=== PATIENT | female | born 1950 | race Caucasian/White ===

== ENCOUNTER 2016-07-27 08:10 | Emergency (ER) | payer MEDICARE ==
[~2016-07-27 08:10] MED LIST: BENZ100C2 PO; DOXY100T PO; PRED50TA PO; VENTOLIN HFA18 GM INH
[2016-07-27] MEDS ORDERED: HYDROcodone/APAP 5/325MG 1 TAB TABLET PO ONE (08:45)
[2016-07-27 08:48] LABS: BILIRUBIN,URINE SMALL (NEG); GLUCOSE,URINE NEGATIVE (NEG); NITRITE,URINE NEGATIVE (NEG); PH,URINE 5.5; PROTEIN,URINE NEGATIVE (NEG-TRACE)
--- NOTE | 2016-07-27 08:50 | PHYS DOC ---
Past Medical History Past Medical History: Diabetes-Type II Additional Past Medical Histor: subdural hematoma Past Surgical History: Other Additional Past Surgical Histo: subdural hematoma Alcohol Use: None Drug Use: None Adult General Chief Complaint Chief Complaint: OTHER COMPLAINTS HPI HPI Patient is a 65 year old female presents to the emergency department with caregiver who states that this morning he noticed drainage coming from the umbilicus. He states the color appears cream to red. He placed 4x4 over the site and brought her here. He denies fever, chills, nausea or vomiting. Patient does state the area is painful. Review of Systems Review of Systems Constitutional: Denies fever or chills [] Eyes: Denies change in visual acuity, redness, or eye pain [] HENT: Denies nasal congestion or sore throat [] Respiratory: Denies cough or shortness of breath [] Cardiovascular: No additional information not addressed in HPI [] GI: Denies abdominal pain, nausea, vomiting, bloody stools or diarrhea [] : Denies dysuria or hematuria [] Musculoskeletal: Denies back pain or joint pain [] Integument: Denies rash or skin lesions. C/o drainage noted from the umbilicus area Neurologic: Denies headache, focal weakness or sensory changes [] Endocrine: Denies polyuria or polydipsia [] Current Medications Current Medications Current Medications Medications (Trade) Dose Ordered Sig/Maite Start Time Stop Time Status Last Admin Dose Admin Acetaminophen/ Hydrocodone Bitart (Lortab 5/325) 1 tab 1X ONCE 07/27/16 08:45 07/27/16 08:46 DC 07/27/16 08:42 1 TAB Ibuprofen (Motrin) 800 mg 1X ONCE 07/27/16 09:45 07/27/16 09:46 DC Allergies Allergies Allergies Coded Allergies Type Severity Reaction Last Updated Verified No Known Drug Allergies 08/25/15 No Physical Exam Physical Exam Constitutional: Well developed, well nourished, no acute distress, non-toxic appearance. [] HENT: Normocephalic, atraumatic, bilateral external ears normal, oropharynx moist, no oral exudates, nose normal. [] Eyes: PERRLA, EOMI, conjunctiva normal, no discharge. [] Neck: Normal range of motion, no tenderness, supple, no stridor. [] Cardiovascular:Heart rate regular rhythm, no murmur [] Lungs & Thorax: Bilateral breath sounds clear to auscultation [] Abdomen: Bowel sounds normal, soft, tenderness noted around the umbilicus, no masses, no pulsatile masses. [] Skin: Warm, dry, no erythema, no rash. Drainage noted around the umbilicus area just at the top of her old surgical scar. Patient noted to have hard tender area approximate size of large marble. Back: No tenderness Extremities: No tenderness, no cyanosis, no clubbing, ROM intact, no edema. [] Neurologic: Alert and oriented X 3, normal motor function, normal sensory function, no focal deficits noted. [] Psychologic: Affect normal, judgement normal, mood normal. [] Current Patient Data Vital Signs Vital Signs Date Time Temp Pulse Resp B/P (MAP) Pulse Ox O2 Delivery O2 Flow Rate FiO2 07/27/16 09:53 84 187/84 (118) 94 Room Air 07/27/16 08:32 98.5 16 98.5 Lab Values Laboratory Tests Test 07/27/16 08:30 07/27/16 08:35 Urine Collection Type Void Urine Color Glendy Urine Clarity Clear Urine pH 5.5 Urine Specific Ovid 1.025 Urine Protein Negative mg/dL (NEG-TRACE) Urine Glucose (UA) Negative mg/dL (NEG) Urine Ketones (Stick) Negative mg/dL (NEG) Urine Blood Negative (NEG) Urine Nitrite Negative (NEG) Urine Bilirubin Small (NEG) Urine Urobilinogen Dipstick 1.0 mg/dL (0.2 mg/dL) Urine Leukocyte Esterase Negative (NEG) Urine RBC Rare /HPF (0-2) Urine WBC 0 /HPF (0-4) Urine Squamous Epithelial Cells Few /LPF Urine Bacteria 0 /HPF (0-FEW) Urine Mucus Marked /LPF White Blood Count 8.0 x10^3/uL (4.0-11.0) Red Blood Count 4.77 x10^6/uL (3.50-5.40) Hemoglobin 14.1 g/dL (12.0-15.5) Hematocrit 41.5 % (36.0-47.0) Mean Corpuscular Volume 87 fL (79-100) Mean Corpuscular Hemoglobin 30 pg (25-35) Mean Corpuscular Hemoglobin Concent 34 g/dL (31-37) Red Cell Distribution Width 13.3 % (11.5-14.5) Platelet Count 292 x10^3/uL (140-400) Neutrophils (%) (Auto) 64 % (31-73) Lymphocytes (%) (Auto) 23 % (24-48) L Monocytes (%) (Auto) 9 % (0-9) Eosinophils (%) (Auto) 3 % (0-3) Basophils (%) (Auto) 1 % (0-3) Neutrophils # (Auto) 5.1 x10^3uL (1.8-7.7) Lymphocytes # (Auto) 1.9 x10^3/uL (1.0-4.8) Monocytes # (Auto) 0.7 x10^3/uL (0.0-1.1) Eosinophils # (Auto) 0.3 x10^3/uL (0.0-0.7) Basophils # (Auto) 0.1 x10^3/uL (0.0-0.2) Sodium Level 146 mmol/L (136-145) H Potassium Level 3.5 mmol/L (3.5-5.1) Chloride Level 109 mmol/L (98-107) H Carbon Dioxide Level 27 mmol/L (21-32) Anion Gap 10 (6-14) Blood Urea Nitrogen 14 mg/dL (7-20) Creatinine 1.0 mg/dL (0.6-1.0) Estimated GFR (Cockcroft-Gault) 55.8 BUN/Creatinine Ratio 14 (6-20) Glucose Level 143 mg/dL (70-99) H Lactic Acid Level 1.1 mmol/L (0.4-2.0) Calcium Level 8.6 mg/dL (8.5-10.1) Total Bilirubin 0.9 mg/dL (0.2-1.0) Aspartate Amino Transferase (AST) 14 U/L (15-37) L Alanine Aminotransferase (ALT) 22 U/L (14-59) Alkaline Phosphatase 74 U/L (46-116) Total Protein 7.1 g/dL (6.4-8.2) Albumin 3.1 g/dL (3.4-5.0) L Albumin/Globulin Ratio 0.8 (1.0-1.7) L Laboratory Tests 07/27/16 08:35 Laboratory Tests 07/27/16 08:35 EKG EKG [] Radiology/Procedures Radiology/Procedures [] Course & Med Decision Making Course & Med Decision Making Pertinent Labs and Imaging studies reviewed. (See chart for details) Patients BP was elevated, provided patient with pain medication as she states she is having pain with assessment. Patient was provided with hydrocodone and ibuprofen here in the emergency department. Spoke with Dr. Serna in regards to patient's treatment regimen. She 'll be placed on doxycycline at discharge with recommendations for follow-up with him in 3-5 days. He also recommended Percocet for pain control. Patient will be discharged home in stable condition recommended warm moist packs to the area. Caregiver agrees with discharge instructions treatment regimens and follow -up recommendations. Signs symptoms to return back to emergency department as been provided. [] Dragon Disclaimer Dragon Disclaimer This electronic medical record was generated, in whole or in part, using a voice recognition dictation system. Departure Departure Impression: Primary Impression: Abscess Disposition: 01 HOME, SELF-CARE Condition: STABLE Referrals: CHRISTOPH SERNA MD (PCP) Patient Instructions: Abscess, [id number] Additional Instructions: Activity as tolerated. Keep the area clean and dry. Medications as prescribed. Percocet will cause drowsiness do not take any be alert and oriented. Warm moist packs to the area 4 times a day. Follow-up the primary care physician next 3-5 days. Return back to emergency prior signs symptoms of become worse. Scripts Doxycycline Hyclate (DOXYCYCLINE HYCLATE) 100 Mg Capsule 1 CAP PO BID, #20 CAP Prov: ELLE PENDLETON APRN 07/27/16 Oxycodone/Apap 5-325 (PERCOCET 5-325 MG TABLET) 1 Each Tablet 1 TAB PO PRN Q6HRS Y for PAIN, #15 TAB 0 Refills Prov: ELLE PENDLETON APRN 07/27/16 ELLE PENDLETON APRN July 27, 2016 08:50
[2016-07-27 08:54] LABS: BASO # 0.1 x10^3/uL (0.0-0.2); BASO % 1 % (0-3); EOS % 3 % (0-3); HEMATOCRIT 41.5 % (36.0-47.0); HEMOGLOBIN 14.1 g/dL (12.0-15.5); LYMPH # 1.9 x10^3/uL (1.0-4.8); LYMPH % 23 % (24-48); MEAN CORPUSCULAR HEMOGLOBIN 30 pg (25-35); MEAN CORPUSCULAR HGB CONC 34 g/dL (31-37); MEAN CORPUSCULAR VOLUME 87 fL (79-100); MONO % 9 % (0-9); NEUT % 64 % (31-73); PLATELET COUNT 292 x10^3/uL (140-400); RED BLOOD COUNT 4.77 x10^6/uL (3.50-5.40); RED CELL DISTRIBUTION WIDTH 13.3 % (11.5-14.5)
[2016-07-27 08:56] LABS: BACTERIA,URINE 0 /HPF (0-FEW); RBC,URINE RARE /HPF (0-2); SQUAMOUS EPITHELIAL CELL,UR FEW /LPF; WBC,URINE 0 /HPF (0-4)
--- NOTE | 2016-07-27 08:56 | RAD ---
Examination: Ultrasound abdomen limited History: History of redness and swelling in the periumbilical region Findings: Limited views of the anterior abdominal wall in the periumbilical region demonstrates no evidence of focal fluid collection or abscess identified. Impression: No evidence of focal fluid collection or abscess identified in the periumbilical region.
[2016-07-27 09:00] LABS: CALCIUM 8.6 mg/dL (8.5-10.1); GFR 55.8; POTASSIUM 3.5 mmol/L (3.5-5.1)
[2016-07-27 09:06] LABS: ALBUMIN 3.1 g/dL (3.4-5.0); ALBUMIN/GLOBULIN RATIO 0.8 (1.0-1.7); TOTAL BILIRUBIN 0.9 mg/dL (0.2-1.0); TOTAL PROTEIN 7.1 g/dL (6.4-8.2)
[2016-07-27] MEDS ORDERED: IBUPROFEN 800 MG TABLET. PO ONE (09:45)
[2016-07-27 09:53] VITALS: BP 187/84
[2016-07-27] MEDS ORDERED: OXYC-323 PO (09:57)
[2016-07-27] MEDS ORDERED: DOXY100C2 PO (09:57)
== END 2016-07-27 10:21 | disposition home or self-care (01) ==
LOC: ER 08:45
DX: L02.216 Cutaneous abscess of umbilicus (principal); R03.0 Elevated blood-pressure reading, without diagnosis of hypertension; E11.9 Type 2 diabetes mellitus without complications
CPT/HCPCS: 36415; 76705; 80053; 81001; 83605; 85027; 87040; 87071; 87075; 87205; 99285-25

== ENCOUNTER 2016-08-02 15:59 | Inpatient (IN) | payer OTHER, MEDICARE ==
[~2016-08-02] VITALS: Ht 162.6 cm; Wt 109.3 kg
[~2016-08-02 15:59] MED LIST changes: +DOXY100C2 PO; +OXYC-323 PO
[2016-08-02 16:50] VITALS: BP 176/80
[2016-08-02 16:55] VITALS: BP 176/80
[2016-08-02] MEDS ORDERED: AMIT10TA PO (17:47)
[2016-08-02] MEDS ORDERED: DOXY100C2 PO (17:47)
[2016-08-02] MEDS ORDERED: DIPH25CA3 PO (17:47)
[2016-08-02] MEDS ORDERED: BRIM5DRO2 OD (17:47)
[2016-08-02] MEDS ORDERED: BIMA2.5D OD (17:47)
[2016-08-02] MEDS ORDERED: VENTOLIN HFA18 GM INH (17:47)
[2016-08-02] MEDS ORDERED: GLIM2TAB2 PO (17:47)
[2016-08-02] MEDS ORDERED: PANT40TA5 PO (17:47)
[2016-08-02] MEDS ORDERED: VANCOMYCIN PER PHARMACY MC PRN (18:30)
[2016-08-02] MEDS ORDERED: VANCOMYCIN 1 GM in IV NORMAL SALINE 250ML 250 ML IV SCH (18:30)
[2016-08-02] MEDS ORDERED: diphenhydrAMINE HCL 25 MG CAPSULE PO PRN (18:45)
[2016-08-02] MEDS ORDERED: oxyCODONE/APAP 5/325 1 TAB TABLET PO PRN (18:45)
[2016-08-02 19:00] VITALS: BP 154/68
[2016-08-02] MEDS ORDERED: ALBUTEROL SULFATE 2.5 MG/3 ML NEBU. NEB PRN (19:00)
[2016-08-02] MEDS ORDERED: VANCOMYCIN 2 GM in IV NORMAL SALINE 500ML BAG 500 ML IV ONE (19:00)
[2016-08-02 19:43] LABS: BASO # 0.1 x10^3/uL (0.0-0.2); BASO % 1 % (0-3); EOS % 4 % (0-3); HEMATOCRIT 43.2 % (36.0-47.0); LYMPH # 1.7 x10^3/uL (1.0-4.8); LYMPH % 23 % (24-48); MEAN CORPUSCULAR HEMOGLOBIN 29 pg (25-35); MEAN CORPUSCULAR HGB CONC 32 g/dL (31-37); MEAN CORPUSCULAR VOLUME 89 fL (79-100); MONO % 9 % (0-9); NEUT % 64 % (31-73); PLATELET COUNT 267 x10^3/uL (140-400); RED BLOOD COUNT 4.86 x10^6/uL (3.50-5.40); RED CELL DISTRIBUTION WIDTH 13.4 % (11.5-14.5); WHITE BLOOD COUNT 7.4 x10^3/uL (4.0-11.0)
[2016-08-02 19:59] LABS: ALBUMIN/GLOBULIN RATIO 0.8 (1.0-1.7); CALCIUM 8.6 mg/dL (8.5-10.1); GFR 55.8; POTASSIUM 3.6 mmol/L (3.5-5.1); TOTAL BILIRUBIN 0.8 mg/dL (0.2-1.0); TOTAL PROTEIN 6.8 g/dL (6.4-8.2)
[2016-08-02] MEDS ORDERED: NON FORMULARY ITEM (Albuterol Sulfate (Ventolin Hfa Inhaler) 2 PUFF) INH SCH (20:00)
[2016-08-02] MEDS: ALBUTEROL SULFATE 2.5 MG/3 ML NEBU. NEB SCH ×2 (20:28→23:01)
[2016-08-02] MEDS: BRIMONIDINE 0.2% OPHTH SOLUTION 5ML BOTTLE. OD SCH (20:58)
[2016-08-02] MEDS: TIMOLOL 0.5% OPHTH SOLUTION 5ML BOTTLE. OD SCH (20:58)
[2016-08-02] MEDS: BENZONATATE 100 MG CAPSULE. PO SCH (20:59)
[2016-08-02] MEDS ORDERED: NON FORMULARY ITEM (Brimonidine Tartrate/Timolol (Combigan Eye Drops) 5 ML) OD SCH (21:00)
[2016-08-02] MEDS ORDERED: LATANOPROST 0.005% OPHTH SOLUTION 2.5ML BOTTLE. OD SCH (21:00)
[2016-08-02] MEDS: PIPERACILLIN/TAZOBACTAM 3.375 GM in IV NORMAL SALINE 50ML 50 ML IV SCH (21:51)
[2016-08-02] MEDS ORDERED: DEXTROSE 50% 25 GM / 50ML DISP.SYRIN. IV PRN (22:00)
[2016-08-02 23:00] VITALS: BP 149/81
[2016-08-03 03:00] VITALS: BP 166/82
[2016-08-03] MEDS: ALBUTEROL SULFATE 2.5 MG/3 ML NEBU. NEB SCH ×6 (03:55→23:01)
[2016-08-03] MEDS: PIPERACILLIN/TAZOBACTAM 3.375 GM in IV NORMAL SALINE 50ML 50 ML IV SCH ×6 (05:47→23:59)
[2016-08-03 07:00] VITALS: BP 148/77
[2016-08-03] MEDS: INSULIN ASPART 300 UNITS/3 ML INSULN.PEN SQ SCH ×3 (08:00→16:22)
[2016-08-03] MEDS: GLIMEPIRIDE 2 MG TABLET. PO SCH (08:29)
[2016-08-03] MEDS: PANTOPRAZOLE 40 MG TABLET.DR. PO SCH (08:29)
[2016-08-03] MEDS: BENZONATATE 100 MG CAPSULE. PO SCH ×3 (08:29→20:31)
[2016-08-03] MEDS: predniSONE 20 MG TABLET PO SCH (08:30)
[2016-08-03] MEDS: AMITRIPTYLINE HCL 10 MG TABLET. PO SCH (08:30)
[2016-08-03] MEDS: TIMOLOL 0.5% OPHTH SOLUTION 5ML BOTTLE. OD SCH ×2 (08:31→20:33)
[2016-08-03] MEDS: BRIMONIDINE 0.2% OPHTH SOLUTION 5ML BOTTLE. OD SCH ×2 (08:31→20:32)
--- NOTE | 2016-08-03 08:43 | PDOC ---
Infectious Disease Note Vital Sign Vital Signs Vital Signs Date Time Temp Pulse Resp B/P (MAP) Pulse Ox O2 Delivery O2 Flow Rate FiO2 08/03/16 07:34 Room Air 08/03/16 07:00 97.9 82 18 148/77 (100) 96 97.9 Labs Lab Laboratory Tests Test 08/02/16 19:30 08/02/16 20:44 08/03/16 08:04 White Blood Count 7.4 x10^3/uL (4.0-11.0) Red Blood Count 4.86 x10^6/uL (3.50-5.40) Hemoglobin 14.0 g/dL (12.0-15.5) Hematocrit 43.2 % (36.0-47.0) Mean Corpuscular Volume 89 fL (79-100) Mean Corpuscular Hemoglobin 29 pg (25-35) Mean Corpuscular Hemoglobin Concent 32 g/dL (31-37) Red Cell Distribution Width 13.4 % (11.5-14.5) Platelet Count 267 x10^3/uL (140-400) Neutrophils (%) (Auto) 64 % (31-73) Lymphocytes (%) (Auto) 23 % (24-48) Monocytes (%) (Auto) 9 % (0-9) Eosinophils (%) (Auto) 4 % (0-3) Basophils (%) (Auto) 1 % (0-3) Neutrophils # (Auto) 4.7 x10^3uL (1.8-7.7) Lymphocytes # (Auto) 1.7 x10^3/uL (1.0-4.8) Monocytes # (Auto) 0.6 x10^3/uL (0.0-1.1) Eosinophils # (Auto) 0.3 x10^3/uL (0.0-0.7) Basophils # (Auto) 0.1 x10^3/uL (0.0-0.2) Sodium Level 147 mmol/L (136-145) Potassium Level 3.6 mmol/L (3.5-5.1) Chloride Level 110 mmol/L (98-107) Carbon Dioxide Level 28 mmol/L (21-32) Anion Gap 9 (6-14) Blood Urea Nitrogen 18 mg/dL (7-20) Creatinine 1.0 mg/dL (0.6-1.0) Estimated GFR (Cockcroft-Gault) 55.8 BUN/Creatinine Ratio 18 (6-20) Glucose Level 105 mg/dL (70-99) Calcium Level 8.6 mg/dL (8.5-10.1) Total Bilirubin 0.8 mg/dL (0.2-1.0) Aspartate Amino Transf (AST/SGOT) 15 U/L (15-37) Alanine Aminotransferase (ALT/SGPT) 32 U/L (14-59) Alkaline Phosphatase 72 U/L (46-116) Total Protein 6.8 g/dL (6.4-8.2) Albumin 3.0 g/dL (3.4-5.0) Albumin/Globulin Ratio 0.8 (1.0-1.7) Glucose (Fingerstick) 117 mg/dL (70-99) 130 mg/dL (70-99) Objective Assessment EC fistula Cellulitis/irritation by bile leak Hernia surgery 2 yrs ago with mesh DM Subdural hematoma Plan Plan of Care d/c vanc cont zosyn, add diflucan ct abd and pelvis d/w dr Delmis LAURENT,MARIIA Li MD August 03, 2016 08:43
[2016-08-03] MEDS ORDERED: VANCOMYCIN 1.75 GM in IV NORMAL SALINE 500ML BAG 500 ML IV SCH (10:30)
--- NOTE | 2016-08-03 10:30 | PDOC ---
Provider Note Provider Note Pt seen .H&P to be dictated CHRISTOPH LE MD August 03, 2016 10:30
[2016-08-03 11:00] VITALS: BP 160/88
[2016-08-03] MEDS ORDERED: IOHEXOL 300 MG/ML 75 ML VIAL IV ONE (11:15)
[2016-08-03] MEDS ORDERED: CONTRAST GIVEN MC PRN (11:15)
[2016-08-03] MEDS ORDERED: IOHEXOL 240 MG/ML 50ML VIAL. PO ONE (11:15)
--- NOTE | 2016-08-03 13:02 | HP ---
ADMIT DATE: 08/02/2016 LOCATION: 426. REASON FOR ADMISSION TO THE HOSPITAL: Possible enterocutaneous fistula from the umbilical and surrounding cellulitis. HISTORY OF PRESENT ILLNESS: The patient is a 65-year-old female. She had a history of abdominal surgery with a mesh 3 years ago, at [facility], and she came to the Emergency Room last week for some drainage. The cultures done show Proteus, was given doxycycline . Came to the office, she has a more profuse drainage and lot of maceration around the umbilicus into the abdominal wall, was admitted to the hospital. ID and surgical was consulted, was started on vancomycin and Zosyn. PAST MEDICAL HISTORY: She has a history of blindness in the left eye, had a subdural hematoma 2004, gallbladder disease 2013, mesh 2013, GERD, diabetes, COPD, smoker. PAST SURGICAL HISTORY: The patient had a subdural hematoma removed in 2004, gallbladder disease 2013, ventral hernia repair in 2013, hysterectomy in 1994. ALLERGIES: No known drug allergies. MEDICATIONS AT HOME: Inhaler albuterol 2 puffs 4 times daily, amitriptyline 10 mg daily, Lumigan eye drops daily, Combigan eyedrops twice a day, Benadryl p.r.n., glimepiride 2 mg daily, Percocet q. 6 hours p.r.n. for pain, Protonix 40 mg daily. The patient was recently on prednisone, I am not sure why. PERSONAL HISTORY: Half a pack to [address] or [address] drugs. SOCIAL HISTORY: Lives with the . FAMILY HISTORY: Positive for diabetes, heart problems, strokes. REVIEW OF SYSTEMS: Complains of pain, little bit feverish, drainage from the umbilicus, maceration getting worse. PHYSICAL EXAMINATION: GENERAL: The patient is not toxic. VITAL SIGNS: Temperature 98, pulse 83, respirations 18, blood pressure 176/80, 95% on room air. HEENT: Head is atraumatic. Pupils equal. Oral cavity: Dentures. NECK: Supple. Thyroid not enlarged. JVD not elevated. CHEST: Symmetrical. CARDIOVASCULAR: S1, S2. No murmurs. LUNGS: Clear to auscultation. No wheezing. ABDOMEN: Has a scar below the umbilicus. She has a lot of maceration in the periumbilical area. Drainage coming from the umbilicus, tender and rest of the abdomen is soft. EXTERNAL GENITALIA: No Fuentes. RECTAL: Deferred. EXTREMITIES: No calf tenderness. Pulses 1+. NEUROLOGIC: Cranial nerves intact. Power 5/5 in all extremities. LABORATORY DATA: Shows a white count of 7, hemoglobin 14, platelets 267. Electrolytes: Sodium 147, potassium 3.6, chloride 110, bicarbonate 9, BUN 18, creatinine 1.0. Glucose 105. LFTs were normal. Wound cultures on admission show Proteus; ultrasound done last week was negative, of the abdomen. FINAL IMPRESSION: 1. Possible enterocutaneous fistula. 2. Drainage from the umbilicus with surrounding maceration, erythema of the abdominal wall. 3. History of abdominal surgery for hernia with mesh, 3 years ago. 4. History of cerebrovascular accident and subdural hematoma in the past. 5. Chronic obstructive pulmonary disease, smoker. PLAN: At this time, was admitted to hospital after culture was done, on vancomycin and Zosyn. ID is consulted. Surgery was consulted. CT of the abdomen and pelvis, probably may need surgery down the road. CHRISTOPH LE MD DR: PURVI/genesis JOB#: [id number] / [id number] KATHRIN
[2016-08-03 15:00] VITALS: BP 179/78
--- NOTE | 2016-08-03 15:54 | RAD ---
Indication enterocutaneous fistula. Axial images through the abdomen and pelvis were obtained. Both IV and oral contrast were administered. Approximately 75 cc of Omnipaque 300 was administered intravenously There may be a soft tissue nodule in the right middle lobe on the first image. An acute finding at either lung base is not seen. Lipoma involving the right upper lateral abdominal wall is noted. The liver and spleen appear unremarkable. No pancreatic adrenal or renal anomalies are seen. There is soft tissue irregularity in the midline in the lower abdomen upper pelvis abdominal wall with a small amount of associated air compatible with the clinical history provided, enterocutaneous fistula. There is a small amount of extravasated contrast in the area having an oval-shape measuring approximately 4 cm in length x 6 mm in depth x 2.5 cm transverse. No large abscess is seen. Occasional diverticula are seen associated with the sigmoid colon. The enterocutaneous fistula referenced communicates with small bowel. (The fistula is best demonstrated on the axial and reformatted sagittal images. IMPRESSION: No acute finding seen in the abdomen or pelvis. Enterocutaneous fistula as outlined above. Possible nodule in the right middle lobe. PQRS Compliance Statement: One or more of the following individualized dose reduction techniques were utilized for this examination: 1. Automated exposure control 2. Adjustment of the mA and/or kV according to patient size 3. Use of iterative reconstruction technique
[2016-08-03] MEDS: FLUCONAZOLE 100 MG TABLET. PO SCH (17:28)
[2016-08-03 19:15] VITALS: BP 156/78
[2016-08-03] MEDS: NON FORMULARY ITEM OD SCH (20:32)
--- NOTE | 2016-08-03 22:30 | CONS ---
DATE OF CONSULTATION: 08/03/2016 REQUESTING PHYSICIAN: Dr. Serna. REASON FOR CONSULTATION: Abdominal wall cellulitis. HISTORY OF PRESENT ILLNESS: This is a 65-year-old female with a history of subdural hematoma and COPD who presented with a week ago around the umbilicus area opened up and started draining. The patient was seen in the ER, was put on antibiotics and patient came back, now admitted for more and more drainage and the surrounding erythema around the umbilicus. The patient denies any fever. Denies any nausea, vomiting, diarrhea, chest pain, shortness of breath, abdominal pain, urinary symptoms or bowel symptoms. PAST MEDICAL HISTORY: Positive for diabetes mellitus, subdural hematoma, may have early COPD. The patient did have a hernia surgery done with evidently mesh in place 2 years ago. SOCIAL HISTORY: Positive for smoking, no alcohol use or drug use. Lives with . ALLERGIES: No known drug allergies. CURRENT MEDICATIONS: Reviewed. The patient has been started on vancomycin and Zosyn. REVIEW OF SYSTEMS: As per HPI, all other systems reviewed are negative. PHYSICAL EXAMINATION: GENERAL: Alert, oriented female, not in distress. VITAL SIGNS: Stable, afebrile. HEENT: NAD. NECK: Supple, no JVP, no lymphadenopathy. LUNGS: Clear. HEART: S1, S2 regular. ABDOMEN: Soft, nontender. There is a small opening below the umbilicus with bilious drainage and surrounding irritation with redness, tenderness and soreness in the surrounding area where the bile keeps on leaking. It soaks through every 4-5 hours. There is no organomegaly. There is no rebound tenderness. EXTREMITIES: No edema, cyanosis. SKIN: Unremarkable. NEUROLOGIC: The patient is alert, awake, able to answer simple questions appropriately, but because of the prior subdural hematoma her memory is very poor. LABORATORY DATA: White count is normal. BUN and creatinine is normal. Urinalysis is unremarkable. The patient did have a culture done on 07/27/2016, which had shown Proteus. The patient did have ultrasound done at that time, which did not show any abscess. IMPRESSION: 1. Abdominal wound with bilious drainage, most likely the patient has enterocutaneous fistula. 2. Cellulitis in the surrounding area which is basically irritation by bile leak. 3. Hernia surgery 2 years ago with mesh in place. 4. Diabetes. 5. Subdural hematoma. RECOMMENDATIONS: We would discontinue vancomycin, continue Zosyn, add Diflucan. CT abdomen and pelvis and discussion with Dr. Wang done. Thank you very much, Dr. Serna, for giving me the opportunity to participate in this patient's care. MARIIA LAURENT MD DR: HARPREET/genesis JOB#: [id number] / [id number]
[2016-08-03 23:00] VITALS: BP 137/75
[2016-08-04 03:02] VITALS: BP 134/72
[2016-08-04] MEDS: ALBUTEROL SULFATE 2.5 MG/3 ML NEBU. NEB SCH ×5 (03:50→19:52)
[2016-08-04] MEDS: PIPERACILLIN/TAZOBACTAM 3.375 GM in IV NORMAL SALINE 50ML 50 ML IV SCH ×3 (05:46→18:14)
[2016-08-04 07:00] VITALS: BP 136/64
[2016-08-04] MEDS: INSULIN ASPART 300 UNITS/3 ML INSULN.PEN SQ SCH ×3 (08:00→17:00)
[2016-08-04] MEDS: BRIMONIDINE 0.2% OPHTH SOLUTION 5ML BOTTLE. OD SCH ×3 (08:29→20:45)
[2016-08-04] MEDS: TIMOLOL 0.5% OPHTH SOLUTION 5ML BOTTLE. OD SCH ×3 (08:30→20:46)
[2016-08-04] MEDS: BENZONATATE 100 MG CAPSULE. PO SCH ×3 (08:30→20:41)
[2016-08-04] MEDS: GLIMEPIRIDE 2 MG TABLET. PO SCH (08:30)
[2016-08-04] MEDS: AMITRIPTYLINE HCL 10 MG TABLET. PO SCH (08:30)
[2016-08-04] MEDS: PANTOPRAZOLE 40 MG TABLET.DR. PO SCH (08:30)
[2016-08-04] MEDS: FLUCONAZOLE 100 MG TABLET. PO SCH (08:31)
[2016-08-04] MEDS: predniSONE 20 MG TABLET PO SCH (08:31)
--- NOTE | 2016-08-04 08:39 | PDOC ---
Infectious Disease Note Subjective Subjective pt feeling better ROS ROS GEN: Denies fevers, chills, sweats HEENT: Denies blurred vision, sore throat CV: Denies chest pain RESP: Denies shortness of air, cough GI: Denies n/v/d NEURO: Denies confusion, dizziness MSK: Denies weakness, joint pain/swelling Vital Sign Vital Signs Vital Signs Date Time Temp Pulse Resp B/P (MAP) Pulse Ox O2 Delivery O2 Flow Rate FiO2 08/04/16 07:29 98 Room Air 08/04/16 03:02 98.3 88 18 134/72 (92) 98.3 Physical Exam PHYSICAL EXAM GENERAL: NAD, Alert HEENT: PERRL, OC/OP NECK: Supple, no JVD, no LN LUNGS: Clear HEART: S1S2, no gallop, no murmur ABD: Soft, NT, no organomegaly, no rebound,, cellulitis EXT: No edema, no cyanosis SVP OF DIGITAL: Alert, oriented x 3, no focal neurologic deficit SKIN: No rash IV: ok Labs Lab Laboratory Tests Test 08/03/16 11:50 08/03/16 16:08 08/03/16 21:05 08/04/16 07:29 Glucose (Fingerstick) 100 mg/dL (70-99) 71 mg/dL (70-99) 117 mg/dL (70-99) 103 mg/dL (70-99) Objective Assessment EC fistula Cellulitis/irritation by bile leak Hernia surgery 2 yrs ago with mesh DM Subdural hematoma Plan Plan of Care cont zosyn, add diflucan NPO, surgery MARIIA LAURENT MD August 04, 2016 08:39
--- NOTE | 2016-08-04 09:16 | CONS ---
DATE OF CONSULTATION: 08/03/2016 REFERRING PHYSICIANS: Dr. Salomón Bass and Dr. Serna. CHIEF COMPLAINT: None. DIAGNOSIS: Periumbilical drainage/cellulitis, concern for possible fistula. HISTORY OF PRESENT ILLNESS: This is a 65-year-old female with a history of subdural hematoma and has a caregiver. She had previously been brought to the Emergency Room on 07/27/2016, noted to have some drainage from the umbilicus. Antibiotics were prescribed at that time as well as pain medicine; however, persistently became a problem and she was subsequently readmitted for evaluation. She has seen in her hospital room. She is a very poor historian. She is awake, alert and answers simple questions, but she is unaware as to why she is here. History is primarily obtained from the chart. ALLERGIES: She has no known drug allergies. MEDICATIONS: Reviewed. PAST MEDICAL HISTORY: Diabetes, history of subdural hematoma. SOCIAL HISTORY: No significant tobacco or alcohol. FAMILY HISTORY: Unknown. REVIEW OF SYSTEMS: Unobtainable. PHYSICAL EXAMINATION: GENERAL: Well-developed, morbidly obese female in no obvious distress. VITAL SIGNS: She is afebrile. Vital signs within normal limits. HEENT: Normocephalic, atraumatic. Pupils equal. Extraocular motions intact. NECK: Supple. Trachea is midline. No chest wall tenderness to palpation. CHEST: Bilateral chest excursion. ABDOMEN: Soft, morbidly obese, nondistended, nontender to palpation. She has some periumbilical inflammatory changes with some excoriated skin. There is some minimal brown serous fluid from a surgical scar above the umbilicus. EXTREMITIES: No clubbing, cyanosis or edema. IMAGING STUDIES: Previous ultrasound from 07/27/2016 was unremarkable. LABORATORY DATA: Essentially unremarkable. IMPRESSION AND RECOMMENDATIONS: A 65-year-old female with periumbilical inflammatory change/cellulitis with drainage. Discussed with Dr. Bass. He reported the patient had undergone a mesh hernia repair 2 years ago. Certainly, concern would be that the mesh may be involved and/or fistula. I agree with imaging of the abdominal cavity as well as local wound care. I will follow along for possible intervention. Thank you for allowing me participation in the care of this pleasant patient. DANYA EPSTEIN MD DR: BIANCA/genesis JOB#: [id number] / [id number] SALOMÓN Bassett MD, CARLO MD KODURI, VINAYA MD
--- NOTE | 2016-08-04 10:12 | PDOC ---
PROGRESS NOTES Subjective Subjective No new problems Objective Objective Vital Signs Date Time Temp Pulse Resp B/P (MAP) Pulse Ox O2 Delivery O2 Flow Rate FiO2 08/04/16 07:29 98 Room Air 08/04/16 07:00 97.9 92 22 136/64 (88) 97.9 Physical Exam Abdomen: Normal bowel sounds, Soft Heart: Regular rate, Normal S1, Normal S2 Extremities: No clubbing General: Oriented X3 HEENT: Atraumatic Lungs: Clear to auscultation MUSCULOSKELETAL: No deformity Neck: Supple Neuro: Normal speech Psych/Mental Status: Mental status NL Assessment Assessment FINAL IMPRESSION: 1. Enterocutaneous fistula. 2. Drainage from the umbilicus with surrounding maceration, erythema of the abdominal wall. 3. History of abdominal surgery for hernia with? mesh, 3 years ago. 4. History of cerebrovascular accident and subdural hematoma in the past. 5. Chronic obstructive pulmonary disease, smoker. PLAN: CT scan consistent with fistula between small intestine and abd wall. At this time, was admitted to hospital after culture was done, on vancomycin and Zosyn. ID is consulted. Surgery was consulted. need surgery ,waiting for dr Montalvo decision. Problems: Comment Review of Relevant I have reviewed the following items ranulfo (where applicable) has been applied. Labs Laboratory Tests Test 08/03/16 11:50 08/03/16 16:08 08/03/16 21:05 08/04/16 07:29 Glucose (Fingerstick) 100 mg/dL (70-99) 71 mg/dL (70-99) 117 mg/dL (70-99) 103 mg/dL (70-99) Microbiology 08/02/16 Gram Stain - Final, Complete Medications Current Medications Info (Do NOT chart on this entry -- for MONITORING) 1 each PRN DAILY PRN MC SEE COMMENTS; Start 08/03/16 at 11:15; Stop 08/05/16 at 11:14 Iohexol (Omnipaque 240 Mg/ml) 30 ml 1X ONCE PO Last administered on 08/03/16 11:15; Start 08/03/16 at 11:15; Stop 08/03/16 at 11:16; Status DC Iohexol (Omnipaque 300 Mg/ml) 75 ml 1X ONCE IV Last administered on 08/03/16 11:15; Start 08/03/16 at 11:15; Stop 08/03/16 at 11:16; Status DC Non-Formulary Medication 1 ea QHS OD Last administered on 08/03/16t 20:32; Start 08/03/16 at 21:00 Vancomycin HCl 1 each 1X ONCE MC ; Start 08/04/16 at 10:00; Stop 08/04/16 at 10 :01; Status Cancel Vancomycin HCl 1.75 gm/Sodium Chloride 500 ml @ 250 mls/hr Q12H IV ; Start at 10:30; Stop 08/03/16 at 10:30; Status DC Vitals/I & O Vital Sign - Last 24 Hours 08/03/16 08/03/16 08/03/16 08/03/16 10:49 11:00 15:00 15:56 Temp 98.1 97.5 98.1 97.5 Pulse 77 82 Resp 22 22 B/P (MAP) 160/88 (112) 179/78 (111) Pulse Ox 97 96 O2 Delivery Room Air Room Air Room Air Room Air 08/03/16 08/03/16 08/03/16 08/03/16 19:15 19:50 23:00 23:01 Temp 97.5 98.7 97.5 98.7 Pulse 90 88 Resp 18 18 B/P (MAP) 156/78 (104) 137/75 (95) Pulse Ox 93 96 94 O2 Delivery Room Air Room Air Room Air Room Air 08/04/16 08/04/16 08/04/16 08/04/16 03:02 07:00 07:15 07:29 Temp 98.3 97.9 98.3 97.9 Pulse 88 92 Resp 18 22 B/P (MAP) 134/72 (92) 136/64 (88) Pulse Ox 95 97 98 O2 Delivery Room Air Room Air Room Air Room Air CHRISTOPH LE MD August 04, 2016 10:12
[2016-08-04 11:00] VITALS: BP 148/65
--- NOTE | 2016-08-04 12:46 | PDOC ---
SURGICAL PROGRESS NOTE Subjective Pt without new c/o, regular diet at bedside Vital Signs Vital Signs Date Time Temp Pulse Resp B/P (MAP) Pulse Ox O2 Delivery O2 Flow Rate FiO2 08/04/16 11:12 Room Air 08/04/16 11:00 97.6 65 24 148/65 (92) 99 97.6 General: Alert, Cooperative, No acute distress Abdomen: Soft, No tenderness, Other (dressing c/d/i) Labs Laboratory Tests Test 08/02/16 19:30 08/02/16 20:44 08/03/16 08:04 08/03/16 11:50 White Blood Count 7.4 x10^3/uL (4.0-11.0) Red Blood Count 4.86 x10^6/uL (3.50-5.40) Hemoglobin 14.0 g/dL (12.0-15.5) Hematocrit 43.2 % (36.0-47.0) Mean Corpuscular Volume 89 fL (79-100) Mean Corpuscular Hemoglobin 29 pg (25-35) Mean Corpuscular Hemoglobin Concent 32 g/dL (31-37) Red Cell Distribution Width 13.4 % (11.5-14.5) Platelet Count 267 x10^3/uL (140-400) Neutrophils (%) (Auto) 64 % (31-73) Lymphocytes (%) (Auto) 23 % (24-48) Monocytes (%) (Auto) 9 % (0-9) Eosinophils (%) (Auto) 4 % (0-3) Basophils (%) (Auto) 1 % (0-3) Neutrophils # (Auto) 4.7 x10^3uL (1.8-7.7) Lymphocytes # (Auto) 1.7 x10^3/uL (1.0-4.8) Monocytes # (Auto) 0.6 x10^3/uL (0.0-1.1) Eosinophils # (Auto) 0.3 x10^3/uL (0.0-0.7) Basophils # (Auto) 0.1 x10^3/uL (0.0-0.2) Sodium Level 147 mmol/L (136-145) Potassium Level 3.6 mmol/L (3.5-5.1) Chloride Level 110 mmol/L (98-107) Carbon Dioxide Level 28 mmol/L (21-32) Anion Gap 9 (6-14) Blood Urea Nitrogen 18 mg/dL (7-20) Creatinine 1.0 mg/dL (0.6-1.0) Estimated GFR (Cockcroft-Gault) 55.8 BUN/Creatinine Ratio 18 (6-20) Glucose Level 105 mg/dL (70-99) Calcium Level 8.6 mg/dL (8.5-10.1) Total Bilirubin 0.8 mg/dL (0.2-1.0) Aspartate Amino Transf (AST/SGOT) 15 U/L (15-37) Alanine Aminotransferase (ALT/SGPT) 32 U/L (14-59) Alkaline Phosphatase 72 U/L (46-116) Total Protein 6.8 g/dL (6.4-8.2) Albumin 3.0 g/dL (3.4-5.0) Albumin/Globulin Ratio 0.8 (1.0-1.7) Glucose (Fingerstick) 117 mg/dL (70-99) 130 mg/dL (70-99) 100 mg/dL (70-99) Test 08/03/16 16:08 08/03/16 21:05 08/04/16 07:29 08/04/16 11:56 Glucose (Fingerstick) 71 mg/dL (70-99) 117 mg/dL (70-99) 103 mg/dL (70-99) 93 mg/dL (70-99) Laboratory Tests Test 08/03/16 16:08 08/03/16 21:05 08/04/16 07:29 08/04/16 11:56 Glucose (Fingerstick) 71 mg/dL (70-99) 117 mg/dL (70-99) 103 mg/dL (70-99) 93 mg/dL (70-99) Assessment/Plan EC fistula by exam and CT bowel rest, TPN d/w pt and pt's will obtain old records as mesh is probably involved, will consider surgical intervention next week Problems: DANYA EPSTEIN MD August 04, 2016 12:46
[2016-08-04 15:00] VITALS: BP 152/72
[2016-08-04] MEDS ORDERED: fentaNYL PF VIAL 100 MCG/2 ML VIAL IV PRN (17:00)
[2016-08-04] MEDS: AMINO AC 3%/ELECTROLYTE/GLYCER 1,000 ML IV SCH (17:00)
[2016-08-04 19:00] VITALS: BP 178/88
[2016-08-04] MEDS: NON FORMULARY ITEM OD SCH (20:40)
[2016-08-04] MEDS: fentaNYL PF VIAL 100 MCG/2 ML VIAL IV PRN (20:41)
[2016-08-04] MEDS: cloNIDine TTS-1 1 PATCH PATCH.TDWK TD SCH (21:40)
[2016-08-04 23:00] VITALS: BP 169/83
[2016-08-05] MEDS: PIPERACILLIN/TAZOBACTAM 3.375 GM in IV NORMAL SALINE 50ML 50 ML IV SCH ×4 (00:43→17:37)
[2016-08-05 03:00] VITALS: BP 172/82
[2016-08-05] MEDS: AMINO AC 3%/ELECTROLYTE/GLYCER 1,000 ML IV SCH ×2 (06:13→17:37)
[2016-08-05 07:00] VITALS: BP 168/76
[2016-08-05] MEDS: ALBUTEROL SULFATE 2.5 MG/3 ML NEBU. NEB SCH ×4 (07:07→20:42)
--- NOTE | 2016-08-05 08:06 | PDOC ---
Infectious Disease Note Subjective Subjective pt feeling better ROS ROS GEN: Denies fevers, chills, sweats HEENT: Denies blurred vision, sore throat CV: Denies chest pain RESP: Denies shortness of air, cough GI: Denies n/v/d NEURO: Denies confusion, dizziness MSK: Denies weakness, joint pain/swelling Vital Sign Vital Signs Vital Signs Date Time Temp Pulse Resp B/P (MAP) Pulse Ox O2 Delivery O2 Flow Rate FiO2 08/05/16 07:07 97 Room Air 08/05/16 03:00 97.5 82 18 172/82 (112) 97.5 Physical Exam PHYSICAL EXAM GENERAL: NAD, Alert HEENT: PERRL, OC/OP NECK: Supple, no JVD, no LN LUNGS: Clear HEART: S1S2, no gallop, no murmur ABD: Soft, NT, no organomegaly, no rebound EXT: No edema, no cyanosis CAKE CUTTER MACHINE: Alert, oriented x 3, no focal neurologic deficit SKIN: No rash IV: ok Labs Lab Laboratory Tests Test 08/04/16 11:56 08/04/16 16:41 08/04/16 20:39 08/05/16 07:32 Glucose (Fingerstick) 93 mg/dL (70-99) 83 mg/dL (70-99) 85 mg/dL (70-99) 100 mg/dL (70-99) Objective Assessment EC fistula Cellulitis/irritation by bile leak Hernia surgery 2 yrs ago with mesh DM Subdural hematoma Plan Plan of Care cont mary shah NPO, surgery MARIIA LAURENT MD August 05, 2016 08:06
[2016-08-05] MEDS: INSULIN ASPART 300 UNITS/3 ML INSULN.PEN SQ SCH ×3 (08:34→17:00)
[2016-08-05] MEDS: predniSONE 20 MG TABLET PO SCH (08:38)
[2016-08-05] MEDS: FLUCONAZOLE 100 MG TABLET. PO SCH (08:38)
[2016-08-05] MEDS: AMITRIPTYLINE HCL 10 MG TABLET. PO SCH (08:38)
[2016-08-05] MEDS: GLIMEPIRIDE 2 MG TABLET. PO SCH (08:38)
[2016-08-05] MEDS: PANTOPRAZOLE 40 MG TABLET.DR. PO SCH (08:38)
[2016-08-05] MEDS: BENZONATATE 100 MG CAPSULE. PO SCH ×3 (08:39→21:00)
[2016-08-05] MEDS: BRIMONIDINE 0.2% OPHTH SOLUTION 5ML BOTTLE. OD SCH ×2 (08:46→21:00)
[2016-08-05] MEDS ORDERED: TIMOLOL 0.5% OPHTH SOLUTION 5ML BOTTLE. OD SCH (09:00)
[2016-08-05] MEDS: NON FORMULARY ITEM OD SCH ×2 (09:30→21:00)
[2016-08-05 11:00] VITALS: BP 162/82
[2016-08-05] MEDS: fentaNYL PF VIAL 100 MCG/2 ML VIAL IV PRN (11:35)
--- NOTE | 2016-08-05 11:37 | PDOC ---
LUDMILA BROOKS HELP DESK TECHNICIAN 08/05/16 1137: SURGICAL PROGRESS NOTE Subjective no complaints headed to the bathroom Vital Signs Vital Signs Date Time Temp Pulse Resp B/P (MAP) Pulse Ox O2 Delivery O2 Flow Rate FiO2 08/05/16 11:35 Room Air 08/05/16 10:59 97 08/05/16 07:00 97.9 84 20 168/76 (106) 97.9 I&O Intake and Output 08/05/16 07:00 Intake Total 620 ml Balance 620 ml Intake Oral 620 ml # Voids 11 General: Alert, Oriented X3, Cooperative, No acute distress Abdomen: Soft, Other (dressing in place) Labs Laboratory Tests Test 08/03/16 11:50 08/03/16 16:08 08/03/16 21:05 08/04/16 07:29 Glucose (Fingerstick) 100 mg/dL (70-99) 71 mg/dL (70-99) 117 mg/dL (70-99) 103 mg/dL (70-99) Test 08/04/16 11:56 08/04/16 16:41 08/04/16 20:39 08/05/16 07:32 Glucose (Fingerstick) 93 mg/dL (70-99) 83 mg/dL (70-99) 85 mg/dL (70-99) 100 mg/dL (70-99) Laboratory Tests Test 08/04/16 11:56 08/04/16 16:41 08/04/16 20:39 08/05/16 07:32 Glucose (Fingerstick) 93 mg/dL (70-99) 83 mg/dL (70-99) 85 mg/dL (70-99) 100 mg/dL (70-99) Problem List EC fistula PICC, TPN, bowel rest possible surgical intervention next week with Dr Wang Problems: WILLY DENISE MD 08/05/16 1331: SURGICAL PROGRESS NOTE Assessment/Plan Agree with Rohith's assessment and plan. Problems: LUDMILA BROOKS [employer] HELP DESK TECHNICIAN August 05, 2016 11:37 WILLY DENISE MD August 05, 2016 13:31
[2016-08-05 12:18] LABS: CALCIUM 9.1 mg/dL (8.5-10.1); CREATININE 0.8 mg/dL (0.6-1.0); GFR 72.2; POTASSIUM 4.2 mmol/L (3.5-5.1)
[2016-08-05 12:22] LABS: MAGNESIUM 2.5 mg/dL (1.8-2.4); PHOSPHORUS 3.8 mg/dL (2.6-4.7)
[2016-08-05 12:28] LABS: INR 1.1 (0.8-1.1); PROTHROMBIN TIME PATIENT 13.4 SEC (11.7-14.0)
[2016-08-05] MEDS ORDERED: LIDOCAINE 1% / SOD BICARB 8.4% 20 ML VIAL. IJ ONE ×2 (13:02→13:30)
[2016-08-05] MEDS: TPN PER PHARMACY MC PRN (13:16)
--- NOTE | 2016-08-05 13:38 | PDOC ---
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 Picc for TPN requested by general surgery. Post-Procedure Diagnosis Post-Procedure Diagnosis Same Procedure Performed Procedure Performed Sono/fluoro guided Power Picc insertion. Type of Anesthesia Type of Anesthesia Local Estimated Blood Loss EBL: Trace Drain/Tubes Drains/Tubes Right cephalic vein 5F 2L 43cm Power Picc Condition of Patient Condition of Patient Stable. No apparent complication. Disposition Disposition From IR return to [facility]. OK to use Power Picc. Full report to follow. SAM FIELDS MD August 05, 2016 13:38
[2016-08-05 15:00] VITALS: BP 167/76
--- NOTE | 2016-08-05 18:04 | PDOC ---
PROGRESS NOTES Subjective Subjective NPO Objective Objective Vital Signs Date Time Temp Pulse Resp B/P (MAP) Pulse Ox O2 Delivery O2 Flow Rate FiO2 08/05/16 15:00 98.2 83 20 167/76 (106) 94 Room Air 98.2 Intake and Output 08/05/16 07:00 Intake Total 620 ml Balance 620 ml Intake Oral 620 ml # Voids 11 Physical Exam Abdomen: Soft, Other (dressing in place) Heart: Regular rate, Normal S1, Normal S2 Extremities: No clubbing General: Alert, Oriented X3, Cooperative, No acute distress HEENT: Atraumatic Lungs: Clear to auscultation MUSCULOSKELETAL: No deformity Neck: Supple Neuro: Normal speech Psych/Mental Status: Mental status NL Assessment Assessment FINAL IMPRESSION: 1. Enterocutaneous fistula. 2. Drainage from the umbilicus with surrounding maceration, erythema of the abdominal wall. 3. History of abdominal surgery for hernia with? mesh, 3 years ago. 4. History of cerebrovascular accident and subdural hematoma in the past. 5. Chronic obstructive pulmonary disease, smoker. PLAN: NPO. TPN, s/p picc line placed Surgery next week. iv antibiotics. CT scan consistent with fistula between small intestine and abd wall. At this time, was admitted to hospital after culture was done, on vancomycin and Zosyn. ID is consulted. Surgery was consulted. need surgery ,waiting for dr Montalvo decision. Problems: Comment Review of Relevant I have reviewed the following items ranulfo (where applicable) has been applied. Labs Laboratory Tests Test 08/04/16 20:39 08/05/16 07:32 08/05/16 11:30 08/05/16 11:31 Glucose (Fingerstick) 85 mg/dL (70-99) 100 mg/dL (70-99) 122 mg/dL (70-99) Sodium Level 144 mmol/L (136-145) Potassium Level 4.2 mmol/L (3.5-5.1) Chloride Level 108 mmol/L (98-107) Carbon Dioxide Level 25 mmol/L (21-32) Anion Gap 11 (6-14) Blood Urea Nitrogen 12 mg/dL (7-20) Creatinine 0.8 mg/dL (0.6-1.0) Estimated GFR (Cockcroft-Gault) 72.2 Glucose Level 109 mg/dL (70-99) Calcium Level 9.1 mg/dL (8.5-10.1) Phosphorus Level 3.8 mg/dL (2.6-4.7) Magnesium Level 2.5 mg/dL (1.8-2.4) Test 08/05/16 12:10 08/05/16 16:15 Prothrombin Time 13.4 SEC (11.7-14.0) Prothromb Time International Ratio 1.1 (0.8-1.1) Glucose (Fingerstick) 107 mg/dL (70-99) Microbiology 08/02/16 Gram Stain - Final, Complete Medications Current Medications Clonidine HCl (Catapres Tts-1) 1 patch WEEKLY TD Last administered on 21:40; Start 08/04/16 at 21:15 Fentanyl Citrate (Fentanyl 2ml Vial) 50 mcg PRN Q3HRS PRN IV PAIN Last administered on 08/05/16 11:35; Start 08/04/16 at 19:00 Fluconazole/ Sodium Chloride 100 ml @ 100 mls/hr Q24H IV ; Start 08/05/16 at 17 :00 Heparin Sodium/ Sodium Chloride 500 ml @ As Directed STK-MED ONCE .ROUTE ; Start 08/05/16 at 13:02; Stop 08/05/16 at 13:03; Status DC Heparin Sodium/ Sodium Chloride 1,000 unit 1X ONCE IART Last administered on 13:31; Start 08/05/16 at 13:30; Stop 08/05/16 at 13:31; Status DC Info 1 each PRN DAILY PRN MC SEE COMMENTS Last administered on 08/05/16 13:16 ; Start 08/05/16 at 11:15 Lidocaine/Sodium Bicarbonate (Buffered Lidocaine 1%) 20 ml 1X ONCE IJ Last administered on 08/05/16 13:31; Start 08/05/16 at 13:30; Stop 08/05/16 at 13:31 ; Status DC Lidocaine/Sodium Bicarbonate (Buffered Lidocaine 1%) 20 ml STK-MED ONCE IJ ; Start 08/05/16 at 13:02; Stop 08/05/16 at 13:03; Status DC Non-Formulary Medication 1 ea BID OD Last administered on 08/05/16 09:30; Start 08/05/16 at 09:30 Sodium Chloride 50 meq/Potassium Chloride 50 meq/ Potassium Phosphate 13.6 mmol/ Magnesium Sulfate 5 meq/ Calcium Gluconate 10 meq/ Multivitamins 10 ml/Chromium / Copper/Manganese/ Seleni/Zn 1 ml/ Total Parenteral Nutrition/Amino Acids/ Dextrose/ Fat Emulsion Intravenous 1,512 ml @ 63 mls/hr TPN CONT IV ; Start at 22:00; Stop 08/06/16 at 21:59 Timolol Maleate (Timoptic 0.5% Oph) 1 drop DAILY OD Last administered on 08/05t 08:46; Start 08/05/16 at 09:00 Vitals/I & O Vital Sign - Last 24 Hours 08/04/16 08/04/16 08/04/16 08/04/16 18:14 19:00 19:38 19:54 Temp 97.7 97.7 Pulse 86 Resp 18 B/P (MAP) 178/88 (118) Pulse Ox 92 99 O2 Delivery Room Air Room Air Room Air Room Air 08/04/16 08/04/16 08/05/16 08/05/16 20:41 23:00 03:00 07:00 Temp 97.7 97.5 97.9 97.7 97.5 97.9 Pulse 81 82 84 Resp 18 18 20 B/P (MAP) 169/83 (111) 172/82 (112) 168/76 (106) Pulse Ox 96 91 91 O2 Delivery Room Air Room Air Room Air Room Air 08/05/16 08/05/16 08/05/16 08/05/16 07:07 07:30 10:59 11:00 Temp 97.9 97.9 Pulse 79 Resp 22 B/P (MAP) 162/82 (108) Pulse Ox 97 97 92 O2 Delivery Room Air Room Air Room Air Room Air 08/05/16 08/05/16 08/05/16 11:35 12:30 15:00 Temp 98.2 98.2 Pulse 83 Resp 20 B/P (MAP) 167/76 (106) Pulse Ox 94 O2 Delivery Room Air Room Air Room Air Intake and Output 08/04/16 08/04/16 08/05/16 15:00 23:00 07:00 Intake Total 620 ml 0 ml 0 ml Balance 620 ml 0 ml 0 ml CHRISTOPH LE MD August 05, 2016 18:04
[2016-08-05] MEDS ORDERED: hydrALAZINE 20 MG/ML VIAL. IVP PRN (18:15)
[2016-08-05] MEDS: FLUCONAZOLE 200MG/100ML PREMIX 100 ML IV SCH (18:30)
[2016-08-05 19:10] VITALS: BP 162/84
[2016-08-05] MEDS ORDERED: DEXTROSE 70% IV SCH ×10 (22:00)
[2016-08-05] MEDS ORDERED: TOTAL PARENTERAL NUTRITION IV SCH ×10 (22:00)
[2016-08-05] MEDS ORDERED: AMINO ACIDS IV SCH ×10 (22:00)
[2016-08-05] MEDS ORDERED: [UNRECOGNIZED DRUG - OTHER] IV SCH ×10 (22:00)
[2016-08-05 22:51] VITALS: BP 168/81
[2016-08-06] MEDS: PIPERACILLIN/TAZOBACTAM 3.375 GM in IV NORMAL SALINE 50ML 50 ML IV SCH ×4 (00:30→18:08)
[2016-08-06 03:24] VITALS: BP 168/96
[2016-08-06] MEDS: PANTOPRAZOLE IV PUSH 40 MG VIAL. IVP SCH (06:20)
[2016-08-06 07:00] VITALS: BP 154/48
[2016-08-06 07:00] LABS: CALCIUM 8.8 mg/dL (8.5-10.1); CREATININE 0.8 mg/dL (0.6-1.0); GFR 72.2; MAGNESIUM 2.3 mg/dL (1.8-2.4); PHOSPHORUS 3.3 mg/dL (2.6-4.7); POTASSIUM 4.1 mmol/L (3.5-5.1)
--- NOTE | 2016-08-06 07:01 | RAD ---
Ultrasound and fluoro guided power PICC placement Indication: 65-year-old female with enterocutaneous fistula, requiring bowel rest. Image guided power PICC insertion for TPN has been requested by general surgery. Fluoro time: 0.6 minutes Kerma-Area Product: 1 Gycm2 Anesthesia: Local only Sterility: All elements of maximal sterile barrier technique, hand hygiene, skin preparation, and, if ultrasound was used, sterile ultrasound technique were followed. Procedure: Informed consent was obtained from the patient's . She was placed supine on the angiography table. Preliminary ultrasound examination of right upper arm revealed wide patency of right cephalic vein, which was documented with a hard copy ultrasound image. Right upper arm was then prepped and draped in the usual sterile fashion, utilizing all elements of maximal sterile barrier technique, as described above. Using aseptic technique, local anesthesia, direct ultrasound guidance, and the micropuncture system, successful percutaneous entry was achieved into right cephalic vein at the level of distal humerus. A 5 [place] dual lumen power PICC was trimmed to 43 cm in length, was inserted through a 5 [place] peel-away sheath, and was easily advanced centrally under fluoroscopic control. Tip of the power PICC was positioned at upper right atrium. This was documented with a single fluoroscopic spot image. The PICC was then demonstrated to flush and aspirate normally, and was secured at the skin exit site utilizing suture and sterile dressing. The patient tolerated the procedure well without apparent complication. Impression: Successful, uneventful ultrasound and fluoro guided placement of right cephalic vein 5 [place] dual-lumen 43 cm power PICC, as described.
[2016-08-06] MEDS: ALBUTEROL SULFATE 2.5 MG/3 ML NEBU. NEB SCH ×4 (07:07→20:59)
[2016-08-06] MEDS: INSULIN ASPART 300 UNITS/3 ML INSULN.PEN SQ SCH ×3 (08:20→16:52)
[2016-08-06] MEDS: predniSONE 20 MG TABLET PO SCH (08:21)
[2016-08-06] MEDS: BENZONATATE 100 MG CAPSULE. PO SCH ×3 (08:21→20:48)
[2016-08-06] MEDS: GLIMEPIRIDE 2 MG TABLET. PO SCH (08:21)
[2016-08-06] MEDS: AMITRIPTYLINE HCL 10 MG TABLET. PO SCH (08:21)
[2016-08-06] MEDS: COMBIGAN EYE DROPS OS SCH ×2 (08:25→20:49)
[2016-08-06] MEDS: BRIMONIDINE 0.2% OPHTH SOLUTION 5ML BOTTLE. OD SCH (08:27)
[2016-08-06] MEDS: LUMIGAN EYE DROPS OD SCH (08:28)
--- NOTE | 2016-08-06 09:59 | PDOC ---
Infectious Disease Note Subjective Subjective pt feeling better ROS ROS GEN: Denies fevers, chills, sweats HEENT: Denies blurred vision, sore throat CV: Denies chest pain RESP: Denies shortness of air, cough GI: Denies n/v/d NEURO: Denies confusion, dizziness MSK: Denies weakness, joint pain/swelling Vital Sign Vital Signs Vital Signs Date Time Temp Pulse Resp B/P (MAP) Pulse Ox O2 Delivery O2 Flow Rate FiO2 08/06/16 08:25 Room Air 08/06/16 07:08 96 08/06/16 07:00 97.6 89 20 154/48 (83) 97.6 Physical Exam PHYSICAL EXAM GENERAL: NAD, Alert HEENT: PERRL, OC/OP NECK: Supple, no JVD, no LN LUNGS: Clear HEART: S1S2, no gallop, no murmur ABD: Soft, NT, no organomegaly, no rebound,, fistula drainage + EXT: No edema, no cyanosis MOTION PICTURE FILM EXAMINER: Alert, oriented x 3, no focal neurologic deficit SKIN: No rash IV: ok Labs Lab Laboratory Tests Test 08/05/16 11:30 08/05/16 11:31 08/05/16 12:10 08/05/16 16:15 Sodium Level 144 mmol/L (136-145) Potassium Level 4.2 mmol/L (3.5-5.1) Chloride Level 108 mmol/L (98-107) Carbon Dioxide Level 25 mmol/L (21-32) Anion Gap 11 (6-14) Blood Urea Nitrogen 12 mg/dL (7-20) Creatinine 0.8 mg/dL (0.6-1.0) Estimated GFR (Cockcroft-Gault) 72.2 Glucose Level 109 mg/dL (70-99) Calcium Level 9.1 mg/dL (8.5-10.1) Phosphorus Level 3.8 mg/dL (2.6-4.7) Magnesium Level 2.5 mg/dL (1.8-2.4) Glucose (Fingerstick) 122 mg/dL (70-99) 107 mg/dL (70-99) Prothrombin Time 13.4 SEC (11.7-14.0) Prothromb Time International Ratio 1.1 (0.8-1.1) Test 08/05/16 20:43 08/06/16 06:35 08/06/16 07:39 Glucose (Fingerstick) 106 mg/dL (70-99) 143 mg/dL (70-99) Sodium Level 143 mmol/L (136-145) Potassium Level 4.1 mmol/L (3.5-5.1) Chloride Level 109 mmol/L (98-107) Carbon Dioxide Level 26 mmol/L (21-32) Anion Gap 8 (6-14) Blood Urea Nitrogen 12 mg/dL (7-20) Creatinine 0.8 mg/dL (0.6-1.0) Estimated GFR (Cockcroft-Gault) 72.2 Glucose Level 126 mg/dL (70-99) Calcium Level 8.8 mg/dL (8.5-10.1) Phosphorus Level 3.3 mg/dL (2.6-4.7) Magnesium Level 2.3 mg/dL (1.8-2.4) Objective Assessment EC fistula Cellulitis/irritation by bile leak Hernia surgery 2 yrs ago with mesh DM Subdural hematoma Plan Plan of Care cont mary shah NPO, surgery MARIIA LAURENT MD August 06, 2016 09:59
--- NOTE | 2016-08-06 10:23 | PDOC ---
PROGRESS NOTES Subjective Subjective lot of drainage from umbilicus Objective Objective Vital Signs Date Time Temp Pulse Resp B/P (MAP) Pulse Ox O2 Delivery O2 Flow Rate FiO2 08/06/16 08:25 Room Air 08/06/16 07:08 96 08/06/16 07:00 97.6 89 20 154/48 (83) 97.6 Intake and Output 08/06/16 07:00 Intake Total 0 ml Balance 0 ml Intake Oral 0 ml # Voids 1 # Bowel Movements 1 Physical Exam Abdomen: Soft, Other (dressing in place) Heart: Regular rate, Normal S1, Normal S2 Extremities: No clubbing General: Alert, Oriented X3, Cooperative, No acute distress HEENT: Atraumatic Lungs: Clear to auscultation MUSCULOSKELETAL: No deformity Neck: Supple Neuro: Normal speech Psych/Mental Status: Mental status NL Assessment Assessment FINAL IMPRESSION: 1. Enterocutaneous fistula. 2. Drainage from the umbilicus with surrounding maceration, erythema of the abdominal wall. 3. History of abdominal surgery for hernia with? mesh, 3 years ago. 4. History of cerebrovascular accident and subdural hematoma in the past. 5. Chronic obstructive pulmonary disease, smoker. PLAN: NPO. TPN, s/p picc line placed Surgery next week. iv antibiotics Zosyn. Problems: Comment Review of Relevant I have reviewed the following items ranulfo (where applicable) has been applied. Labs Laboratory Tests Test 08/05/16 11:30 08/05/16 11:31 08/05/16 12:10 08/05/16 16:15 Sodium Level 144 mmol/L (136-145) Potassium Level 4.2 mmol/L (3.5-5.1) Chloride Level 108 mmol/L (98-107) Carbon Dioxide Level 25 mmol/L (21-32) Anion Gap 11 (6-14) Blood Urea Nitrogen 12 mg/dL (7-20) Creatinine 0.8 mg/dL (0.6-1.0) Estimated GFR (Cockcroft-Gault) 72.2 Glucose Level 109 mg/dL (70-99) Calcium Level 9.1 mg/dL (8.5-10.1) Phosphorus Level 3.8 mg/dL (2.6-4.7) Magnesium Level 2.5 mg/dL (1.8-2.4) Glucose (Fingerstick) 122 mg/dL (70-99) 107 mg/dL (70-99) Prothrombin Time 13.4 SEC (11.7-14.0) Prothromb Time International Ratio 1.1 (0.8-1.1) Test 08/05/16 20:43 08/06/16 06:35 08/06/16 07:39 Glucose (Fingerstick) 106 mg/dL (70-99) 143 mg/dL (70-99) Sodium Level 143 mmol/L (136-145) Potassium Level 4.1 mmol/L (3.5-5.1) Chloride Level 109 mmol/L (98-107) Carbon Dioxide Level 26 mmol/L (21-32) Anion Gap 8 (6-14) Blood Urea Nitrogen 12 mg/dL (7-20) Creatinine 0.8 mg/dL (0.6-1.0) Estimated GFR (Cockcroft-Gault) 72.2 Glucose Level 126 mg/dL (70-99) Calcium Level 8.8 mg/dL (8.5-10.1) Phosphorus Level 3.3 mg/dL (2.6-4.7) Magnesium Level 2.3 mg/dL (1.8-2.4) Microbiology 08/02/16 Gram Stain - Final, Complete Medications Current Medications Brimonidine Tartrate (Alphagan) 1 drop DAILY OD Last administered on 08/06/16 08:27; Start 08/06/16 at 09:00 Fluconazole/ Sodium Chloride 100 ml @ 100 mls/hr Q24H IV Last administered on 08/05/16 18:30; Start 08/05/16 at 17:00 Heparin Sodium/ Sodium Chloride 500 ml @ As Directed STK-MED ONCE .ROUTE ; Start 08/05/16 at 13:02; Stop 08/05/16 at 13:03; Status DC Heparin Sodium/ Sodium Chloride 1,000 unit 1X ONCE IART Last administered on 13:31; Start 08/05/16 at 13:30; Stop 08/05/16 at 13:31; Status DC Hydralazine HCl (Apresoline) 10 mg PRN Q4HRS PRN IVP ELEVATED BP, SEE COMMENTS ; Start 08/05/16 at 18:15 Info 1 each PRN DAILY PRN MC SEE COMMENTS Last administered on 08/05/16 13:16 ; Start 08/05/16 at 11:15 Lidocaine/Sodium Bicarbonate (Buffered Lidocaine 1%) 20 ml 1X ONCE IJ Last administered on 08/05/16 13:31; Start 08/05/16 at 13:30; Stop 08/05/16 at 13:31 ; Status DC Lidocaine/Sodium Bicarbonate (Buffered Lidocaine 1%) 20 ml STK-MED ONCE IJ ; Start 08/05/16 at 13:02; Stop 08/05/16 at 13:03; Status DC Non-Formulary Medication 1 ea BID OS Last administered on 08/06/16 08:25; Start 08/06/16 at 09:00 Non-Formulary Medication 1 ea DAILY OD Last administered on 08/06/16 08:28; Start 08/06/16 at 09:00 Pantoprazole Sodium (Protonix Vial) 40 mg DAILYAC IVP Last administered on 08/06 06:20; Start 08/06/16 at 07:30 Sodium Chloride 50 meq/Potassium Chloride 50 meq/ Potassium Phosphate 13.6 mmol/ Magnesium Sulfate 5 meq/ Calcium Gluconate 10 meq/ Multivitamins 10 ml/Chromium / Copper/Manganese/ Seleni/Zn 1 ml/ Total Parenteral Nutrition/Amino Acids/ Dextrose/ Fat Emulsion Intravenous 1,512 ml @ 63 mls/hr TPN CONT IV Last administered on 08/05/16 22:12; Start 08/05/16 at 22:00; Stop 08/06/16 at 21:59 Vitals/I & O Vital Sign - Last 24 Hours 08/05/16 08/05/16 08/05/16 08/05/16 10:59 11:00 11:35 12:30 Temp 97.9 97.9 Pulse 79 Resp 22 B/P (MAP) 162/82 (108) Pulse Ox 97 92 O2 Delivery Room Air Room Air Room Air Room Air 08/05/16 08/05/16 08/05/16 08/05/16 15:00 19:10 20:29 20:42 Temp 98.2 98.1 98.2 98.1 Pulse 83 87 Resp 20 18 B/P (MAP) 167/76 (106) 162/84 (110) Pulse Ox 94 95 93 O2 Delivery Room Air Room Air Room Air Room Air 08/05/16 08/06/16 08/06/16 08/06/16 22:51 03:24 07:00 07:08 Temp 97.6 97.6 Pulse 94 90 89 Resp 18 18 20 B/P (MAP) 168/81 (110) 168/96 (120) 154/48 (83) Pulse Ox 93 100 90 96 O2 Delivery Room Air Room Air Room Air Room Air 08/06/16 08:25 O2 Delivery Room Air Intake and Output 08/05/16 08/05/16 08/06/16 15:00 23:00 07:00 Intake Total 0 ml Balance 0 ml CHRISTOPH LE MD August 06, 2016 10:23
[2016-08-06] MEDS: TPN PER PHARMACY MC PRN (10:58)
[2016-08-06 11:00] VITALS: BP 153/82
--- NOTE | 2016-08-06 12:51 | PDOC ---
SURGICAL PROGRESS NOTE Subjective some pain ambulating to BR no emesis Vital Signs Vital Signs Date Time Temp Pulse Resp B/P (MAP) Pulse Ox O2 Delivery O2 Flow Rate FiO2 08/06/16 11:11 Room Air 08/06/16 11:00 98.0 82 20 153/82 (105) 93 98.0 I&O Intake and Output 08/06/16 06:59 Intake Total 0 ml Balance 0 ml Intake Oral 0 ml # Voids 1 # Bowel Movements 1 General: Alert, Oriented X3, Cooperative, No acute distress Abdomen: Soft, Other (dressing dry, wound draining) Labs Laboratory Tests Test 08/04/16 16:41 08/04/16 20:39 08/05/16 07:32 08/05/16 11:30 Glucose (Fingerstick) 83 mg/dL (70-99) 85 mg/dL (70-99) 100 mg/dL (70-99) Sodium Level 144 mmol/L (136-145) Potassium Level 4.2 mmol/L (3.5-5.1) Chloride Level 108 mmol/L (98-107) Carbon Dioxide Level 25 mmol/L (21-32) Anion Gap 11 (6-14) Blood Urea Nitrogen 12 mg/dL (7-20) Creatinine 0.8 mg/dL (0.6-1.0) Estimated GFR (Cockcroft-Gault) 72.2 Glucose Level 109 mg/dL (70-99) Calcium Level 9.1 mg/dL (8.5-10.1) Phosphorus Level 3.8 mg/dL (2.6-4.7) Magnesium Level 2.5 mg/dL (1.8-2.4) Test 08/05/16 11:31 08/05/16 12:10 08/05/16 16:15 08/05/16 20:43 Glucose (Fingerstick) 122 mg/dL (70-99) 107 mg/dL (70-99) 106 mg/dL (70-99) Prothrombin Time 13.4 SEC (11.7-14.0) Prothromb Time International Ratio 1.1 (0.8-1.1) Test 08/06/16 06:35 08/06/16 07:39 08/06/16 11:04 Sodium Level 143 mmol/L (136-145) Potassium Level 4.1 mmol/L (3.5-5.1) Chloride Level 109 mmol/L (98-107) Carbon Dioxide Level 26 mmol/L (21-32) Anion Gap 8 (6-14) Blood Urea Nitrogen 12 mg/dL (7-20) Creatinine 0.8 mg/dL (0.6-1.0) Estimated GFR (Cockcroft-Gault) 72.2 Glucose Level 126 mg/dL (70-99) Calcium Level 8.8 mg/dL (8.5-10.1) Phosphorus Level 3.3 mg/dL (2.6-4.7) Magnesium Level 2.3 mg/dL (1.8-2.4) Glucose (Fingerstick) 143 mg/dL (70-99) 145 mg/dL (70-99) Laboratory Tests Test 08/05/16 16:15 08/05/16 20:43 08/06/16 06:35 08/06/16 07:39 Glucose (Fingerstick) 107 mg/dL (70-99) 106 mg/dL (70-99) 143 mg/dL (70-99) Sodium Level 143 mmol/L (136-145) Potassium Level 4.1 mmol/L (3.5-5.1) Chloride Level 109 mmol/L (98-107) Carbon Dioxide Level 26 mmol/L (21-32) Anion Gap 8 (6-14) Blood Urea Nitrogen 12 mg/dL (7-20) Creatinine 0.8 mg/dL (0.6-1.0) Estimated GFR (Cockcroft-Gault) 72.2 Glucose Level 126 mg/dL (70-99) Calcium Level 8.8 mg/dL (8.5-10.1) Phosphorus Level 3.3 mg/dL (2.6-4.7) Magnesium Level 2.3 mg/dL (1.8-2.4) Test 08/06/16 11:04 Glucose (Fingerstick) 145 mg/dL (70-99) Problem List EC fistula bowel rest, tpn dr palomo returns tuesday Problems: 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
[2016-08-06 15:00] VITALS: BP 174/84
[2016-08-06] MEDS: FLUCONAZOLE 200MG/100ML PREMIX 100 ML IV SCH (16:56)
[2016-08-06] MEDS: fentaNYL PF VIAL 100 MCG/2 ML VIAL IV PRN (18:08)
[2016-08-06 19:15] VITALS: BP 162/77
[2016-08-06] MEDS ORDERED: TOTAL PARENTERAL NUTRITION IV SCH ×10 (22:00)
[2016-08-06] MEDS ORDERED: AMINO ACIDS IV SCH ×10 (22:00)
[2016-08-06] MEDS ORDERED: [UNRECOGNIZED DRUG - OTHER] IV SCH ×10 (22:00)
[2016-08-06] MEDS ORDERED: DEXTROSE 70% IV SCH ×10 (22:00)
[2016-08-06 23:12] VITALS: BP 116/63
[2016-08-07] MEDS: PIPERACILLIN/TAZOBACTAM 3.375 GM in IV NORMAL SALINE 50ML 50 ML IV SCH ×4 (00:34→18:18)
[2016-08-07] MEDS: fentaNYL PF VIAL 100 MCG/2 ML VIAL IV PRN (00:39)
[2016-08-07 03:15] VITALS: BP 158/74
[2016-08-07 06:53] LABS: CALCIUM 9.2 mg/dL (8.5-10.1); CREATININE 0.8 mg/dL (0.6-1.0); GFR 72.2; MAGNESIUM 2.2 mg/dL (1.8-2.4); POTASSIUM 4.1 mmol/L (3.5-5.1)
[2016-08-07 07:00] VITALS: BP 171/73
[2016-08-07] MEDS: ALBUTEROL SULFATE 2.5 MG/3 ML NEBU. NEB SCH ×4 (07:37→19:49)
[2016-08-07] MEDS: INSULIN ASPART 300 UNITS/3 ML INSULN.PEN SQ SCH ×3 (08:00→16:48)
[2016-08-07] MEDS: PANTOPRAZOLE IV PUSH 40 MG VIAL. IVP SCH (08:06)
[2016-08-07] MEDS: BRIMONIDINE 0.2% OPHTH SOLUTION 5ML BOTTLE. OD SCH (08:12)
[2016-08-07] MEDS: LUMIGAN EYE DROPS OD SCH (08:12)
[2016-08-07] MEDS: GLIMEPIRIDE 2 MG TABLET. PO SCH (08:13)
[2016-08-07] MEDS: BENZONATATE 100 MG CAPSULE. PO SCH ×3 (08:13→21:00)
[2016-08-07] MEDS: AMITRIPTYLINE HCL 10 MG TABLET. PO SCH (08:13)
[2016-08-07] MEDS: predniSONE 20 MG TABLET PO SCH (08:13)
[2016-08-07] MEDS: COMBIGAN EYE DROPS OS SCH ×2 (08:13→21:04)
--- NOTE | 2016-08-07 08:21 | PDOC ---
SURGICAL PROGRESS NOTE Subjective Doing fine, no pain Vital Signs Vital Signs Date Time Temp Pulse Resp B/P (MAP) Pulse Ox O2 Delivery O2 Flow Rate FiO2 08/07/16 07:39 93 Room Air 08/07/16 07:00 97.9 99 24 171/73 (105) 97.9 PATIENT HAS A BRAN: No General: Alert, Oriented X3, Cooperative, No acute distress Abdomen: Normal bowel sounds, Soft, Other (wound dressed with minimal drainage) Labs Laboratory Tests Test 08/05/16 11:30 08/05/16 11:31 08/05/16 12:10 08/05/16 16:15 Sodium Level 144 mmol/L (136-145) Potassium Level 4.2 mmol/L (3.5-5.1) Chloride Level 108 mmol/L (98-107) Carbon Dioxide Level 25 mmol/L (21-32) Anion Gap 11 (6-14) Blood Urea Nitrogen 12 mg/dL (7-20) Creatinine 0.8 mg/dL (0.6-1.0) Estimated GFR (Cockcroft-Gault) 72.2 Glucose Level 109 mg/dL (70-99) Calcium Level 9.1 mg/dL (8.5-10.1) Phosphorus Level 3.8 mg/dL (2.6-4.7) Magnesium Level 2.5 mg/dL (1.8-2.4) Glucose (Fingerstick) 122 mg/dL (70-99) 107 mg/dL (70-99) Prothrombin Time 13.4 SEC (11.7-14.0) Prothromb Time International Ratio 1.1 (0.8-1.1) Test 08/05/16 20:43 08/06/16 06:35 08/06/16 07:39 08/06/16 11:04 Glucose (Fingerstick) 106 mg/dL (70-99) 143 mg/dL (70-99) 145 mg/dL (70-99) Sodium Level 143 mmol/L (136-145) Potassium Level 4.1 mmol/L (3.5-5.1) Chloride Level 109 mmol/L (98-107) Carbon Dioxide Level 26 mmol/L (21-32) Anion Gap 8 (6-14) Blood Urea Nitrogen 12 mg/dL (7-20) Creatinine 0.8 mg/dL (0.6-1.0) Estimated GFR (Cockcroft-Gault) 72.2 Glucose Level 126 mg/dL (70-99) Calcium Level 8.8 mg/dL (8.5-10.1) Phosphorus Level 3.3 mg/dL (2.6-4.7) Magnesium Level 2.3 mg/dL (1.8-2.4) Test 08/06/16 16:03 08/06/16 21:16 08/07/16 06:15 08/07/16 07:07 Glucose (Fingerstick) 144 mg/dL (70-99) 125 mg/dL (70-99) 129 mg/dL (70-99) Sodium Level 143 mmol/L (136-145) Potassium Level 4.1 mmol/L (3.5-5.1) Chloride Level 108 mmol/L (98-107) Carbon Dioxide Level 24 mmol/L (21-32) Anion Gap 11 (6-14) Blood Urea Nitrogen 14 mg/dL (7-20) Creatinine 0.8 mg/dL (0.6-1.0) Estimated GFR (Cockcroft-Gault) 72.2 Glucose Level 129 mg/dL (70-99) Calcium Level 9.2 mg/dL (8.5-10.1) Phosphorus Level 4.0 mg/dL (2.6-4.7) Magnesium Level 2.2 mg/dL (1.8-2.4) Laboratory Tests Test 08/06/16 11:04 08/06/16 16:03 08/06/16 21:16 08/07/16 06:15 Glucose (Fingerstick) 145 mg/dL (70-99) 144 mg/dL (70-99) 125 mg/dL (70-99) Sodium Level 143 mmol/L (136-145) Potassium Level 4.1 mmol/L (3.5-5.1) Chloride Level 108 mmol/L (98-107) Carbon Dioxide Level 24 mmol/L (21-32) Anion Gap 11 (6-14) Blood Urea Nitrogen 14 mg/dL (7-20) Creatinine 0.8 mg/dL (0.6-1.0) Estimated GFR (Cockcroft-Gault) 72.2 Glucose Level 129 mg/dL (70-99) Calcium Level 9.2 mg/dL (8.5-10.1) Phosphorus Level 4.0 mg/dL (2.6-4.7) Magnesium Level 2.2 mg/dL (1.8-2.4) Test 08/07/16 07:07 Glucose (Fingerstick) 129 mg/dL (70-99) Assessment/Plan No acute changes 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
--- NOTE | 2016-08-07 10:24 | PDOC ---
Infectious Disease Note Subjective Subjective Feeling alright, little sore NPO, on TPN ROS ROS GEN: Denies fevers, chills, sweats HEENT: Blind, left eye. Denies sore throat CV: Denies chest pain RESP: Denies shortness of air, cough GI: Denies n/v/d NEURO: Denies confusion, dizziness MSK: Denies weakness, joint pain/swelling Vital Sign Vital Signs Vital Signs Date Time Temp Pulse Resp B/P (MAP) Pulse Ox O2 Delivery O2 Flow Rate FiO2 08/07/16 08:00 Room Air 08/07/16 07:39 93 08/07/16 07:00 97.9 99 24 171/73 (105) 97.9 Physical Exam PHYSICAL EXAM GENERAL: Sitting side of bed, NAD , Did ambulate in room HEENT: Right eye reactive, (left eye blind). Dentures NECK: Supple, no JVD, no LN LUNGS: Clear HEART: S1S2, no gallop, no murmur ABD: Soft, NT, BS present. Small opening- bilious drainage, + skin excoriation EXT: No edema, no cyanosis LOAN ASSOCIATE: Alert, oriented x 3, no focal neurologic deficit SKIN: No rash RUE-PICC. (08/05). clean Labs Lab Laboratory Tests Test 08/06/16 11:04 08/06/16 16:03 08/06/16 21:16 08/07/16 06:15 Glucose (Fingerstick) 145 mg/dL (70-99) 144 mg/dL (70-99) 125 mg/dL (70-99) Sodium Level 143 mmol/L (136-145) Potassium Level 4.1 mmol/L (3.5-5.1) Chloride Level 108 mmol/L (98-107) Carbon Dioxide Level 24 mmol/L (21-32) Anion Gap 11 (6-14) Blood Urea Nitrogen 14 mg/dL (7-20) Creatinine 0.8 mg/dL (0.6-1.0) Estimated GFR (Cockcroft-Gault) 72.2 Glucose Level 129 mg/dL (70-99) Calcium Level 9.2 mg/dL (8.5-10.1) Phosphorus Level 4.0 mg/dL (2.6-4.7) Magnesium Level 2.2 mg/dL (1.8-2.4) Test 08/07/16 07:07 Glucose (Fingerstick) 129 mg/dL (70-99) Micro ANAEROBIC-AEROBIC CULTURE Final Final report ANAEROBIC RES 1 Final Comment No anaerobic growth in 72 hours. AEROBIC RES 1 Final Proteus mirabilis AEROBIC RES 2 Final Enterococcus faecalis AEROBIC RES 3 Final Enterococcus faecalis Antibiotic RSLT#1 RSLT#2 RSLT#3 Amoxicillin/Clavulanic Acid S Ampicillin S Cefepime S Ceftriaxone S Cefuroxime S Ciprofloxacin S Ertapenem S Gentamicin S Levofloxacin S Penicillin S S Piperacillin S Tetracycline R Tobramycin S Trimethoprim/Sulfa S Vancomycin S S Objective Assessment EC fistula. Proteus and E. faecalis x 2 ampS, yeast Cellulitis/irritation by bile leak. Hernia surgery 2 yrs ago with mesh DM Subdural hematoma Plan Plan of Care Zosyn and Radha NPO Await surgery, Tuesday CBC in am D/w Attending Co-Sign Attending Co-Sign The patient was seen and interviewed as well as examined at the bedside. The chart was reviewed. The case was discussed. Agree with the plan of care. CAMERON VILA APRN August 07, 2016 10:24 MARII PRINCE MD August 07, 2016 14:12
[2016-08-07 11:00] VITALS: BP 169/71
--- NOTE | 2016-08-07 12:11 | PDOC ---
PROGRESS NOTES Subjective Subjective no new problems Objective Objective Vital Signs Date Time Temp Pulse Resp B/P (MAP) Pulse Ox O2 Delivery O2 Flow Rate FiO2 08/07/16 11:08 Room Air 08/07/16 11:00 98.0 75 20 169/71 (103) 93 98.0 Physical Exam Abdomen: Normal bowel sounds, Soft, Other (wound dressed with minimal drainage) Heart: Regular rate, Normal S1, Normal S2 Extremities: No clubbing General: Alert, Oriented X3, Cooperative, No acute distress HEENT: Atraumatic Lungs: Clear to auscultation MUSCULOSKELETAL: No deformity Neck: Supple Neuro: Normal speech Psych/Mental Status: Mental status NL Assessment Assessment FINAL IMPRESSION: 1. Enterocutaneous fistula. 2. Drainage from the umbilicus with surrounding maceration, erythema of the abdominal wall. 3. History of abdominal surgery for hernia with? mesh, 3 years ago. 4. History of cerebrovascular accident and subdural hematoma in the past. 5. Chronic obstructive pulmonary disease, smoker. PLAN: monitor labs on TPN. NPO for now. s/p picc line placed Surgery next week. iv antibiotics Zosyn. Problems: Comment Review of Relevant I have reviewed the following items ranulfo (where applicable) has been applied. Labs Laboratory Tests Test 08/06/16 16:03 08/06/16 21:16 08/07/16 06:15 08/07/16 07:07 Glucose (Fingerstick) 144 mg/dL (70-99) 125 mg/dL (70-99) 129 mg/dL (70-99) Sodium Level 143 mmol/L (136-145) Potassium Level 4.1 mmol/L (3.5-5.1) Chloride Level 108 mmol/L (98-107) Carbon Dioxide Level 24 mmol/L (21-32) Anion Gap 11 (6-14) Blood Urea Nitrogen 14 mg/dL (7-20) Creatinine 0.8 mg/dL (0.6-1.0) Estimated GFR (Cockcroft-Gault) 72.2 Glucose Level 129 mg/dL (70-99) Calcium Level 9.2 mg/dL (8.5-10.1) Phosphorus Level 4.0 mg/dL (2.6-4.7) Magnesium Level 2.2 mg/dL (1.8-2.4) Test 08/07/16 11:09 Glucose (Fingerstick) 157 mg/dL (70-99) Microbiology 08/02/16 Gram Stain - Final, Complete Medications Current Medications Cefoxitin Sodium 100 ml @ 200 mls/hr 1X ONCE IV ; Start 08/10/16 at 06:00; Stop 08/10/16 at 06:29 Sodium Chloride 50 meq/Potassium Chloride 50 meq/ Potassium Phosphate 13.6 mmol/ Magnesium Sulfate 5 meq/ Calcium Gluconate 10 meq/ Multivitamins 10 ml/Chromium / Copper/Manganese/ Seleni/Zn 1 ml/ Total Parenteral Nutrition/Amino Acids/ Dextrose/ Fat Emulsion Intravenous 1,512 ml @ 63 mls/hr TPN CONT IV Last administered on 08/06/16t 20:49; Start 08/06/16 at 22:00; Stop 08/07/16 at 21:59 Vitals/I & O Vital Sign - Last 24 Hours 08/06/16 08/06/16 08/06/16 08/06/16 14:55 15:00 18:08 19:15 Temp 98.1 97.8 98.1 97.8 Pulse 85 67 Resp 26 18 B/P (MAP) 174/84 (114) 162/77 (105) Pulse Ox 94 95 95 O2 Delivery Room Air Room Air Room Air Room Air 08/06/16 08/06/16 08/06/16 08/07/16 19:50 20:59 23:12 00:39 Temp 98.0 98.0 Pulse 68 Resp 18 B/P (MAP) 116/63 (80) Pulse Ox 92 92 O2 Delivery Room Air Room Air Room Air Room Air 08/07/16 08/07/16 08/07/16 08/07/16 01:17 03:15 07:00 07:39 Temp 98.1 97.9 98.1 97.9 Pulse 92 99 Resp 18 24 B/P (MAP) 158/74 (102) 171/73 (105) Pulse Ox 92 93 94 93 O2 Delivery Room Air Room Air Room Air Room Air 08/07/16 08/07/16 08/07/16 08:00 11:00 11:08 Temp 98.0 98.0 Pulse 75 Resp 20 B/P (MAP) 169/71 (103) Pulse Ox 93 O2 Delivery Room Air Room Air Room Air CHRISTOPH LE MD August 07, 2016 12:11
[2016-08-07] MEDS: TPN PER PHARMACY MC PRN (12:33)
[2016-08-07 15:00] VITALS: BP 170/68
[2016-08-07] MEDS: FLUCONAZOLE 200MG/100ML PREMIX 100 ML IV SCH (17:13)
[2016-08-07 19:05] VITALS: BP 164/80
[2016-08-07] MEDS ORDERED: AMINO ACIDS IV SCH ×10 (22:00)
[2016-08-07] MEDS ORDERED: DEXTROSE 70% IV SCH ×10 (22:00)
[2016-08-07] MEDS ORDERED: [UNRECOGNIZED DRUG - OTHER] IV SCH ×10 (22:00)
[2016-08-07] MEDS ORDERED: TOTAL PARENTERAL NUTRITION IV SCH ×10 (22:00)
[2016-08-07 23:04] VITALS: BP 168/84
[2016-08-08] MEDS: PIPERACILLIN/TAZOBACTAM 3.375 GM in IV NORMAL SALINE 50ML 50 ML IV SCH ×4 (00:13→18:15)
[2016-08-08 03:29] VITALS: BP 122/53
[2016-08-08 07:00] VITALS: BP 127/79
[2016-08-08 07:09] LABS: BASO # 0.1 x10^3/uL (0.0-0.2); BASO % 1 % (0-3); EOS % 3 % (0-3); HEMATOCRIT 44.4 % (36.0-47.0); HEMOGLOBIN 14.6 g/dL (12.0-15.5); LYMPH # 1.3 x10^3/uL (1.0-4.8); LYMPH % 16 % (24-48); MEAN CORPUSCULAR HEMOGLOBIN 29 pg (25-35); MEAN CORPUSCULAR HGB CONC 33 g/dL (31-37); MEAN CORPUSCULAR VOLUME 88 fL (79-100); MONO % 10 % (0-9); NEUT % 70 % (31-73); PLATELET COUNT 282 x10^3/uL (140-400); RED BLOOD COUNT 5.03 x10^6/uL (3.50-5.40); WHITE BLOOD COUNT 8.2 x10^3/uL (4.0-11.0)
[2016-08-08 07:17] LABS: CREATININE 0.8 mg/dL (0.6-1.0); GFR 72.2; MAGNESIUM 2.1 mg/dL (1.8-2.4); PHOSPHORUS 3.8 mg/dL (2.6-4.7); POTASSIUM 4.1 mmol/L (3.5-5.1)
[2016-08-08] MEDS: ALBUTEROL SULFATE 2.5 MG/3 ML NEBU. NEB SCH ×4 (07:20→19:17)
[2016-08-08] MEDS: PANTOPRAZOLE IV PUSH 40 MG VIAL. IVP SCH (07:37)
[2016-08-08] MEDS: COMBIGAN EYE DROPS OS SCH ×2 (07:38→21:25)
[2016-08-08] MEDS: BRIMONIDINE 0.2% OPHTH SOLUTION 5ML BOTTLE. OD SCH (07:38)
[2016-08-08] MEDS: LUMIGAN EYE DROPS OD SCH (07:38)
[2016-08-08] MEDS: INSULIN ASPART 300 UNITS/3 ML INSULN.PEN SQ SCH ×3 (07:44→17:00)
[2016-08-08] MEDS: GLIMEPIRIDE 2 MG TABLET. PO SCH (07:45)
[2016-08-08] MEDS: AMITRIPTYLINE HCL 10 MG TABLET. PO SCH (07:45)
[2016-08-08] MEDS: predniSONE 20 MG TABLET PO SCH (07:45)
[2016-08-08] MEDS: BENZONATATE 100 MG CAPSULE. PO SCH ×3 (07:45→21:00)
[2016-08-08] MEDS: fentaNYL PF VIAL 100 MCG/2 ML VIAL IV PRN (07:59)
[2016-08-08] MEDS ORDERED: ONDANSETRON PF 4 MG/2 ML VIAL. IV PRN ×2 (10:45→11:00)
--- NOTE | 2016-08-08 10:52 | PDOC ---
PROGRESS NOTES Subjective Subjective sleepy today Objective Objective Vital Signs Date Time Temp Pulse Resp B/P (MAP) Pulse Ox O2 Delivery O2 Flow Rate FiO2 08/08/16 08:29 16 91 Room Air 08/08/16 07:00 97.5 92 127/79 (95) 97.5 Intake and Output 08/08/16 07:00 Intake Total 100 ml Balance 100 ml Intake Oral 100 ml # Voids 2 Physical Exam Abdomen: Normal bowel sounds, Soft, Other (wound dressed with minimal drainage) Heart: Regular rate, Normal S1, Normal S2 Extremities: No clubbing General: Alert, Oriented X3, Cooperative, No acute distress HEENT: Atraumatic Lungs: Clear to auscultation MUSCULOSKELETAL: No deformity Neck: Supple Neuro: Normal speech Psych/Mental Status: Mental status NL Assessment Assessment FINAL IMPRESSION: 1. Enterocutaneous fistula. 2. Drainage from the umbilicus with surrounding maceration, erythema of the abdominal wall. 3. History of abdominal surgery for hernia with? mesh, 3 years ago. 4. History of cerebrovascular accident and subdural hematoma in the past. 5. Chronic obstructive pulmonary disease, smoker. PLAN:spoke with monitor labs on TPN.labs good. NPO for now. s/p picc line placed Surgery next week. iv antibiotics Zosyn. Problems: Comment Review of Relevant I have reviewed the following items ranulfo (where applicable) has been applied. Labs Laboratory Tests Test 08/07/16 11:09 08/07/16 16:17 08/07/16 20:31 08/08/16 06:30 Glucose (Fingerstick) 157 mg/dL (70-99) 133 mg/dL (70-99) 136 mg/dL (70-99) White Blood Count 8.2 x10^3/uL (4.0-11.0) Red Blood Count 5.03 x10^6/uL (3.50-5.40) Hemoglobin 14.6 g/dL (12.0-15.5) Hematocrit 44.4 % (36.0-47.0) Mean Corpuscular Volume 88 fL (79-100) Mean Corpuscular Hemoglobin 29 pg (25-35) Mean Corpuscular Hemoglobin Concent 33 g/dL (31-37) Red Cell Distribution Width 13.0 % (11.5-14.5) Platelet Count 282 x10^3/uL (140-400) Neutrophils (%) (Auto) 70 % (31-73) Lymphocytes (%) (Auto) 16 % (24-48) Monocytes (%) (Auto) 10 % (0-9) Eosinophils (%) (Auto) 3 % (0-3) Basophils (%) (Auto) 1 % (0-3) Neutrophils # (Auto) 5.8 x10^3uL (1.8-7.7) Lymphocytes # (Auto) 1.3 x10^3/uL (1.0-4.8) Monocytes # (Auto) 0.8 x10^3/uL (0.0-1.1) Eosinophils # (Auto) 0.3 x10^3/uL (0.0-0.7) Basophils # (Auto) 0.1 x10^3/uL (0.0-0.2) Sodium Level 141 mmol/L (136-145) Potassium Level 4.1 mmol/L (3.5-5.1) Chloride Level 107 mmol/L (98-107) Carbon Dioxide Level 24 mmol/L (21-32) Anion Gap 10 (6-14) Blood Urea Nitrogen 14 mg/dL (7-20) Creatinine 0.8 mg/dL (0.6-1.0) Estimated GFR (Cockcroft-Gault) 72.2 Glucose Level 135 mg/dL (70-99) Calcium Level 9.0 mg/dL (8.5-10.1) Phosphorus Level 3.8 mg/dL (2.6-4.7) Magnesium Level 2.1 mg/dL (1.8-2.4) Test 08/08/16 07:47 Glucose (Fingerstick) 164 mg/dL (70-99) Microbiology 08/02/16 Gram Stain - Final, Complete Medications Current Medications Cefoxitin Sodium 100 ml @ 200 mls/hr 1X ONCE IV ; Start 08/10/16 at 06:00; Stop 08/10/16 at 06:29 Ondansetron HCl (Zofran) 4 mg PRN Q6HRS PRN IV NAUSEA/VOMITING; Start 08/08/16 at 10:45 Sodium Chloride 50 meq/Potassium Chloride 50 meq/ Potassium Phosphate 13.6 mmol/ Magnesium Sulfate 5 meq/ Calcium Gluconate 10 meq/ Multivitamins 10 ml/Chromium / Copper/Manganese/ Seleni/Zn 1 ml/ Total Parenteral Nutrition/Amino Acids/ Dextrose/ Fat Emulsion Intravenous 1,512 ml @ 63 mls/hr TPN CONT IV Last administered on 08/07/16t 21:02; Start 08/07/16 at 22:00; Stop 08/08/16 at 21:59 Vitals/I & O Vital Sign - Last 24 Hours 08/07/16 08/07/16 08/07/16 08/07/16 11:00 11:08 15:00 15:31 Temp 98.0 97.7 98.0 97.7 Pulse 75 82 Resp 20 20 B/P (MAP) 169/71 (103) 170/68 (102) Pulse Ox 93 92 O2 Delivery Room Air Room Air Room Air Room Air 08/07/16 08/07/16 08/07/16 08/07/16 19:05 19:50 20:00 23:04 Pulse 90 91 Resp 18 20 B/P (MAP) 164/80 (108) 168/84 (112) Pulse Ox 92 100 O2 Delivery Room Air Room Air Room Air Room Air 08/08/16 08/08/16 08/08/16 08/08/16 03:29 07:00 07:22 07:59 Temp 97.7 97.5 97.7 97.5 Pulse 86 92 Resp 20 16 16 B/P (MAP) 122/53 (76) 127/79 (95) Pulse Ox 93 91 91 91 O2 Delivery Room Air Room Air Room Air Room Air 08/08/16 08/08/16 08:00 08:29 Resp 16 Pulse Ox 91 O2 Delivery Room Air Room Air Intake and Output 08/07/16 08/07/16 08/08/16 15:00 23:00 07:00 Intake Total 0 ml 100 ml Balance 0 ml 100 ml CHRISTOPH LE MD August 08, 2016 10:52
[2016-08-08 11:03] VITALS: BP 138/51
--- NOTE | 2016-08-08 11:35 | PDOC ---
SURGICAL PROGRESS NOTE Subjective No acute changes Vital Signs Vital Signs Date Time Temp Pulse Resp B/P (MAP) Pulse Ox O2 Delivery O2 Flow Rate FiO2 08/08/16 11:15 Room Air 08/08/16 11:03 98.0 78 16 138/51 (80) 96 98.0 I&O Intake and Output 08/08/16 07:00 Intake Total 100 ml Balance 100 ml Intake Oral 100 ml # Voids 2 PATIENT HAS A BRAN: No General: Alert, Oriented X3, Cooperative, No acute distress Abdomen: Normal bowel sounds, Soft, Other (Abdominal wound dressed) Labs Laboratory Tests Test 08/06/16 16:03 08/06/16 21:16 08/07/16 06:15 08/07/16 07:07 Glucose (Fingerstick) 144 mg/dL (70-99) 125 mg/dL (70-99) 129 mg/dL (70-99) Sodium Level 143 mmol/L (136-145) Potassium Level 4.1 mmol/L (3.5-5.1) Chloride Level 108 mmol/L (98-107) Carbon Dioxide Level 24 mmol/L (21-32) Anion Gap 11 (6-14) Blood Urea Nitrogen 14 mg/dL (7-20) Creatinine 0.8 mg/dL (0.6-1.0) Estimated GFR (Cockcroft-Gault) 72.2 Glucose Level 129 mg/dL (70-99) Calcium Level 9.2 mg/dL (8.5-10.1) Phosphorus Level 4.0 mg/dL (2.6-4.7) Magnesium Level 2.2 mg/dL (1.8-2.4) Test 08/07/16 11:09 08/07/16 16:17 08/07/16 20:31 08/08/16 06:30 Glucose (Fingerstick) 157 mg/dL (70-99) 133 mg/dL (70-99) 136 mg/dL (70-99) White Blood Count 8.2 x10^3/uL (4.0-11.0) Red Blood Count 5.03 x10^6/uL (3.50-5.40) Hemoglobin 14.6 g/dL (12.0-15.5) Hematocrit 44.4 % (36.0-47.0) Mean Corpuscular Volume 88 fL (79-100) Mean Corpuscular Hemoglobin 29 pg (25-35) Mean Corpuscular Hemoglobin Concent 33 g/dL (31-37) Red Cell Distribution Width 13.0 % (11.5-14.5) Platelet Count 282 x10^3/uL (140-400) Neutrophils (%) (Auto) 70 % (31-73) Lymphocytes (%) (Auto) 16 % (24-48) Monocytes (%) (Auto) 10 % (0-9) Eosinophils (%) (Auto) 3 % (0-3) Basophils (%) (Auto) 1 % (0-3) Neutrophils # (Auto) 5.8 x10^3uL (1.8-7.7) Lymphocytes # (Auto) 1.3 x10^3/uL (1.0-4.8) Monocytes # (Auto) 0.8 x10^3/uL (0.0-1.1) Eosinophils # (Auto) 0.3 x10^3/uL (0.0-0.7) Basophils # (Auto) 0.1 x10^3/uL (0.0-0.2) Sodium Level 141 mmol/L (136-145) Potassium Level 4.1 mmol/L (3.5-5.1) Chloride Level 107 mmol/L (98-107) Carbon Dioxide Level 24 mmol/L (21-32) Anion Gap 10 (6-14) Blood Urea Nitrogen 14 mg/dL (7-20) Creatinine 0.8 mg/dL (0.6-1.0) Estimated GFR (Cockcroft-Gault) 72.2 Glucose Level 135 mg/dL (70-99) Calcium Level 9.0 mg/dL (8.5-10.1) Phosphorus Level 3.8 mg/dL (2.6-4.7) Magnesium Level 2.1 mg/dL (1.8-2.4) Test 08/08/16 07:47 Glucose (Fingerstick) 164 mg/dL (70-99) Laboratory Tests Test 08/07/16 16:17 08/07/16 20:31 08/08/16 06:30 08/08/16 07:47 Glucose (Fingerstick) 133 mg/dL (70-99) 136 mg/dL (70-99) 164 mg/dL (70-99) White Blood Count 8.2 x10^3/uL (4.0-11.0) Red Blood Count 5.03 x10^6/uL (3.50-5.40) Hemoglobin 14.6 g/dL (12.0-15.5) Hematocrit 44.4 % (36.0-47.0) Mean Corpuscular Volume 88 fL (79-100) Mean Corpuscular Hemoglobin 29 pg (25-35) Mean Corpuscular Hemoglobin Concent 33 g/dL (31-37) Red Cell Distribution Width 13.0 % (11.5-14.5) Platelet Count 282 x10^3/uL (140-400) Neutrophils (%) (Auto) 70 % (31-73) Lymphocytes (%) (Auto) 16 % (24-48) Monocytes (%) (Auto) 10 % (0-9) Eosinophils (%) (Auto) 3 % (0-3) Basophils (%) (Auto) 1 % (0-3) Neutrophils # (Auto) 5.8 x10^3uL (1.8-7.7) Lymphocytes # (Auto) 1.3 x10^3/uL (1.0-4.8) Monocytes # (Auto) 0.8 x10^3/uL (0.0-1.1) Eosinophils # (Auto) 0.3 x10^3/uL (0.0-0.7) Basophils # (Auto) 0.1 x10^3/uL (0.0-0.2) Sodium Level 141 mmol/L (136-145) Potassium Level 4.1 mmol/L (3.5-5.1) Chloride Level 107 mmol/L (98-107) Carbon Dioxide Level 24 mmol/L (21-32) Anion Gap 10 (6-14) Blood Urea Nitrogen 14 mg/dL (7-20) Creatinine 0.8 mg/dL (0.6-1.0) Estimated GFR (Cockcroft-Gault) 72.2 Glucose Level 135 mg/dL (70-99) Calcium Level 9.0 mg/dL (8.5-10.1) Phosphorus Level 3.8 mg/dL (2.6-4.7) Magnesium Level 2.1 mg/dL (1.8-2.4) Assessment/Plan 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
[2016-08-08] MEDS: TPN PER PHARMACY MC PRN (14:59)
[2016-08-08 15:04] VITALS: BP 150/76
[2016-08-08] MEDS: FLUCONAZOLE 200MG/100ML PREMIX 100 ML IV SCH (17:11)
[2016-08-08 19:52] VITALS: BP 152/98
[2016-08-08] MEDS ORDERED: DEXTROSE 70% IV SCH ×10 (22:00)
[2016-08-08] MEDS ORDERED: AMINO ACIDS IV SCH ×10 (22:00)
[2016-08-08] MEDS ORDERED: [UNRECOGNIZED DRUG - OTHER] IV SCH ×10 (22:00)
[2016-08-08] MEDS ORDERED: TOTAL PARENTERAL NUTRITION IV SCH ×10 (22:00)
[2016-08-08 23:10] VITALS: BP 154/68
[2016-08-09] MEDS: fentaNYL PF VIAL 100 MCG/2 ML VIAL IV PRN (02:22)
[2016-08-09 03:05] VITALS: BP 138/69
[2016-08-09] MEDS: PANTOPRAZOLE IV PUSH 40 MG VIAL. IVP SCH (06:46)
[2016-08-09] MEDS: PIPERACILLIN/TAZOBACTAM 3.375 GM in IV NORMAL SALINE 50ML 50 ML IV SCH ×6 (06:47→23:35)
[2016-08-09] MEDS: ALBUTEROL SULFATE 2.5 MG/3 ML NEBU. NEB SCH ×4 (06:59→20:16)
[2016-08-09 07:00] VITALS: BP 150/73
[2016-08-09] MEDS ORDERED: MECLIZINE HCL 12.5 MG TABLET. PO PRN (07:30)
[2016-08-09] MEDS: INSULIN ASPART 300 UNITS/3 ML INSULN.PEN SQ SCH ×3 (08:00→16:18)
--- NOTE | 2016-08-09 08:26 | PDOC ---
SURGICAL PROGRESS NOTE Subjective No acute changes Vital Signs Vital Signs Date Time Temp Pulse Resp B/P (MAP) Pulse Ox O2 Delivery O2 Flow Rate FiO2 08/09/16 07:01 94 Room Air 08/09/16 07:00 98.1 88 20 150/73 (98) 98.1 I&O Intake and Output 08/09/16 07:00 Intake Total 0 ml Balance 0 ml Intake Oral 0 ml # Voids 7 Labs Laboratory Tests Test 08/07/16 11:09 08/07/16 16:17 08/07/16 20:31 08/08/16 06:30 Glucose (Fingerstick) 157 mg/dL (70-99) 133 mg/dL (70-99) 136 mg/dL (70-99) White Blood Count 8.2 x10^3/uL (4.0-11.0) Red Blood Count 5.03 x10^6/uL (3.50-5.40) Hemoglobin 14.6 g/dL (12.0-15.5) Hematocrit 44.4 % (36.0-47.0) Mean Corpuscular Volume 88 fL (79-100) Mean Corpuscular Hemoglobin 29 pg (25-35) Mean Corpuscular Hemoglobin Concent 33 g/dL (31-37) Red Cell Distribution Width 13.0 % (11.5-14.5) Platelet Count 282 x10^3/uL (140-400) Neutrophils (%) (Auto) 70 % (31-73) Lymphocytes (%) (Auto) 16 % (24-48) Monocytes (%) (Auto) 10 % (0-9) Eosinophils (%) (Auto) 3 % (0-3) Basophils (%) (Auto) 1 % (0-3) Neutrophils # (Auto) 5.8 x10^3uL (1.8-7.7) Lymphocytes # (Auto) 1.3 x10^3/uL (1.0-4.8) Monocytes # (Auto) 0.8 x10^3/uL (0.0-1.1) Eosinophils # (Auto) 0.3 x10^3/uL (0.0-0.7) Basophils # (Auto) 0.1 x10^3/uL (0.0-0.2) Sodium Level 141 mmol/L (136-145) Potassium Level 4.1 mmol/L (3.5-5.1) Chloride Level 107 mmol/L (98-107) Carbon Dioxide Level 24 mmol/L (21-32) Anion Gap 10 (6-14) Blood Urea Nitrogen 14 mg/dL (7-20) Creatinine 0.8 mg/dL (0.6-1.0) Estimated GFR (Cockcroft-Gault) 72.2 Glucose Level 135 mg/dL (70-99) Calcium Level 9.0 mg/dL (8.5-10.1) Phosphorus Level 3.8 mg/dL (2.6-4.7) Magnesium Level 2.1 mg/dL (1.8-2.4) Test 08/08/16 07:47 08/08/16 11:43 08/08/16 16:21 08/08/16 21:09 Glucose (Fingerstick) 164 mg/dL (70-99) 131 mg/dL (70-99) 138 mg/dL (70-99) 140 mg/dL (70-99) Test 08/09/16 06:45 08/09/16 07:31 Albumin 3.2 g/dL (3.4-5.0) Glucose (Fingerstick) 144 mg/dL (70-99) Laboratory Tests Test 08/08/16 11:43 08/08/16 16:21 08/08/16 21:09 08/09/16 06:45 Glucose (Fingerstick) 131 mg/dL (70-99) 138 mg/dL (70-99) 140 mg/dL (70-99) Albumin 3.2 g/dL (3.4-5.0) Test 08/09/16 07:31 Glucose (Fingerstick) 144 mg/dL (70-99) Assessment/Plan EC fistula, no acute changes Dr Wang back tomorrow with further surgical plans Problems: WILLY DENISE MD August 09, 2016 08:26
[2016-08-09] MEDS: GLIMEPIRIDE 2 MG TABLET. PO SCH (08:42)
[2016-08-09] MEDS: AMITRIPTYLINE HCL 10 MG TABLET. PO SCH (08:42)
[2016-08-09] MEDS: predniSONE 20 MG TABLET PO SCH (08:42)
[2016-08-09] MEDS: BRIMONIDINE 0.2% OPHTH SOLUTION 5ML BOTTLE. OD SCH (08:47)
[2016-08-09] MEDS: COMBIGAN EYE DROPS OS SCH ×2 (08:48→20:10)
[2016-08-09] MEDS: LUMIGAN EYE DROPS OD SCH (08:48)
[2016-08-09] MEDS: BENZONATATE 100 MG CAPSULE. PO SCH ×3 (09:00→20:09)
[2016-08-09 11:00] VITALS: BP 129/70
--- NOTE | 2016-08-09 11:36 | PDOC ---
PROGRESS NOTES Subjective Subjective none Objective Objective Vital Signs Date Time Temp Pulse Resp B/P (MAP) Pulse Ox O2 Delivery O2 Flow Rate FiO2 08/09/16 07:01 94 Room Air 08/09/16 07:00 98.1 88 20 150/73 (98) 98.1 Intake and Output 08/09/16 07:00 Intake Total 0 ml Balance 0 ml Intake Oral 0 ml # Voids 7 Physical Exam Abdomen: Normal bowel sounds, Soft, Other (Abdominal wound dressed) Heart: Regular rate, Normal S1, Normal S2 Extremities: No clubbing General: Alert, Oriented X3, Cooperative, No acute distress HEENT: Atraumatic Lungs: Clear to auscultation MUSCULOSKELETAL: No deformity Neck: Supple Neuro: Normal speech Psych/Mental Status: Mental status NL COMMENT drainage from umbilicus Assessment Assessment FINAL IMPRESSION: 1. Enterocutaneous fistula. 2. Drainage from the umbilicus with surrounding maceration, erythema of the abdominal wall. 3. History of abdominal surgery for hernia with? mesh, 3 years ago. 4. History of cerebrovascular accident and subdural hematoma in the past. 5. Chronic obstructive pulmonary disease, smoker. PLAN:spoke with monitor labs on TPN.labs good. NPO for now. s/p picc line placed Surgery early this week. iv antibiotics Zosyn. Problems: Comment Review of Relevant I have reviewed the following items ranulfo (where applicable) has been applied. Labs Laboratory Tests Test 08/08/16 11:43 08/08/16 16:21 08/08/16 21:09 08/09/16 06:45 Glucose (Fingerstick) 131 mg/dL (70-99) 138 mg/dL (70-99) 140 mg/dL (70-99) Albumin 3.2 g/dL (3.4-5.0) Test 08/09/16 07:31 Glucose (Fingerstick) 144 mg/dL (70-99) Microbiology 08/02/16 Gram Stain - Final, Complete Medications Current Medications Cefoxitin Sodium 100 ml @ 200 mls/hr 1X ONCE IV ; Start 08/10/16 at 06:00; Stop 08/10/16 at 06:29 Meclizine HCl (Antivert) 25 mg PRN TID PRN PO dizziness Last administered on t 08:47; Start 08/09/16 at 07:30 Sodium Chloride 50 meq/Potassium Chloride 50 meq/ Potassium Phosphate 13.6 mmol/ Magnesium Sulfate 5 meq/ Calcium Gluconate 10 meq/ Multivitamins 10 ml/Chromium / Copper/Manganese/ Seleni/Zn 1 ml/ Total Parenteral Nutrition/Amino Acids/ Dextrose/ Fat Emulsion Intravenous 1,512 ml @ 63 mls/hr TPN CONT IV Last administered on 08/08/16t 21:24; Start 08/08/16 at 22:00; Stop 08/09/16 at 21:59 Vitals/I & O Vital Sign - Last 24 Hours 08/08/16 08/08/16 08/08/16 08/08/16 15:04 16:44 19:19 19:52 Temp 98.0 97.5 98.0 97.5 Pulse 84 100 Resp 16 18 B/P (MAP) 150/76 (100) 152/98 (116) Pulse Ox 90 93 O2 Delivery Room Air Room Air Room Air Room Air 08/08/16 08/08/16 08/09/16 08/09/16 20:20 23:10 03:05 07:00 Temp 98.1 98.1 98.1 98.1 98.1 98.1 Pulse 89 89 88 Resp 18 18 20 B/P (MAP) 154/68 (96) 138/69 (92) 150/73 (98) Pulse Ox 91 94 93 O2 Delivery Room Air Room Air Room Air Room Air 08/09/16 07:01 Pulse Ox 94 O2 Delivery Room Air Intake and Output 08/08/16 08/08/16 08/09/16 15:00 23:00 07:00 Intake Total 0 ml Balance 0 ml CHRISTOPH LE MD August 09, 2016 11:36
[2016-08-09] MEDS: TPN PER PHARMACY MC PRN (14:38)
[2016-08-09 15:00] VITALS: BP 131/94
[2016-08-09] MEDS: FLUCONAZOLE 200MG/100ML PREMIX 100 ML IV SCH (17:21)
[2016-08-09 19:00] VITALS: BP 153/77
[2016-08-09] MEDS ORDERED: DEXTROSE 70% IV SCH ×10 (22:00)
[2016-08-09] MEDS ORDERED: AMINO ACIDS IV SCH ×10 (22:00)
[2016-08-09] MEDS ORDERED: TOTAL PARENTERAL NUTRITION IV SCH ×10 (22:00)
[2016-08-09] MEDS ORDERED: [UNRECOGNIZED DRUG - OTHER] IV SCH ×10 (22:00)
[2016-08-09 23:00] VITALS: BP 151/84
[2016-08-10] VITALS (12 sets, daily range): BP systolic 102–165; BP diastolic 63–75
[2016-08-10] MEDS: fentaNYL PF VIAL 100 MCG/2 ML VIAL IV PRN ×5 (00:29→16:39)
[2016-08-10] MEDS: PIPERACILLIN/TAZOBACTAM 3.375 GM in IV NORMAL SALINE 50ML 50 ML IV SCH ×3 (05:45→18:56)
[2016-08-10] MEDS ORDERED: MORPHINE SULFATE 2 MG/ML DISP.SYRIN. IV PRN (07:00)
[2016-08-10] MEDS ORDERED: LIDOCAINE 1% 1 ML SYRINGE. ID PRN (07:00)
[2016-08-10] MEDS ORDERED: fentaNYL PF VIAL 100 MCG/2 ML VIAL IV PRN (07:00)
[2016-08-10] MEDS ORDERED: IV RINGERS,LACTATED 1000ML 1,000 ML IV SCH (07:00)
[2016-08-10] MEDS ORDERED: HYDROmorphone 2 MG/ML VIAL IV PRN (07:00)
[2016-08-10] MEDS ORDERED: PROCHLORPERAZINE 10 MG/2 ML VIAL. IV PRN (07:00)
[2016-08-10] MEDS: ALBUTEROL SULFATE 2.5 MG/3 ML NEBU. NEB SCH ×4 (07:12→19:30)
[2016-08-10] MEDS: PANTOPRAZOLE IV PUSH 40 MG VIAL. IVP SCH (07:30)
[2016-08-10] MEDS: INSULIN ASPART 300 UNITS/3 ML INSULN.PEN SQ SCH ×3 (08:00→17:15)
[2016-08-10] MEDS: BRIMONIDINE 0.2% OPHTH SOLUTION 5ML BOTTLE. OD SCH (08:43)
[2016-08-10] MEDS: COMBIGAN EYE DROPS OS SCH (08:43)
[2016-08-10] MEDS: LUMIGAN EYE DROPS OD SCH (08:45)
--- NOTE | 2016-08-10 08:56 | PDOC ---
Infectious Disease Note Subjective Subjective Feeling alright NPO, on TPN ROS ROS GEN: Denies fevers, chills, sweats HEENT: Denies blurred vision, sore throat CV: Denies chest pain RESP: Denies shortness of air, cough GI: Denies n/v/d NEURO: Denies confusion, dizziness MSK: Denies weakness, joint pain/swelling Vital Sign Vital Signs Vital Signs Date Time Temp Pulse Resp B/P (MAP) Pulse Ox O2 Delivery O2 Flow Rate FiO2 08/10/16 07:13 93 Room Air 08/10/16 07:00 97.8 98 20 165/75 (105) 97.8 Physical Exam PHYSICAL EXAM GENERAL: Sitting side of bed, NAD HEENT: Right eye reactive, (left eye blind). Dentures NECK: Supple, no JVD, no LN LUNGS: Clear HEART: S1S2, no gallop, no murmur ABD: Soft, NT, BS present. 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 (08/05). clean Labs Lab Laboratory Tests Test 08/09/16 11:45 08/09/16 16:13 08/09/16 20:36 08/10/16 07:24 Glucose (Fingerstick) 163 mg/dL (70-99) 164 mg/dL (70-99) 143 mg/dL (70-99) 149 mg/dL (70-99) Micro Micro ANAEROBIC-AEROBIC CULTURE Final Final report ANAEROBIC RES 1 Final Comment No anaerobic growth in 72 hours. AEROBIC RES 1 Final Proteus mirabilis AEROBIC RES 2 Final Enterococcus faecalis AEROBIC RES 3 Final Enterococcus faecalis Antibiotic RSLT#1 RSLT#2 RSLT#3 Amoxicillin/Clavulanic Acid S Ampicillin S Cefepime S Ceftriaxone S Cefuroxime S Ciprofloxacin S Ertapenem S Gentamicin S Levofloxacin S Penicillin S S Piperacillin S Tetracycline R Tobramycin S Trimethoprim/Sulfa S Vancomycin S S Objective Assessment EC fistula. Proteus and E. faecalis x 2 ampS, yeast Cellulitis/irritation by bile leak. Hernia surgery 2 yrs ago with mesh DM Subdural hematoma Plan Plan of Care Zosyn and Diflucan NPO Await surgery - today Labs ordered for am D/w D/w MARII Bal MD August 10, 2016 08:56
[2016-08-10] MEDS: AMITRIPTYLINE HCL 10 MG TABLET. PO SCH (09:00)
[2016-08-10] MEDS: BENZONATATE 100 MG CAPSULE. PO SCH ×3 (09:00→20:30)
[2016-08-10] MEDS: GLIMEPIRIDE 2 MG TABLET. PO SCH (09:00)
[2016-08-10] MEDS: predniSONE 20 MG TABLET PO SCH (09:00)
[2016-08-10] MEDS: COMBIGAN EYE DROPS OD SCH ×2 (09:00→20:30)
[2016-08-10] MEDS ORDERED: LIDOCAINE 2% PF Vial for OR 5 ML VIAL. ONE (09:03)
[2016-08-10] MEDS ORDERED: ONDANSETRON PF 4 MG/2 ML VIAL. ONE (09:03)
[2016-08-10] MEDS ORDERED: DEXAMETHASONE SOD PHOS 20 MG/5 ML VIAL. ONE (09:03)
[2016-08-10] MEDS ORDERED: PROPOFOL 20 ML IV ONE (09:03)
[2016-08-10] MEDS ORDERED: MIDAZOLAM HCL/PF 2 MG/2 ML VIAL. ONE (09:03)
[2016-08-10] MEDS ORDERED: fentaNYL PF VIAL 100 MCG/2 ML VIAL ONE ×2 (09:04→11:45)
[2016-08-10] MEDS ORDERED: ROCURONIUM 50 MG/5 ML VIAL. ONE ×2 (09:04→11:11)
--- NOTE | 2016-08-10 09:32 | PDOC ---
SURGICAL PROGRESS NOTE Subjective 65 yo F with EC fistula drainage appears to have increased on conservative measures, with extensive excoriation. Given this and presence of mesh, operative intervention indicated. TO OR for repair R/B/A d/w pt Vital Signs Vital Signs Date Time Temp Pulse Resp B/P (MAP) Pulse Ox O2 Delivery O2 Flow Rate FiO2 08/10/16 07:13 93 Room Air 08/10/16 07:00 97.8 98 20 165/75 (105) 97.8 I&O Intake and Output 08/10/16 06:59 Intake Total 0 ml Balance 0 ml Intake Oral 0 ml # Voids 6 Labs Laboratory Tests Test 08/08/16 11:43 08/08/16 16:21 08/08/16 21:09 08/09/16 06:45 Glucose (Fingerstick) 131 mg/dL (70-99) 138 mg/dL (70-99) 140 mg/dL (70-99) Albumin 3.2 g/dL (3.4-5.0) Test 08/09/16 07:31 08/09/16 11:45 08/09/16 16:13 08/09/16 20:36 Glucose (Fingerstick) 144 mg/dL (70-99) 163 mg/dL (70-99) 164 mg/dL (70-99) 143 mg/dL (70-99) Test 08/10/16 07:24 Glucose (Fingerstick) 149 mg/dL (70-99) Laboratory Tests Test 08/09/16 11:45 08/09/16 16:13 08/09/16 20:36 08/10/16 07:24 Glucose (Fingerstick) 163 mg/dL (70-99) 164 mg/dL (70-99) 143 mg/dL (70-99) 149 mg/dL (70-99) DANYA EPSTEIN MD August 10, 2016 09:32
[2016-08-10] MEDS ORDERED: PHENYLEPHRINE in 0.9% NACL PF 1 MG/10 ML DISP.SYRIN. IV ONE (09:52)
--- NOTE | 2016-08-10 10:38 | PDOC ---
PROGRESS NOTES Subjective Subjective went to OR this morning Objective Objective Vital Signs Date Time Temp Pulse Resp B/P (MAP) Pulse Ox O2 Delivery O2 Flow Rate FiO2 08/10/16 09:28 97.6 94 15 139/65 93 Room Air 97.6 Intake and Output 08/10/16 07:00 Intake Total 0 ml Balance 0 ml Intake Oral 0 ml # Voids 6 Physical Exam Abdomen: Normal bowel sounds, Soft, Other (Abdominal wound dressed) Heart: Regular rate, Normal S1, Normal S2 Extremities: No clubbing General: Alert, Oriented X3, Cooperative, No acute distress HEENT: Atraumatic Lungs: Clear to auscultation MUSCULOSKELETAL: No deformity Neck: Supple Neuro: Normal speech Psych/Mental Status: Mental status NL COMMENT drainage from umbilicus Assessment Assessment FINAL IMPRESSION: 1. Enterocutaneous fistula. 2. Drainage from the umbilicus with surrounding maceration, erythema of the abdominal wall. 3. History of abdominal surgery for hernia with? mesh, 3 years ago. 4. History of cerebrovascular accident and subdural hematoma in the past. 5. Chronic obstructive pulmonary disease, smoker. PLAN:surgery today monitor labs on TPN.labs good. NPO for now. s/p picc line placed iv antibiotics Zosyn. Problems: Comment Review of Relevant I have reviewed the following items ranulfo (where applicable) has been applied. Labs Laboratory Tests Test 08/09/16 11:45 08/09/16 16:13 08/09/16 20:36 08/10/16 07:24 Glucose (Fingerstick) 163 mg/dL (70-99) 164 mg/dL (70-99) 143 mg/dL (70-99) 149 mg/dL (70-99) Microbiology 08/02/16 Gram Stain - Final, Complete Medications Current Medications Cefoxitin Sodium 100 ml @ 200 mls/hr 1X ONCE IV Last administered on t 09:57; Start 08/10/16 at 06:00; Stop 08/10/16 at 06:29; Status DC Cefoxitin Sodium 100 ml @ 200 mls/hr OC PROC PRN IV PROCEDURE; Start 08/10/16 at 06:00; Stop 08/10/16 at 23:59 Cefoxitin Sodium 2 gm/Sodium Chloride 100 ml @ 200 mls/hr 1X PREOP IV ; Start 08/09/16 at 19:15; Status UNV Fentanyl Citrate (Fentanyl 2ml Vial) 25 mcg PRN Q5MIN PRN IV MILD PAIN; Start 08/10/16 at 07:00; Stop 08/10/16 at 18:00 Fentanyl Citrate (Fentanyl 2ml Vial) 50 mcg PRN Q5MIN PRN IV MODERATE PAIN; Start 08/10/16 at 07:00; Stop 08/10/16 at 18:00 Hydromorphone HCl (Dilaudid) 0.5 mg PRN Q10MIN PRN IV SEV PAIN, Second choice; Start 08/10/16 at 07:00; Stop 08/10/16 at 18:00 Lidocaine HCl 2 ml PRN 1X PRN ID PRIOR TO IV START; Start 08/10/16 at 07:00; Stop 08/10/16 at 18:00 Morphine Sulfate 1 mg PRN Q10MIN PRN IV SEVERE PAIN; Start 08/10/16 at 07:00; Stop 08/10/16 at 18:00 Non-Formulary Medication 1 ea BID OD Last administered on 08/10/16 09:00; Start 08/10/16 at 08:52 Prochlorperazine Edisylate (Compazine) 5 mg PACU PRN PRN IV NAUSEA, MRX1; Start 08/10/16 at 07:00; Stop 08/10/16 at 18:00 Ringer's Solution 1,000 ml @ 30 mls/hr Q24H IV Last administered on 08/10/16 09:27; Start 08/10/16 at 07:00; Stop 08/10/16 at 18:59 Sodium Chloride 50 meq/Potassium Chloride 50 meq/ Potassium Phosphate 13.6 mmol/ Magnesium Sulfate 5 meq/ Calcium Gluconate 10 meq/ Multivitamins 10 ml/Chromium / Copper/Manganese/ Seleni/Zn 1 ml/ Total Parenteral Nutrition/Amino Acids/ Dextrose/ Fat Emulsion Intravenous 1,512 ml @ 63 mls/hr TPN CONT IV Last administered on 08/09/16 20:09; Start 08/09/16 at 22:00; Stop 08/10/16 at 21:59 Vitals/I & O Vital Sign - Last 24 Hours 08/09/16 08/09/16 08/09/16 08/09/16 11:00 11:37 15:00 16:16 Temp 98.1 98.2 98.1 98.2 Pulse 81 92 Resp 20 20 B/P (MAP) 129/70 (89) 131/94 (106) Pulse Ox 93 95 94 O2 Delivery Room Air Room Air Room Air Room Air 08/09/16 08/09/16 08/09/16 08/09/16 19:00 20:10 20:17 23:00 Temp 98.4 98.4 98.4 98.4 Pulse 85 86 Resp 22 20 B/P (MAP) 153/77 (102) 151/84 (106) Pulse Ox 95 94 O2 Delivery Room Air Room Air Room Air Room Air 08/10/16 08/10/16 08/10/16 08/10/16 00:29 01:02 03:00 07:00 Temp 98.1 97.8 98.1 97.8 Pulse 90 98 Resp 18 20 B/P (MAP) 132/71 (91) 165/75 (105) Pulse Ox 94 94 92 92 O2 Delivery Room Air Room Air Room Air Room Air 08/10/16 08/10/16 08/10/16 07:13 07:45 09:28 Temp 97.6 97.6 Pulse 94 Resp 15 B/P (MAP) 139/65 Pulse Ox 93 93 O2 Delivery Room Air Room Air Room Air Intake and Output 08/09/16 08/09/16 08/10/16 15:00 23:00 07:00 Intake Total 0 ml 0 ml Balance 0 ml 0 ml CHRISTOPH LE MD August 10, 2016 10:38
[2016-08-10] MEDS ORDERED: ePHEDrine PF IN SALINE 50 MG/5 ML DISP.SYRIN IV ONE (10:50)
[2016-08-10] MEDS ORDERED: GLYCOPYRROLATE 1 MG/5 ML VIAL. ONE (11:58)
[2016-08-10] MEDS ORDERED: NEOSTIGMINE 10 MG/10 ML VIAL. ONE (11:58)
--- NOTE | 2016-08-10 12:12 | PDOC ---
BRIEF OPERATIVE NOTE Pre-Op Diagnosis EC fistula Post-Op Diagnosis same Procedure Performed Xlap, MACIEL, SBR, removal of mesh, VIH repair Surgeon Felipe Anesthesia Type: General Blood Loss 150 IV Fluid 1200 Specimens Obtained mesh/small bowel Findings adherent sb to mesh Complications none Additional Remarks [id number] DANYA EPSTEIN MD August 10, 2016 12:12
[2016-08-10] MEDS ORDERED: NALOXONE 0.4 MG/ML VIAL. IV PRN (12:15)
[2016-08-10] MEDS ORDERED: 0.9 % SODIUM CHLORIDE 10 ML DISP.SYRIN. IV PRN (12:15)
[2016-08-10] MEDS: TPN PER PHARMACY MC PRN (12:25)
--- NOTE | 2016-08-10 15:09 | OP ---
DATE OF SURGERY: 08/10/2016 REFERRING PHYSICIANS: Dr. Salomón Bass, Dr. Serna. Thank you for the consult. PREOPERATIVE DIAGNOSIS: Enterocutaneous fistula. POSTOPERATIVE DIAGNOSIS: Enterocutaneous fistula. PROCEDURE: Exploratory laparotomy, lysis of adhesion, small-bowel resection, removal of mesh, ventral incisional hernia repair, and debridement of abdominal wall. SURGEON: Farooq Wang M.D. ESTIMATED BLOOD LOSS: 150 mL. FLUIDS: 1200 mL. COMPLICATIONS: None. FINDINGS: Very adherent small-bowel to the large piece of mesh with an enterocutaneous fistula . No other pathology identified. INDICATIONS: A 65-year-old female with a history of a mesh repair of incisional hernia who presents with draining sinus of the abdominal wall. This is secondary to enterocutaneous fistula seen by a CT scan. The patient has been treated with TPN and bowel rest, but continued extensive drainage, and given the concern of foreign body, it was felt the patient best be served by exploratory surgery repair. The patient and the patient's were informed of the risks, benefits, and alternatives of procedure, risks including but not limited to bleeding, infection, damage to surrounding structures, risk of anesthesia, risk of hernia repair, risk of need for bowel resection. The patient and the patient's appeared to understand, and their insightful questions were answered, and they agreed to proceed. She is at a high risk for perioperative complications secondary to her morbid obesity and multiple other medical problems and especially contaminated area. DESCRIPTION OF PROCEDURE: After obtaining informed consent, the patient was taken to operating room, induced under general endotracheal anesthetic. The patient was prepped and draped in the usual fashion in the anterior abdominal wall. The enterocutaneous fistula was identified near the umbilicus draining succus material. An elliptical incision was made through the previous incision as well as the midline incision using electrocautery to include the fistula and contaminated skin around it. Subcutaneous tissue was divided using electrocautery. Dissection was continued down to the level of fascia. Clean fascia was then divided, and a retrofascial mesh was encountered. This was removed from the abdominal wall circumferentially in its entirety. There was very adherent small bowel to the mesh with an obvious fistula. The small bowel proximal and distal to this was excised using general load KATHIE staplers. There was a large amount of small bowel that was very adherent to the mesh. However, patient still has a significant length of small bowel, and small bowel syndrome was not a concern The specimen was passed off field and sent to Pathology for evaluation. A [id number] staple anastomosis was created using gentle load KATHIE stapler. The end of this was sealed off using a TIA 60 stapler. The anastomosis was noted to be patent, under no tension, completely viable. Extensive lysis of adhesions was performed as well, and this was a difficult procedure throughout secondary to extensive adherence to the mesh. The abdominal cavity was copiously irrigated with normal saline solution. Fascia was reapproximated in midline using 2 looped 0 PDS stitches in continuous fashion. A Molly drain was placed in the subcutaneous tissues. A 3-0 Vicryl was used to reapproximate the subcutaneous tissues. Skin incisions were reapproximated with 4-0 Monocryl in subcuticular fashion, and a [place] drain was secured in place using a 3-0 nylon stitch. The patient tolerated the procedure well and was discharged to recovery room in stable condition. All counts were correct. There were no immediate complications. Thank you for allowing consultation with this pleasant patient. FAROOQ WANG MD DR: BIANCA/genesis JOB#: [id number] / [id number] Dr. Salomón Mcneil CARLO MD KODURI, VINAYA MD MTDD
--- NOTE | 2016-08-10 15:32 | RAD ---
Abdomen radiograph History: Status post expiratory laparotomy. Comparison: None. Findings: AP view of the abdomen. Bowel gas pattern is without evidence of obstruction. There is an elongated linear radiodensity involving the left abdomen and pelvis, compatible with [place] drain. No other radiopaque foreign body is seen. Impression: Molly drain. No other radiopaque foreign body identified.
[2016-08-10] MEDS: IV NORMAL SALINE 1000ML BAG 1,000 ML IV SCH (16:30)
[2016-08-10] MEDS: FLUCONAZOLE 200MG/100ML PREMIX 100 ML IV SCH (17:19)
[2016-08-10] MEDS: ENOXAPARIN 40 MG/0.4 ML SYRINGE. SQ SCH (21:13)
[2016-08-10] MEDS ORDERED: TOTAL PARENTERAL NUTRITION IV SCH ×10 (22:00)
[2016-08-10] MEDS ORDERED: AMINO ACIDS IV SCH ×10 (22:00)
[2016-08-10] MEDS ORDERED: [UNRECOGNIZED DRUG - OTHER] IV SCH ×10 (22:00)
[2016-08-10] MEDS ORDERED: DEXTROSE 70% IV SCH ×10 (22:00)
[2016-08-11 03:25] VITALS: BP 146/77
[2016-08-11] MEDS: PIPERACILLIN/TAZOBACTAM 3.375 GM in IV NORMAL SALINE 50ML 50 ML IV SCH ×6 (06:32→23:50)
[2016-08-11 07:00] VITALS: BP 147/83
[2016-08-11 07:33] LABS: BASO # 0.1 x10^3/uL (0.0-0.2); BASO % 0 % (0-3); EOS % 0 % (0-3); HEMATOCRIT 33.9 % (36.0-47.0); HEMOGLOBIN 11.1 g/dL (12.0-15.5); LYMPH # 2.2 x10^3/uL (1.0-4.8); LYMPH % 13 % (24-48); MEAN CORPUSCULAR HEMOGLOBIN 29 pg (25-35); MEAN CORPUSCULAR HGB CONC 33 g/dL (31-37); MEAN CORPUSCULAR VOLUME 89 fL (79-100); MONO % 13 % (0-9); NEUT % 74 % (31-73); PLATELET COUNT 263 x10^3/uL (140-400); RED BLOOD COUNT 3.83 x10^6/uL (3.50-5.40); RED CELL DISTRIBUTION WIDTH 13.4 % (11.5-14.5); WHITE BLOOD COUNT 16.9 x10^3/uL (4.0-11.0)
[2016-08-11 07:46] LABS: CALCIUM 7.6 mg/dL (8.5-10.1); CREATININE 1.2 mg/dL (0.6-1.0); GFR 45.2; MAGNESIUM 1.6 mg/dL (1.8-2.4); PHOSPHORUS 3.9 mg/dL (2.6-4.7); POTASSIUM 4.5 mmol/L (3.5-5.1)
[2016-08-11] MEDS: ALBUTEROL SULFATE 2.5 MG/3 ML NEBU. NEB SCH ×4 (07:59→19:34)
[2016-08-11] MEDS: INSULIN ASPART 300 UNITS/3 ML INSULN.PEN SQ SCH ×3 (08:00→17:28)
--- NOTE | 2016-08-11 08:05 | PDOC ---
Infectious Disease Note Subjective Subjective Feeling alright only a little uncomfortable. 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 ROS ROS GEN: Denies fevers, chills, sweats HEENT: Denies blurred vision, sore throat CV: Denies chest pain RESP: Denies shortness of air, cough GI: Denies n/v/d NEURO: Denies confusion, dizziness MSK: Denies weakness, joint pain/swelling Vital Sign Vital Signs Vital Signs Date Time Temp Pulse Resp B/P (MAP) Pulse Ox O2 Delivery O2 Flow Rate FiO2 08/11/16 07:00 97.9 119 20 147/83 (104) 95 Nasal Cannula 4.0 97.9 Physical Exam PHYSICAL EXAM GENERAL: NAD, Alert HEENT: Right eye reactive, left eye blind, OC/OP- NGT coiled NECK: Supple, no JVD, no LN LUNGS: Clear on 02 HEART: S1S2, no gallop, no murmur ABD: Distended. Dressing in place - clean. Decreased BS. 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: Alert, oriented x 3, no focal neurologic deficit SKIN: No rash IV: PICC - clean Labs Lab Laboratory Tests Test 08/10/16 12:27 08/10/16 16:57 08/10/16 20:51 08/11/16 07:20 Glucose (Fingerstick) 177 mg/dL (70-99) 246 mg/dL (70-99) 213 mg/dL (70-99) White Blood Count 16.9 x10^3/uL (4.0-11.0) Red Blood Count 3.83 x10^6/uL (3.50-5.40) Hemoglobin 11.1 g/dL (12.0-15.5) Hematocrit 33.9 % (36.0-47.0) Mean Corpuscular Volume 89 fL (79-100) Mean Corpuscular Hemoglobin 29 pg (25-35) Mean Corpuscular Hemoglobin Concent 33 g/dL (31-37) Red Cell Distribution Width 13.4 % (11.5-14.5) Platelet Count 263 x10^3/uL (140-400) Neutrophils (%) (Auto) 74 % (31-73) Lymphocytes (%) (Auto) 13 % (24-48) Monocytes (%) (Auto) 13 % (0-9) Eosinophils (%) (Auto) 0 % (0-3) Basophils (%) (Auto) 0 % (0-3) Neutrophils # (Auto) 12.6 x10^3uL (1.8-7.7) Lymphocytes # (Auto) 2.2 x10^3/uL (1.0-4.8) Monocytes # (Auto) 2.1 x10^3/uL (0.0-1.1) Eosinophils # (Auto) 0.0 x10^3/uL (0.0-0.7) Basophils # (Auto) 0.1 x10^3/uL (0.0-0.2) Sodium Level 143 mmol/L (136-145) Potassium Level 4.5 mmol/L (3.5-5.1) Chloride Level 110 mmol/L (98-107) Carbon Dioxide Level 20 mmol/L (21-32) Anion Gap 13 (6-14) Blood Urea Nitrogen 24 mg/dL (7-20) Creatinine 1.2 mg/dL (0.6-1.0) Estimated GFR (Cockcroft-Gault) 45.2 Glucose Level 128 mg/dL (70-99) Calcium Level 7.6 mg/dL (8.5-10.1) Phosphorus Level 3.9 mg/dL (2.6-4.7) Magnesium Level 1.6 mg/dL (1.8-2.4) Triglycerides Level 126 mg/dL (0-150) Test 08/11/16 07:22 Glucose (Fingerstick) 167 mg/dL (70-99) Micro Micro ANAEROBIC-AEROBIC CULTURE Final Final report ANAEROBIC RES 1 Final Comment No anaerobic growth in 72 hours. AEROBIC RES 1 Final Proteus mirabilis AEROBIC RES 2 Final Enterococcus faecalis AEROBIC RES 3 Final Enterococcus faecalis Antibiotic RSLT#1 RSLT#2 RSLT#3 Amoxicillin/Clavulanic Acid S Ampicillin S Cefepime S Ceftriaxone S Cefuroxime S Ciprofloxacin S Ertapenem S Gentamicin S Levofloxacin S Penicillin S S Piperacillin S Tetracycline R Tobramycin S Trimethoprim/Sulfa S Vancomycin S S Objective Assessment EC fistula. Proteus and E. faecalis x 2 ampS, yeast. S/p repair 08/10 Leukocytosis - post op Cellulitis/irritation by bile leak. Hernia surgery 2 yrs ago with mesh DM Subdural hematoma Plan Plan of Care Zosyn and Diflucan NPO Labs ordered for am D/w MARII PRINCE MD August 11, 2016 08:05
--- NOTE | 2016-08-11 08:32 | RAD ---
Indication assess nasogastric tube placement. A single view targeted to the lower chest and upper abdomen was obtained. Note is made of a nasogastric tube with its tip just beyond the GE junction. A sidehole resides above the GE junction. The tube should be advanced. The abdominal gas pattern is grossly normal. IMPRESSION: NG tube with its tip just beyond the GE junction. The tube should be advanced
[2016-08-11] MEDS: predniSONE 20 MG TABLET PO SCH (09:00)
[2016-08-11] MEDS: BENZONATATE 100 MG CAPSULE. PO SCH ×3 (09:00→21:00)
[2016-08-11] MEDS: LUMIGAN EYE DROPS OD SCH (09:00)
[2016-08-11] MEDS: GLIMEPIRIDE 2 MG TABLET. PO SCH (09:00)
[2016-08-11] MEDS: COMBIGAN EYE DROPS OD SCH ×2 (09:00→20:58)
[2016-08-11] MEDS: AMITRIPTYLINE HCL 10 MG TABLET. PO SCH (09:00)
[2016-08-11 09:34] LABS: PLT ESTIMATE ADEQUATE (ADEQUATE)
--- NOTE | 2016-08-11 09:41 | RAD ---
Abdomen radiograph History: NG tube replacement. Comparison: Earlier 08/11/2016. Findings: AP abdomen radiograph. Esophagogastric tube has been advanced with the tip projecting at the right upper quadrant, either at the gastric antrum or possibly the first portion of the duodenum. Cholecystectomy clips are present. [place] drain is seen in the right side of the abdomen and pelvis, lateral to the spine. Impression: Esophagogastric tube has been advanced with tip projecting at the right upper quadrant.
--- NOTE | 2016-08-11 09:54 | PDOC ---
PROGRESS NOTES Subjective Subjective getting x ray now, feels ok Objective Objective Vital Signs Date Time Temp Pulse Resp B/P (MAP) Pulse Ox O2 Delivery O2 Flow Rate FiO2 08/11/16 08:00 Nasal Cannula 4.0 08/11/16 07:25 98 08/11/16 07:00 97.9 119 20 147/83 (104) 97.9 Intake and Output 08/11/16 07:00 Intake Total 1450 ml Output Total 970 ml Balance 480 ml IV Total 1450 ml Output Urine Total 850 ml Gastric Drainage Total 20 ml Estimated Blood Loss 100 ml Physical Exam Abdomen: Normal bowel sounds, Soft, Other (Abdominal wound dressed) Heart: Regular rate, Normal S1, Normal S2 Extremities: No clubbing General: Alert, Oriented X3, Cooperative, No acute distress HEENT: Atraumatic Lungs: Clear to auscultation MUSCULOSKELETAL: No deformity Neck: Supple Neuro: Normal speech Psych/Mental Status: Mental status NL COMMENT dressings abd wall, NGT Assessment Assessment FINAL IMPRESSION: 1. Enterocutaneous fistula. 2. Drainage from the umbilicus with surrounding maceration, erythema of the abdominal wall. 3. History of abdominal surgery for hernia with? mesh, 3 years ago. 4. History of cerebrovascular accident and subdural hematoma in the past. 5. Chronic obstructive pulmonary disease, smoker. PLAN: POD #1..PROCEDURE: Exploratory laparotomy, lysis of adhesion, small- bowel resection, removal of mesh, ventral incisional hernia repair, and debridement of abdominal wall. surgery done for EC fistula monitor labs on TPN.labs good. NPO for now. s/p picc line placed iv antibiotics Zosyn. Problems: Comment Review of Relevant I have reviewed the following items ranulfo (where applicable) has been applied. Labs Laboratory Tests Test 08/10/16 12:27 08/10/16 16:57 08/10/16 20:51 08/11/16 07:20 Glucose (Fingerstick) 177 mg/dL (70-99) 246 mg/dL (70-99) 213 mg/dL (70-99) White Blood Count 16.9 x10^3/uL (4.0-11.0) Red Blood Count 3.83 x10^6/uL (3.50-5.40) Hemoglobin 11.1 g/dL (12.0-15.5) Hematocrit 33.9 % (36.0-47.0) Mean Corpuscular Volume 89 fL (79-100) Mean Corpuscular Hemoglobin 29 pg (25-35) Mean Corpuscular Hemoglobin Concent 33 g/dL (31-37) Red Cell Distribution Width 13.4 % (11.5-14.5) Platelet Count 263 x10^3/uL (140-400) Neutrophils (%) (Auto) 74 % (31-73) Lymphocytes (%) (Auto) 13 % (24-48) Monocytes (%) (Auto) 13 % (0-9) Eosinophils (%) (Auto) 0 % (0-3) Basophils (%) (Auto) 0 % (0-3) Neutrophils # (Auto) 12.6 x10^3uL (1.8-7.7) Lymphocytes # (Auto) 2.2 x10^3/uL (1.0-4.8) Monocytes # (Auto) 2.1 x10^3/uL (0.0-1.1) Eosinophils # (Auto) 0.0 x10^3/uL (0.0-0.7) Basophils # (Auto) 0.1 x10^3/uL (0.0-0.2) Segmented Neutrophils % 72 % (35-66) Band Neutrophils % 1 % (0-9) Lymphocytes % 19 % (24-48) Monocytes % 8 % (0-10) Platelet Estimate Adequate (ADEQUATE) Sodium Level 143 mmol/L (136-145) Potassium Level 4.5 mmol/L (3.5-5.1) Chloride Level 110 mmol/L (98-107) Carbon Dioxide Level 20 mmol/L (21-32) Anion Gap 13 (6-14) Blood Urea Nitrogen 24 mg/dL (7-20) Creatinine 1.2 mg/dL (0.6-1.0) Estimated GFR (Cockcroft-Gault) 45.2 Glucose Level 128 mg/dL (70-99) Calcium Level 7.6 mg/dL (8.5-10.1) Phosphorus Level 3.9 mg/dL (2.6-4.7) Magnesium Level 1.6 mg/dL (1.8-2.4) Triglycerides Level 126 mg/dL (0-150) Test 08/11/16 07:22 Glucose (Fingerstick) 167 mg/dL (70-99) Microbiology 08/02/16 Gram Stain - Final, Complete Medications Current Medications Cefoxitin Sodium 2 gm/Sodium Chloride 100 ml @ 200 mls/hr Q6H IV Last administered on 08/11/16 03:18; Start 08/10/16 at 16:00; Stop 08/11/16 at 04:29 ; Status DC Enoxaparin Sodium (Lovenox 40mg Syringe) 40 mg BID SQ Last administered on 08/10 21:13; Start 08/10/16 at 22:00 Hydromorphone HCl 30 ml @ 0 mls/hr CONT PRN PRN IV PROTOCOL Last administered on 08/10/16 12:32; Start 08/10/16 at 12:15 Naloxone HCl (Narcan) 0.4 mg PRN Q2MIN PRN IV SEE INSTRUCTIONS; Start 08/10/16 at 12:15 Sodium Chloride 1,000 ml @ 25 mls/hr Q24H IV Last administered on 08/10/16 16 :30; Start 08/10/16 at 12:01 Sodium Chloride (Normal Saline Flush) 3 ml QSHIFT PRN IV AFTER MEDS AND BLOOD DRAWS; Start 08/10/16 at 12:15 Sodium Chloride 50 meq/Potassium Chloride 50 meq/ Potassium Phosphate 13.6 mmol/ Magnesium Sulfate 5 meq/ Calcium Gluconate 10 meq/ Multivitamins 10 ml/Chromium / Copper/Manganese/ Seleni/Zn 1 ml/ Total Parenteral Nutrition/Amino Acids/ Dextrose/ Fat Emulsion Intravenous 1,512 ml @ 63 mls/hr TPN CONT IV Last administered on 08/10/16 21:12; Start 08/10/16 at 22:00; Stop 08/11/16 at 21:59 Vitals/I & O Vital Sign - Last 24 Hours 08/10/16 08/10/16 08/10/16 08/10/16 12:19 12:19 12:32 12:33 Temp 97.7 97.7 Pulse 82 Resp 20 20 22 B/P (MAP) 127/57 Pulse Ox 94 O2 Delivery Simple Mask Mask Simple Mask Simple Mask O2 Flow Rate 10 10 10.0 10.0 08/10/16 08/10/16 08/10/16 08/10/16 12:34 12:49 13:04 13:06 Pulse 82 81 81 Resp 20 20 20 22 B/P (MAP) 133/55 138/62 118/59 Pulse Ox 95 96 91 96 O2 Delivery Simple Mask Simple Mask Nasal Cannula Simple Mask O2 Flow Rate 10 10 4 10.0 08/10/16 08/10/16 08/10/16 08/10/16 13:06 13:18 13:33 13:38 Temp 98.8 98.8 Pulse 81 80 Resp B/P (MAP) 117/56 118/68 Pulse Ox 96 91 92 92 O2 Delivery Simple Mask Nasal Cannula Nasal Cannula O2 Flow Rate 10.0 4 4 4.0 08/10/16 08/10/16 08/10/16 08/10/16 13:45 13:49 14:14 14:16 Temp 98.8 97.8 97.7 98.8 97.8 97.7 Pulse 82 96 96 Resp 20 B/P (MAP) 122/79 139/67 (91) 144/68 (93) Pulse Ox 99 93 94 O2 Delivery Nasal Cannula Nasal Cannula Room Air Room Air O2 Flow Rate 4 4 08/10/16 08/10/16 08/10/16 08/10/16 14:26 14:41 14:56 15:15 Temp 97.7 97.7 97.7 97.7 97.7 97.7 Pulse 97 95 93 Resp 20 20 B/P (MAP) 137/74 (95) 143/74 (97) 135/67 (89) Pulse Ox 93 93 93 95 O2 Delivery Room Air Room Air Room Air Nasal Cannula O2 Flow Rate 4.0 08/10/16 08/10/16 08/10/16 08/10/16 15:41 16:12 17:11 18:11 Temp 97.7 98.1 98.1 98.1 97.7 98.1 98.1 98.1 Pulse 99 100 106 109 Resp 20 20 20 20 B/P (MAP) 146/73 (97) 114/66 (82) 129/63 (85) 134/70 (91) Pulse Ox 97 96 96 96 O2 Delivery Room Air Room Air Room Air Room Air 08/10/16 08/10/16 08/10/16 08/11/16 19:30 20:00 23:13 03:25 Temp 98.3 98.3 Pulse 103 107 Resp 18 18 B/P (MAP) 102/68 (79) 146/77 (100) Pulse Ox 93 96 O2 Delivery Nasal Cannula Room Air Nasal Cannula Nasal Cannula O2 Flow Rate 4.0 4.0 4.0 08/11/16 08/11/16 08/11/16 07:00 07:25 08:00 Temp 97.9 97.9 Pulse 119 Resp 20 B/P (MAP) 147/83 (104) Pulse Ox 95 98 O2 Delivery Nasal Cannula Nasal Cannula Nasal Cannula O2 Flow Rate 4.0 4.0 4.0 Intake and Output 08/10/16 08/10/16 08/11/16 15:00 23:00 07:00 Intake Total 1450 ml Output Total 270 ml 150 ml 550 ml Balance 1180 ml -150 ml -550 ml CHRISTOPH LE MD August 11, 2016 09:54
[2016-08-11] MEDS: ENOXAPARIN 40 MG/0.4 ML SYRINGE. SQ SCH ×2 (10:00→20:57)
[2016-08-11] MEDS: PANTOPRAZOLE IV PUSH 40 MG VIAL. IVP SCH (10:00)
[2016-08-11] MEDS: BRIMONIDINE 0.2% OPHTH SOLUTION 5ML BOTTLE. OD SCH (10:02)
--- NOTE | 2016-08-11 10:03 | PDOC ---
SURGICAL PROGRESS NOTE Subjective feeling better, NG repositioned incisional pain Vital Signs Vital Signs Date Time Temp Pulse Resp B/P (MAP) Pulse Ox O2 Delivery O2 Flow Rate FiO2 08/11/16 08:00 Nasal Cannula 4.0 08/11/16 07:25 98 08/11/16 07:00 97.9 119 20 147/83 (104) 97.9 I&O Intake and Output 08/11/16 07:00 Intake Total 1450 ml Output Total 970 ml Balance 480 ml IV Total 1450 ml Output Urine Total 850 ml Gastric Drainage Total 20 ml Estimated Blood Loss 100 ml PATIENT HAS A BRAN: Yes (dc pod#2) General: Alert, Oriented X3, Cooperative, No acute distress Abdomen: Soft, Other (dressing dry ) Labs Laboratory Tests Test 08/09/16 11:45 08/09/16 16:13 08/09/16 20:36 08/10/16 07:24 Glucose (Fingerstick) 163 mg/dL (70-99) 164 mg/dL (70-99) 143 mg/dL (70-99) 149 mg/dL (70-99) Test 08/10/16 12:27 08/10/16 16:57 08/10/16 20:51 08/11/16 07:20 Glucose (Fingerstick) 177 mg/dL (70-99) 246 mg/dL (70-99) 213 mg/dL (70-99) White Blood Count 16.9 x10^3/uL (4.0-11.0) Red Blood Count 3.83 x10^6/uL (3.50-5.40) Hemoglobin 11.1 g/dL (12.0-15.5) Hematocrit 33.9 % (36.0-47.0) Mean Corpuscular Volume 89 fL (79-100) Mean Corpuscular Hemoglobin 29 pg (25-35) Mean Corpuscular Hemoglobin Concent 33 g/dL (31-37) Red Cell Distribution Width 13.4 % (11.5-14.5) Platelet Count 263 x10^3/uL (140-400) Neutrophils (%) (Auto) 74 % (31-73) Lymphocytes (%) (Auto) 13 % (24-48) Monocytes (%) (Auto) 13 % (0-9) Eosinophils (%) (Auto) 0 % (0-3) Basophils (%) (Auto) 0 % (0-3) Neutrophils # (Auto) 12.6 x10^3uL (1.8-7.7) Lymphocytes # (Auto) 2.2 x10^3/uL (1.0-4.8) Monocytes # (Auto) 2.1 x10^3/uL (0.0-1.1) Eosinophils # (Auto) 0.0 x10^3/uL (0.0-0.7) Basophils # (Auto) 0.1 x10^3/uL (0.0-0.2) Segmented Neutrophils % 72 % (35-66) Band Neutrophils % 1 % (0-9) Lymphocytes % 19 % (24-48) Monocytes % 8 % (0-10) Platelet Estimate Adequate (ADEQUATE) Sodium Level 143 mmol/L (136-145) Potassium Level 4.5 mmol/L (3.5-5.1) Chloride Level 110 mmol/L (98-107) Carbon Dioxide Level 20 mmol/L (21-32) Anion Gap 13 (6-14) Blood Urea Nitrogen 24 mg/dL (7-20) Creatinine 1.2 mg/dL (0.6-1.0) Estimated GFR (Cockcroft-Gault) 45.2 Glucose Level 128 mg/dL (70-99) Calcium Level 7.6 mg/dL (8.5-10.1) Phosphorus Level 3.9 mg/dL (2.6-4.7) Magnesium Level 1.6 mg/dL (1.8-2.4) Triglycerides Level 126 mg/dL (0-150) Test 08/11/16 07:22 Glucose (Fingerstick) 167 mg/dL (70-99) Laboratory Tests Test 08/10/16 12:27 08/10/16 16:57 08/10/16 20:51 08/11/16 07:20 Glucose (Fingerstick) 177 mg/dL (70-99) 246 mg/dL (70-99) 213 mg/dL (70-99) White Blood Count 16.9 x10^3/uL (4.0-11.0) Red Blood Count 3.83 x10^6/uL (3.50-5.40) Hemoglobin 11.1 g/dL (12.0-15.5) Hematocrit 33.9 % (36.0-47.0) Mean Corpuscular Volume 89 fL (79-100) Mean Corpuscular Hemoglobin 29 pg (25-35) Mean Corpuscular Hemoglobin Concent 33 g/dL (31-37) Red Cell Distribution Width 13.4 % (11.5-14.5) Platelet Count 263 x10^3/uL (140-400) Neutrophils (%) (Auto) 74 % (31-73) Lymphocytes (%) (Auto) 13 % (24-48) Monocytes (%) (Auto) 13 % (0-9) Eosinophils (%) (Auto) 0 % (0-3) Basophils (%) (Auto) 0 % (0-3) Neutrophils # (Auto) 12.6 x10^3uL (1.8-7.7) Lymphocytes # (Auto) 2.2 x10^3/uL (1.0-4.8) Monocytes # (Auto) 2.1 x10^3/uL (0.0-1.1) Eosinophils # (Auto) 0.0 x10^3/uL (0.0-0.7) Basophils # (Auto) 0.1 x10^3/uL (0.0-0.2) Segmented Neutrophils % 72 % (35-66) Band Neutrophils % 1 % (0-9) Lymphocytes % 19 % (24-48) Monocytes % 8 % (0-10) Platelet Estimate Adequate (ADEQUATE) Sodium Level 143 mmol/L (136-145) Potassium Level 4.5 mmol/L (3.5-5.1) Chloride Level 110 mmol/L (98-107) Carbon Dioxide Level 20 mmol/L (21-32) Anion Gap 13 (6-14) Blood Urea Nitrogen 24 mg/dL (7-20) Creatinine 1.2 mg/dL (0.6-1.0) Estimated GFR (Cockcroft-Gault) 45.2 Glucose Level 128 mg/dL (70-99) Calcium Level 7.6 mg/dL (8.5-10.1) Phosphorus Level 3.9 mg/dL (2.6-4.7) Magnesium Level 1.6 mg/dL (1.8-2.4) Triglycerides Level 126 mg/dL (0-150) Test 5/31/17 07:22 Glucose (Fingerstick) 167 mg/dL (70-99) Assessment/Plan POD#1 xlap NG, bowel rest begin ambulation-pt/ot 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
[2016-08-11 11:00] VITALS: BP 134/74
[2016-08-11] MEDS: IV NORMAL SALINE 1000ML BAG 1,000 ML IV SCH (12:01)
[2016-08-11] MEDS: cloNIDine TTS-1 1 PATCH PATCH.TDWK TD SCH (12:14)
[2016-08-11] MEDS: TPN PER PHARMACY MC PRN (13:31)
[2016-08-11 14:51] VITALS: BP 119/58
[2016-08-11] MEDS: FLUCONAZOLE 200MG/100ML PREMIX 100 ML IV SCH (15:55)
[2016-08-11 19:00] VITALS: BP 147/55
[2016-08-11] MEDS ORDERED: AMINO ACIDS IV SCH ×10 (22:00)
[2016-08-11] MEDS ORDERED: TOTAL PARENTERAL NUTRITION IV SCH ×10 (22:00)
[2016-08-11] MEDS ORDERED: [UNRECOGNIZED DRUG - OTHER] IV SCH ×10 (22:00)
[2016-08-11] MEDS ORDERED: DEXTROSE 70% IV SCH ×10 (22:00)
[2016-08-11 23:06] VITALS: BP 148/61
[2016-08-12 03:00] VITALS: BP 147/63
[2016-08-12 05:23] LABS: CALCIUM 8.1 mg/dL (8.5-10.1); CREATININE 0.8 mg/dL (0.6-1.0); GFR 72.2; MAGNESIUM 1.9 mg/dL (1.8-2.4); PHOSPHORUS 2.8 mg/dL (2.6-4.7); POTASSIUM 4.3 mmol/L (3.5-5.1)
[2016-08-12] MEDS: PIPERACILLIN/TAZOBACTAM 3.375 GM in IV NORMAL SALINE 50ML 50 ML IV SCH ×4 (06:00→23:27)
[2016-08-12 07:00] VITALS: BP 143/68
[2016-08-12] MEDS: ALBUTEROL SULFATE 2.5 MG/3 ML NEBU. NEB SCH ×4 (07:11→19:46)
[2016-08-12] MEDS: AMITRIPTYLINE HCL 10 MG TABLET. PO SCH (07:19)
[2016-08-12] MEDS: predniSONE 20 MG TABLET PO SCH (07:19)
[2016-08-12] MEDS: BENZONATATE 100 MG CAPSULE. PO SCH ×4 (07:19→21:00)
[2016-08-12] MEDS: GLIMEPIRIDE 2 MG TABLET. PO SCH (07:19)
[2016-08-12] MEDS: INSULIN ASPART 300 UNITS/3 ML INSULN.PEN SQ SCH ×3 (08:00→17:00)
[2016-08-12] MEDS: IV NORMAL SALINE 500ML BAG 500 ML IV SCH (08:46)
[2016-08-12] MEDS: PANTOPRAZOLE IV PUSH 40 MG VIAL. IVP SCH (08:47)
[2016-08-12] MEDS: LUMIGAN EYE DROPS OD SCH (08:47)
[2016-08-12] MEDS: COMBIGAN EYE DROPS OD SCH ×2 (08:47→20:15)
[2016-08-12] MEDS: BRIMONIDINE 0.2% OPHTH SOLUTION 5ML BOTTLE. OD SCH (08:48)
[2016-08-12] MEDS: ENOXAPARIN 40 MG/0.4 ML SYRINGE. SQ SCH ×2 (08:52→20:15)
--- NOTE | 2016-08-12 08:52 | PDOC ---
SURGICAL PROGRESS NOTE Subjective no flatus pain improved Vital Signs Vital Signs Date Time Temp Pulse Resp B/P (MAP) Pulse Ox O2 Delivery O2 Flow Rate FiO2 08/12/16 07:13 95 Nasal Cannula 2.0 08/12/16 07:00 98.1 103 22 143/68 (93) 98.1 I&O Intake and Output 08/12/16 07:00 Output Total 1825 ml Balance -1825 ml Output Urine Total 1625 ml Gastric Drainage Total 200 ml PATIENT HAS A STEWART: Yes (dc today ) General: Alert, Oriented X3, Cooperative, No acute distress HEENT: Other (ng bilious ) Abdomen: Soft, Other (incision c/d/i, no erythema ) Labs Laboratory Tests Test 08/10/16 12:27 08/10/16 16:57 08/10/16 20:51 08/11/16 07:20 Glucose (Fingerstick) 177 mg/dL (70-99) 246 mg/dL (70-99) 213 mg/dL (70-99) White Blood Count 16.9 x10^3/uL (4.0-11.0) Red Blood Count 3.83 x10^6/uL (3.50-5.40) Hemoglobin 11.1 g/dL (12.0-15.5) Hematocrit 33.9 % (36.0-47.0) Mean Corpuscular Volume 89 fL (79-100) Mean Corpuscular Hemoglobin 29 pg (25-35) Mean Corpuscular Hemoglobin Concent 33 g/dL (31-37) Red Cell Distribution Width 13.4 % (11.5-14.5) Platelet Count 263 x10^3/uL (140-400) Neutrophils (%) (Auto) 74 % (31-73) Lymphocytes (%) (Auto) 13 % (24-48) Monocytes (%) (Auto) 13 % (0-9) Eosinophils (%) (Auto) 0 % (0-3) Basophils (%) (Auto) 0 % (0-3) Neutrophils # (Auto) 12.6 x10^3uL (1.8-7.7) Lymphocytes # (Auto) 2.2 x10^3/uL (1.0-4.8) Monocytes # (Auto) 2.1 x10^3/uL (0.0-1.1) Eosinophils # (Auto) 0.0 x10^3/uL (0.0-0.7) Basophils # (Auto) 0.1 x10^3/uL (0.0-0.2) Segmented Neutrophils % 72 % (35-66) Band Neutrophils % 1 % (0-9) Lymphocytes % 19 % (24-48) Monocytes % 8 % (0-10) Platelet Estimate Adequate (ADEQUATE) Sodium Level 143 mmol/L (136-145) Potassium Level 4.5 mmol/L (3.5-5.1) Chloride Level 110 mmol/L (98-107) Carbon Dioxide Level 20 mmol/L (21-32) Anion Gap 13 (6-14) Blood Urea Nitrogen 24 mg/dL (7-20) Creatinine 1.2 mg/dL (0.6-1.0) Estimated GFR (Cockcroft-Gault) 45.2 Glucose Level 128 mg/dL (70-99) Calcium Level 7.6 mg/dL (8.5-10.1) Phosphorus Level 3.9 mg/dL (2.6-4.7) Magnesium Level 1.6 mg/dL (1.8-2.4) Triglycerides Level 126 mg/dL (0-150) Test 08/11/16 07:22 08/11/16 11:47 08/11/16 16:34 08/11/16 20:41 Glucose (Fingerstick) 167 mg/dL (70-99) 164 mg/dL (70-99) 183 mg/dL (70-99) 153 mg/dL (70-99) Test 08/12/16 04:45 08/12/16 07:45 Sodium Level 141 mmol/L (136-145) Potassium Level 4.3 mmol/L (3.5-5.1) Chloride Level 107 mmol/L (98-107) Carbon Dioxide Level 24 mmol/L (21-32) Anion Gap 10 (6-14) Blood Urea Nitrogen 21 mg/dL (7-20) Creatinine 0.8 mg/dL (0.6-1.0) Estimated GFR (Cockcroft-Gault) 72.2 Glucose Level 145 mg/dL (70-99) Calcium Level 8.1 mg/dL (8.5-10.1) Phosphorus Level 2.8 mg/dL (2.6-4.7) Magnesium Level 1.9 mg/dL (1.8-2.4) Glucose (Fingerstick) 169 mg/dL (70-99) Laboratory Tests Test 08/11/16 11:47 08/11/16 16:34 08/11/16 20:41 08/12/16 04:45 Glucose (Fingerstick) 164 mg/dL (70-99) 183 mg/dL (70-99) 153 mg/dL (70-99) Sodium Level 141 mmol/L (136-145) Potassium Level 4.3 mmol/L (3.5-5.1) Chloride Level 107 mmol/L (98-107) Carbon Dioxide Level 24 mmol/L (21-32) Anion Gap 10 (6-14) Blood Urea Nitrogen 21 mg/dL (7-20) Creatinine 0.8 mg/dL (0.6-1.0) Estimated GFR (Cockcroft-Gault) 72.2 Glucose Level 145 mg/dL (70-99) Calcium Level 8.1 mg/dL (8.5-10.1) Phosphorus Level 2.8 mg/dL (2.6-4.7) Magnesium Level 1.9 mg/dL (1.8-2.4) Test 08/12/16 07:45 Glucose (Fingerstick) 169 mg/dL (70-99) Assessment/Plan s/p xlap continue NG today, only 200cc drainage, consider clamping in AM dc stewart continue ambulating wbc 16.9, afebrile--recheck CBC in AM Problems: LUDMILA BROOKS APRN Aug 12, 2016 08:52
--- NOTE | 2016-08-12 09:52 | PDOC ---
Infectious Disease Note Subjective Subjective Feeling alright only a little uncomfortable. On ACADEMIC ASSISTANT NPO, on TPN No flatus yet ROS ROS GEN: Denies fevers, chills, sweats HEENT: Denies blurred vision CV: Denies chest pain RESP: Denies shortness of air, cough GI: Denies n/v/d NEURO: Denies confusion, dizziness MSK: Denies weakness, joint pain/swelling Vital Sign Vital Signs Vital Signs Date Time Temp Pulse Resp B/P (MAP) Pulse Ox O2 Delivery O2 Flow Rate FiO2 08/12/16 07:13 95 Nasal Cannula 2.0 08/12/16 07:00 98.1 103 22 143/68 (93) 98.1 Physical Exam PHYSICAL EXAM GENERAL: NAD, Alert HEENT: Right eye reactive, left eye blind, OC/OP- NGT NECK: Supple, no JVD, no LN LUNGS: Clear on 02 HEART: S1S2, no gallop, no murmur ABD: Distended. Dressing in place - clean. Decreased BS. 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: Alert, oriented x 3, no focal neurologic deficit SKIN: No rash IV: PICC - clean Labs Lab Laboratory Tests Test 08/11/16 11:47 08/11/16 16:34 08/11/16 20:41 08/12/16 04:45 Glucose (Fingerstick) 164 mg/dL (70-99) 183 mg/dL (70-99) 153 mg/dL (70-99) Sodium Level 141 mmol/L (136-145) Potassium Level 4.3 mmol/L (3.5-5.1) Chloride Level 107 mmol/L (98-107) Carbon Dioxide Level 24 mmol/L (21-32) Anion Gap 10 (6-14) Blood Urea Nitrogen 21 mg/dL (7-20) Creatinine 0.8 mg/dL (0.6-1.0) Estimated GFR (Cockcroft-Gault) 72.2 Glucose Level 145 mg/dL (70-99) Calcium Level 8.1 mg/dL (8.5-10.1) Phosphorus Level 2.8 mg/dL (2.6-4.7) Magnesium Level 1.9 mg/dL (1.8-2.4) Test 08/12/16 07:45 Glucose (Fingerstick) 169 mg/dL (70-99) Micro Micro ANAEROBIC-AEROBIC CULTURE Final Final report ANAEROBIC RES 1 Final Comment No anaerobic growth in 72 hours. AEROBIC RES 1 Final Proteus mirabilis AEROBIC RES 2 Final Enterococcus faecalis AEROBIC RES 3 Final Enterococcus faecalis Antibiotic RSLT#1 RSLT#2 RSLT#3 Amoxicillin/Clavulanic Acid S Ampicillin S Cefepime S Ceftriaxone S Cefuroxime S Ciprofloxacin S Ertapenem S Gentamicin S Levofloxacin S Penicillin S S Piperacillin S Tetracycline R Tobramycin S Trimethoprim/Sulfa S Vancomycin S S Objective Assessment EC fistula. Proteus and E. faecalis x 2 ampS, yeast. S/p repair 08/10 Leukocytosis - post op Cellulitis/irritation by bile leak. Hernia surgery 2 yrs ago with mesh DM Subdural hematoma Plan Plan of Care Zosyn and Diflucan NPO F/u Labs ordered for am D/w MARII PRINCE MD Aug 12, 2016 09:51
--- NOTE | 2016-08-12 09:54 | PDOC ---
PROGRESS NOTES Subjective Subjective no new issues Objective Objective Vital Signs Date Time Temp Pulse Resp B/P (MAP) Pulse Ox O2 Delivery O2 Flow Rate FiO2 08/12/16 07:13 95 Nasal Cannula 2.0 08/12/16 07:00 98.1 103 22 143/68 (93) 98.1 Intake and Output 08/12/16 07:00 Output Total 1825 ml Balance -1825 ml Output Urine Total 1625 ml Gastric Drainage Total 200 ml Physical Exam Abdomen: Soft, Other (incision c/d/i, no erythema ) Heart: Regular rate, Normal S1, Normal S2 Extremities: No clubbing General: Alert, Oriented X3, Cooperative, No acute distress HEENT: Other (ng bilious ) Lungs: Clear to auscultation MUSCULOSKELETAL: No deformity Neck: Supple Neuro: Normal speech Psych/Mental Status: Mental status NL COMMENT dressings abd wall, NGT Assessment Assessment FINAL IMPRESSION: 1. Enterocutaneous fistula. 2. Drainage from the umbilicus with surrounding maceration, erythema of the abdominal wall. 3. History of abdominal surgery for hernia with? mesh, 3 years ago. 4. History of cerebrovascular accident and subdural hematoma in the past. 5. Chronic obstructive pulmonary disease, smoker. PLAN: POD #2.. PROCEDURE: Exploratory laparotomy, lysis of adhesion, small-bowel resection, removal of mesh, ventral incisional hernia repair, and debridement of abdominal wall. surgery done for EC fistula monitor labs on TPN.labs good. NPO for now. s/p picc line placed iv antibiotics Zosyn+Diflucan. 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 labs in am Problems: Comment Review of Relevant I have reviewed the following items ranulfo (where applicable) has been applied. Labs Laboratory Tests Test 08/11/16 11:47 08/11/16 16:34 08/11/16 20:41 08/12/16 04:45 Glucose (Fingerstick) 164 mg/dL (70-99) 183 mg/dL (70-99) 153 mg/dL (70-99) Sodium Level 141 mmol/L (136-145) Potassium Level 4.3 mmol/L (3.5-5.1) Chloride Level 107 mmol/L (98-107) Carbon Dioxide Level 24 mmol/L (21-32) Anion Gap 10 (6-14) Blood Urea Nitrogen 21 mg/dL (7-20) Creatinine 0.8 mg/dL (0.6-1.0) Estimated GFR (Cockcroft-Gault) 72.2 Glucose Level 145 mg/dL (70-99) Calcium Level 8.1 mg/dL (8.5-10.1) Phosphorus Level 2.8 mg/dL (2.6-4.7) Magnesium Level 1.9 mg/dL (1.8-2.4) Test 08/12/16 07:45 Glucose (Fingerstick) 169 mg/dL (70-99) Microbiology 08/02/16 Gram Stain - Final, Complete Medications Current Medications Sodium Acetate 50 meq/Potassium Chloride 50 meq/ Potassium Phosphate 13.6 mmol/ Magnesium Sulfate 10 meq/ Calcium Gluconate 15 meq/ Multivitamins 10 ml/Chromium / Copper/Manganese/ Seleni/Zn 1 ml/ Total Parenteral Nutrition/Amino Acids/ Dextrose/ Fat Emulsion Intravenous 1,512 ml @ 63 mls/hr TPN CONT IV Last administered on 08/11/16 21:10; Start 08/11/16 at 22:00; Stop 08/12/16 at 21:59 Sodium Chloride 500 ml @ 25 mls/hr Q20H IV Last administered on 08/12/16 08:46 ; Start 08/12/16 at 07:30 Vitals/I & O Vital Sign - Last 24 Hours 08/11/16 08/11/16 08/11/16 08/11/16 11:00 12:01 14:51 15:30 Temp 98.2 98.8 98.2 98.8 Pulse 89 102 Resp 20 24 B/P (MAP) 134/74 (94) 119/58 (78) Pulse Ox 94 95 93 O2 Delivery Room Air Nasal Cannula Nasal Cannula Nasal Cannula O2 Flow Rate 2.0 2.0 2.0 08/11/16 08/11/16 08/11/16 08/12/16 19:00 19:37 23:06 03:00 Temp 98.0 97.8 97.9 98.0 97.8 97.9 Pulse 96 91 97 Resp 18 20 20 B/P (MAP) 147/55 (85) 148/61 (90) 147/63 (91) Pulse Ox 94 95 95 94 O2 Delivery Nasal Cannula Nasal Cannula Nasal Cannula Nasal Cannula O2 Flow Rate 2.0 2.0 2.0 2.0 08/12/16 08/12/16 07:00 07:13 Temp 98.1 98.1 Pulse 103 Resp 22 B/P (MAP) 143/68 (93) Pulse Ox 95 95 O2 Delivery Nasal Cannula Nasal Cannula O2 Flow Rate 2.0 2.0 Intake and Output 08/11/16 08/11/16 08/12/16 15:00 23:00 07:00 Output Total 450 ml 275 ml 1100 ml Balance -450 ml -275 ml -1100 ml CHRISTOPH LE MD Aug 12, 2016 09:54
[2016-08-12] MEDS: TPN PER PHARMACY MC PRN ×2 (10:37→10:43)
[2016-08-12 11:00] VITALS: BP 109/64
[2016-08-12 15:00] VITALS: BP 136/74
--- NOTE | 2016-08-12 15:48 | PATHOLOGY ---
PATHOLOGY REPORT * * * * * * * * FINAL DIAGNOSIS: Segment of small intestine with attached skin and subcutaneous tissue containing mesh material and detached segment of mesh material, ventral incisional hernia repair with removal of graft, abdominal wall debridement, and small bowel resection: - Enterocutaneous fistula. - Enteric/enteric, enteric/abdominal wall, and enteric/mesh adhesions. - Status-post ventral hernia repair with mesh. (JPM:mgr; d/t: 08/12/16) REPORT ELECTRONICALLY SIGNED BY: Christopher Barroso M.D. DATE/TIME: 08/12/2016 15:47 * * * * * * * * GROSS PATHOLOGY: The specimen is received in formalin, labeled "Benjamín, enterocutaneous fistula", and consists of a markedly tortuous segment of small bowel (72 cm in length 2.5 cm in diameter), attached ellipse of henson skin (12 3 cm), underlying subcutis, attached mesh material (26 15 0.2 cm) and detached portion of mesh material (13 10 0.2 cm) having an aggregate weight of 899 g. The small bowel segment has multiple loops adherent to each other and the adjacent mesh material with numerous fibrous adhesions. The bowel lumen appears patent but the bowel wall has several scattered kinked regions associated with tortuosity of the bowel segment and stenosis of the lumen. The skin surface is mottled regan-henson with some scattered granular red-brown areas and a central longitudinal sulcus measuring 7 cm in length. Within the sulcus is an opening to the skin surface measuring 1-2 mm located 4 cm from one apex of the ellipse. The opening is contiguous with an underlying fistula tract area extending into the deep soft tissues which appears contiguous with an opening in the small bowel wall measuring 1-2 mm in diameter. The opening in the bowel wall is located 26 cm from the closest bowel end resection margin. The fistula tract measures about 7 cm in length. Portions of the fistula tract are marked with blue dye near the skin surface and near the deep aspect with orange dye. The tract-like area appears to extend between portions of the bowel wall and the adjacent adherent mesh. The bowel mucosa is without polyps or mass lesions. Attached mesenteric soft tissue is without obvious lymph nodes. A detached fragment of mesh material has similar adherent fibrofatty tissue and several fibrous adhesions and scattered hemorrhagic areas. Educational Programming Director sections are submitted as follows: En face section of bowel resection margin closest to fistula tract A1, en face section of opposite bowel end resection margin A2, tract-like area near skin surface (inked blue) A3-A4, perpendicular sections of skin margins (black) adjacent to sinus tract A5, opening in bowel wall and adjacent tract-like area (inked orange) A6, bowel wall and adherent mesh A7, other sections of bowel wall away from fistula tract A8 and mesentery A9. ([facility]; 08/11/2016) INITIAL CPT CODE(S): 60067 Professional services [place] [address] Technical services performed by [facility] at [address] [place] [address], [address], [place] [address]. SPECIMEN(S) RECEIVED: A.Enterocutaneous fistula CLINICAL HISTORY: Enterocutaneous fistula PATIENT: KAYE BATISTAAna Paula Huntley /AGE: 7 1950 (Age: 65) PATIENT #: [id number] ALT CASE #: SPECIMEN COLLECTION DATE: 08/10/2016 SPECIMEN RECEIVED DATE: 08/10/2016 [facility] - [id number] [place] [address] - PHONE: [phone] * * * END OF REPORT * * *
[2016-08-12] MEDS: FLUCONAZOLE 200MG/100ML PREMIX 100 ML IV SCH (16:46)
[2016-08-12 19:00] VITALS: BP 158/75
[2016-08-12] MEDS ORDERED: AMINO ACIDS IV SCH ×11 (22:00)
[2016-08-12] MEDS ORDERED: DEXTROSE 70% IV SCH ×11 (22:00)
[2016-08-12] MEDS ORDERED: TOTAL PARENTERAL NUTRITION IV SCH ×11 (22:00)
[2016-08-12] MEDS ORDERED: [UNRECOGNIZED DRUG - OTHER] IV SCH ×11 (22:00)
[2016-08-12 23:00] VITALS: BP 157/58
[2016-08-13 03:00] VITALS: BP 169/52
[2016-08-13] MEDS: IV NORMAL SALINE 500ML BAG 500 ML IV SCH ×2 (03:30→22:53)
[2016-08-13] MEDS: PIPERACILLIN/TAZOBACTAM 3.375 GM in IV NORMAL SALINE 50ML 50 ML IV SCH ×3 (05:37→17:12)
[2016-08-13 05:53] LABS: BASO # 0.1 x10^3/uL (0.0-0.2); BASO % 1 % (0-3); EOS % 3 % (0-3); HEMATOCRIT 26.3 % (36.0-47.0); HEMOGLOBIN 9.2 g/dL (12.0-15.5); LYMPH # 1.7 x10^3/uL (1.0-4.8); LYMPH % 15 % (24-48); MEAN CORPUSCULAR HEMOGLOBIN 30 pg (25-35); MEAN CORPUSCULAR HGB CONC 35 g/dL (31-37); MEAN CORPUSCULAR VOLUME 86 fL (79-100); MONO % 11 % (0-9); NEUT % 71 % (31-73); PLATELET COUNT 235 x10^3/uL (140-400); RED BLOOD COUNT 3.05 x10^6/uL (3.50-5.40); RED CELL DISTRIBUTION WIDTH 13.3 % (11.5-14.5); WHITE BLOOD COUNT 11.6 x10^3/uL (4.0-11.0)
[2016-08-13 06:15] LABS: CREATININE 0.7 mg/dL (0.6-1.0); GFR 84.2; MAGNESIUM 1.6 mg/dL (1.8-2.4); PHOSPHORUS 3.3 mg/dL (2.6-4.7); POTASSIUM 4.1 mmol/L (3.5-5.1)
[2016-08-13 07:00] VITALS: BP 154/72
[2016-08-13] MEDS: ALBUTEROL SULFATE 2.5 MG/3 ML NEBU. NEB SCH ×4 (07:24→20:10)
[2016-08-13] MEDS: GLIMEPIRIDE 2 MG TABLET. PO SCH (09:00)
[2016-08-13] MEDS: AMITRIPTYLINE HCL 10 MG TABLET. PO SCH (09:00)
[2016-08-13] MEDS: predniSONE 20 MG TABLET PO SCH (09:00)
[2016-08-13] MEDS: COMBIGAN EYE DROPS OD SCH ×2 (09:00→20:21)
[2016-08-13] MEDS: BENZONATATE 100 MG CAPSULE. PO SCH ×3 (09:00→20:21)
[2016-08-13] MEDS: PANTOPRAZOLE IV PUSH 40 MG VIAL. IVP SCH (09:04)
[2016-08-13] MEDS: ENOXAPARIN 40 MG/0.4 ML SYRINGE. SQ SCH ×2 (09:04→20:22)
[2016-08-13] MEDS: BRIMONIDINE 0.2% OPHTH SOLUTION 5ML BOTTLE. OD SCH (09:05)
[2016-08-13] MEDS: LUMIGAN EYE DROPS OD SCH (09:05)
[2016-08-13] MEDS: INSULIN ASPART 300 UNITS/3 ML INSULN.PEN SQ SCH ×3 (09:11→17:11)
--- NOTE | 2016-08-13 09:45 | PDOC ---
SURGICAL PROGRESS NOTE Subjective pain managed minimal ng output-150cc/24hrs no flatus yet Vital Signs Vital Signs Date Time Temp Pulse Resp B/P (MAP) Pulse Ox O2 Delivery O2 Flow Rate FiO2 08/13/16 07:24 97 Nasal Cannula 2.0 08/13/16 07:00 97.8 97 20 154/72 (99) 97.8 I&O Intake and Output 08/13/16 07:00 Intake Total 697 ml Output Total 500 ml Balance 197 ml Intake Oral 0 ml IV Total 697 ml Output Urine Total 450 ml Gastric Drainage Total 50 ml # Voids 2 General: Alert, Oriented X3, Cooperative, No acute distress HEENT: Other (ng-tannish drainage ) Abdomen: Soft, Other (ND, dressing dry ) Labs Laboratory Tests Test 08/11/16 11:47 08/11/16 16:34 08/11/16 20:41 08/12/16 04:45 Glucose (Fingerstick) 164 mg/dL (70-99) 183 mg/dL (70-99) 153 mg/dL (70-99) Sodium Level 141 mmol/L (136-145) Potassium Level 4.3 mmol/L (3.5-5.1) Chloride Level 107 mmol/L (98-107) Carbon Dioxide Level 24 mmol/L (21-32) Anion Gap 10 (6-14) Blood Urea Nitrogen 21 mg/dL (7-20) Creatinine 0.8 mg/dL (0.6-1.0) Estimated GFR (Cockcroft-Gault) 72.2 Glucose Level 145 mg/dL (70-99) Calcium Level 8.1 mg/dL (8.5-10.1) Phosphorus Level 2.8 mg/dL (2.6-4.7) Magnesium Level 1.9 mg/dL (1.8-2.4) Test 08/12/16 07:45 08/12/16 10:58 08/12/16 16:08 08/12/16 20:36 Glucose (Fingerstick) 169 mg/dL (70-99) 165 mg/dL (70-99) 163 mg/dL (70-99) 137 mg/dL (70-99) Test 08/13/16 05:40 08/13/16 07:54 White Blood Count 11.6 x10^3/uL (4.0-11.0) Red Blood Count 3.05 x10^6/uL (3.50-5.40) Hemoglobin 9.2 g/dL (12.0-15.5) Hematocrit 26.3 % (36.0-47.0) Mean Corpuscular Volume 86 fL (79-100) Mean Corpuscular Hemoglobin 30 pg (25-35) Mean Corpuscular Hemoglobin Concent 35 g/dL (31-37) Red Cell Distribution Width 13.3 % (11.5-14.5) Platelet Count 235 x10^3/uL (140-400) Neutrophils (%) (Auto) 71 % (31-73) Lymphocytes (%) (Auto) 15 % (24-48) Monocytes (%) (Auto) 11 % (0-9) Eosinophils (%) (Auto) 3 % (0-3) Basophils (%) (Auto) 1 % (0-3) Neutrophils # (Auto) 8.2 x10^3uL (1.8-7.7) Lymphocytes # (Auto) 1.7 x10^3/uL (1.0-4.8) Monocytes # (Auto) 1.3 x10^3/uL (0.0-1.1) Eosinophils # (Auto) 0.3 x10^3/uL (0.0-0.7) Basophils # (Auto) 0.1 x10^3/uL (0.0-0.2) Sodium Level 137 mmol/L (136-145) Potassium Level 4.1 mmol/L (3.5-5.1) Chloride Level 103 mmol/L (98-107) Carbon Dioxide Level 25 mmol/L (21-32) Anion Gap 9 (6-14) Blood Urea Nitrogen 14 mg/dL (7-20) Creatinine 0.7 mg/dL (0.6-1.0) Estimated GFR (Cockcroft-Gault) 84.2 Glucose Level 158 mg/dL (70-99) Calcium Level 8.0 mg/dL (8.5-10.1) Phosphorus Level 3.3 mg/dL (2.6-4.7) Magnesium Level 1.6 mg/dL (1.8-2.4) Glucose (Fingerstick) 156 mg/dL (70-99) Laboratory Tests Test 08/12/16 10:58 08/12/16 16:08 08/12/16 20:36 08/13/16 05:40 Glucose (Fingerstick) 165 mg/dL (70-99) 163 mg/dL (70-99) 137 mg/dL (70-99) White Blood Count 11.6 x10^3/uL (4.0-11.0) Red Blood Count 3.05 x10^6/uL (3.50-5.40) Hemoglobin 9.2 g/dL (12.0-15.5) Hematocrit 26.3 % (36.0-47.0) Mean Corpuscular Volume 86 fL (79-100) Mean Corpuscular Hemoglobin 30 pg (25-35) Mean Corpuscular Hemoglobin Concent 35 g/dL (31-37) Red Cell Distribution Width 13.3 % (11.5-14.5) Platelet Count 235 x10^3/uL (140-400) Neutrophils (%) (Auto) 71 % (31-73) Lymphocytes (%) (Auto) 15 % (24-48) Monocytes (%) (Auto) 11 % (0-9) Eosinophils (%) (Auto) 3 % (0-3) Basophils (%) (Auto) 1 % (0-3) Neutrophils # (Auto) 8.2 x10^3uL (1.8-7.7) Lymphocytes # (Auto) 1.7 x10^3/uL (1.0-4.8) Monocytes # (Auto) 1.3 x10^3/uL (0.0-1.1) Eosinophils # (Auto) 0.3 x10^3/uL (0.0-0.7) Basophils # (Auto) 0.1 x10^3/uL (0.0-0.2) Sodium Level 137 mmol/L (136-145) Potassium Level 4.1 mmol/L (3.5-5.1) Chloride Level 103 mmol/L (98-107) Carbon Dioxide Level 25 mmol/L (21-32) Anion Gap 9 (6-14) Blood Urea Nitrogen 14 mg/dL (7-20) Creatinine 0.7 mg/dL (0.6-1.0) Estimated GFR (Cockcroft-Gault) 84.2 Glucose Level 158 mg/dL (70-99) Calcium Level 8.0 mg/dL (8.5-10.1) Phosphorus Level 3.3 mg/dL (2.6-4.7) Magnesium Level 1.6 mg/dL (1.8-2.4) Test 08/13/16 07:54 Glucose (Fingerstick) 156 mg/dL (70-99) Problem List s/p xlap clamp ng continue activity wbc down to 11.6 Problems: LUDMILA BROOKS APRN Aug 13, 2016 09:45
--- NOTE | 2016-08-13 09:58 | PDOC ---
PROGRESS NOTES Subjective Subjective no complaints Objective Objective Vital Signs Date Time Temp Pulse Resp B/P (MAP) Pulse Ox O2 Delivery O2 Flow Rate FiO2 08/13/16 07:24 97 Nasal Cannula 2.0 08/13/16 07:00 97.8 97 20 154/72 (99) 97.8 Intake and Output 08/13/16 07:00 Intake Total 697 ml Output Total 500 ml Balance 197 ml Intake Oral 0 ml IV Total 697 ml Output Urine Total 450 ml Gastric Drainage Total 50 ml # Voids 2 Physical Exam Abdomen: Soft, Other (ND, dressing dry ) Heart: Regular rate, Normal S1, Normal S2 Extremities: No clubbing General: Alert, Oriented X3, Cooperative, No acute distress HEENT: Other (ng-tannish drainage ) Lungs: Clear to auscultation MUSCULOSKELETAL: No deformity Neck: Supple Neuro: Normal speech Psych/Mental Status: Mental status NL COMMENT dressings abd wall, NGT, BUSINESS PERFORMANCE ANALYST and TPN Assessment Assessment FINAL IMPRESSION: 1. Enterocutaneous fistula. 2. Drainage from the umbilicus with surrounding maceration, erythema of the abdominal wall. 3. History of abdominal surgery for hernia with? mesh, 3 years ago. 4. History of cerebrovascular accident and subdural hematoma in the past. 5. Chronic obstructive pulmonary disease, smoker. PLAN: POD #3.. PROCEDURE: Exploratory laparotomy, lysis of adhesion, small-bowel resection, removal of mesh, ventral incisional hernia repair, and debridement of abdominal wall. surgery done for EC fistula monitor labs on TPN.labs good. NPO for now. s/p picc line placed iv antibiotics Zosyn+Diflucan. BUSINESS PERFORMANCE ANALYST for pain control . labs-wbc normal Problems: Comment Review of Relevant I have reviewed the following items ranulfo (where applicable) has been applied. Labs Laboratory Tests Test 08/12/16 10:58 08/12/16 16:08 08/12/16 20:36 08/13/16 05:40 Glucose (Fingerstick) 165 mg/dL (70-99) 163 mg/dL (70-99) 137 mg/dL (70-99) White Blood Count 11.6 x10^3/uL (4.0-11.0) Red Blood Count 3.05 x10^6/uL (3.50-5.40) Hemoglobin 9.2 g/dL (12.0-15.5) Hematocrit 26.3 % (36.0-47.0) Mean Corpuscular Volume 86 fL (79-100) Mean Corpuscular Hemoglobin 30 pg (25-35) Mean Corpuscular Hemoglobin Concent 35 g/dL (31-37) Red Cell Distribution Width 13.3 % (11.5-14.5) Platelet Count 235 x10^3/uL (140-400) Neutrophils (%) (Auto) 71 % (31-73) Lymphocytes (%) (Auto) 15 % (24-48) Monocytes (%) (Auto) 11 % (0-9) Eosinophils (%) (Auto) 3 % (0-3) Basophils (%) (Auto) 1 % (0-3) Neutrophils # (Auto) 8.2 x10^3uL (1.8-7.7) Lymphocytes # (Auto) 1.7 x10^3/uL (1.0-4.8) Monocytes # (Auto) 1.3 x10^3/uL (0.0-1.1) Eosinophils # (Auto) 0.3 x10^3/uL (0.0-0.7) Basophils # (Auto) 0.1 x10^3/uL (0.0-0.2) Sodium Level 137 mmol/L (136-145) Potassium Level 4.1 mmol/L (3.5-5.1) Chloride Level 103 mmol/L (98-107) Carbon Dioxide Level 25 mmol/L (21-32) Anion Gap 9 (6-14) Blood Urea Nitrogen 14 mg/dL (7-20) Creatinine 0.7 mg/dL (0.6-1.0) Estimated GFR (Cockcroft-Gault) 84.2 Glucose Level 158 mg/dL (70-99) Calcium Level 8.0 mg/dL (8.5-10.1) Phosphorus Level 3.3 mg/dL (2.6-4.7) Magnesium Level 1.6 mg/dL (1.8-2.4) Test 08/13/16 07:54 Glucose (Fingerstick) 156 mg/dL (70-99) Microbiology 08/02/16 Gram Stain - Final, Complete Medications Current Medications Sodium Acetate 50 meq/Sodium Phosphate 10 mmol/ Potassium Chloride 50 meq/ Potassium Phosphate 13.6 mmol/Magnesium Sulfate 10 meq/ Calcium Gluconate 8 meq / Multivitamins 10 ml/Chromium/ Copper/Manganese/ Seleni/Zn 1 ml/ Total Parenteral Nutrition/Amino Acids/Dextrose/ Fat Emuls... 1,512 ml @ 63 mls/hr TPN CONT IV Last administered on 08/12/16t 20:50; Start 08/12/16 at 22:00; Stop 08/13/16 at 21:59 Vitals/I & O Vital Sign - Last 24 Hours 08/12/16 08/12/16 08/12/16 08/12/16 11:00 11:13 15:00 15:07 Temp 97.9 98.6 97.9 98.6 Pulse 96 101 Resp B/P (MAP) 109/64 (79) 136/74 (94) Pulse Ox 94 95 O2 Delivery Room Air Nasal Cannula Nasal Cannula Nasal Cannula O2 Flow Rate 2.0 2.0 2.0 08/12/16 08/12/16 08/12/16 08/12/16 19:00 19:49 19:49 23:00 Temp 98.7 97.2 98.7 97.2 Pulse 93 93 Resp 20 18 B/P (MAP) 158/75 (102) 157/58 (91) Pulse Ox 100 99 95 O2 Delivery Nasal Cannula Nasal Cannula Nasal Cannula Nasal Cannula O2 Flow Rate 2.0 2.0 4.0 2.0 08/13/16 08/13/16 08/13/16 08/13/16 02:44 03:00 07:00 07:24 Temp 97.3 97.8 97.3 97.8 Pulse 91 97 Resp 20 B/P (MAP) 169/52 (91) 154/72 (99) Pulse Ox 93 96 97 O2 Delivery Nasal Cannula Nasal Cannula Nasal Cannula Nasal Cannula O2 Flow Rate 2.0 2.0 2.0 2.0 Intake and Output 08/12/16 08/12/16 08/13/16 15:00 23:00 07:00 Intake Total 697 ml Output Total 500 ml Balance 197 ml CHRISTOPH LE MD Aug 13, 2016 09:58
[2016-08-13 11:00] VITALS: BP 127/72
[2016-08-13] MEDS: TPN PER PHARMACY MC PRN (12:53)
--- NOTE | 2016-08-13 13:10 | PDOC ---
Infectious Disease Note Subjective Subjective Feeling comfortable, NPO, on TPN + BM since surgery Ambulated earlier ROS ROS GEN: Denies fevers, chills, sweats CV: Denies chest pain RESP: Denies shortness of air, cough GI: Denies n/v/d Vital Sign Vital Signs Vital Signs Date Time Temp Pulse Resp B/P (MAP) Pulse Ox O2 Delivery O2 Flow Rate FiO2 08/13/16 12:01 99 Nasal Cannula 2.0 08/13/16 11:00 97.9 88 18 127/72 (90) 97.9 Physical Exam PHYSICAL EXAM GENERAL: Propped up in bed, NAD HEENT: Right eye reactive, (left eye blind). Edentulous. Dry. NGT NECK: Supple, no JVD, no LN LUNGS: Clear HEART: S1S2, no gallop, no murmur ABD: Obese, BS present, soft, NT. 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 (08/05). clean Labs Lab Laboratory Tests Test 08/12/16 16:08 08/12/16 20:36 08/13/16 05:40 08/13/16 07:54 Glucose (Fingerstick) 163 mg/dL (70-99) 137 mg/dL (70-99) 156 mg/dL (70-99) White Blood Count 11.6 x10^3/uL (4.0-11.0) Red Blood Count 3.05 x10^6/uL (3.50-5.40) Hemoglobin 9.2 g/dL (12.0-15.5) Hematocrit 26.3 % (36.0-47.0) Mean Corpuscular Volume 86 fL (79-100) Mean Corpuscular Hemoglobin 30 pg (25-35) Mean Corpuscular Hemoglobin Concent 35 g/dL (31-37) Red Cell Distribution Width 13.3 % (11.5-14.5) Platelet Count 235 x10^3/uL (140-400) Neutrophils (%) (Auto) 71 % (31-73) Lymphocytes (%) (Auto) 15 % (24-48) Monocytes (%) (Auto) 11 % (0-9) Eosinophils (%) (Auto) 3 % (0-3) Basophils (%) (Auto) 1 % (0-3) Neutrophils # (Auto) 8.2 x10^3uL (1.8-7.7) Lymphocytes # (Auto) 1.7 x10^3/uL (1.0-4.8) Monocytes # (Auto) 1.3 x10^3/uL (0.0-1.1) Eosinophils # (Auto) 0.3 x10^3/uL (0.0-0.7) Basophils # (Auto) 0.1 x10^3/uL (0.0-0.2) Sodium Level 137 mmol/L (136-145) Potassium Level 4.1 mmol/L (3.5-5.1) Chloride Level 103 mmol/L (98-107) Carbon Dioxide Level 25 mmol/L (21-32) Anion Gap 9 (6-14) Blood Urea Nitrogen 14 mg/dL (7-20) Creatinine 0.7 mg/dL (0.6-1.0) Estimated GFR (Cockcroft-Gault) 84.2 Glucose Level 158 mg/dL (70-99) Calcium Level 8.0 mg/dL (8.5-10.1) Phosphorus Level 3.3 mg/dL (2.6-4.7) Magnesium Level 1.6 mg/dL (1.8-2.4) Test 08/13/16 11:12 Glucose (Fingerstick) 155 mg/dL (70-99) Micro ANAEROBIC-AEROBIC CULTURE Final Final report ANAEROBIC RES 1 Final Comment No anaerobic growth in 72 hours. AEROBIC RES 1 Final Proteus mirabilis AEROBIC RES 2 Final Enterococcus faecalis AEROBIC RES 3 Final Enterococcus faecalis Antibiotic RSLT#1 RSLT#2 RSLT#3 Amoxicillin/Clavulanic Acid S Ampicillin S Cefepime S Ceftriaxone S Cefuroxime S Ciprofloxacin S Ertapenem S Gentamicin S Levofloxacin S Penicillin S S Piperacillin S Tetracycline R Tobramycin S Trimethoprim/Sulfa S Vancomycin S S Objective Assessment EC fistula. Proteus and E. faecalis x 2 ampS, yeast s/p Expl lap, MACIEL, small-bowel resection, removal of mesh, ventral incisional hernia repair, and debridement of abdominal wall, 08/10 Leukocytosis, post-op, better Cellulitis/irritation by bile leak. Hernia surgery 2 yrs ago with mesh DM Subdural hematoma Plan Plan of Care Homer and Edlucan NPO F/u Labs am Incentive spirometry PT/OT Attending Co-Sign The patient was seen and interviewed as well as examined at the bedside. The chart was reviewed. The case was discussed. Agree with the plan of care. CAMERON VILA APRN Aug 13, 2016 13:10 MARIIA LAURENT MD Aug 13, 2016 15:05
[2016-08-13 15:00] VITALS: BP 149/71
[2016-08-13] MEDS: FLUCONAZOLE 200MG/100ML PREMIX 100 ML IV SCH (17:07)
[2016-08-13 19:57] VITALS: BP 158/76
[2016-08-13] MEDS ORDERED: [UNRECOGNIZED DRUG - OTHER] IV SCH ×11 (22:00)
[2016-08-13] MEDS ORDERED: DEXTROSE 70% IV SCH ×11 (22:00)
[2016-08-13] MEDS ORDERED: TOTAL PARENTERAL NUTRITION IV SCH ×11 (22:00)
[2016-08-13] MEDS ORDERED: AMINO ACIDS IV SCH ×11 (22:00)
[2016-08-13 23:08] VITALS: BP 151/65
[2016-08-14] MEDS: PIPERACILLIN/TAZOBACTAM 3.375 GM in IV NORMAL SALINE 50ML 50 ML IV SCH ×3 (01:05→12:06)
[2016-08-14 03:06] VITALS: BP 150/81
[2016-08-14] MEDS: PANTOPRAZOLE IV PUSH 40 MG VIAL. IVP SCH (05:42)
[2016-08-14 06:25] LABS: CALCIUM 8.3 mg/dL (8.5-10.1); CREATININE 0.8 mg/dL (0.6-1.0); GFR 72.2
[2016-08-14 07:00] VITALS: BP 152/79
[2016-08-14] MEDS: ALBUTEROL SULFATE 2.5 MG/3 ML NEBU. NEB SCH ×4 (07:28→21:07)
[2016-08-14] MEDS: INSULIN ASPART 300 UNITS/3 ML INSULN.PEN SQ SCH ×3 (07:51→16:43)
[2016-08-14] MEDS: AMITRIPTYLINE HCL 10 MG TABLET. PO SCH (08:51)
[2016-08-14] MEDS: BENZONATATE 100 MG CAPSULE. PO SCH ×3 (08:51→21:00)
[2016-08-14] MEDS: BRIMONIDINE 0.2% OPHTH SOLUTION 5ML BOTTLE. OD SCH (08:52)
[2016-08-14] MEDS: GLIMEPIRIDE 2 MG TABLET. PO SCH (08:52)
[2016-08-14] MEDS: LUMIGAN EYE DROPS OD SCH (08:53)
[2016-08-14] MEDS: predniSONE 20 MG TABLET PO SCH (08:53)
[2016-08-14] MEDS: COMBIGAN EYE DROPS OD SCH ×2 (08:53→21:00)
[2016-08-14] MEDS: ENOXAPARIN 40 MG/0.4 ML SYRINGE. SQ SCH ×2 (08:57→21:15)
[2016-08-14 11:00] VITALS: BP 129/65
--- NOTE | 2016-08-14 11:08 | PDOC ---
IM PROGRESS NOTES- Subjective Subjective No c/o pain,dyspnea. Objective Vitals Vital Signs Date Time Temp Pulse Resp B/P (MAP) Pulse Ox O2 Delivery O2 Flow Rate FiO2 08/14/16 08:08 Room Air 08/14/16 07:00 98.2 92 22 152/79 (103) 96 98.2 08/14/16 03:06 2.0 Input & Output Intake and Output 08/14/16 07:00 Intake Total 1244.25 ml Balance 1244.25 ml Intake Oral 0 ml IV Total 1244.25 ml # Voids 9 # Bowel Movements 1 Physical Exam Physical Exam Alert,oriented,in NAD Heart: Regular rate, Normal S1, Normal S2 Extremities: No clubbing General: Alert, Oriented X3, Cooperative, No acute distress HEENT: Other (ng-tannish drainage ) Lungs: Clear to auscultation Abdomen: Soft, Other (ND, dressing dry ) MUSCULOSKELETAL: No deformity Neck: Supple Neuro: Normal speech Psych/Mental Status: Mental status NL Dressings abd wall, NGT, DOCK HAND and TPN Labs Laboratory Tests Test 08/12/16 16:08 08/12/16 20:36 08/13/16 05:40 08/13/16 07:54 Glucose (Fingerstick) 163 mg/dL (70-99) 137 mg/dL (70-99) 156 mg/dL (70-99) White Blood Count 11.6 x10^3/uL (4.0-11.0) Red Blood Count 3.05 x10^6/uL (3.50-5.40) Hemoglobin 9.2 g/dL (12.0-15.5) Hematocrit 26.3 % (36.0-47.0) Mean Corpuscular Volume 86 fL (79-100) Mean Corpuscular Hemoglobin 30 pg (25-35) Mean Corpuscular Hemoglobin Concent 35 g/dL (31-37) Red Cell Distribution Width 13.3 % (11.5-14.5) Platelet Count 235 x10^3/uL (140-400) Neutrophils (%) (Auto) 71 % (31-73) Lymphocytes (%) (Auto) 15 % (24-48) Monocytes (%) (Auto) 11 % (0-9) Eosinophils (%) (Auto) 3 % (0-3) Basophils (%) (Auto) 1 % (0-3) Neutrophils # (Auto) 8.2 x10^3uL (1.8-7.7) Lymphocytes # (Auto) 1.7 x10^3/uL (1.0-4.8) Monocytes # (Auto) 1.3 x10^3/uL (0.0-1.1) Eosinophils # (Auto) 0.3 x10^3/uL (0.0-0.7) Basophils # (Auto) 0.1 x10^3/uL (0.0-0.2) Sodium Level 137 mmol/L (136-145) Potassium Level 4.1 mmol/L (3.5-5.1) Chloride Level 103 mmol/L (98-107) Carbon Dioxide Level 25 mmol/L (21-32) Anion Gap 9 (6-14) Blood Urea Nitrogen 14 mg/dL (7-20) Creatinine 0.7 mg/dL (0.6-1.0) Estimated GFR (Cockcroft-Gault) 84.2 Glucose Level 158 mg/dL (70-99) Calcium Level 8.0 mg/dL (8.5-10.1) Phosphorus Level 3.3 mg/dL (2.6-4.7) Magnesium Level 1.6 mg/dL (1.8-2.4) Test 08/13/16 11:12 08/13/16 16:19 08/13/16 20:50 08/14/16 05:45 Glucose (Fingerstick) 155 mg/dL (70-99) 153 mg/dL (70-99) 149 mg/dL (70-99) Sodium Level 141 mmol/L (136-145) Potassium Level 4.0 mmol/L (3.5-5.1) Chloride Level 106 mmol/L (98-107) Carbon Dioxide Level 29 mmol/L (21-32) Anion Gap 6 (6-14) Blood Urea Nitrogen 13 mg/dL (7-20) Creatinine 0.8 mg/dL (0.6-1.0) Estimated GFR (Cockcroft-Gault) 72.2 Glucose Level 165 mg/dL (70-99) Calcium Level 8.3 mg/dL (8.5-10.1) Magnesium Level 1.8 mg/dL (1.8-2.4) Test 08/14/16 07:20 Glucose (Fingerstick) 153 mg/dL (70-99) Laboratory Tests Test 08/13/16 11:12 08/13/16 16:19 08/13/16 20:50 08/14/16 05:45 Glucose (Fingerstick) 155 mg/dL (70-99) 153 mg/dL (70-99) 149 mg/dL (70-99) Sodium Level 141 mmol/L (136-145) Potassium Level 4.0 mmol/L (3.5-5.1) Chloride Level 106 mmol/L (98-107) Carbon Dioxide Level 29 mmol/L (21-32) Anion Gap 6 (6-14) Blood Urea Nitrogen 13 mg/dL (7-20) Creatinine 0.8 mg/dL (0.6-1.0) Estimated GFR (Cockcroft-Gault) 72.2 Glucose Level 165 mg/dL (70-99) Calcium Level 8.3 mg/dL (8.5-10.1) Magnesium Level 1.8 mg/dL (1.8-2.4) Test 08/14/16 07:20 Glucose (Fingerstick) 153 mg/dL (70-99) Meds Current Medications Sodium Acetate 50 meq/Sodium Phosphate 10 mmol/ Potassium Chloride 50 meq/ Potassium Phosphate 13.6 mmol/Magnesium Sulfate 16 meq/ Calcium Gluconate 8 meq / Multivitamins 10 ml/Chromium/ Copper/Manganese/ Seleni/Zn 1 ml/ Total Parenteral Nutrition/Amino Acids/Dextrose/ Fat Emuls... 1,512 ml @ 63 mls/hr TPN CONT IV Last administered on 08/13/16t 20:22; Start 08/13/16 at 22:00; Stop 08/14/16 at 21:59 Assessment Assessment FINAL IMPRESSION: 1. Enterocutaneous fistula. 2. Drainage from the umbilicus with surrounding maceration, erythema of the abdominal wall. 3. History of abdominal surgery for hernia with? mesh, 3 years ago. 4. History of cerebrovascular accident and subdural hematoma in the past. 5. Chronic obstructive pulmonary disease, smoker. PLAN: POD #3.. PROCEDURE: Exploratory laparotomy, lysis of adhesion, small-bowel resection, removal of mesh, ventral incisional hernia repair, and debridement of abdominal wall. surgery done for EC fistula monitor labs on TPN.labs good. NPO for now. s/p picc line placed iv antibiotics Zosyn+Diflucan. DOCK HAND for pain control . IV TPN Anemia- Hb dropped to 9.2 monitor. Leukocytosis is improving. Plan Plan For more details regarding further plans, please refer to the orders. BASIL SADLER MD Aug 14, 2016 11:08
--- NOTE | 2016-08-14 11:08 | PDOC ---
Infectious Disease Note Subjective Subjective Ambulated earlier Denies pain, N/V/D + BM NPO, on TPN ROS ROS GEN: Denies fevers, chills, sweats CV: Denies chest pain RESP: Denies shortness of air, cough Vital Sign Vital Signs Vital Signs Date Time Temp Pulse Resp B/P (MAP) Pulse Ox O2 Delivery O2 Flow Rate FiO2 08/14/16 08:08 Room Air 08/14/16 07:00 98.2 92 22 152/79 (103) 96 98.2 08/14/16 03:06 2.0 Physical Exam PHYSICAL EXAM GENERAL: Propped up in bed, NAD HEENT: Right eye reactive, (left eye blind). Edentulous. Dry. NGT NECK: Supple, no JVD, no LN LUNGS: Clear HEART: S1S2, no gallop, no murmur ABD: Obese, BS present, soft, NT. mid-line incision well approx. 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 (08/05). clean Labs Lab Laboratory Tests Test 08/13/16 11:12 08/13/16 16:19 08/13/16 20:50 08/14/16 05:45 Glucose (Fingerstick) 155 mg/dL (70-99) 153 mg/dL (70-99) 149 mg/dL (70-99) Sodium Level 141 mmol/L (136-145) Potassium Level 4.0 mmol/L (3.5-5.1) Chloride Level 106 mmol/L (98-107) Carbon Dioxide Level 29 mmol/L (21-32) Anion Gap 6 (6-14) Blood Urea Nitrogen 13 mg/dL (7-20) Creatinine 0.8 mg/dL (0.6-1.0) Estimated GFR (Cockcroft-Gault) 72.2 Glucose Level 165 mg/dL (70-99) Calcium Level 8.3 mg/dL (8.5-10.1) Magnesium Level 1.8 mg/dL (1.8-2.4) Test 08/14/16 07:20 Glucose (Fingerstick) 153 mg/dL (70-99) Micro ANAEROBIC-AEROBIC CULTURE Final Final report ANAEROBIC RES 1 Final Comment No anaerobic growth in 72 hours. AEROBIC RES 1 Final Proteus mirabilis AEROBIC RES 2 Final Enterococcus faecalis AEROBIC RES 3 Final Enterococcus faecalis Antibiotic RSLT#1 RSLT#2 RSLT#3 Amoxicillin/Clavulanic Acid S Ampicillin S Cefepime S Ceftriaxone S Cefuroxime S Ciprofloxacin S Ertapenem S Gentamicin S Levofloxacin S Penicillin S S Piperacillin S Tetracycline R Tobramycin S Trimethoprim/Sulfa S Vancomycin S S Objective Assessment EC fistula. Proteus and E. faecalis x 2 ampS, yeast s/p Expl lap, MACIEL, small-bowel resection, removal of mesh, ventral incisional hernia repair, and debridement of abdominal wall, 08/10 Leukocytosis, post-op, better Cellulitis/irritation by bile leak. Hernia surgery 2 yrs ago with mesh DM Subdural hematoma Plan Plan of Care Zosyn and Diflucan NPO f/u am labs Incentive spirometry PT/OT Attending Co-Sign The patient was seen and interviewed as well as examined at the bedside. The chart was reviewed. The case was discussed. Agree with the plan of care. CAMERON VILA APRN Aug 14, 2016 11:08 MARIIA LAURENT MD Aug 14, 2016 12:54
--- NOTE | 2016-08-14 11:12 | PDOC ---
SURGICAL PROGRESS NOTE Subjective Lobo for Felipe no new complaints NG "fell out" last noc had been off suction all day no c/o n/v Vital Signs Vital Signs Date Time Temp Pulse Resp B/P (MAP) Pulse Ox O2 Delivery O2 Flow Rate FiO2 08/14/16 11:00 98.3 88 22 129/65 (86) 96 Room Air 98.3 08/14/16 03:06 2.0 I&O Intake and Output 08/14/16 07:00 Intake Total 1244.25 ml Balance 1244.25 ml Intake Oral 0 ml IV Total 1244.25 ml # Voids 9 # Bowel Movements 1 PATIENT HAS A BRAN: No General: Alert, No acute distress Lungs: Other (a little tachypneic) Abdomen: Soft, Other (dressing intact) Labs Laboratory Tests Test 08/12/16 16:08 08/12/16 20:36 08/13/16 05:40 08/13/16 07:54 Glucose (Fingerstick) 163 mg/dL (70-99) 137 mg/dL (70-99) 156 mg/dL (70-99) White Blood Count 11.6 x10^3/uL (4.0-11.0) Red Blood Count 3.05 x10^6/uL (3.50-5.40) Hemoglobin 9.2 g/dL (12.0-15.5) Hematocrit 26.3 % (36.0-47.0) Mean Corpuscular Volume 86 fL (79-100) Mean Corpuscular Hemoglobin 30 pg (25-35) Mean Corpuscular Hemoglobin Concent 35 g/dL (31-37) Red Cell Distribution Width 13.3 % (11.5-14.5) Platelet Count 235 x10^3/uL (140-400) Neutrophils (%) (Auto) 71 % (31-73) Lymphocytes (%) (Auto) 15 % (24-48) Monocytes (%) (Auto) 11 % (0-9) Eosinophils (%) (Auto) 3 % (0-3) Basophils (%) (Auto) 1 % (0-3) Neutrophils # (Auto) 8.2 x10^3uL (1.8-7.7) Lymphocytes # (Auto) 1.7 x10^3/uL (1.0-4.8) Monocytes # (Auto) 1.3 x10^3/uL (0.0-1.1) Eosinophils # (Auto) 0.3 x10^3/uL (0.0-0.7) Basophils # (Auto) 0.1 x10^3/uL (0.0-0.2) Sodium Level 137 mmol/L (136-145) Potassium Level 4.1 mmol/L (3.5-5.1) Chloride Level 103 mmol/L (98-107) Carbon Dioxide Level 25 mmol/L (21-32) Anion Gap 9 (6-14) Blood Urea Nitrogen 14 mg/dL (7-20) Creatinine 0.7 mg/dL (0.6-1.0) Estimated GFR (Cockcroft-Gault) 84.2 Glucose Level 158 mg/dL (70-99) Calcium Level 8.0 mg/dL (8.5-10.1) Phosphorus Level 3.3 mg/dL (2.6-4.7) Magnesium Level 1.6 mg/dL (1.8-2.4) Test 08/13/16 11:12 08/13/16 16:19 08/13/16 20:50 08/14/16 05:45 Glucose (Fingerstick) 155 mg/dL (70-99) 153 mg/dL (70-99) 149 mg/dL (70-99) Sodium Level 141 mmol/L (136-145) Potassium Level 4.0 mmol/L (3.5-5.1) Chloride Level 106 mmol/L (98-107) Carbon Dioxide Level 29 mmol/L (21-32) Anion Gap 6 (6-14) Blood Urea Nitrogen 13 mg/dL (7-20) Creatinine 0.8 mg/dL (0.6-1.0) Estimated GFR (Cockcroft-Gault) 72.2 Glucose Level 165 mg/dL (70-99) Calcium Level 8.3 mg/dL (8.5-10.1) Magnesium Level 1.8 mg/dL (1.8-2.4) Test 08/14/16 07:20 Glucose (Fingerstick) 153 mg/dL (70-99) Laboratory Tests Test 08/13/16 11:12 08/13/16 16:19 08/13/16 20:50 08/14/16 05:45 Glucose (Fingerstick) 155 mg/dL (70-99) 153 mg/dL (70-99) 149 mg/dL (70-99) Sodium Level 141 mmol/L (136-145) Potassium Level 4.0 mmol/L (3.5-5.1) Chloride Level 106 mmol/L (98-107) Carbon Dioxide Level 29 mmol/L (21-32) Anion Gap 6 (6-14) Blood Urea Nitrogen 13 mg/dL (7-20) Creatinine 0.8 mg/dL (0.6-1.0) Estimated GFR (Cockcroft-Gault) 72.2 Glucose Level 165 mg/dL (70-99) Calcium Level 8.3 mg/dL (8.5-10.1) Magnesium Level 1.8 mg/dL (1.8-2.4) Test 08/14/16 07:20 Glucose (Fingerstick) 153 mg/dL (70-99) Assessment/Plan POD 4 start clears Problems: GILMER GARG MD Aug 14, 2016 11:12
[2016-08-14] MEDS: TPN PER PHARMACY MC PRN (11:47)
[2016-08-14 15:19] VITALS: BP 134/70
[2016-08-14] MEDS: FLUCONAZOLE 200MG/100ML PREMIX 100 ML IV SCH (17:55)
[2016-08-14 19:00] VITALS: BP 162/68
[2016-08-14] MEDS: IV NORMAL SALINE 500ML BAG 500 ML IV SCH (19:30)
[2016-08-14] MEDS ORDERED: DEXTROSE 70% IV SCH ×11 (22:00)
[2016-08-14] MEDS ORDERED: [UNRECOGNIZED DRUG - OTHER] IV SCH ×11 (22:00)
[2016-08-14] MEDS ORDERED: TOTAL PARENTERAL NUTRITION IV SCH ×11 (22:00)
[2016-08-14] MEDS ORDERED: AMINO ACIDS IV SCH ×11 (22:00)
[2016-08-15 03:26] VITALS: BP 156/69
[2016-08-15] MEDS: PANTOPRAZOLE IV PUSH 40 MG VIAL. IVP SCH (06:33)
[2016-08-15 06:35] LABS: BASO # 0.1 x10^3/uL (0.0-0.2); BASO % 1 % (0-3); EOS % 3 % (0-3); HEMATOCRIT 28.5 % (36.0-47.0); HEMOGLOBIN 9.4 g/dL (12.0-15.5); LYMPH # 1.8 x10^3/uL (1.0-4.8); LYMPH % 17 % (24-48); MEAN CORPUSCULAR HEMOGLOBIN 29 pg (25-35); MEAN CORPUSCULAR HGB CONC 33 g/dL (31-37); MEAN CORPUSCULAR VOLUME 88 fL (79-100); MONO % 10 % (0-9); NEUT % 69 % (31-73); PLATELET COUNT 317 x10^3/uL (140-400); RED BLOOD COUNT 3.24 x10^6/uL (3.50-5.40); RED CELL DISTRIBUTION WIDTH 13.7 % (11.5-14.5); WHITE BLOOD COUNT 10.6 x10^3/uL (4.0-11.0)
[2016-08-15 06:41] LABS: CALCIUM 8.7 mg/dL (8.5-10.1); CREATININE 0.8 mg/dL (0.6-1.0); GFR 72.2; POTASSIUM 4.3 mmol/L (3.5-5.1)
[2016-08-15 07:00] VITALS: BP 141/100
[2016-08-15] MEDS: ALBUTEROL SULFATE 2.5 MG/3 ML NEBU. NEB SCH ×4 (07:33→20:00)
[2016-08-15] MEDS: INSULIN ASPART 300 UNITS/3 ML INSULN.PEN SQ SCH ×3 (08:01→17:37)
[2016-08-15] MEDS: COMBIGAN EYE DROPS OD SCH ×2 (08:23→21:00)
[2016-08-15] MEDS: BRIMONIDINE 0.2% OPHTH SOLUTION 5ML BOTTLE. OD SCH (08:25)
[2016-08-15] MEDS: LUMIGAN EYE DROPS OD SCH (08:25)
[2016-08-15] MEDS: ENOXAPARIN 40 MG/0.4 ML SYRINGE. SQ SCH ×2 (08:25→21:31)
[2016-08-15] MEDS: BENZONATATE 100 MG CAPSULE. PO SCH ×3 (08:26→21:00)
[2016-08-15] MEDS: GLIMEPIRIDE 2 MG TABLET. PO SCH (08:26)
[2016-08-15] MEDS: predniSONE 20 MG TABLET PO SCH (08:26)
[2016-08-15] MEDS: AMITRIPTYLINE HCL 10 MG TABLET. PO SCH (08:26)
[2016-08-15] MEDS: IV NORMAL SALINE 500ML BAG 500 ML IV SCH (08:35)
--- NOTE | 2016-08-15 09:43 | PDOC ---
Infectious Disease Note Subjective Subjective Denies pain Loose stools Tolerating clear liquids ROS ROS GEN: Denies fevers, chills, sweats CV: Denies chest pain RESP: Denies shortness of air, cough GI: Denies n/v/d Vital Sign Vital Signs Vital Signs Date Time Temp Pulse Resp B/P (MAP) Pulse Ox O2 Delivery O2 Flow Rate FiO2 08/15/16 07:34 97 Nasal Cannula 1.0 08/15/16 07:00 98.0 93 20 141/100 (114) 98.0 Physical Exam PHYSICAL EXAM GENERAL: Propped up in bed, NAD HEENT: Edentulous. Dry. NGT out LUNGS: Clear HEART: S1S2, no gallop, no murmur ABD: Obese, BS present, soft, NT. mid-line incision well approx. 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 (08/05). clean Labs Lab Laboratory Tests Test 08/14/16 11:51 08/14/16 16:32 08/14/16 20:42 08/15/16 06:30 Glucose (Fingerstick) 146 mg/dL (70-99) 96 mg/dL (70-99) 87 mg/dL (70-99) White Blood Count 10.6 x10^3/uL (4.0-11.0) Red Blood Count 3.24 x10^6/uL (3.50-5.40) Hemoglobin 9.4 g/dL (12.0-15.5) Hematocrit 28.5 % (36.0-47.0) Mean Corpuscular Volume 88 fL (79-100) Mean Corpuscular Hemoglobin 29 pg (25-35) Mean Corpuscular Hemoglobin Concent 33 g/dL (31-37) Red Cell Distribution Width 13.7 % (11.5-14.5) Platelet Count 317 x10^3/uL (140-400) Neutrophils (%) (Auto) 69 % (31-73) Lymphocytes (%) (Auto) 17 % (24-48) Monocytes (%) (Auto) 10 % (0-9) Eosinophils (%) (Auto) 3 % (0-3) Basophils (%) (Auto) 1 % (0-3) Neutrophils # (Auto) 7.3 x10^3uL (1.8-7.7) Lymphocytes # (Auto) 1.8 x10^3/uL (1.0-4.8) Monocytes # (Auto) 1.1 x10^3/uL (0.0-1.1) Eosinophils # (Auto) 0.3 x10^3/uL (0.0-0.7) Basophils # (Auto) 0.1 x10^3/uL (0.0-0.2) Sodium Level 139 mmol/L (136-145) Potassium Level 4.3 mmol/L (3.5-5.1) Chloride Level 104 mmol/L (98-107) Carbon Dioxide Level 28 mmol/L (21-32) Anion Gap 7 (6-14) Blood Urea Nitrogen 13 mg/dL (7-20) Creatinine 0.8 mg/dL (0.6-1.0) Estimated GFR (Cockcroft-Gault) 72.2 Glucose Level 123 mg/dL (70-99) Calcium Level 8.7 mg/dL (8.5-10.1) Test 08/15/16 07:32 Glucose (Fingerstick) 133 mg/dL (70-99) Micro ANAEROBIC-AEROBIC CULTURE Final Final report ANAEROBIC RES 1 Final Comment No anaerobic growth in 72 hours. AEROBIC RES 1 Final Proteus mirabilis AEROBIC RES 2 Final Enterococcus faecalis AEROBIC RES 3 Final Enterococcus faecalis Antibiotic RSLT#1 RSLT#2 RSLT#3 Amoxicillin/Clavulanic Acid S Ampicillin S Cefepime S Ceftriaxone S Cefuroxime S Ciprofloxacin S Ertapenem S Gentamicin S Levofloxacin S Penicillin S S Piperacillin S Tetracycline R Tobramycin S Trimethoprim/Sulfa S Vancomycin S S Objective Assessment EC fistula. Proteus and E. faecalis x 2 ampS, yeast s/p Expl lap, MACIEL, small-bowel resection, removal of mesh, ventral incisional hernia repair, and debridement of abdominal wall, 08/10 Leukocytosis, post-op, better Cellulitis/irritation by bile leak. improved Hernia surgery 2 yrs ago with mesh DM Subdural hematoma Plan Plan of Care Diflucan Incentive spirometry PT/OT D/w Attending Co-Sign The patient was seen and interviewed as well as examined at the bedside. The chart was reviewed. The case was discussed. Agree with the plan of care. SUBLETTE,CAMERON C OPENER [employer] Aug 15, 2016 09:43 MARIIA LAURENT MD Aug 15, 2016 14:17
--- NOTE | 2016-08-15 10:09 | PDOC ---
IM PROGRESS NOTES- Subjective Subjective No c/o pain,dyspnea. Objective Vitals Vital Signs Date Time Temp Pulse Resp B/P (MAP) Pulse Ox O2 Delivery O2 Flow Rate FiO2 08/15/16 07:34 97 Nasal Cannula 1.0 08/15/16 07:00 98.0 93 20 141/100 (114) 98.0 Input & Output Intake and Output 08/15/16 07:00 Intake Total 1476.5 ml Output Total 800 ml Balance 676.5 ml Intake Oral 780 ml IV Total 696.5 ml Output Urine Total 800 ml # Bowel Movements 1 Physical Exam Physical Exam Alert,oriented,in mild distress Heart: Regular rate, Normal S1, Normal S2 Extremities: No clubbing General: Alert, Oriented X3, Cooperative, No acute distress HEENT: Other (ng-tannish drainage ) Lungs: [id number] BS bilaterally Abdomen: Soft, Other (ND, dressing dry ) MUSCULOSKELETAL: No deformity Neck: Supple Neuro: Normal speech Psych/Mental Status: Mental status NL Dressings abd wall, NGT, COMMISSIONING EDITOR and TPN Labs Laboratory Tests Test 08/13/16 11:12 08/13/16 16:19 08/13/16 20:50 08/14/16 05:45 Glucose (Fingerstick) 155 mg/dL (70-99) 153 mg/dL (70-99) 149 mg/dL (70-99) Sodium Level 141 mmol/L (136-145) Potassium Level 4.0 mmol/L (3.5-5.1) Chloride Level 106 mmol/L (98-107) Carbon Dioxide Level 29 mmol/L (21-32) Anion Gap 6 (6-14) Blood Urea Nitrogen 13 mg/dL (7-20) Creatinine 0.8 mg/dL (0.6-1.0) Estimated GFR (Cockcroft-Gault) 72.2 Glucose Level 165 mg/dL (70-99) Calcium Level 8.3 mg/dL (8.5-10.1) Magnesium Level 1.8 mg/dL (1.8-2.4) Test 08/14/16 07:20 08/14/16 11:51 08/14/16 16:32 08/14/16 20:42 Glucose (Fingerstick) 153 mg/dL (70-99) 146 mg/dL (70-99) 96 mg/dL (70-99) 87 mg/dL (70-99) Test 08/15/16 06:30 08/15/16 07:32 White Blood Count 10.6 x10^3/uL (4.0-11.0) Red Blood Count 3.24 x10^6/uL (3.50-5.40) Hemoglobin 9.4 g/dL (12.0-15.5) Hematocrit 28.5 % (36.0-47.0) Mean Corpuscular Volume 88 fL (79-100) Mean Corpuscular Hemoglobin 29 pg (25-35) Mean Corpuscular Hemoglobin Concent 33 g/dL (31-37) Red Cell Distribution Width 13.7 % (11.5-14.5) Platelet Count 317 x10^3/uL (140-400) Neutrophils (%) (Auto) 69 % (31-73) Lymphocytes (%) (Auto) 17 % (24-48) Monocytes (%) (Auto) 10 % (0-9) Eosinophils (%) (Auto) 3 % (0-3) Basophils (%) (Auto) 1 % (0-3) Neutrophils # (Auto) 7.3 x10^3uL (1.8-7.7) Lymphocytes # (Auto) 1.8 x10^3/uL (1.0-4.8) Monocytes # (Auto) 1.1 x10^3/uL (0.0-1.1) Eosinophils # (Auto) 0.3 x10^3/uL (0.0-0.7) Basophils # (Auto) 0.1 x10^3/uL (0.0-0.2) Sodium Level 139 mmol/L (136-145) Potassium Level 4.3 mmol/L (3.5-5.1) Chloride Level 104 mmol/L (98-107) Carbon Dioxide Level 28 mmol/L (21-32) Anion Gap 7 (6-14) Blood Urea Nitrogen 13 mg/dL (7-20) Creatinine 0.8 mg/dL (0.6-1.0) Estimated GFR (Cockcroft-Gault) 72.2 Glucose Level 123 mg/dL (70-99) Calcium Level 8.7 mg/dL (8.5-10.1) Glucose (Fingerstick) 133 mg/dL (70-99) Laboratory Tests Test 08/14/16 11:51 08/14/16 16:32 08/14/16 20:42 08/15/16 06:30 Glucose (Fingerstick) 146 mg/dL (70-99) 96 mg/dL (70-99) 87 mg/dL (70-99) White Blood Count 10.6 x10^3/uL (4.0-11.0) Red Blood Count 3.24 x10^6/uL (3.50-5.40) Hemoglobin 9.4 g/dL (12.0-15.5) Hematocrit 28.5 % (36.0-47.0) Mean Corpuscular Volume 88 fL (79-100) Mean Corpuscular Hemoglobin 29 pg (25-35) Mean Corpuscular Hemoglobin Concent 33 g/dL (31-37) Red Cell Distribution Width 13.7 % (11.5-14.5) Platelet Count 317 x10^3/uL (140-400) Neutrophils (%) (Auto) 69 % (31-73) Lymphocytes (%) (Auto) 17 % (24-48) Monocytes (%) (Auto) 10 % (0-9) Eosinophils (%) (Auto) 3 % (0-3) Basophils (%) (Auto) 1 % (0-3) Neutrophils # (Auto) 7.3 x10^3uL (1.8-7.7) Lymphocytes # (Auto) 1.8 x10^3/uL (1.0-4.8) Monocytes # (Auto) 1.1 x10^3/uL (0.0-1.1) Eosinophils # (Auto) 0.3 x10^3/uL (0.0-0.7) Basophils # (Auto) 0.1 x10^3/uL (0.0-0.2) Sodium Level 139 mmol/L (136-145) Potassium Level 4.3 mmol/L (3.5-5.1) Chloride Level 104 mmol/L (98-107) Carbon Dioxide Level 28 mmol/L (21-32) Anion Gap 7 (6-14) Blood Urea Nitrogen 13 mg/dL (7-20) Creatinine 0.8 mg/dL (0.6-1.0) Estimated GFR (Cockcroft-Gault) 72.2 Glucose Level 123 mg/dL (70-99) Calcium Level 8.7 mg/dL (8.5-10.1) Test 08/15/16 07:32 Glucose (Fingerstick) 133 mg/dL (70-99) Meds Current Medications Sodium Acetate 50 meq/Sodium Phosphate 10 mmol/ Potassium Chloride 50 meq/ Potassium Phosphate 13.6 mmol/Magnesium Sulfate 16 meq/ Calcium Gluconate 8 meq / Multivitamins 10 ml/Chromium/ Copper/Manganese/ Seleni/Zn 1 ml/ Total Parenteral Nutrition/Amino Acids/Dextrose/ Fat Emuls... 1,512 ml @ 63 mls/hr TPN CONT IV Last administered on 08/14/16t 21:30; Start 08/14/16 at 22:00; Stop 08/15/16 at 21:59 Assessment Assessment FINAL IMPRESSION: 1. Enterocutaneous fistula. 2. Drainage from the umbilicus with surrounding maceration, erythema of the abdominal wall. 3. History of abdominal surgery for hernia with? mesh, 3 years ago. 4. History of cerebrovascular accident and subdural hematoma in the past. 5. Chronic obstructive pulmonary disease, smoker. PLAN: POD #3.. PROCEDURE: Exploratory laparotomy, lysis of adhesion, small-bowel resection, removal of mesh, ventral incisional hernia repair, and debridement of abdominal wall. surgery done for EC fistula monitor labs on TPN.labs good. NPO for now. s/p picc line placed iv antibiotics Zosyn+Diflucan. COMMISSIONING EDITOR for pain control . IV TPN Anemia- Hb 9.2 yest ,today 9.4. Leukocytosis is improving. Wound c/s skin sary. On Diflucan. Labs stable. Plan Plan For more details regarding further plans, please refer to the orders. BASIL SADLER MD Aug 15, 2016 10:09
--- NOTE | 2016-08-15 10:22 | PDOC ---
SURGICAL PROGRESS NOTE Subjective up to recliner still has incisional pain Vital Signs Vital Signs Date Time Temp Pulse Resp B/P (MAP) Pulse Ox O2 Delivery O2 Flow Rate FiO2 08/15/16 07:34 97 Nasal Cannula 1.0 08/15/16 07:00 98.0 93 20 141/100 (114) 98.0 I&O Intake and Output 08/15/16 07:00 Intake Total 1476.5 ml Output Total 800 ml Balance 676.5 ml Intake Oral 780 ml IV Total 696.5 ml Output Urine Total 800 ml # Bowel Movements 1 PATIENT HAS A BRAN: No General: Alert, Oriented X3 Abdomen: Soft, Other (incision clean, dry, intact) Labs Laboratory Tests Test 08/13/16 11:12 08/13/16 16:19 08/13/16 20:50 08/14/16 05:45 Glucose (Fingerstick) 155 mg/dL (70-99) 153 mg/dL (70-99) 149 mg/dL (70-99) Sodium Level 141 mmol/L (136-145) Potassium Level 4.0 mmol/L (3.5-5.1) Chloride Level 106 mmol/L (98-107) Carbon Dioxide Level 29 mmol/L (21-32) Anion Gap 6 (6-14) Blood Urea Nitrogen 13 mg/dL (7-20) Creatinine 0.8 mg/dL (0.6-1.0) Estimated GFR (Cockcroft-Gault) 72.2 Glucose Level 165 mg/dL (70-99) Calcium Level 8.3 mg/dL (8.5-10.1) Magnesium Level 1.8 mg/dL (1.8-2.4) Test 08/14/16 07:20 08/14/16 11:51 08/14/16 16:32 08/14/16 20:42 Glucose (Fingerstick) 153 mg/dL (70-99) 146 mg/dL (70-99) 96 mg/dL (70-99) 87 mg/dL (70-99) Test 08/15/16 06:30 08/15/16 07:32 White Blood Count 10.6 x10^3/uL (4.0-11.0) Red Blood Count 3.24 x10^6/uL (3.50-5.40) Hemoglobin 9.4 g/dL (12.0-15.5) Hematocrit 28.5 % (36.0-47.0) Mean Corpuscular Volume 88 fL (79-100) Mean Corpuscular Hemoglobin 29 pg (25-35) Mean Corpuscular Hemoglobin Concent 33 g/dL (31-37) Red Cell Distribution Width 13.7 % (11.5-14.5) Platelet Count 317 x10^3/uL (140-400) Neutrophils (%) (Auto) 69 % (31-73) Lymphocytes (%) (Auto) 17 % (24-48) Monocytes (%) (Auto) 10 % (0-9) Eosinophils (%) (Auto) 3 % (0-3) Basophils (%) (Auto) 1 % (0-3) Neutrophils # (Auto) 7.3 x10^3uL (1.8-7.7) Lymphocytes # (Auto) 1.8 x10^3/uL (1.0-4.8) Monocytes # (Auto) 1.1 x10^3/uL (0.0-1.1) Eosinophils # (Auto) 0.3 x10^3/uL (0.0-0.7) Basophils # (Auto) 0.1 x10^3/uL (0.0-0.2) Sodium Level 139 mmol/L (136-145) Potassium Level 4.3 mmol/L (3.5-5.1) Chloride Level 104 mmol/L (98-107) Carbon Dioxide Level 28 mmol/L (21-32) Anion Gap 7 (6-14) Blood Urea Nitrogen 13 mg/dL (7-20) Creatinine 0.8 mg/dL (0.6-1.0) Estimated GFR (Cockcroft-Gault) 72.2 Glucose Level 123 mg/dL (70-99) Calcium Level 8.7 mg/dL (8.5-10.1) Glucose (Fingerstick) 133 mg/dL (70-99) Laboratory Tests Test 08/14/16 11:51 08/14/16 16:32 08/14/16 20:42 08/15/16 06:30 Glucose (Fingerstick) 146 mg/dL (70-99) 96 mg/dL (70-99) 87 mg/dL (70-99) White Blood Count 10.6 x10^3/uL (4.0-11.0) Red Blood Count 3.24 x10^6/uL (3.50-5.40) Hemoglobin 9.4 g/dL (12.0-15.5) Hematocrit 28.5 % (36.0-47.0) Mean Corpuscular Volume 88 fL (79-100) Mean Corpuscular Hemoglobin 29 pg (25-35) Mean Corpuscular Hemoglobin Concent 33 g/dL (31-37) Red Cell Distribution Width 13.7 % (11.5-14.5) Platelet Count 317 x10^3/uL (140-400) Neutrophils (%) (Auto) 69 % (31-73) Lymphocytes (%) (Auto) 17 % (24-48) Monocytes (%) (Auto) 10 % (0-9) Eosinophils (%) (Auto) 3 % (0-3) Basophils (%) (Auto) 1 % (0-3) Neutrophils # (Auto) 7.3 x10^3uL (1.8-7.7) Lymphocytes # (Auto) 1.8 x10^3/uL (1.0-4.8) Monocytes # (Auto) 1.1 x10^3/uL (0.0-1.1) Eosinophils # (Auto) 0.3 x10^3/uL (0.0-0.7) Basophils # (Auto) 0.1 x10^3/uL (0.0-0.2) Sodium Level 139 mmol/L (136-145) Potassium Level 4.3 mmol/L (3.5-5.1) Chloride Level 104 mmol/L (98-107) Carbon Dioxide Level 28 mmol/L (21-32) Anion Gap 7 (6-14) Blood Urea Nitrogen 13 mg/dL (7-20) Creatinine 0.8 mg/dL (0.6-1.0) Estimated GFR (Cockcroft-Gault) 72.2 Glucose Level 123 mg/dL (70-99) Calcium Level 8.7 mg/dL (8.5-10.1) Test 08/15/16 07:32 Glucose (Fingerstick) 133 mg/dL (70-99) Assessment/Plan POD 5 advance [place] abdominal binder advance diet Problems: GILMER GARG MD Aug 15, 2016 10:22
[2016-08-15 11:00] VITALS: BP 152/71
[2016-08-15] MEDS: TPN PER PHARMACY MC PRN (11:35)
[2016-08-15 15:00] VITALS: BP 185/78
[2016-08-15 19:00] VITALS: BP 181/60
[2016-08-15] MEDS ORDERED: [UNRECOGNIZED DRUG - OTHER] IV SCH ×11 (22:00)
[2016-08-15] MEDS ORDERED: DEXTROSE 70% IV SCH ×11 (22:00)
[2016-08-15] MEDS ORDERED: AMINO ACIDS IV SCH ×11 (22:00)
[2016-08-15] MEDS ORDERED: TOTAL PARENTERAL NUTRITION IV SCH ×11 (22:00)
[2016-08-15 23:00] VITALS: BP 178/89
[2016-08-16 03:01] VITALS: BP 187/81
[2016-08-16 06:01] LABS: ALBUMIN 2.4 g/dL (3.4-5.0); ALBUMIN/GLOBULIN RATIO 0.6 (1.0-1.7); CALCIUM 8.5 mg/dL (8.5-10.1); CREATININE 0.7 mg/dL (0.6-1.0); GFR 84.2; PHOSPHORUS 3.7 mg/dL (2.6-4.7); POTASSIUM 3.6 mmol/L (3.5-5.1); TOTAL BILIRUBIN 1.2 mg/dL (0.2-1.0); TOTAL PROTEIN 6.7 g/dL (6.4-8.2)
[2016-08-16 07:00] VITALS: BP 156/85
[2016-08-16] MEDS: INSULIN ASPART 300 UNITS/3 ML INSULN.PEN SQ SCH ×3 (08:00→17:00)
[2016-08-16] MEDS: ALBUTEROL SULFATE 2.5 MG/3 ML NEBU. NEB SCH ×2 (08:00→12:00)
--- NOTE | 2016-08-16 08:28 | PDOC ---
Infectious Disease Note Subjective Subjective feeling good ROS ROS GEN: Denies fevers, chills, sweats HEENT: Denies blurred vision, sore throat CV: Denies chest pain RESP: Denies shortness of air, cough GI: Denies n/v/d NEURO: Denies confusion, dizziness MSK: Denies weakness, joint pain/swelling Vital Sign Vital Signs Vital Signs Date Time Temp Pulse Resp B/P (MAP) Pulse Ox O2 Delivery O2 Flow Rate FiO2 08/16/16 07:00 98.3 106 22 156/85 (108) 95 Room Air 98.3 08/15/16 15:11 1.0 Physical Exam PHYSICAL EXAM GENERAL: NAD, Alert HEENT: PERRL, OC/OP NECK: Supple, no JVD, no LN LUNGS: Clear HEART: S1S2, no gallop, no murmur ABD: Soft, NT, no organomegaly, no rebound EXT: No edema, no cyanosis NURSERY SUPERVISOR: Alert, oriented x 3, no focal neurologic deficit SKIN: No rash IV: ok Labs Lab Laboratory Tests Test 08/15/16 11:08 08/15/16 16:12 08/15/16 20:28 08/16/16 05:15 Glucose (Fingerstick) 144 mg/dL (70-99) 166 mg/dL (70-99) 116 mg/dL (70-99) Sodium Level 140 mmol/L (136-145) Potassium Level 3.6 mmol/L (3.5-5.1) Chloride Level 105 mmol/L (98-107) Carbon Dioxide Level 27 mmol/L (21-32) Anion Gap 8 (6-14) Blood Urea Nitrogen 17 mg/dL (7-20) Creatinine 0.7 mg/dL (0.6-1.0) Estimated GFR (Cockcroft-Gault) 84.2 BUN/Creatinine Ratio 24 (6-20) Glucose Level 128 mg/dL (70-99) Calcium Level 8.5 mg/dL (8.5-10.1) Phosphorus Level 3.7 mg/dL (2.6-4.7) Magnesium Level 2.0 mg/dL (1.8-2.4) Total Bilirubin 1.2 mg/dL (0.2-1.0) Aspartate Amino Transf (AST/SGOT) 40 U/L (15-37) Alanine Aminotransferase (ALT/SGPT) 65 U/L (14-59) Alkaline Phosphatase 97 U/L (46-116) Total Protein 6.7 g/dL (6.4-8.2) Albumin 2.4 g/dL (3.4-5.0) Albumin/Globulin Ratio 0.6 (1.0-1.7) Test 08/16/16 07:15 Glucose (Fingerstick) 134 mg/dL (70-99) Objective Assessment EC fistula. Proteus and E. faecalis x 2 ampS, yeast s/p Expl lap, MACIEL, small-bowel resection, removal of mesh, ventral incisional hernia repair, and debridement of abdominal wall, 08/10 Leukocytosis, post-op, better Cellulitis/irritation by bile leak. improved Hernia surgery 2 yrs ago with mesh DM Subdural hematoma Plan Plan of Care off antibiotics advance diet as per surgery D/w MARIIA Tapia MD Aug 16, 2016 08:28
[2016-08-16] MEDS: PANTOPRAZOLE IV PUSH 40 MG VIAL. IVP SCH (08:58)
[2016-08-16] MEDS: predniSONE 20 MG TABLET PO SCH (08:58)
[2016-08-16] MEDS: GLIMEPIRIDE 2 MG TABLET. PO SCH (08:59)
[2016-08-16] MEDS: COMBIGAN EYE DROPS OD SCH ×2 (09:00→21:00)
[2016-08-16] MEDS: LUMIGAN EYE DROPS OD SCH (09:00)
[2016-08-16] MEDS: BRIMONIDINE 0.2% OPHTH SOLUTION 5ML BOTTLE. OD SCH (09:00)
[2016-08-16] MEDS: AMITRIPTYLINE HCL 10 MG TABLET. PO SCH (09:00)
[2016-08-16] MEDS: BENZONATATE 100 MG CAPSULE. PO SCH ×3 (09:00→21:36)
[2016-08-16] MEDS: ENOXAPARIN 40 MG/0.4 ML SYRINGE. SQ SCH ×2 (09:04→21:37)
--- NOTE | 2016-08-16 10:23 | PDOC ---
SURGICAL PROGRESS NOTE Subjective ambulating tolerating diet, does not like the liquids having stools no nausea Vital Signs Vital Signs Date Time Temp Pulse Resp B/P (MAP) Pulse Ox O2 Delivery O2 Flow Rate FiO2 08/16/16 07:00 98.3 106 22 156/85 (108) 95 Room Air 98.3 08/15/16 15:11 1.0 I&O Intake and Output 08/16/16 07:00 Intake Total 260 ml Balance 260 ml Intake Oral 260 ml # Voids 7 # Bowel Movements 2 General: Alert, Oriented X3, Cooperative, No acute distress Abdomen: Soft, Other (dressing dry, nina in place, incision c/d/i, no erythema ) Labs Laboratory Tests Test 08/14/16 11:51 08/14/16 16:32 08/14/16 20:42 08/15/16 06:30 Glucose (Fingerstick) 146 mg/dL (70-99) 96 mg/dL (70-99) 87 mg/dL (70-99) White Blood Count 10.6 x10^3/uL (4.0-11.0) Red Blood Count 3.24 x10^6/uL (3.50-5.40) Hemoglobin 9.4 g/dL (12.0-15.5) Hematocrit 28.5 % (36.0-47.0) Mean Corpuscular Volume 88 fL (79-100) Mean Corpuscular Hemoglobin 29 pg (25-35) Mean Corpuscular Hemoglobin Concent 33 g/dL (31-37) Red Cell Distribution Width 13.7 % (11.5-14.5) Platelet Count 317 x10^3/uL (140-400) Neutrophils (%) (Auto) 69 % (31-73) Lymphocytes (%) (Auto) 17 % (24-48) Monocytes (%) (Auto) 10 % (0-9) Eosinophils (%) (Auto) 3 % (0-3) Basophils (%) (Auto) 1 % (0-3) Neutrophils # (Auto) 7.3 x10^3uL (1.8-7.7) Lymphocytes # (Auto) 1.8 x10^3/uL (1.0-4.8) Monocytes # (Auto) 1.1 x10^3/uL (0.0-1.1) Eosinophils # (Auto) 0.3 x10^3/uL (0.0-0.7) Basophils # (Auto) 0.1 x10^3/uL (0.0-0.2) Sodium Level 139 mmol/L (136-145) Potassium Level 4.3 mmol/L (3.5-5.1) Chloride Level 104 mmol/L (98-107) Carbon Dioxide Level 28 mmol/L (21-32) Anion Gap 7 (6-14) Blood Urea Nitrogen 13 mg/dL (7-20) Creatinine 0.8 mg/dL (0.6-1.0) Estimated GFR (Cockcroft-Gault) 72.2 Glucose Level 123 mg/dL (70-99) Calcium Level 8.7 mg/dL (8.5-10.1) Test 08/15/16 07:32 08/15/16 11:08 08/15/16 16:12 08/15/16 20:28 Glucose (Fingerstick) 133 mg/dL (70-99) 144 mg/dL (70-99) 166 mg/dL (70-99) 116 mg/dL (70-99) Test 08/16/16 05:15 08/16/16 07:15 Sodium Level 140 mmol/L (136-145) Potassium Level 3.6 mmol/L (3.5-5.1) Chloride Level 105 mmol/L (98-107) Carbon Dioxide Level 27 mmol/L (21-32) Anion Gap 8 (6-14) Blood Urea Nitrogen 17 mg/dL (7-20) Creatinine 0.7 mg/dL (0.6-1.0) Estimated GFR (Cockcroft-Gault) 84.2 BUN/Creatinine Ratio 24 (6-20) Glucose Level 128 mg/dL (70-99) Calcium Level 8.5 mg/dL (8.5-10.1) Phosphorus Level 3.7 mg/dL (2.6-4.7) Magnesium Level 2.0 mg/dL (1.8-2.4) Total Bilirubin 1.2 mg/dL (0.2-1.0) Aspartate Amino Transf (AST/SGOT) 40 U/L (15-37) Alanine Aminotransferase (ALT/SGPT) 65 U/L (14-59) Alkaline Phosphatase 97 U/L (46-116) Total Protein 6.7 g/dL (6.4-8.2) Albumin 2.4 g/dL (3.4-5.0) Albumin/Globulin Ratio 0.6 (1.0-1.7) Glucose (Fingerstick) 134 mg/dL (70-99) Laboratory Tests Test 08/15/16 11:08 08/15/16 16:12 08/15/16 20:28 08/16/16 05:15 Glucose (Fingerstick) 144 mg/dL (70-99) 166 mg/dL (70-99) 116 mg/dL (70-99) Sodium Level 140 mmol/L (136-145) Potassium Level 3.6 mmol/L (3.5-5.1) Chloride Level 105 mmol/L (98-107) Carbon Dioxide Level 27 mmol/L (21-32) Anion Gap 8 (6-14) Blood Urea Nitrogen 17 mg/dL (7-20) Creatinine 0.7 mg/dL (0.6-1.0) Estimated GFR (Cockcroft-Gault) 84.2 BUN/Creatinine Ratio 24 (6-20) Glucose Level 128 mg/dL (70-99) Calcium Level 8.5 mg/dL (8.5-10.1) Phosphorus Level 3.7 mg/dL (2.6-4.7) Magnesium Level 2.0 mg/dL (1.8-2.4) Total Bilirubin 1.2 mg/dL (0.2-1.0) Aspartate Amino Transf (AST/SGOT) 40 U/L (15-37) Alanine Aminotransferase (ALT/SGPT) 65 U/L (14-59) Alkaline Phosphatase 97 U/L (46-116) Total Protein 6.7 g/dL (6.4-8.2) Albumin 2.4 g/dL (3.4-5.0) Albumin/Globulin Ratio 0.6 (1.0-1.7) Test 08/16/16 07:15 Glucose (Fingerstick) 134 mg/dL (70-99) Problem List s/p xlap 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
[2016-08-16 11:00] VITALS: BP 154/74
[2016-08-16] MEDS: IV NORMAL SALINE 500ML BAG 500 ML IV SCH (11:30)
[2016-08-16] MEDS: TPN PER PHARMACY MC PRN (13:10)
[2016-08-16 15:00] VITALS: BP 163/82
[2016-08-16] MEDS ORDERED: MORPHINE SULFATE 2 MG/ML DISP.SYRIN. IV PRN (15:00)
[2016-08-16] MEDS ORDERED: oxyCODONE/APAP 5/325 1 TAB TABLET PO PRN ×2 (16:00→16:45)
[2016-08-16] MEDS: oxyCODONE/APAP 5/325 1 TAB TABLET PO PRN ×2 (16:59→21:37)
--- NOTE | 2016-08-16 17:28 | PDOC ---
PROGRESS NOTES Subjective Subjective anxious to go home Objective Objective Vital Signs Date Time Temp Pulse Resp B/P (MAP) Pulse Ox O2 Delivery O2 Flow Rate FiO2 08/16/16 16:59 91 Room Air 1.0 08/16/16 15:00 98.4 105 22 163/82 (109) 98.4 Intake and Output 08/16/16 07:00 Intake Total 260 ml Balance 260 ml Intake Oral 260 ml # Voids 7 # Bowel Movements 2 Physical Exam Abdomen: Soft, Other (dressing dry, nina in place, incision c/d/i, no erythema ) Heart: Regular rate, Normal S1, Normal S2 Extremities: No clubbing General: Alert, Oriented X3, Cooperative, No acute distress HEENT: Other (ng-tannish drainage ) Lungs: Other (a little tachypneic) MUSCULOSKELETAL: No deformity Neck: Supple Neuro: Normal speech Psych/Mental Status: Mental status NL COMMENT dressings abd wall, TPN Assessment Assessment FINAL IMPRESSION: 1. Enterocutaneous fistula. 2. Drainage from the umbilicus with surrounding maceration, erythema of the abdominal wall. 3. History of abdominal surgery for hernia with? mesh, 3 years ago. 4. History of cerebrovascular accident and subdural hematoma in the past. 5. Chronic obstructive pulmonary disease, smoker. PLAN: POD #6.. PROCEDURE: Exploratory laparotomy, lysis of adhesion, small-bowel resection, removal of mesh, ventral incisional hernia repair, and debridement of abdominal wall. surgery done for EC fistula s/p picc line placed iv antibiotics Zosyn+Diflucan. MANAGEMENT PROFESSOR d/ann d/c TPN Anemia- Hb 9.2 yest ,today 9.4. Leukocytosis is improving. Wound c/s skin sary. On Diflucan. Labs stable. Problems: Comment Review of Relevant I have reviewed the following items ranulfo (where applicable) has been applied. Labs Laboratory Tests Test 08/15/16 20:28 08/16/16 05:15 08/16/16 07:15 08/16/16 11:37 Glucose (Fingerstick) 116 mg/dL (70-99) 134 mg/dL (70-99) 145 mg/dL (70-99) Sodium Level 140 mmol/L (136-145) Potassium Level 3.6 mmol/L (3.5-5.1) Chloride Level 105 mmol/L (98-107) Carbon Dioxide Level 27 mmol/L (21-32) Anion Gap 8 (6-14) Blood Urea Nitrogen 17 mg/dL (7-20) Creatinine 0.7 mg/dL (0.6-1.0) Estimated GFR (Cockcroft-Gault) 84.2 BUN/Creatinine Ratio 24 (6-20) Glucose Level 128 mg/dL (70-99) Calcium Level 8.5 mg/dL (8.5-10.1) Phosphorus Level 3.7 mg/dL (2.6-4.7) Magnesium Level 2.0 mg/dL (1.8-2.4) Total Bilirubin 1.2 mg/dL (0.2-1.0) Aspartate Amino Transf (AST/SGOT) 40 U/L (15-37) Alanine Aminotransferase (ALT/SGPT) 65 U/L (14-59) Alkaline Phosphatase 97 U/L (46-116) Total Protein 6.7 g/dL (6.4-8.2) Albumin 2.4 g/dL (3.4-5.0) Albumin/Globulin Ratio 0.6 (1.0-1.7) Test 08/16/16 16:46 Glucose (Fingerstick) 149 mg/dL (70-99) Microbiology 08/02/16 Gram Stain - Final, Complete Medications Current Medications Morphine Sulfate 2 mg PRN Q4HRS PRN IV PAIN; Start 08/16/16 at 15:00 Oxycodone/ Acetaminophen (Percocet 5/325) 1 tab PRN Q4HRS PRN PO PAIN; Start at 16:00; Stop 08/16/16 at 16:00; Status DC Oxycodone/ Acetaminophen (Percocet 5/325) 1 tab PRN Q4HRS PRN PO PAIN; Start at 16:45 Oxycodone/ Acetaminophen (Percocet 5/325) 2 tab PRN Q4HRS PRN PO PAIN Last administered on 08/16/16t 16:59; Start 08/16/16 at 15:00 Sodium Acetate 50 meq/Sodium Phosphate 10 mmol/ Potassium Chloride 50 meq/ Potassium Phosphate 13.6 mmol/Magnesium Sulfate 16 meq/ Calcium Gluconate 8 meq / Multivitamins 10 ml/Chromium/ Copper/Manganese/ Seleni/Zn 1 ml/ Total Parenteral Nutrition/Amino Acids/Dextrose/ Fat Emuls... 1,512 ml @ 63 mls/hr TPN CONT IV Last administered on 08/15/16t 21:30; Start 08/15/16 at 22:00; Stop 08/16/16 at 21:59 Sodium Acetate 50 meq/Sodium Phosphate 10 mmol/ Potassium Chloride 50 meq/ Potassium Phosphate 13.6 mmol/Magnesium Sulfate 16 meq/ Calcium Gluconate 8 meq / Multivitamins 10 ml/Chromium/ Copper/Manganese/ Seleni/Zn 1 ml/ Total Parenteral Nutrition/Amino Acids/Dextrose/ Fat Emuls... 1,512 ml @ 63 mls/hr TPN CONT IV ; Start 08/16/16 at 22:00; Stop 08/17/16 at 21:59 Vitals/I & O Vital Sign - Last 24 Hours 08/15/16 08/15/16 08/15/16 08/16/16 19:00 19:30 23:00 03:01 Temp 98.4 98.1 98.3 98.4 98.1 98.3 Pulse 101 98 102 Resp 22 20 20 B/P (MAP) 181/60 (100) 178/89 (118) 187/81 (116) Pulse Ox 93 94 93 O2 Delivery Room Air Room Air Room Air Room Air 08/16/16 08/16/16 08/16/16 08/16/16 07:00 07:26 11:00 11:51 Temp 98.3 98.6 98.3 98.6 Pulse 106 101 Resp 22 22 B/P (MAP) 156/85 (108) 154/74 (100) Pulse Ox 95 95 95 O2 Delivery Room Air Room Air Room Air Room Air O2 Flow Rate 1.0 08/16/16 08/16/16 08/16/16 12:53 15:00 16:59 Temp 98.4 98.4 Pulse 105 Resp 22 B/P (MAP) 163/82 (109) Pulse Ox 95 91 91 O2 Delivery Room Air Room Air Room Air O2 Flow Rate 1.0 Intake and Output 08/15/16 08/15/16 08/16/16 15:00 23:00 07:00 Intake Total 260 ml Balance 260 ml CHRISTOPH LE MD Aug 16, 2016 17:28
[2016-08-16 19:00] VITALS: BP 152/77
[2016-08-16] MEDS ORDERED: DEXTROSE 70% IV SCH ×11 (22:00)
[2016-08-16] MEDS ORDERED: [UNRECOGNIZED DRUG - OTHER] IV SCH ×11 (22:00)
[2016-08-16] MEDS ORDERED: TOTAL PARENTERAL NUTRITION IV SCH ×11 (22:00)
[2016-08-16] MEDS ORDERED: AMINO ACIDS IV SCH ×11 (22:00)
[2016-08-16 23:14] VITALS: BP 143/73
[2016-08-17 03:12] VITALS: BP 158/87
[2016-08-17 07:00] VITALS: BP 170/75
[2016-08-17] MEDS: INSULIN ASPART 300 UNITS/3 ML INSULN.PEN SQ SCH ×2 (08:00→10:12)
--- NOTE | 2016-08-17 08:28 | PDOC ---
Infectious Disease Note Subjective Subjective feeling good ROS ROS GEN: Denies fevers, chills, sweats HEENT: Denies blurred vision, sore throat CV: Denies chest pain RESP: Denies shortness of air, cough GI: Denies n/v/d NEURO: Denies confusion, dizziness MSK: Denies weakness, joint pain/swelling Vital Sign Vital Signs Vital Signs Date Time Temp Pulse Resp B/P (MAP) Pulse Ox O2 Delivery O2 Flow Rate FiO2 08/17/16 07:00 97.8 111 22 170/75 (106) 88 Room Air 97.8 08/16/16 18:00 1.0 Physical Exam PHYSICAL EXAM GENERAL: NAD, Alert HEENT: PERRL, OC/OP NECK: Supple, no JVD, no LN LUNGS: Clear HEART: S1S2, no gallop, no murmur ABD: Soft, NT, no organomegaly, no rebound EXT: No edema, no cyanosis WINDOW/DISTRIBUTION CLERK: Alert, oriented x 3, no focal neurologic deficit SKIN: No rash IV: ok Labs Lab Laboratory Tests Test 08/16/16 11:37 08/16/16 16:46 08/16/16 20:46 Glucose (Fingerstick) 145 mg/dL (70-99) 149 mg/dL (70-99) 135 mg/dL (70-99) Objective Assessment EC fistula. s/p surgery s/p Expl lap, MACIEL, small-bowel resection, removal of mesh, ventral incisional hernia repair, and debridement of abdominal wall, 08/10 Leukocytosis, post-op, better Cellulitis/irritation by bile leak. improved Hernia surgery 2 yrs ago with mesh DM Subdural hematoma Plan Plan of Care off antibiotics advance diet as per surgery d/c ok D/w MARIIA LAURENT MD Aug 17, 2016 08:28
[2016-08-17] MEDS: LUMIGAN EYE DROPS OD SCH (09:00)
[2016-08-17] MEDS: COMBIGAN EYE DROPS OD SCH (09:00)
[2016-08-17] MEDS: BENZONATATE 100 MG CAPSULE. PO SCH (09:00)
[2016-08-17] MEDS: PANTOPRAZOLE IV PUSH 40 MG VIAL. IVP SCH (09:05)
[2016-08-17] MEDS: oxyCODONE/APAP 5/325 1 TAB TABLET PO PRN ×2 (09:05→13:32)
[2016-08-17] MEDS: BRIMONIDINE 0.2% OPHTH SOLUTION 5ML BOTTLE. OD SCH (09:05)
[2016-08-17] MEDS: GLIMEPIRIDE 2 MG TABLET. PO SCH (09:06)
[2016-08-17] MEDS: predniSONE 20 MG TABLET PO SCH (09:06)
[2016-08-17] MEDS: AMITRIPTYLINE HCL 10 MG TABLET. PO SCH (09:06)
[2016-08-17] MEDS: ENOXAPARIN 40 MG/0.4 ML SYRINGE. SQ SCH (09:07)
--- NOTE | 2016-08-17 09:38 | PDOC ---
SURGICAL PROGRESS NOTE Subjective tolerating diet bowels functioning pain managed ambulating breathing at baseline Vital Signs Vital Signs Date Time Temp Pulse Resp B/P (MAP) Pulse Ox O2 Delivery O2 Flow Rate FiO2 08/17/16 09:05 88 Room Air 1.0 08/17/16 07:00 97.8 111 22 170/75 (106) 97.8 I&O Intake and Output 08/17/16 07:00 Intake Total 286 ml Balance 286 ml Intake Oral 286 ml # Voids 5 General: Alert, Oriented X3, Cooperative, No acute distress Abdomen: Soft, Other (ND, incision clean, no nina drain in place) Labs Laboratory Tests Test 08/15/16 11:08 08/15/16 16:12 08/15/16 20:28 08/16/16 05:15 Glucose (Fingerstick) 144 mg/dL (70-99) 166 mg/dL (70-99) 116 mg/dL (70-99) Sodium Level 140 mmol/L (136-145) Potassium Level 3.6 mmol/L (3.5-5.1) Chloride Level 105 mmol/L (98-107) Carbon Dioxide Level 27 mmol/L (21-32) Anion Gap 8 (6-14) Blood Urea Nitrogen 17 mg/dL (7-20) Creatinine 0.7 mg/dL (0.6-1.0) Estimated GFR (Cockcroft-Gault) 84.2 BUN/Creatinine Ratio 24 (6-20) Glucose Level 128 mg/dL (70-99) Calcium Level 8.5 mg/dL (8.5-10.1) Phosphorus Level 3.7 mg/dL (2.6-4.7) Magnesium Level 2.0 mg/dL (1.8-2.4) Total Bilirubin 1.2 mg/dL (0.2-1.0) Aspartate Amino Transf (AST/SGOT) 40 U/L (15-37) Alanine Aminotransferase (ALT/SGPT) 65 U/L (14-59) Alkaline Phosphatase 97 U/L (46-116) Total Protein 6.7 g/dL (6.4-8.2) Albumin 2.4 g/dL (3.4-5.0) Albumin/Globulin Ratio 0.6 (1.0-1.7) Test 08/16/16 07:15 08/16/16 11:37 08/16/16 16:46 08/16/16 20:46 Glucose (Fingerstick) 134 mg/dL (70-99) 145 mg/dL (70-99) 149 mg/dL (70-99) 135 mg/dL (70-99) Laboratory Tests Test 08/16/16 11:37 08/16/16 16:46 08/16/16 20:46 Glucose (Fingerstick) 145 mg/dL (70-99) 149 mg/dL (70-99) 135 mg/dL (70-99) Problem List s/p xlap plans for DC home will check KUB to ensure no FB--nina now not in place today, nursing reports did not witness it fall out or removed Problems: LUDMILA BROOKS APRN Aug 17, 2016 09:38
--- NOTE | 2016-08-17 09:40 | PDOC ---
PROGRESS NOTES Subjective Subjective doing well ,ready to go home Objective Objective Vital Signs Date Time Temp Pulse Resp B/P (MAP) Pulse Ox O2 Delivery O2 Flow Rate FiO2 08/17/16 09:05 88 Room Air 1.0 08/17/16 07:00 97.8 111 22 170/75 (106) 97.8 Intake and Output 08/17/16 07:00 Intake Total 286 ml Balance 286 ml Intake Oral 286 ml # Voids 5 Physical Exam Abdomen: Soft, Other (ND, incision clean, no nina drain in place) Heart: Regular rate, Normal S1, Normal S2 Extremities: No clubbing General: Alert, Oriented X3, Cooperative, No acute distress HEENT: Other (ng-tannish drainage ) Lungs: Other (a little tachypneic) MUSCULOSKELETAL: No deformity Neck: Supple Neuro: Normal speech Psych/Mental Status: Mental status NL COMMENT dressings abd wall, Assessment Assessment FINAL IMPRESSION: 1. Enterocutaneous fistula. 2. Drainage from the umbilicus with surrounding maceration, erythema of the abdominal wall. 3. History of abdominal surgery for hernia with? mesh, 3 years ago. 4. History of cerebrovascular accident and subdural hematoma in the past. 5. Chronic obstructive pulmonary disease, smoker. PLAN: POD #7..d/c home today PROCEDURE: Exploratory laparotomy, lysis of adhesion, small-bowel resection, removal of mesh, ventral incisional hernia repair, and debridement of abdominal wall. 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 Labs Laboratory Tests Test 08/16/16 11:37 08/16/16 16:46 08/16/16 20:46 Glucose (Fingerstick) 145 mg/dL (70-99) 149 mg/dL (70-99) 135 mg/dL (70-99) Microbiology 08/02/16 Gram Stain - Final, Complete Medications Current Medications Morphine Sulfate 2 mg PRN Q4HRS PRN IV PAIN; Start 08/16/16 at 15:00 Oxycodone/ Acetaminophen (Percocet 5/325) 1 tab PRN Q4HRS PRN PO PAIN; Start at 16:00; Stop 08/16/16 at 16:00; Status DC Oxycodone/ Acetaminophen (Percocet 5/325) 1 tab PRN Q4HRS PRN PO PAIN; Start at 16:45 Oxycodone/ Acetaminophen (Percocet 5/325) 2 tab PRN Q4HRS PRN PO PAIN Last administered on 08/17/16t 09:05; Start 08/16/16 at 15:00 Sodium Acetate 50 meq/Sodium Phosphate 10 mmol/ Potassium Chloride 50 meq/ Potassium Phosphate 13.6 mmol/Magnesium Sulfate 16 meq/ Calcium Gluconate 8 meq / Multivitamins 10 ml/Chromium/ Copper/Manganese/ Seleni/Zn 1 ml/ Total Parenteral Nutrition/Amino Acids/Dextrose/ Fat Emuls... 1,512 ml @ 63 mls/hr TPN CONT IV ; Start 08/16/16 at 22:00; Stop 08/16/16 at 22:00; Status DC Vitals/I & O Vital Sign - Last 24 Hours 08/16/16 08/16/16 08/16/16 08/16/16 11:00 11:51 12:53 15:00 Temp 98.6 98.4 98.6 98.4 Pulse 101 105 Resp 22 22 B/P (MAP) 154/74 (100) 163/82 (109) Pulse Ox 95 95 95 91 O2 Delivery Room Air Room Air Room Air Room Air O2 Flow Rate 1.0 08/16/16 08/16/16 08/16/16 08/16/16 16:59 18:00 19:00 20:00 Temp 98.6 98.6 Pulse 104 Resp 18 B/P (MAP) 152/77 (102) Pulse Ox 91 91 O2 Delivery Room Air Room Air Room Air O2 Flow Rate 1.0 1.0 08/16/16 08/16/16 08/16/16 08/17/16 21:37 22:37 23:14 03:12 Temp 98.1 97.9 98.1 97.9 Pulse 95 92 Resp 16 16 18 18 B/P (MAP) 143/73 (96) 158/87 (110) Pulse Ox 91 91 90 91 O2 Delivery Room Air Room Air Room Air Room Air 08/17/16 08/17/16 07:00 09:05 Temp 97.8 97.8 Pulse 111 Resp 22 B/P (MAP) 170/75 (106) Pulse Ox 88 88 O2 Delivery Room Air Room Air O2 Flow Rate 1.0 Intake and Output 08/16/16 08/16/16 08/17/16 15:00 23:00 07:00 Intake Total 30 ml 16 ml 240 ml Balance 30 ml 16 ml 240 ml CHRISTOPH LE MD Aug 17, 2016 09:40
--- NOTE | 2016-08-17 09:48 | PDOC ---
Provider Note Provider Note Discharge summary dictated. #[id number] CHRISTOPH LE MD Aug 17, 2016 09:48
--- NOTE | 2016-08-17 09:57 | RAD ---
Postop. Assess for potential foreign body. Supine films of the abdomen were obtained. The abdominal gas pattern is unremarkable. There is a density just to the right of midline compatible with a Huntley drain. No unexpected metallic foreign body is seen. Clips are noted in the gallbladder fossa. IMPRESSION: No unexpected finding seen on KUB
[2016-08-17 11:00] VITALS: BP 105/70
--- NOTE | 2016-08-17 12:31 | DS ---
DATE OF DISCHARGE: 08/17/2016 REASON FOR ADMISSION TO THE HOSPITAL: Enterocutaneous fistula, drainage from the umbilicus, failure of outpatient treatment. CONSULTATIONS: 1. Dr. Farooq Wang. 2. Dr. Salomón Bass, Infectious Disease. PROCEDURES DONE: 1. CT scan. 2. Exploratory laparotomy, lysis of adhesions, small bowel resection, removal of mesh, ventral incisional hernia repair, debridement of abdominal wall, Dr. Wang. COMPLICATIONS: None. HOSPITAL COURSE: The patient is a 65-year-old female with a history of ventilator hernia repair done with mesh couple of years ago at [facility] and she was having drainage and culture showed Proteus and was on oral antibiotics, did not improve, then it was getting worse, was admitted to the hospital, was seen by Infectious Disease, was put on vancomycin and Zosyn. c/s showed Proteus, Enterococcus faecalis and the patient had a CT scan which shows enterocutaneous fistula. The patient was taken to surgery, had exploratory laparotomy; lysis of adhesions; small bowel resection, part of it; removal of a mesh; ventral incisional hernia repair; and debridement of the abdominal wall. The patient was put on TPN, IV antibiotics were continued and she had a normal postoperative course without any problems. She was on [employer]ATING [employer], TPN, and IV antibiotics. On the whole, patient's condition improved and she was discharged without any antibiotics and follow up his office. FINAL DIAGNOSES: Enterocutaneous fistula. The patient underwent exploratory laparotomy, lysis of adhesions, part of the small bowel resection, removal of a mesh, ventral incisional hernia repair, and debridement of the abdominal wall. Chronic conditions including hypertension, COPD, hyperlipidemia, history of subdural hematoma in the past. DISPOSITION: Home. DISCHARGE MEDICATIONS: See MRAD. PLAN: Follow up with surgeon in 1 week and PCP in 2 weeks. CHRISTOPH LE MD DR: PURVI/genesis JOB#: [id number] / [id number] [facility] CENTERAmada
== END 2016-08-17 13:50 | disposition home or self-care (01) | DRG 330 ==
LOC: 4 NORTH 16:22
PROVIDERS: ADMIT Internal Medicine; ATTEND Internal Medicine
PROC: 02H633Z Insertion of Infusion Device into Right Atrium, Percutaneous Approach (ICD-10-PCS; 2016-08-05)
PROC: B2141ZZ Fluoroscopy of Right Heart using Low Osmolar Contrast (ICD-10-PCS; 2016-08-05)
PROC: B244ZZZ Ultrasonography of Right Heart (ICD-10-PCS; 2016-08-05)
PROC: 0DB80ZZ Excision of Small Intestine, Open Approach (ICD-10-PCS; 2016-08-10)
PROC: 0WUF0JZ Supplement Abdominal Wall with Synthetic Substitute, Open Approach (ICD-10-PCS; 2016-08-10)
PROC: 0WPF0JZ Removal of Synthetic Substitute from Abdominal Wall, Open Approach (ICD-10-PCS; 2016-08-10)
PROC: 0DN80ZZ Release Small Intestine, Open Approach (ICD-10-PCS; principal; 2016-08-10 10:15)
DX: K63.2 Fistula of intestine (principal); L03.311 Cellulitis of abdominal wall; Z68.41 Body mass index [BMI] 40.0-44.9, adult; E66.01 Morbid (severe) obesity due to excess calories; E78.5 Hyperlipidemia, unspecified; E11.9 Type 2 diabetes mellitus without complications; D64.9 Anemia, unspecified; K21.9 Gastro-esophageal reflux disease without esophagitis; J44.9 Chronic obstructive pulmonary disease, unspecified; I10 Essential (primary) hypertension; H54.42 Blindness, left eye, normal vision right eye; F17.200 Nicotine dependence, unspecified, uncomplicated; K43.2 Incisional hernia without obstruction or gangrene; K66.0 Peritoneal adhesions (postprocedural) (postinfection); Z82.3 Family history of stroke; Z86.73 Personal history of transient ischemic attack (TIA), and cerebral infarction without residual deficits; Z90.710 Acquired absence of both cervix and uterus; Z83.3 Family history of diabetes mellitus
CPT/HCPCS: 36415; 36569; 74000; 74177; 76937; 77001; 80048; 80053; 82040; 82962; 83735; 84100; 84478; 85007; 85027; 85610; 87071; 87075; 87186; 87205; 88307; 94250; 94640; 94760; C1751; C1892; C9113; G0238; J0610; J0694; J0780; J1100; J1170; J1450; J1650; J1815; J2250; J2370; J2405; J2543; J2704; J2710; J3010; J3370; J3475; J3490; J7030; J7040; J7120; J7512; J8597; Q0163; Q9966; Q9967; 97110; 97116; 97530; 97535

== ENCOUNTER → 2016-11-10 | Outpatient (CLI) | payer OTHER, MEDICARE ==
[~2016-11-10] MED LIST changes: +AMIT10TA PO; +BENZ100C15 PO; -BENZ100C2 PO; +BIMA2.5D OD; +BRIM5DRO2 OD; +DIPH25CA3 PO; +GLIM2TAB2 PO; +PANT40TA5 PO
--- NOTE | 2016-11-11 09:46 | RAD ---
Exam performed: X-ray abdomen KUB. Clinical Indication: Lower abdominal pain for a long time Date of Service: 11/10/16 Comparison: KUB from 08/17/16 Findings: Supine radiograph of the abdomen and pelvis reveals no evidence of ileus or obstruction. Definite pathologic calcification or organomegaly is not identified. Previous cholecystectomy. Spondylotic changes involving the lumbar spine. Impression: 1. No acute abnormality seen in the abdomen KUB
== END | disposition home or self-care (01) ==
LOC: RAD 16:54
PROVIDERS: ATTEND Internal Medicine
DX: R10.30 Lower abdominal pain, unspecified (principal)
CPT/HCPCS: 74000

== ENCOUNTER 2016-12-07 08:06 | Observation (INO) | payer OTHER, MEDICARE ==
[~2016-12-07] VITALS: Ht 162.6 cm; Wt 108.0 kg
[2016-12-07] VITALS (10 sets, daily range): BP systolic 112–166; BP diastolic 54–84
[~2016-12-07 08:06] MED LIST changes: +BUPIVAC MPF-EPI 0.5%-1:200000 10 ML VIAL. ONE; +CALC600T4 PO; +IV RINGERS,LACTATED 1000ML 1,000 ML IV SCH; +LIDOCAINE 1% PF 2 ML VIAL. ID PRN; +MECL25TA3 PO; +MELO15TA23 PO; +MORPHINE SULFATE 4 MG/ML DISP.SYRIN. IV PRN; +MULT1CAP15 PO; +ONDANSETRON PF 4 MG/2 ML VIAL. IV PRN; +PROC5TAB14 PO; +PROCHLORPERAZINE 10 MG/2 ML VIAL. IV PRN; +fentaNYL PF VIAL 100 MCG/2 ML VIAL IV PRN
[2016-12-07] MEDS ORDERED: MIDAZOLAM HCL/PF 2 MG/2 ML VIAL. ONE (08:37)
[2016-12-07] MEDS ORDERED: ROCURONIUM 100 MG/10 ML VIAL. ONE (08:37)
[2016-12-07] MEDS ORDERED: ONDANSETRON PF 4 MG/2 ML VIAL. ONE (08:37)
[2016-12-07] MEDS ORDERED: fentaNYL PF VIAL 100 MCG/2 ML VIAL ONE (08:37)
[2016-12-07] MEDS ORDERED: LIDOCAINE 2% PF Vial for OR 5 ML VIAL. ONE (08:37)
[2016-12-07] MEDS ORDERED: DEXAMETHASONE SOD PHOS 20 MG/5 ML VIAL. ONE (08:37)
[2016-12-07] MEDS ORDERED: PROPOFOL 20 ML IV ONE (08:37)
--- NOTE | 2016-12-07 09:29 | PDOC ---
SURGICAL PROGRESS NOTE Subjective Pre-Op Note 66 yo F with recurrent VIH Pt seen and reexamined. Hernia marked out Office note H&P reviewed and unchanged. R/B/A d/w pt and pt's . Risks, including, but not limited to: bleeding , infection, damage to surrounding structures, risk of anesthesia, risk of hernia recurrence. They appear to understand, their questions are answered and they agree to proceed. Vital Signs Vital Signs Date Time Temp Pulse Resp B/P (MAP) Pulse Ox O2 Delivery O2 Flow Rate FiO2 12/07/16 08:39 97.8 95 97.8 12/07/16 08:37 20 175/78 Room Air DANYA EPSTEIN MD Dec 07, 2016 09:29
[2016-12-07] MEDS ORDERED: PHENYLEPHRINE in 0.9% NACL PF 1 MG/10 ML DISP.SYRIN. IV ONE (10:02)
[2016-12-07] MEDS ORDERED: NEOSTIGMINE 10 MG/10 ML VIAL. ONE (10:59)
[2016-12-07] MEDS ORDERED: GLYCOPYRROLATE 1 MG/5 ML VIAL. ONE (10:59)
[2016-12-07] MEDS ORDERED: KETOROLAC 30 MG/ML INJ FOR OR. INJ ONE (11:01)
[2016-12-07] MEDS ORDERED: SEVOFLURANE 61 TO 120 MINUTES. IH ONE (11:04)
[2016-12-07] MEDS ORDERED: IV RINGERS,LACTATED 1000ML 1,000 ML IV SCH (11:18)
--- NOTE | 2016-12-07 11:26 | PDOC4 ---
OPERATIVE NOTE Date: Date: Dec 07, 2016 Pre-Op Diagnosis: recurrent incisional hernia Post-Op Diagnosis: same Procedure Performed: Incisional hernia repair Surgeon: Farooq Epstein Anesthesia Type: GETA Blood Loss: 50 Specimans Obtained: none Findings: incisional hernia, viable bowel, extensive adhesions Complications: none Operative Note: After obtaining informed consent, patient was taken to the OR, induced under GETA and prepped in the usual fashion. Previous incision was reopened using cautery. Dissection continued down to hernia sac, which was opened sharply. Hernia sac dissected out and discarded. Extensive adhesions noted, these were cleared off circumferentially for several centimeters of the fascia. The underlying bowel and viscera were normal in appearance. Fascia was reapproximated with 0 PDS x 2. Tracy placed in subcutaneous area. 3 0 Vicryl and 4 0 monocryl used to repair skin. Dressing applied. Patient tolerated procedure well and sent to PACU in stable condition. No immediate complications. FAROOQ EPSTEIN MD Dec 07, 2016 11:26
[2016-12-07] MEDS ORDERED: 0.9 % SODIUM CHLORIDE 10 ML DISP.SYRIN. IV PRN (11:30)
[2016-12-07] MEDS ORDERED: ONDANSETRON PF 4 MG/2 ML VIAL. IV PRN (11:30)
[2016-12-07] MEDS ORDERED: MORPHINE SULFATE 4 MG/ML DISP.SYRIN. IV PRN (11:30)
[2016-12-07] MEDS: fentaNYL PF VIAL 100 MCG/2 ML VIAL IV PRN ×4 (11:42→12:50)
[2016-12-07] MEDS ORDERED: ALBUTEROL SULFATE 2.5 MG/3 ML NEBU. NEB ONE (12:15)
[2016-12-07] MEDS: HYDROmorphone 2 MG/ML VIAL IV PRN ×2 (12:42→13:14)
[2016-12-07] MEDS ORDERED: BRIN10DR OD (14:12)
[2016-12-07] MEDS ORDERED: AMIT10TA PO (14:12)
[2016-12-07] MEDS: HYDROcodone/APAP 5/325MG 1 TAB TABLET PO PRN ×2 (14:45→20:33)
[2016-12-07] MEDS ORDERED: DEXTROSE 50% 25 GM / 50ML DISP.SYRIN. IV PRN (18:00)
[2016-12-07] MEDS ORDERED: ALBUTEROL SULFATE 2.5 MG/3 ML NEBU. NEB PRN ×2 (18:15)
[2016-12-07] MEDS ORDERED: ENOXAPARIN 40 MG/0.4 ML SYRINGE. SQ SCH (21:00)
[2016-12-07] MEDS: SENNOSIDES/DOCUSATE 8.6/50MG TABLET. PO SCH (21:00)
[2016-12-07] MEDS: TIMOLOL 0.5% OPHTH SOLUTION 5ML BOTTLE. OD SCH (21:00)
[2016-12-07] MEDS: LATANOPROST 0.005% OPHTH SOLUTION 2.5ML BOTTLE. OD SCH (21:00)
[2016-12-07] MEDS ORDERED: AMITRIPTYLINE HCL 10 MG TABLET. PO SCH (21:00)
[2016-12-07] MEDS: DORZOLAMIDE 2% OPHTH SOLUTION 10ML BOTTLE. OD SCH (21:00)
[2016-12-07] MEDS: BRIMONIDINE 0.2% OPHTH SOLUTION 5ML BOTTLE. OD SCH (21:16)
[2016-12-08 02:41] VITALS: BP 132/65
[2016-12-08 07:05] VITALS: BP 148/74
[2016-12-08] MEDS ORDERED: INSULIN ASPART 300 UNITS/3 ML INSULN.PEN SQ SCH (08:00)
[2016-12-08] MEDS: HYDROcodone/APAP 5/325MG 1 TAB TABLET PO PRN (08:37)
[2016-12-08] MEDS: DORZOLAMIDE 2% OPHTH SOLUTION 10ML BOTTLE. OD SCH (09:00)
[2016-12-08] MEDS: TIMOLOL 0.5% OPHTH SOLUTION 5ML BOTTLE. OD SCH (09:00)
[2016-12-08] MEDS: BRIMONIDINE 0.2% OPHTH SOLUTION 5ML BOTTLE. OD SCH (09:00)
[2016-12-08] MEDS: SENNOSIDES/DOCUSATE 8.6/50MG TABLET. PO SCH (09:00)
[2016-12-08] MEDS: LATANOPROST 0.005% OPHTH SOLUTION 2.5ML BOTTLE. OD SCH (09:00)
--- NOTE | 2016-12-08 09:13 | PDOC ---
SURGICAL PROGRESS NOTE Subjective Pt without c/o, wyatt PO, wants to d/c Vital Signs Vital Signs Date Time Temp Pulse Resp B/P (MAP) Pulse Ox O2 Delivery O2 Flow Rate FiO2 12/08/16 08:37 Room Air 12/08/16 07:05 97.6 90 17 148/74 (98) 92 97.6 12/07/16 20:00 3.0 General: Alert, Oriented X3, Cooperative, No acute distress Abdomen: Soft, No tenderness, Other (dressing c/d/i) Labs Laboratory Tests Test 12/07/16 11:49 12/07/16 16:13 12/07/16 20:26 12/08/16 07:06 Glucose (Fingerstick) 145 mg/dL (70-99) 186 mg/dL (70-99) 216 mg/dL (70-99) 133 mg/dL (70-99) Laboratory Tests Test 12/07/16 11:49 12/07/16 16:13 12/07/16 20:26 12/08/16 07:06 Glucose (Fingerstick) 145 mg/dL (70-99) 186 mg/dL (70-99) 216 mg/dL (70-99) 133 mg/dL (70-99) Problem List s/p VIH repair d/c home f/u in two weeks Problems: DANYA EPSTEIN MD Dec 08, 2016 09:13
--- NOTE | 2016-12-08 10:24 | PDOC ---
Provider Note Provider Note pt well known to me, admitted for hernia repair, yesterday . doing well , going home today. no need for consult CHRISTOPH LE MD Dec 08, 2016 10:24
== END 2016-12-08 10:23 | disposition home or self-care (01) ==
LOC: SURG 08:06 → 6 SOUTH 12:33
PROVIDERS: ADMIT Surgery; ATTEND Surgery
DX: K43.2 Incisional hernia without obstruction or gangrene (principal); K66.0 Peritoneal adhesions (postprocedural) (postinfection)
CPT/HCPCS: 49560; 82962; 94250; 94640; 96372; G0378; G0379; J0690; J1100; J1170; J1650; J1815; J1885; J2250; J2370; J2405; J2704; J2710; J3010; J3490; J7120; J2001

== ENCOUNTER 2017-11-08 11:32 | Inpatient (IN) | payer OTHER, MEDICARE ==
[~2017-11-08] VITALS: Ht 163.8 cm; Wt 103.0 kg
[~2017-11-08 11:32] MED LIST changes: +BENZ-8 PO; -BENZ100C15 PO; +BRIN10DR OD; -BUPIVAC MPF-EPI 0.5%-1:200000 10 ML VIAL. ONE; +IBUP-1007 PO; -IV RINGERS,LACTATED 1000ML 1,000 ML IV SCH; -LIDOCAINE 1% PF 2 ML VIAL. ID PRN; -MORPHINE SULFATE 4 MG/ML DISP.SYRIN. IV PRN; -ONDANSETRON PF 4 MG/2 ML VIAL. IV PRN; -PROCHLORPERAZINE 10 MG/2 ML VIAL. IV PRN; -fentaNYL PF VIAL 100 MCG/2 ML VIAL IV PRN
[2017-11-08] MEDS ORDERED: IV NORMAL SALINE 1000ML BAG 1,000 ML IV SCH (12:27)
[2017-11-08 12:38] LABS: BILIRUBIN,URINE MODERATE (NEG); CLARITY,URINE CLEAR; COLOR,URINE AMBER; NITRITE,URINE NEGATIVE (NEG); PROTEIN,URINE 30 mg/dL (NEG-TRACE)
--- NOTE | 2017-11-08 12:55 | PHYS DOC ---
Past Medical History Past Medical History: Diabetes-Type II Additional Past Medical Histor: subdural hematoma Past Surgical History: Hysterectomy, Other Additional Past Surgical Histo: subdural hematoma, hernia repair Additional Information: Pack a day Alcohol Use: None Drug Use: None Adult General Chief Complaint Chief Complaint: POST-OP PROBLEM HPI HPI Patient is a 67 old female who presents to the emergency department for evaluation, along with her . She underwent a ventral hernia repair about a month ago in this facility, and over the past few days has been having increasing abdominal discomfort, and also developed a small drainage tract along her wound anteriorly. The area is about the size of a duncan and has been having some serosanguineous drainage. The patient has not had any fever or lethargy. She does appear somewhat tachycardic and feels warm to the touch upon arrival in the emergency department. There is some diffuse erythema around her wound is well. She does have some cognitive delay secondary to prior brain surgery for a subdural hemorrhage but her mental status has been similar to baseline according to her . Palpation of the affected area on her abdominal wall seems to worsen her pain. There are no alleviating factors to her symptoms. Review of Systems Review of Systems Constitutional: Denies fever or chills [] Eyes: Denies change in visual acuity, redness, or eye pain [] HENT: Denies nasal congestion or sore throat [] Respiratory: Denies cough or shortness of breath [] Cardiovascular: The patient denies any shortness of breath, chest pain, palpitations, or orthopnea [] GI: Denies nausea, vomiting, bloody stools or diarrhea. Has had increasing abdominal pain over the past several days. [] : Denies dysuria or hematuria [] Musculoskeletal: Denies back pain or joint pain [] Integument: Denies rash or skin lesions [] Neurologic: Denies headache, focal weakness or sensory changes [] Endocrine: Denies polyuria or polydipsia [] All other systems were reviewed and found to be within normal limits, except as documented in this note. Current Medications Current Medications Current Medications Medications (Trade) Dose Ordered Sig/Maite Start Time Stop Time Status Last Admin Dose Admin Info (CONTRAST GIVEN -- Rx MONITORING) 1 each PRN DAILY PRN 11/08/17 13:00 11/10/17 12:59 Iohexol (Omnipaque 300 Mg/ml) 75 ml 1X ONCE 11/08/17 13:00 11/08/17 13:01 DC 11/08/17 13:00 75 ML Sodium Chloride 1,000 ml @ 1,000 mls/hr Q1H 11/08/17 12:27 11/08/17 13:26 DC 11/08/17 13:45 1,000 MLS/HR Allergies Allergies Allergies Coded Allergies Type Severity Reaction Last Updated Verified No Known Drug Allergies 09/27/17 No Physical Exam Physical Exam PHYSICAL EXAM: CONSTITUTIONAL: Well developed, well nourished HEAD: normocephalic, atraumatic EENT: PERRL, EOMI. Conjunctivae normal color, sclerae non-icteric; moist mucous membranes. NECK: Supple, non-tender; no meningismus. LUNGS: Lungs CTA, breathing even and unlabored. Normal air movement. HEART: Regular rate and rhythm, no murmur CHEST: No deformity; non-tender ABDOMEN: The abdomen is soft, there is mild diffuse tenderness to palpation of the abdomen, with some firmness to palpation of the left mid and lower abdomen, with a mostly intact abdominal wound. On the superior aspect of the wound, there is a nickel sized area of focal dehiscence/erosion, with some serosanguineous drainage. Normal bowel sounds are present. EXTREM: Normal ROM; no deformity, no calf tenderness. Normal pulses palpable in all extremities. There is no pedal edema. SKIN: No rash; no diaphoresis NEURO: Alert; normal speech and cognition; CN's grossly intact; strength grossly intact without focal deficit. BACK: No CVA TTP. Current Patient Data Vital Signs Vital Signs Date Time Temp Pulse Resp B/P (MAP) Pulse Ox O2 Delivery O2 Flow Rate FiO2 11/08/17 14:32 113 22 220/86 (130) 93 Room Air 11/08/17 11:53 99.0 99.0 Lab Values Laboratory Tests Test 11/08/17 12:15 11/08/17 13:12 Urine Collection Type U cath Urine Color Glendy Urine Clarity Clear Urine pH 6.0 Urine Specific Magnolia >=1.030 Urine Protein 30 mg/dL (NEG-TRACE) Urine Glucose (UA) Negative mg/dL (NEG) Urine Ketones (Stick) Trace mg/dL (NEG) Urine Blood Negative (NEG) Urine Nitrite Negative (NEG) Urine Bilirubin Moderate (NEG) Urine Urobilinogen Dipstick 2.0 mg/dL (0.2 mg/dL) Urine Leukocyte Esterase Trace (NEG) Urine RBC 1-2 /HPF (0-2) Urine WBC 0 /HPF (0-4) Urine Squamous Epithelial Cells Few /LPF Urine Bacteria 0 /HPF (0-FEW) Urine Hyaline Casts Few /HPF Urine Mucus Marked /LPF White Blood Count 16.8 x10^3/uL (4.0-11.0) H Red Blood Count 4.74 x10^6/uL (3.50-5.40) Hemoglobin 13.1 g/dL (12.0-15.5) Hematocrit 39.8 % (36.0-47.0) Mean Corpuscular Volume 84 fL (79-100) Mean Corpuscular Hemoglobin 28 pg (25-35) Mean Corpuscular Hemoglobin Concent 33 g/dL (31-37) Red Cell Distribution Width 13.6 % (11.5-14.5) Platelet Count 370 x10^3/uL (140-400) Neutrophils (%) (Auto) 84 % (31-73) H Lymphocytes (%) (Auto) 6 % (24-48) L Monocytes (%) (Auto) 8 % (0-9) Eosinophils (%) (Auto) 0 % (0-3) Basophils (%) (Auto) 1 % (0-3) Neutrophils # (Auto) 14.2 x10^3uL (1.8-7.7) H Lymphocytes # (Auto) 1.1 x10^3/uL (1.0-4.8) Monocytes # (Auto) 1.4 x10^3/uL (0.0-1.1) H Eosinophils # (Auto) 0.0 x10^3/uL (0.0-0.7) Basophils # (Auto) 0.1 x10^3/uL (0.0-0.2) Platelet Estimate Pending Sodium Level 141 mmol/L (136-145) Potassium Level 3.2 mmol/L (3.5-5.1) L Chloride Level 106 mmol/L (98-107) Carbon Dioxide Level 26 mmol/L (21-32) Anion Gap 9 (6-14) Blood Urea Nitrogen 14 mg/dL (7-20) Creatinine 1.0 mg/dL (0.6-1.0) Estimated GFR (Cockcroft-Gault) 55.5 BUN/Creatinine Ratio 14 (6-20) Glucose Level 153 mg/dL (70-99) H Lactic Acid Level 1.1 mmol/L (0.4-2.0) Calcium Level 8.8 mg/dL (8.5-10.1) Total Bilirubin 1.6 mg/dL (0.2-1.0) H Aspartate Amino Transferase (AST) 11 U/L (15-37) L Alanine Aminotransferase (ALT) 20 U/L (14-59) Alkaline Phosphatase 92 U/L (46-116) Total Protein 7.7 g/dL (6.4-8.2) Albumin 3.0 g/dL (3.4-5.0) L Albumin/Globulin Ratio 0.6 (1.0-1.7) L Lipase 104 U/L (73-393) Laboratory Tests 11/08/17 13:12 Laboratory Tests 11/08/17 13:12 EKG EKG [] Radiology/Procedures Radiology/Procedures [PROCEDURE: CT ABD PELV W/ IV CONTRST ONLY CT of the abdomen and pelvis with contrast, 11/08/2017: HISTORY: Postop drainage, possible abscess, ventral hernia repair Multidetector CT imaging was performed following an IV bolus injection of iodinated contrast material. No oral contrast material was administered for this study. The gallbladder is surgically absent. No hepatic abnormality is seen. The pancreas is unremarkable. The spleen is of normal size. There is bilateral renal cortical scarring. A tiny subcentimeter medium density cortical nodule arising from the posterior aspect of the left kidney may be a complicated cyst. A solid nodule cannot be entirely excluded. There is no evidence of renal obstruction. The adrenal glands are unremarkable. There is moderate aortoiliac calcific plaquing. No abdominal or pelvic adenopathy is seen. The uterus is surgically absent. The bowel loops are not dilated. There are several surgical sutures in the right lower quadrant. No free fluid or free air is evident within the abdomen. There is a large fluid collection within the anterior abdominal wall extending down to the pelvic level. It demonstrates an internal CT number of approximately 15-20 Hounsfield units. There is a well-defined capsule surrounding much of this process. Streaky increased density is present in the subcutaneous fat along the anterior aspect of this process compatible with inflammation/scarring. A small bubble of gas is noted along the anterior margin of this fluid collection compatible with the history of a draining wound. This process measures approximately 25 x 23 x 3.5 cm. Given the history of recent surgery, the appearance is most compatible with a large postoperative seroma or hematoma. No definite communication with bowel is seen, however, a fistula tract is difficult to entirely excluded in this patient with a history of enterocutaneous fistula. A moderate-sized intramuscular lipoma is noted laterally in the upper abdomen. IMPRESSION: 1. Large fluid collection in the anterior abdominal wall as described above most compatible with a postoperative seroma/hematoma. Infection within this process cannot be excluded. 2. No acute intra-abdominal abnormality is detected. 3. Tiny left renal cortical nodule which may be a complicated cyst, although a solid mass cannot be excluded. Sonographic evaluation would be of questionable utility in this large patient. CT follow-up is suggested. ] Course & Med Decision Making Course & Med Decision Making Pertinent Labs and Imaging studies reviewed. (See chart for details) 2:50 PM: The patient's condition remained stable. I discussed the case with Dr. Benites, would like the patient admitted to the hospitalist for IV Zosyn, and interventional radiology drainage. The patient's PCP will be paged to admit the patient.[] Dragon Disclaimer Dragon Disclaimer This electronic medical record was generated, in whole or in part, using a voice recognition dictation system. Departure Departure Impression: Primary Impression: Abdominal wall fluid collections Disposition: ADMITTED INPATIENT Admitting Physician: Mika Serna Condition: STABLE Referrals: MIKA SERNA MD (PCP) AHMET SHELBY MD Nov 08, 2017 12:55
[2017-11-08] MEDS ORDERED: CONTRAST GIVEN. MC PRN (13:00)
[2017-11-08] MEDS ORDERED: IOHEXOL 300 MG/ML 100ML VIAL. IV ONE (13:00)
[2017-11-08 13:03] LABS: BACTERIA,URINE 0 /HPF (0-FEW); HYALINE CASTS, URINE FEW /HPF; SQUAMOUS EPITHELIAL CELL,UR FEW /LPF; WBC,URINE 0 /HPF (0-4)
[2017-11-08 13:27] LABS: BASO # 0.1 x10^3/uL (0.0-0.2); BASO % 1 % (0-3); EOS % 0 % (0-3); HEMATOCRIT 39.8 % (36.0-47.0); HEMOGLOBIN 13.1 g/dL (12.0-15.5); LYMPH # 1.1 x10^3/uL (1.0-4.8); LYMPH % 6 % (24-48); MEAN CORPUSCULAR HEMOGLOBIN 28 pg (25-35); MEAN CORPUSCULAR HGB CONC 33 g/dL (31-37); MEAN CORPUSCULAR VOLUME 84 fL (79-100); MONO # 1.4 x10^3/uL (0.0-1.1); MONO % 8 % (0-9); NEUT # 14.2 x10^3uL (1.8-7.7); NEUT % 84 % (31-73); PLATELET COUNT 370 x10^3/uL (140-400); RED BLOOD COUNT 4.74 x10^6/uL (3.50-5.40); RED CELL DISTRIBUTION WIDTH 13.6 % (11.5-14.5); WHITE BLOOD COUNT 16.8 x10^3/uL (4.0-11.0)
[2017-11-08 13:40] LABS: CALCIUM 8.8 mg/dL (8.5-10.1); GFR 55.5; POTASSIUM 3.2 mmol/L (3.5-5.1)
[2017-11-08 13:53] LABS: ALBUMIN/GLOBULIN RATIO 0.6 (1.0-1.7); TOTAL BILIRUBIN 1.6 mg/dL (0.2-1.0); TOTAL PROTEIN 7.7 g/dL (6.4-8.2)
--- NOTE | 2017-11-08 14:41 | RAD ---
CT of the abdomen and pelvis with contrast, 11/08/2017: HISTORY: Postop drainage, possible abscess, ventral hernia repair Multidetector CT imaging was performed following an IV bolus injection of iodinated contrast material. No oral contrast material was administered for this study. The gallbladder is surgically absent. No hepatic abnormality is seen. The pancreas is unremarkable. The spleen is of normal size. There is bilateral renal cortical scarring. A tiny subcentimeter medium density cortical nodule arising from the posterior aspect of the left kidney may be a complicated cyst. A solid nodule cannot be entirely excluded. There is no evidence of renal obstruction. The adrenal glands are unremarkable. There is moderate aortoiliac calcific plaquing. No abdominal or pelvic adenopathy is seen. The uterus is surgically absent. The bowel loops are not dilated. There are several surgical sutures in the right lower quadrant. No free fluid or free air is evident within the abdomen. There is a large fluid collection within the anterior abdominal wall extending down to the pelvic level. It demonstrates an internal CT number of approximately 15-20 Hounsfield units. There is a well-defined capsule surrounding much of this process. Streaky increased density is present in the subcutaneous fat along the anterior aspect of this process compatible with inflammation/scarring. A small bubble of gas is noted along the anterior margin of this fluid collection compatible with the history of a draining wound. This process measures approximately 25 x 23 x 3.5 cm. Given the history of recent surgery, the appearance is most compatible with a large postoperative seroma or hematoma. No definite communication with bowel is seen, however, a fistula tract is difficult to entirely excluded in this patient with a history of enterocutaneous fistula. A moderate-sized intramuscular lipoma is noted laterally in the upper abdomen. IMPRESSION: 1. Large fluid collection in the anterior abdominal wall as described above most compatible with a postoperative seroma/hematoma. Infection within this process cannot be excluded. 2. No acute intra-abdominal abnormality is detected. 3. Tiny left renal cortical nodule which may be a complicated cyst, although a solid mass cannot be excluded. Sonographic evaluation would be of questionable utility in this large patient. CT follow-up is suggested. PQRS Compliance Statement: One or more of the following individualized dose reduction techniques were utilized for this examination: 1. Automated exposure control 2. Adjustment of the mA and/or kV according to patient size 3. Use of iterative reconstruction technique Electronically signed by: Ryan Hackett MD (11/08/2017 2:38 PM) [facility]
[2017-11-08] MEDS ORDERED: LABETALOL 20 MG/4 ML DISP.SYRIN. IVP ONE (15:00)
[2017-11-08] MEDS ORDERED: PIP/TAZO PER PHARMACY MC PRN (15:00)
[2017-11-08] MEDS ORDERED: PIPERACILLIN/TAZOBACTAM 3.375 GM in IV NORMAL SALINE 50ML 50 ML IV ONE (15:15)
[2017-11-08 15:41] LABS: % BANDS 11 % (0-9); % LYMPHS 6 % (24-48); % MONOS 11 % (0-10); % SEGS 72 % (35-66); PLT ESTIMATE ADEQUATE (ADEQUATE)
[2017-11-08 16:38] LABS: PROTHROMBIN TIME PATIENT 13.7 SEC (11.7-14.0)
[2017-11-08 18:00] VITALS: BP 161/57
[2017-11-08 19:00] VITALS: BP 160/71
[2017-11-08] MEDS: IPRATRPIUM/ALBUTEROL 0.5/2.5MG 3 ML NEBU. NEB SCH (20:05)
[2017-11-08] MEDS ORDERED: DEXTROSE 50% 25 GM / 50ML DISP.SYRIN. IV PRN (20:30)
[2017-11-08] MEDS ORDERED: VANCOMYCIN PER PHARMACY MC ONE (20:30)
[2017-11-08] MEDS ORDERED: POTASSIUM CHLORIDE 20 MEQ TABLET.ER. PO ONE (20:30)
[2017-11-08] MEDS ORDERED: VANCOMYCIN 2 GM in IV NORMAL SALINE 500ML BAG 500 ML IV ONE (20:45)
[2017-11-08] MEDS ORDERED: INSULIN LISPRO 300 UNITS/3 ML INSULN.PEN. SQ ONE (21:00)
--- NOTE | 2017-11-08 21:04 | PDOC2 ---
CONSULT Date of Consult Date of Consult DATE: 11/08/17 TIME: 20:57 Reason for Consult Reason for Consult: abd wall seroma Referring Physician Referring Physician: Kareem Identification/Chief Complaint Chief Complaint abd pain, drainage Source Source: Caregiver, Chart review, Patient History of Present Illness Reason for Visit: 67 yo F s/p incisional hernia repair with absorbable mesh. Noted to have several week history of abdominal wall seroma. She has been seen in the office for this. However, drainage has increased and pt noted to have fever. Appropriately, she was admitted to hospital. Past Medical History CENTRAL NERVOUS SYSTEM: Other (hx of subdural) GI: GERD Endocrine: Diabetes Past Surgical History Past Surgical History: Appendectomy, Cholecystectomy, Other (multiple hernia repairs, including mesh infection) Family History Family History: No Significant Social History 1 pack per day ALCOHOL: rare Lives: with Family Current Problem List Problem List Problems Medical Problems: (1) Abdominal wall fluid collections Status: Acute Current Medications Current Medications Current Medications Sodium Chloride 1,000 ml @ 1,000 mls/hr Q1H IV Last administered on 11/08/17at 13:45; Start 11/08/17 at 12:27; Stop 11/08/17 at 13:26; Status DC Iohexol (Omnipaque 300 Mg/ml) 75 ml 1X ONCE IV Last administered on 11/08/17at 13:00; Start 11/08/17 at 13:00; Stop 11/08/17 at 13:01; Status DC Info (CONTRAST GIVEN -- Rx MONITORING) 1 each PRN DAILY PRN MC SEE COMMENTS; Start 11/08/17 at 13:00; Stop 11/10/17 at 12:59 Labetalol HCl (Normodyne Iv Push) 20 mg 1X ONCE IVP Last administered on at 15:17; Start 11/08/17 at 15:00; Stop 11/08/17 at 15:02; Status DC Piperacillin Sod/ Tazobactam Sod (Zosyn Per Pharmacy) 1 each PRN DAILY PRN MC SEE COMMENTS; Start 11/08/17 at 15:00 Piperacillin Sod/ Tazobactam Sod 3.375 gm/Sodium Chloride 50 ml @ 100 mls/hr ONCE ONCE IV Last administered on 11/08/17at 15:22; Start 11/08/17 at 15:15; Stop 11/08/17 at 15:44; Status DC Piperacillin Sod/ Tazobactam Sod 3.375 gm/Sodium Chloride 50 ml @ 100 mls/hr Q6HRS IV ; Start 11/08/17 at 23:00 Acetaminophen/ Hydrocodone Bitart (Lortab 5/325) 1 tab PRN Q6HRS PRN PO PAIN; Start 11/08/17 at 18:45 Albuterol/ Ipratropium (Duoneb) 3 ml RTQID NEB Last administered on 11/08/17at 20:05; Start 11/08/17 at 20:00 Sodium Chloride 1,000 ml @ 100 mls/hr Q10H IV ; Start 11/08/17 at 19:00 Acetaminophen (Tylenol) 650 mg PRN Q8HRS PRN PO temp; Start 11/08/17 at 20:30 Vancomycin HCl (Vanco Per Pharmacy) 1 each 1X ONCE MC ; Start 11/08/17 at 20:30 ; Stop 11/08/17 at 20:31; Status UNV Potassium Chloride (Klor-Con) 40 meq 1X ONCE PO ; Start 11/08/17 at 20:30; Stop 11/08/17 at 20:35; Status DC Insulin Human Lispro (HumaLOG) 0-7 UNITS TIDWMEALS SQ ; Start 11/09/17 at 08:00 Dextrose (Dextrose 50%-Water Syringe) 12.5 gm PRN Q15MIN PRN IV SEE COMMENTS; Start 11/08/17 at 20:30 Vancomycin HCl 2 gm/Sodium Chloride 500 ml @ 250 mls/hr 1X ONCE IV ; Start at 20:45; Stop 11/08/17 at 22:44 Insulin Human Lispro (HumaLOG) 2 units 1X ONCE SQ ; Start 11/08/17 at 21:00; Stop 11/08/17 at 21:01; Status UNV Active Scripts Active Reported Ibuprofen 600 Mg Tablet 600 Mg PO PRN PRN Azopt (Brinzolamide) 10 Ml Drops.susp 1 Drop OD BID Amitriptyline Hcl 10 Mg Tablet 10 Mg PO QHS Calcium (Calcium Carbonate) 600 Mg Tablet 600 Mg PO DAILY Multivitamins (Multivitamin) 1 Each Capsule 1 Each PO DAILY Meclizine Hcl 25 Mg Tablet 1 Tab PO PRN TID PRN Benzonatate 100 Mg Capsule 1 Cap PO TID Ventolin Hfa Inhaler (Albuterol Sulfate) 18 Gm Hfa.aer.ad 18 Gm INH PRN PRN Lumigan (Bimatoprost) 2.5 Ml Drops 2.5 Ml OD BID Combigan Eye Drops (Brimonidine Tartrate/Timolol) 5 Ml Drops 5 Ml OD BID Allergies Allergies: Coded Allergies: No Known Drug Allergies (Unverified , 09/27/17) ROS General: YES: Fatigue Gastrointestinal: Yes Abdominal Pain Physical Exam General: Alert, Oriented X3, Cooperative, mild distress HEENT: Atraumatic Lungs: Normal air movement Abdomen: Soft, Other (abd wall fluid wave, open areas of incision with serosang drainage, no obvious s/sx of infection) Extremities: No clubbing, No cyanosis Skin: No rashes, No breakdown Neuro: Normal speech, Sensation intact Vitals VITALS Vital Signs Date Time Temp Pulse Resp B/P (MAP) Pulse Ox O2 Delivery O2 Flow Rate FiO2 11/08/17 20:10 94 Room Air 11/08/17 18:00 101.0 100 22 161/57 (91) 101.0 Labs Labs Laboratory Tests Test 11/08/17 12:15 11/08/17 13:12 11/08/17 20:34 Urine Collection Type U cath Urine Color Glendy Urine Clarity Clear Urine pH 6.0 Urine Specific [place] >=1.030 Urine Protein 30 mg/dL (NEG-TRACE) Urine Glucose (UA) Negative mg/dL (NEG) Urine Ketones (Stick) Trace mg/dL (NEG) Urine Blood Negative (NEG) Urine Nitrite Negative (NEG) Urine Bilirubin Moderate (NEG) Urine Urobilinogen Dipstick 2.0 mg/dL (0.2 mg/dL) Urine Leukocyte Esterase Trace (NEG) Urine RBC 1-2 /HPF (0-2) Urine WBC 0 /HPF (0-4) Urine Squamous Epithelial Cells Few /LPF Urine Bacteria 0 /HPF (0-FEW) Urine Hyaline Casts Few /HPF Urine Mucus Marked /LPF White Blood Count 16.8 x10^3/uL (4.0-11.0) Red Blood Count 4.74 x10^6/uL (3.50-5.40) Hemoglobin 13.1 g/dL (12.0-15.5) Hematocrit 39.8 % (36.0-47.0) Mean Corpuscular Volume 84 fL (79-100) Mean Corpuscular Hemoglobin 28 pg (25-35) Mean Corpuscular Hemoglobin Concent 33 g/dL (31-37) Red Cell Distribution Width 13.6 % (11.5-14.5) Platelet Count 370 x10^3/uL (140-400) Neutrophils (%) (Auto) 84 % (31-73) Lymphocytes (%) (Auto) 6 % (24-48) Monocytes (%) (Auto) 8 % (0-9) Eosinophils (%) (Auto) 0 % (0-3) Basophils (%) (Auto) 1 % (0-3) Neutrophils # (Auto) 14.2 x10^3uL (1.8-7.7) Lymphocytes # (Auto) 1.1 x10^3/uL (1.0-4.8) Monocytes # (Auto) 1.4 x10^3/uL (0.0-1.1) Eosinophils # (Auto) 0.0 x10^3/uL (0.0-0.7) Basophils # (Auto) 0.1 x10^3/uL (0.0-0.2) Segmented Neutrophils % 72 % (35-66) Band Neutrophils % 11 % (0-9) Lymphocytes % 6 % (24-48) Monocytes % 11 % (0-10) Platelet Estimate Adequate (ADEQUATE) Prothrombin Time 13.7 SEC (11.7-14.0) Prothromb Time International Ratio 1.1 (0.8-1.1) Activated Partial Thromboplast Time 48 SEC (24-38) Sodium Level 141 mmol/L (136-145) Potassium Level 3.2 mmol/L (3.5-5.1) Chloride Level 106 mmol/L (98-107) Carbon Dioxide Level 26 mmol/L (21-32) Anion Gap 9 (6-14) Blood Urea Nitrogen 14 mg/dL (7-20) Creatinine 1.0 mg/dL (0.6-1.0) Estimated GFR (Cockcroft-Gault) 55.5 BUN/Creatinine Ratio 14 (6-20) Glucose Level 153 mg/dL (70-99) Lactic Acid Level 1.1 mmol/L (0.4-2.0) Calcium Level 8.8 mg/dL (8.5-10.1) Total Bilirubin 1.6 mg/dL (0.2-1.0) Aspartate Amino Transf (AST/SGOT) 11 U/L (15-37) Alanine Aminotransferase (ALT/SGPT) 20 U/L (14-59) Alkaline Phosphatase 92 U/L (46-116) Total Protein 7.7 g/dL (6.4-8.2) Albumin 3.0 g/dL (3.4-5.0) Albumin/Globulin Ratio 0.6 (1.0-1.7) Lipase 104 U/L (73-393) Glucose (Fingerstick) 206 mg/dL (70-99) Laboratory Tests Test 11/08/17 12:15 11/08/17 13:12 11/08/17 20:34 Urine Collection Type U cath Urine Color Glendy Urine Clarity Clear Urine pH 6.0 Urine Specific [place] >=1.030 Urine Protein 30 mg/dL (NEG-TRACE) Urine Glucose (UA) Negative mg/dL (NEG) Urine Ketones (Stick) Trace mg/dL (NEG) Urine Blood Negative (NEG) Urine Nitrite Negative (NEG) Urine Bilirubin Moderate (NEG) Urine Urobilinogen Dipstick 2.0 mg/dL (0.2 mg/dL) Urine Leukocyte Esterase Trace (NEG) Urine RBC 1-2 /HPF (0-2) Urine WBC 0 /HPF (0-4) Urine Squamous Epithelial Cells Few /LPF Urine Bacteria 0 /HPF (0-FEW) Urine Hyaline Casts Few /HPF Urine Mucus Marked /LPF White Blood Count 16.8 x10^3/uL (4.0-11.0) Red Blood Count 4.74 x10^6/uL (3.50-5.40) Hemoglobin 13.1 g/dL (12.0-15.5) Hematocrit 39.8 % (36.0-47.0) Mean Corpuscular Volume 84 fL (79-100) Mean Corpuscular Hemoglobin 28 pg (25-35) Mean Corpuscular Hemoglobin Concent 33 g/dL (31-37) Red Cell Distribution Width 13.6 % (11.5-14.5) Platelet Count 370 x10^3/uL (140-400) Neutrophils (%) (Auto) 84 % (31-73) Lymphocytes (%) (Auto) 6 % (24-48) Monocytes (%) (Auto) 8 % (0-9) Eosinophils (%) (Auto) 0 % (0-3) Basophils (%) (Auto) 1 % (0-3) Neutrophils # (Auto) 14.2 x10^3uL (1.8-7.7) Lymphocytes # (Auto) 1.1 x10^3/uL (1.0-4.8) Monocytes # (Auto) 1.4 x10^3/uL (0.0-1.1) Eosinophils # (Auto) 0.0 x10^3/uL (0.0-0.7) Basophils # (Auto) 0.1 x10^3/uL (0.0-0.2) Segmented Neutrophils % 72 % (35-66) Band Neutrophils % 11 % (0-9) Lymphocytes % 6 % (24-48) Monocytes % 11 % (0-10) Platelet Estimate Adequate (ADEQUATE) Prothrombin Time 13.7 SEC (11.7-14.0) Prothromb Time International Ratio 1.1 (0.8-1.1) Activated Partial Thromboplast Time 48 SEC (24-38) Sodium Level 141 mmol/L (136-145) Potassium Level 3.2 mmol/L (3.5-5.1) Chloride Level 106 mmol/L (98-107) Carbon Dioxide Level 26 mmol/L (21-32) Anion Gap 9 (6-14) Blood Urea Nitrogen 14 mg/dL (7-20) Creatinine 1.0 mg/dL (0.6-1.0) Estimated GFR (Cockcroft-Gault) 55.5 BUN/Creatinine Ratio 14 (6-20) Glucose Level 153 mg/dL (70-99) Lactic Acid Level 1.1 mmol/L (0.4-2.0) Calcium Level 8.8 mg/dL (8.5-10.1) Total Bilirubin 1.6 mg/dL (0.2-1.0) Aspartate Amino Transf (AST/SGOT) 11 U/L (15-37) Alanine Aminotransferase (ALT/SGPT) 20 U/L (14-59) Alkaline Phosphatase 92 U/L (46-116) Total Protein 7.7 g/dL (6.4-8.2) Albumin 3.0 g/dL (3.4-5.0) Albumin/Globulin Ratio 0.6 (1.0-1.7) Lipase 104 U/L (73-393) Glucose (Fingerstick) 206 mg/dL (70-99) Images Images CT with large seroma Assessment/Plan Assessment/Plan abd wall seroma agree with abx and observation. will ask IR to provide drainage. Attempts to avoid intervention has been unsuccessful Thanks for consult! DANYA EPSTEIN MD Nov 08, 2017 21:04
[2017-11-08] MEDS: ACETAMINOPHEN 325 MG TABLET. PO PRN (21:05)
[2017-11-08] MEDS: IV NORMAL SALINE 1000ML BAG 1,000 ML IV SCH (21:05)
[2017-11-08 23:00] VITALS: BP 140/52
[2017-11-09] VITALS (13 sets, daily range): BP systolic 124–155; BP diastolic 55–78
[2017-11-09] MEDS: PIPERACILLIN/TAZOBACTAM 3.375 GM in IV NORMAL SALINE 50ML 50 ML IV SCH ×4 (00:05→17:54)
[2017-11-09 01:04] LABS: BASO # 0.1 x10^3/uL (0.0-0.2); BASO % 1 % (0-3); EOS % 0 % (0-3); HEMATOCRIT 38.7 % (36.0-47.0); HEMOGLOBIN 12.7 g/dL (12.0-15.5); LYMPH # 1.5 x10^3/uL (1.0-4.8); LYMPH % 7 % (24-48); MEAN CORPUSCULAR HEMOGLOBIN 28 pg (25-35); MEAN CORPUSCULAR HGB CONC 33 g/dL (31-37); MEAN CORPUSCULAR VOLUME 85 fL (79-100); MONO % 9 % (0-9); NEUT # 18.8 x10^3uL (1.8-7.7); NEUT % 84 % (31-73); PLATELET COUNT 348 x10^3/uL (140-400); RED BLOOD COUNT 4.58 x10^6/uL (3.50-5.40); RED CELL DISTRIBUTION WIDTH 13.5 % (11.5-14.5); WHITE BLOOD COUNT 22.5 x10^3/uL (4.0-11.0)
[2017-11-09 01:17] LABS: CALCIUM 8.1 mg/dL (8.5-10.1); CREATININE 1.3 mg/dL (0.6-1.0); POTASSIUM 3.2 mmol/L (3.5-5.1)
[2017-11-09] MEDS: IV NORMAL SALINE 1000ML BAG 1,000 ML IV SCH ×3 (06:18→23:28)
[2017-11-09] MEDS: IPRATRPIUM/ALBUTEROL 0.5/2.5MG 3 ML NEBU. NEB SCH ×4 (07:19→20:13)
[2017-11-09] MEDS: INSULIN LISPRO 300 UNITS/3 ML INSULN.PEN. SQ SCH ×3 (07:46→17:00)
[2017-11-09] MEDS: VANCOMYCIN 1.5 GM in IV NORMAL SALINE 500ML BAG 500 ML IV SCH ×2 (08:23→22:04)
--- NOTE | 2017-11-09 08:38 | PDOC ---
Provider Note Provider Note H&P dictated.#[id number]. CHRISTOPH LE MD Nov 09, 2017 08:38
[2017-11-09] MEDS: CALCIUM CARBONATE 500 MG TABLET PO SCH (09:38)
[2017-11-09] MEDS: MULTIVITAMIN with MINERAL TABLET. PO SCH (09:38)
[2017-11-09] MEDS: LATANOPROST 0.005% OPHTH SOLUTION 2.5ML BOTTLE. OD SCH ×2 (09:38→21:00)
[2017-11-09] MEDS: TIMOLOL 0.5% OPHTH SOLUTION 5ML BOTTLE. OD SCH ×2 (09:38→21:00)
[2017-11-09] MEDS: DORZOLAMIDE 2% OPHTH SOLUTION 10ML BOTTLE. OD SCH ×2 (09:38→21:00)
[2017-11-09] MEDS: BRIMONIDINE 0.2% OPHTH SOLUTION 5ML BOTTLE. OD SCH ×2 (09:38→21:00)
[2017-11-09] MEDS ORDERED: MECLIZINE HCL 12.5 MG TABLET. PO PRN (09:45)
[2017-11-09] MEDS ORDERED: ALBUTEROL SULFATE 2.5 MG/3 ML NEBU. NEB PRN (09:45)
[2017-11-09] MEDS ORDERED: LIDOCAINE WITH 8.4% SOD BICARB 3 ML DISP.SYRIN. ONE (10:23)
[2017-11-09] MEDS ORDERED: LIDOCAINE WITH 8.4% SOD BICARB 3 ML DISP.SYRIN. INJ ONE (11:00)
[2017-11-09] MEDS: BENZONATATE 100 MG CAPSULE. PO SCH ×2 (11:23→21:00)
--- NOTE | 2017-11-09 11:57 | PDOC ---
Provider Note Provider Note Pt seen consult dictated [id number] LAURITA LAURENT MD Nov 09, 2017 11:57
--- NOTE | 2017-11-09 11:57 | RAD ---
CT-guided drainage, abdominal wall fluid collection 11/09/2017 Discussion: The patient is a 67-year-old female with an fluid collection in the subcutaneous anterior abdominal wall. She is status post ventral hernia repair. CT was obtained yesterday in the emergency room demonstrated a large subcutaneous fluid collection. Interventional radiology was consulted for drainage. Ultrasound evaluation of the anterior abdominal wall was performed demonstrating significant decrease in size in the subcutaneous collection. Upon questioning the patient reports significant drainage from an anterior abdominal wound overnight. CT was therefore used to delineate the extent of the partially collapsed fluid collection. The collection still remained amenable to percutaneous drain placement. The abdomen was therefore prepped and draped using sterile barrier technique. 1% lidocaine was as for local anesthesia. Under intermittent CT guidance a 5 Qatari Yueh needle was advanced into the collection. A guidewire was advanced through the needle into the collection. Over the wire following dilatation a 12 Q[place] drainage catheter was advanced collection. Serosanguineous aspirate was obtained. The catheter was connected to bulb suction drainage and a sterile dressing applied. No immediate complications were identified. Samples of the aspirate were saved for further evaluation per ordering physician request. Anesthesia: Local only Impression: Successful CT-guided placement of a drain into a partially decompressed anterior abdominal wall fluid collection as described. PQRS Compliance Statement: One or more of the following individualized dose reduction techniques were utilized for this examination: 1. Automated exposure control 2. Adjustment of the mA and/or kV according to patient size 3. Use of iterative reconstruction technique
--- NOTE | 2017-11-09 12:20 | PDOC ---
SURGICAL PROGRESS NOTE Subjective Pt feels somewhat better after drainage Vital Signs Vital Signs Date Time Temp Pulse Resp B/P (MAP) Pulse Ox O2 Delivery O2 Flow Rate FiO2 11/09/17 11:02 92 16 140/78 (98) 96 Nasal Cannula 2.0 11/09/17 07:00 100.4 100.4 I&O Intake and Output 11/09/17 07:00 Intake Total 6800 ml Balance 6800 ml Intake Oral 1600 ml IV Total 2600 ml Other 2600 ml # Voids 11 # Bowel Movements 6 General: Alert, Cooperative, No acute distress Abdomen: Soft, No tenderness, Other (drain with serosang drainage) Labs Laboratory Tests Test 11/08/17 12:15 11/08/17 13:12 11/08/17 20:34 11/08/17 20:45 Urine Collection Type U cath Urine Color Glendy Urine Clarity Clear Urine pH 6.0 Urine Specific [place] >=1.030 Urine Protein 30 mg/dL (NEG-TRACE) Urine Glucose (UA) Negative mg/dL (NEG) Urine Ketones (Stick) Trace mg/dL (NEG) Urine Blood Negative (NEG) Urine Nitrite Negative (NEG) Urine Bilirubin Moderate (NEG) Urine Urobilinogen Dipstick 2.0 mg/dL (0.2 mg/dL) Urine Leukocyte Esterase Trace (NEG) Urine RBC 1-2 /HPF (0-2) Urine WBC 0 /HPF (0-4) Urine Squamous Epithelial Cells Few /LPF Urine Bacteria 0 /HPF (0-FEW) Urine Hyaline Casts Few /HPF Urine Mucus Marked /LPF White Blood Count 16.8 x10^3/uL (4.0-11.0) Red Blood Count 4.74 x10^6/uL (3.50-5.40) Hemoglobin 13.1 g/dL (12.0-15.5) Hematocrit 39.8 % (36.0-47.0) Mean Corpuscular Volume 84 fL (79-100) Mean Corpuscular Hemoglobin 28 pg (25-35) Mean Corpuscular Hemoglobin Concent 33 g/dL (31-37) Red Cell Distribution Width 13.6 % (11.5-14.5) Platelet Count 370 x10^3/uL (140-400) Neutrophils (%) (Auto) 84 % (31-73) Lymphocytes (%) (Auto) 6 % (24-48) Monocytes (%) (Auto) 8 % (0-9) Eosinophils (%) (Auto) 0 % (0-3) Basophils (%) (Auto) 1 % (0-3) Neutrophils # (Auto) 14.2 x10^3uL (1.8-7.7) Lymphocytes # (Auto) 1.1 x10^3/uL (1.0-4.8) Monocytes # (Auto) 1.4 x10^3/uL (0.0-1.1) Eosinophils # (Auto) 0.0 x10^3/uL (0.0-0.7) Basophils # (Auto) 0.1 x10^3/uL (0.0-0.2) Segmented Neutrophils % 72 % (35-66) Band Neutrophils % 11 % (0-9) Lymphocytes % 6 % (24-48) Monocytes % 11 % (0-10) Platelet Estimate Adequate (ADEQUATE) Prothrombin Time 13.7 SEC (11.7-14.0) Prothromb Time International Ratio 1.1 (0.8-1.1) Activated Partial Thromboplast Time 48 SEC (24-38) Sodium Level 141 mmol/L (136-145) Potassium Level 3.2 mmol/L (3.5-5.1) Chloride Level 106 mmol/L (98-107) Carbon Dioxide Level 26 mmol/L (21-32) Anion Gap 9 (6-14) Blood Urea Nitrogen 14 mg/dL (7-20) Creatinine 1.0 mg/dL (0.6-1.0) Estimated GFR (Cockcroft-Gault) 55.5 BUN/Creatinine Ratio 14 (6-20) Glucose Level 153 mg/dL (70-99) Lactic Acid Level 1.1 mmol/L (0.4-2.0) 2.3 mmol/L (0.4-2.0) Calcium Level 8.8 mg/dL (8.5-10.1) Total Bilirubin 1.6 mg/dL (0.2-1.0) Aspartate Amino Transf (AST/SGOT) 11 U/L (15-37) Alanine Aminotransferase (ALT/SGPT) 20 U/L (14-59) Alkaline Phosphatase 92 U/L (46-116) Total Protein 7.7 g/dL (6.4-8.2) Albumin 3.0 g/dL (3.4-5.0) Albumin/Globulin Ratio 0.6 (1.0-1.7) Lipase 104 U/L (73-393) Glucose (Fingerstick) 206 mg/dL (70-99) Test 11/09/17 00:55 11/09/17 07:39 11/09/17 11:23 White Blood Count 22.5 x10^3/uL (4.0-11.0) Red Blood Count 4.58 x10^6/uL (3.50-5.40) Hemoglobin 12.7 g/dL (12.0-15.5) Hematocrit 38.7 % (36.0-47.0) Mean Corpuscular Volume 85 fL (79-100) Mean Corpuscular Hemoglobin 28 pg (25-35) Mean Corpuscular Hemoglobin Concent 33 g/dL (31-37) Red Cell Distribution Width 13.5 % (11.5-14.5) Platelet Count 348 x10^3/uL (140-400) Neutrophils (%) (Auto) 84 % (31-73) Lymphocytes (%) (Auto) 7 % (24-48) Monocytes (%) (Auto) 9 % (0-9) Eosinophils (%) (Auto) 0 % (0-3) Basophils (%) (Auto) 1 % (0-3) Neutrophils # (Auto) 18.8 x10^3uL (1.8-7.7) Lymphocytes # (Auto) 1.5 x10^3/uL (1.0-4.8) Monocytes # (Auto) 2.0 x10^3/uL (0.0-1.1) Eosinophils # (Auto) 0.0 x10^3/uL (0.0-0.7) Basophils # (Auto) 0.1 x10^3/uL (0.0-0.2) Sodium Level 141 mmol/L (136-145) Potassium Level 3.2 mmol/L (3.5-5.1) Chloride Level 106 mmol/L (98-107) Carbon Dioxide Level 25 mmol/L (21-32) Anion Gap 10 (6-14) Blood Urea Nitrogen 18 mg/dL (7-20) Creatinine 1.3 mg/dL (0.6-1.0) Estimated GFR (Cockcroft-Gault) 41.0 Glucose Level 153 mg/dL (70-99) Lactic Acid Level 2.2 mmol/L (0.4-2.0) Calcium Level 8.1 mg/dL (8.5-10.1) Glucose (Fingerstick) 166 mg/dL (70-99) 119 mg/dL (70-99) Laboratory Tests Test 11/08/17 13:12 11/08/17 20:34 11/08/17 20:45 11/09/17 00:55 White Blood Count 16.8 x10^3/uL (4.0-11.0) 22.5 x10^3/uL (4.0-11.0) Red Blood Count 4.74 x10^6/uL (3.50-5.40) 4.58 x10^6/uL (3.50-5.40) Hemoglobin 13.1 g/dL (12.0-15.5) 12.7 g/dL (12.0-15.5) Hematocrit 39.8 % (36.0-47.0) 38.7 % (36.0-47.0) Mean Corpuscular Volume 84 fL (79-100) 85 fL (79-100) Mean Corpuscular Hemoglobin 28 pg (25-35) 28 pg (25-35) Mean Corpuscular Hemoglobin Concent 33 g/dL (31-37) 33 g/dL (31-37) Red Cell Distribution Width 13.6 % (11.5-14.5) 13.5 % (11.5-14.5) Platelet Count 370 x10^3/uL (140-400) 348 x10^3/uL (140-400) Neutrophils (%) (Auto) 84 % (31-73) 84 % (31-73) Lymphocytes (%) (Auto) 6 % (24-48) 7 % (24-48) Monocytes (%) (Auto) 8 % (0-9) 9 % (0-9) Eosinophils (%) (Auto) 0 % (0-3) 0 % (0-3) Basophils (%) (Auto) 1 % (0-3) 1 % (0-3) Neutrophils # (Auto) 14.2 x10^3uL (1.8-7.7) 18.8 x10^3uL (1.8-7.7) Lymphocytes # (Auto) 1.1 x10^3/uL (1.0-4.8) 1.5 x10^3/uL (1.0-4.8) Monocytes # (Auto) 1.4 x10^3/uL (0.0-1.1) 2.0 x10^3/uL (0.0-1.1) Eosinophils # (Auto) 0.0 x10^3/uL (0.0-0.7) 0.0 x10^3/uL (0.0-0.7) Basophils # (Auto) 0.1 x10^3/uL (0.0-0.2) 0.1 x10^3/uL (0.0-0.2) Segmented Neutrophils % 72 % (35-66) Band Neutrophils % 11 % (0-9) Lymphocytes % 6 % (24-48) Monocytes % 11 % (0-10) Platelet Estimate Adequate (ADEQUATE) Prothrombin Time 13.7 SEC (11.7-14.0) Prothromb Time International Ratio 1.1 (0.8-1.1) Activated Partial Thromboplast Time 48 SEC (24-38) Sodium Level 141 mmol/L (136-145) 141 mmol/L (136-145) Potassium Level 3.2 mmol/L (3.5-5.1) 3.2 mmol/L (3.5-5.1) Chloride Level 106 mmol/L (98-107) 106 mmol/L (98-107) Carbon Dioxide Level 26 mmol/L (21-32) 25 mmol/L (21-32) Anion Gap 9 (6-14) 10 (6-14) Blood Urea Nitrogen 14 mg/dL (7-20) 18 mg/dL (7-20) Creatinine 1.0 mg/dL (0.6-1.0) 1.3 mg/dL (0.6-1.0) Estimated GFR (Cockcroft-Gault) 55.5 41.0 BUN/Creatinine Ratio 14 (6-20) Glucose Level 153 mg/dL (70-99) 153 mg/dL (70-99) Lactic Acid Level 1.1 mmol/L (0.4-2.0) 2.3 mmol/L (0.4-2.0) 2.2 mmol/L (0.4-2.0) Calcium Level 8.8 mg/dL (8.5-10.1) 8.1 mg/dL (8.5-10.1) Total Bilirubin 1.6 mg/dL (0.2-1.0) Aspartate Amino Transf (AST/SGOT) 11 U/L (15-37) Alanine Aminotransferase (ALT/SGPT) 20 U/L (14-59) Alkaline Phosphatase 92 U/L (46-116) Total Protein 7.7 g/dL (6.4-8.2) Albumin 3.0 g/dL (3.4-5.0) Albumin/Globulin Ratio 0.6 (1.0-1.7) Lipase 104 U/L (73-393) Glucose (Fingerstick) 206 mg/dL (70-99) Test 11/09/17 07:39 11/09/17 11:23 Glucose (Fingerstick) 166 mg/dL (70-99) 119 mg/dL (70-99) Problem List Problems Medical Problems: (1) Abdominal wall fluid collections Status: Acute Assessment/Plan abd wall seroma concern that may be another source of infection, but seems clinically better pending drainage cont drainage and supportive care, no surgical plans currently DANYA EPSTEIN MD Nov 09, 2017 12:20
[2017-11-09] MEDS: FLUCONAZOLE 200MG/100ML PREMIX 100 ML IV SCH (13:22)
[2017-11-09] MEDS: VANCOMYCIN PER PHARMACY MC PRN (13:47)
[2017-11-09] MEDS: ACETAMINOPHEN 325 MG TABLET. PO PRN (15:02)
--- NOTE | 2017-11-09 18:20 | HP ---
ADMIT DATE: 11/08/2017 LOCATION: 430. REASON FOR ADMISSION TO THE HOSPITAL: Fever, infected abdominal mesh. HISTORY OF PRESENT ILLNESS: The patient is a 67-year-old female patient known to me. She has a history of ventral hernia. The repair was done a couple of months ago by General Surgery. She had a mesh placed and she has developed swelling and fluid collection, has been followed by surgery, Dr. Wang. For drainage, redness and fever, the patient came to the Emergency Room. Her white count was elevated to 16,000 with fever, sepsis, was started on broad-spectrum antibiotics. Surgery was consulted. ID was consulted. PAST MEDICAL HISTORY: History of borderline diabetes, history of hypertension, COPD, history of previous subdural hematoma with residual. PAST SURGICAL HISTORY: Had a surgery done for evacuation of subdural hematoma, hysterectomy and ventral hernia repair at least 2 times so far I think. ALLERGIES: No known drug allergies. MEDICATIONS AT HOME: Albuterol 2 puffs 4 times daily, amitriptyline 10 mg daily, benzonatate 10 mg 3 times daily, Lumigan eye drops twice a day, Combigan eyedrops twice a day, Azopt eyedrops twice a day, calcium daily, ibuprofen 600 mg daily, meclizine for dizziness, vitamin daily. SOCIAL HISTORY: Smokes 1 pack for 30 years. Denies alcohol. Denies any street drugs. Lives with her , ambulates holding to the cesar. FAMILY HISTORY: No other significant family medical history. REVIEW OF SYSTEMS: CARDIAC: No chest pain. GASTROINTESTINAL: No nausea or vomiting. Has a fever, some drainage with pain at the incision site. Rest of the 14-system was reviewed and negative. PHYSICAL EXAMINATION: GENERAL: The patient is not in any distress, had a fever of 101. VITAL SIGNS: Pulse 119, respirations 22, blood pressure 201/85, 94% room air. HEENT: Head is atraumatic. Pupils equal. Oral cavity: No congestion. NECK: Supple. Thyroid not enlarged. JVD not elevated. CHEST: Symmetrical. CARDIOVASCULAR: S1, S2. LUNGS: Clear. No wheezing. ABDOMEN: There is a sensation in the midline of the abdomen with redness and couple of areas with crusting and some drainage at the incision site and slightly tender. EXTERNAL GENITALIA: No Fuentes. RECTAL: Deferred. EXTREMITIES: No calf tenderness. There is no edema. NEUROLOGIC: Moving all extremities. LABORATORY DATA: Shows a white count of 17,000 went up to 22,000; hemoglobin 13; platelets 370. INR 1.1. Electrolytes show sodium 141, potassium 3.2, chloride 106, bicarbonate 26, BUN 14, creatinine 1.1, glucose 153. Lactic acid 1.1, went up to 2.4. LFTs were normal. Urine shows negative for nitrites. CT scan of the abdomen and pelvis, which shows a large fluid collection in the anterior abdominal wall, postoperative seroma. FINAL IMPRESSION:Abdominal wall abscess/cellulitis abdominal wall. 1. Infected abdominal mesh. The patient had hernia repair done a couple of months ago. 2. Recurrent ventral hernia. 3. History of subdural hematoma with late sequelae. 4. Chronic obstructive pulmonary disease. 5. Smoking history. 6. Accelerated hypertension. PLAN: At this time, admit to the hospital after culture was done, start on broad-spectrum antibiotic, vancomycin and Zosyn. ID was consulted. Surgery was consulted and plan is to recommend IR to drain the fluid and put a drain and see how the patient's condition improves in the next couple of days. CHRISTOPH LE MD DR: PURVI/genesis JOB#: [id number] / [id number] KATHRIN
[2017-11-09] MEDS: AMITRIPTYLINE HCL 10 MG TABLET. PO SCH (22:03)
--- NOTE | 2017-11-09 22:06 | CONS ---
DATE OF CONSULTATION: REFERRING PHYSICIAN: Dr. Serna. REASON FOR CONSULTATION: Sepsis. HISTORY OF PRESENT ILLNESS: A 67-year-old female who underwent ventral hernia repair in September of 2017, started having increasing abdominal discomfort and developed a small drainage along her wound anteriorly. She had hot and cold spells. She was seen in Surgery Clinic and was sent to ER for worsening swelling. CT of the abdomen and pelvis on November 08 showed large fluid collection in the anterior abdominal wall as described above, which measured 25 x 23 x cm. There is no definite communication with bowel seen; however, fistula tract is difficult to entirely exclude in this patient with a history of enterocutaneous fistula. No acute intraabdominal abnormality noted. Tiny left renal cortical nodule with complicated cyst, although solid mass cannot be excluded. The patient was started on empiric IV vancomycin and Zosyn. White count was elevated at 16,000, today is 22.5 thousand. The patient underwent IR drainage after Surgery evaluated the patient. Blood culture is pending. The patient had diarrhea, so C. diff has been sent, which is pending at this time. The patient complains of left lower quadrant abdominal pain. Had fever of 103 last night with some chills. She is very tired, continues to have nausea, no vomiting as her appetite has been very poor and has not much p.o. intake. The patient does have some cognitive delay secondary to prior brain surgery for subdural hematoma. Her is at bedside and states that her mental status is at baseline. REVIEW OF SYSTEMS: Negative except for above in HPI. CURRENT MEDICATION: IV vancomycin and Zosyn. Other medications reviewed in medication list. ALLERGIES: No known drug allergies. SOCIAL HISTORY: History of smoking in the past, none currently. No alcohol or drug use. Lives with her . PAST MEDICAL HISTORY: Diabetes, subdural hematoma, COPD, hernia surgery with evidently mesh placement 2 years ago with repeat hernia surgery with mesh placement September 2017, history of enterocutaneous fistula, status post surgery in August of 2016 with small bowel resection, removal of mesh, ventral incisional hernia repair and debridement of her abdominal wall. PHYSICAL EXAMINATION: VITAL SIGNS: Temperature 100.4, T-max 103, pulse 92, respirations 16, blood pressure 140/78, oxygen saturation 96% on room air. IMPRESSION: 1. Abdominal pain with abnormal ct showing fluid collection, status post IR drainage of blood stained drainage, on empiric IV antibiotics. 2. History of hernia repair with mesh placement, September 2017. 3. Diabetes. 4. Subdural hematoma. 5. History of previous exploratory laparotomy for small bowel resection, removal of mesh, ventral incisional hernia repair and debridement of abdominal wall, 08/10/2016. 6. Leukocytosis from abdominal pain. 7. Tobaccoism. 8. Status post hysterectomy. 9. Mild cognitive impairment, status post subdural hematoma at baseline per at bedside. RECOMMENDATIONS: 1. Continue empiric IV vancomycin and Zosyn. 2. We will add empiric Diflucan. 3. Follow up cultures and lab in a.m. 4. Continue supportive care. 5. General Surgery is following. Thank you, Dr. Serna for allowing us to participate in this patient's care. If you have any questions, do not hesitate to contact me. Discussed with at bedside. Discussed with RN LAURITA LAURENT MD DR: EVELYNE/genesis JOB#: [id number] / [id number] KATHRIN
[2017-11-09] MEDS: HYDROcodone/APAP 5/325MG 1 TAB TABLET PO PRN (23:27)
[2017-11-10] MEDS: PIPERACILLIN/TAZOBACTAM 3.375 GM in IV NORMAL SALINE 50ML 50 ML IV SCH ×2 (00:36→05:31)
[2017-11-10 03:00] VITALS: BP 148/59
[2017-11-10 07:00] VITALS: BP 158/48
[2017-11-10] MEDS: INSULIN LISPRO 300 UNITS/3 ML INSULN.PEN. SQ SCH ×3 (08:00→17:00)
[2017-11-10] MEDS: IPRATRPIUM/ALBUTEROL 0.5/2.5MG 3 ML NEBU. NEB SCH ×4 (08:20→20:25)
--- NOTE | 2017-11-10 08:46 | PDOC ---
LUDMILA BROOKS [employer] 11/10/17 0846: SURGICAL PROGRESS NOTE Subjective feels better after drainage no n/v Vital Signs Vital Signs Date Time Temp Pulse Resp B/P (MAP) Pulse Ox O2 Delivery O2 Flow Rate FiO2 11/10/17 08:21 96 Room Air 11/10/17 07:00 98.6 96 18 158/48 (84) 98.6 11/09/17 11:02 2.0 I&O Intake and Output 11/10/17 07:00 Intake Total 500 ml Output Total 160 ml Balance 340 ml IV Total 500 ml Output Drainage Total 160 ml # Voids 3 # Bowel Movements 14 General: Alert, Oriented X3, Cooperative, No acute distress Abdomen: Soft, Other (drain in place, bloody drainage) Labs Laboratory Tests Test 11/08/17 12:15 11/08/17 13:12 11/08/17 20:34 11/08/17 20:45 Urine Collection Type U cath Urine Color Glendy Urine Clarity Clear Urine pH 6.0 Urine Specific Union >=1.030 Urine Protein 30 mg/dL (NEG-TRACE) Urine Glucose (UA) Negative mg/dL (NEG) Urine Ketones (Stick) Trace mg/dL (NEG) Urine Blood Negative (NEG) Urine Nitrite Negative (NEG) Urine Bilirubin Moderate (NEG) Urine Urobilinogen Dipstick 2.0 mg/dL (0.2 mg/dL) Urine Leukocyte Esterase Trace (NEG) Urine RBC 1-2 /HPF (0-2) Urine WBC 0 /HPF (0-4) Urine Squamous Epithelial Cells Few /LPF Urine Bacteria 0 /HPF (0-FEW) Urine Hyaline Casts Few /HPF Urine Mucus Marked /LPF White Blood Count 16.8 x10^3/uL (4.0-11.0) Red Blood Count 4.74 x10^6/uL (3.50-5.40) Hemoglobin 13.1 g/dL (12.0-15.5) Hematocrit 39.8 % (36.0-47.0) Mean Corpuscular Volume 84 fL (79-100) Mean Corpuscular Hemoglobin 28 pg (25-35) Mean Corpuscular Hemoglobin Concent 33 g/dL (31-37) Red Cell Distribution Width 13.6 % (11.5-14.5) Platelet Count 370 x10^3/uL (140-400) Neutrophils (%) (Auto) 84 % (31-73) Lymphocytes (%) (Auto) 6 % (24-48) Monocytes (%) (Auto) 8 % (0-9) Eosinophils (%) (Auto) 0 % (0-3) Basophils (%) (Auto) 1 % (0-3) Neutrophils # (Auto) 14.2 x10^3uL (1.8-7.7) Lymphocytes # (Auto) 1.1 x10^3/uL (1.0-4.8) Monocytes # (Auto) 1.4 x10^3/uL (0.0-1.1) Eosinophils # (Auto) 0.0 x10^3/uL (0.0-0.7) Basophils # (Auto) 0.1 x10^3/uL (0.0-0.2) Segmented Neutrophils % 72 % (35-66) Band Neutrophils % 11 % (0-9) Lymphocytes % 6 % (24-48) Monocytes % 11 % (0-10) Platelet Estimate Adequate (ADEQUATE) Prothrombin Time 13.7 SEC (11.7-14.0) Prothromb Time International Ratio 1.1 (0.8-1.1) Activated Partial Thromboplast Time 48 SEC (24-38) Sodium Level 141 mmol/L (136-145) Potassium Level 3.2 mmol/L (3.5-5.1) Chloride Level 106 mmol/L (98-107) Carbon Dioxide Level 26 mmol/L (21-32) Anion Gap 9 (6-14) Blood Urea Nitrogen 14 mg/dL (7-20) Creatinine 1.0 mg/dL (0.6-1.0) Estimated GFR (Cockcroft-Gault) 55.5 BUN/Creatinine Ratio 14 (6-20) Glucose Level 153 mg/dL (70-99) Lactic Acid Level 1.1 mmol/L (0.4-2.0) 2.3 mmol/L (0.4-2.0) Calcium Level 8.8 mg/dL (8.5-10.1) Total Bilirubin 1.6 mg/dL (0.2-1.0) Aspartate Amino Transf (AST/SGOT) 11 U/L (15-37) Alanine Aminotransferase (ALT/SGPT) 20 U/L (14-59) Alkaline Phosphatase 92 U/L (46-116) Total Protein 7.7 g/dL (6.4-8.2) Albumin 3.0 g/dL (3.4-5.0) Albumin/Globulin Ratio 0.6 (1.0-1.7) Lipase 104 U/L (73-393) Glucose (Fingerstick) 206 mg/dL (70-99) Test 11/09/17 00:55 11/09/17 07:39 11/09/17 08:00 11/09/17 11:23 White Blood Count 22.5 x10^3/uL (4.0-11.0) Red Blood Count 4.58 x10^6/uL (3.50-5.40) Hemoglobin 12.7 g/dL (12.0-15.5) Hematocrit 38.7 % (36.0-47.0) Mean Corpuscular Volume 85 fL (79-100) Mean Corpuscular Hemoglobin 28 pg (25-35) Mean Corpuscular Hemoglobin Concent 33 g/dL (31-37) Red Cell Distribution Width 13.5 % (11.5-14.5) Platelet Count 348 x10^3/uL (140-400) Neutrophils (%) (Auto) 84 % (31-73) Lymphocytes (%) (Auto) 7 % (24-48) Monocytes (%) (Auto) 9 % (0-9) Eosinophils (%) (Auto) 0 % (0-3) Basophils (%) (Auto) 1 % (0-3) Neutrophils # (Auto) 18.8 x10^3uL (1.8-7.7) Lymphocytes # (Auto) 1.5 x10^3/uL (1.0-4.8) Monocytes # (Auto) 2.0 x10^3/uL (0.0-1.1) Eosinophils # (Auto) 0.0 x10^3/uL (0.0-0.7) Basophils # (Auto) 0.1 x10^3/uL (0.0-0.2) Sodium Level 141 mmol/L (136-145) Potassium Level 3.2 mmol/L (3.5-5.1) Chloride Level 106 mmol/L (98-107) Carbon Dioxide Level 25 mmol/L (21-32) Anion Gap 10 (6-14) Blood Urea Nitrogen 18 mg/dL (7-20) Creatinine 1.3 mg/dL (0.6-1.0) Estimated GFR (Cockcroft-Gault) 41.0 Glucose Level 153 mg/dL (70-99) Lactic Acid Level 2.2 mmol/L (0.4-2.0) Calcium Level 8.1 mg/dL (8.5-10.1) Glucose (Fingerstick) 166 mg/dL (70-99) 119 mg/dL (70-99) Clostridium difficile Toxin (PCR) Negative (Negative) Test 11/09/17 17:05 11/09/17 20:00 Glucose (Fingerstick) 117 mg/dL (70-99) 143 mg/dL (70-99) Laboratory Tests Test 11/09/17 11:23 11/09/17 17:05 11/09/17 20:00 Glucose (Fingerstick) 119 mg/dL (70-99) 117 mg/dL (70-99) 143 mg/dL (70-99) Problem List Problems Medical Problems: (1) Abdominal wall fluid collections Status: Acute Assessment/Plan seroma, drain in place no surgical plans DANYA EPTSEIN MD 11/10/17 1105: SURGICAL PROGRESS NOTE Assessment/Plan Pt seen and examined. Agree with Ms. Brooks's note Pt appears brighter today abd soft, drain serosang cont drain and supportive care. LUDMILA BROOKS APRN Nov 10, 2017 08:46 DANYA EPSTEIN MD Nov 10, 2017 11:05
[2017-11-10] MEDS: TIMOLOL 0.5% OPHTH SOLUTION 5ML BOTTLE. OD SCH ×2 (09:00→21:00)
[2017-11-10] MEDS: BENZONATATE 100 MG CAPSULE. PO SCH ×4 (09:00→21:00)
[2017-11-10] MEDS: LATANOPROST 0.005% OPHTH SOLUTION 2.5ML BOTTLE. OD SCH ×2 (09:00→21:00)
[2017-11-10] MEDS: BRIMONIDINE 0.2% OPHTH SOLUTION 5ML BOTTLE. OD SCH ×2 (09:00→21:00)
[2017-11-10] MEDS: DORZOLAMIDE 2% OPHTH SOLUTION 10ML BOTTLE. OD SCH ×2 (09:00→21:00)
[2017-11-10] MEDS: MULTIVITAMIN with MINERAL TABLET. PO SCH (09:23)
[2017-11-10] MEDS: CALCIUM CARBONATE 500 MG TABLET PO SCH (09:23)
[2017-11-10 09:29] LABS: BASO # 0.1 x10^3/uL (0.0-0.2); BASO % 0 % (0-3); EOS # 0.4 x10^3/uL (0.0-0.7); EOS % 3 % (0-3); HEMATOCRIT 32.4 % (36.0-47.0); HEMOGLOBIN 10.8 g/dL (12.0-15.5); LYMPH # 0.9 x10^3/uL (1.0-4.8); LYMPH % 6 % (24-48); MEAN CORPUSCULAR HEMOGLOBIN 28 pg (25-35); MEAN CORPUSCULAR HGB CONC 33 g/dL (31-37); MEAN CORPUSCULAR VOLUME 85 fL (79-100); MONO # 1.2 x10^3/uL (0.0-1.1); MONO % 8 % (0-9); NEUT # 11.9 x10^3uL (1.8-7.7); NEUT % 83 % (31-73); PLATELET COUNT 282 x10^3/uL (140-400); RED BLOOD COUNT 3.82 x10^6/uL (3.50-5.40); RED CELL DISTRIBUTION WIDTH 13.5 % (11.5-14.5); WHITE BLOOD COUNT 14.4 x10^3/uL (4.0-11.0)
--- NOTE | 2017-11-10 09:34 | PDOC ---
Infectious Disease Note Subjective: Subjective Pt feels better eating lunch abdo pain is under control fever pattern improving no n/v/d ROS: ROS Negative except for above. Vital Signs: Vital Signs Vital Signs Date Time Temp Pulse Resp B/P (MAP) Pulse Ox O2 Delivery O2 Flow Rate FiO2 11/10/17 08:21 96 Room Air 11/10/17 07:00 98.6 96 18 158/48 (84) 98.6 11/09/17 11:02 2.0 Physical Exam: PHYSICAL EXAM General appearance - alert,well appearing, and in mild distress ,oriented to person, place, and time slow in answering questions m,baseline per at bedside Head - normal anicteric Chest - clear to auscultation, no wheezes, rales or rhonchi, symmetric air entry Heart - S1 and S2 normal Abdomen - soft, drain in rlq,diffusely tender, mildly distended Neurological - alert and oriented Musculoskeletal - no muscular tenderness noted Extremities - no pedal edema Skin - warm and dry Mental Status - alert, cooperative Medications: Inpatient Meds: Current Medications Medications (Trade) Dose Ordered Sig/Maite Start Time Stop Time Status Last Admin Dose Admin Acetaminophen (Tylenol) 650 mg PRN Q8HRS PRN 11/08/17 20:30 11/09/17 15:02 650 MG Acetaminophen/ Hydrocodone Bitart (Lortab 5/325) 1 tab PRN Q6HRS PRN 11/08/17 18:45 11/09/17 23:27 1 TAB Albuterol Sulfate (Ventolin Neb Soln) 2.5 mg PRN DAILY PRN 11/09/17 09:45 Albuterol/ Ipratropium (Duoneb) 3 ml RTQID 11/08/17 20:00 11/10/17 08:20 3 ML Amitriptyline HCl (Elavil) 10 mg QHS 11/09/17 21:00 11/09/17 22:03 10 MG Benzonatate (Tessalon Perle) 100 mg [id number] 11/09/17 14:00 Brimonidine Tartrate (Alphagan) 1 drop BID 11/09/17 10:00 Calcium Carbonate/ Glycine (Oscal) 500 mg DAILY 11/09/17 10:00 11/10/17 09:23 500 MG Dextrose (Dextrose 50%-Water Syringe) 12.5 gm PRN Q15MIN PRN 11/08/17 20:30 Dorzolamide HCl (Trusopt) 1 drop BID 11/09/17 10:00 Fluconazole/ Sodium Chloride 100 ml @ 100 mls/hr Q24H 11/09/17 13:00 11/09/17 13:22 100 MLS/HR Ibuprofen (Motrin) 600 mg PRN Q6HRS PRN 11/09/17 09:45 Info (CONTRAST GIVEN -- Rx MONITORING) 1 each PRN DAILY PRN 11/08/17 13:00 11/10/17 12:59 Insulin Human Lispro (HumaLOG) 2 units 1X ONCE 11/08/17 21:00 11/08/17 21:01 DC 11/08/17 21:26 2 UNITS Iohexol (Omnipaque 300 Mg/ml) 75 ml 1X ONCE 11/08/17 13:00 11/08/17 13:01 DC 11/08/17 13:00 75 ML Labetalol HCl (Normodyne Iv Push) 20 mg 1X ONCE 11/08/17 15:00 11/08/17 15:02 DC 11/08/17 15:17 20 MG Latanoprost (Xalatan) 1 drop BID 11/09/17 10:00 Lidocaine/Sodium Bicarbonate (Buffered Lidocaine 1%) 3 ml 1X ONCE 11/09/17 11:00 11/09/17 11:01 DC 11/09/17 11:03 4 ML Meclizine HCl (Antivert) 25 mg PRN Q8HRS PRN 11/09/17 09:45 Multivitamins (Thera M Plus) 1 tab DAILY 11/09/17 10:00 11/10/17 09:23 1 TAB Piperacillin Sod/ Tazobactam Sod (Zosyn Per Pharmacy) 1 each PRN DAILY PRN 11/08/17 15:00 Piperacillin Sod/ Tazobactam Sod 3.375 gm/Sodium Chloride 50 ml @ 100 mls/hr Q6HRS 11/08/17 23:00 11/10/17 05:31 100 MLS/HR Potassium Chloride (Klor-Con) 40 meq 1X ONCE 11/08/17 20:30 11/08/17 20:35 DC 11/08/17 21:05 40 MEQ Sodium Chloride 1,000 ml @ 100 mls/hr Q10H 11/08/17 19:00 11/09/17 23:28 100 MLS/HR Timolol Maleate (Timoptic 0.5% [facility]) 1 drop BID 11/09/17 10:00 Vancomycin HCl (Vanco Per Pharmacy) 1 each PRN DAILY PRN 11/09/17 14:00 11/09/17 13:47 1 EACH Vancomycin HCl (Vancomycin Trough Level) 1 each 1X ONCE 11/10/17 08:30 11/10/17 08:31 DC Vancomycin HCl 1.5 gm/Sodium Chloride 500 ml @ 250 mls/hr Q12H 11/09/17 09:00 11/09/17 22:04 250 MLS/HR Vancomycin HCl 2 gm/Sodium Chloride 500 ml @ 250 mls/hr 1X ONCE 11/08/17 20:45 11/08/17 22:44 DC 11/08/17 21:04 250 MLS/HR Labs: Lab Laboratory Tests Test 11/09/17 11:23 11/09/17 17:05 11/09/17 20:00 11/10/17 08:18 Glucose (Fingerstick) 119 mg/dL (70-99) 117 mg/dL (70-99) 143 mg/dL (70-99) 147 mg/dL (70-99) Test 11/10/17 08:56 White Blood Count 14.4 x10^3/uL (4.0-11.0) Red Blood Count 3.82 x10^6/uL (3.50-5.40) Hemoglobin 10.8 g/dL (12.0-15.5) Hematocrit 32.4 % (36.0-47.0) Mean Corpuscular Volume 85 fL (79-100) Mean Corpuscular Hemoglobin 28 pg (25-35) Mean Corpuscular Hemoglobin Concent 33 g/dL (31-37) Red Cell Distribution Width 13.5 % (11.5-14.5) Platelet Count 282 x10^3/uL (140-400) Neutrophils (%) (Auto) 83 % (31-73) Lymphocytes (%) (Auto) 6 % (24-48) Monocytes (%) (Auto) 8 % (0-9) Eosinophils (%) (Auto) 3 % (0-3) Basophils (%) (Auto) 0 % (0-3) Neutrophils # (Auto) 11.9 x10^3uL (1.8-7.7) Lymphocytes # (Auto) 0.9 x10^3/uL (1.0-4.8) Monocytes # (Auto) 1.2 x10^3/uL (0.0-1.1) Eosinophils # (Auto) 0.4 x10^3/uL (0.0-0.7) Basophils # (Auto) 0.1 x10^3/uL (0.0-0.2) [address] [place] [address] Christopher Barroso M.D., Fire Safety Director PATIENT: RICKY BATISTA [employer] ACCT: [id number] LOC: [address] [place] [address] U : [id number] AGE/SX: 67/F ROOM: 430 REG : 11/08/[address]: CHRISTOPH LE MD : 1950 BED: 1 DIS : STATUS: ADM IN TLOC: SPEC #: [id number] SVEN: 11/08/17-1203 STATUS: RES REQ #: [id number] RECD: 11/08/17-1253 [facility] DR: AHMET SHELBY MD SOURCE: ABDOMEN ENTR: 11/08/17-[address]: CHRISTOPH LE MD SPDESC: DRAINAGE ORDERED: AEROBIC CULT GS Procedure Result AEROBIC CULTURE PENDING AEROBIC RES 1 PENDING GRAM STAIN Final Final report GRAM STAIN RESULT 1 Final Comment No white blood cells seen. GRAM STAIN RESULT 2 Final Comment Many gram positive cocci. Performed at: - [address], [place], [place] [id number] Community Development Director: PARVEEN Jacques MD, Phone: [phone] BC neg Objective: Assessment: 1. Abdominal pain with abnormal ct showing fluid collection, status post IR drainage of blood stained drainage, 2. History of hernia repair with mesh placement, September 2017. 3. Diabetes. 4. Subdural hematoma. 5. History of previous exploratory laparotomy for small bowel resection, removal of mesh, ventral incisional hernia repair and debridement of abdominal wall, 08/10/2016. 6. Leukocytosis from abdominal pain. 7. Tobaccoism. 8. Status post hysterectomy. 9. Mild cognitive impairment, status post subdural hematoma at baseline per at bedside. Plan: Plan of Care 1. Continue empiric IV vancomycin , Zosyn, Diflucan. 2. Monitor renal func closely 3. Follow up cultures and lab in a.m. 4. Continue supportive care. 5. General Surgery is following. D/W at bedside LAURITA LAURENT MD Nov 10, 2017 09:34
[2017-11-10 09:44] LABS: CALCIUM 7.8 mg/dL (8.5-10.1); CREATININE 2.2 mg/dL (0.6-1.0); GFR 22.3
[2017-11-10] MEDS: HYDROcodone/APAP 5/325MG 1 TAB TABLET PO PRN ×2 (09:44→16:23)
--- NOTE | 2017-11-10 09:50 | PDOC2 ---
IM Consult Reason for consult sepsis Referring physician DR Serna Date of Admission DATE: 11/09/17 Chief Complaint Chief Complaint Pt admitted with abdominal pain and fever HISTORY OF PRESENT ILLNESS: A 67-year-old female who underwent ventral hernia repair in September of 2017, started having increasing abdominal discomfort and developed a small drainage along her wound anteriorly. She had hot and cold spells. She was seen in Surgery Clinic and was sent to ER for worsening swelling. CT of the abdomen and pelvis on November 08 showed large fluid collection in the anterior abdominal wall as described above, which measured 25 x 23 x cm. There is no definite communication with bowel seen; however, fistula tract is difficult to entirely exclude in this patient with a history of enterocutaneous fistula. No acute intraabdominal abnormality noted. Tiny left renal cortical nodule with complicated cyst, although solid mass cannot be excluded. The patient was started on empiric IV vancomycin and Zosyn. White count was elevated at 16,000, today is 22.5 thousand. The patient underwent IR drainage after Surgery evaluated the patient. Blood culture is pending. The patient had diarrhea, so C. diff has been sent, which is pending at this time. The patient complains of left lower quadrant abdominal pain. Had fever of 103 last night with some chills. She is very tired, continues to have nausea, no vomiting as her appetite has been very poor and has not much p.o. intake. The patient does have some cognitive delay secondary to prior brain surgery for subdural hematoma. Her is at bedside and states that her mental status is at baseline. REVIEW OF SYSTEMS: Negative except for above in HPI. CURRENT MEDICATION: IV vancomycin and Zosyn. Other medications reviewed in medication list. ALLERGIES: No known drug allergies. SOCIAL HISTORY: History of smoking in the past, none currently. No alcohol or drug use. Lives with her . PAST MEDICAL HISTORY: Diabetes, subdural hematoma, COPD, hernia surgery with evidently mesh placement 2 years ago with repeat hernia surgery with mesh placement September 2017, history of enterocutaneous fistula, status post surgery in August of 2016 with small bowel resection, removal of mesh, ventral incisional hernia repair and debridement of her abdominal wall. Past Medical History PMH as above CENTRAL NERVOUS SYSTEM: Other (hx of subdural) GI: GERD Endocrine: Diabetes Past Surgical History Past Surgical History: Appendectomy, Cholecystectomy, Other (multiple hernia repairs, including mesh infection) Past Family History Family History: No Significant Past Social History PSH as above Review of Symptoms Review of Symptoms as above Medications Current Medications Albuterol Sulfate (Ventolin Neb Soln) 2.5 mg PRN DAILY PRN NEB SHORTNESS OF BREATH; Start 11/09/17 at 09:45 Amitriptyline HCl (Elavil) 10 mg QHS PO Last administered on 11/09/17at 22:03; Admin Dose 10 MG; Start 11/09/17 at 21:00 Benzonatate (Tessalon Perle) 100 mg [id number] PO ; Start 11/09/17 at 14:00 Brimonidine Tartrate (Alphagan) 1 drop BID OD ; Start 11/09/17 at 10:00 Calcium Carbonate/ Glycine (Oscal) 500 mg DAILY PO Last administered on at 09:23; Admin Dose 500 MG; Start 11/09/17 at 10:00 Dorzolamide HCl (Trusopt) 1 drop BID OD ; Start 11/09/17 at 10:00 Fluconazole/ Sodium Chloride 100 ml @ 100 mls/hr Q24H IV Last administered on 11/09/17at 13:22; Admin Dose 100 MLS/HR; Start 11/09/17 at 13:00 Ibuprofen (Motrin) 600 mg PRN Q6HRS PRN PO INFLAMMATION; Start 11/09/17 at 09: 45 Latanoprost (Xalatan) 1 drop BID OD ; Start 11/09/17 at 10:00 Lidocaine/Sodium Bicarbonate (Buffered Lidocaine 1%) 3 ml 1X ONCE INJ Last administered on 11/09/17at 11:03; Admin Dose 4 ML; Start 11/09/17 at 11:00; Stop 11/09/17 at 11:01; Status DC Lidocaine/Sodium Bicarbonate (Buffered Lidocaine 1%) 3 ml STK-MED ONCE .ROUTE ; Start 11/09/17 at 10:23; Stop 11/09/17 at 10:24; Status DC Meclizine HCl (Antivert) 25 mg PRN Q8HRS PRN PO DIZZINESS; Start 11/09/17 at 09 :45 Multivitamins (Thera M Plus) 1 tab DAILY PO Last administered on 11/10/17at 09: 23; Admin Dose 1 TAB; Start 11/09/17 at 10:00 Timolol Maleate (Timoptic 0.5% [facility]) 1 drop BID OD ; Start 11/09/17 at 10:00 Vancomycin HCl (Vanco Per Pharmacy) 1 each PRN DAILY PRN MC SEE COMMENTS Last administered on 11/09/17at 13:47; Admin Dose 1 EACH; Start 11/09/17 at 14:00 Vancomycin HCl (Vancomycin Trough Level) 1 each 1X ONCE MC ; Start 11/10/17 at 08:30; Stop 11/10/17 at 08:31; Status DC Allergy Allergies Coded Allergies Type Severity Reaction Last Updated Verified No Known Drug Allergies 09/27/17 No Physical Exam Physical Exam General appearance - alert,well appearing, and in mild distress ,oriented to person, place, and time slow in answering questions m,baseline per at bedside Head - normal anicteric Chest - clear to auscultation, no wheezes, rales or rhonchi, symmetric air entry Heart - S1 and S2 normal Abdomen - soft, drain in rlq,diffusely tender, mildly distended Neurological - alert and oriented Musculoskeletal - no muscular tenderness noted Extremities - no pedal edema Skin - warm and dry Mental Status - alert, cooperative Labs Laboratory Tests Test 11/08/17 12:15 11/08/17 13:12 11/08/17 20:34 11/08/17 20:45 Urine Collection Type U cath Urine Color [place] Urine Clarity Clear Urine pH 6.0 Urine Specific [place] >=1.030 Urine Protein 30 mg/dL (NEG-TRACE) Urine Glucose (UA) Negative mg/dL (NEG) Urine Ketones (Stick) Trace mg/dL (NEG) Urine Blood Negative (NEG) Urine Nitrite Negative (NEG) Urine Bilirubin Moderate (NEG) Urine Urobilinogen Dipstick 2.0 mg/dL (0.2 mg/dL) Urine Leukocyte Esterase Trace (NEG) Urine RBC 1-2 /HPF (0-2) Urine WBC 0 /HPF (0-4) Urine Squamous Epithelial Cells Few /LPF Urine Bacteria 0 /HPF (0-FEW) Urine Hyaline Casts Few /HPF Urine Mucus Marked /LPF White Blood Count 16.8 x10^3/uL (4.0-11.0) Red Blood Count 4.74 x10^6/uL (3.50-5.40) Hemoglobin 13.1 g/dL (12.0-15.5) Hematocrit 39.8 % (36.0-47.0) Mean Corpuscular Volume 84 fL (79-100) Mean Corpuscular Hemoglobin 28 pg (25-35) Mean Corpuscular Hemoglobin Concent 33 g/dL (31-37) Red Cell Distribution Width 13.6 % (11.5-14.5) Platelet Count 370 x10^3/uL (140-400) Neutrophils (%) (Auto) 84 % (31-73) Lymphocytes (%) (Auto) 6 % (24-48) Monocytes (%) (Auto) 8 % (0-9) Eosinophils (%) (Auto) 0 % (0-3) Basophils (%) (Auto) 1 % (0-3) Neutrophils # (Auto) 14.2 x10^3uL (1.8-7.7) Lymphocytes # (Auto) 1.1 x10^3/uL (1.0-4.8) Monocytes # (Auto) 1.4 x10^3/uL (0.0-1.1) Eosinophils # (Auto) 0.0 x10^3/uL (0.0-0.7) Basophils # (Auto) 0.1 x10^3/uL (0.0-0.2) Segmented Neutrophils % 72 % (35-66) Band Neutrophils % 11 % (0-9) Lymphocytes % 6 % (24-48) Monocytes % 11 % (0-10) Platelet Estimate Adequate (ADEQUATE) Prothrombin Time 13.7 SEC (11.7-14.0) Prothromb Time International Ratio 1.1 (0.8-1.1) Activated Partial Thromboplast Time 48 SEC (24-38) Sodium Level 141 mmol/L (136-145) Potassium Level 3.2 mmol/L (3.5-5.1) Chloride Level 106 mmol/L (98-107) Carbon Dioxide Level 26 mmol/L (21-32) Anion Gap 9 (6-14) Blood Urea Nitrogen 14 mg/dL (7-20) Creatinine 1.0 mg/dL (0.6-1.0) Estimated GFR (Cockcroft-Gault) 55.5 BUN/Creatinine Ratio 14 (6-20) Glucose Level 153 mg/dL (70-99) Lactic Acid Level 1.1 mmol/L (0.4-2.0) 2.3 mmol/L (0.4-2.0) Calcium Level 8.8 mg/dL (8.5-10.1) Total Bilirubin 1.6 mg/dL (0.2-1.0) Aspartate Amino Transf (AST/SGOT) 11 U/L (15-37) Alanine Aminotransferase (ALT/SGPT) 20 U/L (14-59) Alkaline Phosphatase 92 U/L (46-116) Total Protein 7.7 g/dL (6.4-8.2) Albumin 3.0 g/dL (3.4-5.0) Albumin/Globulin Ratio 0.6 (1.0-1.7) Lipase 104 U/L (73-393) Glucose (Fingerstick) 206 mg/dL (70-99) Test 11/09/17 00:55 11/09/17 07:39 11/09/17 08:00 11/09/17 11:23 White Blood Count 22.5 x10^3/uL (4.0-11.0) Red Blood Count 4.58 x10^6/uL (3.50-5.40) Hemoglobin 12.7 g/dL (12.0-15.5) Hematocrit 38.7 % (36.0-47.0) Mean Corpuscular Volume 85 fL (79-100) Mean Corpuscular Hemoglobin 28 pg (25-35) Mean Corpuscular Hemoglobin Concent 33 g/dL (31-37) Red Cell Distribution Width 13.5 % (11.5-14.5) Platelet Count 348 x10^3/uL (140-400) Neutrophils (%) (Auto) 84 % (31-73) Lymphocytes (%) (Auto) 7 % (24-48) Monocytes (%) (Auto) 9 % (0-9) Eosinophils (%) (Auto) 0 % (0-3) Basophils (%) (Auto) 1 % (0-3) Neutrophils # (Auto) 18.8 x10^3uL (1.8-7.7) Lymphocytes # (Auto) 1.5 x10^3/uL (1.0-4.8) Monocytes # (Auto) 2.0 x10^3/uL (0.0-1.1) Eosinophils # (Auto) 0.0 x10^3/uL (0.0-0.7) Basophils # (Auto) 0.1 x10^3/uL (0.0-0.2) Sodium Level 141 mmol/L (136-145) Potassium Level 3.2 mmol/L (3.5-5.1) Chloride Level 106 mmol/L (98-107) Carbon Dioxide Level 25 mmol/L (21-32) Anion Gap 10 (6-14) Blood Urea Nitrogen 18 mg/dL (7-20) Creatinine 1.3 mg/dL (0.6-1.0) Estimated GFR (Cockcroft-Gault) 41.0 Glucose Level 153 mg/dL (70-99) Lactic Acid Level 2.2 mmol/L (0.4-2.0) Calcium Level 8.1 mg/dL (8.5-10.1) Glucose (Fingerstick) 166 mg/dL (70-99) 119 mg/dL (70-99) Clostridium difficile Toxin (PCR) Negative (Negative) Test 11/09/17 17:05 11/09/17 20:00 11/10/17 08:18 11/10/17 08:56 Glucose (Fingerstick) 117 mg/dL (70-99) 143 mg/dL (70-99) 147 mg/dL (70-99) White Blood Count 14.4 x10^3/uL (4.0-11.0) Red Blood Count 3.82 x10^6/uL (3.50-5.40) Hemoglobin 10.8 g/dL (12.0-15.5) Hematocrit 32.4 % (36.0-47.0) Mean Corpuscular Volume 85 fL (79-100) Mean Corpuscular Hemoglobin 28 pg (25-35) Mean Corpuscular Hemoglobin Concent 33 g/dL (31-37) Red Cell Distribution Width 13.5 % (11.5-14.5) Platelet Count 282 x10^3/uL (140-400) Neutrophils (%) (Auto) 83 % (31-73) Lymphocytes (%) (Auto) 6 % (24-48) Monocytes (%) (Auto) 8 % (0-9) Eosinophils (%) (Auto) 3 % (0-3) Basophils (%) (Auto) 0 % (0-3) Neutrophils # (Auto) 11.9 x10^3uL (1.8-7.7) Lymphocytes # (Auto) 0.9 x10^3/uL (1.0-4.8) Monocytes # (Auto) 1.2 x10^3/uL (0.0-1.1) Eosinophils # (Auto) 0.4 x10^3/uL (0.0-0.7) Basophils # (Auto) 0.1 x10^3/uL (0.0-0.2) Laboratory Tests Test 11/09/17 11:23 11/09/17 17:05 11/09/17 20:00 11/10/17 08:18 Glucose (Fingerstick) 119 mg/dL (70-99) 117 mg/dL (70-99) 143 mg/dL (70-99) 147 mg/dL (70-99) Test 11/10/17 08:56 White Blood Count 14.4 x10^3/uL (4.0-11.0) Red Blood Count 3.82 x10^6/uL (3.50-5.40) Hemoglobin 10.8 g/dL (12.0-15.5) Hematocrit 32.4 % (36.0-47.0) Mean Corpuscular Volume 85 fL (79-100) Mean Corpuscular Hemoglobin 28 pg (25-35) Mean Corpuscular Hemoglobin Concent 33 g/dL (31-37) Red Cell Distribution Width 13.5 % (11.5-14.5) Platelet Count 282 x10^3/uL (140-400) Neutrophils (%) (Auto) 83 % (31-73) Lymphocytes (%) (Auto) 6 % (24-48) Monocytes (%) (Auto) 8 % (0-9) Eosinophils (%) (Auto) 3 % (0-3) Basophils (%) (Auto) 0 % (0-3) Neutrophils # (Auto) 11.9 x10^3uL (1.8-7.7) Lymphocytes # (Auto) 0.9 x10^3/uL (1.0-4.8) Monocytes # (Auto) 1.2 x10^3/uL (0.0-1.1) Eosinophils # (Auto) 0.4 x10^3/uL (0.0-0.7) Basophils # (Auto) 0.1 x10^3/uL (0.0-0.2) Vitals Vital Signs Date Time Temp Pulse Resp B/P (MAP) Pulse Ox O2 Delivery O2 Flow Rate FiO2 11/10/17 08:21 96 Room Air 11/10/17 07:00 98.6 96 18 158/48 (84) 98.6 11/09/17 11:02 2.0 Assessment Assessment IMPRESSION: 1. Abdominal pain with abnormal ct showing fluid collection, status post IR drainage of blood stained drainage, on empiric IV antibiotics. 2. History of hernia repair with mesh placement, September 2017. 3. Diabetes. 4. Subdural hematoma. 5. History of previous exploratory laparotomy for small bowel resection, removal of mesh, ventral incisional hernia repair and debridement of abdominal wall, 08/10/2016. 6. Leukocytosis from abdominal pain. 7. Tobaccoism. 8. Status post hysterectomy. 9. Mild cognitive impairment, status post subdural hematoma at baseline per at bedside. Plan Plan 1. Continue empiric IV vancomycin and Zosyn. 2. We will add empiric Diflucan. 3. Follow up cultures and lab in a.m. 4. Continue supportive care. 5. General Surgery is following. LAURITA LAURENT MD Nov 10, 2017 09:50
[2017-11-10 09:55] LABS: POTASSIUM 2.9 mmol/L (3.5-5.1)
[2017-11-10 09:56] LABS: VANC TR 29.6 mcg/mL (10.0-20.0)
--- NOTE | 2017-11-10 10:18 | PDOC ---
PROGRESS NOTES Subjective Subjective feels ok Objective Objective Vital Signs Date Time Temp Pulse Resp B/P (MAP) Pulse Ox O2 Delivery O2 Flow Rate FiO2 11/10/17 09:44 Room Air 11/10/17 08:21 96 11/10/17 07:00 98.6 96 18 158/48 (84) 98.6 11/09/17 11:02 2.0 Intake and Output 11/10/17 07:00 Intake Total 500 ml Output Total 160 ml Balance 340 ml IV Total 500 ml Output Drainage Total 160 ml # Voids 3 # Bowel Movements 14 Physical Exam Abdomen: Soft, Other (drain in place, bloody drainage) Extremities: No clubbing, No cyanosis General: Alert, Oriented X3, Cooperative, No acute distress HEENT: Atraumatic Lungs: Normal air movement MUSCULOSKELETAL: No deformity Neuro: Normal speech, Sensation intact Skin: No rashes, No breakdown COMMENT drain abd wall Diagnosis Problem List Problems Medical Problems: (1) Abdominal wall fluid collections Status: Acute Assessment Assessment Problems Medical Problems: (1) Abdominal wall fluid collections Status: Acute FINAL IMPRESSION: Abdominal wall abscess 1. Infected abdominal mesh. The patient had hernia repair done a couple of months ago. 2. Recurrent ventral hernia. 3. History of subdural hematoma with late sequelae. 4. Chronic obstructive pulmonary disease. 5. Smoking history. 6. Accelerated hypertension. PLAN: fevers down wbc 14 down with antibiotics, Vanco+zosyn+diflucan cr 2.2 due to ATN from sepsis. low pot 2.9 replace today. Ir placed drainage yesterday. At this time, admit to the hospital after culture was done, start on broad-spectrum antibiotic, vancomycin and Zosyn. ID was consulted. Surgery was consulted and plan is to recommend IR to drain the fluid and put a drain and see how the patient's condition improves in the next couple of days. Plan Plan of Care Problems Medical Problems: (1) Abdominal wall fluid collections Status: Acute Comment Review of Relevant I have reviewed the following items ranulfo (where applicable) has been applied. Labs Laboratory Tests Test 11/09/17 11:23 11/09/17 17:05 11/09/17 20:00 11/10/17 08:18 Glucose (Fingerstick) 119 mg/dL (70-99) 117 mg/dL (70-99) 143 mg/dL (70-99) 147 mg/dL (70-99) Test 11/10/17 08:56 White Blood Count 14.4 x10^3/uL (4.0-11.0) Red Blood Count 3.82 x10^6/uL (3.50-5.40) Hemoglobin 10.8 g/dL (12.0-15.5) Hematocrit 32.4 % (36.0-47.0) Mean Corpuscular Volume 85 fL (79-100) Mean Corpuscular Hemoglobin 28 pg (25-35) Mean Corpuscular Hemoglobin Concent 33 g/dL (31-37) Red Cell Distribution Width 13.5 % (11.5-14.5) Platelet Count 282 x10^3/uL (140-400) Neutrophils (%) (Auto) 83 % (31-73) Lymphocytes (%) (Auto) 6 % (24-48) Monocytes (%) (Auto) 8 % (0-9) Eosinophils (%) (Auto) 3 % (0-3) Basophils (%) (Auto) 0 % (0-3) Neutrophils # (Auto) 11.9 x10^3uL (1.8-7.7) Lymphocytes # (Auto) 0.9 x10^3/uL (1.0-4.8) Monocytes # (Auto) 1.2 x10^3/uL (0.0-1.1) Eosinophils # (Auto) 0.4 x10^3/uL (0.0-0.7) Basophils # (Auto) 0.1 x10^3/uL (0.0-0.2) Sodium Level 144 mmol/L (136-145) Potassium Level 2.9 mmol/L (3.5-5.1) Chloride Level 109 mmol/L (98-107) Carbon Dioxide Level 22 mmol/L (21-32) Anion Gap 13 (6-14) Blood Urea Nitrogen 25 mg/dL (7-20) Creatinine 2.2 mg/dL (0.6-1.0) Estimated GFR (Cockcroft-Gault) 22.3 Glucose Level 171 mg/dL (70-99) Calcium Level 7.8 mg/dL (8.5-10.1) Vancomycin Level Trough 29.6 mcg/mL (10.0-20.0) Vancomycin Last Dose Date 11/09/17 Vancomycin Last Dose Time 2100 Microbiology 11/08/17 Blood Culture - Preliminary, Resulted NO GROWTH AFTER 1 DAY 11/08/17 Aerobic Culture, Resulted Pending 11/08/17 Aerobic Culture Result 1 (JLUIS), Resulted Pending 11/08/17 Gram Stain - Final, Resulted 11/08/17 Gram Stain Result 1 (JLUIS) - Final, Resulted 11/08/17 Gram Stain Result 2 (JLUIS) - Final, Resulted Medications Current Medications Amitriptyline HCl (Elavil) 10 mg QHS PO Last administered on 11/09/17at 22:03; Start 11/09/17 at 21:00 Benzonatate (Tessalon Perle) 100 mg [id number] PO ; Start 11/09/17 at 14:00 Fluconazole/ Sodium Chloride 100 ml @ 100 mls/hr Q24H IV Last administered on 11/09/17at 13:22; Start 11/09/17 at 13:00 Lidocaine/Sodium Bicarbonate (Buffered Lidocaine 1%) 3 ml 1X ONCE INJ Last administered on 11/09/17at 11:03; Start 11/09/17 at 11:00; Stop 11/09/17 at 11:01 ; Status DC Lidocaine/Sodium Bicarbonate (Buffered Lidocaine 1%) 3 ml STK-MED ONCE .ROUTE ; Start 11/09/17 at 10:23; Stop 11/09/17 at 10:24; Status DC Vancomycin HCl (Vanco Per Pharmacy) 1 each PRN DAILY PRN MC SEE COMMENTS Last administered on 11/09/17at 13:47; Start 11/09/17 at 14:00 Vancomycin HCl (Vancomycin Trough Level) 1 each 1X ONCE MC ; Start 11/10/17 at 08:30; Stop 11/10/17 at 08:31; Status DC Vitals/I & O Vital Sign - Last 24 Hours 11/09/17 11/09/17 11/09/17 11/09/17 11:02 11:15 11:30 11:45 Pulse 92 91 95 93 Resp 16 B/P (MAP) 140/78 (98) 155/59 (91) 137/59 (85) 124/56 (78) Pulse Ox 96 O2 Delivery Nasal Cannula O2 Flow Rate 2.0 11/09/17 11/09/17 11/09/17 11/09/17 12:00 12:30 13:00 14:00 Pulse 95 95 100 101 B/P (MAP) 148/57 (87) 146/60 (88) 140/73 (95) 137/68 (91) 11/09/17 11/09/17 11/09/17 11/09/17 15:00 15:00 16:04 19:00 Temp 101.2 98.9 101.2 98.9 Pulse 100 100 97 Resp 18 18 B/P (MAP) 155/60 (91) 155/60 (91) 139/59 (85) Pulse Ox 93 96 97 O2 Delivery Room Air Room Air Room Air 11/09/17 11/09/17 11/09/17 11/09/17 20:10 20:14 23:00 23:27 Temp 98.9 98.9 Pulse 95 Resp 18 B/P (MAP) 154/55 (88) Pulse Ox 95 O2 Delivery Room Air Room Air Room Air Room Air 11/10/17 11/10/17 11/10/17 11/10/17 00:27 03:00 07:00 08:21 Temp 98.9 98.6 98.9 98.6 Pulse 89 96 Resp 18 18 B/P (MAP) 148/59 (88) 158/48 (84) Pulse Ox 95 96 95 96 O2 Delivery Room Air Room Air Room Air Room Air 11/10/17 09:44 O2 Delivery Room Air Intake and Output 11/09/17 11/09/17 11/10/17 15:00 23:00 07:00 Intake Total 500 ml Output Total 20 ml 90 ml 50 ml Balance -20 ml -90 ml 450 ml CHRISTOPH LE MD Nov 10, 2017 10:18
[2017-11-10] MEDS ORDERED: POTASSIUM CHLORIDE 20 MEQ TABLET.ER. PO ONE ×2 (10:30→12:30)
[2017-11-10 11:11] VITALS: BP 153/85
[2017-11-10] MEDS: VANCOMYCIN PER PHARMACY MC PRN (12:27)
[2017-11-10] MEDS: FLUCONAZOLE 200MG/100ML PREMIX 100 ML IV SCH (12:59)
[2017-11-10] MEDS: IV NORMAL SALINE 1000ML BAG 1,000 ML IV SCH ×2 (13:01→21:00)
[2017-11-10] MEDS: PIPERACILLIN/TAZOBACTAM 2.25 GM in IV NORMAL SALINE 50ML 50 ML IV SCH ×3 (14:47→23:11)
[2017-11-10 14:56] VITALS: BP 154/71
[2017-11-10 19:00] VITALS: BP 132/55
[2017-11-10] MEDS: LACTOBACILLUS RHAMNOSUS GG 1 CAPSULE. PO SCH (20:46)
[2017-11-10] MEDS: AMITRIPTYLINE HCL 10 MG TABLET. PO SCH (20:46)
[2017-11-10 23:00] VITALS: BP 115/61
[2017-11-11 03:00] VITALS: BP 115/60
[2017-11-11] MEDS: PIPERACILLIN/TAZOBACTAM 2.25 GM in IV NORMAL SALINE 50ML 50 ML IV SCH (06:11)
[2017-11-11 07:00] VITALS: BP 130/55
[2017-11-11] MEDS: IV NORMAL SALINE 1000ML BAG 1,000 ML IV SCH (07:00)
[2017-11-11] MEDS: IPRATRPIUM/ALBUTEROL 0.5/2.5MG 3 ML NEBU. NEB SCH ×4 (07:08→20:04)
[2017-11-11] MEDS: INSULIN LISPRO 300 UNITS/3 ML INSULN.PEN. SQ SCH ×3 (08:00→17:00)
[2017-11-11] MEDS: BRIMONIDINE 0.2% OPHTH SOLUTION 5ML BOTTLE. OD SCH (09:00)
[2017-11-11] MEDS: LATANOPROST 0.005% OPHTH SOLUTION 2.5ML BOTTLE. OD SCH (09:00)
[2017-11-11] MEDS ORDERED: VANCOMYCIN RANDOM LEVEL. MC ONE (09:00)
[2017-11-11] MEDS: DORZOLAMIDE 2% OPHTH SOLUTION 10ML BOTTLE. OD SCH (09:00)
[2017-11-11] MEDS: TIMOLOL 0.5% OPHTH SOLUTION 5ML BOTTLE. OD SCH (09:00)
[2017-11-11 09:01] LABS: BASO # 0.1 x10^3/uL (0.0-0.2); BASO % 1 % (0-3); EOS # 0.5 x10^3/uL (0.0-0.7); EOS % 4 % (0-3); HEMOGLOBIN 10.4 g/dL (12.0-15.5); LYMPH # 0.9 x10^3/uL (1.0-4.8); LYMPH % 7 % (24-48); MEAN CORPUSCULAR HEMOGLOBIN 28 pg (25-35); MEAN CORPUSCULAR HGB CONC 33 g/dL (31-37); MEAN CORPUSCULAR VOLUME 86 fL (79-100); MONO # 1.1 x10^3/uL (0.0-1.1); MONO % 9 % (0-9); NEUT # 9.6 x10^3uL (1.8-7.7); NEUT % 79 % (31-73); PLATELET COUNT 329 x10^3/uL (140-400); RED BLOOD COUNT 3.74 x10^6/uL (3.50-5.40); WHITE BLOOD COUNT 12.2 x10^3/uL (4.0-11.0)
[2017-11-11 09:21] LABS: CALCIUM 7.9 mg/dL (8.5-10.1); CREATININE 2.4 mg/dL (0.6-1.0); GFR 20.2; POTASSIUM 3.9 mmol/L (3.5-5.1)
--- NOTE | 2017-11-11 09:23 | PDOC ---
Infectious Disease Note Subjective: Subjective Pt feels better,wants to go home today tolerating meals well abdo pain is under control fever pattern improving no n/v/d creat is high ROS: ROS Negative except for above. Vital Signs: Vital Signs Vital Signs Date Time Temp Pulse Resp B/P (MAP) Pulse Ox O2 Delivery O2 Flow Rate FiO2 11/11/17 07:09 96 Room Air 11/11/17 07:00 98.5 87 18 130/55 (80) 98.5 11/10/17 20:00 2.0 Physical Exam: PHYSICAL EXAM General appearance - alert,well appearing, and in mild distress ,oriented to person, place, and time slow in answering questions m,baseline per at bedside Head - normal anicteric Chest - clear to auscultation, no wheezes, rales or rhonchi, symmetric air entry Heart - S1 and S2 normal Abdomen - soft, drain in rlq,diffusely tender, mildly distended Neurological - alert and oriented Musculoskeletal - no muscular tenderness noted Extremities - no pedal edema Skin - warm and dry Mental Status - alert, cooperative Medications: Inpatient Meds: Current Medications Medications (Trade) Dose Ordered Sig/Maite Start Time Stop Time Status Last Admin Dose Admin Acetaminophen (Tylenol) 650 mg PRN Q8HRS PRN 11/08/17 20:30 11/09/17 15:02 650 MG Acetaminophen/ Hydrocodone Bitart (Lortab 5/325) 1 tab PRN Q6HRS PRN 11/08/17 18:45 11/10/17 16:23 1 TAB Albuterol Sulfate (Ventolin Neb Soln) 2.5 mg PRN DAILY PRN 11/09/17 09:45 Albuterol/ Ipratropium (Duoneb) 3 ml RTQID 11/08/17 20:00 11/11/17 07:08 3 ML Amitriptyline HCl (Elavil) 10 mg QHS 11/09/17 21:00 11/10/17 20:46 10 MG Benzonatate (Tessalon Perle) 100 mg [id number] 11/09/17 14:00 Brimonidine Tartrate (Alphagan) 1 drop BID 11/09/17 10:00 Calcium Carbonate/ Glycine (Oscal) 500 mg DAILY 11/09/17 10:00 8/30/18 09:23 500 MG Dextrose (Dextrose 50%-Water Syringe) 12.5 gm PRN Q15MIN PRN 11/08/17 20:30 Dorzolamide HCl (Trusopt) 1 drop BID 11/09/17 10:00 Fluconazole/ Sodium Chloride 100 ml @ 100 mls/hr Q24H 11/09/17 13:00 11/10/17 12:59 100 MLS/HR Ibuprofen (Motrin) 600 mg PRN Q6HRS PRN 11/09/17 09:45 Info (CONTRAST GIVEN -- Rx MONITORING) 1 each PRN DAILY PRN 11/08/17 13:00 11/10/17 12:59 DC Insulin Human Lispro (HumaLOG) 2 units 1X ONCE 11/08/17 21:00 11/08/17 21:01 DC 11/08/17 21:26 2 UNITS Iohexol (Omnipaque 300 Mg/ml) 75 ml 1X ONCE 11/08/17 13:00 11/08/17 13:01 DC 11/08/17 13:00 75 ML Labetalol HCl (Normodyne Iv Push) 20 mg 1X ONCE 11/08/17 15:00 11/08/17 15:02 DC 11/08/17 15:17 20 MG Lactobacillus Rhamnosus (Culturelle) 1 cap BID 11/10/17 21:00 11/10/17 20:46 1 CAP Latanoprost (Xalatan) 1 drop BID 11/09/17 10:00 Lidocaine/Sodium Bicarbonate (Buffered Lidocaine 1%) 3 ml 1X ONCE 11/09/17 11:00 11/09/17 11:01 DC 11/09/17 11:03 4 ML Meclizine HCl (Antivert) 25 mg PRN Q8HRS PRN 11/09/17 09:45 Multivitamins (Thera M Plus) 1 tab DAILY 11/09/17 10:00 11/10/17 09:23 1 TAB Piperacillin Sod/ Tazobactam Sod (Zosyn Per Pharmacy) 1 each PRN DAILY PRN 11/08/17 15:00 Piperacillin Sod/ Tazobactam Sod 2.25 gm/Sodium Chloride 50 ml @ 100 mls/hr Q6HRS 11/10/17 13:00 11/11/17 06:11 100 MLS/HR Piperacillin Sod/ Tazobactam Sod 3.375 gm/Sodium Chloride 50 ml @ 100 mls/hr Q6HRS 11/08/17 23:00 11/10/17 12:33 DC 11/10/17 05:31 100 MLS/HR Potassium Chloride (Klor-Con) 20 meq 1X ONCE 11/10/17 12:30 11/10/17 12:31 DC 11/10/17 12:58 20 MEQ Sodium Chloride 1,000 ml @ 100 mls/hr Q10H 11/08/17 19:00 11/10/17 13:01 100 MLS/HR Timolol Maleate (Timoptic 0.5% Oph) 1 drop BID 11/09/17 10:00 Vancomycin HCl (Vanco Per Pharmacy) 1 each PRN DAILY PRN 11/09/17 14:00 11/10/17 12:27 1 EACH Vancomycin HCl (Vancomycin Random Level) 1 each 1X ONCE 11/11/17 09:00 11/11/17 09:01 DC Vancomycin HCl (Vancomycin Trough Level) 1 each 1X ONCE 11/10/17 08:30 11/10/17 08:31 DC Vancomycin HCl 1.5 gm/Sodium Chloride 500 ml @ 250 mls/hr Q12H 11/09/17 09:00 11/10/17 09:57 DC 11/09/17 22:04 250 MLS/HR Vancomycin HCl 2 gm/Sodium Chloride 500 ml @ 250 mls/hr 1X ONCE 11/08/17 20:45 11/08/17 22:44 DC 11/08/17 21:04 250 MLS/HR Labs: Lab Laboratory Tests Test 11/10/17 11:39 11/10/17 16:49 11/10/17 20:46 11/11/17 07:25 Glucose (Fingerstick) 144 mg/dL (70-99) 132 mg/dL (70-99) 125 mg/dL (70-99) 123 mg/dL (70-99) Test 11/11/17 08:40 White Blood Count 12.2 x10^3/uL (4.0-11.0) Red Blood Count 3.74 x10^6/uL (3.50-5.40) Hemoglobin 10.4 g/dL (12.0-15.5) Hematocrit 32.0 % (36.0-47.0) Mean Corpuscular Volume 86 fL (79-100) Mean Corpuscular Hemoglobin 28 pg (25-35) Mean Corpuscular Hemoglobin Concent 33 g/dL (31-37) Red Cell Distribution Width 14.0 % (11.5-14.5) Platelet Count 329 x10^3/uL (140-400) Neutrophils (%) (Auto) 79 % (31-73) Lymphocytes (%) (Auto) 7 % (24-48) Monocytes (%) (Auto) 9 % (0-9) Eosinophils (%) (Auto) 4 % (0-3) Basophils (%) (Auto) 1 % (0-3) Neutrophils # (Auto) 9.6 x10^3uL (1.8-7.7) Lymphocytes # (Auto) 0.9 x10^3/uL (1.0-4.8) Monocytes # (Auto) 1.1 x10^3/uL (0.0-1.1) Eosinophils # (Auto) 0.5 x10^3/uL (0.0-0.7) Basophils # (Auto) 0.1 x10^3/uL (0.0-0.2) Random Vancomycin Level 15.9 mcg/mL Micro BC neg RUN DATE: 11/10/17 PAGE 1 RUN TIME: 2808 [facility] [address] [place] [address] Christopher Barroso M.D., Drawing Machine Operator PATIENT: LYNNERICKY Huntley ACCT: [id number] LOC: [address] [place] [address] U : [id number] AGE/SX: 67/F ROOM: 430 REG : 11/08/[address]: CHRISTOPH LE MD : 1950 BED: 1 DIS : STATUS: ADM IN TLOC: SPEC #: [id number] SVEN: 11/08/17 STATUS: COMP REQ #: [id number] RECD: 11/08/[address]: AHMET SHELBY MD SOURCE: STRA CATH ENTR: 11/08/[address]: CHRISTOPH LE MD SPDESC: STR CATH ORDERED: URINE CULTURE Procedure Result URINE CULTURE Final Final report URINE CULTURE RES 1 Final No growth Performed at: DA - [facility] [address], [place], [place] [id number] Window Shade Estimator: PARVEEN Jacques MD, Phone: [phone] RUN DATE: 11/10/17 PAGE 1 RUN TIME: 1714 [facility] [address] [place] [address] Christopher Barroso M.D., Drawing Machine Operator PATIENT: RICKY BATISTA ACCT: [id number] LOC: [address] [place] [address] U : [id number] AGE/SX: 67/F ROOM: 430 REG : 11/08/[address]: CHRISTOPH LE MD : 1950 BED: 1 DIS : STATUS: ADM IN TLOC: SPEC #: [id number] SVEN: 11/08/17 STATUS: RES REQ #: [id number] RECD: 11/08/17-[address]: AHMET SHELBY MD SOURCE: ABDOMEN ENTR: 11/08/17-[address]: CHRISTOPH LE MD SPDC: DRAINAGE ORDERED: AEROBIC CULT GS Procedure Result AEROBIC CULTURE Preliminary Preliminary report AEROBIC RES 1 Preliminary Staphylococcus aureus 4+ Performed at: [address], [place], [place] [id number] Window Shade Estimator: PARVEEN Jacques MD, Phone: [phone] GRAM STAIN Final Final report GRAM STAIN RESULT 1 Final Comment No white blood cells seen. GRAM STAIN RESULT 2 Final Comment Many gram positive cocci. Performed at: [address], [place], [place] [id number] Window Shade Estimator: PARVEEN Jacques MD, Phone: [phone] RUN DATE: 11/10/17 PAGE 1 RUN TIME: 1813 [facility] [address] [place] [address] Christopher Barroso M.D., Drawing Machine Operator PATIENT: RICKY BATISTA ACCT: [id number] LOC: [address] [place] [address] U : [id number] AGE/SX: 67/F ROOM: 430 REG : 11/08/[address]: CHRISTOPH LE MD : 1950 BED: 1 DIS : STATUS: ADM IN TLOC: SPEC #: [id number] SVEN: 11/09/17 STATUS: RES REQ #: [id number] RECD: 11/09/17 [facility] DR: LEXII HUBBARD MD SOURCE: ABD FLUID ENTR: 11/09/[address]: MARIIA LAURENT MD SPDC: CHRISTOPH LE MD, STEPHEN J MD ORDERED: ANAER/AEROB/GS Procedure Result ANAEROBIC-AEROBIC CULTURE PENDING ANAEROBIC RES 1 PENDING AEROBIC CULT PENDING AEROBIC RES 1 PENDING GRAM STAIN Final Final report GRAM STAIN RES 1 Final Comment Few white blood cells. GRAM STAIN RES 2 Final No organisms seen Performed at: - [facility], [place], [place] [id number] Window Shade Estimator: PARVEEN Jacques MD, Phone: [phone] Objective: Assessment: 1. Abdominal pain with abnormal ct showing fluid collection, no intraabdominal abnormality status post IR c/s staph .ID and JLUIS pending BC neg 2. History of hernia repair with phasix mesh placement, September 2017. 3. Diabetes. 4. Subdural hematoma. 5. History of previous exploratory laparotomy for small bowel resection, removal of mesh, ventral incisional hernia repair and debridement of abdominal wall, 08/10/2016. 6. Leukocytosis from abdominal pain. 7. Tobaccoism. 8. Status post hysterectomy. 9. Mild cognitive impairment, status post subdural hematoma at baseline per at bedside. 10. GOLDY Plan: Plan of Care Continue empiric IV Zosyn,renal dosing, pharmacy assisting DC IV Vanc, Diflucan start zyvox Due to presence of mesh, and staph on c/s , antibiotics alone may not be optimal Nephrology consulted for GOLDY Hold dc home as planned D/W Pt and at bedside LAURITA LAURENT MD Nov 11, 2017 09:23
[2017-11-11] MEDS: CALCIUM CARBONATE 500 MG TABLET PO SCH (09:32)
[2017-11-11] MEDS: MULTIVITAMIN with MINERAL TABLET. PO SCH (09:32)
--- NOTE | 2017-11-11 09:32 | PDOC ---
PROGRESS NOTES Subjective Subjective feeling better ,anxious to go home Objective Objective Vital Signs Date Time Temp Pulse Resp B/P (MAP) Pulse Ox O2 Delivery O2 Flow Rate FiO2 11/11/17 07:09 96 Room Air 11/11/17 07:00 98.5 87 18 130/55 (80) 98.5 11/10/17 20:00 2.0 Intake and Output 11/11/17 07:00 Intake Total 620 ml Output Total 135 ml Balance 485 ml Intake Oral 620 ml Output Drainage Total 135 ml # Voids 3 # Bowel Movements 1 Physical Exam Abdomen: Soft, Other (drain in place, bloody drainage) Extremities: No clubbing, No cyanosis General: Alert, Oriented X3, Cooperative, No acute distress HEENT: Atraumatic Lungs: Normal air movement MUSCULOSKELETAL: No deformity Neuro: Normal speech, Sensation intact Skin: No rashes, No breakdown COMMENT drain abd wall Diagnosis Problem List Problems Medical Problems: (1) Abdominal wall fluid collections Status: Acute Assessment Assessment Problems Medical Problems: (1) Abdominal wall fluid collections Status: Acute FINAL IMPRESSION: Abdominal wall abscess/ cellulitis. 1. Infected abdominal mesh. The patient had hernia repair done a couple of months ago. 2. Recurrent ventral hernia. 3. History of subdural hematoma with late sequelae. 4. Chronic obstructive pulmonary disease. 5. Smoking history. 6. Accelerated hypertension. PLAN: fevers down wbc 12 down with antibiotics, Vanco+zosyn+diflucan cr 2.2 due to ATN from sepsis.repepat labs pending low pot 2.9 replaced yesterday Ir placed drainage 11/09. Picc line? home iv antibiotics will discuss with ID spoke with pt's . thalia on c/s from abd wall Plan Plan of Care Problems Medical Problems: (1) Abdominal wall fluid collections Status: Acute Comment Review of Relevant I have reviewed the following items ranulfo (where applicable) has been applied. Labs Laboratory Tests Test 11/10/17 11:39 11/10/17 16:49 11/10/17 20:46 11/11/17 07:25 Glucose (Fingerstick) 144 mg/dL (70-99) 132 mg/dL (70-99) 125 mg/dL (70-99) 123 mg/dL (70-99) Test 11/11/17 08:40 White Blood Count 12.2 x10^3/uL (4.0-11.0) Red Blood Count 3.74 x10^6/uL (3.50-5.40) Hemoglobin 10.4 g/dL (12.0-15.5) Hematocrit 32.0 % (36.0-47.0) Mean Corpuscular Volume 86 fL (79-100) Mean Corpuscular Hemoglobin 28 pg (25-35) Mean Corpuscular Hemoglobin Concent 33 g/dL (31-37) Red Cell Distribution Width 14.0 % (11.5-14.5) Platelet Count 329 x10^3/uL (140-400) Neutrophils (%) (Auto) 79 % (31-73) Lymphocytes (%) (Auto) 7 % (24-48) Monocytes (%) (Auto) 9 % (0-9) Eosinophils (%) (Auto) 4 % (0-3) Basophils (%) (Auto) 1 % (0-3) Neutrophils # (Auto) 9.6 x10^3uL (1.8-7.7) Lymphocytes # (Auto) 0.9 x10^3/uL (1.0-4.8) Monocytes # (Auto) 1.1 x10^3/uL (0.0-1.1) Eosinophils # (Auto) 0.5 x10^3/uL (0.0-0.7) Basophils # (Auto) 0.1 x10^3/uL (0.0-0.2) Random Vancomycin Level 15.9 mcg/mL Microbiology 11/08/17 Blood Culture - Preliminary, Resulted NO GROWTH AFTER 2 DAYS 11/09/17 Anaerobic/Aerobic Culture, Resulted Pending 11/09/17 Anaerobic Culture Result 1 (JLUIS), Resulted Pending 11/09/17 Aerobic Culture, Resulted Pending 11/09/17 Aerobic Culture Result 1 (JLUIS), Resulted Pending 11/09/17 Gram Stain - Final, Resulted 11/09/17 Gram Stain Result 1 (JLUIS) - Final, Resulted 11/09/17 Gram Stain Result 2 (JLUIS) - Final, Resulted 11/08/17 Urine Culture - Final, Complete 11/08/17 Urine Culture Result 1 (JLUIS) - Final, Complete 11/08/17 Aerobic Culture - Preliminary, Resulted 11/08/17 Aerobic Culture Result 1 (JLUIS) - Preliminary, Resulted 11/08/17 Gram Stain - Final, Resulted 11/08/17 Gram Stain Result 1 (JLUIS) - Final, Resulted 11/08/17 Gram Stain Result 2 (JLUIS) - Final, Resulted Medications Current Medications Lactobacillus Rhamnosus (Culturelle) 1 cap BID PO Last administered on at 20:46; Start 11/10/17 at 21:00 Piperacillin Sod/ Tazobactam Sod 2.25 gm/Sodium Chloride 50 ml @ 100 mls/hr Q6HRS IV Last administered on 11/11/17at 06:11; Start 11/10/17 at 13:00 Potassium Chloride (Klor-Con) 20 meq 1X ONCE PO Last administered on at 12:58; Start 11/10/17 at 12:30; Stop 11/10/17 at 12:31; Status DC Potassium Chloride (Klor-Con) 40 meq 1X ONCE PO Last administered on at 12:58; Start 11/10/17 at 10:30; Stop 11/10/17 at 10:31; Status DC Vancomycin HCl (Vancomycin Random Level) 1 each 1X ONCE MC ; Start 11/11/17 at 09:00; Stop 11/11/17 at 09:01; Status DC Vitals/I & O Vital Sign - Last 24 Hours 11/10/17 11/10/17 11/10/17 11/10/17 09:44 11:11 12:34 14:56 Temp 98.4 98.3 98.4 98.3 Pulse 94 90 Resp 18 18 B/P (MAP) 153/85 (107) 154/71 (98) Pulse Ox 93 99 O2 Delivery Room Air Room Air Room Air Room Air 11/10/17 11/10/17 11/10/17 11/10/17 16:23 16:24 17:23 19:00 Temp 98.4 98.4 Pulse 94 Resp 18 B/P (MAP) 132/55 (80) Pulse Ox 98 93 O2 Delivery Room Air Room Air Room Air Room Air 11/10/17 11/10/17 11/10/17 11/11/17 20:00 20:25 23:00 03:00 Temp 98.4 98.6 98.4 98.6 Pulse 93 85 Resp 18 18 B/P (MAP) 115/61 (79) 115/60 (78) Pulse Ox 96 94 96 O2 Delivery Room Air Room Air Room Air Room Air O2 Flow Rate 2.0 11/11/17 11/11/17 07:00 07:09 Temp 98.5 98.5 Pulse 87 Resp 18 B/P (MAP) 130/55 (80) Pulse Ox 93 96 O2 Delivery Room Air Room Air Intake and Output 11/10/17 11/10/17 11/11/17 15:00 23:00 07:00 Intake Total 400 ml 220 ml Output Total 135 ml Balance 400 ml 85 ml CHRISTOPH LE MD Nov 11, 2017 09:32
[2017-11-11] MEDS: BENZONATATE 100 MG CAPSULE. PO SCH ×2 (09:33→14:00)
[2017-11-11] MEDS: HYDROcodone/APAP 5/325MG 1 TAB TABLET PO PRN ×2 (09:33→19:42)
[2017-11-11] MEDS: LACTOBACILLUS RHAMNOSUS GG 1 CAPSULE. PO SCH ×2 (09:33→21:56)
--- NOTE | 2017-11-11 10:02 | PDOC ---
LUDMILA BROOKS RIB PULLER 11/11/17 1002: SURGICAL PROGRESS NOTE Subjective pain left abdomen Vital Signs Vital Signs Date Time Temp Pulse Resp B/P (MAP) Pulse Ox O2 Delivery O2 Flow Rate FiO2 11/11/17 09:33 96 Room Air 2.0 11/11/17 07:00 98.5 87 18 130/55 (80) 98.5 I&O Intake and Output 11/11/17 07:00 Intake Total 620 ml Output Total 135 ml Balance 485 ml Intake Oral 620 ml Output Drainage Total 135 ml # Voids 3 # Bowel Movements 1 General: Alert, Oriented X3, Cooperative, No acute distress Abdomen: Soft, Other (drain in place) Labs Laboratory Tests Test 11/09/17 11:23 11/09/17 17:05 11/09/17 20:00 11/10/17 08:18 Glucose (Fingerstick) 119 mg/dL (70-99) 117 mg/dL (70-99) 143 mg/dL (70-99) 147 mg/dL (70-99) Test 11/10/17 08:56 11/10/17 11:39 11/10/17 16:49 11/10/17 20:46 White Blood Count 14.4 x10^3/uL (4.0-11.0) Red Blood Count 3.82 x10^6/uL (3.50-5.40) Hemoglobin 10.8 g/dL (12.0-15.5) Hematocrit 32.4 % (36.0-47.0) Mean Corpuscular Volume 85 fL (79-100) Mean Corpuscular Hemoglobin 28 pg (25-35) Mean Corpuscular Hemoglobin Concent 33 g/dL (31-37) Red Cell Distribution Width 13.5 % (11.5-14.5) Platelet Count 282 x10^3/uL (140-400) Neutrophils (%) (Auto) 83 % (31-73) Lymphocytes (%) (Auto) 6 % (24-48) Monocytes (%) (Auto) 8 % (0-9) Eosinophils (%) (Auto) 3 % (0-3) Basophils (%) (Auto) 0 % (0-3) Neutrophils # (Auto) 11.9 x10^3uL (1.8-7.7) Lymphocytes # (Auto) 0.9 x10^3/uL (1.0-4.8) Monocytes # (Auto) 1.2 x10^3/uL (0.0-1.1) Eosinophils # (Auto) 0.4 x10^3/uL (0.0-0.7) Basophils # (Auto) 0.1 x10^3/uL (0.0-0.2) Sodium Level 144 mmol/L (136-145) Potassium Level 2.9 mmol/L (3.5-5.1) Chloride Level 109 mmol/L (98-107) Carbon Dioxide Level 22 mmol/L (21-32) Anion Gap 13 (6-14) Blood Urea Nitrogen 25 mg/dL (7-20) Creatinine 2.2 mg/dL (0.6-1.0) Estimated GFR (Cockcroft-Gault) 22.3 Glucose Level 171 mg/dL (70-99) Calcium Level 7.8 mg/dL (8.5-10.1) Vancomycin Level Trough 29.6 mcg/mL (10.0-20.0) Vancomycin Last Dose Date 11/09/17 Vancomycin Last Dose Time 2100 Glucose (Fingerstick) 144 mg/dL (70-99) 132 mg/dL (70-99) 125 mg/dL (70-99) Test 11/11/17 07:25 11/11/17 08:40 Glucose (Fingerstick) 123 mg/dL (70-99) White Blood Count 12.2 x10^3/uL (4.0-11.0) Red Blood Count 3.74 x10^6/uL (3.50-5.40) Hemoglobin 10.4 g/dL (12.0-15.5) Hematocrit 32.0 % (36.0-47.0) Mean Corpuscular Volume 86 fL (79-100) Mean Corpuscular Hemoglobin 28 pg (25-35) Mean Corpuscular Hemoglobin Concent 33 g/dL (31-37) Red Cell Distribution Width 14.0 % (11.5-14.5) Platelet Count 329 x10^3/uL (140-400) Neutrophils (%) (Auto) 79 % (31-73) Lymphocytes (%) (Auto) 7 % (24-48) Monocytes (%) (Auto) 9 % (0-9) Eosinophils (%) (Auto) 4 % (0-3) Basophils (%) (Auto) 1 % (0-3) Neutrophils # (Auto) 9.6 x10^3uL (1.8-7.7) Lymphocytes # (Auto) 0.9 x10^3/uL (1.0-4.8) Monocytes # (Auto) 1.1 x10^3/uL (0.0-1.1) Eosinophils # (Auto) 0.5 x10^3/uL (0.0-0.7) Basophils # (Auto) 0.1 x10^3/uL (0.0-0.2) Sodium Level 148 mmol/L (136-145) Potassium Level 3.9 mmol/L (3.5-5.1) Chloride Level 114 mmol/L (98-107) Carbon Dioxide Level 23 mmol/L (21-32) Anion Gap 11 (6-14) Blood Urea Nitrogen 27 mg/dL (7-20) Creatinine 2.4 mg/dL (0.6-1.0) Estimated GFR (Cockcroft-Gault) 20.2 Glucose Level 138 mg/dL (70-99) Calcium Level 7.9 mg/dL (8.5-10.1) Random Vancomycin Level 15.9 mcg/mL Laboratory Tests Test 11/10/17 11:39 11/10/17 16:49 11/10/17 20:46 11/11/17 07:25 Glucose (Fingerstick) 144 mg/dL (70-99) 132 mg/dL (70-99) 125 mg/dL (70-99) 123 mg/dL (70-99) Test 11/11/17 08:40 White Blood Count 12.2 x10^3/uL (4.0-11.0) Red Blood Count 3.74 x10^6/uL (3.50-5.40) Hemoglobin 10.4 g/dL (12.0-15.5) Hematocrit 32.0 % (36.0-47.0) Mean Corpuscular Volume 86 fL (79-100) Mean Corpuscular Hemoglobin 28 pg (25-35) Mean Corpuscular Hemoglobin Concent 33 g/dL (31-37) Red Cell Distribution Width 14.0 % (11.5-14.5) Platelet Count 329 x10^3/uL (140-400) Neutrophils (%) (Auto) 79 % (31-73) Lymphocytes (%) (Auto) 7 % (24-48) Monocytes (%) (Auto) 9 % (0-9) Eosinophils (%) (Auto) 4 % (0-3) Basophils (%) (Auto) 1 % (0-3) Neutrophils # (Auto) 9.6 x10^3uL (1.8-7.7) Lymphocytes # (Auto) 0.9 x10^3/uL (1.0-4.8) Monocytes # (Auto) 1.1 x10^3/uL (0.0-1.1) Eosinophils # (Auto) 0.5 x10^3/uL (0.0-0.7) Basophils # (Auto) 0.1 x10^3/uL (0.0-0.2) Sodium Level 148 mmol/L (136-145) Potassium Level 3.9 mmol/L (3.5-5.1) Chloride Level 114 mmol/L (98-107) Carbon Dioxide Level 23 mmol/L (21-32) Anion Gap 11 (6-14) Blood Urea Nitrogen 27 mg/dL (7-20) Creatinine 2.4 mg/dL (0.6-1.0) Estimated GFR (Cockcroft-Gault) 20.2 Glucose Level 138 mg/dL (70-99) Calcium Level 7.9 mg/dL (8.5-10.1) Random Vancomycin Level 15.9 mcg/mL Problem List Problems Medical Problems: (1) Abdominal wall fluid collections Status: Acute Assessment/Plan continue drain white count improved, afebrile DANYA EPSTEIN MD 11/11/17 1624: SURGICAL PROGRESS NOTE Problem List Pt seen and examined. Agree with MsAnne Marie Brooks's note Pt feels better abd soft, ND, NTTP, drain with serous drainage cont drain and work on d/c LUDMILA BROOKS APRN Nov 11, 2017 10:02 DANYA EPTSEIN MD Nov 11, 2017 16:24
[2017-11-11 11:00] VITALS: BP 135/60
--- NOTE | 2017-11-11 11:32 | PDOC2 ---
CONSULT Date of Consult Date of Consult DATE: 11/11/17 TIME: 11:27 Reason for Consult Reason for Consult: GOLDY Referring Physician Referring Physician: REY Identification/Chief Complaint Chief Complaint ABD PAIN Source Source: Chart review History of Present Illness Reason for Visit: THIS IS A 67 YR OLD WITH ABD WALL PAIN AND FLUID COLLECTION AND INFECTION. CURRENTLY ON ANTIBIOTICS. RENAL CONSULT DUE TO GOLDY WITH CR OF 2.6 AND NA OF 148. NO CKD NOTED. CHART REVIEW SHOWED HEMODYNAMIC STABILITY BUT ALSO NO CKD NOTED. NO OTHER NEPHROTOXINS. NO OTHER HX NOTED. UO HAS REMAINED GOOD Past Medical History CENTRAL NERVOUS SYSTEM: Other (hx of subdural) GI: GERD Hepatobiliary: No pertinent hx Psych: No pertinent hx Musculoskeletal: Osteoarthritis Rheumatologic: No pertinent hx Infectious disease: No pertinent hx ENT: No pertinent hx Renal/: No pertinent hx Endocrine: Diabetes Past Surgical History Past Surgical History: Appendectomy, Cholecystectomy, Other (multiple hernia repairs, including mesh infection) Family History Family History: No Significant Social History 1 pack per day ALCOHOL: rare Lives: with Family Current Problem List Problem List Problems Medical Problems: (1) Abdominal wall fluid collections Status: Acute Current Medications Current Medications Current Medications Sodium Chloride 1,000 ml @ 1,000 mls/hr Q1H IV Last administered on 11/08/17at 13:45; Start 11/08/17 at 12:27; Stop 11/08/17 at 13:26; Status DC Iohexol (Omnipaque 300 Mg/ml) 75 ml 1X ONCE IV Last administered on 11/08/17at 13:00; Start 11/08/17 at 13:00; Stop 11/08/17 at 13:01; Status DC Info (CONTRAST GIVEN -- Rx MONITORING) 1 each PRN DAILY PRN MC SEE COMMENTS; Start 11/08/17 at 13:00; Stop 11/10/17 at 12:59; Status DC Labetalol HCl (Normodyne Iv Push) 20 mg 1X ONCE IVP Last administered on at 15:17; Start 11/08/17 at 15:00; Stop 11/08/17 at 15:02; Status DC Piperacillin Sod/ Tazobactam Sod (Zosyn Per Pharmacy) 1 each PRN DAILY PRN MC SEE COMMENTS; Start 11/08/17 at 15:00; Stop 11/11/17 at 10:21; Status DC Piperacillin Sod/ Tazobactam Sod 3.375 gm/Sodium Chloride 50 ml @ 100 mls/hr ONCE ONCE IV Last administered on 11/08/17at 15:22; Start 11/08/17 at 15:15; Stop 11/08/17 at 15:44; Status DC Piperacillin Sod/ Tazobactam Sod 3.375 gm/Sodium Chloride 50 ml @ 100 mls/hr Q6HRS IV Last administered on 11/10/17at 05:31; Start 11/08/17 at 23:00; Stop at 12:33; Status DC Acetaminophen/ Hydrocodone Bitart (Lortab 5/325) 1 tab PRN Q6HRS PRN PO PAIN Last administered on 11/11/17at 09:33; Start 11/08/17 at 18:45 Albuterol/ Ipratropium (Duoneb) 3 ml RTQID NEB Last administered on 11/11/17at 07:08; Start 11/08/17 at 20:00 Sodium Chloride 1,000 ml @ 100 mls/hr Q10H IV Last administered on 11/10/17at 13:01; Start 11/08/17 at 19:00; Stop 11/11/17 at 09:29; Status DC Acetaminophen (Tylenol) 650 mg PRN Q8HRS PRN PO temp Last administered on at 15:02; Start 11/08/17 at 20:30 Vancomycin HCl (Vanco Per Pharmacy) 1 each 1X ONCE MC Last administered on at 20:30; Start 11/08/17 at 20:30; Stop 11/08/17 at 21:32; Status DC Potassium Chloride (Klor-Con) 40 meq 1X ONCE PO Last administered on at 21:05; Start 11/08/17 at 20:30; Stop 11/08/17 at 20:35; Status DC Insulin Human Lispro (HumaLOG) 0-7 UNITS TIDWMEALS SQ ; Start 11/09/17 at 08:00 Dextrose (Dextrose 50%-Water Syringe) 12.5 gm PRN Q15MIN PRN IV SEE COMMENTS; Start 11/08/17 at 20:30 Vancomycin HCl 2 gm/Sodium Chloride 500 ml @ 250 mls/hr 1X ONCE IV Last administered on 11/08/17at 21:04; Start 11/08/17 at 20:45; Stop 11/08/17 at 22:44 ; Status DC Insulin Human Lispro (HumaLOG) 2 units 1X ONCE SQ Last administered on at 21:26; Start 11/08/17 at 21:00; Stop 11/08/17 at 21:01; Status DC Vancomycin HCl 1.5 gm/Sodium Chloride 500 ml @ 250 mls/hr Q12H IV Last administered on 11/09/17at 22:04; Start 11/09/17 at 09:00; Stop 11/10/17 at 09:57 ; Status DC Vancomycin HCl (Vancomycin Trough Level) 1 each 1X ONCE MC ; Start 11/10/17 at 08:30; Stop 11/10/17 at 08:31; Status DC Amitriptyline HCl (Elavil) 10 mg QHS PO Last administered on 11/10/17at 20:46; Start 11/09/17 at 21:00 Albuterol Sulfate (Ventolin Neb Soln) 2.5 mg PRN DAILY PRN NEB SHORTNESS OF BREATH; Start 11/09/17 at 09:45 Benzonatate (Tessalon Perle) 100 mg [id number] PO Last administered on 11/11/17at 09 :33; Start 11/09/17 at 14:00 Latanoprost (Xalatan) 1 drop BID OD ; Start 11/09/17 at 10:00; Stop 11/11/17 at 09:53; Status DC Brimonidine Tartrate (Alphagan) 1 drop BID OD ; Start 11/09/17 at 10:00; Stop at 09:53; Status DC Dorzolamide HCl (Trusopt) 1 drop BID OD ; Start 11/09/17 at 10:00; Stop at 09:53; Status DC Calcium Carbonate/ Glycine (Oscal) 500 mg DAILY PO Last administered on at 09:32; Start 11/09/17 at 10:00 Ibuprofen (Motrin) 600 mg PRN Q6HRS PRN PO INFLAMMATION; Start 11/09/17 at 09: 45 Meclizine HCl (Antivert) 25 mg PRN Q8HRS PRN PO DIZZINESS; Start 11/09/17 at 09 :45 Multivitamins (Thera M Plus) 1 tab DAILY PO Last administered on 11/11/17at 09: 32; Start 11/09/17 at 10:00 Timolol Maleate (Timoptic 0.5% Ophth) 1 drop BID OD ; Start 11/09/17 at 10:00; Stop 11/11/17 at 09:53; Status DC Lidocaine/Sodium Bicarbonate (Buffered Lidocaine 1%) 3 ml STK-MED ONCE .ROUTE ; Start 11/09/17 at 10:23; Stop 11/09/17 at 10:24; Status DC Lidocaine/Sodium Bicarbonate (Buffered Lidocaine 1%) 3 ml 1X ONCE INJ Last administered on 11/09/17at 11:03; Start 11/09/17 at 11:00; Stop 11/09/17 at 11:01 ; Status DC Fluconazole/ Sodium Chloride 100 ml @ 100 mls/hr Q24H IV Last administered on 11/10/17at 12:59; Start 11/09/17 at 13:00; Stop 11/11/17 at 10:22; Status DC Vancomycin HCl (Vanco Per Pharmacy) 1 each PRN DAILY PRN MC SEE COMMENTS Last administered on 11/10/17at 12:27; Start 11/09/17 at 14:00; Stop 11/11/17 at 10:21 ; Status DC Potassium Chloride (Klor-Con) 40 meq 1X ONCE PO Last administered on at 12:58; Start 11/10/17 at 10:30; Stop 11/10/17 at 10:31; Status DC Potassium Chloride (Klor-Con) 20 meq 1X ONCE PO Last administered on at 12:58; Start 11/10/17 at 12:30; Stop 11/10/17 at 12:31; Status DC Vancomycin HCl (Vancomycin Random Level) 1 each 1X ONCE MC Last administered on 11/11/17at 09:00; Start 11/11/17 at 09:00; Stop 11/11/17 at 10:21; Status DC Lactobacillus Rhamnosus (Culturelle) 1 cap BID PO Last administered on at 09:33; Start 11/10/17 at 21:00 Piperacillin Sod/ Tazobactam Sod 2.25 gm/Sodium Chloride 50 ml @ 100 mls/hr Q6HRS IV Last administered on 11/11/17at 06:11; Start 11/10/17 at 13:00; Stop at 10:21; Status DC Linezolid (Zyvox) 600 mg BID PO ; Start 11/11/17 at 11:00 Active Scripts Active Reported Ibuprofen 600 Mg Tablet 600 Mg PO PRN PRN Azopt (Brinzolamide) 10 Ml Drops.susp 1 Drop OD BID Amitriptyline Hcl 10 Mg Tablet 10 Mg PO QHS Calcium (Calcium Carbonate) 600 Mg Tablet 600 Mg PO DAILY Multivitamins (Multivitamin) 1 Each Capsule 1 Each PO DAILY Meclizine Hcl 25 Mg Tablet 1 Tab PO PRN TID PRN Benzonatate 100 Mg Capsule 1 Cap PO TID Ventolin Hfa Inhaler (Albuterol Sulfate) 18 Gm Hfa.aer.ad 18 Gm INH PRN PRN Lumigan (Bimatoprost) 2.5 Ml Drops 2.5 Ml OD BID Combigan Eye Drops (Brimonidine Tartrate/Timolol) 5 Ml Drops 5 Ml OD BID Allergies Allergies: Coded Allergies: No Known Drug Allergies (Unverified , 09/27/17) ROS Review of System FULL ROS NEG EXCEPT BELOW General: YES: Fatigue, Appetite PSYCHOLOGICAL ROS: YES: Anxiety Eyes: Yes Decreased vision HEENT: YES: Heacaches Respiratory: YES: Cough Gastrointestinal: Yes Nausea, Yes Abdominal Pain Genitourinary: YES Other (NOCTURIA) Musculoskeletal: Yes Muscular Weakness Neurological: Yes Weakness Skin: Yes Dry Skin Physical Exam General: Alert, No acute distress HEENT: PERRLA, EOMI, Mucous membr. moist/pink Lungs: Clear to auscultation Heart: Regular rate, Normal S1, Normal S2 Abdomen: Normal bowel sounds, Soft Extremities: No cyanosis Neuro: Normal speech, Cranial nerves 3-12 NL Psych/Mental Status: Mental status NL, Mood NL MUSCULOSKELETAL: No deformity, No swelling Vitals VITALS Vital Signs Date Time Temp Pulse Resp B/P (MAP) Pulse Ox O2 Delivery O2 Flow Rate FiO2 11/11/17 10:40 Room Air 11/11/17 09:33 96 2.0 11/11/17 07:00 98.5 87 18 130/55 (80) 98.5 Labs Labs Laboratory Tests Test 11/09/17 17:05 11/09/17 20:00 11/10/17 08:18 11/10/17 08:56 Glucose (Fingerstick) 117 mg/dL (70-99) 143 mg/dL (70-99) 147 mg/dL (70-99) White Blood Count 14.4 x10^3/uL (4.0-11.0) Red Blood Count 3.82 x10^6/uL (3.50-5.40) Hemoglobin 10.8 g/dL (12.0-15.5) Hematocrit 32.4 % (36.0-47.0) Mean Corpuscular Volume 85 fL (79-100) Mean Corpuscular Hemoglobin 28 pg (25-35) Mean Corpuscular Hemoglobin Concent 33 g/dL (31-37) Red Cell Distribution Width 13.5 % (11.5-14.5) Platelet Count 282 x10^3/uL (140-400) Neutrophils (%) (Auto) 83 % (31-73) Lymphocytes (%) (Auto) 6 % (24-48) Monocytes (%) (Auto) 8 % (0-9) Eosinophils (%) (Auto) 3 % (0-3) Basophils (%) (Auto) 0 % (0-3) Neutrophils # (Auto) 11.9 x10^3uL (1.8-7.7) Lymphocytes # (Auto) 0.9 x10^3/uL (1.0-4.8) Monocytes # (Auto) 1.2 x10^3/uL (0.0-1.1) Eosinophils # (Auto) 0.4 x10^3/uL (0.0-0.7) Basophils # (Auto) 0.1 x10^3/uL (0.0-0.2) Sodium Level 144 mmol/L (136-145) Potassium Level 2.9 mmol/L (3.5-5.1) Chloride Level 109 mmol/L (98-107) Carbon Dioxide Level 22 mmol/L (21-32) Anion Gap 13 (6-14) Blood Urea Nitrogen 25 mg/dL (7-20) Creatinine 2.2 mg/dL (0.6-1.0) Estimated GFR (Cockcroft-Gault) 22.3 Glucose Level 171 mg/dL (70-99) Calcium Level 7.8 mg/dL (8.5-10.1) Vancomycin Level Trough 29.6 mcg/mL (10.0-20.0) Vancomycin Last Dose Date 11/09/17 Vancomycin Last Dose Time 2100 Test 11/10/17 11:39 11/10/17 16:49 11/10/17 20:46 11/11/17 07:25 Glucose (Fingerstick) 144 mg/dL (70-99) 132 mg/dL (70-99) 125 mg/dL (70-99) 123 mg/dL (70-99) Test 11/11/17 08:40 White Blood Count 12.2 x10^3/uL (4.0-11.0) Red Blood Count 3.74 x10^6/uL (3.50-5.40) Hemoglobin 10.4 g/dL (12.0-15.5) Hematocrit 32.0 % (36.0-47.0) Mean Corpuscular Volume 86 fL (79-100) Mean Corpuscular Hemoglobin 28 pg (25-35) Mean Corpuscular Hemoglobin Concent 33 g/dL (31-37) Red Cell Distribution Width 14.0 % (11.5-14.5) Platelet Count 329 x10^3/uL (140-400) Neutrophils (%) (Auto) 79 % (31-73) Lymphocytes (%) (Auto) 7 % (24-48) Monocytes (%) (Auto) 9 % (0-9) Eosinophils (%) (Auto) 4 % (0-3) Basophils (%) (Auto) 1 % (0-3) Neutrophils # (Auto) 9.6 x10^3uL (1.8-7.7) Lymphocytes # (Auto) 0.9 x10^3/uL (1.0-4.8) Monocytes # (Auto) 1.1 x10^3/uL (0.0-1.1) Eosinophils # (Auto) 0.5 x10^3/uL (0.0-0.7) Basophils # (Auto) 0.1 x10^3/uL (0.0-0.2) Sodium Level 148 mmol/L (136-145) Potassium Level 3.9 mmol/L (3.5-5.1) Chloride Level 114 mmol/L (98-107) Carbon Dioxide Level 23 mmol/L (21-32) Anion Gap 11 (6-14) Blood Urea Nitrogen 27 mg/dL (7-20) Creatinine 2.4 mg/dL (0.6-1.0) Estimated GFR (Cockcroft-Gault) 20.2 Glucose Level 138 mg/dL (70-99) Calcium Level 7.9 mg/dL (8.5-10.1) Random Vancomycin Level 15.9 mcg/mL Laboratory Tests Test 11/10/17 11:39 11/10/17 16:49 11/10/17 20:46 11/11/17 07:25 Glucose (Fingerstick) 144 mg/dL (70-99) 132 mg/dL (70-99) 125 mg/dL (70-99) 123 mg/dL (70-99) Test 11/11/17 08:40 White Blood Count 12.2 x10^3/uL (4.0-11.0) Red Blood Count 3.74 x10^6/uL (3.50-5.40) Hemoglobin 10.4 g/dL (12.0-15.5) Hematocrit 32.0 % (36.0-47.0) Mean Corpuscular Volume 86 fL (79-100) Mean Corpuscular Hemoglobin 28 pg (25-35) Mean Corpuscular Hemoglobin Concent 33 g/dL (31-37) Red Cell Distribution Width 14.0 % (11.5-14.5) Platelet Count 329 x10^3/uL (140-400) Neutrophils (%) (Auto) 79 % (31-73) Lymphocytes (%) (Auto) 7 % (24-48) Monocytes (%) (Auto) 9 % (0-9) Eosinophils (%) (Auto) 4 % (0-3) Basophils (%) (Auto) 1 % (0-3) Neutrophils # (Auto) 9.6 x10^3uL (1.8-7.7) Lymphocytes # (Auto) 0.9 x10^3/uL (1.0-4.8) Monocytes # (Auto) 1.1 x10^3/uL (0.0-1.1) Eosinophils # (Auto) 0.5 x10^3/uL (0.0-0.7) Basophils # (Auto) 0.1 x10^3/uL (0.0-0.2) Sodium Level 148 mmol/L (136-145) Potassium Level 3.9 mmol/L (3.5-5.1) Chloride Level 114 mmol/L (98-107) Carbon Dioxide Level 23 mmol/L (21-32) Anion Gap 11 (6-14) Blood Urea Nitrogen 27 mg/dL (7-20) Creatinine 2.4 mg/dL (0.6-1.0) Estimated GFR (Cockcroft-Gault) 20.2 Glucose Level 138 mg/dL (70-99) Calcium Level 7.9 mg/dL (8.5-10.1) Random Vancomycin Level 15.9 mcg/mL Assessment/Plan Assessment/Plan IMP GOLDY DUE TO CONTRAST-CR OF 2.6-NO CKD NOTED ABD WALL INFECTION HYPERNATREMIA LEUCOCYTOSIS COPD OBESITY PLAN UA NEG FOR NEPHRITIS ANTIBIOTICS IVF'S TO RESUME LABS IN AM ERICA KLINE MD Nov 11, 2017 11:32
[2017-11-11] MEDS: LINEZOLID 600 MG TABLET PO SCH ×2 (11:52→21:56)
[2017-11-11 15:00] VITALS: BP 133/52
[2017-11-11 19:00] VITALS: BP 145/59
[2017-11-11] MEDS: AMITRIPTYLINE HCL 10 MG TABLET. PO SCH (21:56)
[2017-11-11 23:00] VITALS: BP 148/53
[2017-11-12 03:00] VITALS: BP 156/58
[2017-11-12 05:32] LABS: BASO # 0.1 x10^3/uL (0.0-0.2); BASO % 1 % (0-3); EOS # 0.4 x10^3/uL (0.0-0.7); EOS % 5 % (0-3); HEMOGLOBIN 10.3 g/dL (12.0-15.5); LYMPH % 11 % (24-48); MEAN CORPUSCULAR HEMOGLOBIN 28 pg (25-35); MEAN CORPUSCULAR HGB CONC 33 g/dL (31-37); MEAN CORPUSCULAR VOLUME 85 fL (79-100); MONO # 1.2 x10^3/uL (0.0-1.1); MONO % 13 % (0-9); NEUT % 72 % (31-73); PLATELET COUNT 354 x10^3/uL (140-400); RED BLOOD COUNT 3.65 x10^6/uL (3.50-5.40); RED CELL DISTRIBUTION WIDTH 14.1 % (11.5-14.5); WHITE BLOOD COUNT 9.7 x10^3/uL (4.0-11.0)
[2017-11-12 05:44] LABS: CALCIUM 8.8 mg/dL (8.5-10.1); CREATININE 2.2 mg/dL (0.6-1.0); GFR 22.3; POTASSIUM 3.5 mmol/L (3.5-5.1)
[2017-11-12 07:00] VITALS: BP 151/69
[2017-11-12] MEDS: IPRATRPIUM/ALBUTEROL 0.5/2.5MG 3 ML NEBU. NEB SCH ×4 (07:22→19:37)
[2017-11-12] MEDS: CALCIUM CARBONATE 500 MG TABLET PO SCH (09:23)
[2017-11-12] MEDS: LINEZOLID 600 MG TABLET PO SCH ×2 (09:24→21:07)
[2017-11-12] MEDS: HYDROcodone/APAP 5/325MG 1 TAB TABLET PO PRN ×3 (09:24→21:08)
[2017-11-12] MEDS: LACTOBACILLUS RHAMNOSUS GG 1 CAPSULE. PO SCH ×2 (09:24→21:07)
[2017-11-12] MEDS: MULTIVITAMIN with MINERAL TABLET. PO SCH (09:24)
--- NOTE | 2017-11-12 10:18 | PDOC ---
Infectious Disease Note Subjective Subjective Feeling alright Pain controlled Urinating ok No fever last 24 hours No N/V/D ROS ROS Per HPI otherwise ROS negative Vital Sign Vital Signs Vital Signs Date Time Temp Pulse Resp B/P (MAP) Pulse Ox O2 Delivery O2 Flow Rate FiO2 11/12/17 09:24 Room Air 11/12/17 07:24 96 11/12/17 07:00 98.4 81 24 151/69 (96) 98.4 11/11/17 09:33 2.0 Physical Exam PHYSICAL EXAM General: Lying down, tired appearance HENT: Oral cavity clear, edentulous. LUNGS: CTAB Heart: S1 and S2 normal Abdomen: Distended, + striae, BS present, soft, mildly tender, XAVIER drain intact. Abd wound dressing dry. Extremities: No gross edema or cyanosis Skin: warm and dry. No rash SHIPPING LEAD: Alert, responds appropriately Labs Lab Laboratory Tests Test 11/11/17 12:09 11/11/17 16:53 11/11/17 20:45 11/12/17 05:00 Glucose (Fingerstick) 129 mg/dL (70-99) 151 mg/dL (70-99) 122 mg/dL (70-99) White Blood Count 9.7 x10^3/uL (4.0-11.0) Red Blood Count 3.65 x10^6/uL (3.50-5.40) Hemoglobin 10.3 g/dL (12.0-15.5) Hematocrit 31.0 % (36.0-47.0) Mean Corpuscular Volume 85 fL (79-100) Mean Corpuscular Hemoglobin 28 pg (25-35) Mean Corpuscular Hemoglobin Concent 33 g/dL (31-37) Red Cell Distribution Width 14.1 % (11.5-14.5) Platelet Count 354 x10^3/uL (140-400) Neutrophils (%) (Auto) 72 % (31-73) Lymphocytes (%) (Auto) 11 % (24-48) Monocytes (%) (Auto) 13 % (0-9) Eosinophils (%) (Auto) 5 % (0-3) Basophils (%) (Auto) 1 % (0-3) Neutrophils # (Auto) 7.0 x10^3uL (1.8-7.7) Lymphocytes # (Auto) 1.0 x10^3/uL (1.0-4.8) Monocytes # (Auto) 1.2 x10^3/uL (0.0-1.1) Eosinophils # (Auto) 0.4 x10^3/uL (0.0-0.7) Basophils # (Auto) 0.1 x10^3/uL (0.0-0.2) Sodium Level 147 mmol/L (136-145) Potassium Level 3.5 mmol/L (3.5-5.1) Chloride Level 115 mmol/L (98-107) Carbon Dioxide Level 23 mmol/L (21-32) Anion Gap 9 (6-14) Blood Urea Nitrogen 21 mg/dL (7-20) Creatinine 2.2 mg/dL (0.6-1.0) Estimated GFR (Cockcroft-Gault) 22.3 Glucose Level 128 mg/dL (70-99) Calcium Level 8.8 mg/dL (8.5-10.1) Test 11/12/17 07:17 Glucose (Fingerstick) 139 mg/dL (70-99) Micro 11/08/17 Blood Culture - Preliminary, Resulted NO GROWTH AFTER 3 DAYS Abdominal drainage, 11/08 AEROBIC RES 1 Final Methicillin - resistant Staphylococcus aureus MICS are expressed in micrograms per mL Antibiotic RSLT#1 Ciprofloxacin S<=0.5 Clindamycin S<=0.25 Erythromycin S<=0.25 Gentamicin S<=0.5 Levofloxacin S =0.25 Linezolid S =2 Oxacillin R =R Penicillin R>=0.5 Rifampin S<=0.5 Tetracycline S<=1 Trimethoprim/Sulfa S<=10 Vancomycin S =1 Objective Assessment Abdominal wall fluid collection, s/p XAVIER drain placement on 11/08. MRSA History of hernia repair with phasix mesh placement, September 2017. Leukocytosis - improved GOLDY History of previous exploratory laparotomy for small bowel resection, removal of mesh, ventral incisional hernia repair and debridement of abdominal wall, 08/10/2016. Diabetes. Subdural hematoma. Tobaccoism. Status post hysterectomy. Mild cognitive impairment, status post subdural hematoma at baseline per at bedside. Plan Plan of Care Zyvox and empiric IV Zosyn, renal dosing -Previously on Vanc, Diflucan Due to presence of mesh, and MRSA, antibiotics alone may not be optimal Nephrology following for GOLDY Hold dc home as planned D/w RN Pt seen and examined. Chart reviewed in detail. Case discussed with BUSINESS OFFICE REPRESENTATIVE. Agree with above plan MIA VILA APRN Nov 12, 2017 10:18 MARCIA DEL CID MD Nov 12, 2017 21:33
[2017-11-12 11:14] VITALS: BP 156/45
--- NOTE | 2017-11-12 11:25 | PDOC ---
PROGRESS NOTES Subjective Subjective redness abd wall and edema Objective Objective Vital Signs Date Time Temp Pulse Resp B/P (MAP) Pulse Ox O2 Delivery O2 Flow Rate FiO2 11/12/17 11:14 97.8 68 18 156/45 (82) 93 Room Air 97.8 11/11/17 09:33 2.0 Intake and Output 11/12/17 07:00 Intake Total 120 ml Output Total 120 ml Balance 0 ml Intake Oral 120 ml Output Drainage Total 120 ml # Voids 4 Physical Exam Abdomen: Normal bowel sounds, Soft, Other (redness and swelling abd wall) Heart: Regular rate, Normal S1, Normal S2 Extremities: No cyanosis General: Alert, No acute distress HEENT: PERRLA, EOMI, Mucous membr. moist/pink Lungs: Clear to auscultation MUSCULOSKELETAL: No deformity, No swelling Neuro: Normal speech, Cranial nerves 3-12 NL Psych/Mental Status: Mental status NL, Mood NL Skin: No rashes, No breakdown COMMENT drain abd wall Diagnosis Problem List Problems Medical Problems: (1) Abdominal wall fluid collections Status: Acute Assessment Assessment Problems Medical Problems: (1) Abdominal wall fluid collections Status: Acute FINAL IMPRESSION: Abdominal wall abscess/ cellulitis. 1. Infected abdominal mesh. The patient had hernia repair done a couple of months ago. 2. Recurrent ventral hernia. 3. History of subdural hematoma with late sequelae. 4. Chronic obstructive pulmonary disease. 5. Smoking history. 6. Accelerated hypertension. PLAN: fevers down wbc 9 down with antibiotics, Vanco+zosyn+diflucan Cr 2.2 due to ATN from sepsis.cr downward trend low pot 2.9 replaced , 4.0 now Ir placed drainage 11/09. Picc line? home iv antibiotics will discuss with ID spoke with Dr.Lowrey vásquez MRSA on c/s from abd wall Plan Plan of Care Problems Medical Problems: (1) Abdominal wall fluid collections Status: Acute Comment Review of Relevant I have reviewed the following items ranulfo (where applicable) has been applied. Labs Laboratory Tests Test 11/11/17 12:09 11/11/17 16:53 11/11/17 20:45 11/12/17 05:00 Glucose (Fingerstick) 129 mg/dL (70-99) 151 mg/dL (70-99) 122 mg/dL (70-99) White Blood Count 9.7 x10^3/uL (4.0-11.0) Red Blood Count 3.65 x10^6/uL (3.50-5.40) Hemoglobin 10.3 g/dL (12.0-15.5) Hematocrit 31.0 % (36.0-47.0) Mean Corpuscular Volume 85 fL (79-100) Mean Corpuscular Hemoglobin 28 pg (25-35) Mean Corpuscular Hemoglobin Concent 33 g/dL (31-37) Red Cell Distribution Width 14.1 % (11.5-14.5) Platelet Count 354 x10^3/uL (140-400) Neutrophils (%) (Auto) 72 % (31-73) Lymphocytes (%) (Auto) 11 % (24-48) Monocytes (%) (Auto) 13 % (0-9) Eosinophils (%) (Auto) 5 % (0-3) Basophils (%) (Auto) 1 % (0-3) Neutrophils # (Auto) 7.0 x10^3uL (1.8-7.7) Lymphocytes # (Auto) 1.0 x10^3/uL (1.0-4.8) Monocytes # (Auto) 1.2 x10^3/uL (0.0-1.1) Eosinophils # (Auto) 0.4 x10^3/uL (0.0-0.7) Basophils # (Auto) 0.1 x10^3/uL (0.0-0.2) Sodium Level 147 mmol/L (136-145) Potassium Level 3.5 mmol/L (3.5-5.1) Chloride Level 115 mmol/L (98-107) Carbon Dioxide Level 23 mmol/L (21-32) Anion Gap 9 (6-14) Blood Urea Nitrogen 21 mg/dL (7-20) Creatinine 2.2 mg/dL (0.6-1.0) Estimated GFR (Cockcroft-Gault) 22.3 Glucose Level 128 mg/dL (70-99) Calcium Level 8.8 mg/dL (8.5-10.1) Test 11/12/17 07:17 Glucose (Fingerstick) 139 mg/dL (70-99) Microbiology 11/08/17 Blood Culture - Preliminary, Resulted NO GROWTH AFTER 3 DAYS 11/09/17 Anaerobic/Aerobic Culture - Preliminary, Resulted 11/09/17 Anaerobic Culture Result 1 (JLUIS) - Preliminary, Resulted 11/09/17 Aerobic Culture - Preliminary, Resulted 11/09/17 Aerobic Culture Result 1 (JLUIS) - Preliminary, Resulted 11/09/17 Gram Stain - Final, Resulted 11/09/17 Gram Stain Result 1 (JLUIS) - Final, Resulted 11/09/17 Gram Stain Result 2 (JLUIS) - Final, Resulted 11/08/17 Urine Culture - Final, Complete 11/08/17 Urine Culture Result 1 (JLUIS) - Final, Complete 11/08/17 Aerobic Culture - Final, Complete 11/08/17 Aerobic Culture Result 1 (JLUIS) - Final, Complete 11/08/17 Antimicrobic Susceptibility - Final, Complete 11/08/17 Gram Stain - Final, Complete 11/08/17 Gram Stain Result 1 (JLUIS) - Final, Complete 11/08/17 Gram Stain Result 2 (JLUIS) - Final, Complete Vitals/I & O Vital Sign - Last 24 Hours 11/11/17 11/11/17 11/11/17 11/11/17 12:53 15:00 16:18 19:00 Temp 98.1 98.3 98.1 98.3 Pulse 89 89 Resp 16 16 B/P (MAP) 133/52 (79) 145/59 (87) Pulse Ox 97 92 98 92 O2 Delivery Room Air Room Air Room Air Room Air 11/11/17 11/11/17 11/11/17 11/11/17 20:00 20:04 21:00 23:00 Temp 98.0 98.0 Pulse 82 Resp 18 16 B/P (MAP) 148/53 (84) Pulse Ox 94 92 O2 Delivery Room Air Room Air Room Air Room Air 11/12/17 11/12/17 11/12/17 11/12/17 03:00 07:00 07:24 09:24 Temp 98.4 98.4 98.4 98.4 Pulse 86 81 Resp 16 24 B/P (MAP) 156/58 (90) 151/69 (96) Pulse Ox 95 93 96 O2 Delivery Room Air Room Air Room Air Room Air 11/12/17 11:14 Temp 97.8 97.8 Pulse 68 Resp 18 B/P (MAP) 156/45 (82) Pulse Ox 93 O2 Delivery Room Air Intake and Output 11/11/17 11/11/1711/12/18 15:00 23:00 07:00 Intake Total 120 ml Output Total 70 ml 50 ml Balance 50 ml -50 ml CHRISTOPH LE MD Nov 12, 2017 11:24
--- NOTE | 2017-11-12 11:47 | PDOC ---
SURGICAL PROGRESS NOTE Subjective Pt without new c/o Vital Signs Vital Signs Date Time Temp Pulse Resp B/P (MAP) Pulse Ox O2 Delivery O2 Flow Rate FiO2 11/12/17 11:14 97.8 68 18 156/45 (82) 93 Room Air 97.8 11/11/17 09:33 2.0 I&O Intake and Output 11/12/17 07:00 Intake Total 120 ml Output Total 120 ml Balance 0 ml Intake Oral 120 ml Output Drainage Total 120 ml # Voids 4 General: Alert, Oriented X3, Cooperative, No acute distress Abdomen: Soft, Other (mild TTP with induration, drain with greenish tint) Labs Laboratory Tests Test 11/10/17 16:49 11/10/17 20:46 11/11/17 07:25 11/11/17 08:40 Glucose (Fingerstick) 132 mg/dL (70-99) 125 mg/dL (70-99) 123 mg/dL (70-99) White Blood Count 12.2 x10^3/uL (4.0-11.0) Red Blood Count 3.74 x10^6/uL (3.50-5.40) Hemoglobin 10.4 g/dL (12.0-15.5) Hematocrit 32.0 % (36.0-47.0) Mean Corpuscular Volume 86 fL (79-100) Mean Corpuscular Hemoglobin 28 pg (25-35) Mean Corpuscular Hemoglobin Concent 33 g/dL (31-37) Red Cell Distribution Width 14.0 % (11.5-14.5) Platelet Count 329 x10^3/uL (140-400) Neutrophils (%) (Auto) 79 % (31-73) Lymphocytes (%) (Auto) 7 % (24-48) Monocytes (%) (Auto) 9 % (0-9) Eosinophils (%) (Auto) 4 % (0-3) Basophils (%) (Auto) 1 % (0-3) Neutrophils # (Auto) 9.6 x10^3uL (1.8-7.7) Lymphocytes # (Auto) 0.9 x10^3/uL (1.0-4.8) Monocytes # (Auto) 1.1 x10^3/uL (0.0-1.1) Eosinophils # (Auto) 0.5 x10^3/uL (0.0-0.7) Basophils # (Auto) 0.1 x10^3/uL (0.0-0.2) Sodium Level 148 mmol/L (136-145) Potassium Level 3.9 mmol/L (3.5-5.1) Chloride Level 114 mmol/L (98-107) Carbon Dioxide Level 23 mmol/L (21-32) Anion Gap 11 (6-14) Blood Urea Nitrogen 27 mg/dL (7-20) Creatinine 2.4 mg/dL (0.6-1.0) Estimated GFR (Cockcroft-Gault) 20.2 Glucose Level 138 mg/dL (70-99) Calcium Level 7.9 mg/dL (8.5-10.1) Random Vancomycin Level 15.9 mcg/mL Test 11/11/17 12:09 11/11/17 16:53 11/11/17 20:45 11/12/17 05:00 Glucose (Fingerstick) 129 mg/dL (70-99) 151 mg/dL (70-99) 122 mg/dL (70-99) White Blood Count 9.7 x10^3/uL (4.0-11.0) Red Blood Count 3.65 x10^6/uL (3.50-5.40) Hemoglobin 10.3 g/dL (12.0-15.5) Hematocrit 31.0 % (36.0-47.0) Mean Corpuscular Volume 85 fL (79-100) Mean Corpuscular Hemoglobin 28 pg (25-35) Mean Corpuscular Hemoglobin Concent 33 g/dL (31-37) Red Cell Distribution Width 14.1 % (11.5-14.5) Platelet Count 354 x10^3/uL (140-400) Neutrophils (%) (Auto) 72 % (31-73) Lymphocytes (%) (Auto) 11 % (24-48) Monocytes (%) (Auto) 13 % (0-9) Eosinophils (%) (Auto) 5 % (0-3) Basophils (%) (Auto) 1 % (0-3) Neutrophils # (Auto) 7.0 x10^3uL (1.8-7.7) Lymphocytes # (Auto) 1.0 x10^3/uL (1.0-4.8) Monocytes # (Auto) 1.2 x10^3/uL (0.0-1.1) Eosinophils # (Auto) 0.4 x10^3/uL (0.0-0.7) Basophils # (Auto) 0.1 x10^3/uL (0.0-0.2) Sodium Level 147 mmol/L (136-145) Potassium Level 3.5 mmol/L (3.5-5.1) Chloride Level 115 mmol/L (98-107) Carbon Dioxide Level 23 mmol/L (21-32) Anion Gap 9 (6-14) Blood Urea Nitrogen 21 mg/dL (7-20) Creatinine 2.2 mg/dL (0.6-1.0) Estimated GFR (Cockcroft-Gault) 22.3 Glucose Level 128 mg/dL (70-99) Calcium Level 8.8 mg/dL (8.5-10.1) Test 11/12/17 07:17 Glucose (Fingerstick) 139 mg/dL (70-99) Laboratory Tests Test 11/11/17 12:09 11/11/17 16:53 11/11/17 20:45 11/12/17 05:00 Glucose (Fingerstick) 129 mg/dL (70-99) 151 mg/dL (70-99) 122 mg/dL (70-99) White Blood Count 9.7 x10^3/uL (4.0-11.0) Red Blood Count 3.65 x10^6/uL (3.50-5.40) Hemoglobin 10.3 g/dL (12.0-15.5) Hematocrit 31.0 % (36.0-47.0) Mean Corpuscular Volume 85 fL (79-100) Mean Corpuscular Hemoglobin 28 pg (25-35) Mean Corpuscular Hemoglobin Concent 33 g/dL (31-37) Red Cell Distribution Width 14.1 % (11.5-14.5) Platelet Count 354 x10^3/uL (140-400) Neutrophils (%) (Auto) 72 % (31-73) Lymphocytes (%) (Auto) 11 % (24-48) Monocytes (%) (Auto) 13 % (0-9) Eosinophils (%) (Auto) 5 % (0-3) Basophils (%) (Auto) 1 % (0-3) Neutrophils # (Auto) 7.0 x10^3uL (1.8-7.7) Lymphocytes # (Auto) 1.0 x10^3/uL (1.0-4.8) Monocytes # (Auto) 1.2 x10^3/uL (0.0-1.1) Eosinophils # (Auto) 0.4 x10^3/uL (0.0-0.7) Basophils # (Auto) 0.1 x10^3/uL (0.0-0.2) Sodium Level 147 mmol/L (136-145) Potassium Level 3.5 mmol/L (3.5-5.1) Chloride Level 115 mmol/L (98-107) Carbon Dioxide Level 23 mmol/L (21-32) Anion Gap 9 (6-14) Blood Urea Nitrogen 21 mg/dL (7-20) Creatinine 2.2 mg/dL (0.6-1.0) Estimated GFR (Cockcroft-Gault) 22.3 Glucose Level 128 mg/dL (70-99) Calcium Level 8.8 mg/dL (8.5-10.1) Test 11/12/17 07:17 Glucose (Fingerstick) 139 mg/dL (70-99) Problem List Problems Medical Problems: (1) Abdominal wall fluid collections Status: Acute Assessment/Plan infected abdominal wall seroma agree with continued drain and abx. pt's mesh is dissolvable (approximately one year after placement) and should need to be surgically removed d/w ID and primary DANYA EPSTEIN MD Nov 12, 2017 11:47
[2017-11-12 15:00] VITALS: BP 153/64
[2017-11-12] MEDS: IBUPROFEN 600 MG TABLET. PO PRN ×2 (15:30→21:07)
[2017-11-12 19:00] VITALS: BP 131/63
[2017-11-12] MEDS: AMITRIPTYLINE HCL 10 MG TABLET. PO SCH (21:07)
[2017-11-12 23:00] VITALS: BP 138/66
[2017-11-13 03:00] VITALS: BP 136/58
[2017-11-13 07:00] VITALS: BP 171/56
[2017-11-13] MEDS: IPRATRPIUM/ALBUTEROL 0.5/2.5MG 3 ML NEBU. NEB SCH ×4 (07:03→19:23)
--- NOTE | 2017-11-13 08:48 | PDOC ---
Infectious Disease Note Subjective Subjective c/o abdominal pain and diarrhea Appetite better No fevers/chills ROS ROS per HPI otherwise neg Vital Sign Vital Signs Vital Signs Date Time Temp Pulse Resp B/P (MAP) Pulse Ox O2 Delivery O2 Flow Rate FiO2 11/13/17 07:04 100 Room Air 11/13/17 07:00 96.0 82 18 171/56 (94) 96.0 Physical Exam PHYSICAL EXAM General: Sitting on the side of the bed, eating sausage and eggs HENT: edentulous. LUNGS: CTAB Heart: S1 and S2 normal Abdomen: Distended, + striae, BS present, soft, mildly tender, XAVIER drain intact. Abd wound dressing dry. Extremities: No gross edema or cyanosis Skin: warm and dry. No rash CARE PARTNER: Alert, responds appropriately Labs Lab Laboratory Tests Test 11/12/17 11:53 11/12/17 17:03 11/12/17 20:54 Glucose (Fingerstick) 116 mg/dL (70-99) 141 mg/dL (70-99) 149 mg/dL (70-99) Micro 11/08/17 Blood Culture - Preliminary, Resulted NO GROWTH AFTER 3 DAYS Abdominal drainage, 11/08 AEROBIC RES 1 Final Methicillin - resistant Staphylococcus aureus MICS are expressed in micrograms per mL Antibiotic RSLT#1 Ciprofloxacin S<=0.5 Clindamycin S<=0.25 Erythromycin S<=0.25 Gentamicin S<=0.5 Levofloxacin S =0.25 Linezolid S =2 Oxacillin R =R Penicillin R>=0.5 Rifampin S<=0.5 Tetracycline S<=1 Trimethoprim/Sulfa S<=10 Vancomycin S =1 Objective Assessment Abdominal wall fluid collection, 11/08. MRSA s/p XAVIER drain placement on 11/09. MSSA History of hernia repair with phasix mesh placement, September 2017. Leukocytosis - improved GOLDY History of previous exploratory laparotomy for small bowel resection, removal of mesh, ventral incisional hernia repair and debridement of abdominal wall, 08/10/2016. Diabetes. Subdural hematoma. Tobaccoism. Status post hysterectomy. Mild cognitive impairment, status post subdural hematoma at baseline per at bedside. Diarrhea, c. diff neg 11/09 Plan Plan of Care Zyvox -Previously on Vanc, Zosyn, Diflucan Due to presence of mesh, and MRSA, antibiotics alone may not be optimal Nephrology following for GOLDY Supportive care D/w Pt seen and examined. Chart reviewed in detail. Case discussed with HEMATOLOGY NURSE. Agree with above plan. MIA VILA APRN Nov 13, 2017 08:48 MARCIA DEL CID MD Nov 13, 2017 19:34
[2017-11-13] MEDS: CALCIUM CARBONATE 500 MG TABLET PO SCH (09:05)
[2017-11-13] MEDS: HYDROcodone/APAP 5/325MG 1 TAB TABLET PO PRN ×2 (09:06→21:08)
[2017-11-13] MEDS: LACTOBACILLUS RHAMNOSUS GG 1 CAPSULE. PO SCH ×2 (09:06→21:07)
[2017-11-13] MEDS: MULTIVITAMIN with MINERAL TABLET. PO SCH (09:06)
[2017-11-13] MEDS: LINEZOLID 600 MG TABLET PO SCH ×2 (09:06→21:07)
[2017-11-13] MEDS: IBUPROFEN 600 MG TABLET. PO PRN ×2 (09:06→21:07)
[2017-11-13 09:30] LABS: BASO # 0.1 x10^3/uL (0.0-0.2); BASO % 1 % (0-3); EOS # 0.3 x10^3/uL (0.0-0.7); EOS % 4 % (0-3); HEMATOCRIT 30.9 % (36.0-47.0); HEMOGLOBIN 10.2 g/dL (12.0-15.5); LYMPH # 0.8 x10^3/uL (1.0-4.8); LYMPH % 9 % (24-48); MEAN CORPUSCULAR HEMOGLOBIN 28 pg (25-35); MEAN CORPUSCULAR HGB CONC 33 g/dL (31-37); MEAN CORPUSCULAR VOLUME 86 fL (79-100); MONO # 0.9 x10^3/uL (0.0-1.1); MONO % 10 % (0-9); NEUT % 76 % (31-73); PLATELET COUNT 367 x10^3/uL (140-400); RED BLOOD COUNT 3.62 x10^6/uL (3.50-5.40); WHITE BLOOD COUNT 9.2 x10^3/uL (4.0-11.0)
[2017-11-13 09:33] LABS: CALCIUM 8.6 mg/dL (8.5-10.1); CREATININE 2.3 mg/dL (0.6-1.0); GFR 21.2; POTASSIUM 3.5 mmol/L (3.5-5.1)
--- NOTE | 2017-11-13 09:44 | PDOC ---
SURGICAL PROGRESS NOTE Subjective Pt without c/o, when asked about her stomach, she reports it is homesick. Vital Signs Vital Signs Date Time Temp Pulse Resp B/P (MAP) Pulse Ox O2 Delivery O2 Flow Rate FiO2 11/13/17 09:06 Room Air 11/13/17 07:04 100 11/13/17 07:00 96.0 82 18 171/56 (94) 96.0 I&O Intake and Output 11/13/17 07:00 Intake Total 820 ml Output Total 75 ml Balance 745 ml Intake Oral 820 ml Output Drainage Total 75 ml # Voids 5 General: Alert, Oriented X3, Cooperative, No acute distress Abdomen: Soft, No tenderness Labs Laboratory Tests Test 11/11/17 12:09 11/11/17 16:53 11/11/17 20:45 11/12/17 05:00 Glucose (Fingerstick) 129 mg/dL (70-99) 151 mg/dL (70-99) 122 mg/dL (70-99) White Blood Count 9.7 x10^3/uL (4.0-11.0) Red Blood Count 3.65 x10^6/uL (3.50-5.40) Hemoglobin 10.3 g/dL (12.0-15.5) Hematocrit 31.0 % (36.0-47.0) Mean Corpuscular Volume 85 fL (79-100) Mean Corpuscular Hemoglobin 28 pg (25-35) Mean Corpuscular Hemoglobin Concent 33 g/dL (31-37) Red Cell Distribution Width 14.1 % (11.5-14.5) Platelet Count 354 x10^3/uL (140-400) Neutrophils (%) (Auto) 72 % (31-73) Lymphocytes (%) (Auto) 11 % (24-48) Monocytes (%) (Auto) 13 % (0-9) Eosinophils (%) (Auto) 5 % (0-3) Basophils (%) (Auto) 1 % (0-3) Neutrophils # (Auto) 7.0 x10^3uL (1.8-7.7) Lymphocytes # (Auto) 1.0 x10^3/uL (1.0-4.8) Monocytes # (Auto) 1.2 x10^3/uL (0.0-1.1) Eosinophils # (Auto) 0.4 x10^3/uL (0.0-0.7) Basophils # (Auto) 0.1 x10^3/uL (0.0-0.2) Sodium Level 147 mmol/L (136-145) Potassium Level 3.5 mmol/L (3.5-5.1) Chloride Level 115 mmol/L (98-107) Carbon Dioxide Level 23 mmol/L (21-32) Anion Gap 9 (6-14) Blood Urea Nitrogen 21 mg/dL (7-20) Creatinine 2.2 mg/dL (0.6-1.0) Estimated GFR (Cockcroft-Gault) 22.3 Glucose Level 128 mg/dL (70-99) Calcium Level 8.8 mg/dL (8.5-10.1) Test 11/12/17 07:17 11/12/17 11:53 11/12/17 17:03 11/12/17 20:54 Glucose (Fingerstick) 139 mg/dL (70-99) 116 mg/dL (70-99) 141 mg/dL (70-99) 149 mg/dL (70-99) Test 11/13/17 09:10 Sodium Level 148 mmol/L (136-145) Potassium Level 3.5 mmol/L (3.5-5.1) Chloride Level 113 mmol/L (98-107) Carbon Dioxide Level 25 mmol/L (21-32) Anion Gap 10 (6-14) Blood Urea Nitrogen 20 mg/dL (7-20) Creatinine 2.3 mg/dL (0.6-1.0) Estimated GFR (Cockcroft-Gault) 21.2 Glucose Level 214 mg/dL (70-99) Calcium Level 8.6 mg/dL (8.5-10.1) Laboratory Tests Test 11/12/17 11:53 11/12/17 17:03 11/12/17 20:54 11/13/17 09:10 Glucose (Fingerstick) 116 mg/dL (70-99) 141 mg/dL (70-99) 149 mg/dL (70-99) Sodium Level 148 mmol/L (136-145) Potassium Level 3.5 mmol/L (3.5-5.1) Chloride Level 113 mmol/L (98-107) Carbon Dioxide Level 25 mmol/L (21-32) Anion Gap 10 (6-14) Blood Urea Nitrogen 20 mg/dL (7-20) Creatinine 2.3 mg/dL (0.6-1.0) Estimated GFR (Cockcroft-Gault) 21.2 Glucose Level 214 mg/dL (70-99) Calcium Level 8.6 mg/dL (8.5-10.1) Problem List Problems Medical Problems: (1) Abdominal wall fluid collections Status: Acute Assessment/Plan abd wall abscess agree with drain and abx hopefully work towards d/c defer elevated cr to nephrology DANYA EPSTEIN MD Nov 13, 2017 09:44
[2017-11-13 11:00] VITALS: BP 156/69
--- NOTE | 2017-11-13 11:27 | PDOC ---
PROGRESS NOTES Subjective Subjective pt feels better ,anxious to go home Objective Objective Vital Signs Date Time Temp Pulse Resp B/P (MAP) Pulse Ox O2 Delivery O2 Flow Rate FiO2 11/13/17 11:14 100 Room Air 11/13/17 07:00 96.0 82 18 171/56 (94) 96.0 Intake and Output 11/13/17 07:00 Intake Total 820 ml Output Total 75 ml Balance 745 ml Intake Oral 820 ml Output Drainage Total 75 ml # Voids 5 Physical Exam Abdomen: Soft, No tenderness Heart: Regular rate, Normal S1, Normal S2 Extremities: No cyanosis General: Alert, Oriented X3, Cooperative, No acute distress HEENT: PERRLA, EOMI, Mucous membr. moist/pink Lungs: Clear to auscultation MUSCULOSKELETAL: No deformity, No swelling Neuro: Normal speech, Cranial nerves 3-12 NL Psych/Mental Status: Mental status NL, Mood NL Skin: No rashes, No breakdown COMMENT drain abd wall Diagnosis Problem List Problems Medical Problems: (1) Abdominal wall fluid collections Status: Acute Assessment Assessment Problems Medical Problems: (1) Abdominal wall fluid collections Status: Acute FINAL IMPRESSION: Abdominal wall abscess/ cellulitis. 1. Infected abdominal mesh. The patient had hernia repair done a couple of months ago. 2. Recurrent ventral hernia. 3. History of subdural hematoma with late sequelae. 4. Chronic obstructive pulmonary disease. 5. Smoking history. 6. Accelerated hypertension. PLAN: fevers down wbc 9 down with antibiotics, zyvox Cr 2.3 due to ATN from sepsis.cr downward trend low pot 2.9 replaced ,3.5 now Ir placed drainage 11/09. Picc line? home iv antibiotics will discuss with ID spoke with Dr.Lowrey vásquez MRSA on c/s from abd wall. home soon? Plan Plan of Care Problems Medical Problems: (1) Abdominal wall fluid collections Status: Acute Comment Review of Relevant I have reviewed the following items ranulfo (where applicable) has been applied. Labs Laboratory Tests Test 11/12/17 11:53 11/12/17 17:03 11/12/17 20:54 11/13/17 09:10 Glucose (Fingerstick) 116 mg/dL (70-99) 141 mg/dL (70-99) 149 mg/dL (70-99) White Blood Count 9.2 x10^3/uL (4.0-11.0) Red Blood Count 3.62 x10^6/uL (3.50-5.40) Hemoglobin 10.2 g/dL (12.0-15.5) Hematocrit 30.9 % (36.0-47.0) Mean Corpuscular Volume 86 fL (79-100) Mean Corpuscular Hemoglobin 28 pg (25-35) Mean Corpuscular Hemoglobin Concent 33 g/dL (31-37) Red Cell Distribution Width 14.0 % (11.5-14.5) Platelet Count 367 x10^3/uL (140-400) Neutrophils (%) (Auto) 76 % (31-73) Lymphocytes (%) (Auto) 9 % (24-48) Monocytes (%) (Auto) 10 % (0-9) Eosinophils (%) (Auto) 4 % (0-3) Basophils (%) (Auto) 1 % (0-3) Neutrophils # (Auto) 7.0 x10^3uL (1.8-7.7) Lymphocytes # (Auto) 0.8 x10^3/uL (1.0-4.8) Monocytes # (Auto) 0.9 x10^3/uL (0.0-1.1) Eosinophils # (Auto) 0.3 x10^3/uL (0.0-0.7) Basophils # (Auto) 0.1 x10^3/uL (0.0-0.2) Sodium Level 148 mmol/L (136-145) Potassium Level 3.5 mmol/L (3.5-5.1) Chloride Level 113 mmol/L (98-107) Carbon Dioxide Level 25 mmol/L (21-32) Anion Gap 10 (6-14) Blood Urea Nitrogen 20 mg/dL (7-20) Creatinine 2.3 mg/dL (0.6-1.0) Estimated GFR (Cockcroft-Gault) 21.2 Glucose Level 214 mg/dL (70-99) Calcium Level 8.6 mg/dL (8.5-10.1) Microbiology 11/08/17 Blood Culture - Preliminary, Resulted NO GROWTH AFTER 4 DAYS 11/09/17 Anaerobic/Aerobic Culture - Preliminary, Resulted 11/09/17 Anaerobic Culture Result 1 (JLUIS) - Preliminary, Resulted 11/09/17 Aerobic Culture - Final, Resulted 11/09/17 Aerobic Culture Result 1 (JLUIS) - Final, Resulted 11/09/17 Antimicrobic Susceptibility - Final, Resulted 11/09/17 Gram Stain - Final, Resulted 11/09/17 Gram Stain Result 1 (JLUIS) - Final, Resulted 11/09/17 Gram Stain Result 2 (JLUIS) - Final, Resulted 11/08/17 Urine Culture - Final, Complete 11/08/17 Urine Culture Result 1 (JLUIS) - Final, Complete 11/08/17 Aerobic Culture - Final, Complete 11/08/17 Aerobic Culture Result 1 (JLUIS) - Final, Complete 11/08/17 Antimicrobic Susceptibility - Final, Complete 11/08/17 Gram Stain - Final, Complete 11/08/17 Gram Stain Result 1 (JLUIS) - Final, Complete 11/08/17 Gram Stain Result 2 (JLUIS) - Final, Complete Vitals/I & O Vital Sign - Last 24 Hours 11/12/17 11/12/17 11/12/17 11/12/17 12:23 15:00 15:30 15:39 Temp 97.8 97.8 Pulse 80 Resp 18 B/P (MAP) 153/64 (93) Pulse Ox 94 O2 Delivery Room Air Room Air Room Air Room Air 11/12/17 11/12/17 11/12/17 11/12/17 19:00 19:38 20:00 21:08 Temp 98.5 98.5 Pulse 81 Resp 18 20 B/P (MAP) 131/63 (85) Pulse Ox 94 94 O2 Delivery Room Air Room Air Room Air Room Air 11/12/17 11/12/17 11/13/17 11/13/17 22:08 23:00 03:00 07:00 Temp 97.8 97.6 96.0 97.8 97.6 96.0 Pulse 75 84 82 Resp 20 18 18 18 B/P (MAP) 138/66 (90) 136/58 (84) 171/56 (94) Pulse Ox 93 96 92 O2 Delivery Room Air Room Air Room Air Room Air 11/13/17 11/13/17 11/13/17 07:04 09:06 11:14 Pulse Ox 100 100 O2 Delivery Room Air Room Air Room Air Intake and Output 11/12/17 11/12/17 11/13/17 15:00 23:00 07:00 Intake Total 470 ml 250 ml 100 ml Output Total 75 ml Balance 470 ml 175 ml 100 ml CHRISTOPH LE MD Nov 13, 2017 11:27
[2017-11-13 15:00] VITALS: BP 156/69
[2017-11-13 19:15] VITALS: BP 151/60
[2017-11-13] MEDS: AMITRIPTYLINE HCL 10 MG TABLET. PO SCH (21:08)
[2017-11-13 23:08] VITALS: BP 152/69
[2017-11-14] MEDS: ACETAMINOPHEN 325 MG TABLET. PO PRN (01:36)
[2017-11-14 03:02] VITALS: BP 152/68
[2017-11-14] MEDS: IBUPROFEN 600 MG TABLET. PO PRN ×3 (05:00→18:02)
[2017-11-14] MEDS: HYDROcodone/APAP 5/325MG 1 TAB TABLET PO PRN ×3 (05:00→18:02)
[2017-11-14 05:04] LABS: BASO # 0.1 x10^3/uL (0.0-0.2); BASO % 1 % (0-3); EOS # 0.4 x10^3/uL (0.0-0.7); EOS % 4 % (0-3); HEMATOCRIT 30.1 % (36.0-47.0); HEMOGLOBIN 10.1 g/dL (12.0-15.5); LYMPH # 1.4 x10^3/uL (1.0-4.8); LYMPH % 14 % (24-48); MEAN CORPUSCULAR HEMOGLOBIN 29 pg (25-35); MEAN CORPUSCULAR HGB CONC 34 g/dL (31-37); MEAN CORPUSCULAR VOLUME 85 fL (79-100); MONO # 0.8 x10^3/uL (0.0-1.1); MONO % 8 % (0-9); NEUT # 7.1 x10^3uL (1.8-7.7); NEUT % 73 % (31-73); PLATELET COUNT 437 x10^3/uL (140-400); RED BLOOD COUNT 3.54 x10^6/uL (3.50-5.40); RED CELL DISTRIBUTION WIDTH 14.1 % (11.5-14.5); WHITE BLOOD COUNT 9.7 x10^3/uL (4.0-11.0)
[2017-11-14 05:21] LABS: CALCIUM 8.9 mg/dL (8.5-10.1); CREATININE 2.2 mg/dL (0.6-1.0); GFR 22.3; POTASSIUM 3.3 mmol/L (3.5-5.1)
[2017-11-14 07:00] VITALS: BP 155/73
[2017-11-14] MEDS: IPRATRPIUM/ALBUTEROL 0.5/2.5MG 3 ML NEBU. NEB SCH ×4 (07:15→20:06)
[2017-11-14] MEDS: LACTOBACILLUS RHAMNOSUS GG 1 CAPSULE. PO SCH ×2 (08:23→21:24)
[2017-11-14] MEDS: CALCIUM CARBONATE 500 MG TABLET PO SCH (08:23)
[2017-11-14] MEDS: LINEZOLID 600 MG TABLET PO SCH ×2 (08:23→21:24)
[2017-11-14] MEDS: MULTIVITAMIN with MINERAL TABLET. PO SCH (08:23)
--- NOTE | 2017-11-14 09:21 | PDOC ---
Infectious Disease Note Subjective Subjective Doing ok. No F/C/S/N/V/S/SOA Appetite better No fevers/chills ROS ROS o/w neg Vital Sign Vital Signs Vital Signs Date Time Temp Pulse Resp B/P (MAP) Pulse Ox O2 Delivery O2 Flow Rate FiO2 11/14/17 07:45 Room Air 11/14/17 07:16 95 11/14/17 07:00 97.8 78 18 155/73 (100) 97.8 11/13/17 08:25 2.0 Physical Exam PHYSICAL EXAM General: In bed, NAD, coop HENT: edentulous. LUNGS: CTAB Heart: S1 and S2 normal Abdomen: Soft, Obese, + striae, BS present, soft, mildly tender, XAVIER drain intact. Abd wound dressed. 2 cm defect open and clean other scabbed area that is clean Extremities: No gross edema or cyanosis Skin: warm and dry. No rash CHILDREN'S NURSERY ASSISTANT: Alert, responds appropriately Labs Lab Laboratory Tests Test 11/14/17 04:30 White Blood Count 9.7 x10^3/uL (4.0-11.0) Red Blood Count 3.54 x10^6/uL (3.50-5.40) Hemoglobin 10.1 g/dL (12.0-15.5) Hematocrit 30.1 % (36.0-47.0) Mean Corpuscular Volume 85 fL (79-100) Mean Corpuscular Hemoglobin 29 pg (25-35) Mean Corpuscular Hemoglobin Concent 34 g/dL (31-37) Red Cell Distribution Width 14.1 % (11.5-14.5) Platelet Count 437 x10^3/uL (140-400) Neutrophils (%) (Auto) 73 % (31-73) Lymphocytes (%) (Auto) 14 % (24-48) Monocytes (%) (Auto) 8 % (0-9) Eosinophils (%) (Auto) 4 % (0-3) Basophils (%) (Auto) 1 % (0-3) Neutrophils # (Auto) 7.1 x10^3uL (1.8-7.7) Lymphocytes # (Auto) 1.4 x10^3/uL (1.0-4.8) Monocytes # (Auto) 0.8 x10^3/uL (0.0-1.1) Eosinophils # (Auto) 0.4 x10^3/uL (0.0-0.7) Basophils # (Auto) 0.1 x10^3/uL (0.0-0.2) Sodium Level 147 mmol/L (136-145) Potassium Level 3.3 mmol/L (3.5-5.1) Chloride Level 112 mmol/L (98-107) Carbon Dioxide Level 24 mmol/L (21-32) Anion Gap 11 (6-14) Blood Urea Nitrogen 20 mg/dL (7-20) Creatinine 2.2 mg/dL (0.6-1.0) Estimated GFR (Cockcroft-Gault) 22.3 Glucose Level 137 mg/dL (70-99) Calcium Level 8.9 mg/dL (8.5-10.1) Micro Microbiology 11/08/17 Blood Culture - Final, Complete NO GROWTH AFTER 5 DAYS 11/09/17 Anaerobic/Aerobic Culture - Preliminary, Resulted 11/09/17 Anaerobic Culture Result 1 (JLUIS) - Preliminary, Resulted 11/09/17 Aerobic Culture - Final, Resulted 11/09/17 Aerobic Culture Result 1 (JLUIS) - Final, Resulted 11/09/17 Antimicrobic Susceptibility - Final, Resulted 11/09/17 Gram Stain - Final, Resulted 11/09/17 Gram Stain Result 1 (JLUIS) - Final, Resulted 11/09/17 Gram Stain Result 2 (JLUIS) - Final, Resulted 11/08/17 Urine Culture - Final, Complete 11/08/17 Urine Culture Result 1 (JLUIS) - Final, Complete 11/08/17 Aerobic Culture - Final, Complete 11/08/17 Aerobic Culture Result 1 (JLUIS) - Final, Complete 11/08/17 Antimicrobic Susceptibility - Final, Complete 11/08/17 Gram Stain - Final, Complete 11/08/17 Gram Stain Result 1 (JLUIS) - Final, Complete 11/08/17 Gram Stain Result 2 (JLUIS) - Final, Complete Objective Assessment Abdominal wall fluid collection, 11/08. MRSA (Tetracycline sens) s/p XAVIER drain placement on 11/09. MSSA History of hernia repair with phasix mesh placement, September 2017. Leukocytosis - improved GOLDY History of previous exploratory laparotomy for small bowel resection, removal of mesh, ventral incisional hernia repair and debridement of abdominal wall, 08/10/2016. Diabetes. Subdural hematoma. Tobaccoism. Status post hysterectomy. Mild cognitive impairment, status post subdural hematoma at baseline per at bedside. Diarrhea, c. diff neg 11/09 Plan Plan of Care Cont Zyvox -Previously on Vanc, Zosyn, Diflucan Due to presence of mesh, and MRSA, antibiotics alone may not be optimal - d/w Nephrology following for GOLDY Supportive care D/w MARII PRINCE MD Nov 14, 2017 09:21
[2017-11-14] MEDS ORDERED: POTASSIUM CHLORIDE 20 MEQ TABLET.ER. PO ONE ×2 (09:45→18:00)
--- NOTE | 2017-11-14 10:11 | PDOC ---
IM PROGRESS NOTES- Subjective Subjective No complaints of pain or dyspnea. No complaints of diarrhea, nausea or vomiting. Objective Vitals Vital Signs Date Time Temp Pulse Resp B/P (MAP) Pulse Ox O2 Delivery O2 Flow Rate FiO2 11/14/17 07:45 Room Air 11/14/17 07:16 95 11/14/17 07:00 97.8 78 18 155/73 (100) 97.8 11/13/17 08:25 2.0 Input & Output Intake and Output 11/14/17 07:00 Intake Total 840 ml Output Total 190 ml Balance 650 ml Intake Oral 840 ml Output Drainage Total 190 ml # Voids 3 Physical Exam Physical Exam General appearance - alert,well appearing, and in no distress and oriented to person, place, and time Mental Status - alert, oriented to person, place, and time, affect appropriate to mood Head - normal Chest - clear to auscultation, no wheezes, rales or rhonchi, symmetric air entry Heart - S1 and S2 normal Abdomen - soft, nontender, nondistended, no masses or organomegaly Neurological - alert and oriented Musculoskeletal - no muscular tenderness noted Extremities -legs are slightly puffy. Skin - warm and dry Labs Laboratory Tests Test 11/12/17 11:53 11/12/17 17:03 11/12/17 20:54 11/13/17 07:44 Glucose (Fingerstick) 116 mg/dL (70-99) 141 mg/dL (70-99) 149 mg/dL (70-99) 134 mg/dL (70-99) Test 11/13/17 09:10 11/14/17 04:30 White Blood Count 9.2 x10^3/uL (4.0-11.0) 9.7 x10^3/uL (4.0-11.0) Red Blood Count 3.62 x10^6/uL (3.50-5.40) 3.54 x10^6/uL (3.50-5.40) Hemoglobin 10.2 g/dL (12.0-15.5) 10.1 g/dL (12.0-15.5) Hematocrit 30.9 % (36.0-47.0) 30.1 % (36.0-47.0) Mean Corpuscular Volume 86 fL (79-100) 85 fL (79-100) Mean Corpuscular Hemoglobin 28 pg (25-35) 29 pg (25-35) Mean Corpuscular Hemoglobin Concent 33 g/dL (31-37) 34 g/dL (31-37) Red Cell Distribution Width 14.0 % (11.5-14.5) 14.1 % (11.5-14.5) Platelet Count 367 x10^3/uL (140-400) 437 x10^3/uL (140-400) Neutrophils (%) (Auto) 76 % (31-73) 73 % (31-73) Lymphocytes (%) (Auto) 9 % (24-48) 14 % (24-48) Monocytes (%) (Auto) 10 % (0-9) 8 % (0-9) Eosinophils (%) (Auto) 4 % (0-3) 4 % (0-3) Basophils (%) (Auto) 1 % (0-3) 1 % (0-3) Neutrophils # (Auto) 7.0 x10^3uL (1.8-7.7) 7.1 x10^3uL (1.8-7.7) Lymphocytes # (Auto) 0.8 x10^3/uL (1.0-4.8) 1.4 x10^3/uL (1.0-4.8) Monocytes # (Auto) 0.9 x10^3/uL (0.0-1.1) 0.8 x10^3/uL (0.0-1.1) Eosinophils # (Auto) 0.3 x10^3/uL (0.0-0.7) 0.4 x10^3/uL (0.0-0.7) Basophils # (Auto) 0.1 x10^3/uL (0.0-0.2) 0.1 x10^3/uL (0.0-0.2) Sodium Level 148 mmol/L (136-145) 147 mmol/L (136-145) Potassium Level 3.5 mmol/L (3.5-5.1) 3.3 mmol/L (3.5-5.1) Chloride Level 113 mmol/L (98-107) 112 mmol/L (98-107) Carbon Dioxide Level 25 mmol/L (21-32) 24 mmol/L (21-32) Anion Gap 10 (6-14) 11 (6-14) Blood Urea Nitrogen 20 mg/dL (7-20) 20 mg/dL (7-20) Creatinine 2.3 mg/dL (0.6-1.0) 2.2 mg/dL (0.6-1.0) Estimated GFR (Cockcroft-Gault) 21.2 22.3 Glucose Level 214 mg/dL (70-99) 137 mg/dL (70-99) Calcium Level 8.6 mg/dL (8.5-10.1) 8.9 mg/dL (8.5-10.1) Laboratory Tests Test 11/14/17 04:30 White Blood Count 9.7 x10^3/uL (4.0-11.0) Red Blood Count 3.54 x10^6/uL (3.50-5.40) Hemoglobin 10.1 g/dL (12.0-15.5) Hematocrit 30.1 % (36.0-47.0) Mean Corpuscular Volume 85 fL (79-100) Mean Corpuscular Hemoglobin 29 pg (25-35) Mean Corpuscular Hemoglobin Concent 34 g/dL (31-37) Red Cell Distribution Width 14.1 % (11.5-14.5) Platelet Count 437 x10^3/uL (140-400) Neutrophils (%) (Auto) 73 % (31-73) Lymphocytes (%) (Auto) 14 % (24-48) Monocytes (%) (Auto) 8 % (0-9) Eosinophils (%) (Auto) 4 % (0-3) Basophils (%) (Auto) 1 % (0-3) Neutrophils # (Auto) 7.1 x10^3uL (1.8-7.7) Lymphocytes # (Auto) 1.4 x10^3/uL (1.0-4.8) Monocytes # (Auto) 0.8 x10^3/uL (0.0-1.1) Eosinophils # (Auto) 0.4 x10^3/uL (0.0-0.7) Basophils # (Auto) 0.1 x10^3/uL (0.0-0.2) Sodium Level 147 mmol/L (136-145) Potassium Level 3.3 mmol/L (3.5-5.1) Chloride Level 112 mmol/L (98-107) Carbon Dioxide Level 24 mmol/L (21-32) Anion Gap 11 (6-14) Blood Urea Nitrogen 20 mg/dL (7-20) Creatinine 2.2 mg/dL (0.6-1.0) Estimated GFR (Cockcroft-Gault) 22.3 Glucose Level 137 mg/dL (70-99) Calcium Level 8.9 mg/dL (8.5-10.1) Meds Current Medications Potassium Chloride (Klor-Con) 40 meq 1X ONCE PO ; Start 11/14/17 at 09:45; Stop 11/14/17 at 09:46; Status DC Assessment Assessment Problems Medical Problems: (1) Abdominal wall fluid collections Status: Acute FINAL IMPRESSION: Abdominal wall abscess/ cellulitis. 1. Infected abdominal mesh. The patient had hernia repair done a couple of months ago. 2. Recurrent ventral hernia. 3. History of subdural hematoma with late sequelae. 4. Chronic obstructive pulmonary disease. 5. Smoking history. 6. Accelerated hypertension. PLAN: Acute renal failure with CKD - creatinine is 2.2. I'll start her on IV fluids for about 8-[address] Dillon. Continue present treatment. Hypokalemia - Potassium is 3.2. Place potassium. Discussed with patient and her . No discharge today. Plan Plan 1. Continue empiric IV vancomycin and Zosyn. 2. We will add empiric Diflucan. 3. Follow up cultures and lab in a.m. 4. Continue supportive care. 5. General Surgery is following. BASIL SADLER MD Nov 14, 2017 10:11
[2017-11-14 11:00] VITALS: BP 165/78
--- NOTE | 2017-11-14 13:51 | PDOC ---
SURGICAL PROGRESS NOTE Subjective Pt without c/o, wyatt diet well Vital Signs Vital Signs Date Time Temp Pulse Resp B/P (MAP) Pulse Ox O2 Delivery O2 Flow Rate FiO2 11/14/17 11:57 Room Air 11/14/17 11:13 97 11/14/17 11:00 97.6 74 18 165/78 (107) 97.6 11/13/17 08:25 2.0 I&O Intake and Output 11/14/17 07:00 Intake Total 840 ml Output Total 190 ml Balance 650 ml Intake Oral 840 ml Output Drainage Total 190 ml # Voids 3 General: Alert, Oriented X3, Cooperative, No acute distress Abdomen: Soft, No tenderness Labs Laboratory Tests Test 11/12/17 17:03 11/12/17 20:54 11/13/17 07:44 11/13/17 09:10 Glucose (Fingerstick) 141 mg/dL (70-99) 149 mg/dL (70-99) 134 mg/dL (70-99) White Blood Count 9.2 x10^3/uL (4.0-11.0) Red Blood Count 3.62 x10^6/uL (3.50-5.40) Hemoglobin 10.2 g/dL (12.0-15.5) Hematocrit 30.9 % (36.0-47.0) Mean Corpuscular Volume 86 fL (79-100) Mean Corpuscular Hemoglobin 28 pg (25-35) Mean Corpuscular Hemoglobin Concent 33 g/dL (31-37) Red Cell Distribution Width 14.0 % (11.5-14.5) Platelet Count 367 x10^3/uL (140-400) Neutrophils (%) (Auto) 76 % (31-73) Lymphocytes (%) (Auto) 9 % (24-48) Monocytes (%) (Auto) 10 % (0-9) Eosinophils (%) (Auto) 4 % (0-3) Basophils (%) (Auto) 1 % (0-3) Neutrophils # (Auto) 7.0 x10^3uL (1.8-7.7) Lymphocytes # (Auto) 0.8 x10^3/uL (1.0-4.8) Monocytes # (Auto) 0.9 x10^3/uL (0.0-1.1) Eosinophils # (Auto) 0.3 x10^3/uL (0.0-0.7) Basophils # (Auto) 0.1 x10^3/uL (0.0-0.2) Sodium Level 148 mmol/L (136-145) Potassium Level 3.5 mmol/L (3.5-5.1) Chloride Level 113 mmol/L (98-107) Carbon Dioxide Level 25 mmol/L (21-32) Anion Gap 10 (6-14) Blood Urea Nitrogen 20 mg/dL (7-20) Creatinine 2.3 mg/dL (0.6-1.0) Estimated GFR (Cockcroft-Gault) 21.2 Glucose Level 214 mg/dL (70-99) Calcium Level 8.6 mg/dL (8.5-10.1) Test 11/14/17 04:30 White Blood Count 9.7 x10^3/uL (4.0-11.0) Red Blood Count 3.54 x10^6/uL (3.50-5.40) Hemoglobin 10.1 g/dL (12.0-15.5) Hematocrit 30.1 % (36.0-47.0) Mean Corpuscular Volume 85 fL (79-100) Mean Corpuscular Hemoglobin 29 pg (25-35) Mean Corpuscular Hemoglobin Concent 34 g/dL (31-37) Red Cell Distribution Width 14.1 % (11.5-14.5) Platelet Count 437 x10^3/uL (140-400) Neutrophils (%) (Auto) 73 % (31-73) Lymphocytes (%) (Auto) 14 % (24-48) Monocytes (%) (Auto) 8 % (0-9) Eosinophils (%) (Auto) 4 % (0-3) Basophils (%) (Auto) 1 % (0-3) Neutrophils # (Auto) 7.1 x10^3uL (1.8-7.7) Lymphocytes # (Auto) 1.4 x10^3/uL (1.0-4.8) Monocytes # (Auto) 0.8 x10^3/uL (0.0-1.1) Eosinophils # (Auto) 0.4 x10^3/uL (0.0-0.7) Basophils # (Auto) 0.1 x10^3/uL (0.0-0.2) Sodium Level 147 mmol/L (136-145) Potassium Level 3.3 mmol/L (3.5-5.1) Chloride Level 112 mmol/L (98-107) Carbon Dioxide Level 24 mmol/L (21-32) Anion Gap 11 (6-14) Blood Urea Nitrogen 20 mg/dL (7-20) Creatinine 2.2 mg/dL (0.6-1.0) Estimated GFR (Cockcroft-Gault) 22.3 Glucose Level 137 mg/dL (70-99) Calcium Level 8.9 mg/dL (8.5-10.1) Laboratory Tests Test 11/14/17 04:30 White Blood Count 9.7 x10^3/uL (4.0-11.0) Red Blood Count 3.54 x10^6/uL (3.50-5.40) Hemoglobin 10.1 g/dL (12.0-15.5) Hematocrit 30.1 % (36.0-47.0) Mean Corpuscular Volume 85 fL (79-100) Mean Corpuscular Hemoglobin 29 pg (25-35) Mean Corpuscular Hemoglobin Concent 34 g/dL (31-37) Red Cell Distribution Width 14.1 % (11.5-14.5) Platelet Count 437 x10^3/uL (140-400) Neutrophils (%) (Auto) 73 % (31-73) Lymphocytes (%) (Auto) 14 % (24-48) Monocytes (%) (Auto) 8 % (0-9) Eosinophils (%) (Auto) 4 % (0-3) Basophils (%) (Auto) 1 % (0-3) Neutrophils # (Auto) 7.1 x10^3uL (1.8-7.7) Lymphocytes # (Auto) 1.4 x10^3/uL (1.0-4.8) Monocytes # (Auto) 0.8 x10^3/uL (0.0-1.1) Eosinophils # (Auto) 0.4 x10^3/uL (0.0-0.7) Basophils # (Auto) 0.1 x10^3/uL (0.0-0.2) Sodium Level 147 mmol/L (136-145) Potassium Level 3.3 mmol/L (3.5-5.1) Chloride Level 112 mmol/L (98-107) Carbon Dioxide Level 24 mmol/L (21-32) Anion Gap 11 (6-14) Blood Urea Nitrogen 20 mg/dL (7-20) Creatinine 2.2 mg/dL (0.6-1.0) Estimated GFR (Cockcroft-Gault) 22.3 Glucose Level 137 mg/dL (70-99) Calcium Level 8.9 mg/dL (8.5-10.1) Problem List Problems Medical Problems: (1) Abdominal wall fluid collections Status: Acute Assessment/Plan infected abd wall seroma cont abx and drain OK to d/c home once cr and k improved DANYA EPSTEIN MD Nov 14, 2017 13:51
[2017-11-14 15:00] VITALS: BP 160/70
[2017-11-14 19:00] VITALS: BP 171/76
[2017-11-14] MEDS: AMITRIPTYLINE HCL 10 MG TABLET. PO SCH (21:24)
[2017-11-14 23:00] VITALS: BP 181/65
[2017-11-15 03:00] VITALS: BP 142/57
[2017-11-15 04:38] LABS: BASO % 1 % (0-3); EOS # 0.3 x10^3/uL (0.0-0.7); EOS % 4 % (0-3); HEMATOCRIT 30.2 % (36.0-47.0); HEMOGLOBIN 9.8 g/dL (12.0-15.5); LYMPH # 1.3 x10^3/uL (1.0-4.8); LYMPH % 16 % (24-48); MEAN CORPUSCULAR HEMOGLOBIN 28 pg (25-35); MEAN CORPUSCULAR HGB CONC 33 g/dL (31-37); MEAN CORPUSCULAR VOLUME 86 fL (79-100); MONO # 0.7 x10^3/uL (0.0-1.1); MONO % 9 % (0-9); NEUT # 5.4 x10^3uL (1.8-7.7); NEUT % 70 % (31-73); PLATELET COUNT 448 x10^3/uL (140-400); RED BLOOD COUNT 3.52 x10^6/uL (3.50-5.40); RED CELL DISTRIBUTION WIDTH 14.1 % (11.5-14.5); WHITE BLOOD COUNT 7.7 x10^3/uL (4.0-11.0)
[2017-11-15] MEDS: HYDROcodone/APAP 5/325MG 1 TAB TABLET PO PRN (04:45)
[2017-11-15] MEDS: IBUPROFEN 600 MG TABLET. PO PRN (04:45)
[2017-11-15 05:25] LABS: CALCIUM 8.3 mg/dL (8.5-10.1); GFR 24.9
[2017-11-15 07:00] VITALS: BP 184/76
[2017-11-15] MEDS: IPRATRPIUM/ALBUTEROL 0.5/2.5MG 3 ML NEBU. NEB SCH ×3 (07:06→14:53)
[2017-11-15] MEDS: LACTOBACILLUS RHAMNOSUS GG 1 CAPSULE. PO SCH (09:23)
[2017-11-15] MEDS: LINEZOLID 600 MG TABLET PO SCH (09:24)
[2017-11-15] MEDS: MULTIVITAMIN with MINERAL TABLET. PO SCH (09:24)
[2017-11-15] MEDS: CALCIUM CARBONATE 500 MG TABLET PO SCH (09:25)
--- NOTE | 2017-11-15 09:29 | PDOC ---
PROGRESS NOTES Subjective Subjective pt want to go home. Objective Objective Vital Signs Date Time Temp Pulse Resp B/P (MAP) Pulse Ox O2 Delivery O2 Flow Rate FiO2 11/15/17 07:06 98 Room Air 11/15/17 07:00 97.4 79 16 184/76 (112) 97.4 Intake and Output 11/15/17 07:00 Intake Total 1120 ml Output Total 170 ml Balance 950 ml Intake Oral 120 ml IV Total 1000 ml Output Drainage Total 170 ml # Voids 2 Physical Exam Abdomen: Soft, No tenderness Heart: Regular rate, Normal S1, Normal S2 Extremities: No cyanosis General: Alert, Oriented X3, Cooperative, No acute distress HEENT: PERRLA, EOMI, Mucous membr. moist/pink Lungs: Clear to auscultation MUSCULOSKELETAL: No deformity, No swelling Neuro: Normal speech, Cranial nerves 3-12 NL Psych/Mental Status: Mental status NL, Mood NL Skin: No rashes, No breakdown COMMENT drain abd wall Diagnosis Problem List Problems Medical Problems: (1) Abdominal wall fluid collections Status: Acute Assessment Assessment Problems Medical Problems: (1) Abdominal wall fluid collections Status: Acute FINAL IMPRESSION: Abdominal wall abscess/ cellulitis. 1. Infected abdominal mesh. The patient had hernia repair done a couple of months ago. 2. Recurrent ventral hernia. 3. History of subdural hematoma with late sequelae. 4. Chronic obstructive pulmonary disease. 5. Smoking history. 6. Accelerated hypertension. PLAN: d/c home on Zyvox for 2 weeks. d/c home with home health,with drain in place. Acute renal failure with CKD - creatinine is 2.0 trending down Discussed with Dr. Dillon. Continue present treatment. Hypokalemia - Potassium is 3.6. Place potassium. Discussed with patient and her .. Plan Plan of Care Problems Medical Problems: (1) Abdominal wall fluid collections Status: Acute Comment Review of Relevant I have reviewed the following items ranulfo (where applicable) has been applied. Labs Laboratory Tests Test 11/15/17 03:55 White Blood Count 7.7 x10^3/uL (4.0-11.0) Red Blood Count 3.52 x10^6/uL (3.50-5.40) Hemoglobin 9.8 g/dL (12.0-15.5) Hematocrit 30.2 % (36.0-47.0) Mean Corpuscular Volume 86 fL (79-100) Mean Corpuscular Hemoglobin 28 pg (25-35) Mean Corpuscular Hemoglobin Concent 33 g/dL (31-37) Red Cell Distribution Width 14.1 % (11.5-14.5) Platelet Count 448 x10^3/uL (140-400) Neutrophils (%) (Auto) 70 % (31-73) Lymphocytes (%) (Auto) 16 % (24-48) Monocytes (%) (Auto) 9 % (0-9) Eosinophils (%) (Auto) 4 % (0-3) Basophils (%) (Auto) 1 % (0-3) Neutrophils # (Auto) 5.4 x10^3uL (1.8-7.7) Lymphocytes # (Auto) 1.3 x10^3/uL (1.0-4.8) Monocytes # (Auto) 0.7 x10^3/uL (0.0-1.1) Eosinophils # (Auto) 0.3 x10^3/uL (0.0-0.7) Basophils # (Auto) 0.0 x10^3/uL (0.0-0.2) Sodium Level 149 mmol/L (136-145) Potassium Level 4.0 mmol/L (3.5-5.1) Chloride Level 116 mmol/L (98-107) Carbon Dioxide Level 24 mmol/L (21-32) Anion Gap 9 (6-14) Blood Urea Nitrogen 18 mg/dL (7-20) Creatinine 2.0 mg/dL (0.6-1.0) Estimated GFR (Cockcroft-Gault) 24.9 Glucose Level 113 mg/dL (70-99) Calcium Level 8.3 mg/dL (8.5-10.1) Microbiology 11/08/17 Blood Culture - Final, Complete NO GROWTH AFTER 5 DAYS 11/09/17 Anaerobic/Aerobic Culture - Final, Complete 11/09/17 Anaerobic Culture Result 1 (JLUIS) - Final, Complete 11/09/17 Aerobic Culture - Final, Complete 11/09/17 Aerobic Culture Result 1 (JLUIS) - Final, Complete 11/09/17 Antimicrobic Susceptibility - Final, Complete 11/09/17 Gram Stain - Final, Complete 11/09/17 Gram Stain Result 1 (JLUIS) - Final, Complete 11/09/17 Gram Stain Result 2 (JLUIS) - Final, Complete 11/08/17 Urine Culture - Final, Complete 11/08/17 Urine Culture Result 1 (JLUIS) - Final, Complete 11/08/17 Aerobic Culture - Final, Complete 11/08/17 Aerobic Culture Result 1 (JLUIS) - Final, Complete 11/08/17 Antimicrobic Susceptibility - Final, Complete 11/08/17 Gram Stain - Final, Complete 11/08/17 Gram Stain Result 1 (JLUIS) - Final, Complete 11/08/17 Gram Stain Result 2 (JLUIS) - Final, Complete Medications Current Medications Potassium Chloride/Sodium Chloride 1,000 ml @ 75 mls/hr [id number] IV Last administered on 11/14/17at 10:30; Start 11/14/17 at 11:00; Stop 11/14/17 at 11:01; Status DC Potassium Chloride (Klor-Con) 20 meq 1X ONCE PO Last administered on 11/14/17at 18:02; Start 11/14/17 at 18:00; Stop 11/14/17 at 18:01; Status DC Potassium Chloride (Klor-Con) 40 meq 1X ONCE PO Last administered on 11/14/17at 10:29; Start 11/14/17 at 09:45; Stop 11/14/17 at 09:46; Status DC Vitals/I & O Vital Sign - Last 24 Hours 11/14/17 11/14/17 11/14/17 11/14/17 11:00 11:13 11:57 15:00 Temp 97.6 97.2 97.6 97.2 Pulse 74 72 Resp 18 18 B/P (MAP) 165/78 (107) 160/70 (100) Pulse Ox 97 97 96 O2 Delivery Room Air Room Air Room Air Room Air 11/14/17 11/14/17 11/14/17 11/14/17 16:36 18:02 19:00 19:05 Temp 98.6 98.6 Pulse 80 Resp 18 B/P (MAP) 171/76 (107) Pulse Ox 97 96 O2 Delivery Room Air Room Air Room Air Room Air 11/14/17 11/14/17 11/15/17 11/15/17 20:07 23:00 03:00 07:00 Temp 97.9 98.6 97.4 97.9 98.6 97.4 Pulse 80 87 79 Resp 18 18 16 B/P (MAP) 181/65 (103) 142/57 (85) 184/76 (112) Pulse Ox 96 96 96 96 O2 Delivery Room Air Room Air Room Air Room Air 11/15/17 07:06 Pulse Ox 98 O2 Delivery Room Air Intake and Output 11/14/17 11/14/17 11/15/17 15:00 23:00 07:00 Intake Total 120 ml 1000 ml Output Total 90 ml 10 ml 70 ml Balance 30 ml -10 ml 930 ml CHRISTOPH LE MD Nov 15, 2017 09:29
[2017-11-15] MEDS ORDERED: LINE600T PO (09:32)
--- NOTE | 2017-11-15 10:07 | PDOC ---
Provider Note Provider Note discharge summary dictated. #[id number] CHRISTOPH LE MD Nov 15, 2017 10:07
--- NOTE | 2017-11-15 10:26 | PDOC ---
SUBJECTIVE ROS No new concerns/Complaints OBJECTIVE Vital Signs Vital Signs Date Time Temp Pulse Resp B/P (MAP) Pulse Ox O2 Delivery O2 Flow Rate FiO2 11/15/17 07:06 98 Room Air 11/15/17 07:00 97.4 79 16 184/76 (112) 97.4 I & 0 Intake and Output 11/15/17 07:00 Intake Total 1120 ml Output Total 170 ml Balance 950 ml Intake Oral 120 ml IV Total 1000 ml Output Drainage Total 170 ml # Voids 2 PHYSICAL EXAM Physical Exam General: In bed, NAD, HENT: OM moist LUNGS: CTAB Heart: S1 and S2 normal Abdomen: Soft, Obese, BS present, soft, mildly tender, XAVIER drain intact. Abd wound dressed. 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 May need follow up with Renal US / Follow up with Urology if concerning Abdominal wall fluid collection, s/p XAVIER drain placement on 11/09 History of hernia repair with mesh placement, September 2017. Discussed a/p with pt at bedside COMMENT/RELEVANT DATA Meds Current Medications Medications (Trade) Dose Ordered Sig/Maite Start Time Stop Time Status Last Admin Dose Admin Acetaminophen (Tylenol) 650 mg PRN Q8HRS PRN 11/08/17 20:30 11/14/17 01:36 650 MG Acetaminophen/ Hydrocodone Bitart (Lortab 5/325) 1 tab PRN Q6HRS PRN 11/08/17 18:45 11/15/17 04:45 1 TAB Albuterol Sulfate (Ventolin Neb Soln) 2.5 mg PRN DAILY PRN 11/09/17 09:45 Albuterol/ Ipratropium (Duoneb) 3 ml RTQID 11/08/17 20:00 11/15/17 07:06 3 ML Amitriptyline HCl (Elavil) 10 mg QHS 11/09/17 21:00 11/14/17 21:24 10 MG Benzonatate (Tessalon Perle) 100 mg [id number] 11/09/17 14:00 11/11/17 14:29 DC 11/11/17 09:33 100 MG Brimonidine Tartrate (Alphagan) 1 drop BID 11/09/17 10:00 11/11/17 09:53 DC Calcium Carbonate/ Glycine (Oscal) 500 mg DAILY 11/09/17 10:00 11/15/17 09:25 500 MG Dextrose (Dextrose 50%-Water Syringe) 12.5 gm PRN Q15MIN PRN 11/08/17 20:30 Dorzolamide HCl (Trusopt) 1 drop BID 11/09/17 10:00 11/11/17 09:53 DC Fluconazole/ Sodium Chloride 100 ml @ 100 mls/hr Q24H 11/09/17 13:00 11/11/17 10:22 DC 11/10/17 12:59 100 MLS/HR Ibuprofen (Motrin) 600 mg PRN Q6HRS PRN 11/09/17 09:45 11/15/17 04:45 600 MG Info (CONTRAST GIVEN -- Rx MONITORING) 1 each PRN DAILY PRN 11/08/17 13:00 11/10/17 12:59 DC Insulin Human Lispro (HumaLOG) 2 units 1X ONCE 11/08/17 21:00 11/08/17 21:01 DC 11/08/17 21:26 2 UNITS Iohexol (Omnipaque 300 Mg/ml) 75 ml 1X ONCE 11/08/17 13:00 11/08/17 13:01 DC 11/08/17 13:00 75 ML Labetalol HCl (Normodyne Iv Push) 20 mg 1X ONCE 11/08/17 15:00 11/08/17 15:02 DC 11/08/17 15:17 20 MG Lactobacillus Rhamnosus (Culturelle) 1 cap BID 11/10/17 21:00 11/15/17 09:23 1 CAP Latanoprost (Xalatan) 1 drop BID 11/09/17 10:00 11/11/17 09:53 DC Lidocaine/Sodium Bicarbonate (Buffered Lidocaine 1%) 3 ml 1X ONCE 11/09/17 11:00 11/09/17 11:01 DC 11/09/17 11:03 4 ML Linezolid (Zyvox) 600 mg BID 11/11/17 11:00 11/15/17 09:24 600 MG Meclizine HCl (Antivert) 25 mg PRN Q8HRS PRN 11/09/17 09:45 Multivitamins (Thera M Plus) 1 tab DAILY 11/09/17 10:00 11/15/17 09:24 1 TAB Piperacillin Sod/ Tazobactam Sod (Zosyn Per Pharmacy) 1 each PRN DAILY PRN 11/08/17 15:00 11/11/17 10:21 DC Piperacillin Sod/ Tazobactam Sod 2.25 gm/Sodium Chloride 50 ml @ 100 mls/hr Q6HRS 11/10/17 13:00 11/11/17 10:21 DC 11/11/17 06:11 100 MLS/HR Piperacillin Sod/ Tazobactam Sod 3.375 gm/Sodium Chloride 50 ml @ 100 mls/hr Q6HRS 11/08/17 23:00 11/10/17 12:33 DC 11/10/17 05:31 100 MLS/HR Potassium Chloride/Sodium Chloride 1,000 ml @ 75 mls/hr [id number] 11/14/17 11:00 11/14/17 11:01 DC 11/14/17 10:30 75 MLS/HR Potassium Chloride (Klor-Con) 20 meq 1X ONCE 11/14/17 18:00 11/14/17 18:01 DC 11/14/17 18:02 20 MEQ Sodium Chloride 1,000 ml @ 100 mls/hr Q10H 11/08/17 19:00 11/11/17 09:29 DC 11/10/17 13:01 100 MLS/HR Timolol Maleate (Timoptic 0.5% Ophth) 1 drop BID 11/09/17 10:00 11/11/17 09:53 DC Vancomycin HCl (Vanco Per Pharmacy) 1 each PRN DAILY PRN 11/09/17 14:00 11/11/17 10:21 DC 11/10/17 12:27 1 EACH Vancomycin HCl (Vancomycin Random Level) 1 each 1X ONCE 11/11/17 09:00 11/11/17 10:21 DC 11/11/17 09:00 1 EACH Vancomycin HCl (Vancomycin Trough Level) 1 each 1X ONCE 11/10/17 08:30 11/10/17 08:31 DC Vancomycin HCl 1.5 gm/Sodium Chloride 500 ml @ 250 mls/hr Q12H 11/09/17 09:00 11/10/17 09:57 DC 11/09/17 22:04 250 MLS/HR Vancomycin HCl 2 gm/Sodium Chloride 500 ml @ 250 mls/hr 1X ONCE 11/08/17 20:45 11/08/17 22:44 DC 11/08/17 21:04 250 MLS/HR Lab Laboratory Tests Test 11/15/17 03:55 White Blood Count 7.7 x10^3/uL (4.0-11.0) Red Blood Count 3.52 x10^6/uL (3.50-5.40) Hemoglobin 9.8 g/dL (12.0-15.5) Hematocrit 30.2 % (36.0-47.0) Mean Corpuscular Volume 86 fL (79-100) Mean Corpuscular Hemoglobin 28 pg (25-35) Mean Corpuscular Hemoglobin Concent 33 g/dL (31-37) Red Cell Distribution Width 14.1 % (11.5-14.5) Platelet Count 448 x10^3/uL (140-400) Neutrophils (%) (Auto) 70 % (31-73) Lymphocytes (%) (Auto) 16 % (24-48) Monocytes (%) (Auto) 9 % (0-9) Eosinophils (%) (Auto) 4 % (0-3) Basophils (%) (Auto) 1 % (0-3) Neutrophils # (Auto) 5.4 x10^3uL (1.8-7.7) Lymphocytes # (Auto) 1.3 x10^3/uL (1.0-4.8) Monocytes # (Auto) 0.7 x10^3/uL (0.0-1.1) Eosinophils # (Auto) 0.3 x10^3/uL (0.0-0.7) Basophils # (Auto) 0.0 x10^3/uL (0.0-0.2) Sodium Level 149 mmol/L (136-145) Potassium Level 4.0 mmol/L (3.5-5.1) Chloride Level 116 mmol/L (98-107) Carbon Dioxide Level 24 mmol/L (21-32) Anion Gap 9 (6-14) Blood Urea Nitrogen 18 mg/dL (7-20) Creatinine 2.0 mg/dL (0.6-1.0) Estimated GFR (Cockcroft-Gault) 24.9 Glucose Level 113 mg/dL (70-99) Calcium Level 8.3 mg/dL (8.5-10.1) Results All relevant outside records, renal labs, imaging studies, telemetry/EKG's were reviewed. GILBERTO GALVEZ MD Nov 15, 2017 10:26
[2017-11-15 10:43] VITALS: BP 179/76
--- NOTE | 2017-11-15 11:44 | PDOC ---
Infectious Disease Note Subjective Subjective Doing ok. No F/C/S/N/V/S/SOA Appetite better No fevers/chills Ready to go home ROS ROS o/e neg Vital Sign Vital Signs Vital Signs Date Time Temp Pulse Resp B/P (MAP) Pulse Ox O2 Delivery O2 Flow Rate FiO2 11/15/17 11:02 95 Room Air 11/15/17 10:43 97.7 80 16 179/76 (110) 97.7 Physical Exam PHYSICAL EXAM General: In bed, NAD, coop HENT: edentulous. LUNGS: CTAB Heart: S1 and S2 normal Abdomen: Soft, Obese, + striae, BS present, soft, not grossly tender, XAVIER drain intact. Abd wound dressed. 2 cm defect open and clean other scabbed area that is clean Extremities: No gross edema or cyanosis Skin: warm and dry. 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 Labs Lab Laboratory Tests Test 11/15/17 03:55 White Blood Count 7.7 x10^3/uL (4.0-11.0) Red Blood Count 3.52 x10^6/uL (3.50-5.40) Hemoglobin 9.8 g/dL (12.0-15.5) Hematocrit 30.2 % (36.0-47.0) Mean Corpuscular Volume 86 fL (79-100) Mean Corpuscular Hemoglobin 28 pg (25-35) Mean Corpuscular Hemoglobin Concent 33 g/dL (31-37) Red Cell Distribution Width 14.1 % (11.5-14.5) Platelet Count 448 x10^3/uL (140-400) Neutrophils (%) (Auto) 70 % (31-73) Lymphocytes (%) (Auto) 16 % (24-48) Monocytes (%) (Auto) 9 % (0-9) Eosinophils (%) (Auto) 4 % (0-3) Basophils (%) (Auto) 1 % (0-3) Neutrophils # (Auto) 5.4 x10^3uL (1.8-7.7) Lymphocytes # (Auto) 1.3 x10^3/uL (1.0-4.8) Monocytes # (Auto) 0.7 x10^3/uL (0.0-1.1) Eosinophils # (Auto) 0.3 x10^3/uL (0.0-0.7) Basophils # (Auto) 0.0 x10^3/uL (0.0-0.2) Sodium Level 149 mmol/L (136-145) Potassium Level 4.0 mmol/L (3.5-5.1) Chloride Level 116 mmol/L (98-107) Carbon Dioxide Level 24 mmol/L (21-32) Anion Gap 9 (6-14) Blood Urea Nitrogen 18 mg/dL (7-20) Creatinine 2.0 mg/dL (0.6-1.0) Estimated GFR (Cockcroft-Gault) 24.9 Glucose Level 113 mg/dL (70-99) Calcium Level 8.3 mg/dL (8.5-10.1) Micro Microbiology 11/08/17 Blood Culture - Final, Complete NO GROWTH AFTER 5 DAYS 11/09/17 Anaerobic/Aerobic Culture - Preliminary, Resulted 11/09/17 Anaerobic Culture Result 1 (JLUIS) - Preliminary, Resulted 11/09/17 Aerobic Culture - Final, Resulted 11/09/17 Aerobic Culture Result 1 (JLUIS) - Final, Resulted 11/09/17 Antimicrobic Susceptibility - Final, Resulted 11/09/17 Gram Stain - Final, Resulted 11/09/17 Gram Stain Result 1 (JLUIS) - Final, Resulted 11/09/17 Gram Stain Result 2 (JLUIS) - Final, Resulted 11/08/17 Urine Culture - Final, Complete 11/08/17 Urine Culture Result 1 (JLUIS) - Final, Complete 11/08/17 Aerobic Culture - Final, Complete 11/08/17 Aerobic Culture Result 1 (JLUIS) - Final, Complete 11/08/17 Antimicrobic Susceptibility - Final, Complete 11/08/17 Gram Stain - Final, Complete 11/08/17 Gram Stain Result 1 (JLUIS) - Final, Complete 11/08/17 Gram Stain Result 2 (JLUIS) - Final, Complete Objective Assessment Abdominal wall fluid collection, 11/08. MRSA (Tetracycline sens) s/p XAVIER drain placement on 11/09. MSSA History of hernia repair with phasix mesh placement, September 2017. Leukocytosis - improved GOLDY History of previous exploratory laparotomy for small bowel resection, removal of mesh, ventral incisional hernia repair and debridement of abdominal wall, 08/10/2016. Diabetes. Subdural hematoma. Tobaccoism. Status post hysterectomy. Mild cognitive impairment, status post subdural hematoma at baseline per at bedside. Diarrhea, c. diff neg 11/09 Plan Plan of Care D/cont Zyvox - home on Doxycycline -Previously on Vanc, Zosyn, Diflucan Due to presence of mesh, and MRSA, antibiotics alone may not be optimal - d/w . Explained that may treat for a while and then may stop antibiotics and monitor and if it re-occurs then mesh maybe infected Nephrology following for GOLDY Supportive care F/u ID office 2 weeks [phone] scan D/w MARII PRINCE MD Nov 15, 2017 11:44
--- NOTE | 2017-11-15 11:55 | DS ---
DATE OF DISCHARGE: 11/15/2017 REASON FOR ADMISSION TO THE HOSPITAL: Abdominal wall cellulitis and abscess. CONSULTATIONS: Dr. Wang, Surgery; Dr. Jamee Bass, Infectious Disease; Dr. Arceo, Renal. PROCEDURES DONE: 1. CT scan of the abdomen and pelvis. 2. Interventional Radiology put a drain in the abdominal wall. HOSPITAL COURSE: The patient is a 67-year-old female. The patient has a recurrent ventral hernia. She had a surgery done 2 months ago. The patient had an abdominal wall incisional hernia repair done on 09/27/2017. Hernia sac was removed, had an absorbable mesh, which was placed at that time. She went home and she was having redness and drainage from the abdominal site, came in to the hospital, her white count elevated to 16,000 and culture showed MRSA, was seen by Infectious Disease and Dr. Wang. The patient was seen in consultation with Interventional Radiology, a drain was placed in the abdominal wall and the patient was continued on antibiotics, was on vancomycin, Zosyn and Diflucan. Later on, once the cultures came back we changed it to Zyvox. The patient's creatinine went up from 1.5 to 2.4. Seen by Renal, it was thought secondary to maybe ATN and with time it should improve, and it was trending to 2.0 at the time of discharge. On the whole, the patient's condition remained stable. White count was around 7, creatinine was 2 and culture shows MRSA. The patient is on Zyvox. The patient was discharged home with a drain with home health, continue antibiotics for 2 weeks, and follow with surgeon in 1 week, primary care 2 weeks, Infectious Disease in 3 weeks, and we will monitor kidney function as well as platelets while she is on Zyvox weekly for the next 2 weeks. CHRISTOPH LE MD DR: PURVI/genesis JOB#: [id number] / [id number] KATHRIN
--- NOTE | 2017-11-15 14:36 | PDOC ---
SURGICAL PROGRESS NOTE Subjective Pt feels better, ready for d/c Vital Signs Vital Signs Date Time Temp Pulse Resp B/P (MAP) Pulse Ox O2 Delivery O2 Flow Rate FiO2 11/15/17 11:02 95 Room Air 11/15/17 10:43 97.7 80 16 179/76 (110) 97.7 I&O Intake and Output 11/15/17 07:00 Intake Total 1120 ml Output Total 170 ml Balance 950 ml Intake Oral 120 ml IV Total 1000 ml Output Drainage Total 170 ml # Voids 2 General: Alert, Oriented X3, Cooperative, No acute distress Abdomen: Soft, No tenderness, Other (XAVIER serosang) Labs Laboratory Tests Test 11/14/17 04:30 11/15/17 03:55 White Blood Count 9.7 x10^3/uL (4.0-11.0) 7.7 x10^3/uL (4.0-11.0) Red Blood Count 3.54 x10^6/uL (3.50-5.40) 3.52 x10^6/uL (3.50-5.40) Hemoglobin 10.1 g/dL (12.0-15.5) 9.8 g/dL (12.0-15.5) Hematocrit 30.1 % (36.0-47.0) 30.2 % (36.0-47.0) Mean Corpuscular Volume 85 fL (79-100) 86 fL (79-100) Mean Corpuscular Hemoglobin 29 pg (25-35) 28 pg (25-35) Mean Corpuscular Hemoglobin Concent 34 g/dL (31-37) 33 g/dL (31-37) Red Cell Distribution Width 14.1 % (11.5-14.5) 14.1 % (11.5-14.5) Platelet Count 437 x10^3/uL (140-400) 448 x10^3/uL (140-400) Neutrophils (%) (Auto) 73 % (31-73) 70 % (31-73) Lymphocytes (%) (Auto) 14 % (24-48) 16 % (24-48) Monocytes (%) (Auto) 8 % (0-9) 9 % (0-9) Eosinophils (%) (Auto) 4 % (0-3) 4 % (0-3) Basophils (%) (Auto) 1 % (0-3) 1 % (0-3) Neutrophils # (Auto) 7.1 x10^3uL (1.8-7.7) 5.4 x10^3uL (1.8-7.7) Lymphocytes # (Auto) 1.4 x10^3/uL (1.0-4.8) 1.3 x10^3/uL (1.0-4.8) Monocytes # (Auto) 0.8 x10^3/uL (0.0-1.1) 0.7 x10^3/uL (0.0-1.1) Eosinophils # (Auto) 0.4 x10^3/uL (0.0-0.7) 0.3 x10^3/uL (0.0-0.7) Basophils # (Auto) 0.1 x10^3/uL (0.0-0.2) 0.0 x10^3/uL (0.0-0.2) Sodium Level 147 mmol/L (136-145) 149 mmol/L (136-145) Potassium Level 3.3 mmol/L (3.5-5.1) 4.0 mmol/L (3.5-5.1) Chloride Level 112 mmol/L (98-107) 116 mmol/L (98-107) Carbon Dioxide Level 24 mmol/L (21-32) 24 mmol/L (21-32) Anion Gap 11 (6-14) 9 (6-14) Blood Urea Nitrogen 20 mg/dL (7-20) 18 mg/dL (7-20) Creatinine 2.2 mg/dL (0.6-1.0) 2.0 mg/dL (0.6-1.0) Estimated GFR (Cockcroft-Gault) 22.3 24.9 Glucose Level 137 mg/dL (70-99) 113 mg/dL (70-99) Calcium Level 8.9 mg/dL (8.5-10.1) 8.3 mg/dL (8.5-10.1) Laboratory Tests Test 11/15/17 03:55 White Blood Count 7.7 x10^3/uL (4.0-11.0) Red Blood Count 3.52 x10^6/uL (3.50-5.40) Hemoglobin 9.8 g/dL (12.0-15.5) Hematocrit 30.2 % (36.0-47.0) Mean Corpuscular Volume 86 fL (79-100) Mean Corpuscular Hemoglobin 28 pg (25-35) Mean Corpuscular Hemoglobin Concent 33 g/dL (31-37) Red Cell Distribution Width 14.1 % (11.5-14.5) Platelet Count 448 x10^3/uL (140-400) Neutrophils (%) (Auto) 70 % (31-73) Lymphocytes (%) (Auto) 16 % (24-48) Monocytes (%) (Auto) 9 % (0-9) Eosinophils (%) (Auto) 4 % (0-3) Basophils (%) (Auto) 1 % (0-3) Neutrophils # (Auto) 5.4 x10^3uL (1.8-7.7) Lymphocytes # (Auto) 1.3 x10^3/uL (1.0-4.8) Monocytes # (Auto) 0.7 x10^3/uL (0.0-1.1) Eosinophils # (Auto) 0.3 x10^3/uL (0.0-0.7) Basophils # (Auto) 0.0 x10^3/uL (0.0-0.2) Sodium Level 149 mmol/L (136-145) Potassium Level 4.0 mmol/L (3.5-5.1) Chloride Level 116 mmol/L (98-107) Carbon Dioxide Level 24 mmol/L (21-32) Anion Gap 9 (6-14) Blood Urea Nitrogen 18 mg/dL (7-20) Creatinine 2.0 mg/dL (0.6-1.0) Estimated GFR (Cockcroft-Gault) 24.9 Glucose Level 113 mg/dL (70-99) Calcium Level 8.3 mg/dL (8.5-10.1) Problem List Problems Medical Problems: (1) Abdominal wall fluid collections Status: Acute Assessment/Plan abd wall abscess cont abx and drain OK to d/c home DANYA EPSTEIN MD Nov 15, 2017 14:36
[2017-11-15 15:00] VITALS: BP 197/74
[2017-11-15] MEDS ORDERED: cloNIDine HCL 0.1 MG TABLET PO ONE (17:00)
[2017-11-15 18:44] VITALS: BP 177/79
== END 2017-11-15 19:00 | disposition home health service (06) | DRG 919 ==
LOC: ER 11:32 → 4 NORTH 15:00
PROVIDERS: ADMIT Internal Medicine; ATTEND Internal Medicine
PROC: 0W9F30Z Drainage of Abdominal Wall with Drainage Device, Percutaneous Approach (ICD-10-PCS; principal; 2017-11-09)
DX: T85.79XA Infection and inflammatory reaction due to other internal prosthetic devices, implants and grafts, initial encounter (principal); A41.9 Sepsis, unspecified organism; N17.0 Acute kidney failure with tubular necrosis; E87.0 Hyperosmolality and hypernatremia; L02.211 Cutaneous abscess of abdominal wall; L03.311 Cellulitis of abdominal wall; L76.34 Postprocedural seroma of skin and subcutaneous tissue following other procedure; J44.9 Chronic obstructive pulmonary disease, unspecified; E11.9 Type 2 diabetes mellitus without complications; E66.9 Obesity, unspecified; F17.200 Nicotine dependence, unspecified, uncomplicated; G31.84 Mild cognitive impairment of uncertain or unknown etiology; M19.90 Unspecified osteoarthritis, unspecified site; E87.6 Hypokalemia; I10 Essential (primary) hypertension; K21.9 Gastro-esophageal reflux disease without esophagitis; Z86.14 Personal history of Methicillin resistant Staphylococcus aureus infection; Z90.49 Acquired absence of other specified parts of digestive tract; Z90.710 Acquired absence of both cervix and uterus; Y83.2 Surgical operation with anastomosis, bypass or graft as the cause of abnormal reaction of the patient, or of later complication, without mention of misadventure at the time of the procedure; Z68.38 Body mass index [BMI] 38.0-38.9, adult
CPT/HCPCS: 10030; 36415; 74177; 80048; 80053; 80202; 81001; 82962; 83605; 83690; 85007; 85025; 85610; 85730; 87040; 87070; 87071; 87075; 87086; 87186; 87324; 94640; 94760; 96361; 96365; 96375; C1729; C1769; C1892; C1894; J1450; J1815; J2543; J3370; J3490; J7030; J7040; J7620; Q9967; 97110; 97116; 97530; 99285-25

== ENCOUNTER → 2017-12-01 | Outpatient (CLI) | payer OTHER, MEDICARE ==
[2017-11-15 18:44] VITALS: BP 177/79
[~2017-12-01] MED LIST changes: +LINE600T PO
== END | disposition home or self-care (01) ==
LOC: PMGWOUND 09:12
PROVIDERS: ATTEND Emergency Medicine Undersea and Hyperbaric Medicine
DX: T81.31XD Disruption of external operation (surgical) wound, not elsewhere classified, subsequent encounter (principal); I10 Essential (primary) hypertension; F17.210 Nicotine dependence, cigarettes, uncomplicated; J44.9 Chronic obstructive pulmonary disease, unspecified; K21.9 Gastro-esophageal reflux disease without esophagitis; M19.90 Unspecified osteoarthritis, unspecified site; E66.9 Obesity, unspecified; Z68.41 Body mass index [BMI] 40.0-44.9, adult; Z90.710 Acquired absence of both cervix and uterus; Z90.49 Acquired absence of other specified parts of digestive tract; Y83.8 Other surgical procedures as the cause of abnormal reaction of the patient, or of later complication, without mention of misadventure at the time of the procedure
CPT/HCPCS: 97597

== ENCOUNTER → 2017-12-08 | Outpatient (CLI) | payer OTHER, MEDICARE ==
[2017-11-15 18:44] VITALS: BP 177/79
== END | disposition home or self-care (01) ==
LOC: PMGWOUND 09:54
PROVIDERS: ATTEND Emergency Medicine Undersea and Hyperbaric Medicine
DX: T81.31XD Disruption of external operation (surgical) wound, not elsewhere classified, subsequent encounter (principal); E11.9 Type 2 diabetes mellitus without complications; I10 Essential (primary) hypertension; F17.210 Nicotine dependence, cigarettes, uncomplicated; G47.33 Obstructive sleep apnea (adult) (pediatric); K21.9 Gastro-esophageal reflux disease without esophagitis; M19.90 Unspecified osteoarthritis, unspecified site; E66.9 Obesity, unspecified; Z68.41 Body mass index [BMI] 40.0-44.9, adult; Z90.49 Acquired absence of other specified parts of digestive tract; Z90.710 Acquired absence of both cervix and uterus; Y83.8 Other surgical procedures as the cause of abnormal reaction of the patient, or of later complication, without mention of misadventure at the time of the procedure
CPT/HCPCS: 99214; G0463

== ENCOUNTER → 2017-12-14 | Outpatient (CLI) | payer OTHER, MEDICARE ==
[2017-11-15 18:44] VITALS: BP 177/79
== END | disposition home or self-care (01) ==
LOC: PMGWOUND 10:30
PROVIDERS: ATTEND Emergency Medicine Undersea and Hyperbaric Medicine
DX: T81.31XD Disruption of external operation (surgical) wound, not elsewhere classified, subsequent encounter (principal); I10 Essential (primary) hypertension; F17.210 Nicotine dependence, cigarettes, uncomplicated; J44.9 Chronic obstructive pulmonary disease, unspecified; K21.9 Gastro-esophageal reflux disease without esophagitis; G47.33 Obstructive sleep apnea (adult) (pediatric); M19.90 Unspecified osteoarthritis, unspecified site; E66.9 Obesity, unspecified; Z68.41 Body mass index [BMI] 40.0-44.9, adult; Z90.49 Acquired absence of other specified parts of digestive tract; Z90.710 Acquired absence of both cervix and uterus; Y83.8 Other surgical procedures as the cause of abnormal reaction of the patient, or of later complication, without mention of misadventure at the time of the procedure
CPT/HCPCS: 97597; 97598

== ENCOUNTER → 2017-12-15 | Outpatient (CLI) | payer OTHER, MEDICARE ==
[2017-11-15 18:44] VITALS: BP 177/79
[~2017-12-15] MED LIST changes: +CLON0.1T PO; +GABA-586 PO; +HYDR-971 PO; +HYDR25SU18 RC; +HYDR30CR70 TP
[2017-12-15 12:52] LABS: BASO # 0.1 x10^3/uL (0.0-0.2); BASO % 1 % (0-3); EOS # 0.3 x10^3/uL (0.0-0.7); EOS % 4 % (0-3); HEMATOCRIT 35.7 % (36.0-47.0); LYMPH # 2.3 x10^3/uL (1.0-4.8); LYMPH % 25 % (24-48); MEAN CORPUSCULAR HEMOGLOBIN 28 pg (25-35); MEAN CORPUSCULAR HGB CONC 34 g/dL (31-37); MEAN CORPUSCULAR VOLUME 84 fL (79-100); MONO # 0.9 x10^3/uL (0.0-1.1); MONO % 10 % (0-9); NEUT # 5.6 x10^3uL (1.8-7.7); NEUT % 61 % (31-73); PLATELET COUNT 294 x10^3/uL (140-400); RED BLOOD COUNT 4.26 x10^6/uL (3.50-5.40); RED CELL DISTRIBUTION WIDTH 15.5 % (11.5-14.5); WHITE BLOOD COUNT 9.1 x10^3/uL (4.0-11.0)
== END | disposition home or self-care (01) ==
LOC: LAB 12:28
PROVIDERS: ATTEND Internal Medicine Infectious Disease
DX: R10.84 Generalized abdominal pain (principal)
CPT/HCPCS: 36415; 85025

== ENCOUNTER 2017-12-16 08:37 | Emergency (ER) | payer OTHER, MEDICARE ==
[~2017-12-16] VITALS: Ht 162.6 cm; Wt 103.0 kg
[~2017-12-16 08:37] MED LIST changes: -CLON0.1T PO; -GABA-586 PO; -HYDR-971 PO; -HYDR25SU18 RC; -HYDR30CR70 TP
[2017-12-16] MEDS ORDERED: OXYC-323 PO (09:06)
--- NOTE | 2017-12-16 09:06 | PHYS DOC ---
Past Medical History Past Medical History: Diabetes-Type II Additional Past Medical Histor: subdural hematoma Past Surgical History: Hysterectomy, Other Additional Past Surgical Histo: subdural hematoma, hernia repair Alcohol Use: None Drug Use: None Adult General Chief Complaint Chief Complaint: OTHER COMPLAINTS HPI HPI 67 y/o female presents with one week history of rectal pain. Known external hemorrhoids. Patient recently seen by Dr. Le (PCP) for same and started on prescription for Anusol supp and hydrocortisone cream. Unfortunately the pharmacy was out of the hydrocortisone cream and family has been unable to fill but reportedly pharmacy is to have today. Patient also with recent abdominal hernia repair with Dr. Wang (general surgery). She denies any abdominal pain. Patient falls with Dr. Wang due to abdominal wound draining with recent CT scan per [facility] review from 12/07/17. CT scan reviewed with notation of improvement of fluid collection beneath surgical wound. No signs of rectal fistula/swelling/etc noted on CT. Patient also noted to have CBC from 12/15/17 with normal WBC. Patient reports is also prescribed hydrocodone with limited relief of pain. Patient also prescribed stool softeners and reportedly is having "soft stools." Denies nausea or vomiting. Denies fever/chills. Review of Systems Review of Systems Constitutional: Denies fever or chills [] Eyes: Denies change in visual acuity, redness, or eye pain [] HENT: Denies nasal congestion or sore throat [] Respiratory: Denies cough or shortness of breath [] Cardiovascular: Denies chest pain or palpitations. GI: Denies abdominal pain, nausea, or vomiting; Reports rectal pain : Denies dysuria or hematuria [] Musculoskeletal: Denies back pain or joint pain [] Integument: Denies rash or skin lesions [] Neurologic: Denies headache, focal weakness or sensory changes [] Complete systems were reviewed and found to be within normal limits, except as documented in this note. Current Medications Current Medications Current Medications Medications (Trade) Dose Ordered Sig/Maite Start Time Stop Time Status Last Admin Dose Admin Morphine Sulfate (Morphine Sulfate) 5 mg 1X ONCE 12/16/17 09:15 12/16/17 09:16 DC 12/16/17 09:22 5 MG Allergies Allergies Allergies Coded Allergies Type Severity Reaction Last Updated Verified I S O L A T I O N *CONTACT* Allergy Unknown 11/15/17 Yes No Known Medication Allergies Allergy Unknown 11/15/17 Yes Physical Exam Physical Exam Constitutional: Well developed, well nourished, appears uncomfortable HENT: Normocephalic, atraumatic, mucous membranes moist Neck: Normal range of motion, no tenderness, supple, no meningeal signs Cardiovascular:Heart rate regular rhythm, no murmur [] Lungs & Thorax: Bilateral breath sounds clear to auscultation [] Abdomen: Soft, no tenderness, midline surgical wound noted with dark serosanguineous drainage noted on dressing Rectal: small external hemorrhoid noted to twelve o'clock position, no thrombosis noted, soft, nonbleeding, rectal exam with tenderness, stool- light brown/yellow, no gross blood appreciated, linh Rdz RN Skin: Warm, dry, no erythema, no rash. [] Extremities: No tenderness, ROM intact, no edema. [] Neurologic: Alert and oriented X 3, normal motor function, normal sensory function, no focal deficits noted. [] Psychologic: Affect normal, judgement normal, mood normal. [] Current Patient Data Vital Signs Vital Signs Date Time Temp Pulse Resp B/P (MAP) Pulse Ox O2 Delivery O2 Flow Rate FiO2 12/16/17 09:22 93 201/94 (129) 97 Room Air 12/16/17 09:22 16 12/16/17 09:06 97.6 97.6 EKG EKG [] Radiology/Procedures Radiology/Procedures [] Course & Med Decision Making Course & Med Decision Making Patient presents with history of present illness and physical exam consistent for external hemorrhoids. Patient recently prescribed suppository and cream per her PCP. Patient also with history of recent abdominal surgery and known seroma at incision site. Patient noted to have recent CT scan without any rectal findings. Patient also reports received blood work per her PCP which was available to be evaluated per [facility]. WC within normal limits. Patient without signs of thrombosed hemorrhoid. No active bleeding noted. Pain therefore addressed and patient prescribed small amount of oxycodone for worsening pain.Patient stable for discharge with outpatient follow-up with PCP/ Gen. surgery. Discussed findings and plan with patient and family, who acknowledge understanding and agreement. Dragon Disclaimer Dragon Disclaimer This electronic medical record was generated, in whole or in part, using a voice recognition dictation system. Departure Departure Impression: Primary Impression: Rectal pain Disposition: 01 HOME, SELF-CARE Condition: STABLE Referrals: CHRISTOPH LE MD (PCP) DANYA WANG MD Patient Instructions: Hemorrhoids, [id number] Scripts Oxycodone/Apap 5-325 (PERCOCET 5-325 MG TABLET) 1 Each Tablet 1 TAB PO PRN Q6HRS PRN for PAIN, #10 TAB 0 Refills Prov: FRANCES PHILLIPS DO 12/16/17 FRANCES PHILLIPS DO Dec 16, 2017 09:06
[2017-12-16 09:22] VITALS: BP 201/94
[2017-12-16] MEDS: MORPHINE SULFATE 10 MG/ML VIAL. IM ONE (09:22)
== END 2017-12-16 09:38 | disposition home or self-care (01) ==
LOC: ER 08:37
DX: K64.4 Residual hemorrhoidal skin tags (principal); K62.89 Other specified diseases of anus and rectum; E11.9 Type 2 diabetes mellitus without complications; Z90.710 Acquired absence of both cervix and uterus; Z98.890 Other specified postprocedural states; Z91.041 Radiographic dye allergy status
CPT/HCPCS: 96372; 99283; J2270

== ENCOUNTER 2017-12-20 15:59 | Inpatient (IN) | payer OTHER, MEDICARE ==
[~2017-12-20] VITALS: Ht 162.6 cm; Wt 96.6 kg
[2017-12-20 16:45] VITALS: BP 175/64
[2017-12-20] MEDS ORDERED: IV NORMAL SALINE 1000ML BAG 1,000 ML IV SCH (17:30)
[2017-12-20] MEDS ORDERED: PIPERACILLIN/TAZOBACTAM 3.375 GM in IV NORMAL SALINE 50ML 50 ML IV ONE (18:00)
[2017-12-20] MEDS ORDERED: VANCOMYCIN 1.75 GM in IV NORMAL SALINE 500ML BAG 500 ML IV ONE (18:00)
[2017-12-20] MEDS: LABETALOL 20 MG/4 ML DISP.SYRIN. IVP PRN (18:13)
[2017-12-20] MEDS ORDERED: MECLIZINE HCL 12.5 MG TABLET. PO PRN (18:15)
[2017-12-20] MEDS ORDERED: ALBUTEROL SULFATE 2.5 MG/3 ML NEBU. NEB PRN (18:15)
[2017-12-20] MEDS ORDERED: NON FORMULARY ITEM (Albuterol Sulfate (Ventolin Hfa Inhaler) 18 GM) INH PRN (18:15)
[2017-12-20] MEDS: HYDROcodone/APAP 5/325MG 1 TAB TABLET PO PRN (18:17)
[2017-12-20 18:57] LABS: BASO # 0.1 x10^3/uL (0.0-0.2); BASO % 1 % (0-3); EOS # 0.3 x10^3/uL (0.0-0.7); EOS % 3 % (0-3); HEMATOCRIT 36.1 % (36.0-47.0); HEMOGLOBIN 11.8 g/dL (12.0-15.5); LYMPH # 2.1 x10^3/uL (1.0-4.8); LYMPH % 22 % (24-48); MEAN CORPUSCULAR HEMOGLOBIN 28 pg (25-35); MEAN CORPUSCULAR HGB CONC 33 g/dL (31-37); MEAN CORPUSCULAR VOLUME 84 fL (79-100); MONO % 10 % (0-9); NEUT # 6.4 x10^3uL (1.8-7.7); NEUT % 64 % (31-73); PLATELET COUNT 289 x10^3/uL (140-400); RED BLOOD COUNT 4.29 x10^6/uL (3.50-5.40); RED CELL DISTRIBUTION WIDTH 15.8 % (11.5-14.5); WHITE BLOOD COUNT 9.8 x10^3/uL (4.0-11.0)
[2017-12-20 19:09] LABS: CALCIUM 8.9 mg/dL (8.5-10.1); CREATININE 1.6 mg/dL (0.6-1.0); GFR 32.2; POTASSIUM 3.2 mmol/L (3.5-5.1)
[2017-12-20 19:14] LABS: ALBUMIN 2.5 g/dL (3.4-5.0); ALBUMIN/GLOBULIN RATIO 0.5 (1.0-1.7); TOTAL BILIRUBIN 0.8 mg/dL (0.2-1.0); TOTAL PROTEIN 7.2 g/dL (6.4-8.2)
[2017-12-20] MEDS: HYDROCORTISONE 2.5% RECTAL CREAM 30GM TUBE. RC PRN (19:29)
[2017-12-20 19:37] VITALS: BP 125/53
[2017-12-20] MEDS: VANCOMYCIN PER PHARMACY MC PRN (19:37)
[2017-12-20] MEDS ORDERED: POTASSIUM CHLORIDE 20 MEQ TABLET.ER. PO ONE (22:30)
[2017-12-20 23:27] VITALS: BP 132/57
[2017-12-20 23:59] LABS: BILIRUBIN,URINE NEGATIVE (NEG); CLARITY,URINE CLEAR; COLOR,URINE YELLOW; NITRITE,URINE NEGATIVE (NEG); PROTEIN,URINE NEGATIVE (NEG-TRACE); UROBILINOGEN,URINE 0.2 mg/dL (0.2 mg/dL)
[2017-12-21 00:12] LABS: AMORPHOUS SEDIMENT,UR PRESENT /HPF; BACTERIA,URINE 0 /HPF (0-FEW); GRANULAR CASTS,URINE OCCASIONAL /HPF; HYALINE CASTS, URINE OCCASIONAL /HPF; RBC,URINE 0 /HPF (0-2); SQUAMOUS EPITHELIAL CELL,UR MOD /LPF; YEAST,URINE PRESENT /HPF
[2017-12-21] MEDS: HYDROcodone/APAP 5/325MG 1 TAB TABLET PO PRN ×3 (00:32→18:49)
[2017-12-21] MEDS: PIPERACILLIN/TAZOBACTAM 3.375 GM in IV NORMAL SALINE 50ML 50 ML IV SCH ×4 (00:34→18:49)
[2017-12-21] MEDS: POTASSIUM CL 30MEQ D5-0.45NACL 1,000 ML IV SCH ×3 (00:34→20:51)
[2017-12-21] MEDS ORDERED: CLON0.1T PO (01:36)
[2017-12-21] MEDS ORDERED: HYDR25SU18 RC (01:36)
[2017-12-21] MEDS ORDERED: GABA-586 PO (01:36)
[2017-12-21] MEDS ORDERED: HYDR30CR70 TP (01:36)
[2017-12-21] MEDS ORDERED: HYDR-971 PO (01:36)
[2017-12-21 03:55] VITALS: BP 157/72
[2017-12-21 06:07] LABS: BASO # 0.1 x10^3/uL (0.0-0.2); BASO % 1 % (0-3); EOS # 0.3 x10^3/uL (0.0-0.7); EOS % 4 % (0-3); HEMATOCRIT 34.1 % (36.0-47.0); LYMPH # 1.2 x10^3/uL (1.0-4.8); LYMPH % 17 % (24-48); MEAN CORPUSCULAR HEMOGLOBIN 28 pg (25-35); MEAN CORPUSCULAR HGB CONC 32 g/dL (31-37); MEAN CORPUSCULAR VOLUME 85 fL (79-100); MONO # 0.8 x10^3/uL (0.0-1.1); MONO % 11 % (0-9); NEUT # 4.9 x10^3uL (1.8-7.7); NEUT % 68 % (31-73); PLATELET COUNT 280 x10^3/uL (140-400); RED BLOOD COUNT 4.02 x10^6/uL (3.50-5.40); RED CELL DISTRIBUTION WIDTH 15.9 % (11.5-14.5); WHITE BLOOD COUNT 7.3 x10^3/uL (4.0-11.0)
[2017-12-21 06:12] LABS: CALCIUM 8.8 mg/dL (8.5-10.1); CREATININE 1.6 mg/dL (0.6-1.0); GFR 32.2; POTASSIUM 3.6 mmol/L (3.5-5.1)
[2017-12-21 07:00] VITALS: BP 154/64
[2017-12-21] MEDS: MULTIVITAMIN with MINERAL TABLET. PO SCH (08:46)
[2017-12-21] MEDS: CALCIUM CARBONATE 500 MG TABLET PO SCH (08:46)
[2017-12-21] MEDS: BIMATOPROST OD SCH ×2 (08:47→21:00)
[2017-12-21] MEDS: BRIMONIDINE TARTRATE OD SCH ×2 (08:48→21:00)
[2017-12-21] MEDS: TIMOLOL OD SCH ×2 (08:48→21:00)
[2017-12-21] MEDS: BRINZOLAMIDE OD SCH ×3 (08:49→21:00)
--- NOTE | 2017-12-21 08:54 | PDOC2 ---
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 Has been following in the wound clinic and with infectious disease. Wound has continued to enlarge, more eschar--despite abx and wound treatment. Admitted for ongoing care Past Medical History CENTRAL NERVOUS SYSTEM: Other GI: GERD Hepatobiliary: No pertinent hx Psych: No pertinent hx Musculoskeletal: Osteoarthritis Rheumatologic: No pertinent hx Infectious disease: No pertinent hx Renal/: No pertinent hx Endocrine: Diabetes Past Surgical History Past Surgical History: Appendectomy, Cholecystectomy, Other Family History Family History: No Significant Social History ALCOHOL: rare Lives: with Family Current Medications Current Medications Current Medications Acetaminophen/ Hydrocodone Bitart (Lortab 5/325) 1 tab PRN Q4HRS PRN PO mild PAIN; Start 12/20/17 at 17:30 Acetaminophen/ Hydrocodone Bitart (Lortab 5/325) 2 tab PRN Q4HRS PRN PO MODERATE-SEVERE PAIN Last administered on 12/21/17at 00:32; Start 12/20/17 at 17 :30 Piperacillin Sod/ Tazobactam Sod 3.375 gm/Sodium Chloride 50 ml @ 100 mls/hr Q6HRS IV Last administered on 12/21/17at 06:07; Start 12/21/17 at 00:00 Vancomycin HCl (Vanco Per Pharmacy) 1 each DAILY PRN MC SEE COMMENTS Last administered on 12/20/17at 19:37; Start 12/20/17 at 17:30 Hydrocortisone (Proctosol-Hc) 1 laly PRN DAILY PRN RC PAIN Last administered on 12/20/17at 19:29; Start 12/20/17 at 17:30 Sodium Chloride 1,000 ml @ 75 mls/hr [id number] IV Last administered on at 18:13; Start 12/20/17 at 17:30; Stop 12/20/17 at 22:27; Status DC Labetalol HCl (Normodyne Iv Push) 20 mg PRN Q2HR PRN IVP HYPERTENSION, SEE COMMENTS Last administered on 12/20/17at 18:13; Start 12/20/17 at 17:45 Vancomycin HCl 1.75 gm/Sodium Chloride 500 ml @ 250 mls/hr 1X ONCE IV Last administered on 12/20/17at 18:00; Start 12/20/17 at 18:00; Stop 12/20/17 at 19:59 ; Status DC Piperacillin Sod/ Tazobactam Sod 3.375 gm/Sodium Chloride 50 ml @ 100 mls/hr 1X ONCE IV Last administered on 12/20/17at 18:17; Start 12/20/17 at 18:00; Stop 12/20/17 at 18:29; Status DC Non-Formulary Medication (Albuterol Sulfate (Ventolin Hfa Inhaler)) 18 gm PRN PRN INH SHORTNESS OF BREATH; Start 12/20/17 at 18:15; Status UNV Calcium Carbonate/ Glycine (Oscal) 500 mg DAILYWBKFT PO ; Start 12/21/17 at 08: 00 Meclizine HCl (Antivert) 25 mg PRN TID PRN PO DIZZINESS; Start 12/20/17 at 18: 15 Multivitamins (Thera M Plus) 1 tab DAILY PO ; Start 12/21/17 at 09:00 Albuterol Sulfate (Ventolin Neb Soln) 2.5 mg PRN Q6HRS PRN NEB SHORTNESS OF BREATH; Start 12/20/17 at 18:15 Influenza Virus Vaccine (Afluria Trivalent [id number] Syringe) 0.5 ml ONCE ONCE VAX IM ; Start 12/21/17 at 09:00; Stop 12/21/17 at 09:01 Vancomycin HCl 1.5 gm/Sodium Chloride 500 ml @ 250 mls/hr Q24H IV ; Start 12/29 at 18:00 Vancomycin HCl (Vancomycin Trough Level) 1 each 1X ONCE MC ; Start 12/22/17 at 17:30; Stop 12/22/17 at 17:31 Amitriptyline HCl (Elavil) 10 mg QHS PO ; Start 12/21/17 at 21:00 Oxycodone/ Acetaminophen (Percocet 5/325) 1 tab PRN Q6HRS PRN PO PAIN; Start 12/20/17 at 22:30 Non-Formulary Medication (Bimatoprost (Lumigan)) 1 DROP BID OD ; Start at 09:00 Non-Formulary Medication (Brimonidine Tartrate/Timolol (Combigan Eye Drops)) 1 DROP BID OD ; Start 12/21/17 at 09:00 Non-Formulary Medication (Brinzolamide (Azopt)) 1 drop BID OD ; Start 12/21/17 at 09:00; Status UNV Potassium Chloride/Dextrose/ Sod Cl 1,000 ml @ 75 mls/hr [id number] IV Last administered on 12/21/17at 00:34; Start 12/20/17 at 22:30 Potassium Chloride (Klor-Con) 40 meq 1X ONCE PO Last administered on at 00:33; Start 12/20/17 at 22:30; Stop 12/20/17 at 22:31; Status DC Active Scripts Active Percocet 5-325 Mg Tablet (Oxycodone/Acetaminophen) 1 Each Tablet 1 Tab PO PRN Q6HRS PRN Zyvox (Linezolid) 600 Mg Tablet 600 Mg PO BID 14 Days Reported Proctocream-Hc (Hydrocortisone) 30 Gm Cream..g. 1 Laly TP BID Gabapentin 300 Mg Capsule 300 Mg PO TID Anusol-Hc (Hydrocortisone Acetate) 25 Mg Supp.rect 1 Supp RC BID [place] 5-325 Tablet (Acetaminophen/Hydrocodone Bitart) 1 Each Tablet 1 Tab PO PRN Q6HRS PRN Clonidine Hcl 0.1 Mg Tablet 1 Tab PO PRN TID PRN Azopt (Brinzolamide) 10 Ml Drops.susp 1 Drop OD BID Amitriptyline Hcl 10 Mg Tablet 10 Mg PO QHS Calcium (Calcium Carbonate) 600 Mg Tablet 600 Mg PO DAILY Multivitamins (Multivitamin) 1 Each Capsule 1 Each PO DAILY Meclizine Hcl 25 Mg Tablet 1 Tab PO PRN TID PRN Ventolin Hfa Inhaler (Albuterol Sulfate) 18 Gm Hfa.aer.ad 18 Gm INH PRN PRN Lumigan (Bimatoprost) 2.5 Ml Drops 2.5 Ml OD BID Combigan Eye Drops (Brimonidine Tartrate/Timolol) 5 Ml Drops 5 Ml OD BID Allergies Allergies: Coded Allergies: I S O L A T I O N *CONTACT* (Verified Allergy, Unknown, 11/15/17) mrsa No Known Medication Allergies (Verified Allergy, Unknown, 11/15/17) ROS General: No: Chills, Other (fevers ) PSYCHOLOGICAL ROS: No: Anxiety, Depression Eyes: No Blurry vision, No Double vision HEENT: No: Heacaches, Sore Throat Hematological and Lymphatic: No: Bleeding Problems Respiratory: No: Cough, Shortness of breath Cardiovascular: No Chest Pain, No Palpitations Gastrointestinal: No Nausea, No Abdominal Pain Genitourinary: No Dysuria, No Hematuria Musculoskeletal: No Joint Pain, No Muscle Pain Neurological: No Confusion, No Numbness/Tingling Skin: Yes Other (see hpi) Physical Exam General: Alert, Oriented X3, Cooperative, No acute distress HEENT: PERRLA, Mucous membr. moist/pink Lungs: Clear to auscultation, Normal air movement Heart: Regular rate, Normal S1, Normal S2, No murmurs Abdomen: Soft, Other (large wound with packing in place, noted slough and eschar to large wound defect ) Extremities: No clubbing, No cyanosis Neuro: Normal speech, Sensation intact Psych/Mental Status: Mental status NL, Mood NL MUSCULOSKELETAL: No deformity, No swelling Vitals VITALS Vital Signs Date Time Temp Pulse Resp B/P (MAP) Pulse Ox O2 Delivery O2 Flow Rate FiO2 12/21/17 07:00 98.3 74 18 154/64 (94) 98 Room Air 98.3 Labs Labs Laboratory Tests Test 12/20/17 18:50 12/20/17 23:50 12/21/17 05:10 White Blood Count 9.8 x10^3/uL (4.0-11.0) 7.3 x10^3/uL (4.0-11.0) Red Blood Count 4.29 x10^6/uL (3.50-5.40) 4.02 x10^6/uL (3.50-5.40) Hemoglobin 11.8 g/dL (12.0-15.5) 11.0 g/dL (12.0-15.5) Hematocrit 36.1 % (36.0-47.0) 34.1 % (36.0-47.0) Mean Corpuscular Volume 84 fL (79-100) 85 fL (79-100) Mean Corpuscular Hemoglobin 28 pg (25-35) 28 pg (25-35) Mean Corpuscular Hemoglobin Concent 33 g/dL (31-37) 32 g/dL (31-37) Red Cell Distribution Width 15.8 % (11.5-14.5) 15.9 % (11.5-14.5) Platelet Count 289 x10^3/uL (140-400) 280 x10^3/uL (140-400) Neutrophils (%) (Auto) 64 % (31-73) 68 % (31-73) Lymphocytes (%) (Auto) 22 % (24-48) 17 % (24-48) Monocytes (%) (Auto) 10 % (0-9) 11 % (0-9) Eosinophils (%) (Auto) 3 % (0-3) 4 % (0-3) Basophils (%) (Auto) 1 % (0-3) 1 % (0-3) Neutrophils # (Auto) 6.4 x10^3uL (1.8-7.7) 4.9 x10^3uL (1.8-7.7) Lymphocytes # (Auto) 2.1 x10^3/uL (1.0-4.8) 1.2 x10^3/uL (1.0-4.8) Monocytes # (Auto) 1.0 x10^3/uL (0.0-1.1) 0.8 x10^3/uL (0.0-1.1) Eosinophils # (Auto) 0.3 x10^3/uL (0.0-0.7) 0.3 x10^3/uL (0.0-0.7) Basophils # (Auto) 0.1 x10^3/uL (0.0-0.2) 0.1 x10^3/uL (0.0-0.2) Sodium Level 150 mmol/L (136-145) 152 mmol/L (136-145) Potassium Level 3.2 mmol/L (3.5-5.1) 3.6 mmol/L (3.5-5.1) Chloride Level 114 mmol/L (98-107) 119 mmol/L (98-107) Carbon Dioxide Level 20 mmol/L (21-32) 20 mmol/L (21-32) Anion Gap 16 (6-14) 13 (6-14) Blood Urea Nitrogen 32 mg/dL (7-20) 29 mg/dL (7-20) Creatinine 1.6 mg/dL (0.6-1.0) 1.6 mg/dL (0.6-1.0) Estimated GFR (Cockcroft-Gault) 32.2 32.2 BUN/Creatinine Ratio 20 (6-20) Glucose Level 98 mg/dL (70-99) 100 mg/dL (70-99) Lactic Acid Level 1.0 mmol/L (0.4-2.0) Calcium Level 8.9 mg/dL (8.5-10.1) 8.8 mg/dL (8.5-10.1) Total Bilirubin 0.8 mg/dL (0.2-1.0) Aspartate Amino Transf (AST/SGOT) 14 U/L (15-37) Alanine Aminotransferase (ALT/SGPT) 27 U/L (14-59) Alkaline Phosphatase 147 U/L (46-116) Total Protein 7.2 g/dL (6.4-8.2) Albumin 2.5 g/dL (3.4-5.0) Albumin/Globulin Ratio 0.5 (1.0-1.7) Urine Collection Type Unknown Urine Color Yellow Urine Clarity Clear Urine pH 5.0 Urine Specific Hailey 1.015 Urine Protein Negative mg/dL (NEG-TRACE) Urine Glucose (UA) Negative mg/dL (NEG) Urine Ketones (Stick) Negative mg/dL (NEG) Urine Blood Negative (NEG) Urine Nitrite Negative (NEG) Urine Bilirubin Negative (NEG) Urine Urobilinogen Dipstick 0.2 mg/dL (0.2 mg/dL) Urine Leukocyte Esterase Negative (NEG) Urine RBC 0 /HPF (0-2) Urine WBC 1-4 /HPF (0-4) Urine Squamous Epithelial Cells Mod /LPF Urine Amorphous Sediment Present /HPF Urine Bacteria 0 /HPF (0-FEW) Urine Hyaline Casts Occasional /HPF Urine Granular Casts Occasional /HPF Urine Mucus Slight /LPF Urine Yeast Present /HPF Laboratory Tests Test 12/20/17 18:50 12/20/17 23:50 12/21/17 05:10 White Blood Count 9.8 x10^3/uL (4.0-11.0) 7.3 x10^3/uL (4.0-11.0) Red Blood Count 4.29 x10^6/uL (3.50-5.40) 4.02 x10^6/uL (3.50-5.40) Hemoglobin 11.8 g/dL (12.0-15.5) 11.0 g/dL (12.0-15.5) Hematocrit 36.1 % (36.0-47.0) 34.1 % (36.0-47.0) Mean Corpuscular Volume 84 fL (79-100) 85 fL (79-100) Mean Corpuscular Hemoglobin 28 pg (25-35) 28 pg (25-35) Mean Corpuscular Hemoglobin Concent 33 g/dL (31-37) 32 g/dL (31-37) Red Cell Distribution Width 15.8 % (11.5-14.5) 15.9 % (11.5-14.5) Platelet Count 289 x10^3/uL (140-400) 280 x10^3/uL (140-400) Neutrophils (%) (Auto) 64 % (31-73) 68 % (31-73) Lymphocytes (%) (Auto) 22 % (24-48) 17 % (24-48) Monocytes (%) (Auto) 10 % (0-9) 11 % (0-9) Eosinophils (%) (Auto) 3 % (0-3) 4 % (0-3) Basophils (%) (Auto) 1 % (0-3) 1 % (0-3) Neutrophils # (Auto) 6.4 x10^3uL (1.8-7.7) 4.9 x10^3uL (1.8-7.7) Lymphocytes # (Auto) 2.1 x10^3/uL (1.0-4.8) 1.2 x10^3/uL (1.0-4.8) Monocytes # (Auto) 1.0 x10^3/uL (0.0-1.1) 0.8 x10^3/uL (0.0-1.1) Eosinophils # (Auto) 0.3 x10^3/uL (0.0-0.7) 0.3 x10^3/uL (0.0-0.7) Basophils # (Auto) 0.1 x10^3/uL (0.0-0.2) 0.1 x10^3/uL (0.0-0.2) Sodium Level 150 mmol/L (136-145) 152 mmol/L (136-145) Potassium Level 3.2 mmol/L (3.5-5.1) 3.6 mmol/L (3.5-5.1) Chloride Level 114 mmol/L (98-107) 119 mmol/L (98-107) Carbon Dioxide Level 20 mmol/L (21-32) 20 mmol/L (21-32) Anion Gap 16 (6-14) 13 (6-14) Blood Urea Nitrogen 32 mg/dL (7-20) 29 mg/dL (7-20) Creatinine 1.6 mg/dL (0.6-1.0) 1.6 mg/dL (0.6-1.0) Estimated GFR (Cockcroft-Gault) 32.2 32.2 BUN/Creatinine Ratio 20 (6-20) Glucose Level 98 mg/dL (70-99) 100 mg/dL (70-99) Lactic Acid Level 1.0 mmol/L (0.4-2.0) Calcium Level 8.9 mg/dL (8.5-10.1) 8.8 mg/dL (8.5-10.1) Total Bilirubin 0.8 mg/dL (0.2-1.0) Aspartate Amino Transf (AST/SGOT) 14 U/L (15-37) Alanine Aminotransferase (ALT/SGPT) 27 U/L (14-59) Alkaline Phosphatase 147 U/L (46-116) Total Protein 7.2 g/dL (6.4-8.2) Albumin 2.5 g/dL (3.4-5.0) Albumin/Globulin Ratio 0.5 (1.0-1.7) Urine Collection Type Unknown Urine Color Yellow Urine Clarity Clear Urine pH 5.0 Urine Specific Hailey 1.015 Urine Protein Negative mg/dL (NEG-TRACE) Urine Glucose (UA) Negative mg/dL (NEG) Urine Ketones (Stick) Negative mg/dL (NEG) Urine Blood Negative (NEG) Urine Nitrite Negative (NEG) Urine Bilirubin Negative (NEG) Urine Urobilinogen Dipstick 0.2 mg/dL (0.2 mg/dL) Urine Leukocyte Esterase Negative (NEG) Urine RBC 0 /HPF (0-2) Urine WBC 1-4 /HPF (0-4) Urine Squamous Epithelial Cells Mod /LPF Urine Amorphous Sediment Present /HPF Urine Bacteria 0 /HPF (0-FEW) Urine Hyaline Casts Occasional /HPF Urine Granular Casts Occasional /HPF Urine Mucus Slight /LPF Urine Yeast Present /HPF Assessment/Plan Assessment/Plan wound abx tentatively planned for debridement with Dr Wang tomorrow DANYA WANG MD 12/21/17 1350: CONSULT Assessment/Plan Assessment/Plan Pt seen and examined. Agree with Rohith's note Pt without significant abd pain, wyatt PO abd soft, central wound open, LLQ abd wall wound with necrosis electrolytes concerning, as well as evidence of dehydration would favor correction of this prior to surgical debridement and possible mesh removal agree with abx and wound care currently. Thanks for consult! LUDMILA BROOKS APRN Dec 21, 2017 08:54 DANYA WANG MD Dec 21, 2017 13:50
[2017-12-21] MEDS ORDERED: DEXTROSE 50% 25 GM / 50ML DISP.SYRIN. IV PRN (10:00)
--- NOTE | 2017-12-21 10:11 | PDOC ---
Provider Note Provider Note Pt seen.H&P dictated. #[id number]. CHRISTOPH LE MD Dec 21, 2017 10:11
[2017-12-21] MEDS: HYDROCORTISONE 2.5% RECTAL CREAM 30GM TUBE. RC PRN (10:42)
--- NOTE | 2017-12-21 10:59 | HP ---
ADMIT DATE: 12/20/2017 PATIENT LOCATION: 422 REASON FOR ADMISSION TO THE HOSPITAL: Abdominal wall wound infection with cellulitis. HISTORY OF PRESENT ILLNESS: The patient is a 67-year-old female. The patient had a ventral hernia surgery done approximately 2 months ago. A month ago the patient was admitted with complications with infection, seroma and cellulitis. The patient was treated with IV antibiotics, was in the hospital for a week and discharged with oral antibiotics and she has developed a wound dehiscence and she has [facility]. Seen infectious disease in the office, the patient has developed a new area of necrotic below the wound dehiscence, which is guiding lot of drainage, pain and redness. The patient was admitted to the hospital for further IV antibiotics and possible surgical debridement. PAST MEDICAL HISTORY: She has history of cerebrovascular accident from aneurysm and she has dementia from the cognitive deficit. History of borderline diabetes, COPD, hypertension. PAST SURGICAL HISTORY: Hysterectomy, surgery done for subdural hematoma and also hernia repair. ALLERGIES: No known drug allergies. MEDICATIONS: She is on albuterol 2 puffs 4 times daily, amitriptyline 10 mg daily, eyedrops for glaucoma, calcium, ibuprofen, meclizine. SOCIAL HISTORY: Smokes 1 pack for 30 years, still smokes. Denies alcohol. Lives with her . She ambulates holding on to the cesar. FAMILY HISTORY: Not significant except hypertension. REVIEW OF SYSTEMS: CARDIAC: No chest pain. GASTROINTESTINAL: No nausea, vomiting, constipation. Low grade fever. Lot of drainage, pain in the abdominal wall. PHYSICAL EXAMINATION: VITAL SIGNS: At the time of admission shows temperature 98, pulse 90, respirations 20, blood pressure 175/60, 96 on room air. HEENT: Head is atraumatic. Pupils equal. Oral cavity: No congestion. NECK: Supple. Thyroid not enlarged. JVD not elevated. CHEST: Symmetrical. CARDIOVASCULAR: S1, S2. LUNGS: Clear. ABDOMEN: The patient has a scar in the mid abdomen. There was an upper area, which is 1 inch in size would dehiscence and she has a new area which is at least 2.5 inches in size with skin necrosis and eschar and drainage, has lot of tenderness and redness. Please refer to the wound care pictures and note. EXTERNAL GENITALIA: No Fuentes. RECTAL: Deferred. EXTREMITIES: No calf tenderness, no edema. NEUROLOGIC: Moving all extremities. No focal deficits noted. LABORATORY DATA: Shows a white count of 10, hemoglobin 12, platelets 289. Electrolytes show sodium 150, potassium 3.2, chloride 114, bicarbonate 20, anion gap 16, BUN 32, creatinine 1.6. Lactic acid 1.0. LFTs were normal. Urine was negative. FINAL IMPRESSION: 1. Abdominal wall infection with skin necrosis, drainage and infection. 2. Recent wound dehiscence in the upper part of the incision. 3. Recent ventral hernia repair 2 months ago. 4. History of cerebrovascular accident with cognitive deficit. 5. Chronic obstructive pulmonary disease. 6. Hypertension. 7. Hypernatremia. 8. Hypokalemia. PLAN: At this time, admitted to the hospital. Wound cultures, blood cultures, IV antibiotics, vancomycin and Zosyn. ID is consulted. Surgical consult, probably the patient may need surgical debridement. Also wound care consult. We would need a wound VAC down the road. Also correct sodium. Replace potassium. Give D5 half normal to correct the sodium imbalance. DVT prevention. CHRISTOPH LE MD DR: PURVI/genesis JOB#: [id number] / [id number]
[2017-12-21 11:00] VITALS: BP 148/77
[2017-12-21] MEDS: INSULIN LISPRO 300 UNITS/3 ML INSULN.PEN. SQ SCH ×2 (12:00→17:00)
--- NOTE | 2017-12-21 12:05 | PDOC ---
Provider Note Provider Note Pt seen ID consult dictated [id number] LAURITA LAURENT MD Dec 21, 2017 12:05
[2017-12-21] MEDS ORDERED: HYDROCORTISONE 2.5% RECTAL CREAM 30GM TUBE. RC PRN (12:30)
[2017-12-21] MEDS: ASCORBIC ACID 500 MG TABLET PO SCH ×2 (14:29→20:56)
[2017-12-21] MEDS: FLUCONAZOLE 100 MG TABLET. PO SCH (14:29)
[2017-12-21] MEDS: VANCOMYCIN PER PHARMACY MC PRN (15:47)
[2017-12-21] MEDS ORDERED: VANCOMYCIN 1.5 GM in IV NORMAL SALINE 500ML BAG 500 ML IV SCH (18:00)
--- NOTE | 2017-12-21 18:44 | CONS ---
DATE OF CONSULTATION: 12/21/2017 REFERRING PHYSICIAN: Dr. Serna. REASON FOR CONSULTATION: Abdominal wall infection. HISTORY OF PRESENT ILLNESS: Pt is well known to our team from last admission. A 67-year-old female who underwent ventral hernia repair in 09/2017, was admitted in October with worsening abdominal discomfort and drainage. The patient had been treated with antibiotics for MRSA and MSSA abdominal wall infection. The patient returned yesterday after being seen in Infectious Disease outpatient clinic with worsening abdominal wound with eschar and necrosis worsening drainage, decreased apetite by Dr Mayer.. The patient has been started on empiric IV vancomycin and Zosyn. Surgery consult has been requested. She complains of abdominal pain and continuous drainage. The patient has diarrhea, The patient has history of some cognitive delay secondary to prior brain injury from subdural hematoma. REVIEW OF SYSTEMS: The patient denies any fevers, chills, otherwise above in HPI. CURRENT MEDICATIONS: IV vancomycin and Zosyn. Other medications reviewed in medication list. ALLERGIES: No known drug allergies. SOCIAL HISTORY: Quit smoking. No alcohol, no IV drug use. Lives with her . PAST MEDICAL HISTORY: Diabetes, COPD, hernia surgery with mesh placement 2 years ago with repeat hernia surgery with mesh placement in 09/2017, still in place; history of enterocutaneous fistula, status post surgery in 08/2016 with small bowel resection, removal of mesh, ventral incisional hernia repair and debridement of abdominal wall; history of recent hospitalization for abdominal wound infection with dehiscence, no surgery done. History of subdural hematoma with mild cognitive dysfunction. PHYSICAL EXAMINATION: VITAL SIGNS: Temperature 98.0, pulse 64, respiratory rate 24, blood pressure 148/77, oxygen saturation 97% on room air. GENERAL: Alert, oriented x 3 female lying in bed, comfortable, in no acute distress. HEENT: Normocephalic, atraumatic, anicteric. No thrush. NECK: Supple. LUNGS: Clear bilaterally. HEART: S1, S2, no murmurs. ABDOMEN: Wound dressing in place, taken down. Large wound defect with eschar and sloughing. Mild tenderness present, mildly distended. EXTREMITIES: No edema, no cyanosis. NEUROLOGIC: Alert, oriented, awake, cooperative. PSYCHIATRIC: Cooperative. DERMATOLOGIC: As above in abdomen, otherwise no generalized rash. LABORATORY DATA: Last abdominal CT was 12/07/2017, which shows fluid collection identified in the anterior abdominal wall in the subcutaneous region measuring 2.1 x 15.1 x 15.1 cm, which has decreased compared to prior exam, now containing fluid and multiple foci of air within this, a portion of fluid collection which extends to the anterior surface of the abdominal wall near the skin. Differential includes postoperative seroma, hematoma or abscess. An 8 mm density identified in the left kidney could represent hyperdense cyst or solid nodule. A 7.5 mm ground-glass nodule identified in the right middle lobe of the lung; followup CT in 3-6 months. Hepatic steatosis. IMPRESSION: 1. Progressive Abdominal wall infection with eschar, necrosis, drainage and failed outpatient p.o. antibiotics in Nov with zyvox followed by doxycycline. 2. History of hernia repair with mesh placement in 09/2017. 3. History of wound infection with dehiscence, treated in 10/2017. 4. Diabetes. 5. History of subdural hematoma with mild cognitive dysfunction. 6. History of previous exploratory laparotomy for small bowel resection, removal of mesh, ventral incisional hernia repair and debridement of abdominal wall, 08/10/2016. 7. History of tobaccoism, quit. 8. Status post hysterectomy. 9. Chronic obstructive pulmonary disease. 10. CKD 11. Diarrhea RECOMMENDATIONS: 1. Continue empiric IV vancomycin and Zosyn. Monitor renal functions closely 2. Follow up cultures and lab in a.m. 3. Follow up C. diff PCR. 4. Follow up blood culture results. 5. General surgery consulted, plans per pt are for I and D Due to presence of mesh and history of methicillin-resistant Staphylococcus aureus, antibiotics alone may not be optimal. 6. will empiric Diflucan. 7. Continue local wound care Thank you, Dr. Serna, for consulting Infectious Disease to participate in this patient's care. If you have any questions, do not hesitate to contact me. LAURITA LAURENT MD DR: EVELYNE/genesis JOB#: [id number] / [id number] KATHRIN
[2017-12-21 19:25] VITALS: BP 159/74
[2017-12-21] MEDS: LACTOBACILLUS RHAMNOSUS GG 1 CAPSULE. PO SCH (20:56)
[2017-12-21] MEDS: AMITRIPTYLINE HCL 10 MG TABLET. PO SCH (20:56)
[2017-12-21] MEDS ORDERED: BRIMONIDINE 0.2% OPHTH SOLUTION 5ML BOTTLE. OD SCH (21:00)
[2017-12-21] MEDS ORDERED: TIMOLOL 0.5% OPHTH SOLUTION 5ML BOTTLE. OD SCH (21:00)
[2017-12-21 23:35] VITALS: BP 152/61
[2017-12-22] MEDS: PIPERACILLIN/TAZOBACTAM 3.375 GM in IV NORMAL SALINE 50ML 50 ML IV SCH ×5 (00:29→23:28)
[2017-12-22 03:20] VITALS: BP 180/82
[2017-12-22] MEDS: HYDROcodone/APAP 5/325MG 1 TAB TABLET PO PRN ×3 (06:03→21:29)
[2017-12-22 07:00] VITALS: BP 125/61
[2017-12-22] MEDS: INSULIN LISPRO 300 UNITS/3 ML INSULN.PEN. SQ SCH ×3 (08:00→17:00)
[2017-12-22] MEDS: CALCIUM CARBONATE 500 MG TABLET PO SCH (08:00)
--- NOTE | 2017-12-22 08:37 | PDOC ---
Infectious Disease Note ROS: ROS Negative except for above. Vital Signs: Vital Signs Vital Signs Date Time Temp Pulse Resp B/P (MAP) Pulse Ox O2 Delivery O2 Flow Rate FiO2 12/22/17 07:31 Room Air 12/22/17 07:00 98.4 85 18 125/61 (82) 97 98.4 Medications: Inpatient Meds: Current Medications Medications (Trade) Dose Ordered Sig/Maite Start Time Stop Time Status Last Admin Dose Admin Acetaminophen/ Hydrocodone Bitart (Lortab 5/325) 2 tab PRN Q4HRS PRN 12/20/17 17:30 12/22/17 06:03 2 TAB Albuterol Sulfate (Ventolin Neb Soln) 2.5 mg PRN Q6HRS PRN 12/20/17 18:15 Amitriptyline HCl (Elavil) 10 mg QHS 12/21/17 21:00 12/21/17 20:56 10 MG Ascorbic Acid (Vitamin C) 500 mg BID 12/21/17 13:00 12/21/17 20:56 500 MG Brimonidine Tartrate (Alphagan) 1 drop BID 12/21/17 21:00 Cancel Calcium Carbonate/ Glycine (Oscal) 500 mg [id number] 12/21/17 08:00 12/21/17 08:46 500 MG Dextrose (Dextrose 50%-Water Syringe) 12.5 gm PRN Q15MIN PRN 12/21/17 10:00 Fluconazole (Diflucan) 100 mg DAILY 12/21/17 13:00 12/21/17 14:29 100 MG Hydrocortisone (Proctosol-Hc) 1 grant PRN TID PRN 12/21/17 12:30 UNV Influenza Virus Vaccine (Afluria Trivalent [id number] Syringe) 0.5 ml ONCE ONCE 12/21/17 09:00 12/21/17 11:04 DC Insulin Human Lispro (HumaLOG) 0-5 UNITS TIDWMEALS 12/21/17 12:00 Labetalol HCl (Normodyne Iv Push) 20 mg PRN Q2HR PRN 12/20/17 17:45 12/20/17 18:13 20 MG Lactobacillus Rhamnosus (Culturelle) 1 cap BID 12/21/17 21:00 12/21/17 20:56 1 CAP Meclizine HCl (Antivert) 25 mg PRN TID PRN 12/20/17 18:15 Multivitamins (Thera M Plus) 1 tab DAILY 12/21/17 09:00 12/21/17 08:46 1 TAB Non-Formulary Medication (Albuterol Sulfate (Ventolin Hfa Inhaler)) 18 gm PRN PRN 12/20/17 18:15 UNV Non-Formulary Medication (Bimatoprost (Lumigan)) 1 DROP BID 12/21/17 09:00 12/21/17 21:00 1 ML Non-Formulary Medication (Brimonidine Tartrate/Timolol (Combigan Eye Drops)) 1 DROP BID 12/21/17 09:00 12/21/17 21:00 1 ML Non-Formulary Medication (Brinzolamide (Azopt)) 1 drop BID 12/21/17 09:00 UNV 12/21/17 21:00 1 DROP Oxycodone/ Acetaminophen (Percocet 5/325) 1 tab PRN Q6HRS PRN 12/20/17 22:30 Piperacillin Sod/ Tazobactam Sod 3.375 gm/Sodium Chloride 50 ml @ 100 mls/hr 1X ONCE 12/20/17 18:00 12/20/17 18:29 DC 12/20/17 18:17 100 MLS/HR Potassium Chloride/Dextrose/ Sod Cl 1,000 ml @ 75 mls/hr [id number] 12/20/17 22:30 12/21/17 20:51 75 MLS/HR Potassium Chloride (Klor-Con) 40 meq 1X ONCE 12/20/17 22:30 12/20/17 22:31 DC 12/21/17 00:33 40 MEQ Sodium Chloride 1,000 ml @ 75 mls/hr [id number] 12/20/17 17:30 12/20/17 22:27 DC 12/20/17 18:13 75 MLS/HR Timolol Maleate (Timoptic 0.5% [facility]) 1 drop BID 12/21/17 21:00 Cancel Vancomycin HCl (Vanco Per Pharmacy) 1 each DAILY PRN 12/20/17 17:30 12/21/17 15:47 1 EACH Vancomycin HCl (Vancomycin Trough Level) 1 each 1X ONCE 12/22/17 20:30 12/22/17 20:31 Vancomycin HCl 1.5 gm/Sodium Chloride 500 ml @ 250 mls/hr Q24H 12/21/17 18:00 12/21/17 20:52 250 MLS/HR Vancomycin HCl 1.75 gm/Sodium Chloride 500 ml @ 250 mls/hr 1X ONCE 12/20/17 18:00 12/20/17 19:59 DC 12/20/17 18:00 250 MLS/HR Labs: Lab Laboratory Tests Test 12/21/17 12:38 12/21/17 20:24 12/22/17 07:56 Glucose (Fingerstick) 117 mg/dL (70-99) 107 mg/dL (70-99) 109 mg/dL (70-99) Objective: Assessment: duplicate Plan: Plan of Care LAURITA Davis MD Dec 22, 2017 08:37
--- NOTE | 2017-12-22 08:53 | PDOC ---
LUDMILA BROOKS [employer] APPRENTICE 12/22/17 0853: SURGICAL PROGRESS NOTE Subjective some rectal burning from hemorrhoids Vital Signs Vital Signs Date Time Temp Pulse Resp B/P (MAP) Pulse Ox O2 Delivery O2 Flow Rate FiO2 12/22/17 07:31 Room Air 12/22/17 07:00 98.4 85 18 125/61 (82) 97 98.4 I&O Intake and Output 12/22/17 07:00 Intake Total 2520 ml Output Total 553 ml Balance 1967 ml Intake Oral 480 ml IV Total 2040 ml Output Urine Total 550 ml Stool Total 3 ml # Voids 16 # Bowel Movements 11 General: Alert, Oriented X3, Cooperative, No acute distress Abdomen: Soft, Other (dressing in place) Labs Laboratory Tests Test 12/20/17 18:50 12/20/17 23:50 12/21/17 05:10 12/21/17 12:38 White Blood Count 9.8 x10^3/uL (4.0-11.0) 7.3 x10^3/uL (4.0-11.0) Red Blood Count 4.29 x10^6/uL (3.50-5.40) 4.02 x10^6/uL (3.50-5.40) Hemoglobin 11.8 g/dL (12.0-15.5) 11.0 g/dL (12.0-15.5) Hematocrit 36.1 % (36.0-47.0) 34.1 % (36.0-47.0) Mean Corpuscular Volume 84 fL (79-100) 85 fL (79-100) Mean Corpuscular Hemoglobin 28 pg (25-35) 28 pg (25-35) Mean Corpuscular Hemoglobin Concent 33 g/dL (31-37) 32 g/dL (31-37) Red Cell Distribution Width 15.8 % (11.5-14.5) 15.9 % (11.5-14.5) Platelet Count 289 x10^3/uL (140-400) 280 x10^3/uL (140-400) Neutrophils (%) (Auto) 64 % (31-73) 68 % (31-73) Lymphocytes (%) (Auto) 22 % (24-48) 17 % (24-48) Monocytes (%) (Auto) 10 % (0-9) 11 % (0-9) Eosinophils (%) (Auto) 3 % (0-3) 4 % (0-3) Basophils (%) (Auto) 1 % (0-3) 1 % (0-3) Neutrophils # (Auto) 6.4 x10^3uL (1.8-7.7) 4.9 x10^3uL (1.8-7.7) Lymphocytes # (Auto) 2.1 x10^3/uL (1.0-4.8) 1.2 x10^3/uL (1.0-4.8) Monocytes # (Auto) 1.0 x10^3/uL (0.0-1.1) 0.8 x10^3/uL (0.0-1.1) Eosinophils # (Auto) 0.3 x10^3/uL (0.0-0.7) 0.3 x10^3/uL (0.0-0.7) Basophils # (Auto) 0.1 x10^3/uL (0.0-0.2) 0.1 x10^3/uL (0.0-0.2) Sodium Level 150 mmol/L (136-145) 152 mmol/L (136-145) Potassium Level 3.2 mmol/L (3.5-5.1) 3.6 mmol/L (3.5-5.1) Chloride Level 114 mmol/L (98-107) 119 mmol/L (98-107) Carbon Dioxide Level 20 mmol/L (21-32) 20 mmol/L (21-32) Anion Gap 16 (6-14) 13 (6-14) Blood Urea Nitrogen 32 mg/dL (7-20) 29 mg/dL (7-20) Creatinine 1.6 mg/dL (0.6-1.0) 1.6 mg/dL (0.6-1.0) Estimated GFR (Cockcroft-Gault) 32.2 32.2 BUN/Creatinine Ratio 20 (6-20) Glucose Level 98 mg/dL (70-99) 100 mg/dL (70-99) Lactic Acid Level 1.0 mmol/L (0.4-2.0) Calcium Level 8.9 mg/dL (8.5-10.1) 8.8 mg/dL (8.5-10.1) Total Bilirubin 0.8 mg/dL (0.2-1.0) Aspartate Amino Transf (AST/SGOT) 14 U/L (15-37) Alanine Aminotransferase (ALT/SGPT) 27 U/L (14-59) Alkaline Phosphatase 147 U/L (46-116) Total Protein 7.2 g/dL (6.4-8.2) Albumin 2.5 g/dL (3.4-5.0) Albumin/Globulin Ratio 0.5 (1.0-1.7) Urine Collection Type Unknown Urine Color Yellow Urine Clarity Clear Urine pH 5.0 Urine Specific Winston 1.015 Urine Protein Negative mg/dL (NEG-TRACE) Urine Glucose (UA) Negative mg/dL (NEG) Urine Ketones (Stick) Negative mg/dL (NEG) Urine Blood Negative (NEG) Urine Nitrite Negative (NEG) Urine Bilirubin Negative (NEG) Urine Urobilinogen Dipstick 0.2 mg/dL (0.2 mg/dL) Urine Leukocyte Esterase Negative (NEG) Urine RBC 0 /HPF (0-2) Urine WBC 1-4 /HPF (0-4) Urine Squamous Epithelial Cells Mod /LPF Urine Amorphous Sediment Present /HPF Urine Bacteria 0 /HPF (0-FEW) Urine Hyaline Casts Occasional /HPF Urine Granular Casts Occasional /HPF Urine Mucus Slight /LPF Urine Yeast Present /HPF Glucose (Fingerstick) 117 mg/dL (70-99) Test 12/21/17 20:24 12/22/17 07:56 Glucose (Fingerstick) 107 mg/dL (70-99) 109 mg/dL (70-99) Laboratory Tests Test 12/21/17 12:38 12/21/17 20:24 12/22/17 07:56 Glucose (Fingerstick) 117 mg/dL (70-99) 107 mg/dL (70-99) 109 mg/dL (70-99) Assessment/Plan wound plans to correct electrolyte balance--wound care, abx--tentatively plan or tuesday DANYA EPSTEIN MD 12/22/17 1101: SURGICAL PROGRESS NOTE Assessment/Plan Pt seen and examined. Agree with Ms. Brooks's note Pt feels mildly better today main c/o is prolapsed hemorrhoids, probably secondary to diarrhea, will ask GI to evaluate, may be beneficial to consider banding vs surgery, given ongoing loose stools abd soft, dressing intact cont local wound care, will try some enzymatic debridement to LLQ surgery pending medical improvement will start diet, given no planned procedures until medically improved LUDMILA BROOKS APRN Dec 22, 2017 08:53 DANYA EPSTEIN MD Dec 22, 2017 11:01
[2017-12-22] MEDS: BRINZOLAMIDE OD SCH ×2 (09:00→21:00)
[2017-12-22] MEDS: TIMOLOL OD SCH ×2 (09:00→21:00)
[2017-12-22] MEDS: BRIMONIDINE TARTRATE OD SCH ×2 (09:00→21:00)
[2017-12-22] MEDS: BIMATOPROST OD SCH ×2 (09:09→21:00)
[2017-12-22] MEDS: FLUCONAZOLE 100 MG TABLET. PO SCH (09:11)
[2017-12-22] MEDS: ASCORBIC ACID 500 MG TABLET PO SCH ×2 (09:11→21:28)
[2017-12-22] MEDS: LACTOBACILLUS RHAMNOSUS GG 1 CAPSULE. PO SCH ×2 (09:11→21:28)
[2017-12-22] MEDS: MULTIVITAMIN with MINERAL TABLET. PO SCH (09:11)
--- NOTE | 2017-12-22 09:12 | PDOC ---
Infectious Disease Note Subjective: Subjective pt says feels a little better cont to have abdominal pain no f/c/n/v/d ROS: ROS Negative except for above. Vital Signs: Vital Signs Vital Signs Date Time Temp Pulse Resp B/P (MAP) Pulse Ox O2 Delivery O2 Flow Rate FiO2 12/22/17 07:31 Room Air 12/22/17 07:00 98.4 85 18 125/61 (82) 97 98.4 Physical Exam: PHYSICAL EXAM GENERAL: Alert, oriented x 3 female lying in bed, comfortable, in no acute distress. HEENT: Normocephalic, atraumatic, anicteric. No thrush. NECK: Supple. LUNGS: Clear bilaterally. HEART: S1, S2, no murmurs. ABDOMEN: Wound dressing in place, taken down. Large wound defect with eschar and sloughing. Mild tenderness present, mildly distended. EXTREMITIES: No edema, no cyanosis. NEUROLOGIC: Alert, oriented, awake, cooperative. PSYCHIATRIC: Cooperative. DERMATOLOGIC: As above in abdomen, otherwise no generalized rash. Medications: Inpatient Meds: Current Medications Medications (Trade) Dose Ordered Sig/Maite Start Time Stop Time Status Last Admin Dose Admin Acetaminophen/ Hydrocodone Bitart (Lortab 5/325) 2 tab PRN Q4HRS PRN 12/20/17 17:30 12/22/17 06:03 2 TAB Albuterol Sulfate (Ventolin Neb Soln) 2.5 mg PRN Q6HRS PRN 12/20/17 18:15 Amitriptyline HCl (Elavil) 10 mg QHS 12/21/17 21:00 12/21/17 20:56 10 MG Ascorbic Acid (Vitamin C) 500 mg BID 12/21/17 13:00 12/21/17 20:56 500 MG Brimonidine Tartrate (Alphagan) 1 drop BID 12/21/17 21:00 Cancel Calcium Carbonate/ Glycine (Oscal) 500 mg [id number] 12/21/17 08:00 12/21/17 08:46 500 MG Dextrose (Dextrose 50%-Water Syringe) 12.5 gm PRN Q15MIN PRN 12/21/17 10:00 Fluconazole (Diflucan) 100 mg DAILY 12/21/17 13:00 12/21/17 14:29 100 MG Hydrocortisone (Proctosol-Hc) 1 grant PRN TID PRN 12/21/17 12:30 UNV Influenza Virus Vaccine (Afluria Trivalent [id number] Syringe) 0.5 ml ONCE ONCE 12/21/17 09:00 12/21/17 11:04 DC Insulin Human Lispro (HumaLOG) 0-5 UNITS TIDWMEALS 12/21/17 12:00 Labetalol HCl (Normodyne Iv Push) 20 mg PRN Q2HR PRN 12/20/17 17:45 12/20/17 18:13 20 MG Lactobacillus Rhamnosus (Culturelle) 1 cap BID 12/21/17 21:00 12/21/17 20:56 1 CAP Linezolid (Zyvox) 600 mg BID 12/22/17 09:00 UNV Meclizine HCl (Antivert) 25 mg PRN TID PRN 12/20/17 18:15 Multivitamins (Thera M Plus) 1 tab DAILY 12/21/17 09:00 12/21/17 08:46 1 TAB Non-Formulary Medication (Albuterol Sulfate (Ventolin Hfa Inhaler)) 18 gm PRN PRN 12/20/17 18:15 UNV Non-Formulary Medication (Bimatoprost (Lumigan)) 1 DROP BID 12/21/17 09:00 12/21/17 21:00 1 ML Non-Formulary Medication (Brimonidine Tartrate/Timolol (Combigan Eye Drops)) 1 DROP BID 12/21/17 09:00 12/21/17 21:00 1 ML Non-Formulary Medication (Brinzolamide (Azopt)) 1 drop BID 12/21/17 09:00 UNV 12/21/17 21:00 1 DROP Oxycodone/ Acetaminophen (Percocet 5/325) 1 tab PRN Q6HRS PRN 12/20/17 22:30 Piperacillin Sod/ Tazobactam Sod 3.375 gm/Sodium Chloride 50 ml @ 100 mls/hr 1X ONCE 12/20/17 18:00 12/20/17 18:29 DC 12/20/17 18:17 100 MLS/HR Potassium Chloride/Dextrose/ Sod Cl 1,000 ml @ 75 mls/hr [id number] 12/20/17 22:30 12/21/17 20:51 75 MLS/HR Potassium Chloride (Klor-Con) 40 meq 1X ONCE 12/20/17 22:30 12/20/17 22:31 DC 12/21/17 00:33 40 MEQ Sodium Chloride 1,000 ml @ 75 mls/hr [id number] 12/20/17 17:30 12/20/17 22:27 DC 12/20/17 18:13 75 MLS/HR Timolol Maleate (Timoptic 0.5% [facility]) 1 drop BID 12/21/17 21:00 Cancel Vancomycin HCl (Vanco Per Pharmacy) 1 each DAILY PRN 12/20/17 17:30 12/22/17 08:36 DC 12/21/17 15:47 1 EACH Vancomycin HCl (Vancomycin Trough Level) 1 each 1X ONCE 12/22/17 20:30 12/22/17 20:31 Vancomycin HCl 1.5 gm/Sodium Chloride 500 ml @ 250 mls/hr Q24H 12/21/17 18:00 12/22/17 08:36 DC 12/21/17 20:52 250 MLS/HR Vancomycin HCl 1.75 gm/Sodium Chloride 500 ml @ 250 mls/hr 1X ONCE 12/20/17 18:00 12/20/17 19:59 DC 12/20/17 18:00 250 MLS/HR Labs: Lab Laboratory Tests Test 12/21/17 12:38 12/21/17 20:24 12/22/17 07:56 Glucose (Fingerstick) 117 mg/dL (70-99) 107 mg/dL (70-99) 109 mg/dL (70-99) Objective: Assessment: LABORATORY DATA: Last abdominal CT was 12/07/2017, which shows fluid collection identified in the anterior abdominal wall in the subcutaneous region measuring 2.1 x 15.1 x 15.1 cm, which has decreased compared to prior exam, now containing fluid and multiple foci of air within this, a portion of fluid collection which extends to the anterior surface of the abdominal wall near the skin. Differential includes postoperative seroma, hematoma or abscess. An 8 mm density identified in the left kidney could represent hyperdense cyst or solid nodule. A 7.5 mm ground-glass nodule identified in the right middle lobe of the lung; followup CT in 3-6 months. Hepatic steatosis. IMPRESSION: 1. Progressive Abdominal wall infection with eschar, necrosis, drainage and failed outpatient p.o. antibiotics in Nov with zyvox followed by doxycycline. 2. History of hernia repair with mesh placement in 09/2017. 3. History of wound infection with dehiscence, treated in 10/2017. 4. Diabetes. 5. History of subdural hematoma with mild cognitive dysfunction. 6. History of previous exploratory laparotomy for small bowel resection, removal of mesh, ventral incisional hernia repair and debridement of abdominal wall, 08/10/2016. 7. History of tobaccoism, quit. 8. Status post hysterectomy. 9. Chronic obstructive pulmonary disease. 10. CKD 11. Diarrhea Plan: Plan of Care Continue Zosyn,diflucan .,DC IV Vanc, Start zyvox Follow up cultures and lab in a.m. Follow up C. diff PCR if pt has diarrhea General surgery consulted, plans per pt are for I and D now moved to early next week -Due to presence of mesh and history of methicillin-resistant Staphylococcus aureus, antibiotics alone may not be optimal. Rediscussed with again Continue local wound care LAURITA LAURENT MD Dec 22, 2017 09:12
[2017-12-22] MEDS: LINEZOLID 600 MG TABLET PO SCH ×2 (09:14→21:29)
[2017-12-22] MEDS: HYDROCORTISONE 2.5% RECTAL CREAM 30GM TUBE. RC PRN ×2 (09:50→21:27)
--- NOTE | 2017-12-22 09:50 | PDOC ---
PROGRESS NOTES Subjective Subjective looks better today Objective Objective Vital Signs Date Time Temp Pulse Resp B/P (MAP) Pulse Ox O2 Delivery O2 Flow Rate FiO2 12/22/17 07:31 Room Air 12/22/17 07:00 98.4 85 18 125/61 (82) 97 98.4 Intake and Output 12/22/17 07:00 Intake Total 2520 ml Output Total 553 ml Balance 1967 ml Intake Oral 480 ml IV Total 2040 ml Output Urine Total 550 ml Stool Total 3 ml # Voids 16 # Bowel Movements 11 Physical Exam Abdomen: Soft, Other (dressing in place) Heart: Regular rate, Normal S1, Normal S2, No murmurs Extremities: No clubbing, No cyanosis General: Alert, Oriented X3, Cooperative, No acute distress HEENT: PERRLA, Mucous membr. moist/pink Lungs: Clear to auscultation, Normal air movement MUSCULOSKELETAL: No deformity, No swelling Neuro: Normal speech, Sensation intact Psych/Mental Status: Mental status NL, Mood NL Assessment Assessment FINAL IMPRESSION: 1. Abdominal wall infection with skin necrosis, drainage and infection. 2. Recent wound dehiscence in the upper part of the incision. 3. Recent ventral hernia repair 2 months ago. 4. History of cerebrovascular accident with cognitive deficit. 5. Chronic obstructive pulmonary disease. 6. Hypertension. 7. Hypernatremia. 8. Hypokalemia. 9. Borderline DM PLAN: iv vanco+zosyn. spoke with ID CT abd and pelvis today. surgical plans for tuesday. dvt prevention labs pending. At this time, admitted to the hospital. Wound cultures, blood cultures, IV antibiotics, vancomycin and Zosyn. ID is consulted. Surgical consult, probably the patient may need surgical debridement. Also wound care consult. We would need a wound VAC down the road. Also correct sodium. Replace potassium. Give D5 half normal to correct the sodium imbalance. DVT prevention. Comment Review of Relevant I have reviewed the following items ranulfo (where applicable) has been applied. Labs Laboratory Tests Test 12/21/17 12:38 12/21/17 20:24 12/22/17 07:56 Glucose (Fingerstick) 117 mg/dL (70-99) 107 mg/dL (70-99) 109 mg/dL (70-99) Microbiology 12/20/17 Blood Culture - Preliminary, Resulted NO GROWTH AFTER 1 DAY 12/20/17 Anaerobic/Aerobic Culture, Resulted Pending 12/20/17 Anaerobic Culture Result 1 (JLUIS), Resulted Pending 12/20/17 Aerobic Culture, Resulted Pending 12/20/17 Aerobic Culture Result 1 (JLUIS), Resulted Pending 12/20/17 Gram Stain - Final, Resulted 12/20/17 Gram Stain Result 1 (JLUIS) - Final, Resulted 12/20/17 Gram Stain Result 2 (JLUIS) - Final, Resulted Medications Current Medications Amitriptyline HCl (Elavil) 10 mg QHS PO Last administered on 12/21/17at 20:56; Start 12/21/17 at 21:00 Ascorbic Acid (Vitamin C) 500 mg BID PO Last administered on 12/22/17at 09:11; Start 12/21/17 at 13:00 Brimonidine Tartrate (Alphagan) 1 drop BID OD ; Start 12/21/17 at 21:00; Status Cancel Dextrose (Dextrose 50%-Water Syringe) 12.5 gm PRN Q15MIN PRN IV SEE COMMENTS; Start 12/21/17 at 10:00 Fluconazole (Diflucan) 100 mg DAILY PO Last administered on 12/22/17at 09:11; Start 12/21/17 at 13:00 Hydrocortisone (Proctosol-Hc) 1 grant PRN QID PRN RC PAIN; Start 12/21/17 at 12: 30 Hydrocortisone (Proctosol-Hc) 1 grant PRN TID PRN RC PAIN; Start 12/21/17 at 12: 30; Status UNV Insulin Human Lispro (HumaLOG) 0-5 UNITS TIDWMEALS SQ ; Start 12/21/17 at 12:00 Lactobacillus Rhamnosus (Culturelle) 1 cap BID PO Last administered on at 09:11; Start 12/21/17 at 21:00 Linezolid (Zyvox) 600 mg BID PO Last administered on 12/22/17at 09:14; Start 12/22/17 at 09:00 Timolol Maleate (Timoptic 0.5% Oph) 1 drop BID OD ; Start 12/21/17 at 21:00; Status Cancel Vancomycin HCl (Vancomycin Trough Level) 1 each 1X ONCE MC ; Start 12/22/17 at 20:30; Stop 12/22/17 at 20:30; Status DC Vancomycin HCl 1.5 gm/Sodium Chloride 500 ml @ 250 mls/hr Q24H IV Last administered on 12/21/17at 20:52; Start 12/21/17 at 18:00; Stop 12/22/17 at 08 :36; Status DC Vitals/I & O Vital Sign - Last 24 Hours 12/21/17 12/21/17 12/21/17 12/21/17 10:35 11:00 18:49 19:25 Temp 98.0 98.2 98.0 98.2 Pulse 64 90 Resp 24 18 20 B/P (MAP) 148/77 (100) 159/74 (102) Pulse Ox 98 97 97 97 O2 Delivery Room Air Room Air Room Air Room Air 12/21/17 12/21/17 12/21/17 12/22/17 19:30 19:50 23:35 03:20 Temp 98.1 97.9 98.1 97.9 Pulse 86 87 Resp 16 20 B/P (MAP) 152/61 (91) 180/82 (114) Pulse Ox 97 96 99 O2 Delivery Room Air Room Air Room Air 12/22/17 12/22/17 12/22/17 12/22/17 06:03 07:00 07:15 07:31 Temp 98.4 98.4 Pulse 85 Resp 18 B/P (MAP) 125/61 (82) Pulse Ox 97 O2 Delivery Room Air Room Air Room Air Room Air Intake and Output 12/21/17 12/21/17 12/22/17 15:00 23:00 07:00 Intake Total 480 ml 2040 ml Output Total 553 ml Balance -553 ml 480 ml 2040 ml CHRISTOPH LE MD Dec 22, 2017 09:50
--- NOTE | 2017-12-22 10:21 | EKG ---
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
[2017-12-22 11:00] VITALS: BP 126/63
[2017-12-22 11:26] LABS: CALCIUM 8.5 mg/dL (8.5-10.1); CREATININE 1.4 mg/dL (0.6-1.0); GFR 37.6; POTASSIUM 3.5 mmol/L (3.5-5.1)
[2017-12-22 11:36] LABS: BASO % 1 % (0-3); EOS # 0.2 x10^3/uL (0.0-0.7); EOS % 3 % (0-3); HEMATOCRIT 34.4 % (36.0-47.0); HEMOGLOBIN 11.1 g/dL (12.0-15.5); LYMPH # 0.9 x10^3/uL (1.0-4.8); LYMPH % 14 % (24-48); MEAN CORPUSCULAR HEMOGLOBIN 27 pg (25-35); MEAN CORPUSCULAR HGB CONC 32 g/dL (31-37); MEAN CORPUSCULAR VOLUME 83 fL (79-100); MONO # 0.6 x10^3/uL (0.0-1.1); MONO % 10 % (0-9); NEUT # 4.5 x10^3uL (1.8-7.7); NEUT % 72 % (31-73); PLATELET COUNT 302 x10^3/uL (140-400); RED BLOOD COUNT 4.12 x10^6/uL (3.50-5.40); RED CELL DISTRIBUTION WIDTH 15.5 % (11.5-14.5); WHITE BLOOD COUNT 6.2 x10^3/uL (4.0-11.0)
--- NOTE | 2017-12-22 12:39 | PDOC2 ---
GI CONSULT Reason For Consult: Symptomatic hemorrhoids HPI: HPI: 67 y/o female, h/o VIH repairs w/ large abdominal wound, admitted w/ same. Followed by surgery and ID. Has had multiple loose stools x 3 days, C Diff negative. With this, has constant "stabbing" pain in anus. Per RN, skin is irritated. Has Proctosol-HC ordered. Reviewed surgery note -wondering about hemorrhoids and banding vs surgery. No n/v, reflux/heartburn, dysphagia, change in appetite, hematochezia, melena, or weight loss. Abd pain related to wound. Says typically no issues w/ diarrhea. Denies issues w/ hemorrhoids in the past. Thinks normal colonoscopy in her 30s. No previous EGD. S/p cholecystectomy. No liver or pancreas history. Uses ibuprofen at home. PMH: PMH: charts lists COPD and DM - she denies subdural hematoma, enterocutaneous fistula, CKD multiple hernia repairs w/ mesh/removal/replacement - also MACIEL, SBR, debridement cholecystectomy, appendectomy, hysterectomy FH: Family History: No pertinent hx Social History: Smoke: Quit ALCOHOL: rare ROS: GEN: Denies fevers, chills, sweats HEENT: Denies blurred vision, sore throat CV: Denies chest pain RESP: Denies shortness of air, cough GI: Per HPI : Denies hematuria, dysuria ENDO: Denies weight changes NEURO: Denies confusion, dizziness MSK: Denies weakness, joint pain/swelling SKIN: Denies jaundice, pruritus Vitals: Vitals: Vital Signs Date Time Temp Pulse Resp B/P (MAP) Pulse Ox O2 Delivery O2 Flow Rate FiO2 12/22/17 07:31 Room Air 12/22/17 07:00 98.4 85 18 125/61 (82) 97 98.4 Labs: Labs: Laboratory Tests Test 12/21/17 12:38 12/21/17 20:24 12/22/17 07:56 12/22/17 10:40 Glucose (Fingerstick) 117 mg/dL (70-99) 107 mg/dL (70-99) 109 mg/dL (70-99) White Blood Count 6.2 x10^3/uL (4.0-11.0) Red Blood Count 4.12 x10^6/uL (3.50-5.40) Hemoglobin 11.1 g/dL (12.0-15.5) Hematocrit 34.4 % (36.0-47.0) Mean Corpuscular Volume 83 fL (79-100) Mean Corpuscular Hemoglobin 27 pg (25-35) Mean Corpuscular Hemoglobin Concent 32 g/dL (31-37) Red Cell Distribution Width 15.5 % (11.5-14.5) Platelet Count 302 x10^3/uL (140-400) Neutrophils (%) (Auto) 72 % (31-73) Lymphocytes (%) (Auto) 14 % (24-48) Monocytes (%) (Auto) 10 % (0-9) Eosinophils (%) (Auto) 3 % (0-3) Basophils (%) (Auto) 1 % (0-3) Neutrophils # (Auto) 4.5 x10^3uL (1.8-7.7) Lymphocytes # (Auto) 0.9 x10^3/uL (1.0-4.8) Monocytes # (Auto) 0.6 x10^3/uL (0.0-1.1) Eosinophils # (Auto) 0.2 x10^3/uL (0.0-0.7) Basophils # (Auto) 0.0 x10^3/uL (0.0-0.2) Sodium Level 151 mmol/L (136-145) Potassium Level 3.5 mmol/L (3.5-5.1) Chloride Level 117 mmol/L (98-107) Carbon Dioxide Level 20 mmol/L (21-32) Anion Gap 14 (6-14) Blood Urea Nitrogen 22 mg/dL (7-20) Creatinine 1.4 mg/dL (0.6-1.0) Estimated GFR (Cockcroft-Gault) 37.6 Glucose Level 150 mg/dL (70-99) Calcium Level 8.5 mg/dL (8.5-10.1) Test 12/22/17 11:53 Glucose (Fingerstick) 122 mg/dL (70-99) Allergies: Coded Allergies: I S O L A T I O N *CONTACT* (Verified Allergy, Unknown, 11/15/17) mrsa No Known Medication Allergies (Verified Allergy, Unknown, 11/15/17) Medications: Current Medications Medications (Trade) Dose Ordered Sig/Matie Route PRN Reason Start Time Stop Time Status Last Admin Dose Admin Vancomycin HCl 1.5 gm/Sodium Chloride 500 ml @ 250 mls/hr Q24H IV 12/21/17 18:00 12/22/17 08:36 DC 12/21/17 20:52 Amitriptyline HCl (Elavil) 10 mg QHS PO 12/21/17 21:00 12/21/17 20:56 Fluconazole (Diflucan) 100 mg DAILY PO 12/21/17 13:00 12/22/17 09:11 Hydrocortisone (Proctosol-Hc) 1 grant PRN QID PRN RC PAIN 12/21/17 12:30 12/22/17 09:50 Ascorbic Acid (Vitamin C) 500 mg BID PO 12/21/17 13:00 12/22/17 09:11 Lactobacillus Rhamnosus (Culturelle) 1 cap BID PO 12/21/17 21:00 12/22/17 09:11 Linezolid (Zyvox) 600 mg BID PO 12/22/17 09:00 12/22/17 09:14 Imaging: Imaging: CXR (pending) PE: GEN: uncomfortable HEENT: Atraumatic, PERRL LUNGS: CTAB anteriorly HEART: RRR ABD: dressing over wound, tender - anus w/ erythema/irritation, tender to touch - also ?large skin tag external EXTREMITY: No edema SKIN: No rashes, no jaundice NEURO/PSYCH: A & O 3, flat A/P: A/P: H/o hernia repairs, chronic abd wound Rectal pain, loose stools (C Diff neg) CRC screen - thinks had normal colonoscopy ~30 years ago S/p cholecystectomy -- Plans for CT today. Barrier/paste might help skin irritation. Could try Imodium for loose stools. Additional recs per Dr. Cannon this afternoon. SHAHNAZ SABA Dec 22, 2017 12:39
[2017-12-22] MEDS ORDERED: IOHEXOL 240 MG/ML 50ML VIAL. PO ONE (14:00)
[2017-12-22] MEDS ORDERED: CONTRAST GIVEN. MC PRN (14:15)
[2017-12-22] MEDS: POTASSIUM CL 30MEQ D5-0.45NACL 1,000 ML IV SCH ×2 (14:30→21:28)
--- NOTE | 2017-12-22 14:55 | RAD ---
AP and Lateral Views of the Chest 12/22/2017 11:18 AM Indication: pre op work up, HX OF UMBILICAL HERNIA Comparison: Chest radiograph August 25, 2015 Findings: There is an ill-defined nodular opacity in the right midlung only appreciated on AP view. This measures approximately 2 cm in diameter. This is not identified on comparison study.. There is no pneumothorax or pleural effusion. No focal infiltrate is seen. Calcified granuloma in the right lower lobe noted. Heart size is normal. Bony thorax is intact. IMPRESSION: 1. Approximately 2 cm ill-defined nodular opacity in the right mid lung. Finding not identified on prior study. CT chest recommended for further evaluation 2. No other acute cardiopulmonary process is seen. Findings called to patient's nurse at 2:50 PM Electronically signed by: Maikol Owen MD (12/22/2017 2:52 PM) [id number]
[2017-12-22] MEDS: COLLAGENASE 250 UNIT/GM TOPICAL OINTMENT 30GM TUBE. TP SCH (15:25)
[2017-12-22] MEDS ORDERED: VITS A & D/LANOLIN TOPICAL OINTMENT 56GM TUBE. TP PRN (15:30)
[2017-12-22 16:00] VITALS: BP 132/74
--- NOTE | 2017-12-22 16:54 | RAD ---
PQRS Compliance Statement: One or more of the following individualized dose reduction techniques were utilized for this examination: 1. Automated exposure control 2. Adjustment of the mA and/or kV according to patient size 3. Use of iterative reconstruction technique CT ABD PEL W/ORAL CONTRST ONLY Clinical Indication: NON HEALING WOUND, ABDOMEN PAIN. Comparison: None available. Technique: Helical CT imaging of the abdomen and pelvis is performed without IV contrast. Oral contrast is administered. Findings: Groundglass nodule in the right middle lobe is best seen on the first image. Calcified granuloma right lower lobe. Coronary artery disease. Cardiac size normal. Fatty infiltration of the liver. Cholecystectomy. Spleen, pancreas, adrenal glands, abdominal aorta caliber, and kidneys are normal. Stomach not well distended. No dilated small bowel. No bowel obstruction. Ventral abdominal wall subcutaneous fluid and air collection with a well-defined tract to the skin surface measures up to 3.9 cm AP by 14 cm transverse by 17.3 cm craniocaudal. Deep to the collection the abdominal wall fascia appears intact. The tract to the skin surface now contains air instead of fluid. Subjectively the size of the collection is not significantly changed. Urinary bladder is normal. Hysterectomy. No pelvic free fluid. Vacuum disc phenomenon L5/S1. IMPRESSION: Air and fluid collection in the ventral abdominal wall subcutaneous fat size is not significantly changed. There is an air-filled tract that extends to the skin surface. Electronically signed by: Alvaro Butts MD (12/22/2017 4:51 PM) [id number]
[2017-12-22 19:20] VITALS: BP 166/60
[2017-12-22] MEDS: AMITRIPTYLINE HCL 10 MG TABLET. PO SCH (21:29)
[2017-12-22 23:06] VITALS: BP 152/64
[2017-12-23 02:57] VITALS: BP 148/68
[2017-12-23 05:51] LABS: CALCIUM 8.7 mg/dL (8.5-10.1); CREATININE 1.3 mg/dL (0.6-1.0); POTASSIUM 3.4 mmol/L (3.5-5.1)
[2017-12-23] MEDS: PIPERACILLIN/TAZOBACTAM 3.375 GM in IV NORMAL SALINE 50ML 50 ML IV SCH ×4 (06:04→23:38)
[2017-12-23] MEDS: HYDROcodone/APAP 5/325MG 1 TAB TABLET PO PRN ×2 (06:05→21:17)
[2017-12-23 07:00] VITALS: BP 150/64
[2017-12-23] MEDS: INSULIN LISPRO 300 UNITS/3 ML INSULN.PEN. SQ SCH ×3 (08:00→17:00)
[2017-12-23] MEDS: ASCORBIC ACID 500 MG TABLET PO SCH ×2 (08:06→21:16)
[2017-12-23] MEDS: CALCIUM CARBONATE 500 MG TABLET PO SCH (08:06)
[2017-12-23] MEDS: MULTIVITAMIN with MINERAL TABLET. PO SCH (08:06)
[2017-12-23] MEDS: FLUCONAZOLE 100 MG TABLET. PO SCH (08:06)
[2017-12-23] MEDS: LACTOBACILLUS RHAMNOSUS GG 1 CAPSULE. PO SCH ×2 (08:06→21:16)
[2017-12-23] MEDS: LINEZOLID 600 MG TABLET PO SCH ×2 (08:06→21:16)
[2017-12-23] MEDS: COLLAGENASE 250 UNIT/GM TOPICAL OINTMENT 30GM TUBE. TP SCH (08:07)
[2017-12-23] MEDS: BIMATOPROST OD SCH ×2 (08:08→21:00)
[2017-12-23] MEDS: BRIMONIDINE TARTRATE OD SCH (08:09)
[2017-12-23] MEDS: TIMOLOL OD SCH (08:09)
[2017-12-23] MEDS: BRINZOLAMIDE OD SCH (08:09)
[2017-12-23] MEDS: TIMOLOL 0.5% OPHTH SOLUTION 5ML BOTTLE. OD SCH ×2 (09:00→21:18)
[2017-12-23] MEDS: BRIMONIDINE 0.2% OPHTH SOLUTION 5ML BOTTLE. OD SCH ×2 (09:00→21:18)
[2017-12-23] MEDS ORDERED: POTASSIUM CHLORIDE 20 MEQ TABLET.ER. PO ONE (09:15)
--- NOTE | 2017-12-23 09:36 | PDOC ---
Infectious Disease Note Subjective: Subjective pt says feels better today cont to have abdominal pain burning sensation from her hemorrhoids has resolved no f/c/n/v/d ROS: ROS Negative except for above. Vital Signs: Vital Signs Vital Signs Date Time Temp Pulse Resp B/P (MAP) Pulse Ox O2 Delivery O2 Flow Rate FiO2 12/23/17 07:21 Room Air 12/23/17 07:16 16 12/23/17 07:00 97.4 79 150/64 (92) 93 97.4 Physical Exam: PHYSICAL EXAM GENERAL: Alert, oriented x 3 female lying in bed, comfortable, in no acute distress. HEENT: Normocephalic, atraumatic, anicteric. No thrush. NECK: Supple. LUNGS: Clear bilaterally. HEART: S1, S2, no murmurs. ABDOMEN: Wound dressing in place, taken down. Large wound defect with eschar and sloughing. Mild tenderness present, mildly distended. EXTREMITIES: No edema, no cyanosis. NEUROLOGIC: Alert, oriented, awake, cooperative. PSYCHIATRIC: Cooperative. DERMATOLOGIC: As above in abdomen, otherwise no generalized rash. Medications: Inpatient Meds: Current Medications Medications (Trade) Dose Ordered Sig/Maite Start Time Stop Time Status Last Admin Dose Admin Acetaminophen/ Hydrocodone Bitart (Lortab 5/325) 2 tab PRN Q4HRS PRN 12/20/17 17:30 12/23/17 06:05 2 TAB Albuterol Sulfate (Ventolin Neb Soln) 2.5 mg PRN Q6HRS PRN 12/20/17 18:15 Amitriptyline HCl (Elavil) 10 mg QHS 12/21/17 21:00 12/22/17 21:29 10 MG Ascorbic Acid (Vitamin C) 500 mg BID 12/21/17 13:00 12/23/17 08:06 500 MG Brimonidine Tartrate (Alphagan) 1 drop BID 12/23/17 09:00 Calcium Carbonate/ Glycine (Oscal) 500 mg [id number] 12/21/17 08:00 12/23/17 08:06 500 MG Collagenase (Santyl) 1 grant DAILY 12/22/17 13:00 12/23/17 08:07 1 GRANT Dextrose (Dextrose 50%-Water Syringe) 12.5 gm PRN Q15MIN PRN 12/21/17 10:00 Fluconazole (Diflucan) 100 mg DAILY 12/21/17 13:00 12/23/17 08:06 100 MG Hydrocortisone (Proctosol-Hc) 1 grant PRN TID PRN 12/21/17 12:30 UNV Influenza Virus Vaccine (Afluria Trivalent [id number] Syringe) 0.5 ml ONCE ONCE 12/21/17 09:00 12/21/17 11:04 DC Info (CONTRAST GIVEN -- Rx MONITORING) 1 each PRN DAILY PRN 12/22/17 14:15 12/24/17 14:14 Insulin Human Lispro (HumaLOG) 0-5 UNITS TIDWMEALS 12/21/17 12:00 Iohexol (Omnipaque 240 Mg/ml) 30 ml 1X ONCE 12/22/17 14:00 12/22/17 14:01 DC 12/22/17 14:00 30 ML Labetalol HCl (Normodyne Iv Push) 20 mg PRN Q2HR PRN 12/20/17 17:45 12/20/17 18:13 20 MG Lactobacillus Rhamnosus (Culturelle) 1 cap BID 12/21/17 21:00 12/23/17 08:06 1 CAP Linezolid (Zyvox) 600 mg BID 12/22/17 09:00 12/23/17 08:06 600 MG Meclizine HCl (Antivert) 25 mg PRN TID PRN 12/20/17 18:15 Multivitamins (Thera M Plus) 1 tab DAILY 12/21/17 09:00 12/23/17 08:06 1 TAB Non-Formulary Medication (Albuterol Sulfate (Ventolin Hfa Inhaler)) 18 gm PRN PRN 12/20/17 18:15 UNV Non-Formulary Medication (Bimatoprost (Lumigan)) 1 DROP BID 12/21/17 09:00 12/23/17 08:08 1 ML Non-Formulary Medication (Brimonidine Tartrate/Timolol (Combigan Eye Drops)) 1 DROP BID 12/21/17 09:00 12/23/17 08:25 DC 12/22/17 21:00 1 ML Non-Formulary Medication (Brinzolamide (Azopt)) 1 drop BID 12/21/17 09:00 UNV 12/23/17 08:09 1 DROP Oxycodone/ Acetaminophen (Percocet 5/325) 1 tab PRN Q6HRS PRN 12/20/17 22:30 Piperacillin Sod/ Tazobactam Sod 3.375 gm/Sodium Chloride 50 ml @ 100 mls/hr 1X ONCE 12/20/17 18:00 12/20/17 18:29 DC 12/20/17 18:17 100 MLS/HR Potassium Chloride/Dextrose/ Sod Cl 1,000 ml @ 75 mls/hr [id number] 12/20/17 22:30 12/22/17 21:28 75 MLS/HR Potassium Chloride (Klor-Con) 20 meq 1X ONCE 12/23/17 09:15 12/23/17 09:26 DC Sodium Chloride 1,000 ml @ 75 mls/hr [id number] 12/20/17 17:30 12/20/17 22:27 DC 12/20/17 18:13 75 MLS/HR Timolol Maleate (Timoptic 0.5% [facility]) 1 drop BID 12/23/17 09:00 Vancomycin HCl (Vanco Per Pharmacy) 1 each DAILY PRN 12/20/17 17:30 12/22/17 08:36 DC 12/21/17 15:47 1 EACH Vancomycin HCl (Vancomycin Trough Level) 1 each 1X ONCE 12/22/17 20:30 12/22/17 20:30 DC Vancomycin HCl 1.5 gm/Sodium Chloride 500 ml @ 250 mls/hr Q24H 12/21/17 18:00 12/22/17 08:36 DC 12/21/17 20:52 250 MLS/HR Vancomycin HCl 1.75 gm/Sodium Chloride 500 ml @ 250 mls/hr 1X ONCE 12/20/17 18:00 12/20/17 19:59 DC 12/20/17 18:00 250 MLS/HR Vitamin A/Vitamin D (Vitamin A & D Ointment) 1 grant PRN BID PRN 12/22/17 15:30 Labs: Lab Laboratory Tests Test 12/22/17 10:40 12/22/17 11:53 12/22/17 17:09 12/22/17 21:02 White Blood Count 6.2 x10^3/uL (4.0-11.0) Red Blood Count 4.12 x10^6/uL (3.50-5.40) Hemoglobin 11.1 g/dL (12.0-15.5) Hematocrit 34.4 % (36.0-47.0) Mean Corpuscular Volume 83 fL (79-100) Mean Corpuscular Hemoglobin 27 pg (25-35) Mean Corpuscular Hemoglobin Concent 32 g/dL (31-37) Red Cell Distribution Width 15.5 % (11.5-14.5) Platelet Count 302 x10^3/uL (140-400) Neutrophils (%) (Auto) 72 % (31-73) Lymphocytes (%) (Auto) 14 % (24-48) Monocytes (%) (Auto) 10 % (0-9) Eosinophils (%) (Auto) 3 % (0-3) Basophils (%) (Auto) 1 % (0-3) Neutrophils # (Auto) 4.5 x10^3uL (1.8-7.7) Lymphocytes # (Auto) 0.9 x10^3/uL (1.0-4.8) Monocytes # (Auto) 0.6 x10^3/uL (0.0-1.1) Eosinophils # (Auto) 0.2 x10^3/uL (0.0-0.7) Basophils # (Auto) 0.0 x10^3/uL (0.0-0.2) Sodium Level 151 mmol/L (136-145) Potassium Level 3.5 mmol/L (3.5-5.1) Chloride Level 117 mmol/L (98-107) Carbon Dioxide Level 20 mmol/L (21-32) Anion Gap 14 (6-14) Blood Urea Nitrogen 22 mg/dL (7-20) Creatinine 1.4 mg/dL (0.6-1.0) Estimated GFR (Cockcroft-Gault) 37.6 Glucose Level 150 mg/dL (70-99) Calcium Level 8.5 mg/dL (8.5-10.1) Glucose (Fingerstick) 122 mg/dL (70-99) 106 mg/dL (70-99) 104 mg/dL (70-99) Test 12/23/17 03:40 12/23/17 08:03 Sodium Level 147 mmol/L (136-145) Potassium Level 3.4 mmol/L (3.5-5.1) Chloride Level 114 mmol/L (98-107) Carbon Dioxide Level 21 mmol/L (21-32) Anion Gap 12 (6-14) Blood Urea Nitrogen 19 mg/dL (7-20) Creatinine 1.3 mg/dL (0.6-1.0) Estimated GFR (Cockcroft-Gault) 41.0 Glucose Level 104 mg/dL (70-99) Calcium Level 8.7 mg/dL (8.5-10.1) Glucose (Fingerstick) 96 mg/dL (70-99) Objective: Assessment: 1. Progressive Abdominal wall infection with eschar, necrosis, drainage and failed outpatient p.o. antibiotics in Nov with zyvox followed by doxycycline. CT abdomen unchanged from nov 2. History of hernia repair with mesh placement in 09/2017. 3. History of wound infection with dehiscence, treated in 10/2017. 4. Diabetes. 5. History of subdural hematoma with mild cognitive dysfunction. 6. History of previous exploratory laparotomy for small bowel resection, removal of mesh, ventral incisional hernia repair and debridement of abdominal wall, 08/10/2016. 7. History of tobaccoism, quit. 8. Status post hysterectomy. 9. Chronic obstructive pulmonary disease. 10. CKD 11. Diarrhea resolved Plan: Plan of Care Continue Zosyn,diflucan, zyvox Follow up cultures and lab in a.m. CT abdomen unchanged General surgery consulted, plans per pt are for I and D now moved to early next week -Due to presence of mesh and history of methicillin-resistant Staphylococcus aureus, antibiotics alone may not be optimal. Discussed with again Continue local wound care LAURITA LAURENT MD Dec 23, 2017 09:36
--- NOTE | 2017-12-23 10:03 | PDOC ---
PROGRESS NOTES Subjective Subjective feels better today Objective Objective Vital Signs Date Time Temp Pulse Resp B/P (MAP) Pulse Ox O2 Delivery O2 Flow Rate FiO2 12/23/17 07:21 Room Air 12/23/17 07:16 16 12/23/17 07:00 97.4 79 150/64 (92) 93 97.4 Intake and Output 12/23/17 07:00 Intake Total 4700 ml Output Total 3 ml Balance 4697 ml Intake Oral 1340 ml IV Total 1355 ml Other 2005 ml Urine/Stool Mix 3 ml # Voids 8 # Bowel Movements 7 Physical Exam Abdomen: Soft, Other (dressing in place) Heart: Regular rate, Normal S1, Normal S2, No murmurs Extremities: No clubbing, No cyanosis General: Alert, Oriented X3, Cooperative, No acute distress HEENT: PERRLA, Mucous membr. moist/pink Lungs: Clear to auscultation, Normal air movement MUSCULOSKELETAL: No deformity, No swelling Neuro: Normal speech, Sensation intact Psych/Mental Status: Mental status NL, Mood NL COMMENT dressings present abd wall Assessment Assessment FINAL IMPRESSION: lung nodule 2 cm rt middle lobe, new finding 1. Abdominal wall infection with skin necrosis, drainage and infection. 2. Recent wound dehiscence in the upper part of the incision. 3. Recent ventral hernia repair 2 months ago. 4. History of cerebrovascular accident with cognitive deficit. 5. Chronic obstructive pulmonary disease. 6. Hypertension. 7. Hypernatremia. 8. Hypokalemia. 9. Borderline DM PLAN: CT chest for lung nodule and pulmonary consult iv vanco+zosyn for now, gram neg rods on c/s. spoke with pts CT abd and pelvis today, no new changes,infection abd wall. surgical plans for tuesday. dvt prevention labs improving NA 147 ,pot 3.4. c diff -neg. GI consult appreciated Comment Review of Relevant I have reviewed the following items ranulfo (where applicable) has been applied. Labs Laboratory Tests Test 12/22/17 10:40 12/22/17 11:53 12/22/17 17:09 12/22/17 21:02 White Blood Count 6.2 x10^3/uL (4.0-11.0) Red Blood Count 4.12 x10^6/uL (3.50-5.40) Hemoglobin 11.1 g/dL (12.0-15.5) Hematocrit 34.4 % (36.0-47.0) Mean Corpuscular Volume 83 fL (79-100) Mean Corpuscular Hemoglobin 27 pg (25-35) Mean Corpuscular Hemoglobin Concent 32 g/dL (31-37) Red Cell Distribution Width 15.5 % (11.5-14.5) Platelet Count 302 x10^3/uL (140-400) Neutrophils (%) (Auto) 72 % (31-73) Lymphocytes (%) (Auto) 14 % (24-48) Monocytes (%) (Auto) 10 % (0-9) Eosinophils (%) (Auto) 3 % (0-3) Basophils (%) (Auto) 1 % (0-3) Neutrophils # (Auto) 4.5 x10^3uL (1.8-7.7) Lymphocytes # (Auto) 0.9 x10^3/uL (1.0-4.8) Monocytes # (Auto) 0.6 x10^3/uL (0.0-1.1) Eosinophils # (Auto) 0.2 x10^3/uL (0.0-0.7) Basophils # (Auto) 0.0 x10^3/uL (0.0-0.2) Sodium Level 151 mmol/L (136-145) Potassium Level 3.5 mmol/L (3.5-5.1) Chloride Level 117 mmol/L (98-107) Carbon Dioxide Level 20 mmol/L (21-32) Anion Gap 14 (6-14) Blood Urea Nitrogen 22 mg/dL (7-20) Creatinine 1.4 mg/dL (0.6-1.0) Estimated GFR (Cockcroft-Gault) 37.6 Glucose Level 150 mg/dL (70-99) Calcium Level 8.5 mg/dL (8.5-10.1) Glucose (Fingerstick) 122 mg/dL (70-99) 106 mg/dL (70-99) 104 mg/dL (70-99) Test 12/23/17 03:40 12/23/17 08:03 Sodium Level 147 mmol/L (136-145) Potassium Level 3.4 mmol/L (3.5-5.1) Chloride Level 114 mmol/L (98-107) Carbon Dioxide Level 21 mmol/L (21-32) Anion Gap 12 (6-14) Blood Urea Nitrogen 19 mg/dL (7-20) Creatinine 1.3 mg/dL (0.6-1.0) Estimated GFR (Cockcroft-Gault) 41.0 Glucose Level 104 mg/dL (70-99) Calcium Level 8.7 mg/dL (8.5-10.1) Glucose (Fingerstick) 96 mg/dL (70-99) Microbiology 12/20/17 Blood Culture - Preliminary, Resulted NO GROWTH AFTER 2 DAYS 12/20/17 Anaerobic/Aerobic Culture, Resulted Pending 12/20/17 Anaerobic Culture Result 1 (JLUIS), Resulted Pending 12/20/17 Aerobic Culture, Resulted Pending 12/20/17 Aerobic Culture Result 1 (JLUIS), Resulted Pending 12/20/17 Gram Stain - Final, Resulted 12/20/17 Gram Stain Result 1 (JLUIS) - Final, Resulted 12/20/17 Gram Stain Result 2 (JLUIS) - Final, Resulted Medications Current Medications Brimonidine Tartrate (Alphagan) 1 drop BID OD ; Start 12/23/17 at 09:00 Collagenase (Santyl) 1 grant DAILY TP Last administered on 12/23/17at 08:07; Start 12/22/17 at 13:00 Info (CONTRAST GIVEN -- Rx MONITORING) 1 each PRN DAILY PRN MC SEE COMMENTS; Start 12/22/17 at 14:15; Stop 12/24/17 at 14:14 Iohexol (Omnipaque 240 Mg/ml) 30 ml 1X ONCE PO Last administered on at 14:00; Start 12/22/17 at 14:00; Stop 12/22/17 at 14:01; Status DC Potassium Chloride (Klor-Con) 20 meq 1X ONCE PO ; Start 12/23/17 at 09:15; Stop 12/23/17 at 09:26; Status DC Timolol Maleate (Timoptic 0.5% [facility]) 1 drop BID OD ; Start 12/23/17 at 09:00 Vancomycin HCl (Vancomycin Trough Level) 1 each 1X ONCE MC ; Start 12/22/17 at 20:30; Stop 12/22/17 at 20:30; Status DC Vitamin A/Vitamin D (Vitamin A & D Ointment) 1 grant PRN BID PRN TP SKIN PROTECTION; Start 12/22/17 at 15:30 Vitals/I & O Vital Sign - Last 24 Hours 12/22/17 12/22/17 12/22/17 12/22/17 11:00 15:24 16:00 16:30 Temp 98.4 98.6 98.4 98.6 Pulse 88 97 Resp 18 20 B/P (MAP) 126/63 (84) 132/74 (93) Pulse Ox 96 97 97 O2 Delivery Room Air Room Air Room Air 12/22/17 12/22/17 12/22/17 12/22/17 19:20 19:35 21:29 23:06 Temp 97.6 97.7 97.6 97.7 Pulse 79 84 Resp 18 16 18 B/P (MAP) 166/60 (95) 152/64 (93) Pulse Ox 97 96 O2 Delivery Room Air Room Air Room Air Room Air 12/23/17 12/23/17 12/23/17 12/23/17 02:57 06:05 07:00 07:16 Temp 97.4 97.4 97.4 97.4 Pulse 81 79 Resp 18 18 20 16 B/P (MAP) 148/68 (94) 150/64 (92) Pulse Ox 96 93 O2 Delivery Room Air Room Air Room Air Room Air 12/23/17 07:21 O2 Delivery Room Air Intake and Output 12/22/17 12/22/17 12/23/17 15:00 23:00 07:00 Intake Total 1550 ml 3150 ml Output Total 3 ml Balance 1550 ml 3147 ml CHRISTOPH LE MD Dec 23, 2017 10:03
[2017-12-23 11:00] VITALS: BP 148/76
--- NOTE | 2017-12-23 11:35 | PDOC ---
Subjective: Subjective: Bottom feels "raw" but think topical treatment is helping. Family says 3 stools this morning - he also says diarrhea started many days prior to admission and Imodium helped at home. Objective: Vital Signs: Vital Signs Date Time Temp Pulse Resp B/P (MAP) Pulse Ox O2 Delivery O2 Flow Rate FiO2 12/23/17 07:21 Room Air 12/23/17 07:16 16 12/23/17 07:00 97.4 79 150/64 (92) 93 97.4 Labs: Laboratory Tests Test 12/22/17 11:53 12/22/17 17:09 12/22/17 21:02 12/23/17 03:40 Glucose (Fingerstick) 122 mg/dL 106 mg/dL 104 mg/dL Sodium Level 147 mmol/L Potassium Level 3.4 mmol/L Chloride Level 114 mmol/L Carbon Dioxide Level 21 mmol/L Anion Gap 12 Blood Urea Nitrogen 19 mg/dL Creatinine 1.3 mg/dL Estimated GFR (Cockcroft-Gault) 41.0 Glucose Level 104 mg/dL Calcium Level 8.7 mg/dL Test 12/23/17 08:03 Glucose (Fingerstick) 96 mg/dL Imaging: CT A/P 12/22 IMPRESSION: Air and fluid collection in the ventral abdominal wall subcutaneous fat size is not significantly changed. There is an air-filled tract that extends to the skin surface. Chest CT (pending) PE: GEN: NAD, sitting on edge of bed LUNGS: room air HEART: RRR ABD: BS+, dressing intact NEURO/PSYCH: A & O 3 A/P: H/o hernia repairs, abd wound Perianal irritation/pain -- Continue topical treatment, add Imodium for diarrhea, consider colonoscopy if indicated. SHAHNAZ SABA Dec 23, 2017 11:35
[2017-12-23] MEDS: DORZOLAMIDE 2% OPHTH SOLUTION 10ML BOTTLE. OU SCH ×2 (12:00→21:00)
--- NOTE | 2017-12-23 12:40 | RAD ---
CT of the chest without contrast, 12/23/2017: HISTORY: Lung mass Noncontrast scans were obtained as requested. There are mild geographic and patchy groundglass opacities in both lungs. These findings are most prominent inferiorly in the right upper and middle lobes. A predominantly solid, spiculated nodule is present in the right upper lobe along the superolateral aspect of the right hilum. It measures 1.6 x 1.2 cm on axial image 94 of series #3. No internal calcification is seen. A densely calcified nodule is present medially in the right lower lobe. No other pulmonary mass is seen. There is no evidence of pleural fluid. There is moderate calcific plaquing of the thoracic aorta without evidence of aneurysm. Minimal coronary artery calcifications are present. The heart is not enlarged. No mediastinal adenopathy is evident. The liver is of lower than normal density compatible with hepatic steatosis. A moderate-sized intramuscular lipoma is noted involving the abdominal wall musculature anterolaterally on the upper right. Moderate scattered degenerative changes are present in the spine. IMPRESSION: 1. Right upper lobe pulmonary mass raising the possibility of a primary lung malignancy. The mass is of sufficient size for FDG PET evaluation. 2. Mild patchy groundglass opacities in both lungs. This is a nonspecific finding which can be due to a variety of causes including inflammation, mild edema or chronic lung disease. 3. Hepatic steatosis. PQRS Compliance Statement: One or more of the following individualized dose reduction techniques were utilized for this examination: 1. Automated exposure control 2. Adjustment of the mA and/or kV according to patient size 3. Use of iterative reconstruction technique Electronically signed by: Ryan Hackett MD (12/23/2017 12:37 PM) [facility]
--- NOTE | 2017-12-23 13:34 | PDOC ---
PULMONARY PROGRESS NOTES Vitals Vital Signs Date Time Temp Pulse Resp B/P (MAP) Pulse Ox O2 Delivery O2 Flow Rate FiO2 12/23/17 11:00 97.5 79 20 148/76 (100) 96 Room Air 97.5 General: Alert, Oriented X4, No acute distress Lungs: Wheezing, Other Cardiovascular: S1, S2 Abdomen: Soft Extremities: No Edema Labs Laboratory Tests Test 12/21/17 20:24 12/22/17 07:56 12/22/17 10:40 12/22/17 11:53 Glucose (Fingerstick) 107 mg/dL (70-99) 109 mg/dL (70-99) 122 mg/dL (70-99) White Blood Count 6.2 x10^3/uL (4.0-11.0) Red Blood Count 4.12 x10^6/uL (3.50-5.40) Hemoglobin 11.1 g/dL (12.0-15.5) Hematocrit 34.4 % (36.0-47.0) Mean Corpuscular Volume 83 fL (79-100) Mean Corpuscular Hemoglobin 27 pg (25-35) Mean Corpuscular Hemoglobin Concent 32 g/dL (31-37) Red Cell Distribution Width 15.5 % (11.5-14.5) Platelet Count 302 x10^3/uL (140-400) Neutrophils (%) (Auto) 72 % (31-73) Lymphocytes (%) (Auto) 14 % (24-48) Monocytes (%) (Auto) 10 % (0-9) Eosinophils (%) (Auto) 3 % (0-3) Basophils (%) (Auto) 1 % (0-3) Neutrophils # (Auto) 4.5 x10^3uL (1.8-7.7) Lymphocytes # (Auto) 0.9 x10^3/uL (1.0-4.8) Monocytes # (Auto) 0.6 x10^3/uL (0.0-1.1) Eosinophils # (Auto) 0.2 x10^3/uL (0.0-0.7) Basophils # (Auto) 0.0 x10^3/uL (0.0-0.2) Sodium Level 151 mmol/L (136-145) Potassium Level 3.5 mmol/L (3.5-5.1) Chloride Level 117 mmol/L (98-107) Carbon Dioxide Level 20 mmol/L (21-32) Anion Gap 14 (6-14) Blood Urea Nitrogen 22 mg/dL (7-20) Creatinine 1.4 mg/dL (0.6-1.0) Estimated GFR (Cockcroft-Gault) 37.6 Glucose Level 150 mg/dL (70-99) Calcium Level 8.5 mg/dL (8.5-10.1) Test 12/22/17 17:09 12/22/17 21:02 12/23/17 03:40 12/23/17 08:03 Glucose (Fingerstick) 106 mg/dL (70-99) 104 mg/dL (70-99) 96 mg/dL (70-99) Sodium Level 147 mmol/L (136-145) Potassium Level 3.4 mmol/L (3.5-5.1) Chloride Level 114 mmol/L (98-107) Carbon Dioxide Level 21 mmol/L (21-32) Anion Gap 12 (6-14) Blood Urea Nitrogen 19 mg/dL (7-20) Creatinine 1.3 mg/dL (0.6-1.0) Estimated GFR (Cockcroft-Gault) 41.0 Glucose Level 104 mg/dL (70-99) Calcium Level 8.7 mg/dL (8.5-10.1) Test 12/23/17 11:30 Glucose (Fingerstick) 135 mg/dL (70-99) Laboratory Tests Test 12/22/17 17:09 12/22/17 21:02 12/23/17 03:40 12/23/17 08:03 Glucose (Fingerstick) 106 mg/dL (70-99) 104 mg/dL (70-99) 96 mg/dL (70-99) Sodium Level 147 mmol/L (136-145) Potassium Level 3.4 mmol/L (3.5-5.1) Chloride Level 114 mmol/L (98-107) Carbon Dioxide Level 21 mmol/L (21-32) Anion Gap 12 (6-14) Blood Urea Nitrogen 19 mg/dL (7-20) Creatinine 1.3 mg/dL (0.6-1.0) Estimated GFR (Cockcroft-Gault) 41.0 Glucose Level 104 mg/dL (70-99) Calcium Level 8.7 mg/dL (8.5-10.1) Test 12/23/17 11:30 Glucose (Fingerstick) 135 mg/dL (70-99) Medications Active Scripts Medications Dose Route/Sig Max Daily Dose Days Date Category Proctocream-Hc (Hydrocortisone) 30 Gm Cream..g. 1 Laly TP BID 12/21/17 Reported Gabapentin 300 Mg Capsule 300 Mg PO TID 12/21/17 Reported Anusol-Hc (Hydrocortisone Acetate) 25 Mg Supp.rect 1 Supp RC BID 12/21/17 Reported [place] 5-325 Tablet (Acetaminophen/Hydrocodone Bitart) 1 Each Tablet 1 Tab PO PRN Q6HRS PRN 12/21/17 Reported Clonidine Hcl 0.1 Mg Tablet 1 Tab PO PRN TID PRN 12/21/17 Reported Percocet 5-325 Mg Tablet (Oxycodone/Acetaminophen) 1 Each Tablet 1 Tab PO PRN Q6HRS PRN 12/16/17 Rx Zyvox (Linezolid) 600 Mg Tablet 600 Mg PO BID 14 11/15/17 Rx Azopt (Brinzolamide) 10 Ml Drops.susp 1 Drop OD BID 12/07/16 Reported Amitriptyline Hcl 10 Mg Tablet 10 Mg PO QHS 12/07/16 Reported Calcium (Calcium Carbonate) 600 Mg Tablet 600 Mg PO DAILY 12/02/16 Reported Multivitamins (Multivitamin) 1 Each Capsule 1 Each PO DAILY 12/02/16 Reported Meclizine Hcl 25 Mg Tablet 1 Tab PO PRN TID PRN 12/02/16 Reported Ventolin Hfa Inhaler (Albuterol Sulfate) 18 Gm Hfa.aer.ad 18 Gm INH PRN PRN 08/02/16 Reported Lumigan (Bimatoprost) 2.5 Ml Drops 2.5 Ml OD BID 08/02/16 Reported Combigan Eye Drops (Brimonidine Tartrate/Timolol) 5 Ml Drops 5 Ml OD BID 08/02/16 Reported Impression . CONSULT DICTATED THANKS RUL DENSITY SUSPICIOUS FOR CANCER WILL WORK UP OUTPT NEEDS PET SENIA BLANCHARD MD Dec 23, 2017 13:34
--- NOTE | 2017-12-23 14:48 | PDOC ---
SURGICAL PROGRESS NOTE Subjective Pt feels better overall, looks brighter, less stooling and no anal pain Vital Signs Vital Signs Date Time Temp Pulse Resp B/P (MAP) Pulse Ox O2 Delivery O2 Flow Rate FiO2 12/23/17 11:00 97.5 79 20 148/76 (100) 96 Room Air 97.5 I&O Intake and Output 12/23/17 07:00 Intake Total 4700 ml Output Total 3 ml Balance 4697 ml Intake Oral 1340 ml IV Total 1355 ml Other 2005 ml Urine/Stool Mix 3 ml # Voids 8 # Bowel Movements 7 General: Alert, Oriented X3, Cooperative Abdomen: Soft, Other (moderate size abscess, necrosis LLQ) Labs Laboratory Tests Test 12/21/17 20:24 12/22/17 07:56 12/22/17 10:40 12/22/17 11:53 Glucose (Fingerstick) 107 mg/dL (70-99) 109 mg/dL (70-99) 122 mg/dL (70-99) White Blood Count 6.2 x10^3/uL (4.0-11.0) Red Blood Count 4.12 x10^6/uL (3.50-5.40) Hemoglobin 11.1 g/dL (12.0-15.5) Hematocrit 34.4 % (36.0-47.0) Mean Corpuscular Volume 83 fL (79-100) Mean Corpuscular Hemoglobin 27 pg (25-35) Mean Corpuscular Hemoglobin Concent 32 g/dL (31-37) Red Cell Distribution Width 15.5 % (11.5-14.5) Platelet Count 302 x10^3/uL (140-400) Neutrophils (%) (Auto) 72 % (31-73) Lymphocytes (%) (Auto) 14 % (24-48) Monocytes (%) (Auto) 10 % (0-9) Eosinophils (%) (Auto) 3 % (0-3) Basophils (%) (Auto) 1 % (0-3) Neutrophils # (Auto) 4.5 x10^3uL (1.8-7.7) Lymphocytes # (Auto) 0.9 x10^3/uL (1.0-4.8) Monocytes # (Auto) 0.6 x10^3/uL (0.0-1.1) Eosinophils # (Auto) 0.2 x10^3/uL (0.0-0.7) Basophils # (Auto) 0.0 x10^3/uL (0.0-0.2) Sodium Level 151 mmol/L (136-145) Potassium Level 3.5 mmol/L (3.5-5.1) Chloride Level 117 mmol/L (98-107) Carbon Dioxide Level 20 mmol/L (21-32) Anion Gap 14 (6-14) Blood Urea Nitrogen 22 mg/dL (7-20) Creatinine 1.4 mg/dL (0.6-1.0) Estimated GFR (Cockcroft-Gault) 37.6 Glucose Level 150 mg/dL (70-99) Calcium Level 8.5 mg/dL (8.5-10.1) Test 12/22/17 17:09 12/22/17 21:02 12/23/17 03:40 12/23/17 08:03 Glucose (Fingerstick) 106 mg/dL (70-99) 104 mg/dL (70-99) 96 mg/dL (70-99) Sodium Level 147 mmol/L (136-145) Potassium Level 3.4 mmol/L (3.5-5.1) Chloride Level 114 mmol/L (98-107) Carbon Dioxide Level 21 mmol/L (21-32) Anion Gap 12 (6-14) Blood Urea Nitrogen 19 mg/dL (7-20) Creatinine 1.3 mg/dL (0.6-1.0) Estimated GFR (Cockcroft-Gault) 41.0 Glucose Level 104 mg/dL (70-99) Calcium Level 8.7 mg/dL (8.5-10.1) Test 12/23/17 11:30 Glucose (Fingerstick) 135 mg/dL (70-99) Laboratory Tests Test 12/22/17 17:09 12/22/17 21:02 12/23/17 03:40 12/23/17 08:03 Glucose (Fingerstick) 106 mg/dL (70-99) 104 mg/dL (70-99) 96 mg/dL (70-99) Sodium Level 147 mmol/L (136-145) Potassium Level 3.4 mmol/L (3.5-5.1) Chloride Level 114 mmol/L (98-107) Carbon Dioxide Level 21 mmol/L (21-32) Anion Gap 12 (6-14) Blood Urea Nitrogen 19 mg/dL (7-20) Creatinine 1.3 mg/dL (0.6-1.0) Estimated GFR (Cockcroft-Gault) 41.0 Glucose Level 104 mg/dL (70-99) Calcium Level 8.7 mg/dL (8.5-10.1) Test 12/23/17 11:30 Glucose (Fingerstick) 135 mg/dL (70-99) Problem List Abd wall abscess cont local wound care, plan abdominal wall debridement on 12/27, pending medically maximizing d/w pulm, suspect lung cancer, w/u as outpt DANYA EPSTEIN MD Dec 23, 2017 14:48
[2017-12-23 15:00] VITALS: BP 155/70
[2017-12-23] MEDS: POTASSIUM CL 30MEQ D5-0.45NACL 1,000 ML IV SCH (15:33)
[2017-12-23 19:00] VITALS: BP 158/67
[2017-12-23] MEDS: AMITRIPTYLINE HCL 10 MG TABLET. PO SCH (21:17)
[2017-12-23] MEDS: HYDROCORTISONE 2.5% RECTAL CREAM 30GM TUBE. RC PRN (21:18)
--- NOTE | 2017-12-23 21:37 | CONS ---
DATE OF CONSULTATION: 12/23/2017 ATTENDING PHYSICIAN: Mika Serna M.D. REASON FOR CONSULTATION: The patient seen in pulmonary consultation at the request of Dr. Serna for abnormal CT chest revealing a right upper lobe mass. HISTORY OF PRESENT ILLNESS: The patient is a 67-year old with a history of tobacco dependence, continues to smoke. No documented COPD, normally utilizes nebulized treatments at home. She was admitted with abdominal wound infection with cellulitis. She has had previous surgery approximately 2 months ago, underwent ventral hernia repair. Part of her workup included a CT abdomen and pelvis, which revealed a ground-glass nodule in the right middle lobe. The patient subsequently underwent CT chest. I reviewed the CT, there are several findings. There is a right upper lobe opacity, which was not present on previous film of 2007. She also has some mild patchy ground-glass opacities in both lungs, which were nonspecific. The patient denies hemoptysis. No daily productive cough. She was pretty much active and could walk without significant dyspnea. She does not wear oxygen at home. PAST MEDICAL HISTORY: 1. Recent ventral hernia repair approximately 2 months ago complicated with abdominal wound infection and she was recently admitted for that reason. 2. Cerebrovascular accident from aneurysm. 3. Mild cognitive deficit. 4. Possible COPD, unknown FEV1. 5. Tobacco dependence. 6. Hypertension. 7. Diabetes. PAST SURGICAL HISTORY: As above. In addition, she has had a hysterectomy and previous subdural hematoma evacuation. ALLERGIES: No known drug allergies. MEDICATIONS: List was reviewed. SOCIAL HISTORY: Socially, she continues to smoke. FAMILY HISTORY: No family history of lung cancer. REVIEW OF SYSTEMS: CONSTITUTIONAL: No fever or chills. EYES: No change in visual acuity. HEAD, EARS, NOSE AND THROAT: No nasal congestion or sore throat. PULMONARY: As indicated above. CARDIOVASCULAR: No chest pain or pressure. GASTROINTESTINAL: No nausea, vomiting or diarrhea. GENITOURINARY: No dysuria or frequency. MUSCULOSKELETAL: No localized muscle aches or joint pains. SKIN: No new skin rashes. ALLERGIES: No known drug allergies. PHYSICAL EXAMINATION: GENERAL: The patient appeared to be of stated age. She was in no respiratory distress. VITAL SIGNS: Stable. O2 saturation was greater than 92%, currently on room air. HEENT: Eyes, the sclerae were nonicteric. NECK: Jugular venous distention was not elevated. No lymphadenopathy. CHEST: Full expansion. LUNGS: Adequate airway flow with no wheezes. CARDIOVASCULAR: Regular rate and rhythm with S1 and S2. No S3. ABDOMEN: Soft. Ventral hernia wound. EXTREMITIES: No clubbing, cyanosis or edema. NEUROLOGICAL: The patient was awake, alert and following commands. A detailed neuro exam was not performed. LABORATORY DATA: Labs were reviewed. White count was normal. Hemoglobin and hematocrit chronically low. Electrolytes were deranged. RADIOLOGICAL DATA: CT chest as indicated above. IMPRESSION: 1. Abnormal CT chest revealing right upper lobe density suspicious for malignancy, not present in the film of 2007. 2. 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 3. Chronic obstructive pulmonary disease, unknown FEV1. 4. Tobacco dependent. 5. Progressive abdominal wall infection with recent hernia repair, status post mesh in September of 2017. 6. Diabetes. 7. History of subdural hematoma with mild cognitive dysfunction. 8. Tobacco dependent. PLAN: 1. From pulmonary standpoint of view, I recommend working up the right upper lobe density as an outpatient with possible fine needle aspiration or surgical intervention. 2. Continue current medical management. 3. I believe the patient is scheduled to undergo surgery on Tuesday. We will follow along. 4. The patient is currently on antibiotics, which would cover any infectious process in the lungs. 5. The patient instructed on the importance of discontinuing tobacco use. The above was discussed with both the patient and the at the bedside. SENIA BLANCHARD MD DR: JOSE/genesis JOB#: [id number] / [id number]
[2017-12-23 23:00] VITALS: BP 141/66
[2017-12-24 03:00] VITALS: BP 158/80
[2017-12-24 05:35] LABS: CALCIUM 8.4 mg/dL (8.5-10.1); CREATININE 1.2 mg/dL (0.6-1.0); GFR 44.9; POTASSIUM 4.2 mmol/L (3.5-5.1)
[2017-12-24] MEDS: PIPERACILLIN/TAZOBACTAM 3.375 GM in IV NORMAL SALINE 50ML 50 ML IV SCH ×4 (05:52→23:00)
[2017-12-24] MEDS: POTASSIUM CL 30MEQ D5-0.45NACL 1,000 ML IV SCH ×2 (05:54→19:50)
[2017-12-24] MEDS ORDERED: ONDANSETRON PF 4 MG/2 ML VIAL. IV PRN ×2 (06:30)
[2017-12-24 07:00] VITALS: BP 145/74
[2017-12-24] MEDS: INSULIN LISPRO 300 UNITS/3 ML INSULN.PEN. SQ SCH ×3 (08:00→17:00)
[2017-12-24] MEDS: ASCORBIC ACID 500 MG TABLET PO SCH ×2 (08:05→20:45)
[2017-12-24] MEDS: FLUCONAZOLE 100 MG TABLET. PO SCH (08:05)
[2017-12-24] MEDS: LINEZOLID 600 MG TABLET PO SCH ×2 (08:05→20:45)
[2017-12-24] MEDS: CALCIUM CARBONATE 500 MG TABLET PO SCH (08:05)
[2017-12-24] MEDS: LACTOBACILLUS RHAMNOSUS GG 1 CAPSULE. PO SCH ×2 (08:05→20:44)
[2017-12-24] MEDS: MULTIVITAMIN with MINERAL TABLET. PO SCH (08:06)
[2017-12-24] MEDS: BIMATOPROST OD SCH ×2 (08:08→21:00)
[2017-12-24] MEDS: DORZOLAMIDE 2% OPHTH SOLUTION 10ML BOTTLE. OU SCH ×2 (08:10→21:00)
[2017-12-24] MEDS: BRIMONIDINE 0.2% OPHTH SOLUTION 5ML BOTTLE. OD SCH ×2 (08:11→21:00)
--- NOTE | 2017-12-24 08:14 | PDOC ---
PULMONARY PROGRESS NOTES Subjective sob is better, no cough, no pain Vitals Vital Signs Date Time Temp Pulse Resp B/P (MAP) Pulse Ox O2 Delivery O2 Flow Rate FiO2 12/24/17 03:00 97.7 83 18 158/80 (106) 96 Room Air 97.7 ROS: No Nausea, No Chest Pain General: Alert, Oriented X4, No acute distress HEENT: Other (nc at perrl) Lungs: Crackles, Other Cardiovascular: S1, S2 Abdomen: Soft Neuro Exam: Alert Extremities: No Edema Skin: Warm Labs Laboratory Tests Test 12/22/17 10:40 12/22/17 11:53 12/22/17 17:09 12/22/17 21:02 White Blood Count 6.2 x10^3/uL (4.0-11.0) Red Blood Count 4.12 x10^6/uL (3.50-5.40) Hemoglobin 11.1 g/dL (12.0-15.5) Hematocrit 34.4 % (36.0-47.0) Mean Corpuscular Volume 83 fL (79-100) Mean Corpuscular Hemoglobin 27 pg (25-35) Mean Corpuscular Hemoglobin Concent 32 g/dL (31-37) Red Cell Distribution Width 15.5 % (11.5-14.5) Platelet Count 302 x10^3/uL (140-400) Neutrophils (%) (Auto) 72 % (31-73) Lymphocytes (%) (Auto) 14 % (24-48) Monocytes (%) (Auto) 10 % (0-9) Eosinophils (%) (Auto) 3 % (0-3) Basophils (%) (Auto) 1 % (0-3) Neutrophils # (Auto) 4.5 x10^3uL (1.8-7.7) Lymphocytes # (Auto) 0.9 x10^3/uL (1.0-4.8) Monocytes # (Auto) 0.6 x10^3/uL (0.0-1.1) Eosinophils # (Auto) 0.2 x10^3/uL (0.0-0.7) Basophils # (Auto) 0.0 x10^3/uL (0.0-0.2) Sodium Level 151 mmol/L (136-145) Potassium Level 3.5 mmol/L (3.5-5.1) Chloride Level 117 mmol/L (98-107) Carbon Dioxide Level 20 mmol/L (21-32) Anion Gap 14 (6-14) Blood Urea Nitrogen 22 mg/dL (7-20) Creatinine 1.4 mg/dL (0.6-1.0) Estimated GFR (Cockcroft-Gault) 37.6 Glucose Level 150 mg/dL (70-99) Calcium Level 8.5 mg/dL (8.5-10.1) Glucose (Fingerstick) 122 mg/dL (70-99) 106 mg/dL (70-99) 104 mg/dL (70-99) Test 12/23/17 03:40 12/23/17 08:03 12/23/17 11:30 12/23/17 16:35 Sodium Level 147 mmol/L (136-145) Potassium Level 3.4 mmol/L (3.5-5.1) Chloride Level 114 mmol/L (98-107) Carbon Dioxide Level 21 mmol/L (21-32) Anion Gap 12 (6-14) Blood Urea Nitrogen 19 mg/dL (7-20) Creatinine 1.3 mg/dL (0.6-1.0) Estimated GFR (Cockcroft-Gault) 41.0 Glucose Level 104 mg/dL (70-99) Calcium Level 8.7 mg/dL (8.5-10.1) Glucose (Fingerstick) 96 mg/dL (70-99) 135 mg/dL (70-99) 98 mg/dL (70-99) Test 12/23/17 20:30 12/24/17 04:05 12/24/17 07:51 Glucose (Fingerstick) 122 mg/dL (70-99) 118 mg/dL (70-99) Sodium Level 148 mmol/L (136-145) Potassium Level 4.2 mmol/L (3.5-5.1) Chloride Level 111 mmol/L (98-107) Carbon Dioxide Level 24 mmol/L (21-32) Anion Gap 13 (6-14) Blood Urea Nitrogen 15 mg/dL (7-20) Creatinine 1.2 mg/dL (0.6-1.0) Estimated GFR (Cockcroft-Gault) 44.9 Glucose Level 103 mg/dL (70-99) Calcium Level 8.4 mg/dL (8.5-10.1) Laboratory Tests Test 12/23/17 11:30 12/23/17 16:35 12/23/17 20:30 12/24/17 04:05 Glucose (Fingerstick) 135 mg/dL (70-99) 98 mg/dL (70-99) 122 mg/dL (70-99) Sodium Level 148 mmol/L (136-145) Potassium Level 4.2 mmol/L (3.5-5.1) Chloride Level 111 mmol/L (98-107) Carbon Dioxide Level 24 mmol/L (21-32) Anion Gap 13 (6-14) Blood Urea Nitrogen 15 mg/dL (7-20) Creatinine 1.2 mg/dL (0.6-1.0) Estimated GFR (Cockcroft-Gault) 44.9 Glucose Level 103 mg/dL (70-99) Calcium Level 8.4 mg/dL (8.5-10.1) Test 12/24/17 07:51 Glucose (Fingerstick) 118 mg/dL (70-99) Medications Active Scripts Medications Dose Route/Sig Max Daily Dose Days Date Category Proctocream-Hc (Hydrocortisone) 30 Gm Cream..g. 1 Laly TP BID 12/21/17 Reported Gabapentin 300 Mg Capsule 300 Mg PO TID 12/21/17 Reported Anusol-Hc (Hydrocortisone Acetate) 25 Mg Supp.rect 1 Supp RC BID 12/21/17 Reported [place] 5-325 Tablet (Acetaminophen/Hydrocodone Bitart) 1 Each Tablet 1 Tab PO PRN Q6HRS PRN 12/21/17 Reported Clonidine Hcl 0.1 Mg Tablet 1 Tab PO PRN TID PRN 12/21/17 Reported Percocet 5-325 Mg Tablet (Oxycodone/Acetaminophen) 1 Each Tablet 1 Tab PO PRN Q6HRS PRN 12/16/17 Rx Zyvox (Linezolid) 600 Mg Tablet 600 Mg PO BID 14 11/15/17 Rx Azopt (Brinzolamide) 10 Ml Drops.susp 1 Drop OD BID 12/07/16 Reported Amitriptyline Hcl 10 Mg Tablet 10 Mg PO QHS 12/07/16 Reported Calcium (Calcium Carbonate) 600 Mg Tablet 600 Mg PO DAILY 12/02/16 Reported Multivitamins (Multivitamin) 1 Each Capsule 1 Each PO DAILY 12/02/16 Reported Meclizine Hcl 25 Mg Tablet 1 Tab PO PRN TID PRN 12/02/16 Reported Ventolin Hfa Inhaler (Albuterol Sulfate) 18 Gm Hfa.aer.ad 18 Gm INH PRN PRN 08/02/16 Reported Lumigan (Bimatoprost) 2.5 Ml Drops 2.5 Ml OD BID 08/02/16 Reported Combigan Eye Drops (Brimonidine Tartrate/Timolol) 5 Ml Drops 5 Ml OD BID 08/02/16 Reported Impression . IMPRESSION: 1. Abnormal CT chest revealing right upper lobe density suspicious for malignancy, not present in the film of 2007. 2. 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 3. Chronic obstructive pulmonary disease, unknown FEV1. 4. Tobacco dependent. 5. Progressive abdominal wall infection with recent hernia repair, status post mesh in September of 2017. 6. Diabetes. 7. History of subdural hematoma with mild cognitive dysfunction. 8. Tobacco dependent. Plan . PLAN: 1. From pulmonary standpoint of view, recommend working up the right upper lobe density as an outpatient with pet scan, pfts and possible fine needle aspiration or surgical intervention. 2. Continue current medical management. 3. I believe the patient is scheduled to undergo surgery on Tuesday. We will follow along. 4. The patient is currently on antibiotics, which would cover any infectious process in the lungs. 5. The patient instructed on the importance of discontinuing tobacco use. 6. start BD, ICS discussed w MARIO King MD Dec 24, 2017 08:14
[2017-12-24] MEDS: TIMOLOL 0.5% OPHTH SOLUTION 5ML BOTTLE. OD SCH ×2 (09:00→21:00)
[2017-12-24] MEDS: COLLAGENASE 250 UNIT/GM TOPICAL OINTMENT 30GM TUBE. TP SCH (09:00)
--- NOTE | 2017-12-24 09:18 | PDOC ---
SURGICAL PROGRESS NOTE Subjective Lobo for Felipe no new complaints pain controlled Vital Signs Vital Signs Date Time Temp Pulse Resp B/P (MAP) Pulse Ox O2 Delivery O2 Flow Rate FiO2 12/24/17 08:00 Room Air 12/24/17 07:00 98.0 90 16 145/74 (97) 95 98.0 I&O Intake and Output 12/24/17 07:00 Intake Total 4680 ml Balance 4680 ml Intake Oral 1130 ml IV Total 1675 ml Other 1875 ml # Voids 8 # Bowel Movements 4 PATIENT HAS A BRAN: No General: Alert, Oriented X3, No acute distress Labs Laboratory Tests Test 12/22/17 10:40 12/22/17 11:53 12/22/17 17:09 12/22/17 21:02 White Blood Count 6.2 x10^3/uL (4.0-11.0) Red Blood Count 4.12 x10^6/uL (3.50-5.40) Hemoglobin 11.1 g/dL (12.0-15.5) Hematocrit 34.4 % (36.0-47.0) Mean Corpuscular Volume 83 fL (79-100) Mean Corpuscular Hemoglobin 27 pg (25-35) Mean Corpuscular Hemoglobin Concent 32 g/dL (31-37) Red Cell Distribution Width 15.5 % (11.5-14.5) Platelet Count 302 x10^3/uL (140-400) Neutrophils (%) (Auto) 72 % (31-73) Lymphocytes (%) (Auto) 14 % (24-48) Monocytes (%) (Auto) 10 % (0-9) Eosinophils (%) (Auto) 3 % (0-3) Basophils (%) (Auto) 1 % (0-3) Neutrophils # (Auto) 4.5 x10^3uL (1.8-7.7) Lymphocytes # (Auto) 0.9 x10^3/uL (1.0-4.8) Monocytes # (Auto) 0.6 x10^3/uL (0.0-1.1) Eosinophils # (Auto) 0.2 x10^3/uL (0.0-0.7) Basophils # (Auto) 0.0 x10^3/uL (0.0-0.2) Sodium Level 151 mmol/L (136-145) Potassium Level 3.5 mmol/L (3.5-5.1) Chloride Level 117 mmol/L (98-107) Carbon Dioxide Level 20 mmol/L (21-32) Anion Gap 14 (6-14) Blood Urea Nitrogen 22 mg/dL (7-20) Creatinine 1.4 mg/dL (0.6-1.0) Estimated GFR (Cockcroft-Gault) 37.6 Glucose Level 150 mg/dL (70-99) Calcium Level 8.5 mg/dL (8.5-10.1) Glucose (Fingerstick) 122 mg/dL (70-99) 106 mg/dL (70-99) 104 mg/dL (70-99) Test 12/23/17 03:40 12/23/17 08:03 12/23/17 11:30 12/23/17 16:35 Sodium Level 147 mmol/L (136-145) Potassium Level 3.4 mmol/L (3.5-5.1) Chloride Level 114 mmol/L (98-107) Carbon Dioxide Level 21 mmol/L (21-32) Anion Gap 12 (6-14) Blood Urea Nitrogen 19 mg/dL (7-20) Creatinine 1.3 mg/dL (0.6-1.0) Estimated GFR (Cockcroft-Gault) 41.0 Glucose Level 104 mg/dL (70-99) Calcium Level 8.7 mg/dL (8.5-10.1) Glucose (Fingerstick) 96 mg/dL (70-99) 135 mg/dL (70-99) 98 mg/dL (70-99) Test 12/23/17 20:30 12/24/17 04:05 12/24/17 07:51 Glucose (Fingerstick) 122 mg/dL (70-99) 118 mg/dL (70-99) Sodium Level 148 mmol/L (136-145) Potassium Level 4.2 mmol/L (3.5-5.1) Chloride Level 111 mmol/L (98-107) Carbon Dioxide Level 24 mmol/L (21-32) Anion Gap 13 (6-14) Blood Urea Nitrogen 15 mg/dL (7-20) Creatinine 1.2 mg/dL (0.6-1.0) Estimated GFR (Cockcroft-Gault) 44.9 Glucose Level 103 mg/dL (70-99) Calcium Level 8.4 mg/dL (8.5-10.1) Laboratory Tests Test 12/23/17 11:30 12/23/17 16:35 12/23/17 20:30 12/24/17 04:05 Glucose (Fingerstick) 135 mg/dL (70-99) 98 mg/dL (70-99) 122 mg/dL (70-99) Sodium Level 148 mmol/L (136-145) Potassium Level 4.2 mmol/L (3.5-5.1) Chloride Level 111 mmol/L (98-107) Carbon Dioxide Level 24 mmol/L (21-32) Anion Gap 13 (6-14) Blood Urea Nitrogen 15 mg/dL (7-20) Creatinine 1.2 mg/dL (0.6-1.0) Estimated GFR (Cockcroft-Gault) 44.9 Glucose Level 103 mg/dL (70-99) Calcium Level 8.4 mg/dL (8.5-10.1) Test 12/24/17 07:51 Glucose (Fingerstick) 118 mg/dL (70-99) Assessment/Plan abdominal wall wound for OR 12/27 GILMER GARG MD Dec 24, 2017 09:18
--- NOTE | 2017-12-24 10:55 | PDOC ---
PROGRESS NOTES Subjective Subjective no new problems Objective Objective Vital Signs Date Time Temp Pulse Resp B/P (MAP) Pulse Ox O2 Delivery O2 Flow Rate FiO2 12/24/17 08:00 Room Air 12/24/17 07:00 98.0 90 16 145/74 (97) 95 98.0 Intake and Output 12/24/17 07:00 Intake Total 4680 ml Balance 4680 ml Intake Oral 1130 ml IV Total 1675 ml Other 1875 ml # Voids 8 # Bowel Movements 4 Physical Exam Abdomen: Soft, Other (moderate size abscess, necrosis LLQ) Heart: Regular rate, Normal S1, Normal S2, No murmurs Extremities: No clubbing, No cyanosis General: Alert, Oriented X3, No acute distress HEENT: PERRLA, Mucous membr. moist/pink Lungs: Clear to auscultation, Normal air movement MUSCULOSKELETAL: No deformity, No swelling Neuro: Normal speech, Sensation intact Psych/Mental Status: Mental status NL, Mood NL COMMENT dressings present abd wall Assessment Assessment FINAL IMPRESSION: lung nodule 2 cm rt middle lobe, new finding 1. Abdominal wall infection with skin necrosis, drainage and infection. 2. Recent wound dehiscence in the upper part of the incision. 3. Recent ventral hernia repair 2 months ago. 4. History of cerebrovascular accident with cognitive deficit. 5. Chronic obstructive pulmonary disease. 6. Hypertension. 7. Hypernatremia. 8. Hypokalemia. 9. 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 spoke with pts CT abd and pelvis today, no new changes,infection abd wall. dvt prevention labs improving NA 147 ,pot 3.4. c diff -neg. GI consult appreciated Comment Review of Relevant I have reviewed the following items ranulfo (where applicable) has been applied. Labs Laboratory Tests Test 12/23/17 11:30 12/23/17 16:35 12/23/17 20:30 12/24/17 04:05 Glucose (Fingerstick) 135 mg/dL (70-99) 98 mg/dL (70-99) 122 mg/dL (70-99) Sodium Level 148 mmol/L (136-145) Potassium Level 4.2 mmol/L (3.5-5.1) Chloride Level 111 mmol/L (98-107) Carbon Dioxide Level 24 mmol/L (21-32) Anion Gap 13 (6-14) Blood Urea Nitrogen 15 mg/dL (7-20) Creatinine 1.2 mg/dL (0.6-1.0) Estimated GFR (Cockcroft-Gault) 44.9 Glucose Level 103 mg/dL (70-99) Calcium Level 8.4 mg/dL (8.5-10.1) Test 12/24/17 07:51 Glucose (Fingerstick) 118 mg/dL (70-99) Microbiology 12/20/17 Blood Culture - Preliminary, Resulted NO GROWTH AFTER 3 DAYS 12/20/17 Anaerobic/Aerobic Culture - Preliminary, Resulted 12/20/17 Anaerobic Culture Result 1 (JLUIS) - Preliminary, Resulted 12/20/17 Aerobic Culture - Preliminary, Resulted 12/20/17 Aerobic Culture Result 1 (JLUIS) - Preliminary, Resulted 12/20/17 Aerobic Culture Result 2 (JLUIS) - Preliminary, Resulted 12/20/17 Gram Stain - Final, Resulted 12/20/17 Gram Stain Result 1 (JLUIS) - Final, Resulted 12/20/17 Gram Stain Result 2 (JLUIS) - Final, Resulted Medications Current Medications Dorzolamide HCl (Trusopt) 1 drop BID OU Last administered on 12/24/17at 08:10; Start 12/23/17 at 12:00 Loperamide HCl (Imodium) 2 mg TID PRN PO DIARRHEA; Start 12/23/17 at 11:45 Ondansetron HCl (Zofran) 4 mg PRN Q6HRS PRN IV MILD NAUSEA/VOMITING Last administered on 12/24/17at 06:37; Start 12/24/17 at 06:30 Ondansetron HCl (Zofran) 8 mg PRN Q6HRS PRN IV SEVERE NAUSEA/VOMITING; Start 12/24/17 at 06:30 Vitals/I & O Vital Sign - Last 24 Hours 12/23/17 12/23/17 12/23/17 12/23/17 11:00 15:00 19:00 19:55 Temp 97.5 97.5 97.7 97.5 97.5 97.7 Pulse 79 75 86 Resp 20 20 18 B/P (MAP) 148/76 (100) 155/70 (98) 158/67 (97) Pulse Ox 96 97 94 O2 Delivery Room Air Room Air Room Air Room Air 12/23/17 12/23/17 12/23/17 12/24/17 21:17 22:20 23:00 03:00 Temp 98.1 97.7 98.1 97.7 Pulse 86 83 Resp 16 16 18 18 B/P (MAP) 141/66 (91) 158/80 (106) Pulse Ox 98 96 O2 Delivery Room Air Room Air Room Air Room Air 12/24/17 12/24/17 07:00 08:00 Temp 98.0 98.0 Pulse 90 Resp 16 B/P (MAP) 145/74 (97) Pulse Ox 95 O2 Delivery Room Air Room Air Intake and Output 12/23/17 12/23/17 12/24/17 15:00 23:00 07:00 Intake Total 1200 ml 760 ml 2720 ml Balance 1200 ml 760 ml 2720 ml CHRISTOPH LE MD Dec 24, 2017 10:55
[2017-12-24] MEDS ORDERED: BUDESONIDE 0.5 MG/2 ML NEBU. NEB ONE (11:00)
[2017-12-24 11:37] VITALS: BP 170/81
--- NOTE | 2017-12-24 11:41 | PDOC ---
Infectious Disease Note Subjective Subjective Abdominal dressing changed recently, reviewed pic on 's phone Patient having diarrhea, about 6 episodes Appetite fair Denies N/V/cramps/pain Denies F/C/S ROS ROS per HPI otherwise neg Vital Sign Vital Signs Vital Signs Date Time Temp Pulse Resp B/P (MAP) Pulse Ox O2 Delivery O2 Flow Rate FiO2 12/24/17 08:00 Room Air 12/24/17 07:00 98.0 90 16 145/74 (97) 95 98.0 Physical Exam PHYSICAL EXAM GENERAL: Sitting on the side of the bed, flat affect, NAD HEENT: No thrush. LUNGS: Clear bilaterally. HEART: S1, S2, no murmurs. ABDOMEN: Soft. Wound dressing in place, dry EXTREMITIES: No edema, no cyanosis. NEUROLOGIC: Alert, oriented x 3 SKIN: warm without rash Labs Lab Laboratory Tests Test 12/23/17 16:35 12/23/17 20:30 12/24/17 04:05 12/24/17 07:51 Glucose (Fingerstick) 98 mg/dL (70-99) 122 mg/dL (70-99) 118 mg/dL (70-99) Sodium Level 148 mmol/L (136-145) Potassium Level 4.2 mmol/L (3.5-5.1) Chloride Level 111 mmol/L (98-107) Carbon Dioxide Level 24 mmol/L (21-32) Anion Gap 13 (6-14) Blood Urea Nitrogen 15 mg/dL (7-20) Creatinine 1.2 mg/dL (0.6-1.0) Estimated GFR (Cockcroft-Gault) 44.9 Glucose Level 103 mg/dL (70-99) Calcium Level 8.4 mg/dL (8.5-10.1) Test 12/24/17 11:22 Glucose (Fingerstick) 103 mg/dL (70-99) IMPRESSION: 1. Right upper lobe pulmonary mass raising the possibility of a primary lung malignancy. The mass is of sufficient size for FDG PET evaluation. 2. Mild patchy groundglass opacities in both lungs. This is a nonspecific finding which can be due to a variety of causes including inflammation, mild edema or chronic lung disease. 3. Hepatic steatosis. Micro 12/20/17 Blood Culture - Preliminary, Resulted NO GROWTH AFTER 3 DAYS ANAEROBIC-AEROBIC CULTURE Preliminary Preliminary report ANAEROBIC RES 1 Preliminary Comment No anaerobes recovered in 24 hours. AEROBIC CULT Preliminary Preliminary report AEROBIC RES 1 Preliminary Gram negative rods 4+ AEROBIC RES 2 Preliminary Mixed skin sary 4+ GRAM STAIN Final Final report GRAM STAIN RES 1 Final Comment Moderate amount of white blood cells. GRAM STAIN RES 2 Final Comment Many gram negative rods. Objective Assessment Progressive abdominal wall infection with eschar, necrosis, drainage -Failed OP p.o. antibiotics in Nov with Zyvox followed by doxycycline. CT abdomen unchanged from Sept History of hernia repair with mesh placement in 09/2017. History of wound infection with dehiscence, treated in 10/2017. Diabetes. History of subdural hematoma with mild cognitive dysfunction. History of previous exploratory laparotomy for small bowel resection, removal of mesh, ventral incisional hernia repair and debridement of abdominal wall, 08/10/2016. History of tobaccoism, quit. Status post hysterectomy. Chronic obstructive pulmonary disease. CKD Diarrhea. C. diff neg 12/21 R[address] mass on chest CT Plan Plan of Care Continue Zosyn, Diflucan, Zyvox Awaiting final culture results Due to presence of mesh and history of MRSA antibiotics alone may not be optimal. General surgery consulted, plans per pt are for I and D now moved to early next week D/w Local wound care Attending Co-Sign The patient was seen and interviewed as well as examined at the bedside. The chart was reviewed. The case was discussed. Agree with the plan of care. MIA VILA APRN Dec 24, 2017 11:41 MARIIA LAURENT MD Dec 24, 2017 14:46
[2017-12-24] MEDS: IPRATRPIUM/ALBUTEROL 0.5/2.5MG 3 ML NEBU. NEB SCH ×3 (11:50→20:14)
[2017-12-24 15:36] VITALS: BP 152/71
[2017-12-24 19:20] VITALS: BP 158/65
[2017-12-24] MEDS: BUDESONIDE 0.5 MG/2 ML NEBU. NEB SCH (20:14)
[2017-12-24] MEDS: AMITRIPTYLINE HCL 10 MG TABLET. PO SCH (20:44)
[2017-12-24] MEDS: HYDROcodone/APAP 5/325MG 1 TAB TABLET PO PRN (20:45)
[2017-12-24 23:24] VITALS: BP 121/42
[2017-12-25 03:10] VITALS: BP 120/56
[2017-12-25] MEDS: PIPERACILLIN/TAZOBACTAM 3.375 GM in IV NORMAL SALINE 50ML 50 ML IV SCH ×4 (05:54→23:28)
[2017-12-25] MEDS: IPRATRPIUM/ALBUTEROL 0.5/2.5MG 3 ML NEBU. NEB SCH ×4 (06:51→19:16)
[2017-12-25] MEDS: BUDESONIDE 0.5 MG/2 ML NEBU. NEB SCH ×2 (06:53→19:16)
[2017-12-25 07:00] VITALS: BP 148/64
--- NOTE | 2017-12-25 07:55 | PDOC ---
PULMONARY PROGRESS NOTES Subjective sob is better, breathing tx helped, off 02, no cough, no pain Vitals Vital Signs Date Time Temp Pulse Resp B/P (MAP) Pulse Ox O2 Delivery O2 Flow Rate FiO2 12/25/17 06:51 95 Room Air 12/25/17 03:10 97.6 88 20 120/56 (77) 97.6 ROS: No Nausea, No Chest Pain General: Alert, Oriented X4, No acute distress HEENT: Other (nc at perrl) Lungs: Crackles, Other Cardiovascular: S1, S2 Abdomen: Soft Neuro Exam: Alert Extremities: No Edema Skin: Warm Labs Laboratory Tests Test 12/23/17 08:03 12/23/17 11:30 12/23/17 16:35 12/23/17 20:30 Glucose (Fingerstick) 96 mg/dL (70-99) 135 mg/dL (70-99) 98 mg/dL (70-99) 122 mg/dL (70-99) Test 12/24/17 04:05 12/24/17 07:51 12/24/17 11:22 12/24/17 16:42 Sodium Level 148 mmol/L (136-145) Potassium Level 4.2 mmol/L (3.5-5.1) Chloride Level 111 mmol/L (98-107) Carbon Dioxide Level 24 mmol/L (21-32) Anion Gap 13 (6-14) Blood Urea Nitrogen 15 mg/dL (7-20) Creatinine 1.2 mg/dL (0.6-1.0) Estimated GFR (Cockcroft-Gault) 44.9 Glucose Level 103 mg/dL (70-99) Calcium Level 8.4 mg/dL (8.5-10.1) Glucose (Fingerstick) 118 mg/dL (70-99) 103 mg/dL (70-99) 129 mg/dL (70-99) Test 12/24/17 20:51 Glucose (Fingerstick) 129 mg/dL (70-99) Laboratory Tests Test 12/24/17 07:51 12/24/17 11:22 12/24/17 16:42 12/24/17 20:51 Glucose (Fingerstick) 118 mg/dL (70-99) 103 mg/dL (70-99) 129 mg/dL (70-99) 129 mg/dL (70-99) Medications Active Scripts Medications Dose Route/Sig Max Daily Dose Days Date Category Proctocream-Hc (Hydrocortisone) 30 Gm Cream..g. 1 Laly TP BID 12/21/17 Reported Gabapentin 300 Mg Capsule 300 Mg PO TID 12/21/17 Reported Anusol-Hc (Hydrocortisone Acetate) 25 Mg Supp.rect 1 Supp RC BID 12/21/17 Reported [place] 5-325 Tablet (Acetaminophen/Hydrocodone Bitart) 1 Each Tablet 1 Tab PO PRN Q6HRS PRN 12/21/17 Reported Clonidine Hcl 0.1 Mg Tablet 1 Tab PO PRN TID PRN 12/21/17 Reported Percocet 5-325 Mg Tablet (Oxycodone/Acetaminophen) 1 Each Tablet 1 Tab PO PRN Q6HRS PRN 12/16/17 Rx Zyvox (Linezolid) 600 Mg Tablet 600 Mg PO BID 14 11/15/17 Rx Azopt (Brinzolamide) 10 Ml Drops.susp 1 Drop OD BID 12/07/16 Reported Amitriptyline Hcl 10 Mg Tablet 10 Mg PO QHS 12/07/16 Reported Calcium (Calcium Carbonate) 600 Mg Tablet 600 Mg PO DAILY 12/02/16 Reported Multivitamins (Multivitamin) 1 Each Capsule 1 Each PO DAILY 12/02/16 Reported Meclizine Hcl 25 Mg Tablet 1 Tab PO PRN TID PRN 12/02/16 Reported Ventolin Hfa Inhaler (Albuterol Sulfate) 18 Gm Hfa.aer.ad 18 Gm INH PRN PRN 08/02/16 Reported Lumigan (Bimatoprost) 2.5 Ml Drops 2.5 Ml OD BID 08/02/16 Reported Combigan Eye Drops (Brimonidine Tartrate/Timolol) 5 Ml Drops 5 Ml OD BID 08/02/16 Reported Impression . IMPRESSION: 1. Abnormal CT chest revealing right upper lobe density suspicious for malignancy, not present in the film of 2007. 2. 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 3. Chronic obstructive pulmonary disease, unknown FEV1. 4. Tobacco dependent. 5. Progressive abdominal wall infection with recent hernia repair, status post mesh in September of 2017. 6. Diabetes. 7. History of subdural hematoma with mild cognitive dysfunction. 8. Tobacco dependent. Plan . PLAN: 1. recommend working up the right upper lobe density as an outpatient with pet scan, pfts and possible fine needle aspiration or surgical intervention. fu with dr ji 2. Continue current medical management. 3. the patient is scheduled to undergo surgery next week. We will follow along. 4. The patient is currently on antibiotics, which would cover any infectious process in the lungs. abx per id 5. The patient instructed on the importance of discontinuing tobacco use. 6. cont BD, ICS discussed w pt MARIO SABA MD Dec 25, 2017 07:55
[2017-12-25] MEDS: INSULIN LISPRO 300 UNITS/3 ML INSULN.PEN. SQ SCH ×3 (08:00→17:00)
[2017-12-25] MEDS: FLUCONAZOLE 100 MG TABLET. PO SCH (08:10)
[2017-12-25] MEDS: MULTIVITAMIN with MINERAL TABLET. PO SCH (08:10)
[2017-12-25] MEDS: ASCORBIC ACID 500 MG TABLET PO SCH ×2 (08:10→20:15)
[2017-12-25] MEDS: LACTOBACILLUS RHAMNOSUS GG 1 CAPSULE. PO SCH ×2 (08:10→20:15)
[2017-12-25] MEDS: CALCIUM CARBONATE 500 MG TABLET PO SCH (08:10)
[2017-12-25] MEDS: LINEZOLID 600 MG TABLET PO SCH ×2 (08:10→20:15)
[2017-12-25] MEDS: TIMOLOL 0.5% OPHTH SOLUTION 5ML BOTTLE. OD SCH ×2 (08:11→20:16)
[2017-12-25] MEDS: DORZOLAMIDE 2% OPHTH SOLUTION 10ML BOTTLE. OU SCH ×2 (08:12→20:37)
[2017-12-25] MEDS: BIMATOPROST OD SCH ×2 (08:13→20:37)
[2017-12-25] MEDS: BRIMONIDINE 0.2% OPHTH SOLUTION 5ML BOTTLE. OD SCH ×2 (08:14→20:17)
[2017-12-25] MEDS: COLLAGENASE 250 UNIT/GM TOPICAL OINTMENT 30GM TUBE. TP SCH (09:00)
[2017-12-25 11:00] VITALS: BP 156/69
--- NOTE | 2017-12-25 11:09 | PDOC ---
PROGRESS NOTES Subjective Subjective sleepy today Objective Objective Vital Signs Date Time Temp Pulse Resp B/P (MAP) Pulse Ox O2 Delivery O2 Flow Rate FiO2 12/25/17 08:00 Room Air 12/25/17 07:00 97.8 88 16 148/64 (92) 96 97.8 Intake and Output 12/25/17 07:00 Intake Total 1015 ml Balance 1015 ml Intake Oral 1015 ml # Voids 3 Physical Exam Abdomen: Soft, Other (moderate size abscess, necrosis LLQ) Heart: Regular rate, Normal S1, Normal S2, No murmurs Extremities: No clubbing, No cyanosis General: Alert, Oriented X3, No acute distress HEENT: PERRLA, Mucous membr. moist/pink Lungs: Clear to auscultation, Normal air movement MUSCULOSKELETAL: No deformity, No swelling Neuro: Normal speech, Sensation intact Psych/Mental Status: Mental status NL, Mood NL COMMENT dressings present abd wall Assessment Assessment FINAL IMPRESSION: lung nodule 2 cm rt middle lobe, new finding 1. Abdominal wall infection with skin necrosis, drainage and infection. 2. Recent wound dehiscence in the upper part of the incision. 3. Recent ventral hernia repair 2 months ago. 4. History of cerebrovascular accident with cognitive deficit. 5. Chronic obstructive pulmonary disease. 6. Hypertension. 7. Hypernatremia. 8. Hypokalemia. 9. 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 spoke with pts CT abd and pelvis today, no new changes,infection abd wall. dvt prevention labs improving NA 148 ,pot 4.0. c diff -neg. GI consult appreciated Comment Review of Relevant I have reviewed the following items ranulfo (where applicable) has been applied. Labs Laboratory Tests Test 12/24/17 11:22 12/24/17 16:42 12/24/17 20:51 Glucose (Fingerstick) 103 mg/dL (70-99) 129 mg/dL (70-99) 129 mg/dL (70-99) Microbiology 12/20/17 Blood Culture - Preliminary, Resulted NO GROWTH AFTER 4 DAYS 12/20/17 Anaerobic/Aerobic Culture - Preliminary, Resulted 12/20/17 Anaerobic Culture Result 1 (JLUIS) - Preliminary, Resulted 12/20/17 Aerobic Culture - Preliminary, Resulted 12/20/17 Aerobic Culture Result 1 (JLUIS) - Preliminary, Resulted 12/20/17 Aerobic Culture Result 2 (JLUIS) - Preliminary, Resulted 12/20/17 Gram Stain - Final, Resulted 12/20/17 Gram Stain Result 1 (JLUIS) - Final, Resulted 12/20/17 Gram Stain Result 2 (JLUIS) - Final, Resulted Medications Current Medications Albuterol/ Ipratropium (Duoneb) 3 ml RTQID NEB Last administered on 12/25/17at 06:51; Start 12/24/17 at 12:00 Budesonide (Pulmicort) 0.5 mg RTBID NEB Last administered on 12/25/17at 06:53; Start 12/24/17 at 20:00 Vitals/I & O Vital Sign - Last 24 Hours 12/24/17 12/24/17 12/24/17 12/24/17 11:37 11:52 15:18 15:36 Temp 97.9 97.4 97.9 97.4 Pulse 81 88 Resp 16 16 B/P (MAP) 170/81 (110) 152/71 (98) Pulse Ox 91 96 93 O2 Delivery Room Air Room Air Room Air Room Air 12/24/17 12/24/17 12/24/17 12/24/17 19:20 20:00 20:14 20:15 Temp 97.5 97.5 Pulse 89 Resp 18 B/P (MAP) 158/65 (96) Pulse Ox 94 O2 Delivery Room Air Room Air Room Air Room Air 12/24/17 12/24/17 12/24/17 12/25/17 20:45 21:50 23:24 03:10 Temp 97.8 97.6 97.8 97.6 Pulse 92 88 Resp 19 18 20 20 B/P (MAP) 121/42 (68) 120/56 (77) Pulse Ox 94 94 O2 Delivery Room Air Room Air Room Air Room Air 12/25/17 12/25/17 12/25/17 06:51 07:00 08:00 Temp 97.8 97.8 Pulse 88 Resp 16 B/P (MAP) 148/64 (92) Pulse Ox 95 96 O2 Delivery Room Air Room Air Room Air Intake and Output 12/24/17 12/24/17 12/25/17 15:00 23:00 07:00 Intake Total 475 ml 540 ml Balance 475 ml 540 ml CHRISTOPH LE MD Dec 25, 2017 11:09
--- NOTE | 2017-12-25 12:31 | PDOC ---
Infectious Disease Note Subjective Subjective IV out c/o some abdominal cramps Less diarrhea Appetite fair Denies N/V/F/C/S Vital Sign Vital Signs Vital Signs Date Time Temp Pulse Resp B/P (MAP) Pulse Ox O2 Delivery O2 Flow Rate FiO2 12/25/17 11:16 Room Air 12/25/17 11:00 98.4 81 16 156/69 (98) 96 98.4 Physical Exam PHYSICAL EXAM GENERAL: Sitting on the side of the bed, flat affect, NAD HEENT: No thrush. LUNGS: Clear bilaterally. HEART: S1, S2, no murmurs. ABDOMEN: Soft. Wound dressing in place, dry EXTREMITIES: No edema, no cyanosis. NEUROLOGIC: Alert, oriented x 3 SKIN: warm without rash Labs Lab Laboratory Tests Test 12/24/17 16:42 12/24/17 20:51 12/25/17 12:04 Glucose (Fingerstick) 129 mg/dL (70-99) 129 mg/dL (70-99) 121 mg/dL (70-99) Micro 12/20/17 Blood Culture - Preliminary, Resulted NO GROWTH AFTER 3 DAYS ANAEROBIC RES 1 Preliminary No anaerobes recovered in 24 hours. AEROBIC RES 1 Preliminary Proteus mirabilis AEROBIC RES 2 Preliminary Mixed skin sary Objective Assessment Progressive abdominal wall infection with eschar, necrosis, drainage. Proteus -Failed OP p.o. antibiotics in Nov with Zyvox followed by doxycycline. CT abdomen unchanged from Nov History of hernia repair with mesh placement in 09/2017. History of wound infection with dehiscence, treated in 10/2017. Diabetes. History of subdural hematoma with mild cognitive dysfunction. History of previous exploratory laparotomy for small bowel resection, removal of mesh, ventral incisional hernia repair and debridement of abdominal wall, 08/10/2016. History of tobaccoism, quit. Status post hysterectomy. Chronic obstructive pulmonary disease. CKD Diarrhea. C. diff neg 12/21 RUL mass on chest CT Plan Plan of Care Continue Zosyn, Diflucan, Zyvox Awaiting final culture results Due to presence of mesh and history of MRSA antibiotics alone may not be optimal. General surgery consulted, plans per pt are for I and D now moved to early next week Local wound care D/w Attending Co-Sign The patient was seen and interviewed as well as examined at the bedside. The chart was reviewed. The case was discussed. Agree with the plan of care. MIA VILA APRN Dec 25, 2017 12:31 MARIIA LAURENT MD Dec 25, 2017 13:54
--- NOTE | 2017-12-25 12:38 | PDOC ---
SURGICAL PROGRESS NOTE Subjective Lobo Wang no new complaints taking a breathing treatment Vital Signs Vital Signs Date Time Temp Pulse Resp B/P (MAP) Pulse Ox O2 Delivery O2 Flow Rate FiO2 12/25/17 11:16 Room Air 12/25/17 11:00 98.4 81 16 156/69 (98) 96 98.4 I&O Intake and Output 12/25/17 07:00 Intake Total 1015 ml Balance 1015 ml Intake Oral 1015 ml # Voids 3 PATIENT HAS A BRAN: No General: Alert, Cooperative, No acute distress Labs Laboratory Tests Test 12/23/17 16:35 12/23/17 20:30 12/24/17 04:05 12/24/17 07:51 Glucose (Fingerstick) 98 mg/dL (70-99) 122 mg/dL (70-99) 118 mg/dL (70-99) Sodium Level 148 mmol/L (136-145) Potassium Level 4.2 mmol/L (3.5-5.1) Chloride Level 111 mmol/L (98-107) Carbon Dioxide Level 24 mmol/L (21-32) Anion Gap 13 (6-14) Blood Urea Nitrogen 15 mg/dL (7-20) Creatinine 1.2 mg/dL (0.6-1.0) Estimated GFR (Cockcroft-Gault) 44.9 Glucose Level 103 mg/dL (70-99) Calcium Level 8.4 mg/dL (8.5-10.1) Test 12/24/17 11:22 12/24/17 16:42 12/24/17 20:51 12/25/17 12:04 Glucose (Fingerstick) 103 mg/dL (70-99) 129 mg/dL (70-99) 129 mg/dL (70-99) 121 mg/dL (70-99) Laboratory Tests Test 12/24/17 16:42 12/24/17 20:51 12/25/17 12:04 Glucose (Fingerstick) 129 mg/dL (70-99) 129 mg/dL (70-99) 121 mg/dL (70-99) Assessment/Plan abdominal wound for debridement GILMER Sky MD Dec 25, 2017 12:38
[2017-12-25 15:00] VITALS: BP 139/72
[2017-12-25] MEDS: POTASSIUM CL 30MEQ D5-0.45NACL 1,000 ML IV SCH ×2 (18:37→20:37)
[2017-12-25 19:00] VITALS: BP 165/67
[2017-12-25] MEDS: HYDROcodone/APAP 5/325MG 1 TAB TABLET PO PRN ×2 (19:09→23:30)
[2017-12-25] MEDS: AMITRIPTYLINE HCL 10 MG TABLET. PO SCH (20:15)
[2017-12-25 22:51] VITALS: BP 148/58
[2017-12-26 03:00] VITALS: BP 150/75
[2017-12-26] MEDS: PIPERACILLIN/TAZOBACTAM 3.375 GM in IV NORMAL SALINE 50ML 50 ML IV SCH ×4 (05:45→23:58)
[2017-12-26 07:00] VITALS: BP 122/30
[2017-12-26 07:04] LABS: BASO # 0.1 x10^3/uL (0.0-0.2); BASO % 1 % (0-3); EOS # 0.2 x10^3/uL (0.0-0.7); EOS % 4 % (0-3); HEMATOCRIT 32.6 % (36.0-47.0); HEMOGLOBIN 10.7 g/dL (12.0-15.5); LYMPH # 1.4 x10^3/uL (1.0-4.8); LYMPH % 29 % (24-48); MEAN CORPUSCULAR HEMOGLOBIN 27 pg (25-35); MEAN CORPUSCULAR HGB CONC 33 g/dL (31-37); MEAN CORPUSCULAR VOLUME 83 fL (79-100); MONO # 0.6 x10^3/uL (0.0-1.1); MONO % 13 % (0-9); NEUT # 2.7 x10^3uL (1.8-7.7); NEUT % 54 % (31-73); PLATELET COUNT 306 x10^3/uL (140-400); RED BLOOD COUNT 3.91 x10^6/uL (3.50-5.40); RED CELL DISTRIBUTION WIDTH 16.2 % (11.5-14.5); WHITE BLOOD COUNT 5.1 x10^3/uL (4.0-11.0)
[2017-12-26 07:13] LABS: CALCIUM 8.3 mg/dL (8.5-10.1); CREATININE 1.4 mg/dL (0.6-1.0); GFR 37.6; POTASSIUM 4.1 mmol/L (3.5-5.1)
[2017-12-26] MEDS: IPRATRPIUM/ALBUTEROL 0.5/2.5MG 3 ML NEBU. NEB SCH ×4 (07:21→19:41)
[2017-12-26] MEDS: BUDESONIDE 0.5 MG/2 ML NEBU. NEB SCH ×2 (07:22→19:41)
[2017-12-26] MEDS: INSULIN LISPRO 300 UNITS/3 ML INSULN.PEN. SQ SCH ×3 (08:00→17:00)
[2017-12-26] MEDS: FLUCONAZOLE 100 MG TABLET. PO SCH (08:29)
[2017-12-26] MEDS: LINEZOLID 600 MG TABLET PO SCH ×2 (08:29→21:38)
[2017-12-26] MEDS: LACTOBACILLUS RHAMNOSUS GG 1 CAPSULE. PO SCH ×2 (08:29→21:34)
[2017-12-26] MEDS: CALCIUM CARBONATE 500 MG TABLET PO SCH (08:29)
[2017-12-26] MEDS: DORZOLAMIDE 2% OPHTH SOLUTION 10ML BOTTLE. OU SCH (08:29)
[2017-12-26] MEDS: MULTIVITAMIN with MINERAL TABLET. PO SCH (08:29)
[2017-12-26] MEDS: ASCORBIC ACID 500 MG TABLET PO SCH ×2 (08:29→21:33)
[2017-12-26] MEDS: BIMATOPROST OD SCH ×2 (08:30→21:00)
[2017-12-26] MEDS: TIMOLOL 0.5% OPHTH SOLUTION 5ML BOTTLE. OD SCH ×2 (08:30→21:00)
[2017-12-26] MEDS: BRIMONIDINE 0.2% OPHTH SOLUTION 5ML BOTTLE. OD SCH ×2 (08:30→21:35)
--- NOTE | 2017-12-26 08:46 | PDOC ---
LUDMILA BROOKS [employer] WORKER 12/26/17 0846: SURGICAL PROGRESS NOTE Subjective no complaints Vital Signs Vital Signs Date Time Temp Pulse Resp B/P (MAP) Pulse Ox O2 Delivery O2 Flow Rate FiO2 12/26/17 07:23 97 Room Air 12/26/17 07:00 97.4 90 16 122/30 (60) 97.4 I&O Intake and Output 12/26/17 07:00 Intake Total 2120 ml Balance 2120 ml Intake Oral 920 ml Other 1200 ml # Voids 5 General: Alert, Oriented X3, Cooperative, No acute distress Abdomen: Soft, Other (wound with drainage, dressing in place) Labs Laboratory Tests Test 12/24/17 11:22 12/24/17 16:42 12/24/17 20:51 12/25/17 12:04 Glucose (Fingerstick) 103 mg/dL (70-99) 129 mg/dL (70-99) 129 mg/dL (70-99) 121 mg/dL (70-99) Test 12/25/17 16:23 12/25/17 21:03 12/26/17 05:24 12/26/17 07:57 Glucose (Fingerstick) 95 mg/dL (70-99) 126 mg/dL (70-99) 92 mg/dL (70-99) White Blood Count 5.1 x10^3/uL (4.0-11.0) Red Blood Count 3.91 x10^6/uL (3.50-5.40) Hemoglobin 10.7 g/dL (12.0-15.5) Hematocrit 32.6 % (36.0-47.0) Mean Corpuscular Volume 83 fL (79-100) Mean Corpuscular Hemoglobin 27 pg (25-35) Mean Corpuscular Hemoglobin Concent 33 g/dL (31-37) Red Cell Distribution Width 16.2 % (11.5-14.5) Platelet Count 306 x10^3/uL (140-400) Neutrophils (%) (Auto) 54 % (31-73) Lymphocytes (%) (Auto) 29 % (24-48) Monocytes (%) (Auto) 13 % (0-9) Eosinophils (%) (Auto) 4 % (0-3) Basophils (%) (Auto) 1 % (0-3) Neutrophils # (Auto) 2.7 x10^3uL (1.8-7.7) Lymphocytes # (Auto) 1.4 x10^3/uL (1.0-4.8) Monocytes # (Auto) 0.6 x10^3/uL (0.0-1.1) Eosinophils # (Auto) 0.2 x10^3/uL (0.0-0.7) Basophils # (Auto) 0.1 x10^3/uL (0.0-0.2) Sodium Level 142 mmol/L (136-145) Potassium Level 4.1 mmol/L (3.5-5.1) Chloride Level 108 mmol/L (98-107) Carbon Dioxide Level 26 mmol/L (21-32) Anion Gap 8 (6-14) Blood Urea Nitrogen 13 mg/dL (7-20) Creatinine 1.4 mg/dL (0.6-1.0) Estimated GFR (Cockcroft-Gault) 37.6 Glucose Level 100 mg/dL (70-99) Calcium Level 8.3 mg/dL (8.5-10.1) Laboratory Tests Test 12/25/17 12:04 12/25/17 16:23 12/25/17 21:03 12/26/17 05:24 Glucose (Fingerstick) 121 mg/dL (70-99) 95 mg/dL (70-99) 126 mg/dL (70-99) White Blood Count 5.1 x10^3/uL (4.0-11.0) Red Blood Count 3.91 x10^6/uL (3.50-5.40) Hemoglobin 10.7 g/dL (12.0-15.5) Hematocrit 32.6 % (36.0-47.0) Mean Corpuscular Volume 83 fL (79-100) Mean Corpuscular Hemoglobin 27 pg (25-35) Mean Corpuscular Hemoglobin Concent 33 g/dL (31-37) Red Cell Distribution Width 16.2 % (11.5-14.5) Platelet Count 306 x10^3/uL (140-400) Neutrophils (%) (Auto) 54 % (31-73) Lymphocytes (%) (Auto) 29 % (24-48) Monocytes (%) (Auto) 13 % (0-9) Eosinophils (%) (Auto) 4 % (0-3) Basophils (%) (Auto) 1 % (0-3) Neutrophils # (Auto) 2.7 x10^3uL (1.8-7.7) Lymphocytes # (Auto) 1.4 x10^3/uL (1.0-4.8) Monocytes # (Auto) 0.6 x10^3/uL (0.0-1.1) Eosinophils # (Auto) 0.2 x10^3/uL (0.0-0.7) Basophils # (Auto) 0.1 x10^3/uL (0.0-0.2) Sodium Level 142 mmol/L (136-145) Potassium Level 4.1 mmol/L (3.5-5.1) Chloride Level 108 mmol/L (98-107) Carbon Dioxide Level 26 mmol/L (21-32) Anion Gap 8 (6-14) Blood Urea Nitrogen 13 mg/dL (7-20) Creatinine 1.4 mg/dL (0.6-1.0) Estimated GFR (Cockcroft-Gault) 37.6 Glucose Level 100 mg/dL (70-99) Calcium Level 8.3 mg/dL (8.5-10.1) Test 12/26/17 07:57 Glucose (Fingerstick) 92 mg/dL (70-99) Assessment/Plan plan for OR tuesday DANYA EPSTEIN MD 12/26/17 2015: SURGICAL PROGRESS NOTE Assessment/Plan Pt seen and examined. Agree with Ms. Brooks's note Pt feels better dressing in place TO OR in AM for debridement and possible mesh removal R/R/B/A d/w pt and pt's . Risks, including,but not limited to: bleeding , infection, damage to surrounding structures, risk of anesthesia. They appear to understand, their questions are answered and they elect to proceed. LUDMILA BROOKS APRN Dec 26, 2017 08:46 DANYA EPSTEIN MD Dec 26, 2017 20:15
[2017-12-26] MEDS: COLLAGENASE 250 UNIT/GM TOPICAL OINTMENT 30GM TUBE. TP SCH (08:51)
--- NOTE | 2017-12-26 10:00 | PDOC ---
PROGRESS NOTES Subjective Subjective waiting for surgery,scheduled for tomorrow Objective Objective Vital Signs Date Time Temp Pulse Resp B/P (MAP) Pulse Ox O2 Delivery O2 Flow Rate FiO2 12/26/17 07:23 97 Room Air 12/26/17 07:00 97.4 90 16 122/30 (60) 97.4 Intake and Output 12/26/17 07:00 Intake Total 2120 ml Balance 2120 ml Intake Oral 920 ml Other 1200 ml # Voids 5 Physical Exam Abdomen: Soft, Other (wound with drainage, dressing in place) Heart: Regular rate, Normal S1, Normal S2, No murmurs Extremities: No clubbing, No cyanosis General: Alert, Oriented X3, Cooperative, No acute distress HEENT: PERRLA, Mucous membr. moist/pink Lungs: Clear to auscultation, Normal air movement MUSCULOSKELETAL: No deformity, No swelling Neuro: Normal speech, Sensation intact Psych/Mental Status: Mental status NL, Mood NL COMMENT dressings present abd wall Assessment Assessment FINAL IMPRESSION: lung nodule 2 cm rt middle lobe, new finding 1. Abdominal wall infection with skin necrosis, drainage and infection. 2. Recent wound dehiscence in the upper part of the incision. 3. Recent ventral hernia repair 2 months ago. 4. History of cerebrovascular accident with cognitive deficit. 5. Chronic obstructive pulmonary disease. 6. Hypertension. 7. Hypernatremia. 8. Hypokalemia. 9. Borderline DM PLAN: IV antibiotics for now, spoke with ID proteus and pseudomonas in wound c/s surgery scheduled for tuesday CT chest positive for lung nodule less than 2 cm , will do out pt work up spoke with pts CT abd and pelvis today, no new changes,infection abd wall. dvt prevention labs improving c diff -neg. GI consult appreciated Comment Review of Relevant I have reviewed the following items ranulfo (where applicable) has been applied. Labs Laboratory Tests Test 12/25/17 12:04 12/25/17 16:23 12/25/17 21:03 12/26/17 05:24 Glucose (Fingerstick) 121 mg/dL (70-99) 95 mg/dL (70-99) 126 mg/dL (70-99) White Blood Count 5.1 x10^3/uL (4.0-11.0) Red Blood Count 3.91 x10^6/uL (3.50-5.40) Hemoglobin 10.7 g/dL (12.0-15.5) Hematocrit 32.6 % (36.0-47.0) Mean Corpuscular Volume 83 fL (79-100) Mean Corpuscular Hemoglobin 27 pg (25-35) Mean Corpuscular Hemoglobin Concent 33 g/dL (31-37) Red Cell Distribution Width 16.2 % (11.5-14.5) Platelet Count 306 x10^3/uL (140-400) Neutrophils (%) (Auto) 54 % (31-73) Lymphocytes (%) (Auto) 29 % (24-48) Monocytes (%) (Auto) 13 % (0-9) Eosinophils (%) (Auto) 4 % (0-3) Basophils (%) (Auto) 1 % (0-3) Neutrophils # (Auto) 2.7 x10^3uL (1.8-7.7) Lymphocytes # (Auto) 1.4 x10^3/uL (1.0-4.8) Monocytes # (Auto) 0.6 x10^3/uL (0.0-1.1) Eosinophils # (Auto) 0.2 x10^3/uL (0.0-0.7) Basophils # (Auto) 0.1 x10^3/uL (0.0-0.2) Sodium Level 142 mmol/L (136-145) Potassium Level 4.1 mmol/L (3.5-5.1) Chloride Level 108 mmol/L (98-107) Carbon Dioxide Level 26 mmol/L (21-32) Anion Gap 8 (6-14) Blood Urea Nitrogen 13 mg/dL (7-20) Creatinine 1.4 mg/dL (0.6-1.0) Estimated GFR (Cockcroft-Gault) 37.6 Glucose Level 100 mg/dL (70-99) Calcium Level 8.3 mg/dL (8.5-10.1) Test 12/26/17 07:57 Glucose (Fingerstick) 92 mg/dL (70-99) Microbiology 12/20/17 Blood Culture - Final, Complete NO GROWTH AFTER 5 DAYS 12/20/17 Anaerobic/Aerobic Culture - Preliminary, Resulted 12/20/17 Anaerobic Culture Result 1 (JLUIS) - Preliminary, Resulted 12/20/17 Aerobic Culture - Final, Resulted 12/20/17 Aerobic Culture Result 1 (JLUIS) - Final, Resulted 12/20/17 Aerobic Culture Result 2 (JLUIS) - Final, Resulted 12/20/17 Antimicrobic Susceptibility - Final, Resulted 12/20/17 Gram Stain - Final, Resulted 12/20/17 Gram Stain Result 1 (JLUIS) - Final, Resulted 12/20/17 Gram Stain Result 2 (JLUIS) - Final, Resulted Vitals/I & O Vital Sign - Last 24 Hours 12/25/17 12/25/17 12/25/17 12/25/17 11:00 11:16 15:00 15:18 Temp 98.4 98.2 98.4 98.2 Pulse 81 83 Resp 16 16 B/P (MAP) 156/69 (98) 139/72 (94) Pulse Ox 96 95 95 O2 Delivery Room Air Room Air Room Air Room Air 12/25/17 12/25/17 12/25/17 12/25/17 19:00 19:09 19:17 19:17 Temp 98.0 98.0 Pulse 80 Resp 17 20 B/P (MAP) 165/67 (99) Pulse Ox 96 95 95 O2 Delivery Room Air Room Air Room Air Room Air 12/25/17 12/25/17 12/25/17 12/26/17 20:00 22:51 23:30 00:30 Temp 97.7 97.7 Pulse 96 Resp 17 16 16 B/P (MAP) 148/58 (88) Pulse Ox 99 99 O2 Delivery Room Air Room Air Room Air Room Air 12/26/17 12/26/17 12/26/17 03:00 07:00 07:23 Temp 98.0 97.4 98.0 97.4 Pulse 89 90 Resp 16 16 B/P (MAP) 150/75 (100) 122/30 (60) Pulse Ox 96 98 97 O2 Delivery Room Air Room Air Room Air Intake and Output 12/25/17 12/25/17 12/26/17 15:00 23:00 07:00 Intake Total 600 ml 1520 ml Balance 600 ml 1520 ml CHRISTOPH LE MD Dec 26, 2017 10:00
--- NOTE | 2017-12-26 10:03 | PDOC ---
Infectious Disease Note Subjective Subjective A little abd discomfort Less diarrhea Appetite fair Denies N/V/F/C/S ROS ROS o/w neg Vital Sign Vital Signs Vital Signs Date Time Temp Pulse Resp B/P (MAP) Pulse Ox O2 Delivery O2 Flow Rate FiO2 12/26/17 07:23 97 Room Air 12/26/17 07:00 97.4 90 16 122/30 (60) 97.4 Physical Exam PHYSICAL EXAM GENERAL: Lying in the side of the bed, flat affect, NAD HEENT: No thrush. LUNGS: Clear bilaterally. HEART: S1, S2, no murmurs. ABDOMEN: Soft. Wound dressing in place, dry/binder EXTREMITIES: No edema, no cyanosis. NEUROLOGIC: Alert, oriented x 3 SKIN: warm without rash Labs Lab Laboratory Tests Test 12/25/17 12:04 12/25/17 16:23 12/25/17 21:03 12/26/17 05:24 Glucose (Fingerstick) 121 mg/dL (70-99) 95 mg/dL (70-99) 126 mg/dL (70-99) White Blood Count 5.1 x10^3/uL (4.0-11.0) Red Blood Count 3.91 x10^6/uL (3.50-5.40) Hemoglobin 10.7 g/dL (12.0-15.5) Hematocrit 32.6 % (36.0-47.0) Mean Corpuscular Volume 83 fL (79-100) Mean Corpuscular Hemoglobin 27 pg (25-35) Mean Corpuscular Hemoglobin Concent 33 g/dL (31-37) Red Cell Distribution Width 16.2 % (11.5-14.5) Platelet Count 306 x10^3/uL (140-400) Neutrophils (%) (Auto) 54 % (31-73) Lymphocytes (%) (Auto) 29 % (24-48) Monocytes (%) (Auto) 13 % (0-9) Eosinophils (%) (Auto) 4 % (0-3) Basophils (%) (Auto) 1 % (0-3) Neutrophils # (Auto) 2.7 x10^3uL (1.8-7.7) Lymphocytes # (Auto) 1.4 x10^3/uL (1.0-4.8) Monocytes # (Auto) 0.6 x10^3/uL (0.0-1.1) Eosinophils # (Auto) 0.2 x10^3/uL (0.0-0.7) Basophils # (Auto) 0.1 x10^3/uL (0.0-0.2) Sodium Level 142 mmol/L (136-145) Potassium Level 4.1 mmol/L (3.5-5.1) Chloride Level 108 mmol/L (98-107) Carbon Dioxide Level 26 mmol/L (21-32) Anion Gap 8 (6-14) Blood Urea Nitrogen 13 mg/dL (7-20) Creatinine 1.4 mg/dL (0.6-1.0) Estimated GFR (Cockcroft-Gault) 37.6 Glucose Level 100 mg/dL (70-99) Calcium Level 8.3 mg/dL (8.5-10.1) Test 12/26/17 07:57 Glucose (Fingerstick) 92 mg/dL (70-99) Micro Microbiology Proteus mirabilis 4+ AEROBIC RES 2 Final Comment Pseudomonas aeruginosa 4+ ANTIMICROBIAL SUSCEPTIBILITY Final Comment S = Susceptible; I = Intermediate; R = Resistant P = Positive; N = Negative MICS are expressed in micrograms per mL Antibiotic RSLT#1 RSLT#2 RSLT#3 RSLT#4 Amikacin S<=2 Ampicillin S<=2 Cefepime S<=0.12 S =2 Ceftazidime S =4 Ceftriaxone S<=0.25 Cefuroxime S<=1 Ciprofloxacin S<=0.25 S<=0.25 Ertapenem S<=0.12 Gentamicin S<=1 S<=1 Imipenem S =2 CONTINUED ON NEXT PAGE RUN DATE: 12/25/17 PAGE 2 RUN TIME: 1908 [facility] [address] [place] [address] Christopher Barroso M.D., Window Clerk SPEC: [id number] PATIENT: RICKY BATISTA [id number] ( Continued) Procedure Result ANTIMICROBIAL SUSCEPTIBILITY Final (continued) Levofloxacin S<=0.12 S =1 Meropenem S =1 S<=0.25 Piperacillin S =8 Piperacillin/Tazobactam S<=4 Tetracycline R>=16 Ticarcillin S =32 Tobramycin S<=1 S<=1 Trimethoprim/Sulfa S<=20 12/20/17 Blood Culture - Final, Complete NO GROWTH AFTER 5 DAYS 12/20/17 Anaerobic/Aerobic Culture - Preliminary, Resulted 12/20/17 Anaerobic Culture Result 1 (JLUIS) - Preliminary, Resulted 12/20/17 Aerobic Culture - Final, Resulted 12/20/17 Aerobic Culture Result 1 (JLUIS) - Final, Resulted 12/20/17 Aerobic Culture Result 2 (JLUIS) - Final, Resulted 12/20/17 Antimicrobic Susceptibility - Final, Resulted 12/20/17 Gram Stain - Final, Resulted 12/20/17 Gram Stain Result 1 (JLUIS) - Final, Resulted 12/20/17 Gram Stain Result 2 (JLUIS) - Final, Resulted Objective Assessment Progressive abdominal wall infection with eschar, necrosis, drainage. Proteus/ PSA -Failed OP p.o. antibiotics in Nov with Zyvox followed by doxycycline. CT abdomen unchanged from Nov History of hernia repair with mesh placement in 09/2017. History of wound infection with dehiscence, treated in 10/2017. Diabetes. History of subdural hematoma with mild cognitive dysfunction. History of previous exploratory laparotomy for small bowel resection, removal of mesh, ventral incisional hernia repair and debridement of abdominal wall, 08/10/2016. History of tobaccoism, quit. Status post hysterectomy. Chronic obstructive pulmonary disease. CKD - mild increase today Diarrhea. C. diff neg 12/21 RUL mass on chest CT Plan Plan of Care Continue Zosyn, Diflucan, Zyvox Awaiting final culture results Surgery scheduled for 12/27 BMP in am Due to presence of mesh and history of MRSA antibiotics alone may not be optimal. Local wound care D/w MARII PRINCE MD Dec 26, 2017 10:03
[2017-12-26 11:00] VITALS: BP 156/63
--- NOTE | 2017-12-26 11:05 | PDOC ---
Subjective: Subjective: I suggested her diarrhea was better based on d/w RN - she says "I've been pooping all day and all night!" She reports 4-5 stools overnight and 4 stools this morning. Says she's not taking Imodium. Significant other says he should be asked about what's going on because she is forgetful w/ past "brain surgery." He says prior to admission she was stooling every 5-10 minutes. Frequency and consistency of stooling has improved since admission along w/ anal pain and he is "satisfied" with her care. He says she' s probably taking Imodium. Objective: Objective: Last stools charted 12/24 - RN did not receive report of ongoing issues w/ diarrhea or anal pain. Reviewed other notes - plans for surgery tomorrow. Imodium ordered PRN - not given. Vital Signs: Vital Signs Date Time Temp Pulse Resp B/P (MAP) Pulse Ox O2 Delivery O2 Flow Rate FiO2 12/26/17 08:00 Room Air 12/26/17 07:23 97 12/26/17 07:00 97.4 90 16 122/30 (60) 97.4 Labs: Laboratory Tests Test 12/25/17 12:04 12/25/17 16:23 12/25/17 21:03 12/26/17 05:24 Glucose (Fingerstick) 121 mg/dL 95 mg/dL 126 mg/dL White Blood Count 5.1 x10^3/uL Red Blood Count 3.91 x10^6/uL Hemoglobin 10.7 g/dL Hematocrit 32.6 % Mean Corpuscular Volume 83 fL Mean Corpuscular Hemoglobin 27 pg Mean Corpuscular Hemoglobin Concent 33 g/dL Red Cell Distribution Width 16.2 % Platelet Count 306 x10^3/uL Neutrophils (%) (Auto) 54 % Lymphocytes (%) (Auto) 29 % Monocytes (%) (Auto) 13 % Eosinophils (%) (Auto) 4 % Basophils (%) (Auto) 1 % Neutrophils # (Auto) 2.7 x10^3uL Lymphocytes # (Auto) 1.4 x10^3/uL Monocytes # (Auto) 0.6 x10^3/uL Eosinophils # (Auto) 0.2 x10^3/uL Basophils # (Auto) 0.1 x10^3/uL Sodium Level 142 mmol/L Potassium Level 4.1 mmol/L Chloride Level 108 mmol/L Carbon Dioxide Level 26 mmol/L Anion Gap 8 Blood Urea Nitrogen 13 mg/dL Creatinine 1.4 mg/dL Estimated GFR (Cockcroft-Gault) 37.6 Glucose Level 100 mg/dL Calcium Level 8.3 mg/dL Test 12/26/17 07:57 Glucose (Fingerstick) 92 mg/dL PE: GEN: NAD, on commode LUNGS: room air HEART: RR NEURO/PSYCH: appropriate but is apparently forgetful A/P: H/o hernia repairs, abd wound Perianal irritation/pain, diarrhea - better -- Varying history. Would continue topical treatment, use Imodium PRN. Plans for OR tomorrow. SHAHNAZ SABA Dec 26, 2017 11:05
[2017-12-26] MEDS: POTASSIUM CL 30MEQ D5-0.45NACL 1,000 ML IV SCH (12:16)
--- NOTE | 2017-12-26 13:20 | PDOC ---
PULMONARY PROGRESS NOTES Subjective sob is better, breathing tx helped, off 02, no cough, no pain Vitals Vital Signs Date Time Temp Pulse Resp B/P (MAP) Pulse Ox O2 Delivery O2 Flow Rate FiO2 12/26/17 11:56 Room Air 12/26/17 07:23 97 12/26/17 07:00 97.4 90 16 122/30 (60) 97.4 ROS: No Nausea, No Chest Pain General: Alert, Oriented X4, No acute distress HEENT: Other (nc at perrl) Lungs: Clear Cardiovascular: S1, S2 Abdomen: Soft, Other (wound dressing) Neuro Exam: Alert Extremities: No Edema Skin: Warm Labs Laboratory Tests Test 12/24/17 16:42 12/24/17 20:51 12/25/17 12:04 12/25/17 16:23 Glucose (Fingerstick) 129 mg/dL (70-99) 129 mg/dL (70-99) 121 mg/dL (70-99) 95 mg/dL (70-99) Test 12/25/17 21:03 12/26/17 05:24 12/26/17 07:57 12/26/17 11:54 Glucose (Fingerstick) 126 mg/dL (70-99) 92 mg/dL (70-99) 109 mg/dL (70-99) White Blood Count 5.1 x10^3/uL (4.0-11.0) Red Blood Count 3.91 x10^6/uL (3.50-5.40) Hemoglobin 10.7 g/dL (12.0-15.5) Hematocrit 32.6 % (36.0-47.0) Mean Corpuscular Volume 83 fL (79-100) Mean Corpuscular Hemoglobin 27 pg (25-35) Mean Corpuscular Hemoglobin Concent 33 g/dL (31-37) Red Cell Distribution Width 16.2 % (11.5-14.5) Platelet Count 306 x10^3/uL (140-400) Neutrophils (%) (Auto) 54 % (31-73) Lymphocytes (%) (Auto) 29 % (24-48) Monocytes (%) (Auto) 13 % (0-9) Eosinophils (%) (Auto) 4 % (0-3) Basophils (%) (Auto) 1 % (0-3) Neutrophils # (Auto) 2.7 x10^3uL (1.8-7.7) Lymphocytes # (Auto) 1.4 x10^3/uL (1.0-4.8) Monocytes # (Auto) 0.6 x10^3/uL (0.0-1.1) Eosinophils # (Auto) 0.2 x10^3/uL (0.0-0.7) Basophils # (Auto) 0.1 x10^3/uL (0.0-0.2) Sodium Level 142 mmol/L (136-145) Potassium Level 4.1 mmol/L (3.5-5.1) Chloride Level 108 mmol/L (98-107) Carbon Dioxide Level 26 mmol/L (21-32) Anion Gap 8 (6-14) Blood Urea Nitrogen 13 mg/dL (7-20) Creatinine 1.4 mg/dL (0.6-1.0) Estimated GFR (Cockcroft-Gault) 37.6 Glucose Level 100 mg/dL (70-99) Calcium Level 8.3 mg/dL (8.5-10.1) Laboratory Tests Test 12/25/17 16:23 12/25/17 21:03 12/26/17 05:24 12/26/17 07:57 Glucose (Fingerstick) 95 mg/dL (70-99) 126 mg/dL (70-99) 92 mg/dL (70-99) White Blood Count 5.1 x10^3/uL (4.0-11.0) Red Blood Count 3.91 x10^6/uL (3.50-5.40) Hemoglobin 10.7 g/dL (12.0-15.5) Hematocrit 32.6 % (36.0-47.0) Mean Corpuscular Volume 83 fL (79-100) Mean Corpuscular Hemoglobin 27 pg (25-35) Mean Corpuscular Hemoglobin Concent 33 g/dL (31-37) Red Cell Distribution Width 16.2 % (11.5-14.5) Platelet Count 306 x10^3/uL (140-400) Neutrophils (%) (Auto) 54 % (31-73) Lymphocytes (%) (Auto) 29 % (24-48) Monocytes (%) (Auto) 13 % (0-9) Eosinophils (%) (Auto) 4 % (0-3) Basophils (%) (Auto) 1 % (0-3) Neutrophils # (Auto) 2.7 x10^3uL (1.8-7.7) Lymphocytes # (Auto) 1.4 x10^3/uL (1.0-4.8) Monocytes # (Auto) 0.6 x10^3/uL (0.0-1.1) Eosinophils # (Auto) 0.2 x10^3/uL (0.0-0.7) Basophils # (Auto) 0.1 x10^3/uL (0.0-0.2) Sodium Level 142 mmol/L (136-145) Potassium Level 4.1 mmol/L (3.5-5.1) Chloride Level 108 mmol/L (98-107) Carbon Dioxide Level 26 mmol/L (21-32) Anion Gap 8 (6-14) Blood Urea Nitrogen 13 mg/dL (7-20) Creatinine 1.4 mg/dL (0.6-1.0) Estimated GFR (Cockcroft-Gault) 37.6 Glucose Level 100 mg/dL (70-99) Calcium Level 8.3 mg/dL (8.5-10.1) Test 12/26/17 11:54 Glucose (Fingerstick) 109 mg/dL (70-99) Medications Active Scripts Medications Dose Route/Sig Max Daily Dose Days Date Category Proctocream-Hc (Hydrocortisone) 30 Gm Cream..g. 1 Laly TP BID 12/21/17 Reported Gabapentin 300 Mg Capsule 300 Mg PO TID 12/21/17 Reported Anusol-Hc (Hydrocortisone Acetate) 25 Mg Supp.rect 1 Supp RC BID 12/21/17 Reported [place] 5-325 Tablet (Acetaminophen/Hydrocodone Bitart) 1 Each Tablet 1 Tab PO PRN Q6HRS PRN 12/21/17 Reported Clonidine Hcl 0.1 Mg Tablet 1 Tab PO PRN TID PRN 12/21/17 Reported Percocet 5-325 Mg Tablet (Oxycodone/Acetaminophen) 1 Each Tablet 1 Tab PO PRN Q6HRS PRN 12/16/17 Rx Zyvox (Linezolid) 600 Mg Tablet 600 Mg PO BID 14 11/15/17 Rx Azopt (Brinzolamide) 10 Ml Drops.susp 1 Drop OD BID 9/26/17 Reported Amitriptyline Hcl 10 Mg Tablet 10 Mg PO QHS 12/07/16 Reported Calcium (Calcium Carbonate) 600 Mg Tablet 600 Mg PO DAILY 12/02/16 Reported Multivitamins (Multivitamin) 1 Each Capsule 1 Each PO DAILY 12/02/16 Reported Meclizine Hcl 25 Mg Tablet 1 Tab PO PRN TID PRN 12/02/16 Reported Ventolin Hfa Inhaler (Albuterol Sulfate) 18 Gm Hfa.aer.ad 18 Gm INH PRN PRN 08/02/16 Reported Lumigan (Bimatoprost) 2.5 Ml Drops 2.5 Ml OD BID 08/02/16 Reported Combigan Eye Drops (Brimonidine Tartrate/Timolol) 5 Ml Drops 5 Ml OD BID 08/02/16 Reported Impression . IMPRESSION: 1. Abnormal CT chest revealing right upper lobe density suspicious for malignancy, not present in the film of 2007. 2. 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 3. Chronic obstructive pulmonary disease, unknown FEV1. 4. Tobacco dependent. 5. Progressive abdominal wall infection with recent hernia repair, status post mesh in September of 2017. 6. Diabetes. 7. History of subdural hematoma with mild cognitive dysfunction. 8. Tobacco dependent. Plan . PLAN: 1. recommend working up the right upper lobe density as an outpatient with pet scan, pfts and possible fine needle aspiration or surgical intervention. fu with dr ji 2. Continue current medical management. 3. the patient is scheduled to undergo wound debridement in am. We will follow along. 4. The patient is currently on antibiotics, which would cover any infectious process in the lungs. abx per id 5. The patient instructed on the importance of discontinuing tobacco use. 6. cont BD, ICS discussed w pt ARACELI MICHAEL MD Dec 26, 2017 13:20
[2017-12-26] MEDS: HYDROcodone/APAP 5/325MG 1 TAB TABLET PO PRN (15:13)
[2017-12-26] MEDS: HYDROCORTISONE 2.5% RECTAL CREAM 30GM TUBE. RC PRN (15:15)
[2017-12-26 15:26] VITALS: BP 149/52
[2017-12-26 19:00] VITALS: BP 143/62
[2017-12-26] MEDS: DORZOLAMIDE 2% OPHTH SOLUTION 10ML BOTTLE. OD SCH (21:00)
[2017-12-26] MEDS: AMITRIPTYLINE HCL 10 MG TABLET. PO SCH (21:34)
[2017-12-26 23:00] VITALS: BP 120/60
[2017-12-27] VITALS (12 sets, daily range): BP systolic 126–181; BP diastolic 57–87
[2017-12-27] MEDS: HYDROcodone/APAP 5/325MG 1 TAB TABLET PO PRN (01:43)
[2017-12-27] MEDS: POTASSIUM CL 30MEQ D5-0.45NACL 1,000 ML IV SCH ×2 (01:45→14:30)
[2017-12-27] MEDS: PIPERACILLIN/TAZOBACTAM 3.375 GM in IV NORMAL SALINE 50ML 50 ML IV SCH ×3 (05:47→21:18)
[2017-12-27] MEDS ORDERED: BUPIVAC MPF-EPI 0.5%-1:200000 30 ML VIAL. ONE (05:59)
[2017-12-27] MEDS ORDERED: PROCHLORPERAZINE 10 MG/2 ML VIAL. IV PRN (07:00)
[2017-12-27] MEDS ORDERED: fentaNYL PF VIAL 100 MCG/2 ML VIAL IV PRN ×2 (07:00)
[2017-12-27] MEDS ORDERED: ONDANSETRON PF 4 MG/2 ML VIAL. IV PRN (07:00)
[2017-12-27] MEDS ORDERED: MORPHINE SULFATE 2 MG/ML VIAL. IV PRN (07:00)
[2017-12-27] MEDS ORDERED: IV RINGERS,LACTATED 1000ML 1,000 ML IV SCH (07:00)
[2017-12-27] MEDS ORDERED: LIDOCAINE 1% PF 2 ML VIAL. ID PRN (07:00)
[2017-12-27] MEDS ORDERED: HYDROmorphone 2 MG/ML VIAL IV PRN (07:00)
[2017-12-27] MEDS: BUDESONIDE 0.5 MG/2 ML NEBU. NEB SCH ×2 (07:14→20:26)
[2017-12-27] MEDS: IPRATRPIUM/ALBUTEROL 0.5/2.5MG 3 ML NEBU. NEB SCH ×4 (07:14→20:26)
[2017-12-27] MEDS: INSULIN LISPRO 300 UNITS/3 ML INSULN.PEN. SQ SCH ×3 (08:00→17:00)
[2017-12-27 08:01] LABS: CALCIUM 8.9 mg/dL (8.5-10.1); CREATININE 1.3 mg/dL (0.6-1.0)
[2017-12-27] MEDS ORDERED: PROPOFOL 20 ML IV ONE ×2 (08:11→09:37)
[2017-12-27] MEDS ORDERED: ROCURONIUM 50 MG/5 ML VIAL. ONE (08:11)
[2017-12-27] MEDS ORDERED: fentaNYL PF VIAL 100 MCG/2 ML VIAL ONE ×2 (08:12→09:37)
--- NOTE | 2017-12-27 08:20 | PDOC ---
SURGICAL PROGRESS NOTE Subjective 67 yo F with abd wall infection/necrosis and concern for mesh infection TO OR for abd wall debridement, possible mesh removal R/R/B/A d/w pt and pt's supportive . Risks, including, but not limited to: bleeding, infection, damage to surrounding structures, risk of anesthesia. They appear to understand, their questions are answered and they agree to proceed. Vital Signs Vital Signs Date Time Temp Pulse Resp B/P (MAP) Pulse Ox O2 Delivery O2 Flow Rate FiO2 12/27/17 08:03 97.9 98 20 150/65 96 Room Air 97.9 I&O Intake and Output 12/27/17 07:00 Intake Total 2270 ml Balance 2270 ml Intake Oral 120 ml IV Total 2150 ml # Voids 11 # Bowel Movements 4 Labs Laboratory Tests Test 12/25/17 12:04 12/25/17 16:23 12/25/17 21:03 12/26/17 05:24 Glucose (Fingerstick) 121 mg/dL (70-99) 95 mg/dL (70-99) 126 mg/dL (70-99) White Blood Count 5.1 x10^3/uL (4.0-11.0) Red Blood Count 3.91 x10^6/uL (3.50-5.40) Hemoglobin 10.7 g/dL (12.0-15.5) Hematocrit 32.6 % (36.0-47.0) Mean Corpuscular Volume 83 fL (79-100) Mean Corpuscular Hemoglobin 27 pg (25-35) Mean Corpuscular Hemoglobin Concent 33 g/dL (31-37) Red Cell Distribution Width 16.2 % (11.5-14.5) Platelet Count 306 x10^3/uL (140-400) Neutrophils (%) (Auto) 54 % (31-73) Lymphocytes (%) (Auto) 29 % (24-48) Monocytes (%) (Auto) 13 % (0-9) Eosinophils (%) (Auto) 4 % (0-3) Basophils (%) (Auto) 1 % (0-3) Neutrophils # (Auto) 2.7 x10^3uL (1.8-7.7) Lymphocytes # (Auto) 1.4 x10^3/uL (1.0-4.8) Monocytes # (Auto) 0.6 x10^3/uL (0.0-1.1) Eosinophils # (Auto) 0.2 x10^3/uL (0.0-0.7) Basophils # (Auto) 0.1 x10^3/uL (0.0-0.2) Sodium Level 142 mmol/L (136-145) Potassium Level 4.1 mmol/L (3.5-5.1) Chloride Level 108 mmol/L (98-107) Carbon Dioxide Level 26 mmol/L (21-32) Anion Gap 8 (6-14) Blood Urea Nitrogen 13 mg/dL (7-20) Creatinine 1.4 mg/dL (0.6-1.0) Estimated GFR (Cockcroft-Gault) 37.6 Glucose Level 100 mg/dL (70-99) Calcium Level 8.3 mg/dL (8.5-10.1) Test 12/26/17 07:57 12/26/17 11:54 12/26/17 16:57 12/26/17 21:02 Glucose (Fingerstick) 92 mg/dL (70-99) 109 mg/dL (70-99) 137 mg/dL (70-99) 160 mg/dL (70-99) Test 12/27/17 07:15 Sodium Level 142 mmol/L (136-145) Potassium Level 4.0 mmol/L (3.5-5.1) Chloride Level 106 mmol/L (98-107) Carbon Dioxide Level 28 mmol/L (21-32) Anion Gap 8 (6-14) Blood Urea Nitrogen 10 mg/dL (7-20) Creatinine 1.3 mg/dL (0.6-1.0) Estimated GFR (Cockcroft-Gault) 41.0 Glucose Level 104 mg/dL (70-99) Calcium Level 8.9 mg/dL (8.5-10.1) Laboratory Tests Test 12/26/17 11:54 12/26/17 16:57 12/26/17 21:02 12/27/17 07:15 Glucose (Fingerstick) 109 mg/dL (70-99) 137 mg/dL (70-99) 160 mg/dL (70-99) Sodium Level 142 mmol/L (136-145) Potassium Level 4.0 mmol/L (3.5-5.1) Chloride Level 106 mmol/L (98-107) Carbon Dioxide Level 28 mmol/L (21-32) Anion Gap 8 (6-14) Blood Urea Nitrogen 10 mg/dL (7-20) Creatinine 1.3 mg/dL (0.6-1.0) Estimated GFR (Cockcroft-Gault) 41.0 Glucose Level 104 mg/dL (70-99) Calcium Level 8.9 mg/dL (8.5-10.1) DANYA EPSTEIN MD Dec 27, 2017 08:20
[2017-12-27] MEDS ORDERED: LIDOCAINE 2% PF Vial for OR 5 ML VIAL. ONE (08:40)
[2017-12-27] MEDS: BIMATOPROST OD SCH ×2 (09:00→20:39)
[2017-12-27] MEDS: COLLAGENASE 250 UNIT/GM TOPICAL OINTMENT 30GM TUBE. TP SCH (09:00)
[2017-12-27] MEDS: DORZOLAMIDE 2% OPHTH SOLUTION 10ML BOTTLE. OD SCH ×2 (09:00→20:39)
[2017-12-27] MEDS ORDERED: ONDANSETRON PF 4 MG/2 ML VIAL. ONE (09:37)
[2017-12-27] MEDS ORDERED: DEXAMETHASONE SOD PHOS 20 MG/5 ML VIAL. ONE (09:37)
[2017-12-27] MEDS ORDERED: SEVOFLURANE 61 TO 120 MINUTES. IH ONE (09:37)
[2017-12-27] MEDS: ENOXAPARIN 40 MG/0.4 ML SYRINGE. SQ SCH (09:45)
[2017-12-27] MEDS ORDERED: 0.9 % SODIUM CHLORIDE 10 ML DISP.SYRIN. IV PRN (09:45)
--- NOTE | 2017-12-27 09:49 | PDOC4 ---
OPERATIVE NOTE Date: Date: Dec 27, 2017 Pre-Op Diagnosis: Abdominal wall necrosis, infected mesh Post-Op Diagnosis: same Procedure Performed: Abdominal wall debridement of skin subcutaneous tissue and removal of mesh Surgeon: Archie Epstein Anesthesia Type: GETA Blood Loss: minimal Specimans Obtained: abdominal wall necrosis, old mesh Findings: Abdominal wall necrosis of left abdominal wall, no hernia noted Complications: none Operative Note: After obtaining informed consent, patient was taken to OR, induced under GETA and prepped in the usual fashion. Open wound noted at area of umbilicus. Necrosis skin and subcutaneous tissue extending to the left. This necrotic tissue was sharply debrided laterally to good, solid, viable bleeding tissue. This was taken down to abdominal wall cavity containing old mesh. The necrotic tissue was excised and sent to pathology for evaluation. Mesh was noted to the abdominal wall cavity. This was excised and sent to pathology. Underlying abdominal wall appeared to be intact without evidence of hernia and solid, good granulation tissue. All obvious necrotic tissue had been excised. Pulsevac was then used to wash the cavity with 2 liters NS. Hemostasis was obtained with cautery. Wound was then packed with iodoform gauze. Dressing placed over this. Patient tolerated procedure well and sent to PACU in stable condition. All counts correct. No immediate complications. Wound class is 4, dirty. DANYA EPSTEIN MD Dec 27, 2017 09:49
--- NOTE | 2017-12-27 10:02 | PDOC ---
PROGRESS NOTES Subjective Subjective to OR today Objective Objective Vital Signs Date Time Temp Pulse Resp B/P (MAP) Pulse Ox O2 Delivery O2 Flow Rate FiO2 12/27/17 09:41 97.0 83 20 158/68 100 Simple Mask 10 97.0 Intake and Output 12/27/17 07:00 Intake Total 2270 ml Balance 2270 ml Intake Oral 120 ml IV Total 2150 ml # Voids 11 # Bowel Movements 4 Physical Exam Physical Exam not in room, went to OR Abdomen: Other (wound with drainage, dressing in place) General: Oriented X3 COMMENT dressings present abd wall Assessment Assessment FINAL IMPRESSION: lung nodule 2 cm rt middle lobe, new finding 1. Abdominal wall infection with skin necrosis, drainage and infection. 2. Recent wound dehiscence in the upper part of the incision. 3. Recent ventral hernia repair 2 months ago. 4. History of cerebrovascular accident with cognitive deficit. 5. Chronic obstructive pulmonary disease. 6. Hypertension. 7. Hypernatremia. 8. Hypokalemia. 9. Borderline DM PLAN:surgery today. IV antibiotics for now. proteus and pseudomonas in wound c/s CT chest positive for lung nodule less than 2 cm , will do out pt work up spoke with pts CT abd and pelvis today, no new changes,infection abd wall. dvt prevention labs improving c diff -neg. GI consult appreciated Comment Review of Relevant I have reviewed the following items ranulfo (where applicable) has been applied. Labs Laboratory Tests Test 12/26/17 11:54 12/26/17 16:57 12/26/17 21:02 12/27/17 07:15 Glucose (Fingerstick) 109 mg/dL (70-99) 137 mg/dL (70-99) 160 mg/dL (70-99) Sodium Level 142 mmol/L (136-145) Potassium Level 4.0 mmol/L (3.5-5.1) Chloride Level 106 mmol/L (98-107) Carbon Dioxide Level 28 mmol/L (21-32) Anion Gap 8 (6-14) Blood Urea Nitrogen 10 mg/dL (7-20) Creatinine 1.3 mg/dL (0.6-1.0) Estimated GFR (Cockcroft-Gault) 41.0 Glucose Level 104 mg/dL (70-99) Calcium Level 8.9 mg/dL (8.5-10.1) Microbiology 12/20/17 Blood Culture - Final, Complete NO GROWTH AFTER 5 DAYS 12/20/17 Anaerobic/Aerobic Culture - Final, Complete 12/20/17 Anaerobic Culture Result 1 (JLUIS) - Final, Complete 12/20/17 Aerobic Culture - Final, Complete 12/20/17 Aerobic Culture Result 1 (JLUIS) - Final, Complete 12/20/17 Aerobic Culture Result 2 (JLUIS) - Final, Complete 12/20/17 Antimicrobic Susceptibility - Final, Complete 12/20/17 Gram Stain - Final, Complete 12/20/17 Gram Stain Result 1 (JLUIS) - Final, Complete 12/20/17 Gram Stain Result 2 (JLUIS) - Final, Complete Medications Current Medications Bupivacaine HCl/ Epinephrine Bitart (Sensorcain-Mpf Epi 0.5%-1:[id number]) 30 ml STK -MED ONCE .ROUTE ; Start 12/27/17 at 05:59; Stop 12/27/17 at 07:00; Status DC Dexamethasone Sodium Phosphate (Decadron) 20 mg STK-MED ONCE .ROUTE ; Start at 09:37; Stop 12/27/17 at 09:38; Status DC Dorzolamide HCl (Trusopt) 1 drop BID OD ; Start 12/26/17 at 21:00 Enoxaparin Sodium (Lovenox 40mg Syringe) 40 mg DAILY SQ ; Start 12/27/17 at 09: 45 Fentanyl Citrate (Fentanyl 2ml Vial) 25 mcg PRN Q5MIN PRN IV MILD PAIN; Start 12/27/17 at 07:00; Stop 12/28/17 at 06:59 Fentanyl Citrate (Fentanyl 2ml Vial) 50 mcg PRN Q5MIN PRN IV MODERATE TO SEVERE PAIN; Start 12/27/17 at 07:00; Stop 12/28/17 at 06:59 Fentanyl Citrate (Fentanyl 2ml Vial) 100 mcg STK-MED ONCE .ROUTE ; Start at 09:37; Stop 12/27/17 at 09:38; Status DC Hydromorphone HCl (Dilaudid) 0.5 mg PRN Q10MIN PRN IV SEV PAIN, Second choice; Start 12/27/17 at 07:00; Stop 12/28/17 at 06:59 Lidocaine HCl (Lidocaine Pf 2% Vial) 5 ml STK-MED ONCE .ROUTE ; Start 12/27/17 at 08:40; Stop 12/27/17 at 08:41; Status DC Lidocaine HCl (Xylocaine-Mpf 1% 2ml Vial) 2 ml PRN 1X PRN ID PRIOR TO IV START ; Start 12/27/17 at 07:00; Stop 12/28/17 at 06:59 Morphine Sulfate (Morphine Sulfate) 1 mg PRN Q10MIN PRN IV SEVERE PAIN; Start 12/27/17 at 07:00; Stop 12/28/17 at 06:59 Ondansetron HCl (Zofran) 4 mg PRN Q6HRS PRN IV NAUSEA/VOMITING; Start at 07:00; Stop 12/28/17 at 06:59 Ondansetron HCl (Zofran) 4 mg STK-MED ONCE .ROUTE ; Start 12/27/17 at 09:37; Stop 12/27/17 at 09:38; Status DC Prochlorperazine Edisylate (Compazine) 5 mg PACU PRN PRN IV NAUSEA, MRX1; Start 12/27/17 at 07:00; Stop 12/28/17 at 06:59 Propofol 20 ml @ As Directed STK-MED ONCE IV ; Start 12/27/17 at 09:37; Stop 12/27/17 at 09:38; Status DC Ringer's Solution 1,000 ml @ 30 mls/hr Q24H IV Last administered on at 08:17; Start 12/27/17 at 07:00; Stop 12/27/17 at 18:59 Sevoflurane (Ultane) 60 ml STK-MED ONCE IH ; Start 12/27/17 at 09:37; Stop at 09:38; Status DC Sodium Chloride (Normal Saline Flush) 3 ml QSHIFT PRN IV AFTER MEDS AND BLOOD DRAWS; Start 12/27/17 at 09:45 Vitals/I & O Vital Sign - Last 24 Hours 12/26/17 12/26/17 12/26/17 12/26/17 11:00 11:56 15:13 15:26 Temp 97.7 97.9 97.7 97.9 Pulse 92 89 Resp 16 16 16 B/P (MAP) 156/63 (94) 149/52 (84) Pulse Ox 98 96 O2 Delivery Room Air Room Air Room Air Room Air 12/26/17 12/26/17 12/26/17 12/26/17 15:49 16:20 19:00 19:27 Temp 97.6 97.6 Pulse 88 Resp 16 18 B/P (MAP) 143/62 (89) Pulse Ox 97 95 O2 Delivery Room Air Room Air Room Air 12/26/17 12/26/17 12/27/17 12/27/17 19:40 23:00 01:43 02:43 Temp 97.9 97.9 Pulse 95 Resp 18 B/P (MAP) 120/60 (80) Pulse Ox 95 O2 Delivery Room Air Room Air Room Air Room Air 12/27/17 12/27/17 12/27/17 12/27/17 03:00 07:16 08:03 09:41 Temp 97.9 97.9 97.0 97.9 97.9 97.0 Pulse 93 98 83 Resp 18 20 20 B/P (MAP) 181/79 (113) 150/65 158/68 Pulse Ox 94 96 100 O2 Delivery Room Air Room Air Room Air Simple Mask O2 Flow Rate 10 Intake and Output 12/26/17 12/26/17 12/27/17 15:00 23:00 07:00 Intake Total 1050 ml 120 ml 1100 ml Balance 1050 ml 120 ml 1100 ml CHRISTOPH LE MD Dec 27, 2017 10:02
--- NOTE | 2017-12-27 10:53 | PDOC ---
Objective: Objective: 4 stools charted. Has not been given Imodium. Vital Signs: Vital Signs Date Time Temp Pulse Resp B/P (MAP) Pulse Ox O2 Delivery O2 Flow Rate FiO2 12/27/17 10:26 96.9 86 20 167/73 94 Room Air 96.9 12/27/17 10:11 10 Labs: Laboratory Tests Test 12/26/17 11:54 12/26/17 16:57 12/26/17 21:02 Glucose (Fingerstick) 109 mg/dL (70-99) 137 mg/dL (70-99) 160 mg/dL (70-99) PE: no exam A/P: S/p abd wall debridement and removal of mesh 12/27 Perianal irritation/pain, diarrhea - better -- Out of room, reviewed op note. SHAHNAZ SABA Dec 27, 2017 10:53
[2017-12-27] MEDS: ASCORBIC ACID 500 MG TABLET PO SCH ×2 (12:19→20:39)
[2017-12-27] MEDS: CALCIUM CARBONATE 500 MG TABLET PO SCH (12:19)
[2017-12-27] MEDS: LACTOBACILLUS RHAMNOSUS GG 1 CAPSULE. PO SCH ×2 (12:20→20:39)
[2017-12-27] MEDS: MULTIVITAMIN with MINERAL TABLET. PO SCH (12:20)
[2017-12-27] MEDS: FLUCONAZOLE 100 MG TABLET. PO SCH (12:20)
[2017-12-27] MEDS: LINEZOLID 600 MG TABLET PO SCH ×2 (12:20→20:39)
[2017-12-27] MEDS: BRIMONIDINE 0.2% OPHTH SOLUTION 5ML BOTTLE. OD SCH ×2 (12:21→20:39)
[2017-12-27] MEDS: TIMOLOL 0.5% OPHTH SOLUTION 5ML BOTTLE. OD SCH ×2 (12:22→20:39)
--- NOTE | 2017-12-27 12:39 | PDOC ---
PULMONARY PROGRESS NOTES Subjective sob is better, Vitals Vital Signs Date Time Temp Pulse Resp B/P (MAP) Pulse Ox O2 Delivery O2 Flow Rate FiO2 12/27/17 11:45 94 18 149/57 (87) Room Air 12/27/17 11:30 97 12/27/17 10:50 96.6 96.6 12/27/17 10:11 10 ROS: No Nausea, No Chest Pain General: Alert, Oriented X4, No acute distress HEENT: Other (nc at perrl) Lungs: Clear Cardiovascular: S1, S2 Abdomen: Soft, Other (wound dressing) Neuro Exam: Alert Extremities: No Edema Skin: Warm Labs Laboratory Tests Test 12/25/17 16:23 12/25/17 21:03 12/26/17 05:24 12/26/17 07:57 Glucose (Fingerstick) 95 mg/dL (70-99) 126 mg/dL (70-99) 92 mg/dL (70-99) White Blood Count 5.1 x10^3/uL (4.0-11.0) Red Blood Count 3.91 x10^6/uL (3.50-5.40) Hemoglobin 10.7 g/dL (12.0-15.5) Hematocrit 32.6 % (36.0-47.0) Mean Corpuscular Volume 83 fL (79-100) Mean Corpuscular Hemoglobin 27 pg (25-35) Mean Corpuscular Hemoglobin Concent 33 g/dL (31-37) Red Cell Distribution Width 16.2 % (11.5-14.5) Platelet Count 306 x10^3/uL (140-400) Neutrophils (%) (Auto) 54 % (31-73) Lymphocytes (%) (Auto) 29 % (24-48) Monocytes (%) (Auto) 13 % (0-9) Eosinophils (%) (Auto) 4 % (0-3) Basophils (%) (Auto) 1 % (0-3) Neutrophils # (Auto) 2.7 x10^3uL (1.8-7.7) Lymphocytes # (Auto) 1.4 x10^3/uL (1.0-4.8) Monocytes # (Auto) 0.6 x10^3/uL (0.0-1.1) Eosinophils # (Auto) 0.2 x10^3/uL (0.0-0.7) Basophils # (Auto) 0.1 x10^3/uL (0.0-0.2) Sodium Level 142 mmol/L (136-145) Potassium Level 4.1 mmol/L (3.5-5.1) Chloride Level 108 mmol/L (98-107) Carbon Dioxide Level 26 mmol/L (21-32) Anion Gap 8 (6-14) Blood Urea Nitrogen 13 mg/dL (7-20) Creatinine 1.4 mg/dL (0.6-1.0) Estimated GFR (Cockcroft-Gault) 37.6 Glucose Level 100 mg/dL (70-99) Calcium Level 8.3 mg/dL (8.5-10.1) Test 12/26/17 11:54 12/26/17 16:57 12/26/17 21:02 12/27/17 07:15 Glucose (Fingerstick) 109 mg/dL (70-99) 137 mg/dL (70-99) 160 mg/dL (70-99) Sodium Level 142 mmol/L (136-145) Potassium Level 4.0 mmol/L (3.5-5.1) Chloride Level 106 mmol/L (98-107) Carbon Dioxide Level 28 mmol/L (21-32) Anion Gap 8 (6-14) Blood Urea Nitrogen 10 mg/dL (7-20) Creatinine 1.3 mg/dL (0.6-1.0) Estimated GFR (Cockcroft-Gault) 41.0 Glucose Level 104 mg/dL (70-99) Calcium Level 8.9 mg/dL (8.5-10.1) Test 12/27/17 11:07 Glucose (Fingerstick) 104 mg/dL (70-99) Laboratory Tests Test 12/26/17 16:57 12/26/17 21:02 12/27/17 07:15 12/27/17 11:07 Glucose (Fingerstick) 137 mg/dL (70-99) 160 mg/dL (70-99) 104 mg/dL (70-99) Sodium Level 142 mmol/L (136-145) Potassium Level 4.0 mmol/L (3.5-5.1) Chloride Level 106 mmol/L (98-107) Carbon Dioxide Level 28 mmol/L (21-32) Anion Gap 8 (6-14) Blood Urea Nitrogen 10 mg/dL (7-20) Creatinine 1.3 mg/dL (0.6-1.0) Estimated GFR (Cockcroft-Gault) 41.0 Glucose Level 104 mg/dL (70-99) Calcium Level 8.9 mg/dL (8.5-10.1) Medications Active Scripts Medications Dose Route/Sig Max Daily Dose Days Date Category Proctocream-Hc (Hydrocortisone) 30 Gm Cream..g. 1 Laly TP BID 12/21/17 Reported Gabapentin 300 Mg Capsule 300 Mg PO TID 12/21/17 Reported Anusol-Hc (Hydrocortisone Acetate) 25 Mg Supp.rect 1 Supp RC BID 12/21/17 Reported [place] 5-325 Tablet (Acetaminophen/Hydrocodone Bitart) 1 Each Tablet 1 Tab PO PRN Q6HRS PRN 12/21/17 Reported Clonidine Hcl 0.1 Mg Tablet 1 Tab PO PRN TID PRN 12/21/17 Reported Percocet 5-325 Mg Tablet (Oxycodone/Acetaminophen) 1 Each Tablet 1 Tab PO PRN Q6HRS PRN 12/16/17 Rx Zyvox (Linezolid) 600 Mg Tablet 600 Mg PO BID 14 11/15/17 Rx Azopt (Brinzolamide) 10 Ml Drops.susp 1 Drop OD BID 12/07/16 Reported Amitriptyline Hcl 10 Mg Tablet 10 Mg PO QHS 12/07/16 Reported Calcium (Calcium Carbonate) 600 Mg Tablet 600 Mg PO DAILY 12/02/16 Reported Multivitamins (Multivitamin) 1 Each Capsule 1 Each PO DAILY 12/02/16 Reported Meclizine Hcl 25 Mg Tablet 1 Tab PO PRN TID PRN 12/02/16 Reported Ventolin Hfa Inhaler (Albuterol Sulfate) 18 Gm Hfa.aer.ad 18 Gm INH PRN PRN 08/02/16 Reported Lumigan (Bimatoprost) 2.5 Ml Drops 2.5 Ml OD BID 08/02/16 Reported Combigan Eye Drops (Brimonidine Tartrate/Timolol) 5 Ml Drops 5 Ml OD BID 08/02/16 Reported Impression . IMPRESSION: 1. Abnormal CT chest revealing right upper lobe density suspicious for malignancy, not present in the film of 2007. 2. 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 3. Chronic obstructive pulmonary disease, unknown FEV1. 4. Tobacco dependent. 5. Progressive abdominal wall infection with recent hernia repair, status post mesh in September of 2017. 6. Diabetes. 7. History of subdural hematoma with mild cognitive dysfunction. 8. Tobacco dependent. Plan . 1. recommend working up the right upper lobe density as an outpatient with pet scan, pfts and possible fine needle aspiration or surgical intervention. fu with dr ji 2. Continue current medical management. 3. s/p wound debridement 4. antibiotics, 5. The patient instructed on the importance of discontinuing tobacco use. 6. cont BD, ICS discussed w pt ARACELI MICHAEL MD Dec 27, 2017 12:39
[2017-12-27] MEDS: AMITRIPTYLINE HCL 10 MG TABLET. PO SCH (20:40)
[2017-12-28] MEDS: PIPERACILLIN/TAZOBACTAM 3.375 GM in IV NORMAL SALINE 50ML 50 ML IV SCH ×4 (00:39→17:26)
[2017-12-28] MEDS: POTASSIUM CL 30MEQ D5-0.45NACL 1,000 ML IV SCH ×2 (00:39→16:52)
[2017-12-28] MEDS: HYDROcodone/APAP 5/325MG 1 TAB TABLET PO PRN ×3 (00:43→22:29)
[2017-12-28 03:00] VITALS: BP 187/85
[2017-12-28] MEDS: LABETALOL 20 MG/4 ML DISP.SYRIN. IVP PRN ×2 (04:22→17:26)
[2017-12-28 07:00] VITALS: BP 174/77
[2017-12-28 07:17] LABS: BASO % 0 % (0-3); EOS % 0 % (0-3); HEMATOCRIT 34.2 % (36.0-47.0); HEMOGLOBIN 11.3 g/dL (12.0-15.5); LYMPH # 1.7 x10^3/uL (1.0-4.8); LYMPH % 15 % (24-48); MEAN CORPUSCULAR HEMOGLOBIN 28 pg (25-35); MEAN CORPUSCULAR HGB CONC 33 g/dL (31-37); MEAN CORPUSCULAR VOLUME 84 fL (79-100); MONO % 9 % (0-9); NEUT # 8.3 x10^3uL (1.8-7.7); NEUT % 75 % (31-73); PLATELET COUNT 366 x10^3/uL (140-400); RED BLOOD COUNT 4.09 x10^6/uL (3.50-5.40); RED CELL DISTRIBUTION WIDTH 16.2 % (11.5-14.5)
[2017-12-28] MEDS: BUDESONIDE 0.5 MG/2 ML NEBU. NEB SCH ×2 (07:21→20:25)
[2017-12-28] MEDS: IPRATRPIUM/ALBUTEROL 0.5/2.5MG 3 ML NEBU. NEB SCH ×4 (07:21→20:25)
[2017-12-28 07:43] LABS: CALCIUM 9.1 mg/dL (8.5-10.1); CREATININE 1.5 mg/dL (0.6-1.0); GFR 34.7; POTASSIUM 4.5 mmol/L (3.5-5.1)
--- NOTE | 2017-12-28 07:57 | PDOC ---
SURGICAL PROGRESS NOTE Subjective Pt sitting up, eating breakfast, reports doing well Vital Signs Vital Signs Date Time Temp Pulse Resp B/P (MAP) Pulse Ox O2 Delivery O2 Flow Rate FiO2 12/28/17 07:21 96 Room Air 12/28/17 04:22 100 187/85 12/28/17 03:00 97.9 20 97.9 12/28/17 00:43 10.0 I&O Intake and Output 12/28/17 07:00 Intake Total 1150 ml Output Total 51 ml Balance 1099 ml Intake Oral 300 ml IV Total 850 ml Urine/Stool Mix 1 ml Estimated Blood Loss 50 ml # Voids 4 # Bowel Movements 2 General: Alert, Oriented X3, Cooperative, No acute distress Abdomen: Soft, Other (dressing intact) Labs Laboratory Tests Test 12/26/17 07:57 12/26/17 11:54 12/26/17 16:57 12/26/17 21:02 Glucose (Fingerstick) 92 mg/dL (70-99) 109 mg/dL (70-99) 137 mg/dL (70-99) 160 mg/dL (70-99) Test 12/27/17 07:15 12/27/17 11:07 12/27/17 16:45 12/28/17 05:55 Sodium Level 142 mmol/L (136-145) 139 mmol/L (136-145) Potassium Level 4.0 mmol/L (3.5-5.1) 4.5 mmol/L (3.5-5.1) Chloride Level 106 mmol/L (98-107) 102 mmol/L (98-107) Carbon Dioxide Level 28 mmol/L (21-32) 27 mmol/L (21-32) Anion Gap 8 (6-14) 10 (6-14) Blood Urea Nitrogen 10 mg/dL (7-20) 20 mg/dL (7-20) Creatinine 1.3 mg/dL (0.6-1.0) 1.5 mg/dL (0.6-1.0) Estimated GFR (Cockcroft-Gault) 41.0 34.7 Glucose Level 104 mg/dL (70-99) 118 mg/dL (70-99) Calcium Level 8.9 mg/dL (8.5-10.1) 9.1 mg/dL (8.5-10.1) Glucose (Fingerstick) 104 mg/dL (70-99) 143 mg/dL (70-99) White Blood Count 11.0 x10^3/uL (4.0-11.0) Red Blood Count 4.09 x10^6/uL (3.50-5.40) Hemoglobin 11.3 g/dL (12.0-15.5) Hematocrit 34.2 % (36.0-47.0) Mean Corpuscular Volume 84 fL (79-100) Mean Corpuscular Hemoglobin 28 pg (25-35) Mean Corpuscular Hemoglobin Concent 33 g/dL (31-37) Red Cell Distribution Width 16.2 % (11.5-14.5) Platelet Count 366 x10^3/uL (140-400) Neutrophils (%) (Auto) 75 % (31-73) Lymphocytes (%) (Auto) 15 % (24-48) Monocytes (%) (Auto) 9 % (0-9) Eosinophils (%) (Auto) 0 % (0-3) Basophils (%) (Auto) 0 % (0-3) Neutrophils # (Auto) 8.3 x10^3uL (1.8-7.7) Lymphocytes # (Auto) 1.7 x10^3/uL (1.0-4.8) Monocytes # (Auto) 1.0 x10^3/uL (0.0-1.1) Eosinophils # (Auto) 0.0 x10^3/uL (0.0-0.7) Basophils # (Auto) 0.0 x10^3/uL (0.0-0.2) Test 12/28/17 07:41 Glucose (Fingerstick) 133 mg/dL (70-99) Laboratory Tests Test 12/27/17 11:07 12/27/17 16:45 12/28/17 05:55 12/28/17 07:41 Glucose (Fingerstick) 104 mg/dL (70-99) 143 mg/dL (70-99) 133 mg/dL (70-99) White Blood Count 11.0 x10^3/uL (4.0-11.0) Red Blood Count 4.09 x10^6/uL (3.50-5.40) Hemoglobin 11.3 g/dL (12.0-15.5) Hematocrit 34.2 % (36.0-47.0) Mean Corpuscular Volume 84 fL (79-100) Mean Corpuscular Hemoglobin 28 pg (25-35) Mean Corpuscular Hemoglobin Concent 33 g/dL (31-37) Red Cell Distribution Width 16.2 % (11.5-14.5) Platelet Count 366 x10^3/uL (140-400) Neutrophils (%) (Auto) 75 % (31-73) Lymphocytes (%) (Auto) 15 % (24-48) Monocytes (%) (Auto) 9 % (0-9) Eosinophils (%) (Auto) 0 % (0-3) Basophils (%) (Auto) 0 % (0-3) Neutrophils # (Auto) 8.3 x10^3uL (1.8-7.7) Lymphocytes # (Auto) 1.7 x10^3/uL (1.0-4.8) Monocytes # (Auto) 1.0 x10^3/uL (0.0-1.1) Eosinophils # (Auto) 0.0 x10^3/uL (0.0-0.7) Basophils # (Auto) 0.0 x10^3/uL (0.0-0.2) Sodium Level 139 mmol/L (136-145) Potassium Level 4.5 mmol/L (3.5-5.1) Chloride Level 102 mmol/L (98-107) Carbon Dioxide Level 27 mmol/L (21-32) Anion Gap 10 (6-14) Blood Urea Nitrogen 20 mg/dL (7-20) Creatinine 1.5 mg/dL (0.6-1.0) Estimated GFR (Cockcroft-Gault) 34.7 Glucose Level 118 mg/dL (70-99) Calcium Level 9.1 mg/dL (8.5-10.1) Problem List s/p abd wall debridement appears to be doing well will ask wound care to evaluate for wound vac DANYA EPSTEIN MD Dec 28, 2017 07:57
[2017-12-28] MEDS: INSULIN LISPRO 300 UNITS/3 ML INSULN.PEN. SQ SCH ×3 (08:00→16:31)
[2017-12-28] MEDS: CALCIUM CARBONATE 500 MG TABLET PO SCH (08:27)
[2017-12-28] MEDS: MULTIVITAMIN with MINERAL TABLET. PO SCH (08:27)
[2017-12-28] MEDS: LOPERAMIDE 2 MG CAPSULE PO PRN (08:27)
[2017-12-28] MEDS: LINEZOLID 600 MG TABLET PO SCH ×2 (08:28→20:45)
[2017-12-28] MEDS: FLUCONAZOLE 100 MG TABLET. PO SCH (08:28)
[2017-12-28] MEDS: ASCORBIC ACID 500 MG TABLET PO SCH ×2 (08:28→20:45)
[2017-12-28] MEDS: LACTOBACILLUS RHAMNOSUS GG 1 CAPSULE. PO SCH ×2 (08:28→20:48)
[2017-12-28] MEDS: ENOXAPARIN 40 MG/0.4 ML SYRINGE. SQ SCH (08:28)
[2017-12-28] MEDS: DORZOLAMIDE 2% OPHTH SOLUTION 10ML BOTTLE. OD SCH ×2 (08:29→21:00)
[2017-12-28] MEDS: BRIMONIDINE 0.2% OPHTH SOLUTION 5ML BOTTLE. OD SCH ×2 (08:30→20:44)
[2017-12-28] MEDS: BIMATOPROST OD SCH ×2 (08:30→21:00)
[2017-12-28] MEDS: TIMOLOL 0.5% OPHTH SOLUTION 5ML BOTTLE. OD SCH ×2 (08:30→20:44)
[2017-12-28] MEDS: COLLAGENASE 250 UNIT/GM TOPICAL OINTMENT 30GM TUBE. TP SCH (08:55)
--- NOTE | 2017-12-28 09:31 | PDOC ---
PULMONARY PROGRESS NOTES Subjective sob is better, Vitals Vital Signs Date Time Temp Pulse Resp B/P (MAP) Pulse Ox O2 Delivery O2 Flow Rate FiO2 12/28/17 08:54 96 Room Air 12/28/17 07:00 97.7 88 20 174/77 (109) 97.7 12/28/17 00:43 10.0 ROS: No Nausea, No Chest Pain General: Alert, Oriented X4, No acute distress HEENT: Other (nc at perrl) Lungs: Clear Cardiovascular: S1, S2 Abdomen: Soft, Other (wound dressing) Neuro Exam: Alert Extremities: No Edema Skin: Warm Labs Laboratory Tests Test 12/26/17 11:54 12/26/17 16:57 12/26/17 21:02 12/27/17 07:15 Glucose (Fingerstick) 109 mg/dL (70-99) 137 mg/dL (70-99) 160 mg/dL (70-99) Sodium Level 142 mmol/L (136-145) Potassium Level 4.0 mmol/L (3.5-5.1) Chloride Level 106 mmol/L (98-107) Carbon Dioxide Level 28 mmol/L (21-32) Anion Gap 8 (6-14) Blood Urea Nitrogen 10 mg/dL (7-20) Creatinine 1.3 mg/dL (0.6-1.0) Estimated GFR (Cockcroft-Gault) 41.0 Glucose Level 104 mg/dL (70-99) Calcium Level 8.9 mg/dL (8.5-10.1) Test 12/27/17 11:07 12/27/17 16:45 12/28/17 05:55 12/28/17 07:41 Glucose (Fingerstick) 104 mg/dL (70-99) 143 mg/dL (70-99) 133 mg/dL (70-99) White Blood Count 11.0 x10^3/uL (4.0-11.0) Red Blood Count 4.09 x10^6/uL (3.50-5.40) Hemoglobin 11.3 g/dL (12.0-15.5) Hematocrit 34.2 % (36.0-47.0) Mean Corpuscular Volume 84 fL (79-100) Mean Corpuscular Hemoglobin 28 pg (25-35) Mean Corpuscular Hemoglobin Concent 33 g/dL (31-37) Red Cell Distribution Width 16.2 % (11.5-14.5) Platelet Count 366 x10^3/uL (140-400) Neutrophils (%) (Auto) 75 % (31-73) Lymphocytes (%) (Auto) 15 % (24-48) Monocytes (%) (Auto) 9 % (0-9) Eosinophils (%) (Auto) 0 % (0-3) Basophils (%) (Auto) 0 % (0-3) Neutrophils # (Auto) 8.3 x10^3uL (1.8-7.7) Lymphocytes # (Auto) 1.7 x10^3/uL (1.0-4.8) Monocytes # (Auto) 1.0 x10^3/uL (0.0-1.1) Eosinophils # (Auto) 0.0 x10^3/uL (0.0-0.7) Basophils # (Auto) 0.0 x10^3/uL (0.0-0.2) Sodium Level 139 mmol/L (136-145) Potassium Level 4.5 mmol/L (3.5-5.1) Chloride Level 102 mmol/L (98-107) Carbon Dioxide Level 27 mmol/L (21-32) Anion Gap 10 (6-14) Blood Urea Nitrogen 20 mg/dL (7-20) Creatinine 1.5 mg/dL (0.6-1.0) Estimated GFR (Cockcroft-Gault) 34.7 Glucose Level 118 mg/dL (70-99) Calcium Level 9.1 mg/dL (8.5-10.1) Laboratory Tests Test 12/27/17 11:07 12/27/17 16:45 12/28/17 05:55 12/28/17 07:41 Glucose (Fingerstick) 104 mg/dL (70-99) 143 mg/dL (70-99) 133 mg/dL (70-99) White Blood Count 11.0 x10^3/uL (4.0-11.0) Red Blood Count 4.09 x10^6/uL (3.50-5.40) Hemoglobin 11.3 g/dL (12.0-15.5) Hematocrit 34.2 % (36.0-47.0) Mean Corpuscular Volume 84 fL (79-100) Mean Corpuscular Hemoglobin 28 pg (25-35) Mean Corpuscular Hemoglobin Concent 33 g/dL (31-37) Red Cell Distribution Width 16.2 % (11.5-14.5) Platelet Count 366 x10^3/uL (140-400) Neutrophils (%) (Auto) 75 % (31-73) Lymphocytes (%) (Auto) 15 % (24-48) Monocytes (%) (Auto) 9 % (0-9) Eosinophils (%) (Auto) 0 % (0-3) Basophils (%) (Auto) 0 % (0-3) Neutrophils # (Auto) 8.3 x10^3uL (1.8-7.7) Lymphocytes # (Auto) 1.7 x10^3/uL (1.0-4.8) Monocytes # (Auto) 1.0 x10^3/uL (0.0-1.1) Eosinophils # (Auto) 0.0 x10^3/uL (0.0-0.7) Basophils # (Auto) 0.0 x10^3/uL (0.0-0.2) Sodium Level 139 mmol/L (136-145) Potassium Level 4.5 mmol/L (3.5-5.1) Chloride Level 102 mmol/L (98-107) Carbon Dioxide Level 27 mmol/L (21-32) Anion Gap 10 (6-14) Blood Urea Nitrogen 20 mg/dL (7-20) Creatinine 1.5 mg/dL (0.6-1.0) Estimated GFR (Cockcroft-Gault) 34.7 Glucose Level 118 mg/dL (70-99) Calcium Level 9.1 mg/dL (8.5-10.1) Medications Active Scripts Medications Dose Route/Sig Max Daily Dose Days Date Category Proctocream-Hc (Hydrocortisone) 30 Gm Cream..g. 1 Laly TP BID 12/21/17 Reported Gabapentin 300 Mg Capsule 300 Mg PO TID 12/21/17 Reported Anusol-Hc (Hydrocortisone Acetate) 25 Mg Supp.rect 1 Supp RC BID 12/21/17 Reported [place] 5-325 Tablet (Acetaminophen/Hydrocodone Bitart) 1 Each Tablet 1 Tab PO PRN Q6HRS PRN 12/21/17 Reported Clonidine Hcl 0.1 Mg Tablet 1 Tab PO PRN TID PRN 12/21/17 Reported Percocet 5-325 Mg Tablet (Oxycodone/Acetaminophen) 1 Each Tablet 1 Tab PO PRN Q6HRS PRN 12/16/17 Rx Zyvox (Linezolid) 600 Mg Tablet 600 Mg PO BID 14 11/15/17 Rx Azopt (Brinzolamide) 10 Ml Drops.susp 1 Drop OD BID 12/07/16 Reported Amitriptyline Hcl 10 Mg Tablet 10 Mg PO QHS 12/07/16 Reported Calcium (Calcium Carbonate) 600 Mg Tablet 600 Mg PO DAILY 12/02/16 Reported Multivitamins (Multivitamin) 1 Each Capsule 1 Each PO DAILY 12/02/16 Reported Meclizine Hcl 25 Mg Tablet 1 Tab PO PRN TID PRN 12/02/16 Reported Ventolin Hfa Inhaler (Albuterol Sulfate) 18 Gm Hfa.aer.ad 18 Gm INH PRN PRN 08/02/16 Reported Lumigan (Bimatoprost) 2.5 Ml Drops 2.5 Ml OD BID 08/02/16 Reported Combigan Eye Drops (Brimonidine Tartrate/Timolol) 5 Ml Drops 5 Ml OD BID 08/02/16 Reported Impression . IMPRESSION: 1. Abnormal CT chest revealing right upper lobe density suspicious for malignancy, not present in the film of 2007. 2. 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 3. Chronic obstructive pulmonary disease, unknown FEV1. 4. Tobacco dependent. 5. Progressive abdominal wall infection with recent hernia repair, status post mesh in September of 2017. 6. Diabetes. 7. History of subdural hematoma with mild cognitive dysfunction. 8. Tobacco dependent. Plan . 1. recommend working up the right upper lobe density as an outpatient with pet scan, pfts and possible fine needle aspiration or surgical intervention. fu with dr ji. Appointment given for January 10, 1.45 pm. d/ w RN and Patient 2. Continue current medical management. 3. s/p wound debridement 4. antibiotics, 5. The patient instructed on the importance of discontinuing tobacco use. 6. cont BD, ICS discussed w pt ARACELI MICHAEL MD Dec 28, 2017 09:31
--- NOTE | 2017-12-28 09:36 | PDOC ---
Infectious Disease Note Subjective Subjective Some abd pain. No nausea + BM Appetite fair Denies N/V/F/C/S Vital Sign Vital Signs Vital Signs Date Time Temp Pulse Resp B/P (MAP) Pulse Ox O2 Delivery O2 Flow Rate FiO2 12/28/17 08:54 96 Room Air 12/28/17 07:00 97.7 88 20 174/77 (109) 97.7 12/28/17 00:43 10.0 Physical Exam PHYSICAL EXAM GENERAL: Lying in the side of the bed, flat affect, NAD HEENT: No thrush. LUNGS: Clear bilaterally. HEART: S1, S2, no murmurs. ABDOMEN: Soft. Wound vac in place,+ BS EXTREMITIES: No edema, no cyanosis. NEUROLOGIC: Alert, oriented x 3 SKIN: warm without rash PIV -clean Labs Lab Laboratory Tests Test 12/27/17 11:07 12/27/17 16:45 12/28/17 05:55 12/28/17 07:41 Glucose (Fingerstick) 104 mg/dL (70-99) 143 mg/dL (70-99) 133 mg/dL (70-99) White Blood Count 11.0 x10^3/uL (4.0-11.0) Red Blood Count 4.09 x10^6/uL (3.50-5.40) Hemoglobin 11.3 g/dL (12.0-15.5) Hematocrit 34.2 % (36.0-47.0) Mean Corpuscular Volume 84 fL (79-100) Mean Corpuscular Hemoglobin 28 pg (25-35) Mean Corpuscular Hemoglobin Concent 33 g/dL (31-37) Red Cell Distribution Width 16.2 % (11.5-14.5) Platelet Count 366 x10^3/uL (140-400) Neutrophils (%) (Auto) 75 % (31-73) Lymphocytes (%) (Auto) 15 % (24-48) Monocytes (%) (Auto) 9 % (0-9) Eosinophils (%) (Auto) 0 % (0-3) Basophils (%) (Auto) 0 % (0-3) Neutrophils # (Auto) 8.3 x10^3uL (1.8-7.7) Lymphocytes # (Auto) 1.7 x10^3/uL (1.0-4.8) Monocytes # (Auto) 1.0 x10^3/uL (0.0-1.1) Eosinophils # (Auto) 0.0 x10^3/uL (0.0-0.7) Basophils # (Auto) 0.0 x10^3/uL (0.0-0.2) Sodium Level 139 mmol/L (136-145) Potassium Level 4.5 mmol/L (3.5-5.1) Chloride Level 102 mmol/L (98-107) Carbon Dioxide Level 27 mmol/L (21-32) Anion Gap 10 (6-14) Blood Urea Nitrogen 20 mg/dL (7-20) Creatinine 1.5 mg/dL (0.6-1.0) Estimated GFR (Cockcroft-Gault) 34.7 Glucose Level 118 mg/dL (70-99) Calcium Level 9.1 mg/dL (8.5-10.1) Micro Microbiology Proteus mirabilis 4+ AEROBIC RES 2 Final Comment Pseudomonas aeruginosa 4+ ANTIMICROBIAL SUSCEPTIBILITY Final Comment S = Susceptible; I = Intermediate; R = Resistant P = Positive; N = Negative MICS are expressed in micrograms per mL Antibiotic RSLT#1 RSLT#2 RSLT#3 RSLT#4 Amikacin S<=2 Ampicillin S<=2 Cefepime S<=0.12 S =2 Ceftazidime S =4 Ceftriaxone S<=0.25 Cefuroxime S<=1 Ciprofloxacin S<=0.25 S<=0.25 Ertapenem S<=0.12 Gentamicin S<=1 S<=1 Imipenem S =2 CONTINUED ON NEXT PAGE RUN DATE: 12/25/17 PAGE 2 RUN TIME: 1908 [facility] [address] [place] [address] Christopher Barroso M.D., [employer]er Operator SPEC: [id number] PATIENT: RICKY BATISTA [id number] ( Continued) Procedure Result ANTIMICROBIAL SUSCEPTIBILITY Final (continued) Levofloxacin S<=0.12 S =1 Meropenem S =1 S<=0.25 Piperacillin S =8 Piperacillin/Tazobactam S<=4 Tetracycline R>=16 Ticarcillin S =32 Tobramycin S<=1 S<=1 Trimethoprim/Sulfa S<=20 12/20/17 Blood Culture - Final, Complete NO GROWTH AFTER 5 DAYS 12/20/17 Anaerobic/Aerobic Culture - Preliminary, Resulted 12/20/17 Anaerobic Culture Result 1 (JLUIS) - Preliminary, Resulted 12/20/17 Aerobic Culture - Final, Resulted 12/20/17 Aerobic Culture Result 1 (JLUIS) - Final, Resulted 12/20/17 Aerobic Culture Result 2 (JLUIS) - Final, Resulted 12/20/17 Antimicrobic Susceptibility - Final, Resulted 12/20/17 Gram Stain - Final, Resulted 12/20/17 Gram Stain Result 1 (JLUIS) - Final, Resulted 12/20/17 Gram Stain Result 2 (JLUIS) - Final, Resulted Objective Assessment Progressive abdominal wall infection with eschar, necrosis, drainage. Proteus/ PSA. s/p Abdominal wall debridement of skin subcutaneous tissue and removal of mesh 12/27 -Failed OP p.o. antibiotics in Nov with Zyvox followed by doxycycline. CT abdomen unchanged from Nov Leukocytosis - post op and Dexamethasone 12/27 GOLDY on CKD History of hernia repair with mesh placement in 09/2017. History of wound infection with dehiscence, treated in 10/2017. Diabetes. History of subdural hematoma with mild cognitive dysfunction. History of previous exploratory laparotomy for small bowel resection, removal of mesh, ventral incisional hernia repair and debridement of abdominal wall, 08/10/2016. History of tobaccoism, quit. Status post hysterectomy. Chronic obstructive pulmonary disease. Diarrhea. C. diff neg 12/21 RUL mass on chest CT Plan Plan of Care PICC today Labs in am Continue Zosyn, Diflucan, Zyvox Awaiting final culture results Local wound care D/w D/w nursing and MARII Langston MD Dec 28, 2017 09:36
--- NOTE | 2017-12-28 09:37 | PDOC ---
PROGRESS NOTES Subjective Subjective doing well Objective Objective Vital Signs Date Time Temp Pulse Resp B/P (MAP) Pulse Ox O2 Delivery O2 Flow Rate FiO2 12/28/17 08:54 96 Room Air 12/28/17 07:00 97.7 88 20 174/77 (109) 97.7 12/28/17 00:43 10.0 Intake and Output 12/28/17 07:00 Intake Total 1150 ml Output Total 51 ml Balance 1099 ml Intake Oral 300 ml IV Total 850 ml Urine/Stool Mix 1 ml Estimated Blood Loss 50 ml # Voids 4 # Bowel Movements 2 Physical Exam Physical Exam not in room, went to OR Abdomen: Soft, Other (wound vac) General: Alert, Oriented X3, Cooperative, No acute distress Neck: Supple Neuro: Normal speech Psych/Mental Status: Mood NL COMMENT wound vac placed Assessment Assessment FINAL IMPRESSION: 1. Abdominal wall infection with skin necrosis, drainage and infection. 2. Recent wound dehiscence in the upper part of the incision. 3. Recent ventral hernia repair 2 months ago. 4. History of cerebrovascular accident with cognitive deficit. 5. Chronic obstructive pulmonary disease. 6. Hypertension. 7. Hypernatremia. 8. Hypokalemia. 9. Borderline DM 10.lung nodule 2 cm rt middle lobe, new finding. PLAN:POD#1,surgical debridement of abd wall necrotic ulcer +removal of mesh ? PICC line IV antibiotics for now.Zosyn+diflucan proteus and pseudomonas in wound c/s CT chest positive for lung nodule less than 2 cm , will do out pt work up spoke with pts ?LTAC vs SNU dvt prevention with Lovenox cr 1.5 c diff -neg. GI consult appreciated Comment Review of Relevant I have reviewed the following items ranulfo (where applicable) has been applied. Labs Laboratory Tests Test 12/27/17 11:07 12/27/17 16:45 12/28/17 05:55 12/28/17 07:41 Glucose (Fingerstick) 104 mg/dL (70-99) 143 mg/dL (70-99) 133 mg/dL (70-99) White Blood Count 11.0 x10^3/uL (4.0-11.0) Red Blood Count 4.09 x10^6/uL (3.50-5.40) Hemoglobin 11.3 g/dL (12.0-15.5) Hematocrit 34.2 % (36.0-47.0) Mean Corpuscular Volume 84 fL (79-100) Mean Corpuscular Hemoglobin 28 pg (25-35) Mean Corpuscular Hemoglobin Concent 33 g/dL (31-37) Red Cell Distribution Width 16.2 % (11.5-14.5) Platelet Count 366 x10^3/uL (140-400) Neutrophils (%) (Auto) 75 % (31-73) Lymphocytes (%) (Auto) 15 % (24-48) Monocytes (%) (Auto) 9 % (0-9) Eosinophils (%) (Auto) 0 % (0-3) Basophils (%) (Auto) 0 % (0-3) Neutrophils # (Auto) 8.3 x10^3uL (1.8-7.7) Lymphocytes # (Auto) 1.7 x10^3/uL (1.0-4.8) Monocytes # (Auto) 1.0 x10^3/uL (0.0-1.1) Eosinophils # (Auto) 0.0 x10^3/uL (0.0-0.7) Basophils # (Auto) 0.0 x10^3/uL (0.0-0.2) Sodium Level 139 mmol/L (136-145) Potassium Level 4.5 mmol/L (3.5-5.1) Chloride Level 102 mmol/L (98-107) Carbon Dioxide Level 27 mmol/L (21-32) Anion Gap 10 (6-14) Blood Urea Nitrogen 20 mg/dL (7-20) Creatinine 1.5 mg/dL (0.6-1.0) Estimated GFR (Cockcroft-Gault) 34.7 Glucose Level 118 mg/dL (70-99) Calcium Level 9.1 mg/dL (8.5-10.1) Microbiology 12/20/17 Blood Culture - Final, Complete NO GROWTH AFTER 5 DAYS 12/20/17 Anaerobic/Aerobic Culture - Final, Complete 12/20/17 Anaerobic Culture Result 1 (JLUIS) - Final, Complete 12/20/17 Aerobic Culture - Final, Complete 12/20/17 Aerobic Culture Result 1 (JLUIS) - Final, Complete 12/20/17 Aerobic Culture Result 2 (JLUIS) - Final, Complete 12/20/17 Antimicrobic Susceptibility - Final, Complete 12/20/17 Gram Stain - Final, Complete 12/20/17 Gram Stain Result 1 (JLUIS) - Final, Complete 12/20/17 Gram Stain Result 2 (JLUIS) - Final, Complete Medications Current Medications Dexamethasone Sodium Phosphate (Decadron) 20 mg STK-MED ONCE .ROUTE ; Start at 09:37; Stop 12/27/17 at 09:38; Status DC Enoxaparin Sodium (Lovenox 40mg Syringe) 40 mg DAILY SQ Last administered on at 08:28; Start 12/27/17 at 09:45 Fentanyl Citrate (Fentanyl 2ml Vial) 100 mcg STK-MED ONCE .ROUTE ; Start at 09:37; Stop 12/27/17 at 09:38; Status DC Ondansetron HCl (Zofran) 4 mg STK-MED ONCE .ROUTE ; Start 12/27/17 at 09:37; Stop 12/27/17 at 09:38; Status DC Propofol 20 ml @ As Directed STK-MED ONCE IV ; Start 12/27/17 at 09:37; Stop 12/27/17 at 09:38; Status DC Sevoflurane (Ultane) 60 ml STK-MED ONCE IH ; Start 12/27/17 at 09:37; Stop at 09:38; Status DC Sodium Chloride (Normal Saline Flush) 3 ml QSHIFT PRN IV AFTER MEDS AND BLOOD DRAWS; Start 12/27/17 at 09:45 Vitals/I & O Vital Sign - Last 24 Hours 12/27/17 12/27/17 12/27/17 12/27/17 09:41 09:41 09:56 10:11 Temp 97.0 97.0 Pulse 83 84 83 Resp 20 20 20 B/P (MAP) 158/68 144/62 156/67 Pulse Ox 100 100 100 O2 Delivery Simple Mask Mask Simple Mask Simple Mask O2 Flow Rate 10 10 10 10 12/27/17 12/27/17 12/27/17 12/27/17 10:26 10:50 11:00 11:15 Temp 96.9 96.6 96.9 96.6 Pulse 86 83 87 86 Resp 20 18 18 B/P (MAP) 167/73 181/70 (107) 180/70 (106) 132/70 (90) Pulse Ox 94 99 94 O2 Delivery Room Air Room Air Room Air Room Air 12/27/17 12/27/17 12/27/17 12/27/17 11:23 11:30 11:45 12:45 Pulse 96 94 106 Resp 18 18 20 B/P (MAP) 162/78 (106) 149/57 (87) 167/71 (103) Pulse Ox 96 97 94 O2 Delivery Room Air Room Air Room Air Room Air 12/27/17 12/27/17 12/27/17 12/27/17 13:15 14:15 15:10 15:15 Pulse 103 94 99 Resp 20 18 18 B/P (MAP) 158/69 (98) 155/70 (98) 142/67 (92) Pulse Ox 98 96 O2 Delivery Room Air Room Air Room Air Room Air 12/27/17 12/27/17 12/27/17 12/27/17 19:15 20:00 20:27 20:27 Temp 98.7 98.7 Pulse 110 Resp 18 B/P (MAP) 152/68 (96) Pulse Ox 94 O2 Delivery Room Air Mask Room Air Room Air 12/27/17 12/28/17 12/28/17 12/28/17 23:13 00:43 01:43 03:00 Temp 98.2 97.9 98.2 97.9 Pulse 106 100 Resp 20 16 16 20 B/P (MAP) 126/87 (100) 187/85 (119) Pulse Ox 94 94 94 92 O2 Delivery Room Air Room Air O2 Flow Rate 10.0 12/28/17 12/28/17 12/28/17 12/28/17 04:22 07:00 07:21 08:54 Temp 97.7 97.7 Pulse 100 88 Resp 20 B/P (MAP) 187/85 174/77 (109) Pulse Ox 97 96 96 O2 Delivery Room Air Room Air Room Air Intake and Output 12/27/17 12/27/17 12/28/17 15:00 23:00 07:00 Intake Total 850 ml 300 ml Output Total 50 ml 1 ml Balance 800 ml 299 ml CHRISTOPH LE MD Dec 28, 2017 09:37
[2017-12-28 11:00] VITALS: BP 159/77
--- NOTE | 2017-12-28 11:46 | PDOC ---
Subjective: Subjective: Diarrhea and perianal pain better. Objective: Objective: Reviewed w/ RN - 1 stool earlier, gave Imodium. Vital Signs: Vital Signs Date Time Temp Pulse Resp B/P (MAP) Pulse Ox O2 Delivery O2 Flow Rate FiO2 12/28/17 11:22 Room Air 12/28/17 11:00 97.5 84 20 159/77 (104) 94 97.5 12/28/17 00:43 10.0 Labs: Laboratory Tests Test 12/27/17 16:45 12/28/17 05:55 12/28/17 07:41 12/28/17 10:56 Glucose (Fingerstick) 143 mg/dL 133 mg/dL 118 mg/dL White Blood Count 11.0 x10^3/uL Red Blood Count 4.09 x10^6/uL Hemoglobin 11.3 g/dL Hematocrit 34.2 % Mean Corpuscular Volume 84 fL Mean Corpuscular Hemoglobin 28 pg Mean Corpuscular Hemoglobin Concent 33 g/dL Red Cell Distribution Width 16.2 % Platelet Count 366 x10^3/uL Neutrophils (%) (Auto) 75 % Lymphocytes (%) (Auto) 15 % Monocytes (%) (Auto) 9 % Eosinophils (%) (Auto) 0 % Basophils (%) (Auto) 0 % Neutrophils # (Auto) 8.3 x10^3uL Lymphocytes # (Auto) 1.7 x10^3/uL Monocytes # (Auto) 1.0 x10^3/uL Eosinophils # (Auto) 0.0 x10^3/uL Basophils # (Auto) 0.0 x10^3/uL Sodium Level 139 mmol/L Potassium Level 4.5 mmol/L Chloride Level 102 mmol/L Carbon Dioxide Level 27 mmol/L Anion Gap 10 Blood Urea Nitrogen 20 mg/dL Creatinine 1.5 mg/dL Estimated GFR (Cockcroft-Gault) 34.7 Glucose Level 118 mg/dL Calcium Level 9.1 mg/dL PE: GEN: NAD, walking to commode LUNGS: room air HEART: RRR NEURO/PSYCH: A & O 3 A/P: S/p abd wall debridement and removal of mesh Perianal irritation/pain, diarrhea - better -- Improved GI-coleman, continue same. Screening colonoscopy as outpt later on. SHAHNAZ SABA Dec 28, 2017 11:46
[2017-12-28 15:00] VITALS: BP 194/70
[2017-12-28 19:00] VITALS: BP 123/57
[2017-12-28] MEDS: AMITRIPTYLINE HCL 10 MG TABLET. PO SCH (20:45)
[2017-12-28 23:18] VITALS: BP 154/60
[2017-12-29] MEDS: PIPERACILLIN/TAZOBACTAM 3.375 GM in IV NORMAL SALINE 50ML 50 ML IV SCH ×5 (00:19→23:50)
[2017-12-29 03:51] VITALS: BP 127/57
[2017-12-29 06:37] LABS: BASO % 1 % (0-3); EOS # 0.3 x10^3/uL (0.0-0.7); EOS % 4 % (0-3); HEMATOCRIT 31.7 % (36.0-47.0); HEMOGLOBIN 10.5 g/dL (12.0-15.5); LYMPH # 1.9 x10^3/uL (1.0-4.8); LYMPH % 27 % (24-48); MEAN CORPUSCULAR HEMOGLOBIN 28 pg (25-35); MEAN CORPUSCULAR HGB CONC 33 g/dL (31-37); MEAN CORPUSCULAR VOLUME 84 fL (79-100); MONO # 0.6 x10^3/uL (0.0-1.1); MONO % 8 % (0-9); NEUT # 4.4 x10^3uL (1.8-7.7); NEUT % 60 % (31-73); PLATELET COUNT 314 x10^3/uL (140-400); RED BLOOD COUNT 3.77 x10^6/uL (3.50-5.40); RED CELL DISTRIBUTION WIDTH 16.2 % (11.5-14.5); WHITE BLOOD COUNT 7.2 x10^3/uL (4.0-11.0)
[2017-12-29] MEDS: POTASSIUM CL 30MEQ D5-0.45NACL 1,000 ML IV SCH (06:49)
[2017-12-29 06:52] LABS: CALCIUM 8.9 mg/dL (8.5-10.1); CREATININE 1.3 mg/dL (0.6-1.0); POTASSIUM 4.4 mmol/L (3.5-5.1)
[2017-12-29 07:00] VITALS: BP 176/72
[2017-12-29] MEDS: BUDESONIDE 0.5 MG/2 ML NEBU. NEB SCH ×2 (07:10→19:30)
[2017-12-29] MEDS: IPRATRPIUM/ALBUTEROL 0.5/2.5MG 3 ML NEBU. NEB SCH ×4 (07:10→19:30)
[2017-12-29] MEDS: COLLAGENASE 250 UNIT/GM TOPICAL OINTMENT 30GM TUBE. TP SCH (07:32)
--- NOTE | 2017-12-29 07:34 | PDOC ---
Infectious Disease Note Subjective Subjective Some abd pain but less. No nausea Feels better overall Appetite fair Denies N/V/F/C/S Vital Sign Vital Signs Vital Signs Date Time Temp Pulse Resp B/P (MAP) Pulse Ox O2 Delivery O2 Flow Rate FiO2 12/29/17 07:13 96 Room Air 12/29/17 03:51 98.0 77 16 127/57 (80) 98.0 Physical Exam PHYSICAL EXAM GENERAL: Lying in the side of the bed, flat affect, NAD - looks better HEENT: No thrush. LUNGS: Clear bilaterally. HEART: S1, S2, no murmurs. ABDOMEN: Soft. Wound vac in place,+ BS EXTREMITIES: No edema, no cyanosis. NEUROLOGIC: Alert, oriented x 3 SKIN: warm without rash PICC RUE -clean Labs Lab Laboratory Tests Test 12/28/17 07:41 12/28/17 10:56 12/28/17 20:39 12/29/17 06:23 Glucose (Fingerstick) 133 mg/dL (70-99) 118 mg/dL (70-99) 111 mg/dL (70-99) White Blood Count 7.2 x10^3/uL (4.0-11.0) Red Blood Count 3.77 x10^6/uL (3.50-5.40) Hemoglobin 10.5 g/dL (12.0-15.5) Hematocrit 31.7 % (36.0-47.0) Mean Corpuscular Volume 84 fL (79-100) Mean Corpuscular Hemoglobin 28 pg (25-35) Mean Corpuscular Hemoglobin Concent 33 g/dL (31-37) Red Cell Distribution Width 16.2 % (11.5-14.5) Platelet Count 314 x10^3/uL (140-400) Neutrophils (%) (Auto) 60 % (31-73) Lymphocytes (%) (Auto) 27 % (24-48) Monocytes (%) (Auto) 8 % (0-9) Eosinophils (%) (Auto) 4 % (0-3) Basophils (%) (Auto) 1 % (0-3) Neutrophils # (Auto) 4.4 x10^3uL (1.8-7.7) Lymphocytes # (Auto) 1.9 x10^3/uL (1.0-4.8) Monocytes # (Auto) 0.6 x10^3/uL (0.0-1.1) Eosinophils # (Auto) 0.3 x10^3/uL (0.0-0.7) Basophils # (Auto) 0.0 x10^3/uL (0.0-0.2) Sodium Level 142 mmol/L (136-145) Potassium Level 4.4 mmol/L (3.5-5.1) Chloride Level 104 mmol/L (98-107) Carbon Dioxide Level 28 mmol/L (21-32) Anion Gap 10 (6-14) Blood Urea Nitrogen 18 mg/dL (7-20) Creatinine 1.3 mg/dL (0.6-1.0) Estimated GFR (Cockcroft-Gault) 41.0 Glucose Level 95 mg/dL (70-99) Calcium Level 8.9 mg/dL (8.5-10.1) Micro Microbiology Proteus mirabilis 4+ AEROBIC RES 2 Final Comment Pseudomonas aeruginosa 4+ ANTIMICROBIAL SUSCEPTIBILITY Final Comment S = Susceptible; I = Intermediate; R = Resistant P = Positive; N = Negative MICS are expressed in micrograms per mL Antibiotic RSLT#1 RSLT#2 RSLT#3 RSLT#4 Amikacin S<=2 Ampicillin S<=2 Cefepime S<=0.12 S =2 Ceftazidime S =4 Ceftriaxone S<=0.25 Cefuroxime S<=1 Ciprofloxacin S<=0.25 S<=0.25 Ertapenem S<=0.12 Gentamicin S<=1 S<=1 Imipenem S =2 CONTINUED ON NEXT PAGE RUN DATE: 12/25/17 PAGE 2 RUN TIME: 1908 [facility] [address] [place] [address] Christopher Barroso M.D., Digital Strategist SPEC: [id number] PATIENT: RICKY BATISTA [id number] ( Continued) Procedure Result ANTIMICROBIAL SUSCEPTIBILITY Final (continued) Levofloxacin S<=0.12 S =1 Meropenem S =1 S<=0.25 Piperacillin S =8 Piperacillin/Tazobactam S<=4 Tetracycline R>=16 Ticarcillin S =32 Tobramycin S<=1 S<=1 Trimethoprim/Sulfa S<=20 12/20/17 Blood Culture - Final, Complete NO GROWTH AFTER 5 DAYS 12/20/17 Anaerobic/Aerobic Culture - Preliminary, Resulted 12/20/17 Anaerobic Culture Result 1 (JLUIS) - Preliminary, Resulted 12/20/17 Aerobic Culture - Final, Resulted 12/20/17 Aerobic Culture Result 1 (JLUIS) - Final, Resulted 12/20/17 Aerobic Culture Result 2 (JLUIS) - Final, Resulted 12/20/17 Antimicrobic Susceptibility - Final, Resulted 12/20/17 Gram Stain - Final, Resulted 12/20/17 Gram Stain Result 1 (JLUIS) - Final, Resulted 12/20/17 Gram Stain Result 2 (JLUIS) - Final, Resulted Objective Assessment Progressive abdominal wall infection with eschar, necrosis, drainage. Proteus/ PSA. s/p Abdominal wall debridement of skin subcutaneous tissue and removal of mesh 12/27 -Failed OP p.o. antibiotics in Nov with Zyvox followed by doxycycline. CT abdomen unchanged from Nov Leukocytosis - post op and Dexamethasone 12/27 GOLDY on CKD History of hernia repair with mesh placement in 09/2017. History of wound infection with dehiscence, treated in 10/2017. Diabetes. History of subdural hematoma with mild cognitive dysfunction. History of previous exploratory laparotomy for small bowel resection, removal of mesh, ventral incisional hernia repair and debridement of abdominal wall, 08/10/2016. History of tobaccoism, quit. Status post hysterectomy. Chronic obstructive pulmonary disease. Diarrhea. C. diff neg 12/21 RUL mass on chest CT Plan Plan of Care Clinically improving since procedure Continue Zosyn, Diflucan, Zyvox Awaiting final culture results Local wound care D/w nursing MARII PRINCE MD Dec 29, 2017 07:34
[2017-12-29] MEDS: INSULIN LISPRO 300 UNITS/3 ML INSULN.PEN. SQ SCH ×3 (08:00→17:00)
--- NOTE | 2017-12-29 08:10 | PDOC ---
SURGICAL PROGRESS NOTE Subjective Pt tolerating wound vac, feels better overall Vital Signs Vital Signs Date Time Temp Pulse Resp B/P (MAP) Pulse Ox O2 Delivery O2 Flow Rate FiO2 12/29/17 07:13 96 Room Air 12/29/17 07:00 97.6 82 20 176/72 (106) 97.6 I&O Intake and Output 12/29/17 07:00 Intake Total 2052 ml Output Total 1000 ml Balance 1052 ml Intake Oral 460 ml IV Total 1592 ml Urine/Stool Mix 1000 ml # Voids 6 # Bowel Movements 3 General: Alert, Oriented X3, Cooperative, No acute distress Abdomen: Soft, No tenderness Labs Laboratory Tests Test 12/27/17 11:07 12/27/17 16:45 12/28/17 05:55 12/28/17 07:41 Glucose (Fingerstick) 104 mg/dL (70-99) 143 mg/dL (70-99) 133 mg/dL (70-99) White Blood Count 11.0 x10^3/uL (4.0-11.0) Red Blood Count 4.09 x10^6/uL (3.50-5.40) Hemoglobin 11.3 g/dL (12.0-15.5) Hematocrit 34.2 % (36.0-47.0) Mean Corpuscular Volume 84 fL (79-100) Mean Corpuscular Hemoglobin 28 pg (25-35) Mean Corpuscular Hemoglobin Concent 33 g/dL (31-37) Red Cell Distribution Width 16.2 % (11.5-14.5) Platelet Count 366 x10^3/uL (140-400) Neutrophils (%) (Auto) 75 % (31-73) Lymphocytes (%) (Auto) 15 % (24-48) Monocytes (%) (Auto) 9 % (0-9) Eosinophils (%) (Auto) 0 % (0-3) Basophils (%) (Auto) 0 % (0-3) Neutrophils # (Auto) 8.3 x10^3uL (1.8-7.7) Lymphocytes # (Auto) 1.7 x10^3/uL (1.0-4.8) Monocytes # (Auto) 1.0 x10^3/uL (0.0-1.1) Eosinophils # (Auto) 0.0 x10^3/uL (0.0-0.7) Basophils # (Auto) 0.0 x10^3/uL (0.0-0.2) Sodium Level 139 mmol/L (136-145) Potassium Level 4.5 mmol/L (3.5-5.1) Chloride Level 102 mmol/L (98-107) Carbon Dioxide Level 27 mmol/L (21-32) Anion Gap 10 (6-14) Blood Urea Nitrogen 20 mg/dL (7-20) Creatinine 1.5 mg/dL (0.6-1.0) Estimated GFR (Cockcroft-Gault) 34.7 Glucose Level 118 mg/dL (70-99) Calcium Level 9.1 mg/dL (8.5-10.1) Test 12/28/17 10:56 12/28/17 20:39 12/29/17 06:23 Glucose (Fingerstick) 118 mg/dL (70-99) 111 mg/dL (70-99) White Blood Count 7.2 x10^3/uL (4.0-11.0) Red Blood Count 3.77 x10^6/uL (3.50-5.40) Hemoglobin 10.5 g/dL (12.0-15.5) Hematocrit 31.7 % (36.0-47.0) Mean Corpuscular Volume 84 fL (79-100) Mean Corpuscular Hemoglobin 28 pg (25-35) Mean Corpuscular Hemoglobin Concent 33 g/dL (31-37) Red Cell Distribution Width 16.2 % (11.5-14.5) Platelet Count 314 x10^3/uL (140-400) Neutrophils (%) (Auto) 60 % (31-73) Lymphocytes (%) (Auto) 27 % (24-48) Monocytes (%) (Auto) 8 % (0-9) Eosinophils (%) (Auto) 4 % (0-3) Basophils (%) (Auto) 1 % (0-3) Neutrophils # (Auto) 4.4 x10^3uL (1.8-7.7) Lymphocytes # (Auto) 1.9 x10^3/uL (1.0-4.8) Monocytes # (Auto) 0.6 x10^3/uL (0.0-1.1) Eosinophils # (Auto) 0.3 x10^3/uL (0.0-0.7) Basophils # (Auto) 0.0 x10^3/uL (0.0-0.2) Sodium Level 142 mmol/L (136-145) Potassium Level 4.4 mmol/L (3.5-5.1) Chloride Level 104 mmol/L (98-107) Carbon Dioxide Level 28 mmol/L (21-32) Anion Gap 10 (6-14) Blood Urea Nitrogen 18 mg/dL (7-20) Creatinine 1.3 mg/dL (0.6-1.0) Estimated GFR (Cockcroft-Gault) 41.0 Glucose Level 95 mg/dL (70-99) Calcium Level 8.9 mg/dL (8.5-10.1) Laboratory Tests Test 12/28/17 10:56 12/28/17 20:39 12/29/17 06:23 Glucose (Fingerstick) 118 mg/dL (70-99) 111 mg/dL (70-99) White Blood Count 7.2 x10^3/uL (4.0-11.0) Red Blood Count 3.77 x10^6/uL (3.50-5.40) Hemoglobin 10.5 g/dL (12.0-15.5) Hematocrit 31.7 % (36.0-47.0) Mean Corpuscular Volume 84 fL (79-100) Mean Corpuscular Hemoglobin 28 pg (25-35) Mean Corpuscular Hemoglobin Concent 33 g/dL (31-37) Red Cell Distribution Width 16.2 % (11.5-14.5) Platelet Count 314 x10^3/uL (140-400) Neutrophils (%) (Auto) 60 % (31-73) Lymphocytes (%) (Auto) 27 % (24-48) Monocytes (%) (Auto) 8 % (0-9) Eosinophils (%) (Auto) 4 % (0-3) Basophils (%) (Auto) 1 % (0-3) Neutrophils # (Auto) 4.4 x10^3uL (1.8-7.7) Lymphocytes # (Auto) 1.9 x10^3/uL (1.0-4.8) Monocytes # (Auto) 0.6 x10^3/uL (0.0-1.1) Eosinophils # (Auto) 0.3 x10^3/uL (0.0-0.7) Basophils # (Auto) 0.0 x10^3/uL (0.0-0.2) Sodium Level 142 mmol/L (136-145) Potassium Level 4.4 mmol/L (3.5-5.1) Chloride Level 104 mmol/L (98-107) Carbon Dioxide Level 28 mmol/L (21-32) Anion Gap 10 (6-14) Blood Urea Nitrogen 18 mg/dL (7-20) Creatinine 1.3 mg/dL (0.6-1.0) Estimated GFR (Cockcroft-Gault) 41.0 Glucose Level 95 mg/dL (70-99) Calcium Level 8.9 mg/dL (8.5-10.1) Problem List s/p debridement OK to work on d/c cont wound vac DANYA EPSTEIN MD Dec 29, 2017 08:10
[2017-12-29] MEDS: ENOXAPARIN 40 MG/0.4 ML SYRINGE. SQ SCH (08:52)
[2017-12-29] MEDS: FLUCONAZOLE 100 MG TABLET. PO SCH (08:52)
[2017-12-29] MEDS: LINEZOLID 600 MG TABLET PO SCH ×2 (08:52→21:04)
[2017-12-29] MEDS: ASCORBIC ACID 500 MG TABLET PO SCH ×2 (08:52→21:05)
[2017-12-29] MEDS: MULTIVITAMIN with MINERAL TABLET. PO SCH (08:52)
[2017-12-29] MEDS: CALCIUM CARBONATE 500 MG TABLET PO SCH (08:52)
[2017-12-29] MEDS: LACTOBACILLUS RHAMNOSUS GG 1 CAPSULE. PO SCH ×2 (08:52→21:05)
[2017-12-29] MEDS: oxyCODONE/APAP 5/325 1 TAB TABLET PO PRN (08:53)
[2017-12-29] MEDS: TIMOLOL 0.5% OPHTH SOLUTION 5ML BOTTLE. OD SCH ×2 (08:56→21:32)
[2017-12-29] MEDS: BRIMONIDINE 0.2% OPHTH SOLUTION 5ML BOTTLE. OD SCH ×2 (08:56→21:31)
[2017-12-29] MEDS: LABETALOL 20 MG/4 ML DISP.SYRIN. IVP PRN ×2 (08:56→21:05)
[2017-12-29] MEDS: DORZOLAMIDE 2% OPHTH SOLUTION 10ML BOTTLE. OD SCH ×2 (08:56→21:00)
[2017-12-29] MEDS: BIMATOPROST OD SCH ×2 (08:56→21:00)
[2017-12-29] MEDS ORDERED: ENOX40DI3 SQ (09:28)
[2017-12-29] MEDS ORDERED: Fluconazole PO (09:28)
[2017-12-29] MEDS ORDERED: PIPE3.377 IV (09:28)
[2017-12-29] MEDS ORDERED: hydrALAZINE 10 MG TABLET PO PRN (09:30)
--- NOTE | 2017-12-29 09:30 | DISCH ---
DISCHARGE DISCHARGE INFORMATION: DISCHARGE DATE: Dec 29, 2017 CONDITION ON DISCHARGE: Stable CODE STATUS: Code Status: Full MCFP: SNF STAY <30 DAYS: Yes HOSPICE: HOSPICE: No HOSPICE EVAL & TREAT: No LTAC: ADMIT TO LTAC: No POST DISCHARGE ORDERS: ACTIVITY ORDERS: Activity as tolerated WEIGHT BEARING STATUS: As tolerated DIET AFTER DISCHARGE: Low Sodium 2 gm WOUND/INCISION CARE: Other, see below (wound vac) CHECKS AFTER DISCHARGE: CHECKS AFTER DISCHARGE: Check blood press - daily TREATMENT/EQUIPMENT ORDERS: ADAPTIVE EQUIPMENT NEEDED: None INFUSION EQUIPMENT NEEDED: PICC Line Physical Therapy For: Evalulation/Treatment Occupational Therapy For: Evaluation/Treatment DISCHARGE MEDICATIONS: Home Meds Active Scripts Oxycodone/Apap 5-325 (PERCOCET 5-325 MG TABLET) 1 Each Tablet, 1 TAB PO PRN Q6HRS PRN for PAIN, #10 TAB 0 Refills Prov:FRANCES PHILLIPS DO 12/16/17 Linezolid (ZYVOX) 600 Mg Tablet, 600 MG PO BID for 14 Days, #28 TAB Prov:CHRISTOPH LE MD 11/15/17 Reported Medications Hydrocortisone (PROCTOCREAM-HC) 30 Gm Cream..g., 1 RASHAAD TP BID, #30 GM 12/21/17 Gabapentin (GABAPENTIN) 300 Mg Capsule, 300 MG PO TID, CAP 12/21/17 Hydrocortisone Acetate (ANUSOL-HC) 25 Mg Supp.rect, 1 SUPP RC BID, #14 SUPP 12/21/17 Hydrocodone/Apap 5-325 (NORCO 5-325 TABLET) 1 Each Tablet, 1 TAB PO PRN Q6HRS PRN for PAIN, TAB 0 Refills 12/21/17 Clonidine Hcl (CLONIDINE HCL) 0.1 Mg Tablet, 1 TAB PO PRN TID PRN for HYPERTENSION, SEE COMMENTS, #30 TAB 2 Refills 12/21/17 Brinzolamide (AZOPT) 10 Ml Drops.susp, 1 DROP OD BID 12/07/16 Amitriptyline Hcl (AMITRIPTYLINE HCL) 10 Mg Tablet, 10 MG PO QHS 12/07/16 Calcium Carbonate (CALCIUM) 600 Mg Tablet, 600 MG PO DAILY, TAB 12/02/16 Multivitamin (MULTIVITAMINS) 1 Each Capsule, 1 EACH PO DAILY, CAP 12/02/16 Meclizine Hcl (MECLIZINE HCL) 25 Mg Tablet, 1 TAB PO PRN TID PRN for DIZZINESS, #90 TAB 12/02/16 Albuterol Sulfate (VENTOLIN HFA INHALER) 18 Gm Hfa.aer.ad, 18 GM INH PRN PRN for SHORTNESS OF BREATH, #18 08/02/16 Bimatoprost (LUMIGAN) 2.5 Ml Drops, 2.5 ML OD BID, #3 08/02/16 Brimonidine Tartrate/Timolol (COMBIGAN EYE DROPS) 5 Ml Drops, 5 ML OD BID, #5 08/02/16 CHRISTOPH LE MD Dec 29, 2017 09:30
--- NOTE | 2017-12-29 09:33 | PDOC ---
PROGRESS NOTES Subjective Subjective feels ok Objective Objective Vital Signs Date Time Temp Pulse Resp B/P (MAP) Pulse Ox O2 Delivery O2 Flow Rate FiO2 12/29/17 08:56 82 176/72 12/29/17 08:53 Room Air 12/29/17 07:13 96 12/29/17 07:00 97.6 20 97.6 Intake and Output 12/29/17 07:00 Intake Total 2052 ml Output Total 1000 ml Balance 1052 ml Intake Oral 460 ml IV Total 1592 ml Urine/Stool Mix 1000 ml # Voids 6 # Bowel Movements 3 Physical Exam Physical Exam not in room, went to OR Abdomen: Soft, No tenderness General: Alert, Oriented X3, Cooperative, No acute distress Neck: Supple Neuro: Normal speech Psych/Mental Status: Mood NL COMMENT wound vac placed Assessment Assessment FINAL IMPRESSION: 1. Abdominal wall infection with skin necrosis, drainage and infection. 2. Recent wound dehiscence in the upper part of the incision. 3. Recent ventral hernia repair 2 months ago. 4. History of cerebrovascular accident with cognitive deficit. 5. Chronic obstructive pulmonary disease. 6. Hypertension. 7. Hypernatremia. 8. Hypokalemia. 9. Borderline DM 10.lung nodule 2 cm rt middle lobe, new finding. PLAN: ?SNU today. POD#2,surgical debridement of abd wall necrotic ulcer +removal of mesh 12/27/17 PICC line placed 12/28/17 IV antibiotics for now.Zosyn+diflucan+zyvox proteus and pseudomonas in wound c/s CT chest positive for lung nodule less than 2 cm , will do out pt work up spoke with pts dvt prevention with Lovenox cr 1.3 c diff -neg. pt/ot Comment Review of Relevant I have reviewed the following items ranulfo (where applicable) has been applied. Labs Laboratory Tests Test 12/28/17 10:56 12/28/17 20:39 12/29/17 06:23 Glucose (Fingerstick) 118 mg/dL (70-99) 111 mg/dL (70-99) White Blood Count 7.2 x10^3/uL (4.0-11.0) Red Blood Count 3.77 x10^6/uL (3.50-5.40) Hemoglobin 10.5 g/dL (12.0-15.5) Hematocrit 31.7 % (36.0-47.0) Mean Corpuscular Volume 84 fL (79-100) Mean Corpuscular Hemoglobin 28 pg (25-35) Mean Corpuscular Hemoglobin Concent 33 g/dL (31-37) Red Cell Distribution Width 16.2 % (11.5-14.5) Platelet Count 314 x10^3/uL (140-400) Neutrophils (%) (Auto) 60 % (31-73) Lymphocytes (%) (Auto) 27 % (24-48) Monocytes (%) (Auto) 8 % (0-9) Eosinophils (%) (Auto) 4 % (0-3) Basophils (%) (Auto) 1 % (0-3) Neutrophils # (Auto) 4.4 x10^3uL (1.8-7.7) Lymphocytes # (Auto) 1.9 x10^3/uL (1.0-4.8) Monocytes # (Auto) 0.6 x10^3/uL (0.0-1.1) Eosinophils # (Auto) 0.3 x10^3/uL (0.0-0.7) Basophils # (Auto) 0.0 x10^3/uL (0.0-0.2) Sodium Level 142 mmol/L (136-145) Potassium Level 4.4 mmol/L (3.5-5.1) Chloride Level 104 mmol/L (98-107) Carbon Dioxide Level 28 mmol/L (21-32) Anion Gap 10 (6-14) Blood Urea Nitrogen 18 mg/dL (7-20) Creatinine 1.3 mg/dL (0.6-1.0) Estimated GFR (Cockcroft-Gault) 41.0 Glucose Level 95 mg/dL (70-99) Calcium Level 8.9 mg/dL (8.5-10.1) Microbiology 12/20/17 Blood Culture - Final, Complete NO GROWTH AFTER 5 DAYS 12/27/17 Anaerobic/Aerobic Culture, Resulted Pending 12/27/17 Anaerobic Culture Result 1 (JLUIS), Resulted Pending 12/27/17 Aerobic Culture, Resulted Pending 12/27/17 Aerobic Culture Result 1 (JLIUS), Resulted Pending 12/27/17 Gram Stain - Final, Resulted 12/27/17 Gram Stain Result 1 (JLUIS) - Final, Resulted 12/27/17 Gram Stain Result 2 (JLUIS) - Final, Resulted Vitals/I & O Vital Sign - Last 24 Hours 12/28/17 12/28/17 12/28/17 12/28/17 11:00 11:22 11:50 15:00 Temp 97.5 98.1 97.5 98.1 Pulse 84 91 Resp 20 16 B/P (MAP) 159/77 (104) 194/70 (111) Pulse Ox 94 96 96 O2 Delivery Room Air Room Air Room Air Room Air 12/28/17 12/28/17 12/28/17 12/28/17 15:10 17:26 19:00 19:50 Temp 98.5 98.5 Pulse 91 83 Resp 18 B/P (MAP) 194/70 123/57 (79) Pulse Ox 97 O2 Delivery Room Air Room Air Room Air 12/28/17 12/28/17 12/28/17 12/28/17 20:27 22:29 23:18 23:29 Temp 97.7 97.7 Pulse 81 Resp 18 B/P (MAP) 154/60 (91) Pulse Ox 97 95 95 O2 Delivery Room Air Room Air Room Air Room Air 12/29/17 12/29/17 12/29/17 12/29/17 03:51 07:00 07:13 08:53 Temp 98.0 97.6 98.0 97.6 Pulse 77 82 Resp 16 20 B/P (MAP) 127/57 (80) 176/72 (106) Pulse Ox 98 96 96 O2 Delivery Room Air Room Air Room Air Room Air 12/29/17 08:56 Pulse 82 B/P (MAP) 176/72 Intake and Output 12/28/17 12/28/17 12/29/17 15:00 23:00 07:00 Intake Total 180 ml 1180 ml 692 ml Output Total 750 ml 250 ml Balance 180 ml 430 ml 442 ml CHRISTOPH LE MD Dec 29, 2017 09:32
[2017-12-29 11:00] VITALS: BP 150/62
--- NOTE | 2017-12-29 12:19 | PDOC ---
PULMONARY PROGRESS NOTES Subjective sob is better, Vitals Vital Signs Date Time Temp Pulse Resp B/P (MAP) Pulse Ox O2 Delivery O2 Flow Rate FiO2 12/29/17 11:48 Room Air 12/29/17 11:00 97.9 78 20 150/62 (91) 94 97.9 ROS: No Nausea, No Chest Pain General: Alert, Oriented X4, No acute distress HEENT: Other (nc at perrl) Lungs: Clear Cardiovascular: S1, S2 Abdomen: Soft, Other (wound dressing) Neuro Exam: Alert Extremities: No Edema Skin: Warm Labs Laboratory Tests Test 12/27/17 16:45 12/28/17 05:55 12/28/17 07:41 12/28/17 10:56 Glucose (Fingerstick) 143 mg/dL (70-99) 133 mg/dL (70-99) 118 mg/dL (70-99) White Blood Count 11.0 x10^3/uL (4.0-11.0) Red Blood Count 4.09 x10^6/uL (3.50-5.40) Hemoglobin 11.3 g/dL (12.0-15.5) Hematocrit 34.2 % (36.0-47.0) Mean Corpuscular Volume 84 fL (79-100) Mean Corpuscular Hemoglobin 28 pg (25-35) Mean Corpuscular Hemoglobin Concent 33 g/dL (31-37) Red Cell Distribution Width 16.2 % (11.5-14.5) Platelet Count 366 x10^3/uL (140-400) Neutrophils (%) (Auto) 75 % (31-73) Lymphocytes (%) (Auto) 15 % (24-48) Monocytes (%) (Auto) 9 % (0-9) Eosinophils (%) (Auto) 0 % (0-3) Basophils (%) (Auto) 0 % (0-3) Neutrophils # (Auto) 8.3 x10^3uL (1.8-7.7) Lymphocytes # (Auto) 1.7 x10^3/uL (1.0-4.8) Monocytes # (Auto) 1.0 x10^3/uL (0.0-1.1) Eosinophils # (Auto) 0.0 x10^3/uL (0.0-0.7) Basophils # (Auto) 0.0 x10^3/uL (0.0-0.2) Sodium Level 139 mmol/L (136-145) Potassium Level 4.5 mmol/L (3.5-5.1) Chloride Level 102 mmol/L (98-107) Carbon Dioxide Level 27 mmol/L (21-32) Anion Gap 10 (6-14) Blood Urea Nitrogen 20 mg/dL (7-20) Creatinine 1.5 mg/dL (0.6-1.0) Estimated GFR (Cockcroft-Gault) 34.7 Glucose Level 118 mg/dL (70-99) Calcium Level 9.1 mg/dL (8.5-10.1) Test 12/28/17 20:39 12/29/17 06:23 12/29/17 11:46 Glucose (Fingerstick) 111 mg/dL (70-99) 101 mg/dL (70-99) White Blood Count 7.2 x10^3/uL (4.0-11.0) Red Blood Count 3.77 x10^6/uL (3.50-5.40) Hemoglobin 10.5 g/dL (12.0-15.5) Hematocrit 31.7 % (36.0-47.0) Mean Corpuscular Volume 84 fL (79-100) Mean Corpuscular Hemoglobin 28 pg (25-35) Mean Corpuscular Hemoglobin Concent 33 g/dL (31-37) Red Cell Distribution Width 16.2 % (11.5-14.5) Platelet Count 314 x10^3/uL (140-400) Neutrophils (%) (Auto) 60 % (31-73) Lymphocytes (%) (Auto) 27 % (24-48) Monocytes (%) (Auto) 8 % (0-9) Eosinophils (%) (Auto) 4 % (0-3) Basophils (%) (Auto) 1 % (0-3) Neutrophils # (Auto) 4.4 x10^3uL (1.8-7.7) Lymphocytes # (Auto) 1.9 x10^3/uL (1.0-4.8) Monocytes # (Auto) 0.6 x10^3/uL (0.0-1.1) Eosinophils # (Auto) 0.3 x10^3/uL (0.0-0.7) Basophils # (Auto) 0.0 x10^3/uL (0.0-0.2) Sodium Level 142 mmol/L (136-145) Potassium Level 4.4 mmol/L (3.5-5.1) Chloride Level 104 mmol/L (98-107) Carbon Dioxide Level 28 mmol/L (21-32) Anion Gap 10 (6-14) Blood Urea Nitrogen 18 mg/dL (7-20) Creatinine 1.3 mg/dL (0.6-1.0) Estimated GFR (Cockcroft-Gault) 41.0 Glucose Level 95 mg/dL (70-99) Calcium Level 8.9 mg/dL (8.5-10.1) Laboratory Tests Test 12/28/17 20:39 12/29/17 06:23 12/29/17 11:46 Glucose (Fingerstick) 111 mg/dL (70-99) 101 mg/dL (70-99) White Blood Count 7.2 x10^3/uL (4.0-11.0) Red Blood Count 3.77 x10^6/uL (3.50-5.40) Hemoglobin 10.5 g/dL (12.0-15.5) Hematocrit 31.7 % (36.0-47.0) Mean Corpuscular Volume 84 fL (79-100) Mean Corpuscular Hemoglobin 28 pg (25-35) Mean Corpuscular Hemoglobin Concent 33 g/dL (31-37) Red Cell Distribution Width 16.2 % (11.5-14.5) Platelet Count 314 x10^3/uL (140-400) Neutrophils (%) (Auto) 60 % (31-73) Lymphocytes (%) (Auto) 27 % (24-48) Monocytes (%) (Auto) 8 % (0-9) Eosinophils (%) (Auto) 4 % (0-3) Basophils (%) (Auto) 1 % (0-3) Neutrophils # (Auto) 4.4 x10^3uL (1.8-7.7) Lymphocytes # (Auto) 1.9 x10^3/uL (1.0-4.8) Monocytes # (Auto) 0.6 x10^3/uL (0.0-1.1) Eosinophils # (Auto) 0.3 x10^3/uL (0.0-0.7) Basophils # (Auto) 0.0 x10^3/uL (0.0-0.2) Sodium Level 142 mmol/L (136-145) Potassium Level 4.4 mmol/L (3.5-5.1) Chloride Level 104 mmol/L (98-107) Carbon Dioxide Level 28 mmol/L (21-32) Anion Gap 10 (6-14) Blood Urea Nitrogen 18 mg/dL (7-20) Creatinine 1.3 mg/dL (0.6-1.0) Estimated GFR (Cockcroft-Gault) 41.0 Glucose Level 95 mg/dL (70-99) Calcium Level 8.9 mg/dL (8.5-10.1) Medications Active Scripts Medications Dose Route/Sig Max Daily Dose Days Date Category Proctocream-Hc (Hydrocortisone) 30 Gm Cream..g. 1 Laly TP BID 12/21/17 Reported Gabapentin 300 Mg Capsule 300 Mg PO TID 12/21/17 Reported Anusol-Hc (Hydrocortisone Acetate) 25 Mg Supp.rect 1 Supp RC BID 12/21/17 Reported [place] 5-325 Tablet (Acetaminophen/Hydrocodone Bitart) 1 Each Tablet 1 Tab PO PRN Q6HRS PRN 12/21/17 Reported Clonidine Hcl 0.1 Mg Tablet 1 Tab PO PRN TID PRN 12/21/17 Reported Percocet 5-325 Mg Tablet (Oxycodone/Acetaminophen) 1 Each Tablet 1 Tab PO PRN Q6HRS PRN 12/16/17 Rx Zyvox (Linezolid) 600 Mg Tablet 600 Mg PO BID 14 11/15/17 Rx Azopt (Brinzolamide) 10 Ml Drops.susp 1 Drop OD BID 12/07/16 Reported Amitriptyline Hcl 10 Mg Tablet 10 Mg PO QHS 12/07/16 Reported Calcium (Calcium Carbonate) 600 Mg Tablet 600 Mg PO DAILY 12/02/16 Reported Multivitamins (Multivitamin) 1 Each Capsule 1 Each PO DAILY 12/02/16 Reported Meclizine Hcl 25 Mg Tablet 1 Tab PO PRN TID PRN 12/02/16 Reported Ventolin Hfa Inhaler (Albuterol Sulfate) 18 Gm Hfa.aer.ad 18 Gm INH PRN PRN 08/02/16 Reported Lumigan (Bimatoprost) 2.5 Ml Drops 2.5 Ml OD BID 08/02/16 Reported Combigan Eye Drops (Brimonidine Tartrate/Timolol) 5 Ml Drops 5 Ml OD BID 08/02/16 Reported Impression . IMPRESSION: 1. Abnormal CT chest revealing right upper lobe density suspicious for malignancy, vs pneumonitis ,not present in the film of 2007. 2. 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 3. Chronic obstructive pulmonary disease, unknown FEV1. 4. Tobacco dependent. 5. Progressive abdominal wall infection with recent hernia repair, status post mesh in September of 2017. 6. Diabetes. 7. History of subdural hematoma with mild cognitive dysfunction. 8. Tobacco dependent. Plan . 1. recommend working up the right upper lobe density as an outpatient with pet scan, pfts and possible fine needle aspiration or surgical intervention. fu with dr ji. Appointment given for January 10, 1.45 pm. d/ w RN and Patient/ 2. Continue current medical management. 3. s/p wound debridement 4. antibiotics, 5. The patient instructed on the importance of discontinuing tobacco use. 6. cont BD, ICS discussed w pt ARACELI MICHAEL MD Dec 29, 2017 12:19
--- NOTE | 2017-12-29 13:16 | PDOC ---
Objective: Objective: No stools today per RN. Vital Signs: Vital Signs Date Time Temp Pulse Resp B/P (MAP) Pulse Ox O2 Delivery O2 Flow Rate FiO2 12/29/17 11:48 Room Air 12/29/17 11:00 97.9 78 20 150/62 (91) 94 97.9 Labs: Laboratory Tests Test 12/28/17 20:39 12/29/17 06:23 12/29/17 11:46 Glucose (Fingerstick) 111 mg/dL 101 mg/dL White Blood Count 7.2 x10^3/uL Red Blood Count 3.77 x10^6/uL Hemoglobin 10.5 g/dL Hematocrit 31.7 % Mean Corpuscular Volume 84 fL Mean Corpuscular Hemoglobin 28 pg Mean Corpuscular Hemoglobin Concent 33 g/dL Red Cell Distribution Width 16.2 % Platelet Count 314 x10^3/uL Neutrophils (%) (Auto) 60 % Lymphocytes (%) (Auto) 27 % Monocytes (%) (Auto) 8 % Eosinophils (%) (Auto) 4 % Basophils (%) (Auto) 1 % Neutrophils # (Auto) 4.4 x10^3uL Lymphocytes # (Auto) 1.9 x10^3/uL Monocytes # (Auto) 0.6 x10^3/uL Eosinophils # (Auto) 0.3 x10^3/uL Basophils # (Auto) 0.0 x10^3/uL Sodium Level 142 mmol/L Potassium Level 4.4 mmol/L Chloride Level 104 mmol/L Carbon Dioxide Level 28 mmol/L Anion Gap 10 Blood Urea Nitrogen 18 mg/dL Creatinine 1.3 mg/dL Estimated GFR (Cockcroft-Gault) 41.0 Glucose Level 95 mg/dL Calcium Level 8.9 mg/dL PE: GEN: NAD NEURO/PSYCH: sleeping, not awakened A/P: S/p abd wall debridement and removal of mesh Diarrhea - better -- Improving post-op. Can continue Imodium PRN or try Colestid if indicated. SHAHNAZ SABA Dec 29, 2017 13:16 GEOVANNA NEGRON MD Dec 29, 2017 13:53
[2017-12-29 15:00] VITALS: BP 152/82
--- NOTE | 2017-12-29 17:08 | PATHOLOGY ---
[facility] Accession Number: [id number] . 01 Material submitted: . PART A: ABDOMINAL WALL ABCESS PART B: HERNIA MESH . 01 Clinical history: . Abdominal wall abscess . 02 Diagnosis: A. Segment of fibroadipose tissue, abdominal wall: - Extensive coagulative necrosis with focal acute inflammation/abscess. . B. Segment of mesh, clinically from hernia (Gross only). . (JPM/at;12/29/2017) QTA/12/29/2017 . 02 Electronically signed: . Christohper Barroso MD, Pathologist NPI- [id number] . 01 Gross description: . A. The specimen is received in formalin, labeled "Flora Benjamín, abdominal wall abscess". Received is a large amount of yellow-henson, necrotic-appearing soft tissue with attached black necrotic skin measuring 11.8 x 8.8 x 3.9 cm in aggregate dimensions. Sectioning reveals yellow-henson, necrotic-appearing cut surfaces with no grossly distinct nodules or lesions. The specimen is submitted representatively in cassette A1. . B. The specimen is received in formalin, labeled "Flora Benjamín, hernia mesh". Received is a segment of white-henson mesh-like material measuring 14.8 x 14.2 x 0.1 cm in greatest dimensions. A gross photograph is taken. Sections are not submitted. (CAA; 12/28/2017) QAC/QAC . 02 Pathologist provided ICD-10: L02.211 . 02 CPT . 479028, [id number] Specimen Comment: A courtesy copy of this report has been sent to Specimen Comment: [phone], . Specimen Comment: Report sent to / DR KODURI Performed at: [address], [place], [place] [id number] MD Ruben Head MD Phone: [phone] Performed at: [address] [id number] MD Christopher Barroso MD Phone: [phone]
[2017-12-29 19:00] VITALS: BP 186/73
[2017-12-29] MEDS: AMITRIPTYLINE HCL 10 MG TABLET. PO SCH (21:04)
[2017-12-29 23:00] VITALS: BP 119/65
[2017-12-30] MEDS: HYDROcodone/APAP 5/325MG 1 TAB TABLET PO PRN ×2 (01:22→12:43)
[2017-12-30 03:00] VITALS: BP 164/73
[2017-12-30 04:34] LABS: BILIRUBIN,URINE NEGATIVE (NEG); CLARITY,URINE CLEAR; COLOR,URINE YELLOW; NITRITE,URINE NEGATIVE (NEG); PH,URINE 6.5; PROTEIN,URINE NEGATIVE (NEG-TRACE); UROBILINOGEN,URINE 0.2 mg/dL (0.2 mg/dL)
[2017-12-30 04:58] LABS: BACTERIA,URINE 0 /HPF (0-FEW); RBC,URINE 0 /HPF (0-2); SQUAMOUS EPITHELIAL CELL,UR FEW /LPF; WBC,URINE 0 /HPF (0-4)
[2017-12-30] MEDS: PIPERACILLIN/TAZOBACTAM 3.375 GM in IV NORMAL SALINE 50ML 50 ML IV SCH ×2 (05:57→12:44)
[2017-12-30] MEDS: BUDESONIDE 0.5 MG/2 ML NEBU. NEB SCH (06:55)
[2017-12-30] MEDS: IPRATRPIUM/ALBUTEROL 0.5/2.5MG 3 ML NEBU. NEB SCH ×2 (06:55→11:16)
[2017-12-30 07:00] VITALS: BP 150/67
[2017-12-30] MEDS: COLLAGENASE 250 UNIT/GM TOPICAL OINTMENT 30GM TUBE. TP SCH (07:53)
[2017-12-30] MEDS: INSULIN LISPRO 300 UNITS/3 ML INSULN.PEN. SQ SCH ×2 (07:54→12:00)
[2017-12-30] MEDS: CALCIUM CARBONATE 500 MG TABLET PO SCH (08:47)
[2017-12-30] MEDS: ENOXAPARIN 40 MG/0.4 ML SYRINGE. SQ SCH (08:47)
[2017-12-30] MEDS: FLUCONAZOLE 100 MG TABLET. PO SCH (08:47)
[2017-12-30] MEDS: LINEZOLID 600 MG TABLET PO SCH (08:47)
[2017-12-30] MEDS: LACTOBACILLUS RHAMNOSUS GG 1 CAPSULE. PO SCH (08:48)
[2017-12-30] MEDS: ASCORBIC ACID 500 MG TABLET PO SCH (08:48)
[2017-12-30] MEDS: LOPERAMIDE 2 MG CAPSULE PO PRN (08:48)
[2017-12-30] MEDS: oxyCODONE/APAP 5/325 1 TAB TABLET PO PRN (08:48)
[2017-12-30] MEDS: BRIMONIDINE 0.2% OPHTH SOLUTION 5ML BOTTLE. OD SCH (08:49)
[2017-12-30] MEDS: TIMOLOL 0.5% OPHTH SOLUTION 5ML BOTTLE. OD SCH (08:49)
[2017-12-30] MEDS: DORZOLAMIDE 2% OPHTH SOLUTION 10ML BOTTLE. OD SCH (08:49)
[2017-12-30] MEDS: BIMATOPROST OD SCH (08:49)
[2017-12-30] MEDS: MULTIVITAMIN with MINERAL TABLET. PO SCH (08:49)
--- NOTE | 2017-12-30 09:51 | PDOC ---
PROGRESS NOTES Subjective Subjective no new problems Objective Objective Vital Signs Date Time Temp Pulse Resp B/P (MAP) Pulse Ox O2 Delivery O2 Flow Rate FiO2 12/30/17 08:48 Room Air 12/30/17 07:00 98.4 94 18 150/67 (94) 95 98.4 Intake and Output 12/30/17 07:00 Intake Total 450 ml Balance 450 ml Intake Oral 400 ml IV Total 50 ml # Voids 12 # Bowel Movements 1 Physical Exam Physical Exam not in room, went to OR Abdomen: Soft, No tenderness General: Alert, Oriented X3, Cooperative, No acute distress Neck: Supple Neuro: Normal speech Psych/Mental Status: Mood NL COMMENT wound vac placed Assessment Assessment FINAL IMPRESSION: 1. Abdominal wall infection with skin necrosis, drainage and infection. 2. Recent wound dehiscence in the upper part of the incision. 3. Recent ventral hernia repair 2 months ago. 4. History of cerebrovascular accident with cognitive deficit. 5. Chronic obstructive pulmonary disease. 6. Hypertension. 7. Hypernatremia. 8. Hypokalemia. 9. Borderline DM 10.lung nodule 2 cm rt middle lobe, new finding. PLAN:spoke with ID today ?SNU today [facility]. POD#3,surgical debridement of abd wall necrotic ulcer +removal of mesh 12/27/17 PICC line placed 12/28/17 IV antibiotics for now.Zosyn+diflucan+zyvox Proteus and pseudomonas in wound c/s CT chest positive for lung nodule less than 2 cm , will do out pt work up Spoke with pts Dvt prevention with Lovenox Cr 1.3 C diff -neg. pt/ot Comment Review of Relevant I have reviewed the following items ranulfo (where applicable) has been applied. Labs Laboratory Tests Test 12/29/17 11:46 12/29/17 16:50 12/29/17 20:28 12/30/17 03:30 Glucose (Fingerstick) 101 mg/dL (70-99) 112 mg/dL (70-99) 106 mg/dL (70-99) Urine Collection Type Unknown Urine Color Yellow Urine Clarity Clear Urine pH 6.5 Urine Specific [place] 1.010 Urine Protein Negative mg/dL (NEG-TRACE) Urine Glucose (UA) Negative mg/dL (NEG) Urine Ketones (Stick) Negative mg/dL (NEG) Urine Blood Negative (NEG) Urine Nitrite Negative (NEG) Urine Bilirubin Negative (NEG) Urine Urobilinogen Dipstick 0.2 mg/dL (0.2 mg/dL) Urine Leukocyte Esterase Negative (NEG) Urine RBC 0 /HPF (0-2) Urine WBC 0 /HPF (0-4) Urine Squamous Epithelial Cells Few /LPF Urine Bacteria 0 /HPF (0-FEW) Urine Mucus Slight /LPF Microbiology 12/20/17 Blood Culture - Final, Complete NO GROWTH AFTER 5 DAYS 12/27/17 Anaerobic/Aerobic Culture, Resulted Pending 12/27/17 Anaerobic Culture Result 1 (JLUIS), Resulted Pending 12/27/17 Aerobic Culture - Preliminary, Resulted 12/27/17 Aerobic Culture Result 1 (JLUIS) - Preliminary, Resulted 12/27/17 Gram Stain - Final, Resulted 12/27/17 Gram Stain Result 1 (JLUIS) - Final, Resulted 12/27/17 Gram Stain Result 2 (JLUIS) - Final, Resulted Vitals/I & O Vital Sign - Last 24 Hours 12/29/17 12/29/17 12/29/17 12/29/17 09:55 11:00 11:48 15:00 Temp 97.9 97.7 97.9 97.7 Pulse 78 82 Resp 20 16 B/P (MAP) 150/62 (91) 152/82 (105) Pulse Ox 96 94 99 O2 Delivery Room Air Room Air Room Air Room Air 12/29/17 12/29/17 12/29/17 12/29/17 15:24 19:00 19:31 19:31 Temp 99.1 99.1 Pulse 95 Resp 16 B/P (MAP) 186/73 (110) Pulse Ox 96 O2 Delivery Room Air Room Air Room Air Room Air 12/29/17 12/29/17 12/29/17 12/30/17 19:50 21:05 23:00 01:22 Temp 98.6 98.6 Pulse 95 86 Resp 16 B/P (MAP) 186/73 119/65 (83) Pulse Ox 96 O2 Delivery Room Air Room Air Room Air 12/30/17 12/30/17 12/30/17 12/30/17 02:22 03:00 03:23 06:56 Temp 99.7 99.7 Pulse 93 93 Resp 16 B/P (MAP) 164/73 (103) 164/73 Pulse Ox 91 96 O2 Delivery Room Air Room Air Room Air 12/30/17 12/30/17 07:00 08:48 Temp 98.4 98.4 Pulse 94 Resp 18 B/P (MAP) 150/67 (94) Pulse Ox 95 O2 Delivery Room Air Room Air Intake and Output 12/29/17 12/29/17 12/30/17 15:00 23:00 07:00 Intake Total 200 ml 250 ml Balance 200 ml 250 ml CHRISTOPH LE MD Dec 30, 2017 09:51
[2017-12-30 11:00] VITALS: BP 118/61
--- NOTE | 2017-12-30 12:02 | PDOC ---
Infectious Disease Note Subjective Subjective Feels better overall Appetite fair Denies N/V/F/C/S Vital Sign Vital Signs Vital Signs Date Time Temp Pulse Resp B/P (MAP) Pulse Ox O2 Delivery O2 Flow Rate FiO2 12/30/17 11:16 Room Air 12/30/17 11:08 98 12/30/17 11:00 98.1 90 18 118/61 (80) 98.1 Physical Exam PHYSICAL EXAM GENERAL: Lying in the side of the bed, flat affect, NAD - looks better HEENT: No thrush. LUNGS: Clear bilaterally. HEART: S1, S2, no murmurs. ABDOMEN: Soft. Wound vac in place,+ BS EXTREMITIES: No edema, no cyanosis. NEUROLOGIC: Alert, oriented x 3 SKIN: warm without rash PICC RUE -clean Labs Lab Laboratory Tests Test 12/29/17 16:50 12/29/17 20:28 12/30/17 03:30 Glucose (Fingerstick) 112 mg/dL (70-99) 106 mg/dL (70-99) Urine Collection Type Unknown Urine Color Yellow Urine Clarity Clear Urine pH 6.5 Urine Specific [place] 1.010 Urine Protein Negative mg/dL (NEG-TRACE) Urine Glucose (UA) Negative mg/dL (NEG) Urine Ketones (Stick) Negative mg/dL (NEG) Urine Blood Negative (NEG) Urine Nitrite Negative (NEG) Urine Bilirubin Negative (NEG) Urine Urobilinogen Dipstick 0.2 mg/dL (0.2 mg/dL) Urine Leukocyte Esterase Negative (NEG) Urine RBC 0 /HPF (0-2) Urine WBC 0 /HPF (0-4) Urine Squamous Epithelial Cells Few /LPF Urine Bacteria 0 /HPF (0-FEW) Urine Mucus Slight /LPF Micro Microbiology 12/20/17 Blood Culture - Final, Complete NO GROWTH AFTER 5 DAYS 12/27/17 Anaerobic/Aerobic Culture, Resulted Pending 12/27/17 Anaerobic Culture Result 1 (JLUIS), Resulted Pending 12/27/17 Aerobic Culture - Preliminary, Resulted 12/27/17 Aerobic Culture Result 1 (JLUIS) - Preliminary, Resulted 12/27/17 Gram Stain - Final, Resulted 12/27/17 Gram Stain Result 1 (JLUIS) - Final, Resulted 12/27/17 Gram Stain Result 2 (JLUIS) - Final, Resulted Objective Assessment Progressive abdominal wall infection with eschar, necrosis, drainage. Proteus/ PSA. s/p Abdominal wall debridement of skin subcutaneous tissue and removal of mesh 12/27 -Failed OP p.o. antibiotics in Nov with Zyvox followed by doxycycline. CT abdomen unchanged from Nov Leukocytosis - post op and Dexamethasone 12/27 GOLDY on CKD History of hernia repair with mesh placement in 09/2017. History of wound infection with dehiscence, treated in 10/2017. Diabetes. History of subdural hematoma with mild cognitive dysfunction. History of previous exploratory laparotomy for small bowel resection, removal of mesh, ventral incisional hernia repair and debridement of abdominal wall, 08/10/2016. History of tobaccoism, quit. Status post hysterectomy. Chronic obstructive pulmonary disease. Diarrhea. C. diff neg 12/21 RUL mass on chest CT Plan Plan of Care Clinically improving since procedure Continue Zosyn, Diflucan, Zyvox Awaiting final culture results Local wound care d/c to [place] f/u with us in 2 wks D/w nursing MARIIA LAURENT MD Dec 30, 2017 12:02
--- NOTE | 2017-12-30 12:15 | PDOC ---
PULMONARY PROGRESS NOTES Subjective sob is better, Vitals Vital Signs Date Time Temp Pulse Resp B/P (MAP) Pulse Ox O2 Delivery O2 Flow Rate FiO2 12/30/17 11:16 Room Air 12/30/17 11:08 98 12/30/17 11:00 98.1 90 18 118/61 (80) 98.1 ROS: No Nausea, No Chest Pain General: Alert, Oriented X4, No acute distress HEENT: Other (nc at perrl) Lungs: Clear Cardiovascular: S1, S2 Abdomen: Soft, Other (wound dressing) Neuro Exam: Alert Extremities: No Edema Skin: Warm Labs Laboratory Tests Test 12/28/17 20:39 12/29/17 06:23 12/29/17 11:46 12/29/17 16:50 Glucose (Fingerstick) 111 mg/dL (70-99) 101 mg/dL (70-99) 112 mg/dL (70-99) White Blood Count 7.2 x10^3/uL (4.0-11.0) Red Blood Count 3.77 x10^6/uL (3.50-5.40) Hemoglobin 10.5 g/dL (12.0-15.5) Hematocrit 31.7 % (36.0-47.0) Mean Corpuscular Volume 84 fL (79-100) Mean Corpuscular Hemoglobin 28 pg (25-35) Mean Corpuscular Hemoglobin Concent 33 g/dL (31-37) Red Cell Distribution Width 16.2 % (11.5-14.5) Platelet Count 314 x10^3/uL (140-400) Neutrophils (%) (Auto) 60 % (31-73) Lymphocytes (%) (Auto) 27 % (24-48) Monocytes (%) (Auto) 8 % (0-9) Eosinophils (%) (Auto) 4 % (0-3) Basophils (%) (Auto) 1 % (0-3) Neutrophils # (Auto) 4.4 x10^3uL (1.8-7.7) Lymphocytes # (Auto) 1.9 x10^3/uL (1.0-4.8) Monocytes # (Auto) 0.6 x10^3/uL (0.0-1.1) Eosinophils # (Auto) 0.3 x10^3/uL (0.0-0.7) Basophils # (Auto) 0.0 x10^3/uL (0.0-0.2) Sodium Level 142 mmol/L (136-145) Potassium Level 4.4 mmol/L (3.5-5.1) Chloride Level 104 mmol/L (98-107) Carbon Dioxide Level 28 mmol/L (21-32) Anion Gap 10 (6-14) Blood Urea Nitrogen 18 mg/dL (7-20) Creatinine 1.3 mg/dL (0.6-1.0) Estimated GFR (Cockcroft-Gault) 41.0 Glucose Level 95 mg/dL (70-99) Calcium Level 8.9 mg/dL (8.5-10.1) Test 12/29/17 20:28 12/30/17 03:30 Glucose (Fingerstick) 106 mg/dL (70-99) Urine Collection Type Unknown Urine Color Yellow Urine Clarity Clear Urine pH 6.5 Urine Specific [place] 1.010 Urine Protein Negative mg/dL (NEG-TRACE) Urine Glucose (UA) Negative mg/dL (NEG) Urine Ketones (Stick) Negative mg/dL (NEG) Urine Blood Negative (NEG) Urine Nitrite Negative (NEG) Urine Bilirubin Negative (NEG) Urine Urobilinogen Dipstick 0.2 mg/dL (0.2 mg/dL) Urine Leukocyte Esterase Negative (NEG) Urine RBC 0 /HPF (0-2) Urine WBC 0 /HPF (0-4) Urine Squamous Epithelial Cells Few /LPF Urine Bacteria 0 /HPF (0-FEW) Urine Mucus Slight /LPF Laboratory Tests Test 12/29/17 16:50 12/29/17 20:28 12/30/17 03:30 Glucose (Fingerstick) 112 mg/dL (70-99) 106 mg/dL (70-99) Urine Collection Type Unknown Urine Color Yellow Urine Clarity Clear Urine pH 6.5 Urine Specific [place] 1.010 Urine Protein Negative mg/dL (NEG-TRACE) Urine Glucose (UA) Negative mg/dL (NEG) Urine Ketones (Stick) Negative mg/dL (NEG) Urine Blood Negative (NEG) Urine Nitrite Negative (NEG) Urine Bilirubin Negative (NEG) Urine Urobilinogen Dipstick 0.2 mg/dL (0.2 mg/dL) Urine Leukocyte Esterase Negative (NEG) Urine RBC 0 /HPF (0-2) Urine WBC 0 /HPF (0-4) Urine Squamous Epithelial Cells Few /LPF Urine Bacteria 0 /HPF (0-FEW) Urine Mucus Slight /LPF Medications Active Scripts Medications Dose Route/Sig Max Daily Dose Days Date Category Proctocream-Hc (Hydrocortisone) 30 Gm Cream..g. 1 Laly TP BID 12/21/17 Reported Gabapentin 300 Mg Capsule 300 Mg PO TID 12/21/17 Reported Anusol-Hc (Hydrocortisone Acetate) 25 Mg Supp.rect 1 Supp RC BID 12/21/17 Reported [place] 5-325 Tablet (Acetaminophen/Hydrocodone Bitart) 1 Each Tablet 1 Tab PO PRN Q6HRS PRN 12/21/17 Reported Clonidine Hcl 0.1 Mg Tablet 1 Tab PO PRN TID PRN 12/21/17 Reported Percocet 5-325 Mg Tablet (Oxycodone/Acetaminophen) 1 Each Tablet 1 Tab PO PRN Q6HRS PRN 12/16/17 Rx Zyvox (Linezolid) 600 Mg Tablet 600 Mg PO BID 14 11/15/17 Rx Azopt (Brinzolamide) 10 Ml Drops.susp 1 Drop OD BID 12/07/16 Reported Amitriptyline Hcl 10 Mg Tablet 10 Mg PO QHS 12/07/16 Reported Calcium (Calcium Carbonate) 600 Mg Tablet 600 Mg PO DAILY 12/02/16 Reported Multivitamins (Multivitamin) 1 Each Capsule 1 Each PO DAILY 12/02/16 Reported Meclizine Hcl 25 Mg Tablet 1 Tab PO PRN TID PRN 12/02/16 Reported Ventolin Hfa Inhaler (Albuterol Sulfate) 18 Gm Hfa.aer.ad 18 Gm INH PRN PRN 08/02/16 Reported Lumigan (Bimatoprost) 2.5 Ml Drops 2.5 Ml OD BID 08/02/16 Reported Combigan Eye Drops (Brimonidine Tartrate/Timolol) 5 Ml Drops 5 Ml OD BID 08/02/16 Reported Impression . IMPRESSION: 1. Abnormal CT chest revealing right upper lobe density suspicious for malignancy, vs pneumonitis ,not present in the film of 2007. 2. 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 3. Chronic obstructive pulmonary disease, unknown FEV1. 4. Tobacco dependent.suspect COPD/ could be severe 5. Progressive abdominal wall infection with recent hernia repair, status post mesh in September of 2017. 6. Diabetes. 7. History of subdural hematoma with mild cognitive dysfunction. Plan . 1. recommend working up the right upper lobe density as an outpatient with pet scan, pfts and possible fine needle aspiration or surgical intervention. fu with dr ji. Appointment given for January 10, 1.45 pm. d/ w RN and Patient/ 2. Continue current medical management. 3. s/p wound debridement 4. antibiotics per ID 5. The patient instructed on the importance of discontinuing tobacco use. 6. cont BD, ICS discussed w pt ARACELI MICHAEL MD Dec 30, 2017 12:15
--- NOTE | 2017-12-30 14:27 | PDOC ---
Subjective: Subjective: Pt is feeling well today. Her abdominal pain has improved. She had a normal BM today without diarrhea. She plans on being discharged to [facility] today. Objective: Vital Signs: Vital Signs Date Time Temp Pulse Resp B/P (MAP) Pulse Ox O2 Delivery O2 Flow Rate FiO2 12/30/17 13:57 Room Air 12/30/17 11:08 98 12/30/17 11:00 98.1 90 18 118/61 (80) 98.1 Labs: Laboratory Tests Laboratory Tests Test 12/29/17 16:50 12/29/17 20:28 12/30/17 03:30 12/30/17 07:58 Glucose (Fingerstick) 112 mg/dL 106 mg/dL 98 mg/dL Urine Collection Type Unknown Urine Color Yellow Urine Clarity Clear Urine pH 6.5 Urine Specific [place] 1.010 Urine Protein Negative mg/dL Urine Glucose (UA) Negative mg/dL Urine Ketones (Stick) Negative mg/dL Urine Blood Negative Urine Nitrite Negative Urine Bilirubin Negative Urine Urobilinogen Dipstick 0.2 mg/dL Urine Leukocyte Esterase Negative Urine RBC 0 /HPF Urine WBC 0 /HPF Urine Squamous Epithelial Cells Few /LPF Urine Bacteria 0 /HPF Urine Mucus Slight /LPF Current Medications Medications (Trade) Dose Ordered Sig/Maite Route PRN Reason Start Time Stop Time Status Last Admin Dose Admin Acetaminophen/ Hydrocodone Bitart (Lortab 5/325) 1 tab PRN Q4HRS PRN PO mild PAIN 12/20/17 17:30 12/30/17 12:43 Acetaminophen/ Hydrocodone Bitart (Lortab 5/325) 2 tab PRN Q4HRS PRN PO SEVERE PAIN 12/20/17 17:30 12/30/17 01:22 Piperacillin Sod/ Tazobactam Sod 3.375 gm/Sodium Chloride 50 ml @ 100 mls/hr Q6HRS IV 12/21/17 00:00 12/30/17 12:44 Vancomycin HCl (Vanco Per Pharmacy) 1 each DAILY PRN MC SEE COMMENTS 12/20/17 17:30 12/22/17 08:36 DC 12/21/17 15:47 Hydrocortisone (Proctosol-Hc) 1 grant PRN DAILY PRN RC PAIN 12/20/17 17:30 12/21/17 12:24 DC 12/21/17 10:42 Sodium Chloride 1,000 ml @ 75 mls/hr [id number] IV 12/20/17 17:30 12/20/17 22:27 DC 12/20/17 18:13 Labetalol HCl (Normodyne Iv Push) 20 mg PRN Q2HR PRN IVP HYPERTENSION, SEE COMMENTS 12/20/17 17:45 12/29/17 21:05 Vancomycin HCl 1.75 gm/Sodium Chloride 500 ml @ 250 mls/hr 1X ONCE IV 12/20/17 18:00 12/20/17 19:59 DC 12/20/17 18:00 Piperacillin Sod/ Tazobactam Sod 3.375 gm/Sodium Chloride 50 ml @ 100 mls/hr 1X ONCE IV 12/20/17 18:00 12/20/17 18:29 DC 12/20/17 18:17 Non-Formulary Medication (Albuterol Sulfate (Ventolin Hfa Inhaler)) 18 gm PRN PRN INH SHORTNESS OF BREATH 12/20/17 18:15 UNV Calcium Carbonate/ Glycine (Oscal) 500 mg [id number] PO 12/21/17 08:00 12/30/17 08:47 Meclizine HCl (Antivert) 25 mg PRN TID PRN PO DIZZINESS 12/20/17 18:15 12/30/17 08:48 Multivitamins (Thera M Plus) 1 tab DAILY PO 12/21/17 09:00 12/30/17 08:49 Albuterol Sulfate (Ventolin Neb Soln) 2.5 mg PRN Q6HRS PRN NEB SHORTNESS OF BREATH 12/20/17 18:15 12/24/17 20:14 Influenza Virus Vaccine (Afluria Trivalent [id number] Syringe) 0.5 ml ONCE ONCE VAX IM 12/21/17 09:00 12/23/17 11:20 DC Vancomycin HCl 1.5 gm/Sodium Chloride 500 ml @ 250 mls/hr Q24H IV 12/21/17 18:00 12/22/17 08:36 DC 12/21/17 20:52 Vancomycin HCl (Vancomycin Trough Level) 1 each 1X ONCE MC 12/22/17 20:30 12/22/17 20:30 DC Amitriptyline HCl (Elavil) 10 mg QHS PO 12/21/17 21:00 12/29/17 21:04 Oxycodone/ Acetaminophen (Percocet 5/325) 1 tab PRN Q6HRS PRN PO MODERATE PAIN 12/20/17 22:30 12/30/17 08:48 Non-Formulary Medication (Bimatoprost (Lumigan)) 1 DROP BID OD 12/21/17 09:00 12/30/17 08:49 Non-Formulary Medication (Brimonidine Tartrate/Timolol (Combigan Eye Drops)) 1 DROP BID OD 12/21/17 09:00 12/23/17 08:25 DC 12/22/17 21:00 Non-Formulary Medication (Brinzolamide (Azopt)) 1 drop BID OD 12/21/17 09:00 12/23/17 11:16 DC 12/23/17 08:09 Potassium Chloride/Dextrose/ Sod Cl 1,000 ml @ 75 mls/hr [id number] IV 12/20/17 22:30 12/29/17 09:15 DC 12/29/17 06:49 Potassium Chloride (Klor-Con) 40 meq 1X ONCE PO 12/20/17 22:30 12/20/17 22:31 DC 12/21/17 00:33 Brimonidine Tartrate (Alphagan) 1 drop BID OD 12/21/17 21:00 Cancel Timolol Maleate (Timoptic 0.5% Ophth) 1 drop BID OD 12/21/17 21:00 Cancel Insulin Human Lispro (HumaLOG) 0-5 UNITS TIDWMEALS SQ 12/21/17 12:00 Dextrose (Dextrose 50%-Water Syringe) 12.5 gm PRN Q15MIN PRN IV SEE COMMENTS 12/21/17 10:00 Fluconazole (Diflucan) 100 mg DAILY PO 12/21/17 13:00 12/30/17 08:47 Hydrocortisone (Proctosol-Hc) 1 grant PRN QID PRN RC PAIN 12/21/17 12:30 12/26/17 15:15 Ascorbic Acid (Vitamin C) 500 mg BID PO 12/21/17 13:00 12/30/17 08:48 Hydrocortisone (Proctosol-Hc) 1 grant PRN TID PRN RC PAIN 12/21/17 12:30 UNV Lactobacillus Rhamnosus (Culturelle) 1 cap BID PO 12/21/17 21:00 12/30/17 08:48 Linezolid (Zyvox) 600 mg BID PO 12/22/17 09:00 12/30/17 08:47 Collagenase (Santyl) 1 grant DAILY TP 12/22/17 13:00 12/26/17 08:51 Iohexol (Omnipaque 240 Mg/ml) 30 ml 1X ONCE PO 12/22/17 14:00 12/22/17 14:01 DC 12/22/17 14:00 Info (CONTRAST GIVEN -- Rx MONITORING) 1 each PRN DAILY PRN MC SEE COMMENTS 12/22/17 14:15 12/24/17 14:14 DC Vitamin A/Vitamin D (Vitamin A & D Ointment) 1 grant PRN BID PRN TP SKIN PROTECTION 12/22/17 15:30 Timolol Maleate (Timoptic 0.5% Ophth) 1 drop BID OD 12/23/17 09:00 12/30/17 08:49 Brimonidine Tartrate (Alphagan) 1 drop BID OD 12/23/17 09:00 12/30/17 08:49 Potassium Chloride (Klor-Con) 20 meq 1X ONCE PO 12/23/17 09:15 12/23/17 09:26 DC 12/23/17 10:11 Dorzolamide HCl (Trusopt) 1 drop BID OU 12/23/17 12:00 12/26/17 15:53 DC 12/26/17 08:29 Loperamide HCl (Imodium) 2 mg TID PRN PO DIARRHEA 12/23/17 11:45 12/30/17 08:48 Ondansetron HCl (Zofran) 4 mg PRN Q6HRS PRN IV MILD NAUSEA/VOMITING 12/24/17 06:30 12/24/17 06:37 Ondansetron HCl (Zofran) 8 mg PRN Q6HRS PRN IV SEVERE NAUSEA/VOMITING 12/24/17 06:30 Albuterol/ Ipratropium (Duoneb) 3 ml RTQID NEB 12/24/17 12:00 12/30/17 11:16 Budesonide (Pulmicort) 0.5 mg RTBID NEB 12/24/17 20:00 12/30/17 06:55 Budesonide (Pulmicort) 0.5 mg 1X ONCE NEB 12/24/17 11:00 12/24/17 11:02 DC 12/24/17 11:50 Dorzolamide HCl (Trusopt) 1 drop BID OD 12/26/17 21:00 12/30/17 08:49 Ondansetron HCl (Zofran) 4 mg PRN Q6HRS PRN IV NAUSEA/VOMITING 12/27/17 07:00 12/28/17 06:59 DC Fentanyl Citrate (Fentanyl 2ml Vial) 25 mcg PRN Q5MIN PRN IV MILD PAIN 12/27/17 07:00 12/28/17 06:59 DC Fentanyl Citrate (Fentanyl 2ml Vial) 50 mcg PRN Q5MIN PRN IV MODERATE TO SEVERE PAIN 12/27/17 07:00 12/28/17 06:59 DC Morphine Sulfate (Morphine Sulfate) 1 mg PRN Q10MIN PRN IV SEVERE PAIN 12/27/17 07:00 12/28/17 06:59 DC Ringer's Solution 1,000 ml @ 30 mls/hr Q24H IV 12/27/17 07:00 12/27/17 18:59 DC 12/27/17 08:17 Lidocaine HCl (Xylocaine-Mpf 1% 2ml Vial) 2 ml PRN 1X PRN ID PRIOR TO IV START 12/27/17 07:00 12/28/17 06:59 DC Hydromorphone HCl (Dilaudid) 0.5 mg PRN Q10MIN PRN IV SEV PAIN, Second choice 12/27/17 07:00 12/28/17 06:59 DC Prochlorperazine Edisylate (Compazine) 5 mg PACU PRN PRN IV NAUSEA, MRX1 12/27/17 07:00 12/28/17 06:59 DC Bupivacaine HCl/ Epinephrine Bitart (Sensorcain-Mpf Epi 0.5%-1:[id number]) 30 ml STK-MED ONCE .ROUTE 12/27/17 05:59 12/27/17 07:00 DC Lidocaine HCl (Lidocaine Pf 2% Vial) 5 ml STK-MED ONCE .ROUTE 12/27/17 08:40 12/27/17 08:41 DC Propofol 20 ml @ As Directed STK-MED ONCE IV 12/27/17 09:37 12/27/17 09:38 DC Dexamethasone Sodium Phosphate (Decadron) 20 mg STK-MED ONCE .ROUTE 12/27/17 09:37 12/27/17 09:38 DC Ondansetron HCl (Zofran) 4 mg STK-MED ONCE .ROUTE 12/27/17 09:37 12/27/17 09:38 DC Fentanyl Citrate (Fentanyl 2ml Vial) 100 mcg STK-MED ONCE .ROUTE 12/27/17 09:37 12/27/17 09:38 DC Sevoflurane (Ultane) 60 ml STK-MED ONCE IH 12/27/17 09:37 12/27/17 09:38 DC Enoxaparin Sodium (Lovenox 40mg Syringe) 40 mg DAILY SQ 12/27/17 09:45 12/30/17 08:47 Sodium Chloride (Normal Saline Flush) 3 ml QSHIFT PRN IV AFTER MEDS AND BLOOD DRAWS 12/27/17 09:45 Propofol 20 ml @ As Directed STK-MED ONCE IV 12/27/17 08:11 12/28/17 18:52 DC Rocuronium Lefor (Zemuron) 50 mg STK-MED ONCE .ROUTE 12/27/17 08:11 12/28/17 18:52 DC Fentanyl Citrate (Fentanyl 2ml Vial) 100 mcg STK-MED ONCE .ROUTE 12/27/17 08:12 12/28/17 18:52 DC Hydralazine HCl (Apresoline) 10 mg PRN TID PRN PO HYPERTENSION, SEE COMMENTS 12/29/17 09:30 12/30/17 03:23 PE: GEN: NAD LUNGS: CTAB HEART: RRR, no murmurs ABD: NABS, abdominal dressing in place EXTREMITY: No edema NEURO/PSYCH: A & O 3 A/P: S/p abd wall debridement and removal of mesh Diarrhea - now resolved Abdominal pain has improved Pt plan for discharge to [facility] today -- Improved post-op. Can continue Imodium PRN or try Colestid if indicated. ABIMBOLA ROBLERO Dec 30, 2017 14:27
[2017-12-30 15:00] VITALS: BP 118/61
--- NOTE | 2018-01-02 22:13 | PDOC ---
Provider Note Provider Note Discharge summary dictated. #[id number] CHRISTOPH LE MD Jan 02, 2018 22:13
--- NOTE | 2018-01-03 02:22 | DS ---
DATE OF DISCHARGE: 12/30/2017 REASON FOR ADMISSION TO THE HOSPITAL: Infected abdominal mesh as well as skin necrosis with ulceration, wound dehiscence. CONSULTATIONS: Dr. Strong, Dr. Wang, and Dr. Hooper. PROCEDURES DONE: 1. CT chest. 2. CT of the abdomen and pelvis. 3. Abdominal wall debridement of the skin, subcutaneous tissue and removal of mesh. HOSPITAL COURSE: The patient is a 67-year-old female. The patient had recurrent ventral hernia. She had abdominal surgery, hernia repair, and placement of a mesh 2 months ago. The patient had an infection with cellulitis of the abdominal wall a month ago, was treated with IV as well as oral antibiotics. She has developed wound dehiscence. There is small ulceration 1 inch in size in the upper part of incision, but over the course of a couple of days prior to the admission, the patient developed a new area of necrosis and ulceration of the lower part of the incision with infection and pus. The patient was admitted to the hospital, was given IV antibiotics. Wound culture shows Proteus and Pseudomonas, was treated with IV Zosyn, p.o. Zyvox and Diflucan. The patient had a CT scan of the abdomen and pelvis. No extension of the abscess inside the abdominal cavity. The patient had a CT chest, was found to have a nodule right upper lobe which is 1.6 x 1.2 cm. The patient has a long smoking history, seen by Pulmonology and the plan is to get a PET scan, bronchoscopy, a CT-guided needle aspiration when the patient's condition is stable after the infection has cleared up in the abdominal wall. She is scheduled to follow with Pulmonology in 2 weeks after discharge. So the patient was seen by Surgery because of the infected mesh. The patient underwent surgery on 12/27/2017. She had an abdominal wall debridement, removal of the mesh and the patient had a wound VAC placed. The patient had a PICC line placed and she was doing relatively well and it was felt that she needs long-term IV antibiotics, was discharged to [facility] with wound VAC, IV antibiotics and followup. FINAL DIAGNOSES: 1. Infected abdominal wall mesh, which was removed. 2. Skin necrosis with ulceration with Proteus and Pseudomonas. 3. New lung lesion, right upper lung, which is 1.6 cm. Needs a PET scan, CT scan guided needle biopsy or bronchoscopy, which is scheduled in 4-6 weeks after infection has cleared up. 4. Hypertension. 5. History of cerebrovascular accident, history of brain aneurysm, had surgery done for that. 6. Cognitive function. 7. Mild renal insufficiency, stage 2. 8. Borderline diabetes. 9. Chronic smoker. DISPOSITION: [facility]. See [facility] for discharge medications. Scheduled for further workup for the lung mass in 4-6 weeks. CHRISTOPH LE MD DR: PURVI/nts JOB#: [id number] / [id number]
== END 2017-12-30 15:00 | DRG 901 ==
LOC: 4 NORTH 16:17
PROVIDERS: ADMIT Internal Medicine; ATTEND Internal Medicine
PROC: 0WPF0JZ Removal of Synthetic Substitute from Abdominal Wall, Open Approach (ICD-10-PCS; 2017-12-27)
PROC: 0JB80ZZ Excision of Abdomen Subcutaneous Tissue and Fascia, Open Approach (ICD-10-PCS; principal; 2017-12-27 09:00)
PROC: 05HY33Z Insertion of Infusion Device into Upper Vein, Percutaneous Approach (ICD-10-PCS; 2017-12-28)
DX: T85.79XA Infection and inflammatory reaction due to other internal prosthetic devices, implants and grafts, initial encounter (principal); N17.0 Acute kidney failure with tubular necrosis; E87.0 Hyperosmolality and hypernatremia; T81.30XA Disruption of wound, unspecified, initial encounter; I96 Gangrene, not elsewhere classified; I10 Essential (primary) hypertension; E86.0 Dehydration; M19.90 Unspecified osteoarthritis, unspecified site; E11.22 Type 2 diabetes mellitus with diabetic chronic kidney disease; F02.80 Dementia in other diseases classified elsewhere, unspecified severity, without behavioral disturbance, psychotic disturbance, mood disturbance, and anxiety; E87.6 Hypokalemia; K76.0 Fatty (change of) liver, not elsewhere classified; F17.210 Nicotine dependence, cigarettes, uncomplicated; I12.9 Hypertensive chronic kidney disease with stage 1 through stage 4 chronic kidney disease, or unspecified chronic kidney disease; J44.9 Chronic obstructive pulmonary disease, unspecified; E11.9 Type 2 diabetes mellitus without complications; K21.9 Gastro-esophageal reflux disease without esophagitis; K64.8 Other hemorrhoids; N18.9 Chronic kidney disease, unspecified; Y83.2 Surgical operation with anastomosis, bypass or graft as the cause of abnormal reaction of the patient, or of later complication, without mention of misadventure at the time of the procedure; Z90.49 Acquired absence of other specified parts of digestive tract; Z90.710 Acquired absence of both cervix and uterus; Y92.89 Other specified places as the place of occurrence of the external cause; Z86.73 Personal history of transient ischemic attack (TIA), and cerebral infarction without residual deficits; Z82.49 Family history of ischemic heart disease and other diseases of the circulatory system; Z79.899 Other long term (current) drug therapy
CPT/HCPCS: 36415; 36569; 71046; 71250; 74176; 80048; 80053; 81001; 82962; 83605; 85025; 87040; 87071; 87075; 87186; 87324; 88302; 88304; 93005; 94640; 94760; J0775; J1100; J1650; J1815; J2001; J2405; J2543; J2704; J3010; J3370; J3490; J7030; J7040; J7120; J7613; J7620; J7626; J8597; Q9966; 97530

== ENCOUNTER 2018-01-08 15:13 | Emergency (ER) | payer OTHER, MEDICARE ==
[~2018-01-08] VITALS: Ht 162.6 cm; Wt 108.0 kg
[~2018-01-08 15:13] MED LIST changes: +CLON0.1T PO; +ENOX40DI3 SQ; +Fluconazole PO; +GABA-586 PO; +HYDR-971 PO; +HYDR25SU18 RC; +HYDR30CR70 TP; +PIPE3.377 IV
--- NOTE | 2018-01-08 15:36 | PHYS DOC ---
Past Medical History Past Medical History: Diabetes-Type II Additional Past Medical Histor: subdural hematoma Past Surgical History: Hysterectomy, Other Additional Past Surgical Histo: subdural hematoma, hernia repair Alcohol Use: None Drug Use: None Adult General Chief Complaint Chief Complaint: LOWER EXT PAIN [facility] HPI Patient is a 67 year old female who presents with right lower extremity swelling. The patient was sent to the emergency department for evaluation of a DVT. She had a hernia repair and a wound dehiscence. She is at a nursing facility currently being treated with a wound VAC. The staff noticed today that she did have swelling to that right lower extremity and felt like it needed further examination. The patient denies chest pain, shortness of breath or fever. Review of Systems Review of Systems Constitutional: Denies fever or chills [] Respiratory: Denies cough or shortness of breath [] Cardiovascular: No additional information not addressed in [facility] [] GI: Denies abdominal pain, nausea, vomiting, bloody stools or diarrhea [] : Denies dysuria or hematuria [] Musculoskeletal: See history of present illness Integument: Denies rash or skin lesions [] Neurologic: Denies headache, focal weakness or sensory changes [] Endocrine: Denies polyuria or polydipsia [] All other systems were reviewed and found to be within normal limits, except as documented in this note. Allergies Allergies Allergies Coded Allergies Type Severity Reaction Last Updated Verified I S O L A T I O N *CONTACT* Allergy Unknown 11/15/17 Yes No Known Medication Allergies Allergy Unknown 11/15/17 Yes Physical Exam Physical Exam Constitutional: Well developed, well nourished, no acute distress, non-toxic appearance. [] Cardiovascular:Heart rate regular rhythm, no murmur [] Lungs & Thorax: Bilateral breath sounds clear to auscultation [] Abdomen: Bowel sounds normal, soft, no tenderness, no masses, no pulsatile masses. [] Skin: Warm, dry, no erythema, no rash. [] Back: No tenderness, no CVA tenderness. [] Extremities: No tenderness, no cyanosis, no clubbing, ROM intact, 2+ pitting edema to right lower extremity up to mid park, no edema noted to left lower extremity, ulcers and sensation are intact bilaterally. [] Neurologic: Alert and oriented X 3, normal motor function, normal sensory function, no focal deficits noted. [] Psychologic: Affect normal, judgement normal, mood normal. [] Current Patient Data Vital Signs Vital Signs Date Time Temp Pulse Resp B/P (MAP) Pulse Ox O2 Delivery O2 Flow Rate FiO2 01/08/18 17:01 96 16 168/81 (110) 95 01/08/18 16:20 Room Air 01/08/18 15:25 98.4 98.4 Lab Values Laboratory Tests Test 01/08/18 15:47 01/08/18 16:06 White Blood Count 5.1 x10^3/uL (4.0-11.0) Red Blood Count 3.36 x10^6/uL (3.50-5.40) L Hemoglobin 9.2 g/dL (12.0-15.5) L Hematocrit 28.0 % (36.0-47.0) L Mean Corpuscular Volume 83 fL (79-100) Mean Corpuscular Hemoglobin 27 pg (25-35) Mean Corpuscular Hemoglobin Concent 33 g/dL (31-37) Red Cell Distribution Width 15.5 % (11.5-14.5) H Platelet Count 141 x10^3/uL (140-400) Neutrophils (%) (Auto) 55 % (31-73) Lymphocytes (%) (Auto) 24 % (24-48) Monocytes (%) (Auto) 16 % (0-9) H Eosinophils (%) (Auto) 4 % (0-3) H Basophils (%) (Auto) 0 % (0-3) Neutrophils # (Auto) 2.8 x10^3uL (1.8-7.7) Lymphocytes # (Auto) 1.2 x10^3/uL (1.0-4.8) Monocytes # (Auto) 0.8 x10^3/uL (0.0-1.1) Eosinophils # (Auto) 0.2 x10^3/uL (0.0-0.7) Basophils # (Auto) 0.0 x10^3/uL (0.0-0.2) Sodium Level 151 mmol/L (136-145) H Potassium Level 3.8 mmol/L (3.5-5.1) Chloride Level 113 mmol/L (98-107) H Carbon Dioxide Level 28 mmol/L (21-32) Anion Gap 10 (6-14) Blood Urea Nitrogen 19 mg/dL (7-20) Creatinine 1.4 mg/dL (0.6-1.0) H Estimated GFR (Cockcroft-Gault) 37.6 BUN/Creatinine Ratio 14 (6-20) Glucose Level 107 mg/dL (70-99) H Calcium Level 8.7 mg/dL (8.5-10.1) Total Bilirubin 0.5 mg/dL (0.2-1.0) Aspartate Amino Transferase (AST) 19 U/L (15-37) Alanine Aminotransferase (ALT) 38 U/L (14-59) Alkaline Phosphatase 115 U/L (46-116) Total Protein 6.8 g/dL (6.4-8.2) Albumin 2.7 g/dL (3.4-5.0) L Albumin/Globulin Ratio 0.7 (1.0-1.7) L Urine Collection Type Unknown Urine Color Yellow Urine Clarity Clear Urine pH 6.5 Urine Specific [place] 1.015 Urine Protein Negative mg/dL (NEG-TRACE) Urine Glucose (UA) Negative mg/dL (NEG) Urine Ketones (Stick) Negative mg/dL (NEG) Urine Blood Negative (NEG) Urine Nitrite Negative (NEG) Urine Bilirubin Negative (NEG) Urine Urobilinogen Dipstick 0.2 mg/dL (0.2 mg/dL) Urine Leukocyte Esterase Negative (NEG) Urine RBC Occ /HPF (0-2) Urine WBC Occ /HPF (0-4) Urine Squamous Epithelial Cells Mod /LPF Urine Bacteria 0 /HPF (0-FEW) Urine Hyaline Casts Occasional /HPF Urine Mucus Slight /LPF Urine Yeast Present /HPF Laboratory Tests 01/08/18 15:47 Laboratory Tests 01/08/18 15:47 EKG EKG [] Radiology/Procedures Radiology/Procedures []PATIENT: KAMLESH BATISTACOUNT: [id number]#: [id number] : 1950 LOCATION: ER AGE: 67 SEX: F EXAM STATUS: PRE ER ORD. PHYSICIAN: LINDA VALLE APRN REASON: right leg pain and swelling, postop PROCEDURE: VENOUS LOWER EXTREMITY RIGHT Examination: VENOUS LOWER EXTREMITY RIGHT History: Pain and swelling Comparison/Correlation: None Findings: Right lower extremity venous duplex ultrasound exam was performed. Grayscale, color Doppler, and spectral Doppler imaging was performed. Compression and augmentation utilized. The right common femoral vein, superficial femoral vein, greater saphenous vein, popliteal vein, and posterior tibial/peroneal veins are normal with no thrombus identified. Normal phasicity and flow. Impression: No right lower extremity deep venous thrombus. Electronically signed by: Pb Silver MD (01/08/2018 4:18 PM) [facility] DICTATED and SIGNED BY: PB SILVER MD DATE: 01/08/18 1615 Course & Med Decision Making Course & Med Decision Making Pertinent Labs and Imaging studies reviewed. (See chart for details) []The patient is being discharged back to [facility] for further treatment. She was found to have hyponatremia in the emergency department. Her nurse at [facility] has been advised so that she may receive treatment for this in the facility. This was found to be a chronic condition for her. Dragon Disclaimer Dragon Disclaimer This electronic medical record was generated, in whole or in part, using a voice recognition dictation system. Departure Departure Impression: Primary Impression: Edema of lower extremity Additional Impression: Hypernatremia Disposition: 01 HOME, SELF-CARE Condition: STABLE Referrals: CHRISTOPH LE MD (PCP) Patient Instructions: Hypernatremia, Peripheral Edema Additional Instructions: Continue your current at-home medications and treatment. If worsening return to the emergency department. Problem Qualifiers LINDA VALLE APRN Jan 08, 2018 15:36
[2018-01-08 15:58] LABS: BASO % 0 % (0-3); EOS # 0.2 x10^3/uL (0.0-0.7); EOS % 4 % (0-3); HEMOGLOBIN 9.2 g/dL (12.0-15.5); LYMPH # 1.2 x10^3/uL (1.0-4.8); LYMPH % 24 % (24-48); MEAN CORPUSCULAR HEMOGLOBIN 27 pg (25-35); MEAN CORPUSCULAR HGB CONC 33 g/dL (31-37); MEAN CORPUSCULAR VOLUME 83 fL (79-100); MONO # 0.8 x10^3/uL (0.0-1.1); MONO % 16 % (0-9); NEUT # 2.8 x10^3uL (1.8-7.7); NEUT % 55 % (31-73); PLATELET COUNT 141 x10^3/uL (140-400); RED BLOOD COUNT 3.36 x10^6/uL (3.50-5.40); RED CELL DISTRIBUTION WIDTH 15.5 % (11.5-14.5); WHITE BLOOD COUNT 5.1 x10^3/uL (4.0-11.0)
[2018-01-08 16:00] LABS: CALCIUM 8.7 mg/dL (8.5-10.1); CREATININE 1.4 mg/dL (0.6-1.0); GFR 37.6; POTASSIUM 3.8 mmol/L (3.5-5.1)
[2018-01-08 16:07] LABS: ALBUMIN 2.7 g/dL (3.4-5.0); ALBUMIN/GLOBULIN RATIO 0.7 (1.0-1.7); TOTAL BILIRUBIN 0.5 mg/dL (0.2-1.0); TOTAL PROTEIN 6.8 g/dL (6.4-8.2)
[2018-01-08 16:14] LABS: BILIRUBIN,URINE NEGATIVE (NEG); CLARITY,URINE CLEAR; COLOR,URINE YELLOW; NITRITE,URINE NEGATIVE (NEG); PH,URINE 6.5; PROTEIN,URINE NEGATIVE (NEG-TRACE); UROBILINOGEN,URINE 0.2 mg/dL (0.2 mg/dL)
--- NOTE | 2018-01-08 16:21 | RAD ---
Examination: VENOUS LOWER EXTREMITY RIGHT History: Pain and swelling Comparison/Correlation: None Findings: Right lower extremity venous duplex ultrasound exam was performed. Grayscale, color Doppler, and spectral Doppler imaging was performed. Compression and augmentation utilized. The right common femoral vein, superficial femoral vein, greater saphenous vein, popliteal vein, and posterior tibial/peroneal veins are normal with no thrombus identified. Normal phasicity and flow. Impression: No right lower extremity deep venous thrombus. Electronically signed by: Pb Chi MD (01/08/2018 4:18 PM) [facility]
[2018-01-08 16:37] LABS: SQUAMOUS EPITHELIAL CELL,UR MOD /LPF
[2018-01-08 16:38] LABS: HYALINE CASTS, URINE OCCASIONAL /HPF
[2018-01-08 16:39] LABS: BACTERIA,URINE 0 /HPF (0-FEW); RBC,URINE OCC /HPF (0-2); WBC,URINE OCC /HPF (0-4); YEAST,URINE PRESENT /HPF
[2018-01-08 17:01] VITALS: BP 168/81
== END 2018-01-08 18:28 | disposition home or self-care (01) ==
LOC: ER 15:13
DX: R60.0 Localized edema (principal); M79.89 Other specified soft tissue disorders; E87.0 Hyperosmolality and hypernatremia; E11.9 Type 2 diabetes mellitus without complications; Z90.710 Acquired absence of both cervix and uterus; Z91.041 Radiographic dye allergy status
CPT/HCPCS: 36415; 80053; 81001; 85025; 93971; 99285-25

== ENCOUNTER → 2018-01-23 | Outpatient (CLI) | payer OTHER, MEDICARE ==
[2018-01-08 17:01] VITALS: BP 168/81
== END | disposition home or self-care (01) ==
LOC: PMGWOUND 10:01
PROVIDERS: ATTEND Emergency Medicine Undersea and Hyperbaric Medicine
DX: T81.31XD Disruption of external operation (surgical) wound, not elsewhere classified, subsequent encounter (principal); I12.9 Hypertensive chronic kidney disease with stage 1 through stage 4 chronic kidney disease, or unspecified chronic kidney disease; E11.22 Type 2 diabetes mellitus with diabetic chronic kidney disease; N18.9 Chronic kidney disease, unspecified; E11.52 Type 2 diabetes mellitus with diabetic peripheral angiopathy with gangrene; I96 Gangrene, not elsewhere classified; G47.33 Obstructive sleep apnea (adult) (pediatric); M19.90 Unspecified osteoarthritis, unspecified site; F17.210 Nicotine dependence, cigarettes, uncomplicated; J44.9 Chronic obstructive pulmonary disease, unspecified; K21.9 Gastro-esophageal reflux disease without esophagitis; E66.9 Obesity, unspecified; Z68.41 Body mass index [BMI] 40.0-44.9, adult; Z86.73 Personal history of transient ischemic attack (TIA), and cerebral infarction without residual deficits; Z90.710 Acquired absence of both cervix and uterus; Z90.49 Acquired absence of other specified parts of digestive tract; Y83.8 Other surgical procedures as the cause of abnormal reaction of the patient, or of later complication, without mention of misadventure at the time of the procedure
CPT/HCPCS: 97605

== ENCOUNTER → 2018-01-30 | Outpatient (CLI) | payer OTHER, MEDICARE ==
[2018-01-08 17:01] VITALS: BP 168/81
[~2018-01-30] MED LIST changes: +HYDR-3164 PO; -HYDR-971 PO
== END | disposition home or self-care (01) ==
LOC: PMGWOUND 10:00
PROVIDERS: ATTEND Emergency Medicine Undersea and Hyperbaric Medicine
DX: T81.31XD Disruption of external operation (surgical) wound, not elsewhere classified, subsequent encounter (principal); E11.52 Type 2 diabetes mellitus with diabetic peripheral angiopathy with gangrene; I96 Gangrene, not elsewhere classified; I13.0 Hypertensive heart and chronic kidney disease with heart failure and stage 1 through stage 4 chronic kidney disease, or unspecified chronic kidney disease; E11.22 Type 2 diabetes mellitus with diabetic chronic kidney disease; N18.9 Chronic kidney disease, unspecified; I50.9 Heart failure, unspecified; J44.9 Chronic obstructive pulmonary disease, unspecified; K21.9 Gastro-esophageal reflux disease without esophagitis; F17.210 Nicotine dependence, cigarettes, uncomplicated; G47.33 Obstructive sleep apnea (adult) (pediatric); E66.9 Obesity, unspecified; Z68.41 Body mass index [BMI] 40.0-44.9, adult; Z86.73 Personal history of transient ischemic attack (TIA), and cerebral infarction without residual deficits; Z90.710 Acquired absence of both cervix and uterus; Z90.49 Acquired absence of other specified parts of digestive tract; Y83.8 Other surgical procedures as the cause of abnormal reaction of the patient, or of later complication, without mention of misadventure at the time of the procedure
CPT/HCPCS: 97597; 97598

== ENCOUNTER → 2018-02-06 | Outpatient (CLI) | payer OTHER, MEDICARE ==
[2018-01-08 17:01] VITALS: BP 168/81
[~2018-02-06] MED LIST changes: -OXYC-323 PO; +OXYC1TAB15 PO
== END | disposition home or self-care (01) ==
LOC: PMGWOUND 09:54
PROVIDERS: ATTEND Emergency Medicine Undersea and Hyperbaric Medicine
DX: T81.31XD Disruption of external operation (surgical) wound, not elsewhere classified, subsequent encounter (principal); E11.52 Type 2 diabetes mellitus with diabetic peripheral angiopathy with gangrene; I96 Gangrene, not elsewhere classified; I13.0 Hypertensive heart and chronic kidney disease with heart failure and stage 1 through stage 4 chronic kidney disease, or unspecified chronic kidney disease; E11.22 Type 2 diabetes mellitus with diabetic chronic kidney disease; N18.9 Chronic kidney disease, unspecified; I50.9 Heart failure, unspecified; J44.9 Chronic obstructive pulmonary disease, unspecified; G47.33 Obstructive sleep apnea (adult) (pediatric); F17.210 Nicotine dependence, cigarettes, uncomplicated; K21.9 Gastro-esophageal reflux disease without esophagitis; M19.90 Unspecified osteoarthritis, unspecified site; E66.9 Obesity, unspecified; Z68.41 Body mass index [BMI] 40.0-44.9, adult; Z86.73 Personal history of transient ischemic attack (TIA), and cerebral infarction without residual deficits; Z90.710 Acquired absence of both cervix and uterus; Z90.49 Acquired absence of other specified parts of digestive tract; Y83.8 Other surgical procedures as the cause of abnormal reaction of the patient, or of later complication, without mention of misadventure at the time of the procedure
CPT/HCPCS: 97597

== ENCOUNTER 2018-02-08 11:31 | Emergency (ER) | payer OTHER, MEDICARE ==
[~2018-02-08] VITALS: Ht 162.6 cm; Wt 108.0 kg
[2018-02-08] MEDS ORDERED: IV NORMAL SALINE 1000ML BAG 1,000 ML IV SCH (12:41)
[2018-02-08] MEDS ORDERED: ONDANSETRON PF 4 MG/2 ML VIAL. IV ONE (12:45)
[2018-02-08] MEDS ORDERED: MORPHINE SULFATE 4 MG/ML VIAL. IV/SQ PRN (12:45)
--- NOTE | 2018-02-08 12:49 | PHYS DOC ---
Past Medical History Past Medical History: Diabetes-Type II Additional Past Medical Histor: subdural hematoma Past Surgical History: Appendectomy, Cholecystectomy, Hysterectomy, Other Additional Past Surgical Histo: subdural hematoma, hernia repair Alcohol Use: None Drug Use: None Adult General Chief Complaint Chief Complaint: ABDOMINAL PAIN HPI HPI Patient is a 67-year-old female who presents to the emergency department for evaluation. She states that last night she developed right-sided abdominal pain , from her right back radiating towards her right lower abdomen. She has not had any nausea or vomiting. She denies any hematuria or dysuria, or urinary frequency. She has not had any fevers or chills, numbness or weakness. She has not had similar pain in the past. She is being treated with a wound VAC, which has been applied for over a month of her anterior abdominal wall, at the site of a ventral hernia wound infection, but she states the pain is more to the right side of this. There are no alleviating, or exacerbating factors to the patient's symptoms, except that movement seems to worsen the patient's pain, as does palpation of the affected areas. Review of Systems Review of Systems Constitutional: Denies fever or chills [] Eyes: Denies change in visual acuity, redness, or eye pain [] HENT: Denies nasal congestion or sore throat [] Respiratory: Denies cough or shortness of breath [] Cardiovascular: The patient denies any shortness of breath, chest pain, palpitations, or orthopnea [] GI: Denies nausea, vomiting, bloody stools or diarrhea [] : Denies dysuria or hematuria [] Musculoskeletal: Denies back pain or joint pain [] Integument: Denies rash or skin lesions [] Neurologic: Denies headache, focal weakness or sensory changes [] Endocrine: Denies polyuria or polydipsia [] All other systems were reviewed and found to be within normal limits, except as documented in this note. Current Medications Current Medications Current Medications Medications (Trade) Dose Ordered Sig/Maite Start Time Stop Time Status Last Admin Dose Admin Info (CONTRAST GIVEN -- Rx MONITORING) 1 each PRN DAILY PRN 02/08/18 14:00 02/10/18 13:59 Iohexol (Omnipaque 300 Mg/ml) 60 ml 1X ONCE 02/08/18 14:00 02/08/18 14:01 DC 02/08/18 14:15 60 ML Morphine Sulfate (Morphine Sulfate) 4 mg PRN Q15MIN PRN 02/08/18 12:45 02/09/18 12:44 02/08/18 13:17 4 MG Ondansetron HCl (Zofran) 4 mg 1X ONCE 02/08/18 12:45 02/08/18 12:46 DC 02/08/18 13:17 4 MG Sodium Chloride 1,000 ml @ 1,000 mls/hr 1X ONCE 02/08/18 14:30 02/08/18 15:29 DC 02/08/18 15:41 1,000 MLS/HR Allergies Allergies Allergies Coded Allergies Type Severity Reaction Last Updated Verified I S O L A T I O N *CONTACT* Allergy Unknown 11/15/17 Yes No Known Medication Allergies Allergy Unknown 11/15/17 Yes Physical Exam Physical Exam PHYSICAL EXAM: CONSTITUTIONAL: Well developed, well nourished HEAD: normocephalic, atraumatic EENT: PERRL, EOMI. Conjunctivae normal color, sclerae non-icteric; moist mucous membranes. NECK: Supple, non-tender; no meningismus. LUNGS: Lungs CTA, breathing even and unlabored. Normal air movement. HEART: Regular rate and rhythm, no murmur CHEST: No deformity; non-tender ABDOMEN: The abdomen is soft, there is diffuse tenderness to palpation to the right mid and lower abdomen, without rebound or guarding, normal bowel sounds are present. There is a wound VAC wasn't on the anterior abdominal wall. The remainder the abdomen is soft and relatively non-tender, no masses or bruits. EXTREM: Normal ROM; no deformity, no calf tenderness. Normal pulses palpable in all extremities. There is no pedal edema. SKIN: No rash; no diaphoresis NEURO: Alert; normal speech and cognition; CN's grossly intact; strength grossly intact without focal deficit. BACK: There is moderate right-sided CVA TTP. Current Patient Data Vital Signs Vital Signs Date Time Temp Pulse Resp B/P (MAP) Pulse Ox O2 Delivery O2 Flow Rate FiO2 02/08/18 13:30 82 18 159/68 (98) 96 Room Air 02/08/18 12:18 99.1 99.1 Lab Values Laboratory Tests Test 02/08/18 13:00 02/08/18 14:34 02/08/18 16:49 White Blood Count 6.2 x10^3/uL (4.0-11.0) Red Blood Count 4.52 x10^6/uL (3.50-5.40) Hemoglobin 12.6 g/dL (12.0-15.5) Hematocrit 38.9 % (36.0-47.0) Mean Corpuscular Volume 86 fL (79-100) Mean Corpuscular Hemoglobin 28 pg (25-35) Mean Corpuscular Hemoglobin Concent 33 g/dL (31-37) Red Cell Distribution Width 19.1 % (11.5-14.5) H Platelet Count 335 x10^3/uL (140-400) Neutrophils (%) (Auto) 65 % (31-73) Lymphocytes (%) (Auto) 23 % (24-48) L Monocytes (%) (Auto) 8 % (0-9) Eosinophils (%) (Auto) 4 % (0-3) H Basophils (%) (Auto) 0 % (0-3) Neutrophils # (Auto) 4.0 x10^3uL (1.8-7.7) Lymphocytes # (Auto) 1.5 x10^3/uL (1.0-4.8) Monocytes # (Auto) 0.5 x10^3/uL (0.0-1.1) Eosinophils # (Auto) 0.2 x10^3/uL (0.0-0.7) Basophils # (Auto) 0.0 x10^3/uL (0.0-0.2) Sodium Level 151 mmol/L (136-145) H Potassium Level 3.8 mmol/L (3.5-5.1) Chloride Level 114 mmol/L (98-107) H Carbon Dioxide Level 28 mmol/L (21-32) Anion Gap 9 (6-14) 16 mmol/L (6-14) H Blood Urea Nitrogen 17 mg/dL (7-20) Creatinine 1.0 mg/dL (0.6-1.0) Estimated GFR (Cockcroft-Gault) 55.5 BUN/Creatinine Ratio 17 (6-20) Glucose Level 110 mg/dL (70-99) H 99 mg/dL (70-99) Lactic Acid Level 1.0 mmol/L (0.4-2.0) Calcium Level 9.2 mg/dL (8.5-10.1) Total Bilirubin 0.7 mg/dL (0.2-1.0) Aspartate Amino Transferase (AST) 20 U/L (15-37) Alanine Aminotransferase (ALT) 28 U/L (14-59) Alkaline Phosphatase 125 U/L (46-116) H Total Protein 7.8 g/dL (6.4-8.2) Albumin 3.3 g/dL (3.4-5.0) L Albumin/Globulin Ratio 0.7 (1.0-1.7) L Lipase 123 U/L (73-393) Urine Collection Type Unknown Urine Color Yellow Urine Clarity Cloudy Urine pH 5.5 Urine Specific [place] 1.020 Urine Protein Negative mg/dL (NEG-TRACE) Urine Glucose (UA) Negative mg/dL (NEG) Urine Ketones (Stick) Negative mg/dL (NEG) Urine Blood Negative (NEG) Urine Nitrite Negative (NEG) Urine Bilirubin Negative (NEG) Urine Urobilinogen Dipstick 0.2 mg/dL (0.2 mg/dL) Urine Leukocyte Esterase Negative (NEG) Urine RBC Occ /HPF (0-2) Urine WBC Occ /HPF (0-4) Urine Squamous Epithelial Cells Few /LPF Urine Bacteria 0 /HPF (0-FEW) Urine Mucus Mod /LPF POC Hemoglobin 12.2 g/dL (12-15) POC Hematocrit 36 % (36-40) POC Sodium 154 mmol/L (135-145) H POC Potassium 3.6 mmol/L (3.5-5.0) POC Chloride 116 mmol/L (98-110) H POC Total CO2 25 mmol/L (23-32) POC Blood Urea Nitrogen 14 mg/dL (8-26) POC Creatinine 0.8 mg/dL (0.5-1.4) POC Ionized Calcium (Honey) 1.11 mmol/L (1.13-1.32) L Laboratory Tests 02/08/18 13:00 Laboratory Tests 02/08/18 13:00 02/08/18 16:49 EKG EKG [] Radiology/Procedures Radiology/Procedures [PROCEDURE: CT ABD PELV W/ IV CONTRST ONLY CT of the abdomen and pelvis with contrast, 02/04/2018: HISTORY: Abdominal pain Multidetector CT imaging was performed following an IV bolus injection of iodinated contrast material. No oral contrast material was administered for this exam. Comparison is made to a study from 12/22/2017. Mild streaky atelectasis/infiltrate has developed in the lung bases, more so on the left. There is no evidence of pleural fluid. The gallbladder is surgically absent. No hepatic abnormality is seen. The pancreas is unremarkable. The spleen shows no abnormality. There is mild bilateral renal cortical scarring. There appear to be a couple of tiny cortical renal cysts on the right as well as a tiny isodense nodule in the left which is probably a complicated cyst. The kidneys show no evidence of obstruction. Aortoiliac calcific plaquing is present. No abdominal or pelvic adenopathy is seen. The uterus is surgically absent. Several small sigmoid diverticula are noted. No paracolonic inflammatory process is seen. There are surgical sutures related to a small bowel loop in the upper pelvis. The bowel loops are not dilated. No free fluid or free air is evident in the abdomen or pelvis. A wound in the anterior abdominal wall seen on the previous study has partially healed. An underlying discoid shaped fluid collection in the anterior abdominal wall has decreased in size and is now of more medium density suggesting scarring or granulation tissue. Associated gas collections in the anterior abdominal wall have diminished. An overlying wound drain is noted. IMPRESSION: 1. Improving anterior abdominal wound and underlying gas and fluid collections, apparently due to chronic infection. 2. No new intra-abdominal or pelvic abnormality is detected. 3. Minimal streaky bibasilar atelectasis/infiltrate. ] Course & Med Decision Making Course & Med Decision Making Pertinent Labs and Imaging studies reviewed. (See chart for details) [3:10 PM: The patient's condition remained stable. Wound care came to change the patient's wound VAC, and it appears that the wound VAC sponge does extended deep into the patient's wound, likely accounting for some of the air seen on the CT scan. I discussed test results with the patient, the need for close follow-up with her surgeon, and return precautions.] 5:00 PM: The patient was given IV hydration and had her basic metabolic panel checked at bedside. Her sodium remains stable to slightly increased. Review of the patient's records reveals that she has had similar Hypernatremia in the past. The exact etiology of this is unknown to me, but does not appear to be an acute problem for the patient. I did discuss importance of close follow-up further outpatient evaluation of the symptoms do not think that this warrants emergent addressing at this time. Dragon Disclaimer Dragon Disclaimer This electronic medical record was generated, in whole or in part, using a voice recognition dictation system. Departure Departure Impression: Primary Impression: Abdominal pain Disposition: HOME, SELF-CARE Condition: STABLE Referrals: CHRISTOPH LE MD (PCP) DANYA EPSTEIN MD Patient Instructions: Abdominal Pain Scripts Oxycodone/Apap 5-325 (PERCOCET 5-325 MG TABLET) 1 Each Tablet 1 TAB PO QID, #15 TAB Prov: AHMET SHELBY MD 02/08/18 AHMET SHELBY MD Feb 08, 2018 12:48
[2018-02-08 13:14] LABS: BASO % 0 % (0-3); EOS # 0.2 x10^3/uL (0.0-0.7); EOS % 4 % (0-3); HEMATOCRIT 38.9 % (36.0-47.0); HEMOGLOBIN 12.6 g/dL (12.0-15.5); LYMPH # 1.5 x10^3/uL (1.0-4.8); LYMPH % 23 % (24-48); MEAN CORPUSCULAR HEMOGLOBIN 28 pg (25-35); MEAN CORPUSCULAR HGB CONC 33 g/dL (31-37); MEAN CORPUSCULAR VOLUME 86 fL (79-100); MONO # 0.5 x10^3/uL (0.0-1.1); MONO % 8 % (0-9); NEUT % 65 % (31-73); PLATELET COUNT 335 x10^3/uL (140-400); RED BLOOD COUNT 4.52 x10^6/uL (3.50-5.40); RED CELL DISTRIBUTION WIDTH 19.1 % (11.5-14.5); WHITE BLOOD COUNT 6.2 x10^3/uL (4.0-11.0)
[2018-02-08 13:36] LABS: CALCIUM 9.2 mg/dL (8.5-10.1); GFR 55.5; POTASSIUM 3.8 mmol/L (3.5-5.1)
[2018-02-08 13:45] LABS: ALBUMIN 3.3 g/dL (3.4-5.0); ALBUMIN/GLOBULIN RATIO 0.7 (1.0-1.7); TOTAL BILIRUBIN 0.7 mg/dL (0.2-1.0); TOTAL PROTEIN 7.8 g/dL (6.4-8.2)
[2018-02-08] MEDS ORDERED: CONTRAST GIVEN. MC PRN (14:00)
[2018-02-08] MEDS ORDERED: IOHEXOL 300 MG/ML 100ML VIAL. IV ONE (14:00)
[2018-02-08] MEDS ORDERED: IV NORMAL SALINE 1000ML BAG 1,000 ML IV ONE (14:30)
[2018-02-08 14:41] LABS: BILIRUBIN,URINE NEGATIVE (NEG); CLARITY,URINE CLOUDY; COLOR,URINE YELLOW; NITRITE,URINE NEGATIVE (NEG); PH,URINE 5.5; PROTEIN,URINE NEGATIVE (NEG-TRACE); UROBILINOGEN,URINE 0.2 mg/dL (0.2 mg/dL)
[2018-02-08 14:53] LABS: SQUAMOUS EPITHELIAL CELL,UR FEW /LPF
--- NOTE | 2018-02-08 14:53 | RAD ---
CT of the abdomen and pelvis with contrast, 02/04/2018: HISTORY: Abdominal pain Multidetector CT imaging was performed following an IV bolus injection of iodinated contrast material. No oral contrast material was administered for this exam. Comparison is made to a study from 12/22/2017. Mild streaky atelectasis/infiltrate has developed in the lung bases, more so on the left. There is no evidence of pleural fluid. The gallbladder is surgically absent. No hepatic abnormality is seen. The pancreas is unremarkable. The spleen shows no abnormality. There is mild bilateral renal cortical scarring. There appear to be a couple of tiny cortical renal cysts on the right as well as a tiny isodense nodule in the left which is probably a complicated cyst. The kidneys show no evidence of obstruction. Aortoiliac calcific plaquing is present. No abdominal or pelvic adenopathy is seen. The uterus is surgically absent. Several small sigmoid diverticula are noted. No paracolonic inflammatory process is seen. There are surgical sutures related to a small bowel loop in the upper pelvis. The bowel loops are not dilated. No free fluid or free air is evident in the abdomen or pelvis. A wound in the anterior abdominal wall seen on the previous study has partially healed. An underlying discoid shaped fluid collection in the anterior abdominal wall has decreased in size and is now of more medium density suggesting scarring or granulation tissue. Associated gas collections in the anterior abdominal wall have diminished. An overlying wound drain is noted. IMPRESSION: 1. Improving anterior abdominal wound and underlying gas and fluid collections, apparently due to chronic infection. 2. No new intra-abdominal or pelvic abnormality is detected. 3. Minimal streaky bibasilar atelectasis/infiltrate. PQRS Compliance Statement: One or more of the following individualized dose reduction techniques were utilized for this examination: 1. Automated exposure control 2. Adjustment of the mA and/or kV according to patient size 3. Use of iterative reconstruction technique Electronically signed by: Ryan Hackett MD (02/08/2018 2:49 PM) [facility]
[2018-02-08 14:55] LABS: BACTERIA,URINE 0 /HPF (0-FEW); RBC,URINE OCC /HPF (0-2); WBC,URINE OCC /HPF (0-4)
[2018-02-08] MEDS ORDERED: OXYC1TAB15 PO (15:17)
[2018-02-08 16:04] VITALS: BP 155/68
[2018-02-08 16:57] LABS: CREATININE ISTAT 0.8 mg/dL (0.5-1.4); HEMOGLOBIN ISTAT 12.2 g/dL (12-15); ION CA ISTAT 1.11 mmol/L (1.13-1.32); POTASSIUM ISTAT 3.6 mmol/L (3.5-5.0)
== END 2018-02-08 17:20 | disposition home or self-care (01) ==
LOC: ER 11:31
DX: R10.84 Generalized abdominal pain (principal); R10.31 Right lower quadrant pain; E11.9 Type 2 diabetes mellitus without complications; I63.9 Cerebral infarction, unspecified; Z90.49 Acquired absence of other specified parts of digestive tract; Z90.89 Acquired absence of other organs; Z90.710 Acquired absence of both cervix and uterus; Z98.890 Other specified postprocedural states; Z91.041 Radiographic dye allergy status
CPT/HCPCS: 36415; 74177; 80047; 80053; 81001; 83605; 83690; 85025; 96374; 96375; 99284; J2270; J2405; J7030; Q9967; 96361

== ENCOUNTER → 2018-02-13 | Outpatient (CLI) | payer OTHER, MEDICARE ==
[2018-02-08 16:04] VITALS: BP 155/68
[~2018-02-13] MED LIST changes: -GABA-586 PO; +GABA300C18 PO
== END | disposition home or self-care (01) ==
LOC: PMGWOUND 09:57
PROVIDERS: ATTEND Emergency Medicine Undersea and Hyperbaric Medicine
DX: T81.31XD Disruption of external operation (surgical) wound, not elsewhere classified, subsequent encounter (principal); E11.52 Type 2 diabetes mellitus with diabetic peripheral angiopathy with gangrene; I96 Gangrene, not elsewhere classified; I13.0 Hypertensive heart and chronic kidney disease with heart failure and stage 1 through stage 4 chronic kidney disease, or unspecified chronic kidney disease; E11.22 Type 2 diabetes mellitus with diabetic chronic kidney disease; N18.9 Chronic kidney disease, unspecified; I50.9 Heart failure, unspecified; J44.9 Chronic obstructive pulmonary disease, unspecified; G47.33 Obstructive sleep apnea (adult) (pediatric); F17.210 Nicotine dependence, cigarettes, uncomplicated; K21.9 Gastro-esophageal reflux disease without esophagitis; M19.90 Unspecified osteoarthritis, unspecified site; Z86.73 Personal history of transient ischemic attack (TIA), and cerebral infarction without residual deficits; Z90.710 Acquired absence of both cervix and uterus; Y83.8 Other surgical procedures as the cause of abnormal reaction of the patient, or of later complication, without mention of misadventure at the time of the procedure
CPT/HCPCS: 97597

== ENCOUNTER → 2018-02-20 | Outpatient (CLI) | payer OTHER, MEDICARE ==
[2018-02-08 16:04] VITALS: BP 155/68
== END | disposition home or self-care (01) ==
LOC: PMGWOUND 10:08
PROVIDERS: ATTEND Emergency Medicine Undersea and Hyperbaric Medicine
DX: T81.31XD Disruption of external operation (surgical) wound, not elsewhere classified, subsequent encounter (principal); I13.0 Hypertensive heart and chronic kidney disease with heart failure and stage 1 through stage 4 chronic kidney disease, or unspecified chronic kidney disease; E11.22 Type 2 diabetes mellitus with diabetic chronic kidney disease; N18.9 Chronic kidney disease, unspecified; I50.9 Heart failure, unspecified; E11.52 Type 2 diabetes mellitus with diabetic peripheral angiopathy with gangrene; I96 Gangrene, not elsewhere classified; E11.00 Type 2 diabetes mellitus with hyperosmolarity without nonketotic hyperglycemic-hyperosmolar coma (NKHHC); J44.9 Chronic obstructive pulmonary disease, unspecified; F17.210 Nicotine dependence, cigarettes, uncomplicated; G47.30 Sleep apnea, unspecified; M19.90 Unspecified osteoarthritis, unspecified site; K21.9 Gastro-esophageal reflux disease without esophagitis; E66.9 Obesity, unspecified; Z68.41 Body mass index [BMI] 40.0-44.9, adult; Z90.710 Acquired absence of both cervix and uterus; Z90.49 Acquired absence of other specified parts of digestive tract; Z86.73 Personal history of transient ischemic attack (TIA), and cerebral infarction without residual deficits; Y83.8 Other surgical procedures as the cause of abnormal reaction of the patient, or of later complication, without mention of misadventure at the time of the procedure
CPT/HCPCS: 97597

== ENCOUNTER → 2018-02-27 | Outpatient (CLI) | payer OTHER, MEDICARE ==
[2018-02-08 16:04] VITALS: BP 155/68
== END | disposition home or self-care (01) ==
LOC: PMGWOUND 09:52
PROVIDERS: ATTEND Emergency Medicine Undersea and Hyperbaric Medicine
DX: T81.31XD Disruption of external operation (surgical) wound, not elsewhere classified, subsequent encounter (principal); E11.52 Type 2 diabetes mellitus with diabetic peripheral angiopathy with gangrene; I96 Gangrene, not elsewhere classified; E11.00 Type 2 diabetes mellitus with hyperosmolarity without nonketotic hyperglycemic-hyperosmolar coma (NKHHC); I13.0 Hypertensive heart and chronic kidney disease with heart failure and stage 1 through stage 4 chronic kidney disease, or unspecified chronic kidney disease; E11.22 Type 2 diabetes mellitus with diabetic chronic kidney disease; N18.9 Chronic kidney disease, unspecified; I50.9 Heart failure, unspecified; F17.210 Nicotine dependence, cigarettes, uncomplicated; J44.9 Chronic obstructive pulmonary disease, unspecified; G47.33 Obstructive sleep apnea (adult) (pediatric); M19.90 Unspecified osteoarthritis, unspecified site; E66.9 Obesity, unspecified; Z68.41 Body mass index [BMI] 40.0-44.9, adult; Z90.710 Acquired absence of both cervix and uterus; Z90.49 Acquired absence of other specified parts of digestive tract; Z86.73 Personal history of transient ischemic attack (TIA), and cerebral infarction without residual deficits; Y83.8 Other surgical procedures as the cause of abnormal reaction of the patient, or of later complication, without mention of misadventure at the time of the procedure
CPT/HCPCS: 97605

== ENCOUNTER → 2018-03-06 | Outpatient (CLI) | payer OTHER, MEDICARE ==
[2018-02-08 16:04] VITALS: BP 155/68
== END | disposition home or self-care (01) ==
LOC: PMGWOUND 10:04
PROVIDERS: ATTEND Emergency Medicine Undersea and Hyperbaric Medicine
DX: T81.31XD Disruption of external operation (surgical) wound, not elsewhere classified, subsequent encounter (principal); E11.00 Type 2 diabetes mellitus with hyperosmolarity without nonketotic hyperglycemic-hyperosmolar coma (NKHHC); E11.52 Type 2 diabetes mellitus with diabetic peripheral angiopathy with gangrene; I96 Gangrene, not elsewhere classified; I13.0 Hypertensive heart and chronic kidney disease with heart failure and stage 1 through stage 4 chronic kidney disease, or unspecified chronic kidney disease; E11.22 Type 2 diabetes mellitus with diabetic chronic kidney disease; N18.9 Chronic kidney disease, unspecified; I50.9 Heart failure, unspecified; F17.210 Nicotine dependence, cigarettes, uncomplicated; J44.9 Chronic obstructive pulmonary disease, unspecified; G47.33 Obstructive sleep apnea (adult) (pediatric); M19.90 Unspecified osteoarthritis, unspecified site; K21.9 Gastro-esophageal reflux disease without esophagitis; E66.9 Obesity, unspecified; Z68.41 Body mass index [BMI] 40.0-44.9, adult; Z90.710 Acquired absence of both cervix and uterus; Z90.49 Acquired absence of other specified parts of digestive tract; Z86.73 Personal history of transient ischemic attack (TIA), and cerebral infarction without residual deficits; Y83.8 Other surgical procedures as the cause of abnormal reaction of the patient, or of later complication, without mention of misadventure at the time of the procedure
CPT/HCPCS: 11042

== ENCOUNTER → 2018-03-13 | Outpatient (CLI) | payer OTHER, MEDICARE | END | disposition home or self-care (01) | LOC: PMGWOUND 09:52 | PROVIDERS: ATTEND Emergency Medicine Undersea and Hyperbaric Medicine | DX: T81.31XD Disruption of external operation (surgical) wound, not elsewhere classified, subsequent encounter (principal); E11.52 Type 2 diabetes mellitus with diabetic peripheral angiopathy with gangrene; I96 Gangrene, not elsewhere classified; E11.00 Type 2 diabetes mellitus with hyperosmolarity without nonketotic hyperglycemic-hyperosmolar coma (NKHHC); I13.0 Hypertensive heart and chronic kidney disease with heart failure and stage 1 through stage 4 chronic kidney disease, or unspecified chronic kidney disease; E11.22 Type 2 diabetes mellitus with diabetic chronic kidney disease; N18.9 Chronic kidney disease, unspecified; I50.9 Heart failure, unspecified; J44.9 Chronic obstructive pulmonary disease, unspecified; G47.33 Obstructive sleep apnea (adult) (pediatric); M19.90 Unspecified osteoarthritis, unspecified site; F17.210 Nicotine dependence, cigarettes, uncomplicated; E66.9 Obesity, unspecified; Z68.41 Body mass index [BMI] 40.0-44.9, adult; Z90.49 Acquired absence of other specified parts of digestive tract; Z90.710 Acquired absence of both cervix and uterus; Z86.73 Personal history of transient ischemic attack (TIA), and cerebral infarction without residual deficits; Y83.8 Other surgical procedures as the cause of abnormal reaction of the patient, or of later complication, without mention of misadventure at the time of the procedure | CPT/HCPCS: 99214; G0463 ==

== ENCOUNTER → 2018-03-27 | Outpatient (CLI) | payer OTHER, MEDICARE ==
[~2018-03-27] MED LIST changes: -PANT40TA5 PO; +PANT40TA77 PO
== END | disposition home or self-care (01) ==
LOC: PMGWOUND 09:52
PROVIDERS: ATTEND Emergency Medicine Undersea and Hyperbaric Medicine
DX: T81.31XD Disruption of external operation (surgical) wound, not elsewhere classified, subsequent encounter (principal); E11.52 Type 2 diabetes mellitus with diabetic peripheral angiopathy with gangrene; I96 Gangrene, not elsewhere classified; E11.00 Type 2 diabetes mellitus with hyperosmolarity without nonketotic hyperglycemic-hyperosmolar coma (NKHHC); I13.0 Hypertensive heart and chronic kidney disease with heart failure and stage 1 through stage 4 chronic kidney disease, or unspecified chronic kidney disease; E11.22 Type 2 diabetes mellitus with diabetic chronic kidney disease; N18.9 Chronic kidney disease, unspecified; I50.9 Heart failure, unspecified; J44.9 Chronic obstructive pulmonary disease, unspecified; G47.33 Obstructive sleep apnea (adult) (pediatric); E66.9 Obesity, unspecified; M19.90 Unspecified osteoarthritis, unspecified site; F17.210 Nicotine dependence, cigarettes, uncomplicated; K21.9 Gastro-esophageal reflux disease without esophagitis; Z68.41 Body mass index [BMI] 40.0-44.9, adult; Z90.710 Acquired absence of both cervix and uterus; Z86.73 Personal history of transient ischemic attack (TIA), and cerebral infarction without residual deficits; Z90.49 Acquired absence of other specified parts of digestive tract; Y83.8 Other surgical procedures as the cause of abnormal reaction of the patient, or of later complication, without mention of misadventure at the time of the procedure
CPT/HCPCS: 99214; G0463

== ENCOUNTER → 2018-05-01 | Outpatient (CLI) | payer OTHER, MEDICARE ==
[~2018-05-01] MED LIST changes: +PANT40TA5 PO; -PANT40TA77 PO
--- NOTE | 2018-05-01 09:42 | RAD ---
CT of the chest without contrast, 05/01/2018: HISTORY: Follow-up right upper lobe mass There is a slightly irregular solid right upper lobe mass which has increased in size since 12/23/2017. It currently measures 2.1 cm in greatest width compared to a measurement of 1.9 on the previous study. Its greatest AP dimension is 1.4 cm. No internal calcifications are seen. A right upper lobe subsegmental bronchus extends into this lesion. There is a calcified granuloma in the right lower lobe. There are mild residual hazy groundglass opacities posteriorly in the lower lobes, similar to that seen on the previous study. There are several additional smaller nonspecific groundglass foci such as in the right middle lobe on image 34 of series #2 and in the left upper lobe on image 16 of series #2. These appear unchanged since the previous study. There were more diffuse hazy posterolateral groundglass opacities in the right upper lobe on the previous study which have resolved. No pleural fluid is evident. There is moderate calcific plaquing of the thoracic aorta and its branches. Minimal coronary artery calcifications are present. There are calcified mediastinal and hilar lymph nodes due to old granulomatous disease. No definite mediastinal or hilar adenopathy is seen, although the misha are not optimally delineated on these noncontrast scans. There are scattered degenerative changes in the spine. At what appears to be the T10 level, a superior endplate defect with adjacent sclerosis and loss of vertebral body height has developed An intramuscular lipoma is again noted anterolaterally in the upper right abdominal wall. IMPRESSION: 1. Enlarging right upper lobe pulmonary nodule suggesting a primary lung malignancy. 2. Additional scattered groundglass opacities in both lungs likely due to chronic lung disease and/or inflammation. Atypical adenomatous hyperplasia or low-grade adenocarcinoma cannot be excluded. 3. New T10 vertebral compression deformity with lucent sclerotic changes. This could be posttraumatic or metastatic. 4. FDG/PET imaging may be useful for further evaluation, if clinically indicated. PQRS Compliance Statement: One or more of the following individualized dose reduction techniques were utilized for this examination: 1. Automated exposure control 2. Adjustment of the mA and/or kV according to patient size 3. Use of iterative reconstruction technique Electronically signed by: Ryan Hackett MD (05/01/2018 9:38 AM) [facility]
== END | disposition home or self-care (01) ==
LOC: CT 07:38
PROVIDERS: ATTEND Internal Medicine
DX: R91.8 Other nonspecific abnormal finding of lung field (principal); D17.79 Benign lipomatous neoplasm of other sites; I25.10 Atherosclerotic heart disease of native coronary artery without angina pectoris; E11.40 Type 2 diabetes mellitus with diabetic neuropathy, unspecified; I67.1 Cerebral aneurysm, nonruptured; I10 Essential (primary) hypertension
CPT/HCPCS: 71250

== ENCOUNTER → 2018-05-04 | Outpatient (CLI) | payer OTHER, MEDICARE ==
--- NOTE | 2018-05-04 10:25 | RAD ---
FDG tumor localization scan, PET/CT, 05/04/2018: History: Lung mass Following IV injection of 14.7 mCi of 18 F-FDG, imaging was performed from the skull base to the proximal thighs. The noncontrast CT component was performed for attenuation correction and anatomic localization purposes rather than for primary diagnosis. The patient's blood glucose level at the time of injection was 119 MG/DL. Physiologic FDG uptake is seen in the neck. No hypermetabolic neck process is evident. The patient's known 2.1 cm enlarging right upper lobe pulmonary nodule is hypermetabolic with a maximum SUV of 3.8. No other hypermetabolic pulmonary process is seen. Small groundglass opacities seen in the left upper lobe and right middle lobe on the CT study of 05/01/2018 are not FDG PET positive, however, that is not unexpected considering their small sizes and nonsolid nature. No mediastinal or hilar hypermetabolic adenopathy is seen. Normal GI tract and urinary tract activity is present in the abdomen and pelvis. No hypermetabolic intra-abdominal or pelvic mass is identified. There is soft tissue thickening involving the anterior abdominal wall near the midline extending into the subcutaneous soft tissues. This is a wide discoid shaped process which is presumably postsurgical. This process is hypermetabolic compatible with ongoing inflammation. The maximum SUV is in the 5-[address] component does not demonstrate a significant discrete fluid collection at this time. The patient's known T10 vertebral compression fracture demonstrates increased FDG uptake in the vertebral body. The maximum SUV is 7.0. Mildly increased FDG uptake in other portions of the spine is probably arthritic. 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 A density in the right maxillary sinus is probably a retention cyst. IMPRESSION: 1. Hypermetabolic right upper lobe pulmonary nodule suggesting a primary lung malignancy. A metastasis or inflammatory process is less likely. 2. No hypermetabolic mediastinal or hilar adenopathy is identified. 3. The patient's known T10 vertebral compression deformity is hypermetabolic, which could be on a metastatic or posttraumatic basis. 4. Anterior abdominal wall thickening is diffusely hypermetabolic compatible with residual postsurgical inflammation.
== END | disposition home or self-care (01) ==
LOC: PETSC 07:33
PROVIDERS: ATTEND Internal Medicine
DX: R91.1 Solitary pulmonary nodule (principal); M43.8X4 Other specified deforming dorsopathies, thoracic region; G93.89 Other specified disorders of brain
CPT/HCPCS: 78815; A9552

== ENCOUNTER → 2018-08-02 | Outpatient (CLI) | payer MEDICARE, OTHER ==
--- NOTE | 2018-08-02 14:54 | RAD ---
CT of the chest without contrast, 08/02/2018: HISTORY: Right upper lobe mass Comparison is made to a study from 05/01/2018. There is a persistent irregular right upper lobe mass along the lateral aspect of the right hilum. It appears to have increased very slightly in size, as best demonstrated on coronal image 36 of series #5. On that image the nodule measures 1.9 x 2.3 cm compared to measurements of 1.8 x 2.2 cm on the previous study. Hazy groundglass opacities posteriorly in both lower lobes are unchanged. Several other smaller scattered groundglass opacities are again noted. An 8 mm focal groundglass opacity in the right middle lobe appears unchanged, as currently visualized on image 32 of series #2. No new pulmonary nodule or dense consolidation is seen. There is no evidence of pleural fluid. There is calcific plaquing of the aorta and its branches. Minimal coronary artery calcifications are present. There are calcified mediastinal lymph nodes. No mediastinal adenopathy is seen. A tiny radiopacity is noted in the upper pole of the left kidney. There is an unchanged superior endplate deformity at what appears to be the T10 level. IMPRESSION: 1. Very slight interval increase in size of the patient's right upper lobe pulmonary nodule. Slowly growing malignancy is likely. 2. Unchanged small scattered groundglass pulmonary opacities. 3. Unchanged T10 compression deformity. PQRS Compliance Statement: One or more of the following individualized dose reduction techniques were utilized for this examination: 1. Automated exposure control 2. Adjustment of the mA and/or kV according to patient size 3. Use of iterative reconstruction technique Electronically signed by: Ryan Hackett MD (08/02/2018 2:51 PM) [facility]
== END | disposition home or self-care (01) ==
LOC: CT 15:36
PROVIDERS: ATTEND Internal Medicine
DX: I25.10 Atherosclerotic heart disease of native coronary artery without angina pectoris (principal); J98.59 Other diseases of mediastinum, not elsewhere classified; R91.8 Other nonspecific abnormal finding of lung field; R91.1 Solitary pulmonary nodule; I10 Essential (primary) hypertension; E11.9 Type 2 diabetes mellitus without complications; Z79.4 Long term (current) use of insulin; Z79.899 Other long term (current) drug therapy
CPT/HCPCS: 71250

== ENCOUNTER 2019-06-11 11:52 | Emergency (ER) | payer OTHER ==
[~2019-06-11] VITALS: Ht 157.5 cm; Wt 74.7 kg
[~2019-06-11 11:52] MED LIST changes: +DIPH25CA23 PO; -DIPH25CA3 PO; -GLIM2TAB2 PO; +GLIM2TAB7 PO; -LINE600T PO; +LINE600T12 PO; +MECL-75 PO; -MECL25TA3 PO; -PANT40TA5 PO; +PANT40TA77 PO
[2019-06-11] MEDS ORDERED: IPRATRPIUM/ALBUTEROL 0.5/2.5MG 3 ML NEBU. NEB ONE (13:30)
[2019-06-11 13:45] LABS: BASO % 1 % (0-3); EOS # 0.2 x10^3/uL (0.0-0.7); EOS % 3 % (0-3); HEMATOCRIT 41.2 % (36.0-47.0); HEMOGLOBIN 13.6 g/dL (12.0-15.5); LYMPH # 1.3 x10^3/uL (1.0-4.8); LYMPH % 18 % (24-48); MEAN CORPUSCULAR HEMOGLOBIN 29 pg (25-35); MEAN CORPUSCULAR HGB CONC 33 g/dL (31-37); MEAN CORPUSCULAR VOLUME 86 fL (79-100); MONO # 0.6 x10^3/uL (0.0-1.1); MONO % 8 % (0-9); NEUT # 5.4 x10^3/uL (1.8-7.7); NEUT % 71 % (31-73); PLATELET COUNT 359 x10^3/uL (140-400); RED BLOOD COUNT 4.79 x10^6/uL (3.50-5.40); RED CELL DISTRIBUTION WIDTH 13.7 % (11.5-14.5); WHITE BLOOD COUNT 7.7 x10^3/uL (4.0-11.0)
--- NOTE | 2019-06-11 13:49 | PHYS DOC ---
Past Medical History Past Medical History: Diabetes-Type II, Hypertension Additional Past Medical Histor: subdural hematoma,VERTIGO,CHRONIC PAIN (USMAN MOCK APRN) Past Surgical History: Appendectomy, Cholecystectomy, Hysterectomy, Other Additional Past Surgical Histo: subdural hematoma, hernia repair (USMAN MOCK APRN) Smoking Status: Current Every Day Smoker Alcohol Use: None Drug Use: None (USMAN MOCK APRN) Attending Signature I have participated in the care of this patient and I have reviewed and agree with all pertinent clinical information above including history, exam, and recommendations. (TONY SALMERON DO) Adult General Chief Complaint Chief Complaint: COUGH HPI HPI Patient is a 68 year old female with history of diabetes type 2, hypertension, current smoker who presents to the ED today complaining of cough or shortness of breath, symptoms began a couple days ago. Patient reports being seen by the PCP and started on Cipro. Denies any chest pain. Patient is a very poor historian. (USMAN MOCK APRN) Review of Systems Review of Systems Constitutional: Denies fever or chills [] Eyes: Denies change in visual acuity, redness, or eye pain [] HENT: Denies nasal congestion or sore throat [] Respiratory: Reports cough and shortness of breath [] Cardiovascular: No additional information not addressed in HPI [] GI: Denies abdominal pain, nausea, vomiting, bloody stools or diarrhea [] : Denies dysuria or hematuria [] Musculoskeletal: Denies back pain or joint pain [] Integument: Denies rash or skin lesions [] Neurologic: Denies headache, focal weakness or sensory changes [] All other systems were reviewed and found to be within normal limits, except as documented in this note. (USMAN MOCK APRN) Current Medications Current Medications Current Medications Medications (Trade) Dose Ordered Sig/Maite Start Time Stop Time Status Last Admin Dose Admin Albuterol/ Ipratropium (Duoneb) 3 ml 1X ONCE 06/11/19 13:30 06/11/19 13:31 DC 06/11/19 14:00 3 ML (TONY SALMERON DO) Allergies Allergies Allergies Coded Allergies Type Severity Reaction Last Updated Verified I S O L A T I O N *CONTACT* Allergy Unknown 11/15/17 Yes No Known Medication Allergies Allergy Unknown 11/15/17 Yes (TONY SALMERON ) Physical Exam Physical Exam Constitutional: Well developed, well nourished, no acute distress, non-toxic appearance. [] HENT: Normocephalic, atraumatic, bilateral external ears normal, oropharynx moist, no oral exudates, nose normal. [] Eyes: PERRLA, EOMI, conjunctiva normal, no discharge. [] Neck: Normal range of motion, no tenderness, supple, no stridor. [] Cardiovascular:Heart rate regular rhythm, no murmur [] Lungs & Thorax: Patient is actively coughing, coarse lung sounds with wheezes to posterior lung bases, short of air on exertion Abdomen: Bowel sounds normal, soft, no tenderness, no masses, no pulsatile masses. [] Skin: Warm, dry, no erythema, no rash. [] Back: No tenderness, no CVA tenderness. [] Extremities: No tenderness, no cyanosis, no clubbing, ROM intact, no edema. [] Neurologic: Alert and oriented X 3, normal motor function, normal sensory function, no focal deficits noted. [] Psychologic: Affect normal, judgement normal, mood normal. [] (USMAN MOCK APRN) Current Patient Data Vital Signs Vital Signs Date Time Temp Pulse Resp B/P (MAP) Pulse Ox O2 Delivery O2 Flow Rate FiO2 06/11/19 17:10 90 192/85 (120) 95 Room Air 06/11/19 15:10 2.0 06/11/19 13:24 99.6 24 99.6 ([facility] ) Lab Values Laboratory Tests Test 06/11/19 13:10 06/11/19 13:26 Influenza Type A Antigen Negative (NEGATIVE) Influenza Type B Antigen Negative (NEGATIVE) Group A Streptococcus Rapid Negative (NEGATIVE) White Blood Count 7.7 x10^3/uL (4.0-11.0) Red Blood Count 4.79 x10^6/uL (3.50-5.40) Hemoglobin 13.6 g/dL (12.0-15.5) Hematocrit 41.2 % (36.0-47.0) Mean Corpuscular Volume 86 fL (79-100) Mean Corpuscular Hemoglobin 29 pg (25-35) Mean Corpuscular Hemoglobin Concent 33 g/dL (31-37) Red Cell Distribution Width 13.7 % (11.5-14.5) Platelet Count 359 x10^3/uL (140-400) Neutrophils (%) (Auto) 71 % (31-73) Lymphocytes (%) (Auto) 18 % (24-48) L Monocytes (%) (Auto) 8 % (0-9) Eosinophils (%) (Auto) 3 % (0-3) Basophils (%) (Auto) 1 % (0-3) Neutrophils # (Auto) 5.4 x10^3/uL (1.8-7.7) Lymphocytes # (Auto) 1.3 x10^3/uL (1.0-4.8) Monocytes # (Auto) 0.6 x10^3/uL (0.0-1.1) Eosinophils # (Auto) 0.2 x10^3/uL (0.0-0.7) Basophils # (Auto) 0.0 x10^3/uL (0.0-0.2) Sodium Level 145 mmol/L (136-145) Potassium Level 3.5 mmol/L (3.5-5.1) Chloride Level 109 mmol/L (98-107) H Carbon Dioxide Level 27 mmol/L (21-32) Anion Gap 9 (6-14) Blood Urea Nitrogen 14 mg/dL (7-20) Creatinine 0.8 mg/dL (0.6-1.0) Estimated GFR (Cockcroft-Gault) 71.5 BUN/Creatinine Ratio 18 (6-20) Glucose Level 110 mg/dL (70-99) H Lactic Acid Level 1.1 mmol/L (0.4-2.0) Calcium Level 8.6 mg/dL (8.5-10.1) Magnesium Level 1.7 mg/dL (1.8-2.4) L Total Bilirubin 0.7 mg/dL (0.2-1.0) Aspartate Amino Transferase (AST) 16 U/L (15-37) Alanine Aminotransferase (ALT) 35 U/L (14-59) Alkaline Phosphatase 85 U/L (46-116) Creatine Kinase 76 U/L (26-192) Creatine Kinase MB (Mass) 1.2 ng/mL (0.0-3.6) Creatine Kinase MB Relative Index 1.6 % (0-4) Troponin I Quantitative < 0.017 ng/mL (0.000-0.055) ZW-Zmc-U-Type Natriuretic Peptide 437 pg/mL (0-124) H Total Protein 7.3 g/dL (6.4-8.2) Albumin 3.3 g/dL (3.4-5.0) L Albumin/Globulin Ratio 0.8 (1.0-1.7) L Procalcitonin < 0.10 ng/mL (0.00-0.10) Thyroid Stimulating Hormone (TSH) 0.872 uIU/mL (0.358-3.74) Laboratory Tests 06/11/19 13:26 Laboratory Tests 06/11/19 13:26 Microbiology 06/11/19 Blood Culture - Preliminary, Resulted NO GROWTH AFTER 1 DAY (TONY SALMERON DO) Lab Values Laboratory Tests Test 06/11/19 13:10 06/11/19 13:26 Influenza Type A Antigen Negative (NEGATIVE) Influenza Type B Antigen Negative (NEGATIVE) Group A Streptococcus Rapid Negative (NEGATIVE) White Blood Count 7.7 x10^3/uL (4.0-11.0) Red Blood Count 4.79 x10^6/uL (3.50-5.40) Hemoglobin 13.6 g/dL (12.0-15.5) Hematocrit 41.2 % (36.0-47.0) Mean Corpuscular Volume 86 fL (79-100) Mean Corpuscular Hemoglobin 29 pg (25-35) Mean Corpuscular Hemoglobin Concent 33 g/dL (31-37) Red Cell Distribution Width 13.7 % (11.5-14.5) Platelet Count 359 x10^3/uL (140-400) Neutrophils (%) (Auto) 71 % (31-73) Lymphocytes (%) (Auto) 18 % (24-48) L Monocytes (%) (Auto) 8 % (0-9) Eosinophils (%) (Auto) 3 % (0-3) Basophils (%) (Auto) 1 % (0-3) Neutrophils # (Auto) 5.4 x10^3/uL (1.8-7.7) Lymphocytes # (Auto) 1.3 x10^3/uL (1.0-4.8) Monocytes # (Auto) 0.6 x10^3/uL (0.0-1.1) Eosinophils # (Auto) 0.2 x10^3/uL (0.0-0.7) Basophils # (Auto) 0.0 x10^3/uL (0.0-0.2) Sodium Level 145 mmol/L (136-145) Potassium Level 3.5 mmol/L (3.5-5.1) Chloride Level 109 mmol/L (98-107) H Carbon Dioxide Level 27 mmol/L (21-32) Anion Gap 9 (6-14) Blood Urea Nitrogen 14 mg/dL (7-20) Creatinine 0.8 mg/dL (0.6-1.0) Estimated GFR (Cockcroft-Gault) 71.5 BUN/Creatinine Ratio 18 (6-20) Glucose Level 110 mg/dL (70-99) H Lactic Acid Level 1.1 mmol/L (0.4-2.0) Calcium Level 8.6 mg/dL (8.5-10.1) Magnesium Level 1.7 mg/dL (1.8-2.4) L Total Bilirubin 0.7 mg/dL (0.2-1.0) Aspartate Amino Transferase (AST) 16 U/L (15-37) Alanine Aminotransferase (ALT) 35 U/L (14-59) Alkaline Phosphatase 85 U/L (46-116) Creatine Kinase 76 U/L (26-192) Creatine Kinase MB (Mass) 1.2 ng/mL (0.0-3.6) Creatine Kinase MB Relative Index 1.6 % (0-4) Troponin I Quantitative < 0.017 ng/mL (0.000-0.055) OX-Hne-O-Type Natriuretic Peptide 437 pg/mL (0-124) H Total Protein 7.3 g/dL (6.4-8.2) Albumin 3.3 g/dL (3.4-5.0) L Albumin/Globulin Ratio 0.8 (1.0-1.7) L Procalcitonin < 0.10 ng/mL (0.00-0.10) Thyroid Stimulating Hormone (TSH) 0.872 uIU/mL (0.358-3.74) Laboratory Tests 06/11/19 13:26 Laboratory Tests 06/11/19 13:26 (USMAN MOCK APRN) EKG EKG [address] Salmeron sinus rhythm HR 89 no STEMI[] (USMAN MOCK APRN) Radiology/Procedures Radiology/Procedures []PROCEDURE: PORTABLE CHEST 1V EXAM: PORTABLE CHEST 1V INDICATION: Cough, shortness of air. TECHNIQUE: Single view COMPARISON: Chest CT of August 02, 2018 FINDINGS: The heart size is normal. The great vessels appear unremarkable. There is no hilar or mediastinal mass. Lungs show hazy ovoid opacity in the right midlung. The ovoid opacity by x-ray measures 3.3 cm, up from 2.3 cm on last year's CT. There is no pleural effusion or pneumothorax. There are no significant osseous abnormalities. IMPRESSION: Persistent oval mass in the right lung, likely an indolent malignancy. No radiographic evidence of an acute superimposed cardiopulmonary process.. Electronically signed by: Enoch Eduardo MD (06/11/2019 1:46 PM) [id number] DICTATED and SIGNED BY: ENOCH EDUARDO MD DATE: 06/11/19 1346 (USMAN MOCK APRN) Course & Med Decision Making Course & Med Decision Making Pertinent Labs and Imaging studies reviewed. (See chart for details) This is a 68-year-old female patient presenting to the ED today with complaints of cough and shortness of breath, symptoms began couple days ago. Currently on Cipro. CBC with normal WBC, CMP-no acute findings. Chest x-rays noted for persistent oval mass in the right lung, likely an indolent malignancy otherwise no acute findings. O2 sats 92% to 97% on room air she is afebrile. Patient was given a DuoNeb treatment in the ED. Spoke with the PCP -discharged to home. Follow-up with the PCP in the course of this week, encouraged to consider smoking cessation. (USMAN MOCK APRN) Dragon Disclaimer Dragon Disclaimer This electronic medical record was generated, in whole or in part, using a voice recognition dictation system. (USMAN MOCK APRN) Departure Departure Impression: Primary Impression: COPD exacerbation Additional Impression: Smoking addiction Disposition: HOME, SELF-CARE Condition: STABLE Referrals: CHRISTOPH LE MD (PCP) Follow-up in the course of this week Patient Instructions: Chronic Obstructive Pulmonary Disease Exacerbation, Smoking Cessation Additional Instructions: You were evaluated in the emergency room with symptoms suspicious of COPD. Continue breathing treatments at home, continue taking the antibiotics until completed. Follow-up with your own doctor in the course of this week. Scripts Albuterol Sulfate (Proair Hfa) 8.5 Gm Hfa.aer.ad 2 PUFF IH PRN Q4-6HRS PRN for wheezing for 21 Days, #1 INHALER 0 Refills Prov: USMAN MOCK APRN 06/11/19 Problem Qualifiers USMAN MOCK APRN Jun 11, 2019 13:49 TONY SALMERON DO Jun 13, 2019 10:16
[2019-06-11 14:03] LABS: CALCIUM 8.6 mg/dL (8.5-10.1); CREATININE 0.8 mg/dL (0.6-1.0); GFR 71.5; POTASSIUM 3.5 mmol/L (3.5-5.1)
[2019-06-11 14:16] LABS: INFLUENZA A PATIENT NEGATIVE (NEGATIVE); INFLUENZA B PATIENT NEGATIVE (NEGATIVE)
[2019-06-11 14:17] LABS: ALBUMIN 3.3 g/dL (3.4-5.0); ALBUMIN/GLOBULIN RATIO 0.8 (1.0-1.7); MAGNESIUM 1.7 mg/dL (1.8-2.4); TOTAL BILIRUBIN 0.7 mg/dL (0.2-1.0); TOTAL PROTEIN 7.3 g/dL (6.4-8.2)
--- NOTE | 2019-06-11 15:48 | EKG ---
[facility] [address] [place] [address] Test Date: 2019-06-11 Test Time: 14:02:16 Pat Name: RICKY BATISTA Department: Room: Gender: F Optician: : 1950 Requested By: USMAN MOCK Order Number: [id number] Reading MD: Measurements Intervals [place] Rate: 89 P: 48 RI: 164 QRS: 68 QRSD: 86 T: 66 QT: 392 QTc: 478 Interpretive Statements SINUS RHYTHM QRS(T) CONTOUR ABNORMALITY CONSIDER ANTEROSEPTAL MYOCARDIAL DAMAGE PROLONGED QT POSSIBLY ABNORMAL ECG RI6.01 No previous ECG available for comparison
[2019-06-11 17:10] VITALS: BP 192/85
[2019-06-11] MEDS ORDERED: ALBU2.5V8 IH (17:54)
== END 2019-06-11 18:35 | disposition home or self-care (01) ==
LOC: ER 11:52
DX: J44.1 Chronic obstructive pulmonary disease with (acute) exacerbation (principal); G89.29 Other chronic pain; E11.9 Type 2 diabetes mellitus without complications; I10 Essential (primary) hypertension; F17.200 Nicotine dependence, unspecified, uncomplicated; Z91.041 Radiographic dye allergy status
CPT/HCPCS: 36415; 71045; 80053; 82553; 83605; 83735; 83880; 84145; 84443; 84484; 85025; 87040; 87070; 87804; 87880; 93005; 94640; 99285-25

== ENCOUNTER 2019-09-29 12:09 | Emergency (ER) | payer OTHER ==
[~2019-09-29] VITALS: Ht 162.6 cm; Wt 105.5 kg
[~2019-09-29 12:09] MED LIST changes: +ALBU2.5V8 IH; -CALC600T4 PO; +CALC600T6 PO
[2019-09-29 13:09] VITALS: BP 185/84
--- NOTE | 2019-09-29 13:50 | PHYS DOC ---
Past Medical History Past Medical History: Arthritis, Diabetes-Type II, Hypertension Additional Past Medical Histor: subdural hematoma,VERTIGO,CHRONIC PAIN Past Surgical History: Appendectomy, Cholecystectomy, Hysterectomy, Other Additional Past Surgical Histo: subdural hematoma, hernia repair Smoking Status: Current Every Day Smoker Additional Information: 1 PPD Alcohol Use: None Drug Use: None General Adult EDM: Chief Complaint: PAIN CONTROL HPI: HPI: Patient is a 69-year-old chronic pain patient who has severe back pain and is followed by Dr. Serna. She is recently had her [place] increased to 7.5 mg tablets. Her and her both state that this is not been cutting the pain. She denies any radicular symptoms. She denies any new trauma. She states the pain has intensified since last she is not been able to get into see her primary care doctor because the office has been closed. [] Review of Systems: Review of Systems: Constitutional: Denies fever or chills. [] Eyes: Denies change in visual acuity. [] HENT: Denies nasal congestion or sore throat. [] Respiratory: Denies cough or shortness of breath. [] Cardiovascular: Denies chest pain or edema. [] GI: Denies abdominal pain, nausea, vomiting, bloody stools or diarrhea. [] : Denies dysuria. [] Musculoskeletal: Chronic back pain. [] Integument: Denies rash. [] Neurologic: Denies headache, focal weakness or sensory changes. [] Endocrine: Denies polyuria or polydipsia. [] Lymphatic: Denies swollen glands. [] Psychiatric: Denies depression or anxiety. [] Heart Score: Risk Factors: Risk Factors: DM, Current or recent (<one month) smoker, HTN, HLP, family history of CAD, obesity. Risk Scores: Score 0 - 3: 2.5% MACE over next 6 weeks - Discharge Home Score 4 - 6: 20.3% MACE over next 6 weeks - Admit for Clinical Observation Score 7 - 10: 72.7% MACE over next 6 weeks - Early Invasive Strategies Current Medications: Current Medications Medications (Trade) Dose Ordered Sig/Maite Start Time Stop Time Status Last Admin Dose Admin Hydromorphone HCl (Dilaudid) 1 mg 1X ONCE 09/29/19 14:00 09/29/19 14:01 09/29/19 13:34 1 MG Allergies: Allergies: Allergies Coded Allergies Type Severity Reaction Last Updated Verified I S O L A T I O N *CONTACT* Allergy Unknown 11/15/17 Yes No Known Medication Allergies Allergy Unknown 11/15/17 Yes Physical Exam: PE: Constitutional: Well developed, well nourished, moderate distress, non-toxic appearance. [] HENT: Normocephalic, atraumatic, bilateral external ears normal, oropharynx moist, no oral exudates, nose normal. [] Eyes: PERRLA, EOMI, conjunctiva normal, no discharge. [] Neck: Normal range of motion, no tenderness, supple, no stridor. [] Cardiovascular:Heart rate regular rhythm, no murmur [] Lungs & Thorax: Bilateral breath sounds clear to auscultation [] Abdomen: Bowel sounds normal, soft, no tenderness, no masses, no pulsatile masses. [] Skin: Warm, dry, no erythema, no rash. [] Back: Diffuse paraspinal muscle spasm from lumbar to mid thoracic range she does have an increased kyphosis by palpation. [] Extremities: No tenderness, no cyanosis, no clubbing, ROM intact, no edema. [] Neurologic: Alert and oriented X 3, normal motor function, normal sensory function, no focal deficits noted. [] Psychologic: Anxious Current Patient Data: Vital Signs: Vital Signs Date Time Temp Pulse Resp B/P (MAP) Pulse Ox O2 Delivery O2 Flow Rate FiO2 09/29/19 13:34 20 97 Room Air 09/29/19 13:09 97.9 88 185/84 (117) 97.9 EKG: EKG: [] Radiology/Procedures: Radiology/Procedures: [] Course & Med Decision Making: Course & Med Decision Making Pertinent Labs and Imaging studies reviewed. (See chart for details) [] Dragon Disclaimer: [employer] ( H[employer] ) Disclaimer: This electronic medical record was generated, in whole or in part, using a voice recognition dictation system. Departure Departure Impression: Primary Impression: Exacerbation of chronic back pain Disposition: HOME, SELF-CARE Condition: IMPROVED Referrals: CHRISTOPH SERNA MD (PCP) Patient Instructions: Back Pain, Adult Additional Instructions: Return to the emergency department with any new or concerning symptoms Justicifation of Admission Dx: Justifications for Admission: Justification of Admission Dx: SALAS Jain DO Sep 29, 2019 13:50
[2019-09-29] MEDS ORDERED: HYDROmorphone 2 MG/ML VIAL IM ONE (14:00)
== END 2019-09-29 13:58 | disposition home or self-care (01) ==
LOC: ER 12:09
DX: G89.29 Other chronic pain (principal); M54.6 Pain in thoracic spine; M19.90 Unspecified osteoarthritis, unspecified site; E11.9 Type 2 diabetes mellitus without complications; F17.200 Nicotine dependence, unspecified, uncomplicated; Z90.49 Acquired absence of other specified parts of digestive tract; Z90.710 Acquired absence of both cervix and uterus; Z98.890 Other specified postprocedural states
CPT/HCPCS: 96372; 99283; J1170

== ENCOUNTER 2019-10-17 02:09 | Emergency (ER) | payer OTHER ==
[~2019-10-17] VITALS: Ht 162.6 cm; Wt 110.0 kg
[2019-10-17 02:55] VITALS: BP 198/87
[2019-10-17] MEDS: HYDROmorphone 2 MG/ML VIAL IM ONE (03:19)
--- NOTE | 2019-10-17 03:23 | RAD ---
INDICATION: Hip and back pain COMPARISON: April 2018 IMPRESSION: Lumbar spine: 3 views obtained. Severe calcific atherosclerosis. Degenerative changes of the spine with osteophyte formation at the vertebral body endplates as well as facet hypertrophy. No definite acute fracture or dislocation. Right hip: 3 views obtained. No definite acute fracture or dislocation. Electronically signed by: Timo Malik MD (10/17/2019 3:20 AM) [id number]
--- NOTE | 2019-10-17 03:41 | PHYS DOC ---
Past Medical History Past Medical History: Arthritis, Diabetes-Type II, Hypertension Additional Past Medical Histor: subdural hematoma,VERTIGO,CHRONIC PAIN Past Surgical History: Appendectomy, Cholecystectomy, Hysterectomy, Other Additional Past Surgical Histo: subdural hematoma, hernia repair Smoking Status: Current Every Day Smoker Alcohol Use: None Drug Use: None General Adult EDM: Chief Complaint: HIP PAIN HPI: HPI: Patient is a 69 year old female presents with an exacerbation of her chronic lower back and right hip pain. Patient was seen here in September for similar symptoms and follow-up with her primary care doctor and has been taking hy dromorphone 2 mg orally without much relief. Pain got more severe in her right lumbar area radiating to her right hip that she could not take and had to come to the ER for evaluation. Patient denies any trauma. Patient states the pain is 10 out of 10 with movement and radiates from the back into her upper leg. Patient denies any weakness or numbness or bowel incontinence there is also no bladder incontinence. Review of Systems: Review of Systems: Constitutional: Denies fever or chills. [] Eyes: Denies change in visual acuity. [] HENT: Denies nasal congestion or sore throat. [] Respiratory: Denies cough or shortness of breath. [] Cardiovascular: Denies chest pain or edema. [] GI: Denies abdominal pain, nausea, vomiting, bloody stools or diarrhea. [] : Denies dysuria. [] Musculoskeletal: Complains of lumbar pain and right hip pain Integument: Denies rash. [] Neurologic: Denies headache, focal weakness or sensory changes. [] Endocrine: Denies polyuria or polydipsia. [] Lymphatic: Denies swollen glands. [] Psychiatric: Denies depression or anxiety. [] Heart Score: Risk Factors: Risk Factors: DM, Current or recent (<one month) smoker, HTN, HLP, family h istory of CAD, obesity. Risk Scores: Score 0 - 3: 2.5% MACE over next 6 weeks - Discharge Home Score 4 - 6: 20.3% MACE over next 6 weeks - Admit for Clinical Observation Score 7 - 10: 72.7% MACE over next 6 weeks - Early Invasive Strategies Current Medications: Current Medications Medications (Trade) Dose Ordered Sig/Maite Start Time Stop Time Status Last Admin Dose Admin Hydromorphone HCl (Dilaudid) 1 mg 1X ONCE 10/17/19 03:15 10/17/19 03:16 DC 10/17/19 03:19 1 MG Allergies: Allergies: Allergies Coded Allergies Type Severity Reaction Last Updated Verified I S O L A T I O N *CONTACT* Allergy Unknown 11/15/17 Yes No Known Medication Allergies Allergy Unknown 11/15/17 Yes Physical Exam: PE: Constitutional: Well developed, well nourished, no acute distress, non-toxic appearance. [] HENT: Normocephalic, atraumatic, bilateral external ears normal, no trismus, nose normal. [] Eyes: PERRLA, EOMI, conjunctiva normal, no discharge. [] Neck: Normal range of motion, no tenderness, supple, no stridor. [] Cardiovascular:Heart rate regular rhythm, peripheral pulses intact Lungs & Thorax: Bilateral breath sounds clear, no respiratory distress Abdomen: , soft, no tenderness, no masses, no pulsatile masses. [] Skin: Warm, dry, no erythema, no rash. [] Back: Tender to palpate in the right lower lumbar area Extremities: No tenderness, no cyanosis, no clubbing, ROM intact, no edema. [] Mild tender to palpate in the right hip Neurologic: Alert and oriented X 3, normal motor function, normal sensory function, no focal deficits noted. [] Dorsiflexion to the great toes intact bilateral lower extremities, no saddle anesthesia Psychologic: Affect normal, judgement normal, mood normal. [] Current Patient Data: Vital Signs: Vital Signs Date Time Temp Pulse Resp B/P (MAP) Pulse Ox O2 Delivery O2 Flow Rate FiO2 10/17/19 03:19 20 95 Room Air 10/17/19 02:55 98.3 86 198/87 (124) 98.3 EKG: EKG: [] Radiology/Procedures: Radiology/Procedures: [][facility] [address] [place] [address] IMAGING REPORT Signed PATIENT: RICKY BATISTA ACCOUNT: [id number] : 1950 LOCATION: ER AGE: 69 SEX: F EXAM STATUS: REG ER ORD. PHYSICIAN: GEOVANNA DIAS MD REASON: PAIN PROCEDURE: LUMBAR SPINE 2-3V INDICATION: Hip and back pain COMPARISON: April 2018 IMPRESSION: Lumbar spine: 3 views obtained. Severe calcific atherosclerosis. Degenerative changes of the spine with osteophyte formation at the vertebral body endplates as well as facet hypertrophy. No definite acute fracture or dislocation. Right hip: 3 views obtained. No definite acute fracture or dislocation. Electronically signed by: Nelida Hough MD (10/17/2019 3:20 AM) [id number] DICTATED and SIGNED BY: NELIDA HOUGH MD DATE: 10/17/19319 [facility] [address] [place] [address] IMAGING REPORT Signed PATIENT: RICKY BATISTA ACCOUNT: [id number] : 1950 LOCATION: ER AGE: 69 SEX: F EXAM STATUS: REG ER ORD. PHYSICIAN: GEOVANNA DIAS MD REASON: PAIN PROCEDURE: HIP RIGHT 2V WITH PELVIS INDICATION: Hip and back pain COMPARISON: April 2018 IMPRESSION: Lumbar spine: 3 views obtained. Severe calcific atherosclerosis. Degenerative changes of the spine with osteophyte formation at the vertebral body endplates as well as facet hypertrophy. No definite acute fracture or dislocation. Right hip: 3 views obtained. No definite acute fracture or dislocation. Electronically signed by: Nelida Hough MD (10/17/2019 3:20 AM) [id number] DICTATED and SIGNED BY: NELIDA OHUGH MD DATE: 10/17/19319 Course & Med Decision Making: Course & Med Decision Making Pertinent Labs and Imaging studies reviewed. (See chart for details) [] Patient resting comfortably on reassessment. No acute distress. No signs of cauda equina. Dragon Disclaimer: Dragon Disclaimer: This electronic medical record was generated, in whole or in part, using a voice recognition dictation system. Departure Departure Impression: Primary Impression: Right hip pain Additional Impression: Lumbar back pain Disposition: HOME, SELF-CARE Condition: STABLE Referrals: CHRISTOPH LE MD (PCP) 2-3 days Patient Instructions: Arthritis, Degenerative-Brief Additional Instructions: EMERGENCY DEPARTMENT GENERAL DISCHARGE INSTRUCTIONS THANK YOU for coming to [facility] Emergency Department (ED) today and trusting us with your care. We trust that you had a positive experience in our Emergency Department. If you wish to speak to the department Management you can contact the education department chair at . YOUR FOLLOW UP INSTRUCTIONS ARE FOLLOWS: Do you have a private doctor? If you do not have a private doctor, please ask for a resource list of physicians or clinics that may be able to assist you with follow up care. The Emergency Physician has interpreted your x-rays. The X-ray specialist will also review them. If there is a change in the findings you will be notified in 48 hours when at all possible. A lab test or lab culture may have been done, your results will be reviewed and you will be notified if you need a change in treatment. ADDITIONAL INSTRUCTIONS AND INFORMATION Your care today has been supervised by a physician who is specially trained in emergency care. Many problems require more than one evaluation for a complete diagnosis and treatment. We recommend that you schedule your follow up appointment as recommended to ensure complete treatment of your illness or injury. If you are unable to obtain follow up care and continue to have a problem, or if your condition worsens we recommend that you return to the ED. We are not able to safely determine your condition over the phone nor are we able to give sound medical advice over the phone. For these safety reasons, if you call for medical advice we will ask you to come to the ED for further evaluation If you have any questions regarding these discharge instructions please call the ED at . SAFETY INFORMATION In the interest of safety, wellness, and injury prevention; we encourage you to wear your seatbelt, if you smoke; quit smoking, and we encourage your family to use protective helmet for bicycling and other sporting events that present an increased risk for head injury. IF YOUR SYMPTOMS WORSEN OR NEW SYMPTOMS DEVELOP, OR YOU HAVE CONCERNS ABOUT YOUR CONDITION; OR IF YOUR CONDITION WORSENS WHILE YOU ARE WAITING FOR YOUR FOLLOW UP APPOINTMENT; EITHER CONTACT YOUR PRIMARY CARE DOCTOR, THE PHYSICIAN WHOSE NAME AND NUMBER YOU WERE GIVEN, OR RETURN TO THE ED IMMEDIATELY. Justicifation of Admission Dx: Justifications for Admission: Justification of Admission Dx: No GEOVANNA DIAS MD Oct 17, 2019 03:40
== END 2019-10-17 04:15 | disposition home or self-care (01) ==
LOC: ER 02:09
DX: M25.551 Pain in right hip (principal); M54.5 Low back pain; M19.90 Unspecified osteoarthritis, unspecified site; E11.9 Type 2 diabetes mellitus without complications; I10 Essential (primary) hypertension; F17.200 Nicotine dependence, unspecified, uncomplicated; G89.29 Other chronic pain; Z90.49 Acquired absence of other specified parts of digestive tract; Z90.710 Acquired absence of both cervix and uterus; Z90.89 Acquired absence of other organs; Z88.8 Allergy status to other drugs, medicaments and biological substances
CPT/HCPCS: 72100; 73502; 96372; 99284; J1170

== ENCOUNTER 2019-11-07 13:37 | Inpatient (IN) | payer OTHER ==
[~2019-11-07] VITALS: Ht 162.6 cm; Wt 87.1 kg
[2019-11-07 14:34] VITALS: BP 162/62
[2019-11-07] MEDS ORDERED: HYDR-2769 PO (14:53)
[2019-11-07] MEDS ORDERED: HYDROmorphone 2 MG/ML VIAL IVP PRN (16:15)
[2019-11-07] MEDS ORDERED: NON FORMULARY ITEM (Albuterol Sulfate (Ventolin Hfa Inhaler) 18 GM) INH PRN (16:15)
[2019-11-07] MEDS ORDERED: ALBUTEROL SULFATE 2.5 MG/3 ML NEBU. NEB PRN (16:15)
[2019-11-07] MEDS: GABAPENTIN 300 MG CAPSULE. PO SCH ×2 (16:30→21:17)
[2019-11-07] MEDS ORDERED: MECLIZINE HCL 12.5 MG TABLET. PO PRN (16:30)
[2019-11-07] MEDS: CALCIUM CARBONATE 500 MG TABLET PO SCH (18:00)
[2019-11-07 18:55] LABS: BASO # 0.1 x10^3/uL (0.0-0.2); BASO % 1 % (0-3); EOS # 0.2 x10^3/uL (0.0-0.7); EOS % 3 % (0-3); HEMATOCRIT 40.5 % (36.0-47.0); HEMOGLOBIN 13.4 g/dL (12.0-15.5); LYMPH # 1.2 x10^3/uL (1.0-4.8); LYMPH % 15 % (24-48); MEAN CORPUSCULAR HEMOGLOBIN 30 pg (25-35); MEAN CORPUSCULAR HGB CONC 33 g/dL (31-37); MEAN CORPUSCULAR VOLUME 89 fL (79-100); MONO # 0.7 x10^3/uL (0.0-1.1); MONO % 8 % (0-9); NEUT # 6.4 x10^3/uL (1.8-7.7); NEUT % 74 % (31-73); PLATELET COUNT 285 x10^3/uL (140-400); RED BLOOD COUNT 4.53 x10^6/uL (3.50-5.40); RED CELL DISTRIBUTION WIDTH 14.4 % (11.5-14.5); WHITE BLOOD COUNT 8.6 x10^3/uL (4.0-11.0)
[2019-11-07 19:00] VITALS: BP 165/60
[2019-11-07 19:05] LABS: PROTHROMBIN TIME PATIENT 12.3 SEC (11.7-14.0)
[2019-11-07 19:26] LABS: ALBUMIN 3.1 g/dL (3.4-5.0); ALBUMIN/GLOBULIN RATIO 0.8 (1.0-1.7); CALCIUM 8.7 mg/dL (8.5-10.1); CREATININE 0.8 mg/dL (0.6-1.0); GFR 71.3; POTASSIUM 3.8 mmol/L (3.5-5.1); TOTAL BILIRUBIN 1.2 mg/dL (0.2-1.0); TOTAL PROTEIN 6.8 g/dL (6.4-8.2)
[2019-11-07 19:30] LABS: CHOLESTEROL/HDL RATIO 4.2
[2019-11-07] MEDS: DORZOLAMIDE 2% OPHTH SOLUTION 10ML BOTTLE. OD SCH (21:17)
[2019-11-07] MEDS: TIMOLOL 0.5% OPHTH SOLUTION 5ML BOTTLE. OD SCH (21:17)
[2019-11-07] MEDS: AMITRIPTYLINE HCL 10 MG TABLET. PO SCH (21:17)
[2019-11-07] MEDS: LATANOPROST 0.005% OPHTH SOLUTION 2.5ML BOTTLE. OD SCH (21:18)
[2019-11-07] MEDS: BRIMONIDINE 0.2% OPHTH SOLUTION 5ML BOTTLE. OD SCH (21:18)
[2019-11-07 21:33] LABS: BILIRUBIN,URINE NEGATIVE (NEG); CLARITY,URINE CLEAR; COLOR,URINE YELLOW; NITRITE,URINE NEGATIVE (NEG); PH,URINE 7.5 (<5.0-8.0); PROTEIN,URINE NEGATIVE (NEG-TRACE)
[2019-11-07 21:38] LABS: BACTERIA,URINE FEW /HPF (0-FEW); SQUAMOUS EPITHELIAL CELL,UR FEW /LPF
[2019-11-07 21:39] LABS: RBC,URINE 0 /HPF (0-2); WBC,URINE RARE /HPF (0-4)
[2019-11-07 23:00] VITALS: BP 169/78
[2019-11-08 03:00] VITALS: BP 196/76
[2019-11-08] MEDS: cloNIDine HCL 0.1 MG TABLET PO PRN (04:29)
[2019-11-08 07:00] VITALS: BP 191/78
--- NOTE | 2019-11-08 08:49 | PDOC ---
Provider Note Provider Note Pt seen .H&Pdictated.#[id number]. Lung mass , rt , T 10 compression fracture, admitted for pain. CHRISTOPH LE MD Nov 08, 2019 08:49
[2019-11-08] MEDS: MULTIVITAMIN with MINERAL TABLET. PO SCH (09:38)
[2019-11-08] MEDS: DORZOLAMIDE 2% OPHTH SOLUTION 10ML BOTTLE. OD SCH ×2 (09:38→21:36)
[2019-11-08] MEDS: CALCIUM CARBONATE 500 MG TABLET PO SCH (09:38)
[2019-11-08] MEDS: GABAPENTIN 300 MG CAPSULE. PO SCH ×3 (09:38→21:35)
[2019-11-08] MEDS: HYDROcodone/APAP 10/325 1 TAB TABLET PO PRN ×2 (09:38→21:36)
[2019-11-08] MEDS: BRIMONIDINE 0.2% OPHTH SOLUTION 5ML BOTTLE. OD SCH (09:38)
--- NOTE | 2019-11-08 09:38 | RAD ---
EXAM: CT Chest without IV contrast INDICATION: lung mass f/u TECHNIQUE: Multi-detector row CT images were acquired from the thoracic inlet through the upper abdomen without the use of IV contrast. Sagittal and coronal images were acquired from the transaxial data. All CT scans performed at this facility utilize dose optimization techniques as appropriate to the exam, including the following: Automated exposure control and adjustment of the mA and/or KV according to patient size (this includes techniques or standardized protocols for targeted exams where dose is indication/reason for exam). COMPARISON: Noncontrast head CT 08/02/2018 FINDINGS: The absence of IV contrast limits evaluation of soft tissue pathology. CARDIOVASCULAR: Scattered coronary calcifications. Normal heart size. Normal thoracic aortic caliber with the ascending aorta measuring 3.8 cm. Normal variant arch origin of the left vertebral artery. MEDIASTINUM & SOPHY: No adenopathy or masses. There are calcified mediastinal and right hilar lymph nodes. LUNGS: There has been interval further increase in size of the right upper lobe perihilar lung mass. It now measures 3.0 x 2.4 x 2.1 cm in mediolateral by anteroposterior by craniocaudal dimensions and is now contiguous with the anterior segment right upper lobe bronchus. There is a new anterior satellite nodule measuring 6 mm, as visualized on axial image 25 of series 2. No change in the 8 mm groundglass opacity in the lateral segment right middle lobe (image 36 of series 2), as well as in scattered, smaller groundglass opacities bilaterally (such as an ill-defined 7 mm opacity in the left upper lobe on image 16 of series 2). There is mild background centrilobular pattern emphysema present. No parenchymal consolidation. Stable calcified granuloma in the posterior right lower lobe PLEURAL SPACE: No pleural effusions or pneumothorax. OSSEOUS & SOFT TISSUE: Mild anterior wedge compression deformity at T10 is stable. An intramuscular lipoma in the right chest wall musculature, likely the serratus anterior is present. This measures approximately 8.5 x 7.1 x 6.2 cm. ABDOMEN: Cholecystectomy, left superior pole left renal lithiasis and atherosclerotic calcification in the abdominal aorta are noted. IMPRESSION: Enlarging right upper lobe lung mass, now abutting the right hilum and measuring 3.0 x 2.4 x 2.1 cm. EXAM: CT Thoracic Spine without IV contrast INDICATION: lung mass f/u TECHNIQUE: Multi-detector row CT images were obtained through the thoracic spine without the use of IV contrast. Post-processing sagittal and coronal reconstructed images were obtained for interpretation. All CT scans performed at this facility utilize dose optimization techniques as appropriate to the exam, including the following: Automated exposure control and adjustment of the mA and/or KV according to patient size (this includes techniques or standardized protocols for targeted exams where dose is indication/reason for exam). COMPARISON: Noncontrast chest CT of 08/02/2018 FINDINGS: ALIGNMENT: Alignment is within normal limits. OSSEOUS: No acute fracture or bone destruction. There is subtle anterior wedge compression deformity at T10 with mild associated endplate sclerosis, similar to prior. There is increasing sclerosis at the anterior superior endplate of T11 with more apparent anterior osteophytic spurring. DISC SPACES: Multilevel disc degenerative change with endplate osteophytic spurring and mild multilevel narrowing is similar to prior. FACET JOINTS: Unremarkable. SPINAL CANAL: Unremarkable. NEUROFORAMINA: Unremarkable. SOFT TISSUES: Unremarkable. IMPRESSION: Slight interval progression in disc degenerative change at T10-T11 with mild chronic anterior wedge compression deformity at T10 noted. No acute fracture or aggressive appearing bony lesions. EXAM: CT Lumbar Spine without IV contrast INDICATION: Reason: lung mass f/u / Spl. Instructions: / History: TECHNIQUE: Multi-detector row CT images were obtained through the lumbar spine without the use of IV contrast. Post-processing sagittal and coronal reconstructed images were obtained for interpretation. All CT scans performed at this facility utilize dose optimization techniques as appropriate to the exam, including the following: Automated exposure control and adjustment of the mA and/or KV according to patient size (this includes techniques or standardized protocols for targeted exams where dose is indication/reason for exam). COMPARISON: L-spine x-ray series of 10/17/2019, PET CT of 05/04/2018. FINDINGS: The lowest fully formed disc is referred to as the L5-S1 level. ALIGNMENT: Alignment is within normal limits. OSSEOUS: Bones are demineralized. No acute fracture is appreciated however gas in the superior endplate of L5 along with subtle concave deformity is present. Similar superior endplate concave deformity is present at L3, stable from prior. Disease DISC SPACES: Narrowed at multiple levels but most conspicuously at L5-S1. FACET JOINTS: Unremarkable. SPINAL CANAL: Unremarkable. NEUROFORAMINA: Mild narrowing at multiple levels bilaterally. No high-grade stenosis. SOFT TISSUES: Calcifications in the abdominal aorta are present. Superior pole left renal 7 mm calyceal calcification. Colonic diverticuli also noted. 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 No acute fracture, malalignment or aggressive appearing osseous lesions the lumbar spine noted. Electronically signed by: Renzo Eduardo MD (11/08/2019 9:36 AM) [id number]
[2019-11-08] MEDS: LATANOPROST 0.005% OPHTH SOLUTION 2.5ML BOTTLE. OD SCH ×2 (09:39→21:36)
[2019-11-08] MEDS: TIMOLOL 0.5% OPHTH SOLUTION 5ML BOTTLE. OD SCH (09:39)
--- NOTE | 2019-11-08 10:15 | NUR ---
SW following. Discussed with RN, pt from home with , room air, cardiac diet. PT/OT ordered. Pt went to [facility] for SNU in 2018. SW will continue to follow.
--- NOTE | 2019-11-08 10:32 | CONS ---
DATE OF CONSULTATION: 11/08/2019 ATTENDING PHYSICIAN: Mika Serna MD REASON FOR CONSULTATION: The patient was seen at the request of Dr. Serna for rehab evaluation. HISTORY OF PRESENT ILLNESS: This is a 69-year-old female with upper and lower back pain since September without any specific injury. She denies any radiation of pain to the extremities or any trouble with tingling and numbness sensation in the extremities or trouble with bowel or bladder control. The patient has been using ice packs and massage at home and taking medication without much help, so she was admitted yesterday and had a CT scan of the chest, thoracic and lumbar spine, which revealed right lung mass and T10 vertebral body compression fracture and also I can see some degenerative disk disease of lower thoracic vertebrae and lumbar vertebrae with associated mild compression deformity of L5 vertebral body with some degree of spondylolysis of L4 on L5. The patient is a smoker. She lives with her . She had a walker at home. The patient had no stairs for her to manage at home. PHYSICAL EXAMINATION: Physical exam today revealed a middle-aged female. She is alert, oriented to time, place, person and circumstance and follows commands appropriately, moves all 4 extremities voluntarily where she had 4+/5 grade muscle strength and deep tendon reflexes are 1 to 2+ and symmetrical and she had equal perception of touch and pinprick sensation bilaterally. She had tenderness to palpation over cervical paraspinal and posterior shoulder girdle muscles and over lower lumbar paraspinal muscles extending over to sacroiliac joint area and trochanteric bursa bilaterally. No significant tenderness to palpation over thoracic spine area was noted. The patient had crepitus on range of motion of her knee joint with mild knee joint effusion and she had pain-free range of motion of both hip joints. She is independent with bed mobility and transfers and up walking with somewhat wide-based gait. She had painful limited movements of her lumbar spine. Straight leg raising test is negative bilaterally. Her skin is intact at this time. ASSESSMENT: A middle-aged female with chronic cervical paraspinal and posterior shoulder girdle muscle strain and chronic lower back pain from degenerative disk disease of lumbar vertebrae with associated bilateral trochanteric bursitis. No clinical evidence of cervical or thoracic or lumbar radiculopathy. CT scan evidence of T10 and L5 vertebral body compression fracture, but she is not having any significant discomfort at the thoracic level. She also had degenerative joint disease of both knees and recently diagnosed right lung mass. RECOMMENDATIONS: I have reviewed with her home program of physical modalities, trigger point massage and relax, stretching exercises to her neck and lower back area and reviewed with her proper body mechanics and isometric strengthening exercise to her lower extremity muscle groups, to consider injecting painful sacroiliac joints when her lung mass lesion was clarified and also to consider lumbar corset for use while up. Dr. Serna, I appreciate asking me to participate in the care of this interesting patient. I will be glad to follow her with you as needed for her rehabilitation. ADRIÁN MARTINEZ MD DR: CHEMA/genesis JOB#: [id number] / [id number]
[2019-11-08 11:00] VITALS: BP 174/64
[2019-11-08] MEDS: HYDROmorphone 2 MG/ML VIAL IM PRN ×2 (11:24→17:54)
--- NOTE | 2019-11-08 12:11 | HP ---
ADMIT DATE: 11/07/2019 MEDICAL HISTORY AND PHYSICAL REASON FOR ADMISSION TO THE HOSPITAL: Pain, not able to control as outpatient. The patient has a lung mass as well as T10 compression fractures. HISTORY OF PRESENT ILLNESS: The patient is a 69-year-old female patient who was found to have right upper lung mass and the patient had a PET scan, which shows a T10 compression fracture and in the past the patient and decided not to do any other investigation at that time, wants to follow periodically. The patient had CT scans for last 1-2 years and now the right upper lung mass is increasing in size and family is agreeable to get some consultation and opinion. PAST MEDICAL HISTORY: She has a history of previous stroke, brain aneurysm, chronic COPD, cognitive impairment, borderline diabetes, hypertension. She had multiple abdominal surgeries for infected abdominal mesh, which was removed finally in 2018. PAST SURGICAL HISTORY: As mentioned above, had multiple abdominal surgeries, hernia repair and infected mesh which was removed and she also had a surgery, hysterectomy, subdural hematoma surgery. ALLERGIES: None. MEDICATIONS: Albuterol, amitriptyline, drops for glaucoma. She also has pain pill, hydrocodone. SOCIAL HISTORY: Smokes 1 pack for 30 years, still smokes. Lives with her . FAMILY HISTORY: Hypertension. REVIEW OF SYMPTOMS: Complains of pain all over the back. No bladder or stool incontinence. PHYSICAL EXAMINATION: GENERAL: The patient is chronically ill looking. VITAL SIGNS: At the time of admission shows temperature 98, pulse 83, respirations 19, blood pressure 190/78, 92 on room air. HEENT: Head is atraumatic. Pupils equal. Oral cavity, no congestion. NECK: Supple. Thyroid not enlarged. JVD not elevated. CHEST: Symmetrical. CARDIOVASCULAR: S1, S2. LUNGS: Clear. ABDOMEN: Soft. Had a surgery in the midline, previous multiple surgeries. EXTERNAL GENITALIA: No Fuentes. RECTAL: Deferred. EXTREMITIES: No calf tenderness or edema. The patient is ambulating with a cane. On examination of the spine, no bony tenderness. LABORATORY DATA: Shows a white count 8, hemoglobin 13, platelets 285. INR 1.0. Electrolytes showed sodium 149, potassium 3.8, chloride 113, bicarbonate 28, BUN 23, creatinine 0.8, glucose 145. LFTs were normal. CT chest shows enlarging right upper lobe mass measuring 3 x 2.[address] of the thoracic spine, wedge compression at T10, stable from [address] of the lumbar spine, osteopenia at L3 and the patient had a PET scan in 04/2018, which shows hypermetabolic in the right upper lobe, which is 2 cm and also T10 compression fractures. FINAL IMPRESSION: 1. Right upper lung mass with progression, highly suspicious for primary lung cancer. 2. T10 compression fracture. 3. Hypertension. 4. History of intracranial bleed from aneurysm, cognitive impairment. 5. Multiple abdominal surgeries for ventral hernia. PLAN: At this time, admitted for pain control, Lortab is not helping, given Dilaudid. Rehab consult was done. In view of increasing in size of the lung mass, I discussed with the patient's . In the past, he did not want anything done, further investigation and now is agreeable to have consultation with Pulmonary and Oncology and further recommendations. We will put Oncology, Pulmonary consult and see how she does. CHRISTOPH LE MD DR: PURVI/genesis JOB#: [id number] / [id number]
--- NOTE | 2019-11-08 12:53 | CONS ---
DATE OF CONSULTATION: PULMONARY CONSULTATION ATTENDING PHYSICIAN: Mika Serna MD REASON FOR CONSULTATION: Enlarging lung mass. HISTORY OF PRESENT ILLNESS: The patient is a 69-year-old female who has multiple other chronic medical problems. She has been followed by my partner for a lung mass, which was initially seen in 2018. At that time, it was a 1.6 cm on 12/23/2017 CT. Per discussion with her with Dr. Maciel, they wanted to do no intervention and only wanted to follow up. The patient then missed her appointments on followup visits. Dr. Maciel spoke to them on the phone regarding increase in the size of the right upper lobe mass. The patient's did not followed up and was indecisive about any workup. The patient had a PET scan done on 04/2018 and the lesion was hypermetabolic and was enlarging as well at that time was 2.1 cm in size with an SUV of 3.8. The patient had another CT chest on this morning, which was reviewed by me. The mass is now increased further. It measures 3 x 2.4 cm in size. The patient also had a 8 mm ground glass opacity in the right middle lobe and another 7 mm opacity in the left upper lobe. There was an anterior wedge compression deformity at T10 level. I have been asked to see her for further evaluation. At this point, I have spoken to the patient about this enlarging mass and discussed the option of CT-guided biopsy. I also would like to recommend PFTs to assess the severity of lung disease. She again decides that she wants to talk to her . PAST MEDICAL HISTORY: Significant for history of COPD, ongoing tobacco use for 50 years. History of chronic back pain. History of chronic cervical paraspinal and posterior shoulder girdle muscle strain. PAST SURGICAL HISTORY: No recent surgeries. ALLERGIES: None. MEDICATIONS: Reviewed as listed in the [facility]. REVIEW OF SYSTEMS: Twelve-point system obtained. Pertinent positives discussed in my history of present illness, otherwise noncontributory. All systems that were negative were reviewed as well. SOCIAL HISTORY: Tobacco use for 50 years and still smokes. PHYSICAL EXAMINATION: VITAL SIGNS: Reviewed. NECK: Supple. LUNGS: Clear. CARDIOVASCULAR: With a regular rate. ABDOMEN: Soft, obese. EXTREMITIES: With no pitting edema. LABORATORY DATA: Reviewed. White cell count 8.6, hemoglobin 13.4, platelets are 285. IMPRESSION: 1. Enlarging right upper lobe mass. This was 1.6 cm in size in the right upper lobe in 2018 and now it is 3 cm in size. It was hypermetabolic based on the PET scan and strongly favoring lung malignancy. She may have tiny metastasis within the lung on the right and left side, but it is difficult to exclude. I did spoke to the patient again regarding the need for biopsy if she wants any form of treatment. She and her have been reluctant to undergo any invasive testing in the past and has also not been compliant with followup visits with Dr. Maciel.The patient wants to wait and talk to her before making any decision. 2.Fifty years of tobaccoism, could be severe COPD. RECOMMENDATIONS: 1. Discussed with the patient as above. I am waiting on her decision to pursue for any invasive procedure such as CT-guided biopsy. will obtain PFTs to assess severity of lung disease. 2. If the patient agrees to pursue then she will need a CT-guided biopsy. I doubt that she has any endobronchial lesion. 3. Add bronchodilators. 4. Discussed with Dr. Serna. We will follow along with you. Addend: d/w who discussed with his and agrees to persue with ct guided lung bx. ARACELI MICHAEL MD DR: SAMMY/genesis JOB#: [id number] / [id number] KATHRIN
--- NOTE | 2019-11-08 13:46 | PDOC2 ---
CONSULT Date of Consult Date of Consult DATE: 11/08/19 TIME: 13:34 Reason for Consult Reason for Consult: Lung mass Referring Physician Referring Physician: Dr. Serna Identification/Chief Complaint Chief Complaint Back pain and shortness of breath Source Source: Chart review, Patient History of Present Illness Reason for Visit: Flora uBtts is a 69-year-old female with history of tobacco abuse who has been admitted to the hospital for further evaluation of a lung mass. She reports having had dyspnea on exertion and at rest for the past 2 years. She states that she wanted to have it evaluated further since it has been persistent and she feels that she is getting older. She denies associated cough or hemoptysis or weight loss. She does report back pain that started approximately a few weeks ago. She denies weakness in the legs, loss of bowel/bladder control or loss of sensation in the lower extremities. She follows with Dr. Maciel at the pulmonology clinic at [facility]. Was seen by his partner Dr. Hooper today in consultation. She was found to have lung mass as early as 2017 when it was first identified on a CT chest on 12/23/2017. Since then, the lung mass has continued to increase in size and was PET avid on a PET/CT obtained in April 2018. Despite multiple discussions regarding the need for further diagnostic evaluation and treatment of this finding, patient and her spouse prefer to not pursue any intervention and wanted to continue with observation. She received repeat CT chest during this hospitalization which s howed continued increase of this lung mass which now measures 3 x 2.4 cm in size. An associated satellite lesion in the right middle lobe was seen measuring 8 mm. She was found to have a wedge compression deformity at T10. Oncology consultation has been sought to direct further evaluation and management of the suspected lung cancer. Flora reports that she is interested in seeking further testing and potentially, treatment for these findings. She is aware of her preliminary diagnosis of lung cancer. Past Medical History CENTRAL NERVOUS SYSTEM: Other GI: GERD Hepatobiliary: No pertinent hx Psych: No pertinent hx Musculoskeletal: Osteoarthritis Rheumatologic: No pertinent hx Infectious disease: No pertinent hx Renal/: No pertinent hx Endocrine: Diabetes Past Surgical History Past Surgical History: Appendectomy, Cholecystectomy, Other Family History Family History: No Significant Social History ALCOHOL: rare Lives: with Family Current Medications Current Medications Current Medications Albuterol Sulfate (Ventolin Neb Soln) 2.5 mg PRN QID PRN NEB wheezing; Start 11/07/19 at 16:15 Amitriptyline HCl (Elavil) 10 mg QHS PO Last administered on 11/07/19 21:17; Start 11/07/19 at 21:00 Clonidine HCl (Catapres) 0.1 mg PRN TID PRN PO HYPERTENSION Last administered on 11/08/19 04:29; Start 11/07/19 at 16:15 Gabapentin (Neurontin) 300 mg TID PO Last administered on 11/08/19 09:38; Start 11/07/19 at 16:30 Acetaminophen/ Hydrocodone Bitart (Lortab 10/325) 1 tab PRN Q8HRS PRN PO MODERATE PAIN Last administered on 11/08/19 09:38; Start 11/07/19 at 16:15 Non-Formulary Medication (Albuterol Sulfate (Ventolin Hfa Inhaler)) 18 gm PRN PRN INH SHORTNESS OF BREATH; Start 11/07/19 at 16:15; Status UNV Latanoprost (Xalatan) 1 drop BID OD Last administered on 11/08/19 09:39; Start 11/07/19 at 21:00 Brimonidine Tartrate (Alphagan) 1 drop BID OD Last administered on 11/08/19 09:38; Start 11/07/19 at 21:00 Dorzolamide HCl (Trusopt) 1 drop BID OD Last administered on 11/08/19 09:38; Start 11/07/19 at 21:00 Calcium Carbonate/ Glycine (Oscal) 500 mg DAILY PO Last administered on 11/08/19 09:38; Start 11/07/19 at 18:00 Meclizine HCl (Antivert) 25 mg PRN TID PRN PO DIZZINESS; Start 11/07/19 at 16:30 Multivitamins (Thera M Plus) 1 tab DAILY PO Last administered on 11/08/19 09:38; Start 11/08/19 at 09:00 Hydromorphone HCl (Dilaudid) 1 mg PRN Q4HRS PRN IVP MODERATE TO SEVERE PAIN; Start 11/07/19 at 16:15 Timolol Maleate (Timoptic 0.5% [facility]) 1 drop BID OD Last administered on 11/08/19at 09:39; Start 11/07/19 at 21:00 Hydromorphone HCl (Dilaudid) 1 mg PRN Q4HRS PRN IM PAIN Last administered on 11/08/19at 11:24; Start 11/08/19 at 11:15 Active Scripts Active Proair Hfa (Albuterol Sulfate) 8.5 Gm Hfa.aer.ad 2 Puff IH PRN Q4-6HRS PRN 21 Days Reported Hydrocodone-Apap 10-325 (Hydrocodone Bit/Acetaminophen) 1 Tab Tablet 1 Tab PO PRN Q8HRS PRN Proctocream-Hc (Hydrocortisone) 30 Gm Cream..g. 1 Laly TP BID Gabapentin (Gabapentin) 300 Mg Capsule 300 Mg PO TID Clonidine Hcl 0.1 Mg Tablet 1 Tab PO PRN TID PRN Azopt (Brinzolamide) 10 Ml Drops.susp 1 Drop OD BID Amitriptyline Hcl 10 Mg Tablet 10 Mg PO QHS Calcium (Calcium Carbonate) 600 Mg Tablet 600 Mg PO DAILY Multivitamins (Multivitamin) 1 Each Capsule 1 Each PO DAILY Meclizine Hcl 25 Mg Tablet 1 Tab PO PRN TID PRN Ventolin Hfa Inhaler (Albuterol Sulfate) 18 Gm Hfa.aer.ad 18 Gm INH PRN PRN Lumigan (Bimatoprost) 2.5 Ml Drops 2.5 Ml OD BID Combigan Eye Drops (Brimonidine Tartrate/Timolol) 5 Ml Drops 5 Ml OD BID Allergies Allergies: Coded Allergies: I S O L A T I O N *CONTACT* (Verified Allergy, Unknown, 11/15/17) mrsa No Known Medication Allergies (Verified Allergy, Unknown, 11/15/17) ROS General: No: Chills, Night Sweats PSYCHOLOGICAL ROS: No: Anxiety, Behavioral Disorder Eyes: No Blurry vision, No Decreased vision HEENT: No: Heacaches, Visual Changes ALLERGY AND IMMUNOLOGY: No: Nasal Congestion, Post Nasal Drip Hematological and Lymphatic: No: Brusing, Night Sweats ENDOCRINE: YES: Malaise/lethargy Breast: No New/Changing Breast Lumps Respiratory: YES: Cough, Orthopnea, Shortness of breath; No: Pleuritic Pain, SOB with excertion, Sputum Changes Cardiovascular: No Chest Pain, No Palpitations Gastrointestinal: Yes Abdominal Pain; No Nausea, No Vomiting, No Diarrhea, No Constipation, No Melena, No Hematochezia Genitourinary: No Dysuria, No Flank Pain Musculoskeletal: No Joint Pain Neurological: No Bowel/Bladder ControlChng, No Confusion Skin: No Dry Skin Physical Exam General: Alert, Oriented X3 HEENT: Atraumatic, PERRLA Lungs: Clear to auscultation Heart: Regular rate, Normal S1, Normal S2 Abdomen: Normal bowel sounds, Soft Extremities: No clubbing, No cyanosis Skin: No rashes Neuro: Normal speech Psych/Mental Status: Mental status NL MUSCULOSKELETAL: No swelling Vitals VITALS Vital Signs Date Time Temp Pulse Resp B/P (MAP) Pulse Ox O2 Delivery O2 Flow Rate FiO2 11/08/19 11:55 Room Air 11/08/19 11:00 98.3 77 18 174/64 (100) 93 98.3 Labs Labs Laboratory Tests Test 11/07/19 18:10 11/07/19 20:39 White Blood Count 8.6 x10^3/uL (4.0-11.0) Red Blood Count 4.53 x10^6/uL (3.50-5.40) Hemoglobin 13.4 g/dL (12.0-15.5) Hematocrit 40.5 % (36.0-47.0) Mean Corpuscular Volume 89 fL (79-100) Mean Corpuscular Hemoglobin 30 pg (25-35) Mean Corpuscular Hemoglobin Concent 33 g/dL (31-37) Red Cell Distribution Width 14.4 % (11.5-14.5) Platelet Count 285 x10^3/uL (140-400) Neutrophils (%) (Auto) 74 % (31-73) Lymphocytes (%) (Auto) 15 % (24-48) Monocytes (%) (Auto) 8 % (0-9) Eosinophils (%) (Auto) 3 % (0-3) Basophils (%) (Auto) 1 % (0-3) Neutrophils # (Auto) 6.4 x10^3/uL (1.8-7.7) Lymphocytes # (Auto) 1.2 x10^3/uL (1.0-4.8) Monocytes # (Auto) 0.7 x10^3/uL (0.0-1.1) Eosinophils # (Auto) 0.2 x10^3/uL (0.0-0.7) Basophils # (Auto) 0.1 x10^3/uL (0.0-0.2) Prothrombin Time 12.3 SEC (11.7-14.0) Prothromb Time International Ratio 1.0 (0.8-1.1) Sodium Level 149 mmol/L (136-145) Potassium Level 3.8 mmol/L (3.5-5.1) Chloride Level 113 mmol/L (98-107) Carbon Dioxide Level 28 mmol/L (21-32) Anion Gap 8 (6-14) Blood Urea Nitrogen 23 mg/dL (7-20) Creatinine 0.8 mg/dL (0.6-1.0) Estimated GFR (Cockcroft-Gault) 71.3 BUN/Creatinine Ratio 29 (6-20) Glucose Level 145 mg/dL (70-99) Calcium Level 8.7 mg/dL (8.5-10.1) Total Bilirubin 1.2 mg/dL (0.2-1.0) Aspartate Amino Transf (AST/SGOT) 14 U/L (15-37) Alanine Aminotransferase (ALT/SGPT) 16 U/L (14-59) Alkaline Phosphatase 79 U/L (46-116) Total Protein 6.8 g/dL (6.4-8.2) Albumin 3.1 g/dL (3.4-5.0) Albumin/Globulin Ratio 0.8 (1.0-1.7) Triglycerides Level 140 mg/dL (0-150) Cholesterol Level 155 mg/dL (0-200) LDL Cholesterol, Calculated 90 mg/dL (0-100) VLDL Cholesterol, Calculated 28 mg/dL (0-40) Non-HDL Cholesterol Calculated 118 mg/dL (0-129) HDL Cholesterol 37 mg/dL (40-60) Cholesterol/HDL Ratio 4.2 Urine Collection Type Unknown Urine Color Yellow Urine Clarity Clear Urine pH 7.5 (<5.0-8.0) Urine Specific [place] 1.020 (1.000-1.030) Urine Protein Negative mg/dL (NEG-TRACE) Urine Glucose (UA) Negative mg/dL (NEG) Urine Ketones (Stick) Negative mg/dL (NEG) Urine Blood Negative (NEG) Urine Nitrite Negative (NEG) Urine Bilirubin Negative (NEG) Urine Urobilinogen Dipstick 2.0 mg/dL (0.2 mg/dL) Urine Leukocyte Esterase Negative (NEG) Urine RBC 0 /HPF (0-2) Urine WBC Rare /HPF (0-4) Urine Squamous Epithelial Cells Few /LPF Urine Bacteria Few /HPF (0-FEW) Laboratory Tests Test 11/07/19 18:10 11/07/19 20:39 White Blood Count 8.6 x10^3/uL (4.0-11.0) Red Blood Count 4.53 x10^6/uL (3.50-5.40) Hemoglobin 13.4 g/dL (12.0-15.5) Hematocrit 40.5 % (36.0-47.0) Mean Corpuscular Volume 89 fL (79-100) Mean Corpuscular Hemoglobin 30 pg (25-35) Mean Corpuscular Hemoglobin Concent 33 g/dL (31-37) Red Cell Distribution Width 14.4 % (11.5-14.5) Platelet Count 285 x10^3/uL (140-400) Neutrophils (%) (Auto) 74 % (31-73) Lymphocytes (%) (Auto) 15 % (24-48) Monocytes (%) (Auto) 8 % (0-9) Eosinophils (%) (Auto) 3 % (0-3) Basophils (%) (Auto) 1 % (0-3) Neutrophils # (Auto) 6.4 x10^3/uL (1.8-7.7) Lymphocytes # (Auto) 1.2 x10^3/uL (1.0-4.8) Monocytes # (Auto) 0.7 x10^3/uL (0.0-1.1) Eosinophils # (Auto) 0.2 x10^3/uL (0.0-0.7) Basophils # (Auto) 0.1 x10^3/uL (0.0-0.2) Prothrombin Time 12.3 SEC (11.7-14.0) Prothromb Time International Ratio 1.0 (0.8-1.1) Sodium Level 149 mmol/L (136-145) Potassium Level 3.8 mmol/L (3.5-5.1) Chloride Level 113 mmol/L (98-107) Carbon Dioxide Level 28 mmol/L (21-32) Anion Gap 8 (6-14) Blood Urea Nitrogen 23 mg/dL (7-20) Creatinine 0.8 mg/dL (0.6-1.0) Estimated GFR (Cockcroft-Gault) 71.3 BUN/Creatinine Ratio 29 (6-20) Glucose Level 145 mg/dL (70-99) Calcium Level 8.7 mg/dL (8.5-10.1) Total Bilirubin 1.2 mg/dL (0.2-1.0) Aspartate Amino Transf (AST/SGOT) 14 U/L (15-37) Alanine Aminotransferase (ALT/SGPT) 16 U/L (14-59) Alkaline Phosphatase 79 U/L (46-116) Total Protein 6.8 g/dL (6.4-8.2) Albumin 3.1 g/dL (3.4-5.0) Albumin/Globulin Ratio 0.8 (1.0-1.7) Triglycerides Level 140 mg/dL (0-150) Cholesterol Level 155 mg/dL (0-200) LDL Cholesterol, Calculated 90 mg/dL (0-100) VLDL Cholesterol, Calculated 28 mg/dL (0-40) Non-HDL Cholesterol Calculated 118 mg/dL (0-129) HDL Cholesterol 37 mg/dL (40-60) Cholesterol/HDL Ratio 4.2 Urine Collection Type Unknown Urine Color Yellow Urine Clarity Clear Urine pH 7.5 (<5.0-8.0) Urine Specific [place] 1.020 (1.000-1.030) Urine Protein Negative mg/dL (NEG-TRACE) Urine Glucose (UA) Negative mg/dL (NEG) Urine Ketones (Stick) Negative mg/dL (NEG) Urine Blood Negative (NEG) Urine Nitrite Negative (NEG) Urine Bilirubin Negative (NEG) Urine Urobilinogen Dipstick 2.0 mg/dL (0.2 mg/dL) Urine Leukocyte Esterase Negative (NEG) Urine RBC 0 /HPF (0-2) Urine WBC Rare /HPF (0-4) Urine Squamous Epithelial Cells Few /LPF Urine Bacteria Few /HPF (0-FEW) Images Images Reviewed findings of CT chest and spine Assessment/Plan Assessment/Plan Assessment: Right lung mass Suspected COPD Tobacco abuse Elevated bilirubin Recommendations: -I agree with Dr. Hooper regarding pursuing biopsy. CT-guided biopsy is reasonable if no endobronchial lesion is noted -I will follow-up on results of biopsy -Recommend PFTs -Given abdominal pain and elevated bilirubin, I would recommend additional evaluation with CT abdomen or ultrasound abdomen -I recommend obtaining MRI brain and PET/CT as outpatient after confirmation of histology in order to complete staging and allow formulation of treatment plan Yair Clark MD Medical Oncology/Hematology Ph: [phone] AISLINN CLARK MD Nov 08, 2019 13:46
[2019-11-08 15:00] VITALS: BP 151/69
[2019-11-08 19:25] VITALS: BP 149/64
[2019-11-08] MEDS: AMITRIPTYLINE HCL 10 MG TABLET. PO SCH (21:36)
[2019-11-08 23:25] VITALS: BP 166/74
[2019-11-09] VITALS (17 sets, daily range): BP systolic 117–184; BP diastolic 49–107
[2019-11-09 03:09] LABS: HEMOGLOBIN A1C 6.3 % (4.8-5.6)
[2019-11-09] MEDS: cloNIDine HCL 0.1 MG TABLET PO PRN (03:56)
--- NOTE | 2019-11-09 08:55 | PDOC ---
PROGRESS NOTES Date of Service: DATE: 11/09/19 TIME: 08:53 Subjective Subjective Going for lung biopsy Objective Objective Vital Signs Date Time Temp Pulse Resp B/P (MAP) Pulse Ox O2 Delivery O2 Flow Rate FiO2 11/09/19 08:12 Room Air 11/09/19 07:00 97.6 85 18 151/65 (93) 96 97.6 Intake and Output 11/09/19 07:00 Intake Total 240 ml Balance 240 ml Intake Oral 240 ml # Voids 2 Physical Exam Abdomen: Normal bowel sounds, Soft Heart: Regular rate, Normal S1, Normal S2 Extremities: No clubbing, No cyanosis General: Alert, Oriented X3 HEENT: Atraumatic, PERRLA Lungs: Clear to auscultation MUSCULOSKELETAL: No swelling Neuro: Normal speech Psych/Mental Status: Mental status NL Skin: No rashes Assessment Assessment FINAL IMPRESSION: 1. Right upper lung mass with progression, highly suspicious for primary lung cancer. 2. T10 compression fracture. 3. Hypertension. 4. History of intracranial bleed from aneurysm, cognitive impairment. 5. Multiple abdominal surgeries for ventral hernia. PLAN: Rt lung biopsy CT guided today. appreciate Pulmonary and oncology consult. home later today if no complications after biopsy . Labs reviewed ok spoke with pts . At this time, admitted for pain control, Lortab is not helping, given Dilaudid. Rehab consult was done. In view of increasing in size of the lung mass, I discussed with the patient's . In the past, he did not want anything done, further investigation and now is agreeable to have consultation with Pulmonary and Oncology and further recommendations. We will put Oncology, Pulmonary consult and see how she does. Comment Review of Relevant I have reviewed the following items ranulfo (where applicable) has been applied. Medications Current Medications Hydromorphone HCl (Dilaudid) 1 mg PRN Q4HRS PRN IM PAIN Last administered on 11/08/19at 17:54; Start 11/08/19 at 11:15 Multivitamins (Thera M Plus) 1 tab DAILY PO Last administered on 11/08/19at 09:38; Start 11/08/19 at 09:00 Vitals/I & O Vital Sign - Last 24 Hours 11/08/19 11/08/19 11/08/19 11/08/19 09:38 10:54 11:00 11:24 Temp 98.3 98.3 Pulse 77 Resp 18 B/P (MAP) 174/64 (100) Pulse Ox 93 O2 Delivery Room Air Room Air Room Air Room Air 11/08/19 11/08/19 11/08/19 11/08/19 11:55 15:00 17:54 18:37 Temp 97.8 97.8 Pulse 76 Resp 18 B/P (MAP) 151/69 (96) Pulse Ox 95 O2 Delivery Room Air Room Air Room Air Room Air 11/08/19 11/08/19 11/08/19 11/08/19 19:25 20:05 21:36 23:25 Temp 98.3 98.1 98.3 98.1 Pulse 75 80 Resp 18 20 B/P (MAP) 149/64 (92) 166/74 (104) Pulse Ox 92 94 O2 Delivery Room Air Room Air Room Air Room Air 11/09/19 11/09/19 11/09/19 11/09/19 03:36 03:56 07:00 08:12 Temp 97.9 97.6 97.9 97.6 Pulse 79 79 85 Resp 18 18 B/P (MAP) 184/90 (121) 184/90 151/65 (93) Pulse Ox 92 96 O2 Delivery Room Air Room Air Room Air Intake and Output 11/08/19 11/08/19 11/09/19 15:00 23:00 07:00 Intake Total 240 ml Balance 240 ml Justifications for Admission Other Justification CHRISTOPH LE MD Nov 09, 2019 08:55
--- NOTE | 2019-11-09 08:59 | PDOC ---
PULMONARY PROGRESS NOTES DATE: 11/09/19 TIME: 08:59 Subjective PT. sitting EOB resting comfortably on room air Denies SOA or cough Vitals Vital Signs Date Time Temp Pulse Resp B/P (MAP) Pulse Ox O2 Delivery O2 Flow Rate FiO2 11/09/19 08:12 Room Air 11/09/19 07:00 97.6 85 18 151/65 (93) 96 97.6 General: Alert, Oriented X4, No acute distress HEENT: Other Lungs: Clear Cardiovascular: S1, S2 Abdomen: Soft, Other Extremities: No Edema Labs Laboratory Tests Test 11/07/19 18:10 11/07/19 20:39 White Blood Count 8.6 x10^3/uL (4.0-11.0) Red Blood Count 4.53 x10^6/uL (3.50-5.40) Hemoglobin 13.4 g/dL (12.0-15.5) Hematocrit 40.5 % (36.0-47.0) Mean Corpuscular Volume 89 fL (79-100) Mean Corpuscular Hemoglobin 30 pg (25-35) Mean Corpuscular Hemoglobin Concent 33 g/dL (31-37) Red Cell Distribution Width 14.4 % (11.5-14.5) Platelet Count 285 x10^3/uL (140-400) Neutrophils (%) (Auto) 74 % (31-73) Lymphocytes (%) (Auto) 15 % (24-48) Monocytes (%) (Auto) 8 % (0-9) Eosinophils (%) (Auto) 3 % (0-3) Basophils (%) (Auto) 1 % (0-3) Neutrophils # (Auto) 6.4 x10^3/uL (1.8-7.7) Lymphocytes # (Auto) 1.2 x10^3/uL (1.0-4.8) Monocytes # (Auto) 0.7 x10^3/uL (0.0-1.1) Eosinophils # (Auto) 0.2 x10^3/uL (0.0-0.7) Basophils # (Auto) 0.1 x10^3/uL (0.0-0.2) Prothrombin Time 12.3 SEC (11.7-14.0) Prothromb Time International Ratio 1.0 (0.8-1.1) Sodium Level 149 mmol/L (136-145) Potassium Level 3.8 mmol/L (3.5-5.1) Chloride Level 113 mmol/L (98-107) Carbon Dioxide Level 28 mmol/L (21-32) Anion Gap 8 (6-14) Blood Urea Nitrogen 23 mg/dL (7-20) Creatinine 0.8 mg/dL (0.6-1.0) Estimated GFR (Cockcroft-Gault) 71.3 BUN/Creatinine Ratio 29 (6-20) Glucose Level 145 mg/dL (70-99) Hemoglobin A1c 6.3 % (4.8-5.6) Calcium Level 8.7 mg/dL (8.5-10.1) Total Bilirubin 1.2 mg/dL (0.2-1.0) Aspartate Amino Transf (AST/SGOT) 14 U/L (15-37) Alanine Aminotransferase (ALT/SGPT) 16 U/L (14-59) Alkaline Phosphatase 79 U/L (46-116) Total Protein 6.8 g/dL (6.4-8.2) Albumin 3.1 g/dL (3.4-5.0) Albumin/Globulin Ratio 0.8 (1.0-1.7) Triglycerides Level 140 mg/dL (0-150) Cholesterol Level 155 mg/dL (0-200) LDL Cholesterol, Calculated 90 mg/dL (0-100) VLDL Cholesterol, Calculated 28 mg/dL (0-40) Non-HDL Cholesterol Calculated 118 mg/dL (0-129) HDL Cholesterol 37 mg/dL (40-60) Cholesterol/HDL Ratio 4.2 Urine Collection Type Unknown Urine Color Yellow Urine Clarity Clear Urine pH 7.5 (<5.0-8.0) Urine Specific [place] 1.020 (1.000-1.030) Urine Protein Negative mg/dL (NEG-TRACE) Urine Glucose (UA) Negative mg/dL (NEG) Urine Ketones (Stick) Negative mg/dL (NEG) Urine Blood Negative (NEG) Urine Nitrite Negative (NEG) Urine Bilirubin Negative (NEG) Urine Urobilinogen Dipstick 2.0 mg/dL (0.2 mg/dL) Urine Leukocyte Esterase Negative (NEG) Urine RBC 0 /HPF (0-2) Urine WBC Rare /HPF (0-4) Urine Squamous Epithelial Cells Few /LPF Urine Bacteria Few /HPF (0-FEW) Medications Active Scripts Medications Dose Route/Sig Max Daily Dose Days Date Category Hydrocodone-Apap 10-325 (Hydrocodone Bit/Acetaminophen) 1 Tab Tablet 1 Tab PO PRN Q8HRS PRN 11/07/19 Reported Proair Hfa (Albuterol Sulfate) 8.5 Gm Hfa.aer.ad 2 Puff IH PRN Q4-6HRS PRN 21 06/11/19 Rx Proctocream-Hc (Hydrocortisone) 30 Gm Cream..g. 1 Laly TP BID 12/21/17 Reported Gabapentin (Gabapentin) 300 Mg Capsule 300 Mg PO TID 12/21/17 Reported Clonidine Hcl 0.1 Mg Tablet 1 Tab PO PRN TID PRN 12/21/17 Reported Azopt (Brinzolamide) 10 Ml Drops.susp 1 Drop OD BID 12/07/16 Reported Amitriptyline Hcl 10 Mg Tablet 10 Mg PO QHS 12/07/16 Reported Calcium (Calcium Carbonate) 600 Mg Tablet 600 Mg PO DAILY 12/02/16 Reported Multivitamins (Multivitamin) 1 Each Capsule 1 Each PO DAILY 12/02/16 Reported Meclizine Hcl 25 Mg Tablet 1 Tab PO PRN TID PRN 12/02/16 Reported Ventolin Hfa Inhaler (Albuterol Sulfate) 18 Gm Hfa.aer.ad 18 Gm INH PRN PRN 08/02/16 Reported Lumigan (Bimatoprost) 2.5 Ml Drops 2.5 Ml OD BID 08/02/16 Reported Combigan Eye Drops (Brimonidine Tartrate/Timolol) 5 Ml Drops 5 Ml OD BID 08/02/16 Reported Impression . IMPRESSION: 1. Enlarging right upper lobe mass. This was 1.6 cm in size in the right upper lobe in 2018 and now it is 3 cm in size. It was hypermetabolic based on the PET scan and strongly favoring lung malignancy. She may have tiny metastasis within the lung on the right and left side, but it is difficult to exclude. I did spoke to the patient again regarding the need for biopsy if she wants any form of treatment. She and her have been reluctant to undergo any invasive testing in the past and has also not been compliant with followup visits with Dr. Maciel.The patient wants to wait and talk to her before making any decision. 2.Fifty years of tobaccoism, could be severe COPD. Plan . RECOMMENDATIONS: Remains on room air CT-guided biopsy performed, patient to discharge home today, follow-up with me next Tuesday at 11:45 AM Await/ Follow pathology Cont. bronchodilators. D/W SENIA LOWRY MD Nov 09, 2019 08:59
[2019-11-09] MEDS: CALCIUM CARBONATE 500 MG TABLET PO SCH (09:00)
[2019-11-09] MEDS: DORZOLAMIDE 2% OPHTH SOLUTION 10ML BOTTLE. OD SCH (09:00)
[2019-11-09] MEDS: LATANOPROST 0.005% OPHTH SOLUTION 2.5ML BOTTLE. OD SCH (09:00)
[2019-11-09] MEDS: GABAPENTIN 300 MG CAPSULE. PO SCH ×2 (09:00→14:00)
[2019-11-09] MEDS: MULTIVITAMIN with MINERAL TABLET. PO SCH (09:00)
--- NOTE | 2019-11-09 11:23 | NUR ---
SW following. Discussed with RN, script for walker with seat. SW contacted [employer] - they advised SW send script to DME provider in network, and if auth is needed the DME company can request from [employer]. NAVI notified Dr. Serna - requested note stating why pt needs walker with seat, Dr. Serna requested Dr. Saldivar be asked to enter this note -RN notified. SW awaiting note to send referral to DME provider. SW will continue to follow. RN notified. Addendum: 11/09/19 at 1126 by KACEY MCELROY Pt having a lung biopsy today, possible discharge home today if all goes well during procedure. Addendum: 11/09/19 at 1445 by KACEY MCELROY NAVI spoke with pt's , he is aware the seated walker would not arrive prior to discharge, and is fine with this. Pt's declined home health services at discharge. NAVI will continue to follow. Addendum: 11/09/19 at 1519 by KACEY MCELROY The following DME companies are not in network with pt's insurance - [employer], [employer], [employer], [facility]. [facility] (ph: [phone], fax: [phone]) out of [place], [place] is in network. NAVI faxed referral to [facility], awaiting confirmation.
[2019-11-09] MEDS ORDERED: LIDOCAINE WITH 8.4% SOD BICARB 3 ML DISP.SYRIN. ONE (11:41)
[2019-11-09] MEDS ORDERED: MIDAZOLAM HCL/PF 5 MG/5 ML VIAL. ONE (11:47)
[2019-11-09] MEDS ORDERED: fentaNYL PF VIAL 100 MCG/2 ML VIAL ONE (11:47)
[2019-11-09] MEDS ORDERED: fentaNYL PF VIAL 100 MCG/2 ML VIAL IV ONE (12:00)
[2019-11-09] MEDS ORDERED: LIDOCAINE WITH 8.4% SOD BICARB 3 ML DISP.SYRIN. IJ ONE (12:00)
[2019-11-09] MEDS ORDERED: MIDAZOLAM HCL/PF 5 MG/5 ML VIAL. IV ONE (12:00)
--- NOTE | 2019-11-09 13:00 | NUR ---
Pt returning from biopsy. Dressing CDI. Frequent VS started. Pt in bed denies any needs. Meal tray ordered. Call light within reach. Will return to monitor.
--- NOTE | 2019-11-09 14:04 | PDOC ---
PROGRESS NOTES Date of Service DATE: 11/09/19 TIME: 13:56 Subjective Subjective She admits continued low back soreness. Objective Objective Vital Signs Date Time Temp Pulse Resp B/P (MAP) Pulse Ox O2 Delivery O2 Flow Rate FiO2 11/09/19 13:45 73 18 127/52 (77) 90 Nasal Cannula 11/09/19 13:00 2.0 11/09/19 11:00 98.1 98.1 Intake and Output 11/09/19 07:00 Intake Total 240 ml Balance 240 ml Intake Oral 240 ml # Voids 2 Physical Exam Physical Exam She is using bedside commode now and she plans to go home today. She needs roller walker with wheels and seat rest as she continues with low back pain interfering with her mobility and she gets tired easily. Plan Plan of Care I gave her prescription for roller walker and lumbar corset for use while up. To consider sacroiliac joint injections if pain persist. Comment Review of Relevant I have reviewed the following items ranulfo (where applicable) has been applied. Labs Laboratory Tests Test 11/07/19 18:10 11/07/19 20:39 White Blood Count 8.6 x10^3/uL (4.0-11.0) Red Blood Count 4.53 x10^6/uL (3.50-5.40) Hemoglobin 13.4 g/dL (12.0-15.5) Hematocrit 40.5 % (36.0-47.0) Mean Corpuscular Volume 89 fL (79-100) Mean Corpuscular Hemoglobin 30 pg (25-35) Mean Corpuscular Hemoglobin Concent 33 g/dL (31-37) Red Cell Distribution Width 14.4 % (11.5-14.5) Platelet Count 285 x10^3/uL (140-400) Neutrophils (%) (Auto) 74 % (31-73) Lymphocytes (%) (Auto) 15 % (24-48) Monocytes (%) (Auto) 8 % (0-9) Eosinophils (%) (Auto) 3 % (0-3) Basophils (%) (Auto) 1 % (0-3) Neutrophils # (Auto) 6.4 x10^3/uL (1.8-7.7) Lymphocytes # (Auto) 1.2 x10^3/uL (1.0-4.8) Monocytes # (Auto) 0.7 x10^3/uL (0.0-1.1) Eosinophils # (Auto) 0.2 x10^3/uL (0.0-0.7) Basophils # (Auto) 0.1 x10^3/uL (0.0-0.2) Prothrombin Time 12.3 SEC (11.7-14.0) Prothromb Time International Ratio 1.0 (0.8-1.1) Sodium Level 149 mmol/L (136-145) Potassium Level 3.8 mmol/L (3.5-5.1) Chloride Level 113 mmol/L (98-107) Carbon Dioxide Level 28 mmol/L (21-32) Anion Gap 8 (6-14) Blood Urea Nitrogen 23 mg/dL (7-20) Creatinine 0.8 mg/dL (0.6-1.0) Estimated GFR (Cockcroft-Gault) 71.3 BUN/Creatinine Ratio 29 (6-20) Glucose Level 145 mg/dL (70-99) Hemoglobin A1c 6.3 % (4.8-5.6) Calcium Level 8.7 mg/dL (8.5-10.1) Total Bilirubin 1.2 mg/dL (0.2-1.0) Aspartate Amino Transf (AST/SGOT) 14 U/L (15-37) Alanine Aminotransferase (ALT/SGPT) 16 U/L (14-59) Alkaline Phosphatase 79 U/L (46-116) Total Protein 6.8 g/dL (6.4-8.2) Albumin 3.1 g/dL (3.4-5.0) Albumin/Globulin Ratio 0.8 (1.0-1.7) Triglycerides Level 140 mg/dL (0-150) Cholesterol Level 155 mg/dL (0-200) LDL Cholesterol, Calculated 90 mg/dL (0-100) VLDL Cholesterol, Calculated 28 mg/dL (0-40) Non-HDL Cholesterol Calculated 118 mg/dL (0-129) HDL Cholesterol 37 mg/dL (40-60) Cholesterol/HDL Ratio 4.2 Urine Collection Type Unknown Urine Color Yellow Urine Clarity Clear Urine pH 7.5 (<5.0-8.0) Urine Specific [place] 1.020 (1.000-1.030) Urine Protein Negative mg/dL (NEG-TRACE) Urine Glucose (UA) Negative mg/dL (NEG) Urine Ketones (Stick) Negative mg/dL (NEG) Urine Blood Negative (NEG) Urine Nitrite Negative (NEG) Urine Bilirubin Negative (NEG) Urine Urobilinogen Dipstick 2.0 mg/dL (0.2 mg/dL) Urine Leukocyte Esterase Negative (NEG) Urine RBC 0 /HPF (0-2) Urine WBC Rare /HPF (0-4) Urine Squamous Epithelial Cells Few /LPF Urine Bacteria Few /HPF (0-FEW) Medications Current Medications Albuterol Sulfate (Ventolin Neb Soln) 2.5 mg PRN QID PRN NEB wheezing; Start 11/07/19 at 16:15 Amitriptyline HCl (Elavil) 10 mg QHS PO Last administered on 11/08/19 21:36; Start 11/07/19 at 21:00 Clonidine HCl (Catapres) 0.1 mg PRN TID PRN PO HYPERTENSION Last administered on 11/09/19 03:56; Start 11/07/19 at 16:15 Gabapentin (Neurontin) 300 mg TID PO Last administered on 11/08/19 21:35; Start 11/07/19 at 16:30 Acetaminophen/ Hydrocodone Bitart (Lortab 10/325) 1 tab PRN Q8HRS PRN PO MODERATE PAIN Last administered on 11/08/19 21:36; Start 11/07/19 at 16:15 Non-Formulary Medication (Albuterol Sulfate (Ventolin Hfa Inhaler)) 18 gm PRN PRN INH SHORTNESS OF BREATH; Start 11/07/19 at 16:15; Status UNV Latanoprost (Xalatan) 1 drop BID OD Last administered on 11/08/19 21:36; Start 11/07/19 at 21:00 Brimonidine Tartrate (Alphagan) 1 drop BID OD Last administered on 11/08/19 09:38; Start 11/07/19 at 21:00; Stop 11/08/19 at 19:19; Status DC Dorzolamide HCl (Trusopt) 1 drop BID OD Last administered on 11/08/19 21:36; Start 11/07/19 at 21:00 Calcium Carbonate/ Glycine (Oscal) 500 mg DAILY PO Last administered on 8/27/20at 09:38; Start 11/07/19 at 18:00 Meclizine HCl (Antivert) 25 mg PRN TID PRN PO DIZZINESS; Start 11/07/19 at 16:30 Multivitamins (Thera M Plus) 1 tab DAILY PO Last administered on 11/08/19at 09:38; Start 11/08/19 at 09:00 Hydromorphone HCl (Dilaudid) 1 mg PRN Q4HRS PRN IVP MODERATE TO SEVERE PAIN Last administered on 11/09/19at 08:14; Start 11/07/19 at 16:15 Timolol Maleate (Timoptic 0.5% Oph) 1 drop BID OD Last administered on 11/08/19at 09:39; Start 11/07/19 at 21:00; Stop 11/08/19 at 19:19; Status DC Hydromorphone HCl (Dilaudid) 1 mg PRN Q4HRS PRN IM PAIN Last administered on 11/08/19at 17:54; Start 11/08/19 at 11:15 Lidocaine HCl (Buffered Lidocaine 1%) 3 ml STK-MED ONCE .ROUTE ; Start 11/09/19 at 11:41; Stop 11/09/19 at 11:42; Status DC Midazolam HCl (Versed) 5 mg STK-MED ONCE .ROUTE ; Start 11/09/19 at 11:47; Stop 11/09/19 at 11:47; Status DC Fentanyl Citrate (Fentanyl 2ml Vial) 100 mcg STK-MED ONCE .ROUTE ; Start 11/09/19 at 11:47; Stop 11/09/19 at 11:48; Status DC Lidocaine HCl (Buffered Lidocaine 1%) 3 ml 1X ONCE IJ Last administered on 11/09/19at 12:00; Start 11/09/19 at 12:00; Stop 11/09/19 at 12:05; Status DC Midazolam HCl (Versed) 5 mg 1X ONCE IV Last administered on 11/09/19at 12:02; Start 11/09/19 at 12:00; Stop 11/09/19 at 12:05; Status DC Fentanyl Citrate (Fentanyl 2ml Vial) 100 mcg 1X ONCE IV Last administered on 11/09/19at 12:02; Start 11/09/19 at 12:00; Stop 11/09/19 at 12:05; Status DC Active Scripts Active Proair Hfa (Albuterol Sulfate) 8.5 Gm Hfa.aer.ad 2 Puff IH PRN Q4-6HRS PRN 21 Days Reported Hydrocodone-Apap 10-325 (Hydrocodone Bit/Acetaminophen) 1 Tab Tablet 1 Tab PO PRN Q8HRS PRN Proctocream-Hc (Hydrocortisone) 30 Gm Cream..g. 1 Laly TP BID Gabapentin (Gabapentin) 300 Mg Capsule 300 Mg PO TID Clonidine Hcl 0.1 Mg Tablet 1 Tab PO PRN TID PRN Azopt (Brinzolamide) 10 Ml Drops.susp 1 Drop OD BID Amitriptyline Hcl 10 Mg Tablet 10 Mg PO QHS Calcium (Calcium Carbonate) 600 Mg Tablet 600 Mg PO DAILY Multivitamins (Multivitamin) 1 Each Capsule 1 Each PO DAILY Meclizine Hcl 25 Mg Tablet 1 Tab PO PRN TID PRN Ventolin Hfa Inhaler (Albuterol Sulfate) 18 Gm Hfa.aer.ad 18 Gm INH PRN PRN Lumigan (Bimatoprost) 2.5 Ml Drops 2.5 Ml OD BID Combigan Eye Drops (Brimonidine Tartrate/Timolol) 5 Ml Drops 5 Ml OD BID Vitals/I & O Vital Sign - Last 24 Hours 11/08/19 11/08/19 11/08/19 11/08/19 15:00 17:54 18:37 19:25 Temp 97.8 98.3 97.8 98.3 Pulse 76 75 Resp 18 18 B/P (MAP) 151/69 (96) 149/64 (92) Pulse Ox 95 92 O2 Delivery Room Air Room Air Room Air Room Air 11/08/19 11/08/19 11/08/19 11/09/19 20:05 21:36 23:25 03:36 Temp 98.1 97.9 98.1 97.9 Pulse 80 79 Resp 20 18 B/P (MAP) 166/74 (104) 184/90 (121) Pulse Ox 94 92 O2 Delivery Room Air Room Air Room Air Room Air 11/09/19 11/09/19 11/09/19 11/09/19 03:56 07:00 08:12 08:14 Temp 97.6 97.6 Pulse 79 85 Resp 18 B/P (MAP) 184/90 151/65 (93) Pulse Ox 96 O2 Delivery Room Air Room Air Room Air 11/09/19 11/09/19 11/09/19 11/09/19 08:45 10:10 11:00 11:59 Temp 98.1 98.1 Pulse 85 77 Resp 18 18 B/P (MAP) 127/70 (89) 142/57 (85) Pulse Ox 97 90 91 O2 Delivery Room Air Room Air Nasal Cannula O2 Flow Rate 2.0 11/09/19 11/09/19 11/09/19 11/09/19 12:02 12:03 12:04 12:09 Pulse 77 77 78 Resp 18 18 18 18 B/P (MAP) 120/55 (76) 117/61 (79) Pulse Ox 94 93 95 O2 Delivery Nasal Cannula Nasal Cannula Nasal Cannula O2 Flow Rate 2.0 2.0 2.0 11/09/19 11/09/19 11/09/19 11/09/19 12:16 12:30 12:45 13:00 Pulse 78 77 75 72 Resp 16 18 18 18 B/P (MAP) 131/62 (85) 144/60 (88) 130/49 (76) Pulse Ox 95 90 90 90 O2 Delivery Nasal Cannula Nasal Cannula Nasal Cannula Nasal Cannula O2 Flow Rate 2.0 2.0 2.0 2.0 11/09/19 11/09/19 13:15 13:45 Pulse 72 73 Resp 19 18 B/P (MAP) 130/49 (76) 127/52 (77) Pulse Ox 90 90 O2 Delivery Nasal Cannula Nasal Cannula Intake and Output 11/08/19 11/08/19 11/09/19 15:00 23:00 07:00 Intake Total 240 ml Balance 240 ml Justifications for Admission Other Justification ADRIÁN MARTINEZ MD Nov 09, 2019 14:04
--- NOTE | 2019-11-09 16:24 | RAD ---
Procedure: CT-guided biopsy, right upper lobe mass Clinical Indication: Right upper lobe mass, concerning for malignancy Sedation: Conscious sedation was administered for 20 minutes. The patient was monitored by a qualified independent observer throughout the time of sedation. Please refer to the medical record for exact doses of medications utilized to achieve moderate sedation. Consent: The procedure was explained in its entirety to the patient or the patients designated territory service representative by a member of the treatment team, including a discussion of the risks, benefits and commonly accepted alternatives to the procedure, as well as the expected consequences of no therapy whatsoever. Discussion of the risks included, but was not limited to, those that are most frequent and those that are rare but possibly severe or life-threatening, as well as the possibility of unforeseen complications. Technique and Findings: Following informed consent, the patient was prepped and draped in the usual sterile fashion. CT imaging redemonstrates right upper lobe mass concerning for malignancy. 1% Lidocaine was administered to the skin and subcutaneous cutaneous tissues overlying the anterior right breast. A small dermatotomy was made. Under intermittent CT guidance a 19-gauge needle was advanced into the mass. Core needle biopsies were obtained. The needle was removed. Minimal perilesional hemorrhage was noted. No pneumothorax is identified. Manual pressure was held. No immediate complications were seen patient tolerated the procedure well. Sterile dressings were applied. Impression: CT-guided biopsy, right upper lobe mass PQRS Compliance Statement: One or more of the following individualized dose reduction techniques were utilized for this examination: 1. Automated exposure control 2. Adjustment of the mA and/or kV according to patient size 3. Use of iterative reconstruction technique
--- NOTE | 2019-11-09 16:40 | RAD ---
CHEST AP ONLY History: Reason: Lung Bx Comparison: CT November 08, 2019. Findings: Right upper lung mass, unchanged. Mild patchy opacities adjacent to the mass. No pneumothorax. No pleural effusion. Normal heart size. Impression: 1. Right upper lung mass with mild adjacent patchy opacities, related to postbiopsy hemorrhage. No pneumothorax. Electronically signed by: Jeronimo Wright DO (11/09/2019 4:37 PM) [facility]
[2019-11-09] MEDS: HYDROcodone/APAP 10/325 1 TAB TABLET PO PRN (19:16)
--- NOTE | 2019-11-09 19:48 | NUR ---
Pt discharged home with self care. Discharge instructions discussed with . Assisted to wheelchair and taken to ED entrance and was secured in car with .
--- NOTE | 2019-11-12 15:08 | PATHOLOGY ---
[facility] Accession Number: [id number] . 01 Material submitted: . lung - RIGHT LUNG BX. Modifiers: right . 01 Clinical history: . RIGHT LUNG MASS, SEVER CHRONIC BACK PAIN . 02 Diagnosis: Lung tissue, right lung mass needle biopsy: - ADENOCARCINOMA, MODERATELY DIFFERENTIATED. SEE COMMENT. LB 11/12/2019 0956 Local . 02 Comment: Sections of the right lung mass needle biopsy reveal a malignant epithelial neoplasm. There are focal crowded glands present within an inflamed fibrous stroma. The glands are lined by columnar cells having eosinophilic cytoplasm and possessing basally situated, mild to moderately pleomorphic nuclei having prominent nucleoli. The adjacent lung tissue shows edema, fibrosis, and chronic inflammation. The morphologic findings are supportive of the diagnosis of a moderately differentiated pulmonary acinar adenocarcinoma. The case is also examined by Dr. Mckeon, who concurs with the diagnosis. Results are reported to Dr. Hooper on 11/12/19 at 3:00 PM. (JPM/db; 11/12/2019) . 02 Electronically signed: . Christopher Barroso MD, Pathologist NPI- [id number] . 01 Gross description: . The specimen is received in formalin, labeled "Flora Benjamín, right lung biopsy". Received are two needle cores of pale henson soft tissue ranging in length from 0.5 to 0.7 cm in length by 0.1 cm in diameter. The specimen is submitted entirely in cassettes A1 and A2. (CAA; 11/09/2019) QAC/QAC 11/09/2019 1616 Local . 02 Pathologist provided ICD-10: C34.91 . 02 CPT . 744320 Specimen Comment: A courtesy copy of this report has been sent to [phone], [phone] Specimen Comment: [id number], Specimen Comment: Report sent to ,DR LE / DR HOOPER Performed at: [address] [id number] MD Ruben Head MD Phone: [phone] Performed at: 02 [facility] [address] [place], [place] [id number] MD Christopher Barroso MD Phone: [phone]
--- NOTE | 2019-11-13 12:26 | RESP ---
DATE OF SERVICE: 11/09/2019 PULMONARY FUNCTION TEST The patient's FVC was 1.92, which is 62% predicted, FEV1 1.45, which is 62% predicted. The FEV1/FVC ratio was normal. FEF 25-75 was 1.24, which was 62% predicted. No response to bronchodilators. Lung volume showed increased total lung capacity of 163% predicted and residual volume 325% predicted. Diffusion capacity 76% predicted. IMPRESSION: 1. Spirometry findings suggestive of mild obstructive airway disease. 2. No response to bronchodilators. 3. Lung volumes consistent with air trapping and hyperinflation. 4. Mildly reduced diffusion capacity. ARACELI MICHAEL MD DR: SAMMY/genesis JOB#: [id number] / [id number]
--- NOTE | 2019-11-15 03:24 | DS ---
DATE OF DISCHARGE: 11/09/2019 REASON FOR ADMISSION TO THE HOSPITAL: Right lung mass and severe back pain. CONSULTATION: 1. Dr. Hooper. 2. Dr. Saldivar. 3. Dr. Reid, Oncology. PROCEDURES DONE: CT-guided biopsy of the lung mass. HOSPITAL COURSE: The patient is a 69-year-old female. The patient had a right lung mass for last 2 years. She refused any intervention including biopsy in the past. The patient was having more back pain, was admitted to the hospital. CT chest shows enlarging right upper lobe mass [address] of the thoracic, lumbar spine shows old compression fracture; otherwise, no new fractures. The patient was seen by Pulmonology and Interventional Radiology and Oncology, recommended to get a tissue biopsy. The patient's right lung biopsy done and it came back positive for adenocarcinoma, moderately differentiated right upper lung. The patient was discharged. Follow up with outpatient Oncology. No complications noted after the biopsy. FINAL DIAGNOSES: 1. New onset of lung cancer, adenocarcinoma, right upper lung mass. 2. Chronic obstructive pulmonary disease. 3. Chronic smoker. 4. History of cognitive deficit secondary to previous stroke from brain aneurysm. DISPOSITION: Home. DISCHARGE MEDICATIONS: See MRAD for discharge medications. CHRISTOPH LE MD DR: PURVI/genesis JOB#: [id number] / [id number]
== END 2019-11-09 19:53 | disposition home or self-care (01) | DRG 181 ==
LOC: 4 NORTH 13:37
PROVIDERS: ADMIT Internal Medicine; ATTEND Internal Medicine
PROC: 0BBC3ZX Excision of Right Upper Lung Lobe, Percutaneous Approach, Diagnostic (ICD-10-PCS; principal; 2019-11-09)
DX: C34.11 Malignant neoplasm of upper lobe, right bronchus or lung (principal); M48.54XA Collapsed vertebra, not elsewhere classified, thoracic region, initial encounter for fracture; R17 Unspecified jaundice; K21.9 Gastro-esophageal reflux disease without esophagitis; M19.90 Unspecified osteoarthritis, unspecified site; J44.9 Chronic obstructive pulmonary disease, unspecified; I10 Essential (primary) hypertension; F17.210 Nicotine dependence, cigarettes, uncomplicated; K43.9 Ventral hernia without obstruction or gangrene; M51.36 Other intervertebral disc degeneration, lumbar region; M51.34 Other intervertebral disc degeneration, thoracic region; M47.816 Spondylosis without myelopathy or radiculopathy, lumbar region; G89.29 Other chronic pain; M70.62 Trochanteric bursitis, left hip; M70.61 Trochanteric bursitis, right hip; M17.0 Bilateral primary osteoarthritis of knee; E11.9 Type 2 diabetes mellitus without complications; M50.30 Other cervical disc degeneration, unspecified cervical region; S46.919A Strain of unspecified muscle, fascia and tendon at shoulder and upper arm level, unspecified arm, initial encounter; Y92.89 Other specified places as the place of occurrence of the external cause; Y93.89 Activity, other specified; Y99.8 Other external cause status; Z90.710 Acquired absence of both cervix and uterus; Z90.49 Acquired absence of other specified parts of digestive tract; Z88.8 Allergy status to other drugs, medicaments and biological substances; Z86.73 Personal history of transient ischemic attack (TIA), and cerebral infarction without residual deficits; Z82.49 Family history of ischemic heart disease and other diseases of the circulatory system
CPT/HCPCS: 32405; 36415; 71045; 71250; 72128; 72131; 77012; 80053; 80061; 81001; 83036; 85025; 85610; 88305; 94060; 94640; 94726; 94729; 99152; J1170; J2250; J3010; J3490; 94664; 97116-GP; 97530-GP; G0378

== ENCOUNTER → 2019-11-23 | Outpatient (CLI) | payer OTHER ==
[2019-11-09 16:15] VITALS: BP 129/60
[~2019-11-23] MED LIST changes: +HYDR-2769 PO; +IOHEXOL 300 MG/ML 100ML VIAL. IV ONE
--- NOTE | 2019-11-23 15:58 | RAD ---
EXAM: Head CT with and without contrast. HISTORY: Lung cancer. TECHNIQUE: Computed tomographic images of the head were obtained prior to and following the administration of intravenous contrast. *One or more of the following individualized dose reduction techniques were utilized for this examination: 1. Automated exposure control. 2. Adjustment of the mA and/or kV according to patient size. 3. Use of iterative reconstruction technique. COMPARISON: None. FINDINGS: There is encephalomalacia within the anterior and inferior left frontal lobe and anterior left temporal lobe likely due to the sequela of chronic infarction or chronic hemorrhage. There is associated ex vacuo dilatation of the frontal horn of the left lateral ventricle. There are right frontal craniotomy changes and supraclinoid aneurysm clips. There is no acute or subacute hemorrhage. There is no mass effect or midline shift. There is no hydrocephalus. There are suspected small chronic lacunar infarcts within the right basal ganglia and external capsule. There are bilateral cerebral white matter changes which are likely due to chronic small vessel disease. No convincing suspicious enhancing lesion is seen. There is mucosal thickening involving the sphenoid sinus. There is a right maxillary sinus mucous retention cyst. The orbits and mastoid air cells are unremarkable. There is no suspicious calvarial lesion. IMPRESSION: 1. No acute intracranial finding or evidence of intracranial metastatic disease. 2. 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 There is encephalomalacia throughout the anterior and inferior left frontal lobe and anterior left temporal lobe likely due to chronic infarction or chronic hemorrhage. 3. Tiny suspected chronic lacunar infarcts within the right basal ganglia and external capsule. 4. Bilateral cerebral white matter changes, likely due to chronic small vessel disease. Electronically signed by: Merary Dyer MD (11/23/2019 3:55 PM) [id number]
--- NOTE | 2019-11-23 18:56 | RAD ---
EXAM: PET W CT SKULL TO MIDTHIGH EXAM DATE: 11/23/2019 INDICATION: Initial staging lung cancer. RADIOPHARMACEUTICAL: 13.6 mCi of F-18 Fluorodeoxyglucose (FDG) I.V. via the left wrist. TECHNIQUE: Patient weight: 221 pounds. Following at least four-hour fasting, the patient's blood glucose was 107 mg/dl. Approximately 1 hour after administration of FDG, overlapping emission scanning was performed from the orbital meatal line through the pelvis. A low-dose CT was performed for attenuation correction purposes and anatomic localization. Fused images of PET and CT were reviewed. Any standardized uptake values (SUV) reported are maximum values within a volume region of interest, expressed in gm/ml. COMPARISON: CT-guided lung biopsy of 11/09/2019, CT chest without IV contrast of 11/08/2019 FINDINGS: PET: In the head and neck, a wedge-shaped photopenic defect in the visualized lower left frontal lobe is present. No hypermetabolic abnormalities in the head and neck are identified. In the chest, the biopsied mass in the left upper lobe shows abnormal FDG uptake to max SUV of 5.7. No pleural effusion and no associated abnormal FDG uptake in the mediastinum or right hilum. In the abdomen and pelvis, no abnormal FDG uptake. In the osseous structures, no abnormal FDG uptake. CT: In the head and neck, surgical changes from previous left frontal craniotomy and metallic artifact in the central left skull base suggestive of previous aneurysm clipping is present. Encephalomalacia in the left frontal lobe is present. In the chest, lungs show in addition to the lobulated left upper lobe lung mass, underlying centrilobular pattern emphysema and subtle groundglass attenuation in the left upper lobe (image 112 of series 3) as well as in the right middle lobe (image 149 of series 3). The biopsied mass measures approximately 3.4 cm on this examination abuts the superior right hilum. Chest wall shows an intramuscular lipoma within the right serratus anterior muscle. Abdomen and pelvis shows nonobstructing superior pole left kidney stone and postcholecystectomy changes. Aortic calcifications and postsurgical changes from previous bowel surgery also noted. No acute or aggressive appearing osseous lesions. IMPRESSION: Hypermetabolic 3.4 cm right upper lobe lung mass, consistent with the patient's known lung cancer. No evidence of apoorva or distant metastases. There are incidental groundglass nodules in both lungs as described that are not hypermetabolic. Electronically signed by: Renzo Eduardo MD (11/23/2019 6:53 PM) [id number]
== END | disposition home or self-care (01) ==
LOC: PETSC 13:33
PROVIDERS: ATTEND Internal Medicine Hematology & Oncology
DX: C34.11 Malignant neoplasm of upper lobe, right bronchus or lung (principal); G93.89 Other specified disorders of brain; J43.2 Centrilobular emphysema; D17.9 Benign lipomatous neoplasm, unspecified; R91.8 Other nonspecific abnormal finding of lung field
CPT/HCPCS: 70470; 78815; A9552; Q9967

== ENCOUNTER → 2020-03-05 | Outpatient (CLI) | payer OTHER ==
[2019-11-09 16:15] VITALS: BP 129/60
[~2020-03-05] MED LIST changes: +AMIT50TA PO; -IOHEXOL 300 MG/ML 100ML VIAL. IV ONE; +NABU750T7 PO; +POTA20TA4 PO
--- NOTE | 2020-03-05 13:30 | PDOC1 ---
INITIAL PAIN CONSULT DATE OF SERVICE: DOS: DATE: 03/05/20 TIME: 13:23 CHIEF COMPLAINT: Chief Complaint: Low back and bilateral lower extremity pain HISTORY OF PRESENT ILLNESS: 69-year-old female presents with history of pain low back bilateral lower extremities for about the last 6 months intensified over the last 3 months without any specific injury or accident that she is aware of but gradually increasing over time in the low back and bilateral lower extremities itself patient reports pain in the low back bilateral posterior gluteus posterior lateral thigh lateral anterior thighs medial thighs at times patient reports it is mostly in the back itself describes as constant sharp stabbing throbbing shooting radiating pain in the lower extremities right essentially equal to left. Patient reports that it wakes her from sleep least 3-4 times a night does not affect her bowel bladder control does affect ability to walk when she has difficulty getting up from a seated position also sitting for prolonged periods can cause the pain to exacerbate as well patient is using a wheelchair and is in the wheelchair today on presentation. Patient reports she has had sacroiliac joint injections December of this year which were not helpful at outside facility. Patient is doing physical therapy on her own at home with stretching strength exercises at least twice daily but reports is not significantly decreasing the pain. Patient is taking hydrocodone 10 mg as well as triamcinolone needed which is helping significantly to decrease the pain. Patient rates her disability rating 0-10 10 being the worst is a 10 with recreational activities 0 family home responsibilities and social activity as she is not participate in these. Did have plain films of the spine showing degenerative changes with osteophyte formation vertebral body endplates as well as facet hypertrophy without fracture. Patient reports no overt loss of motor function but has significant fatigability in both lower extremities with any attempted standing walking for more than just a few minutes. PAST MEDICAL HISTORY: PMH: Arthritis, dizziness, headaches PREVIOUS SURGERIES: Past Surgical Hx: Ventral hernia repair x2, subdural hematoma evacuation 2004, total abdominal hysterectomy CURRENT MEDICATIONS: Current Meds: Active Scripts Medications Dose Route/Sig Max Daily Dose Days Date Category Hydrocodone-Apap 10-325 (Hydrocodone Bit/Acetaminophen) 1 Tab Tablet 1 Tab PO PRN Q8HRS PRN 11/07/19 Reported Proair Hfa (Albuterol Sulfate) 8.5 Gm Hfa.aer.ad 2 Puff IH PRN Q4-6HRS PRN 21 06/11/19 Rx Proctocream-Hc (Hydrocortisone) 30 Gm Cream..g. 1 Laly TP BID 12/21/17 Reported Gabapentin (Gabapentin) 300 Mg Capsule 300 Mg PO TID 12/21/17 Reported Clonidine Hcl 0.1 Mg Tablet 1 Tab PO PRN TID PRN 12/21/17 Reported Azopt (Brinzolamide) 10 Ml Drops.susp 1 Drop OD BID 12/07/16 Reported Amitriptyline Hcl 10 Mg Tablet 10 Mg PO QHS 12/07/16 Reported Calcium (Calcium Carbonate) 600 Mg Tablet 600 Mg PO DAILY 12/02/16 Reported Multivitamins (Multivitamin) 1 Each Capsule 1 Each PO DAILY 12/02/16 Reported Meclizine Hcl 25 Mg Tablet 1 Tab PO PRN TID PRN 12/02/16 Reported Ventolin Hfa Inhaler (Albuterol Sulfate) 18 Gm Hfa.aer.ad 18 Gm INH PRN PRN 08/02/16 Reported Lumigan (Bimatoprost) 2.5 Ml Drops 2.5 Ml OD BID 08/02/16 Reported Combigan Eye Drops (Brimonidine Tartrate/Timolol) 5 Ml Drops 5 Ml OD BID 08/02/16 Reported ALLERGIES; Allergies: Coded Allergies: I S O L A T I O N *CONTACT* (Verified Allergy, Unknown, 11/15/17) mrsa No Known Medication Allergies (Verified Allergy, Unknown, 11/15/17) FAMILY HISTORY: Family Hx: Throat cancer, diabetes, hypertension SOCIAL HISTORY: Social Hx: Patient does not drink does not use any illegal illicit recreational drugs continues to smoke less than a pack a day and has for many years. REVIEW OF SYSTEMS: ROS: Positive for those items mentioned in history of present illness, all systems are reviewed, otherwise negative, is complete full and well-documented on patient's chart PHYSICAL EXAM: VS: Pressure is 182/92 pulse 78 respirations 16 temperature 97.9 F height is 5 foot 4 inches weight is 203 pounds PE: PHYSICAL EXAMINATION: GENERAL: The patient is awake, alert, oriented, appropriate, very pleasant demeanor HEENT: Shows normocephalic, atraumatic. Extraocular movements are intact and symmetrical. Oral cavity: Mucous membranes moist and pink. Dentition is intact. NECK: Shows anterior throat supple without palpable lymphadenopathy noted. Swallow reflex symmetrical. CHEST: Shows normal on inspection. Breath sounds are clear bilaterally, distant but without rales rhonchi or wheezes. HEART: Shows S1, S2 clear. No murmurs auscultated. ABDOMEN: Soft, nontender, nondistended, obese. No palpable organomegaly is noted. No rebound or guarding demonstrated. BACK: Shows spine grossly in the midline. Normal-appearing cervical lordotic curvature. There is slightly increased thoracic kyphosis, some minor flattening of the lumbar lordotic curvature. Lumbar paraspinous muscles show symmetrical on inspection, on palpation shows some moderate tenderness diffusely throughout the upper, middle and lower distribution of the paraspinous muscles bilaterally and also into the lower thoracic paraspinous musculature, firm, but without specific trigger points, without radiation of pain. The patient has good rotational motion of the lumbar spine, both laterally as well as extension and flexion without significant difficulty. No tenderness over the spinous processes, sacrum, and mild tenderness only over the sacroiliac regions. EXTREMITIES: Lower extremities show deep tendon reflexes 1+ in the patellar and tendo calcaneus tendons. Motor exam is 3 on a scale of 5 with right dorsiflex ion, extension, quadriceps and hamstring flexion and 5/5 on the left. Peripheral pulses are 1+ posterior tibial. No peripheral edema is noted bilaterally. Lower extremities are warm and dry to touch, equal in color and appearance The patient is able to stand but has difficulty rising from a seated position and requires assistance. Ambulation is very unstable gait again patient using wheelchair when available. SKIN: Shows warm and dry, good turgor. No edema. No sores, rashes or bruising throughout. IMPRESSION: Impression: 69-year-old female with 6-month history increasing pain low back bilateral lower extremities in a radicular fashion Plain films lumbar spine as noted Arthritis Lung cancer Cigarette smoking Plan: Options were discussed with the patient patient spouse who accompanies her visit today including conservative medical management physical therapies and interventional techniques. Patient would like to pursue interventional techniques we discussed a lumbar epidural steroid injection as patient has a clinical L4-5 radiculopathy bilaterally. Patient would like to proceed with this we will wait for preauthorization with her insurance provider. In the meantime patient will continue with stretching strength exercises that she is doing on her own and once authorization is obtained we will have her return for a translaminar approach L4-5 level lumbar epidural steroid injection. ANGELIQUE PARRISH MD Mar 05, 2020 13:30
== END | disposition home or self-care (01) ==
LOC: PNCL 10:23
PROVIDERS: ATTEND Anesthesiology
DX: M54.5 Low back pain (principal); M79.605 Pain in left leg; M79.604 Pain in right leg; M19.90 Unspecified osteoarthritis, unspecified site; E11.52 Type 2 diabetes mellitus with diabetic peripheral angiopathy with gangrene; E11.40 Type 2 diabetes mellitus with diabetic neuropathy, unspecified; E78.5 Hyperlipidemia, unspecified; I13.0 Hypertensive heart and chronic kidney disease with heart failure and stage 1 through stage 4 chronic kidney disease, or unspecified chronic kidney disease; I50.9 Heart failure, unspecified; E11.22 Type 2 diabetes mellitus with diabetic chronic kidney disease; N18.9 Chronic kidney disease, unspecified; G47.33 Obstructive sleep apnea (adult) (pediatric); J43.2 Centrilobular emphysema; E66.01 Morbid (severe) obesity due to excess calories; K21.9 Gastro-esophageal reflux disease without esophagitis; F17.210 Nicotine dependence, cigarettes, uncomplicated; Z90.49 Acquired absence of other specified parts of digestive tract; Z98.890 Other specified postprocedural states; Z79.899 Other long term (current) drug therapy; Z90.710 Acquired absence of both cervix and uterus; Z88.8 Allergy status to other drugs, medicaments and biological substances; Z91.041 Radiographic dye allergy status; Z82.3 Family history of stroke; Z83.3 Family history of diabetes mellitus; Z90.89 Acquired absence of other organs; Z68.38 Body mass index [BMI] 38.0-38.9, adult; Z82.49 Family history of ischemic heart disease and other diseases of the circulatory system; Z86.73 Personal history of transient ischemic attack (TIA), and cerebral infarction without residual deficits; Z98.49 Cataract extraction status, unspecified eye
CPT/HCPCS: 62323; 99214; G0463

== ENCOUNTER → 2020-03-19 | Outpatient (CLI) | payer OTHER ==
[2019-11-09 16:15] VITALS: BP 129/60
[~2020-03-19] MED LIST changes: +IOHEXOL 180 MG/ML 10 ML VIAL. ONE; +methylPREDNISolone ACETATE 40 MG/ML VIAL. ONE; +methylPREDNISolone ACETATE 80 MG/ML VIAL. ONE
--- NOTE | 2020-03-19 11:32 | PDOC ---
Progress Note - Pain Clinic Date of Service: DOS: DATE: 03/19/20 TIME: 11:30 Diagnosis: Dx: Lumbar radiculopathy with lumbar degenerative disease and lumbar spinal stenosis History or Present Illness: HPI: 69-year-old female returns follow-up status post initial evaluation preauthorization for lumbar epidural steroid injection. Patient is obtained that now would like to proceed. Patient reports still significant pain in the low back and the right lower extremity as it was previously low back posterior gluteus posterior lateral thigh anterior thigh medial thigh medial lower leg patient reports that sharp and aching unbearable at times on and off in intensity worse with standing and walking better with sitting or laying down but wakes her from sleep occasionally not every night. Patient reports her pain is a 10 on scale 10 is worse over the past week 10 on average 6 its least and is a 10 today. Patient reports no new motor or sensory deficits no new bowel or bladder incontinence or other complaints. Physical Exam: VS: Blood pressure is 117/89 pulse 83 respirations 16 temperature 97.9 F height and weight were deferred per patient's request that she is in a wheelchair. PE: PHYSICAL EXAMINATION: GENERAL: The patient is awake, alert, oriented, appropriate, very pleasant demeanor HEENT: Shows normocephalic, atraumatic. Extraocular movements are intact and symmetrical. NECK: Shows anterior throat supple without palpable lymphadenopathy noted. Swallow reflex symmetrical. CHEST: Shows normal on inspection. Breath sounds are clear bilaterally. HEART: Shows S1, S2 clear. No murmurs auscultated. ABDOMEN: Soft, nontender, nondistended, obese. No palpable organomegaly is noted. No rebound or guarding demonstrated. BACK: Shows spine grossly in the midline. Normal-appearing cervical lordotic curvature. There is slightly increased thoracic kyphosis, some minor flattening of the lumbar lordotic curvature. Lumbar paraspinous muscles show symmetrical on inspection, on palpation shows some moderate tenderness diffusely throughout the upper, middle and lower distribution of the paraspinous muscles, but without specific trigger points, without radiation of pain. The patient has good rotational motion of the lumbar spine, both laterally as well as extension and flexion without significant difficulty. No tenderness over the spinous processes, sacrum or sacroiliac regions. EXTREMITIES: Lower extremities show deep tendon reflexes 1+ in the patellar and tendo calcaneus tendons. Motor exam is 3 on a scale of 5 with right dorsiflexion, extension, quadriceps and hamstring flexion and 5/5 on the left. Peripheral pulses are 1+ posterior tibial. No peripheral edema is noted bilaterally. Lower extremities are warm and dry to touch, equal in color and appearance. SKIN: Shows warm and dry, good turgor. No edema. No sores, rashes or bruising throughout. Procedure: Procedure: Options were discussed with the patient. Patient chart reviewed his current medication regimen updated current review of systems updated today as well. We will proceed with a lumbar epidural steroid injection today with fluoroscopic guidance. Risks were discussed including but not limited to: Bleeding, infection, possibility of epidural hematoma and subsequent neurological compromise, dural puncture, headaches, spinal cord and/or nerve damage, side effects of steroid medication, and poor results regarding pain control. Patient understands wished to proceed. Patient will return to clinic in approximate 2 weeks for follow-up was counseled as to return appointment activity level and side effects to be aware of. Medication Injected: Med Injected: Procedure is lumbar epidural steroid injection under local anesthetic using sterile prep and drape at the L4-5 level using C-arm fluoroscopic guidance in both AP and lateral views medications injected is 120 mg Depo-Medrol + 10 mL preservative-free normal saline and 2 mL contrast- condition at discharge is stable patient tolerated procedure well had no complications. Condition at Discharge: Condition at Discharge: Condition at discharge is stable, patient tolerated procedure well and had no complications. ANGELIQUE PARRISH MD Mar 19, 2020 11:32
== END | disposition home or self-care (01) ==
LOC: PNCL 10:15
PROVIDERS: ATTEND Anesthesiology
DX: M51.16 Intervertebral disc disorders with radiculopathy, lumbar region (principal); M48.061 Spinal stenosis, lumbar region without neurogenic claudication; Z91.041 Radiographic dye allergy status
CPT/HCPCS: 62323; J1030; J1040; Q9965

== ENCOUNTER → 2020-04-02 | Outpatient (CLI) | payer OTHER ==
[2019-11-09 16:15] VITALS: BP 129/60
[~2020-04-02] MED LIST changes: -CALC600T6 PO; +CALC600T60 PO; -IOHEXOL 180 MG/ML 10 ML VIAL. ONE; +NABU750T11 PO; -NABU750T7 PO; +OXYC1TAB22 PO; -methylPREDNISolone ACETATE 40 MG/ML VIAL. ONE; -methylPREDNISolone ACETATE 80 MG/ML VIAL. ONE
--- NOTE | 2020-04-02 11:02 | PDOC ---
Progress Note - Pain Clinic Date of Service: DOS: DATE: 04/02/20 TIME: 10:58 Diagnosis: Dx: Lumbar radiculopathy with lumbar degenerative disease and lumbar spinal stenosis Myofascial pain History or Present Illness: HPI: 69-year-old female returns for follow-up status post lumbar epidural steroid action x1. Patient reports no significant improvement after the first injection and I had spoke with she and her about a week ago and tried a Medrol Dosepak which she is almost completed and is still not helping as well. Patient ports significant pain in the mid back low back upper back bilateral posterior hips and some minor radiation to the lower extremities. Patient which is worse with changing positions standing walking better with sitting or laying down but does awaken her from sleep at night patient reports her pain is a 10 on scale 10 is worse over the past week 10 on average 8 its least is a 10 today patient was aching and shooting stabbing constant severe throughout the upper back mid back low back she has been using heat pads also alternating with ice taking anti- inflammatories patient reports that her hydrocodone has run out and she did not feel like it was helping to begin with and so she has not renewed that as well. She continues to take nabumetone twice daily but does not see as significant benefit from this as well. We reviewed patient's CT scan of her thoracic and lumbar spine as well as hips with she and her today as well. Patient reports no new motor or sensory deficits no new bowel or bladder incontinence Physical Exam: VS: Pressure is 182/90 pulse 90 respirations 16 temperature is 98.4 degrees Fahrenheit weight is 238 pounds PE: PHYSICAL EXAMINATION: GENERAL: The patient is awake, alert, oriented, appropriate, very pleasant demeanor HEENT: Shows normocephalic, atraumatic. Extraocular movements are intact and sy mmetrical. NECK: Shows anterior throat supple without palpable lymphadenopathy noted. Swallow reflex symmetrical. CHEST: Shows normal on inspection. Breath sounds are clear bilaterally distant but without rales rhonchi or wheezes. HEART: Shows S1, S2 clear. No murmurs auscultated. ABDOMEN: Soft, nontender, nondistended, obese. No palpable organomegaly is noted. BACK: Shows spine grossly in the midline. Normal-appearing cervical lordotic curvature. There is slightly increased thoracic kyphosis, some minor flattening of the lumbar lordotic curvature. Lumbar paraspinous muscles show symmetrical on inspection, on palpation shows some moderate tenderness diffusely throughout the upper, middle and lower distribution of the paraspinous muscles bilaterally and also into the lower thoracic paraspinous musculature, firm and tender, with very firm ropelike musculature throughout the cervical paraspinous posterior trapezius musculature thoracic paraspinous musculature bilaterally as well as the lumbar paraspinous muscles bilaterally. Significantly tender even with moderate palpation at finger point pressure throughout every area palpated with significant pain patient withdrawing from the examining hand. No significant radiation is demonstrated to any of these trigger areas. EXTREMITIES: Lower extremities show deep tendon reflexes 1+ in the patellar and tendo calcaneus tendons. Motor exam is 3 on a scale of 5 with right dorsiflexion, extension, quadriceps and hamstring flexion and 5/5 on the left. Peripheral pulses are 1+ posterior tibial. No peripheral edema is noted bilaterally. Lower extremities are warm and dry to touch, equal in color and appearance. SKIN: Shows warm and dry, good turgor. No edema. No sores, rashes or bruising throughout. Procedure: Procedure: Options were discussed with the patient patient spouse who accompanied her visit today. Patient has had lumbar epidural steroid injections as well as sacroiliac joint injections has had physical therapy in the past and is doing stretching strengthening at home as well as heat and ice applications and oral medications. We discussed trigger point injections in the myofascial trigger points identified throughout the trapezius thoracic paraspinous lumbar paraspinous bi laterally. Patient would like to pursue this we will wait for preauthorization from her provider. She was given samples of Olya, 5 mg nightly with instructions side effects be aware of discussed with both she and her spouse. Patient will follow up once preauthorization is obtained and will plan on trigger point injections at that time. Medication Injected: Med Injected: None Condition at Discharge: Condition at Discharge: Condition at discharge is stable. ANGELIQUE PARRISH MD Apr 02, 2020 11:02
== END | disposition home or self-care (01) ==
LOC: PNCL 10:20
PROVIDERS: ATTEND Anesthesiology
DX: M51.16 Intervertebral disc disorders with radiculopathy, lumbar region (principal); M48.061 Spinal stenosis, lumbar region without neurogenic claudication; M79.10 Myalgia, unspecified site; I10 Essential (primary) hypertension; J45.909 Unspecified asthma, uncomplicated; K21.9 Gastro-esophageal reflux disease without esophagitis; E66.9 Obesity, unspecified; E11.9 Type 2 diabetes mellitus without complications; M19.90 Unspecified osteoarthritis, unspecified site; F17.210 Nicotine dependence, cigarettes, uncomplicated; Z98.890 Other specified postprocedural states; Z90.49 Acquired absence of other specified parts of digestive tract; Z72.89 Other problems related to lifestyle; Z88.8 Allergy status to other drugs, medicaments and biological substances; Z79.899 Other long term (current) drug therapy
CPT/HCPCS: G0463

== ENCOUNTER → 2020-04-16 | Outpatient (CLI) | payer OTHER ==
[2019-11-09 16:15] VITALS: BP 129/60
[~2020-04-16] MED LIST changes: +BUPIVACAINE MPF 0.25% 10 ML VIAL. ONE; +methylPREDNISolone ACETATE 40 MG/ML VIAL. ONE
--- NOTE | 2020-04-16 12:29 | PDOC ---
Progress Note - Pain Clinic Date of Service: DOS: DATE: 04/16/20 TIME: 12:24 Diagnosis: Dx: Lumbar radiculopathy with lumbar degenerative disease lumbar spinal stenosis Myofascial pain History or Present Illness: HPI: 69-year-old female returns for follow-up status post lumbar epidural steroid action x1 without significant improvement and preauthorization for trigger point injections which she is obtained now would like to proceed. Patient ports significant pain from the neck into the shoulders upper back mid back low back bilateral gluteus essentially left equal to right. Patient reports her pain is a 10 on scale 10 is worse in the past week 10 on average 7 its least is a 10 today. Patient reports no new motor or sensory deficit still aching sharp shooting and constant in the neck upper back mid back shoulders low back and gluteus as well. Patient has missed changed from hydrocodone to oxycodone by her primary physician reports this is helping slightly more she is getting better rest at night with the new medication change. Patient reports no new motor or sensory deficits no new bowel or bladder incontinence or other complaints. Physical Exam: VS: Blood pressure 141/71 pulse 103 respirations 20 temperature 99.1 F weight is 202 pounds PE: PHYSICAL EXAMINATION: GENERAL: The patient is awake, alert, oriented, appropriate, very pleasant demeanor, accompanied by her spouse. HEENT: Shows normocephalic, atraumatic. Extraocular movements are intact and symmetrical. NECK: Shows anterior throat supple without palpable lymphadenopathy noted. Swallow reflex symmetrical. CHEST: Shows normal on inspection. Breath sounds are clear bilaterally, no rales or rhonchi auscultated bilaterally. HEART: Shows S1, S2 clear. No murmurs auscultated. ABDOMEN: Soft, nontender, nondistended, obese. No palpable organomegaly is noted. BACK: Shows spine grossly in the midline. Normal-appearing cervical lordotic curvature. Cervical paraspinous muscles show symmetrical inspection on palpation with some significant tenderness and very firm ropelike musculature throughout the upper middle lower distribution of the cervical paraspinous musculature but without specific radiation. This is true into the superior medial and lateral trapezius slightly more on the right than the left but very firm ropelike musculature consistent with trigger point areas of muscle without radiation on palpation. There is increased thoracic kyphosis, some flattening of the lumbar lordotic curvature. Thoracic paraspinous muscles show symmetrical but with palpation some very firm ropelike musculature in the middle and upper distribution of the thoracic paraspinous muscles very firm consistent with trigger point areas of musculature without radiation. Lumbar paraspinous m uscles show symmetrical on inspection, has multiple areas in the upper middle lower distribution of the paraspinous musculature bilaterally very firm ropelike musculature again consistent with trigger point areas of muscle but without radiation. Also significant tenderness over the superior medial gluteus again worse on the left than the right but without specific radiation consistent with trigger point areas of musculature as well. EXTREMITIES: Lower extremities show deep tendon reflexes 1+ in the patellar and tendo calcaneus tendons. Motor exam is 3 on a scale of 5 with right dorsiflexion, extension, quadriceps and hamstring flexion and 4/5 on the left. Peripheral pulses are 1+ posterior tibial. No peripheral edema is noted bilaterally. Lower extremities are warm and dry to touch, equal in color and appearance. SKIN: Shows warm and dry, good turgor. No edema. No sores, rashes or bruising throughout. Procedure: Procedure: Options were discussed with the patient patient spouse who accompanied her at her visit today. We will proceed with trigger point ejections of the identified musculature. Risks were discussed including but not limited to bleeding infection possibility of intravascular injection sequelae spread to local anesthetic and numbness pneumothorax side effects of steroid medication and poor results regarding pain control. Patient understands wished to proceed. Patient return to clinic in approximately 2 weeks for follow-up was counseled as to return appointment activity level and side effects to be aware of. Medication Injected: Med Injected: Under sterile prep and drape using control syringe and 25-gauge 1/2 inch needle trigger points were identified and injected after negative aspiration each site in the bilateral cervical paraspinous musculature superior middle and lower, as well as the bilateral trapezius muscular bilateral thoracic paraspinous posterior and bilateral superior medial and inferior lumbar paraspinous posteri or also bilateral gluteus musculature superior medial aspect as well. A total of 16 cc of 0.25% bupivacaine was injected as well as a total of 40 mg of Depo- Medrol. Patient tolerated procedure well and had no complications. Condition at Discharge: Condition at Discharge: Condition at discharge is stable, patient tolerated the procedure well had no complications. ANGELIQUE PARRISH MD Apr 16, 2020 12:29
--- NOTE | 2020-04-16 12:30 | PDOC4 ---
PROCEDURE Procedure Patient was consented for trigger point injections. Risk were discussed inc luding but not limited to bleeding infection possibility of intravascular injection sequelae spread to local anesthetic and numbness pneumothorax side effects of steroid medication and poor results running pain control. Patient understands wishes to proceed. Under sterile prep and drape using control syringe and 25-gauge 1/2 inch needle trigger points were identified and injected after negative aspiration each site in the bilateral cervical paraspinous musculature superior middle and lower, as well as the bilateral trapezius muscular bilateral thoracic paraspinous posterior and bilateral superior medial and inferior lumbar paraspinous posterior also bilateral gluteus musculature superior medial aspect as well. A total of 16 cc of 0.25% bupivacaine was injected as well as a total of 40 mg of Depo-Medrol. Patient tolerated procedure well and had no complications. ANGELIQUE PARRISH MD Apr 16, 2020 12:30
== END | disposition home or self-care (01) ==
LOC: PNCL 11:04
PROVIDERS: ATTEND Anesthesiology
DX: M51.16 Intervertebral disc disorders with radiculopathy, lumbar region (principal); M48.061 Spinal stenosis, lumbar region without neurogenic claudication; M79.10 Myalgia, unspecified site; I10 Essential (primary) hypertension; J45.909 Unspecified asthma, uncomplicated; E66.9 Obesity, unspecified; K21.9 Gastro-esophageal reflux disease without esophagitis; E11.9 Type 2 diabetes mellitus without complications; M19.90 Unspecified osteoarthritis, unspecified site; F17.210 Nicotine dependence, cigarettes, uncomplicated; Z90.49 Acquired absence of other specified parts of digestive tract; Z90.710 Acquired absence of both cervix and uterus; Z98.890 Other specified postprocedural states; Z79.899 Other long term (current) drug therapy; Z88.8 Allergy status to other drugs, medicaments and biological substances
CPT/HCPCS: 20553; J1030; J3490

== ENCOUNTER 2020-06-19 23:06 | Emergency (ER) | payer OTHER ==
[~2020-06-19] VITALS: Ht 162.6 cm; Wt 93.0 kg
[~2020-06-19 23:06] MED LIST changes: -BUPIVACAINE MPF 0.25% 10 ML VIAL. ONE; +CALC600T6 PO; -CALC600T60 PO; -NABU750T11 PO; +NABU750T7 PO; -methylPREDNISolone ACETATE 40 MG/ML VIAL. ONE
[2020-06-19 23:56] LABS: BILIRUBIN,URINE SMALL (NEG); CLARITY,URINE CLEAR; COLOR,URINE AMBER; NITRITE,URINE NEGATIVE (NEG); PROTEIN,URINE 30 mg/dL (NEG-TRACE)
[2020-06-20 00:02] LABS: BACTERIA,URINE 0 /HPF (0-FEW); BARBITURATES NEG (NEG); BENZODIAZEPINES NEG (NEG); CANNABINOIDS NEG (NEG); COCAINE NEG (NEG); METHADONE NEG (NEG); OPIATES NEG (NEG); PHENCYCLIDINE NEG (NEG); RBC,URINE >40 /HPF (0-2); WBC,URINE OCC /HPF (0-4)
[2020-06-20 00:03] LABS: AMPHETAMINE/METHAMPHETAMINE NEG (NEG)
--- NOTE | 2020-06-20 00:39 | PHYS DOC ---
Past Medical History Past Medical History: Arthritis, Diabetes-Type II, Hypertension Additional Past Medical Histor: subdural hematoma,VERTIGO,CHRONIC PAIN Past Surgical History: Appendectomy, Cholecystectomy, Hysterectomy, Other Additional Past Surgical Histo: subdural hematoma, hernia repair Smoking Status: Current Every Day Smoker Alcohol Use: None Drug Use: None General Adult EDM: Chief Complaint: PAIN CONTROL HPI: HPI: 61-year-old female past medical history of subdural hematoma in 2004, diabetes and hypertension presents to the ED with her who is patient's DPOA, with complaints of increased urinary frequency for the past week, is concern for urinary tract infection. also reports that patient has been unable to refill her oxycodone 10 mg for her chronic bilateral hip and shoulder pain, last use was Tuesday night (is awaiting [facility]' office to call it in to the pharmacy). Took 2 Tylenol at 8 PM. Patient was admitted to the hospital for the past year w/concern for lung malignancy, patient is refusing chemo or further treatment aggressive treatment. Review of Systems: Review of Systems: Constitutional: Denies fever or chills, denies body aches or flulike symptoms Eyes: Denies change in visual acuity. [] HENT: Denies nasal congestion or sore throat. [] Respiratory: Denies cough or shortness of breath or hemoptysis Cardiovascular: Denies chest pain or edema or syncope GI: Denies abdominal pain, nausea, vomiting, bloody stools or diarrhea. [] : Denies dysuria or hematuria Musculoskeletal: Denies any new back pain/midline back pain, joint pain or deformities Integument: Denies rash or diaphoresis Neurologic: Denies headache, neck pain, focal weakness or sensory changes. [] Endocrine: Denies polyuria or polydipsia. [] Lymphatic: Denies swollen glands. [] Psychiatric: Denies depression or anxiety. [] Heart Score: C/O Chest Pain: No Risk Factors: Risk Factors: DM, Current or recent (<one month) smoker, HTN, HLP, family history of CAD, obesity. Risk Scores: Score 0 - 3: 2.5% MACE over next 6 weeks - Discharge Home Score 4 - 6: 20.3% MACE over next 6 weeks - Admit for Clinical Observation Score 7 - 10: 72.7% MACE over next 6 weeks - Early Invasive Strategies Allergies: Allergies: Allergies Coded Allergies Type Severity Reaction Last Updated Verified I S O L A T I O N *CONTACT* Allergy Unknown 11/15/17 Yes No Known Medication Allergies Allergy Unknown 11/15/17 Yes Physical Exam: PE: Constitutional: Well developed, well nourished, no acute distress, non-toxic appearance. HENT: Normocephalic, atraumatic, Eyes: EOMI, conjunctiva normal, no discharge. Neck: Normal range of motion, supple, Cardiovascular: S1/2 present, regular rhythm Lungs & Thorax: Speaking in full sentences, bilateral equal chest rise, no tachypnea or increased work of breathing Abdomen: soft, no tenderness, Skin: Warm, dry, no erythema, no rash. [] Back: No tenderness, no CVA tenderness. [] Extremities: No tenderness, no cyanosis, no lower extremity edema Neurologic: Alert and oriented X 3, normal motor function, normal sensory function, no focal deficits noted. [] Psychologic: Affect normal, judgement normal, mood normal. [] Current Patient Data: Labs: Laboratory Tests Test 06/19/20 23:48 Urine Collection Type Unknown Urine Color [place] Urine Clarity Clear Urine pH 6.0 (<5.0-8.0) Urine Specific [place] >=1.030 (1.000-1.030) Urine Protein 30 mg/dL (NEG-TRACE) Urine Glucose (UA) Negative mg/dL (NEG) Urine Ketones (Stick) Negative mg/dL (NEG) Urine Blood Moderate (NEG) Urine Nitrite Negative (NEG) Urine Bilirubin Small (NEG) Urine Urobilinogen Dipstick 1.0 mg/dL (0.2 mg/dL) Urine Leukocyte Esterase Negative (NEG) Urine RBC >40 /HPF (0-2) Urine WBC Occ /HPF (0-4) Urine Squamous Epithelial Cells Few /LPF Urine Bacteria 0 /HPF (0-FEW) Urine Mucus Mod /LPF Urine Opiates Screen Neg (NEG) Urine Methadone Screen Neg (NEG) Urine Barbiturates Neg (NEG) Urine Phencyclidine Screen Neg (NEG) Urine Amphetamine/Methamphetamine Neg (NEG) Urine Benzodiazepines Screen Neg (NEG) Urine Cocaine Screen Neg (NEG) Urine Cannabinoids Screen Neg (NEG) Urine Ethyl Alcohol Neg (NEG) Vital Signs: Vital Signs Date Time Temp Pulse Resp B/P (MAP) Pulse Ox O2 Delivery O2 Flow Rate FiO2 06/19/20 23:33 98.4 80 12 205/88 (127) 96 Room Air 98.4 EKG: EKG: sinus rhythm 84 bpm, NAD, prolonged QTC 469, no T wave inversions, no ST elevations or ST depressions Radiology/Procedures: Radiology/Procedures: IMAGING REPORT Signed PATIENT: RICKY BATISTA ACCOUNT: [id number] : 1950 LOCATION: ER AGE: 69 SEX: F EXAM STATUS: REG ER ORD. PHYSICIAN: MAGALI DENNY DO REASON: SHOULDER PAIN;ARTHRITIS PROCEDURE: SHOULDER BILAT 2+V XR SHOULDER 2+ VIEWS History: Reason: SHOULDER PAIN;ARTHRITIS / Spl. Instructions: / History: Technique: 3 views bilateral shoulders. Comparison: None. Findings: Right shoulder: Calcifications within the region of the right rotator cuff, may indicate calcific tendinosis. Normal alignment. No fracture. Mild acromioclavicular DJD. Right midlung mass measures 2.3 x 1.8 cm. Left shoulder: Mild acromioclavicular DJD. No dislocation. No fracture. Impression: 1. No acute osseous abnormality. 2. Calcifications within the region of the right rotator cuff, may indicate calcific tendinosis. 3. Right lung mass better evaluated on chest x-ray. Electronically signed by: Jreonimo Wright DO (06/20/2020 12:49 AM) [facility] DICTATED and SIGNED BY: JERONIMO WRIGHT DO DATE: 06/20/20 [id number] IMAGING REPORT Signed PATIENT: RICKY BATISTA ACCOUNT: [id number] : 1950 LOCATION: ER AGE: 69 SEX: F EXAM STATUS: REG ER ORD. PHYSICIAN: MAGALI DENNY DO REASON: hip pain PROCEDURE: PELVIS XR PELVIS 1-2V History: Reason: hip pain / Spl. Instructions: / History: Technique: AP view the pelvis. Comparison: October 17, 2019 Findings: Degraded evaluation due to patient body habitus. Normal alignment. No fracture. Lower lumbar spondylosis. Surgical clips right upper quadrant. Impression: 1. No acute osseous abnormality. 2. Lower lumbar spondylosis. Electronically signed by: Jeronimo Wright DO (06/20/2020 12:45 AM) [facility] DICTATED and SIGNED BY: JERONIMO WRIGHT DO DATE: 06/20/20 [id number] IMAGING REPORT Signed PATIENT: RICKY BATISTA ACCOUNT: [id number] : 1950 LOCATION: ER AGE: 69 SEX: F EXAM STATUS: REG ER ORD. PHYSICIAN: MAGALI DENNY DO REASON: CP; ARTHRITIS PROCEDURE: CHEST AP ONLY XR CHEST 1V History: Reason: CP; ARTHRITIS / Spl. Instructions: / History: Comparison: November 09, 2019 Findings: Unchanged right midlung mass measures 2.8 x 2.4 cm. No consolidation or pleural effusion. Normal heart size. No pneumothorax. Impression: 1. Unchanged right midlung mass. Electronically signed by: Jeronimo Wright DO (06/20/2020 12:50 AM) [facility] DICTATED and SIGNED BY: JERONIMO WRIGHT DO DATE: 06/20/20 [id number] 0 IMAGING REPORT Signed PATIENT: RICKY BATISTA ACCOUNT: [id number] : 1950 LOCATION: ER AGE: 69 SEX: F EXAM STATUS: REG ER ORD. PHYSICIAN: MAGALI DENNY DO REASON: back pain w/hematuria PROCEDURE: CT CHEST ABDOMEN PELVIS WO CT CHEST_ABDOMEN_ AND PELVIS WITHOUT CONTRAST History: Back pain. Hematuria. Technique: CT of the chest, abdomen and pelvis were performed without contrast. Coronal and sagittal reconstructions were performed. Exposure: One or more of the following individualized dose reduction techniques were utilized for this examination: 1. Automated exposure control 2. Adjustment of the mA and/or kV according to patient size 3. Use of iterative reconstruction technique. Comparison: CT chest November 08, 2019. CT abdomen pelvis February 08, 2018. Lumbar spine CT November 08, 2019 Findings: Chest: Atheromatous plaque throughout the aorta and branch vessels. Calcified mediastinal and hilar lymph nodes as well as calcified pulmonary nodules, likely prior granulomatous disease. No pathologic lymphadenopathy. Coronary artery calcifications. Right midlung irregular lobulated mass measures 2.7 x 2.6 cm, similar compared to prior allowing for differences in technique. No pleural effusion. No pneumothorax. Left upper lobe groundglass nodule (series 2 image 15), unchanged. Right middle lobe groundglass nodule (image 36), unchanged. Additional upper lobe was smaller groundglass nodules, unchanged. Abdomen and pelvis: The liver, spleen, adrenal glands, and pancreas are unremarkable. Prior cholecystectomy. Lobulated appearance the kidneys. Left superior renal solid-appearing lesion measures 1.1 x 1.2 cm, unchanged compared to prior lumbar spine CT. 0.8 x 0.5 cm calculus within the left renal pelvis. No hydronephrosis. Mild adjacent fat stranding. Decompressed urinary bladder. Normal appendix. Postoperative changes small bowel anastomosis. No evidence of bowel obstruction. Anterior abdominal wall mesh hernia repair. Diastases recti inferiorly. No pathologic lymphadenopathy. No ascites. Prior hysterectomy. Extensive atheromatous plaque throughout the nonaneurysmal abdominal aorta and branch vessels. Right upper abdominal wall lipoma measures 9.7 x 3.1 cm. Bones: Chronic T10 superior endplate mild compression deformity, unchanged. Moderate lower thoracic spondylosis. Increased L5 compression fracture with moderate height loss approximately 50 percent centrally. Mild retropulsion. No significant canal narrowing. Chronic L3 superior endplate compression deformity. Multilevel lumbar spinal stenosis most prominent L4-5 and L5-S1. Impression: Chest CT: 1. Unchanged right upper lobe mass. Recommend correlation with prior biopsy. 2. Multifocal groundglass nodules, unchanged. Recommend continued follow-up. Abdomen and pelvis CT: 1. 8 mm calculus within the left renal pelvis with adjacent fat stranding. No hydronephrosis. 2. Left renal hyperdense lesion, unchanged. Recommend ultrasound to exclude solid lesion. 3. Increased L5 moderate compression fracture compared to prior. MRI can further evaluate for acuity as clinically warranted. Electronically signed by: Jeronimo Wright DO (06/20/2020 1:25 AM) [facility] IMAGING REPORT Signed PATIENT: RICKY BATISTA ACCOUNT: [id number] : 1950 LOCATION: ER AGE: 69 SEX: F EXAM STATUS: REG ER ORD. PHYSICIAN: MAGALI DENNY DO REASON: hematuria, flank pain, r/o dissection PROCEDURE: CT ANGIO CHEST W ABD PEL W/ CTA CHEST_ABDOMEN_AND PELVIS History: Hematuria. Flank pain. Technique: CT angiogram chest abdomen and pelvis with intravenous contrast. Coronal and sagittal reconstructions were performed. 3-D reconstructions were performed. Exposure: One or more of the following individualized dose reduction techniques were utilized for this examination: 1. Automated exposure control 2. Adjustment of the mA and/or kV according to patient size 3. Use of iterative reconstruction technique. Comparison: Noncontrast CT June 20, 2020 Findings: Chest: No aortic aneurysm or dissection. Moderate atheromatous plaque within the thoracic aorta. No pathologic lymphadenopathy. Right upper lobe mass and bilateral ground glass nodules unchanged compared to recent prior. No pleural effusion. No pneumothorax. No consolidation. Upper abdomen: The liver, spleen, adrenal glands, and pancreas are unremarkable. Prior cholecystectomy. Previously identified left mid renal lesion enhances measures 1.1 x 0.9 cm (series 5 image 29). Additional left anterior enhancing lesion measures 0.7 x 0.6 cm (image 34). Additional bilateral renal hypodensities, likely cysts. Left renal pelvis calculus is unchanged although evaluation is degraded by contrast in the renal collecting system. No hydronephrosis. Mild left peripelvic infiltration, unchanged. Decompressed urinary bladder. Normal appendix. Postoperative changes small bowel anastomosis. No evidence of bowel obstruction. Anterior abdominal wall mesh hernia repair. Diastases recti inferiorly. No pathologic lymphadenopathy. No ascites. Prior hysterectomy. Right upper abdominal wall lipoma, unchanged. Extensive atheromatous plaque throughout the nonaneurysmal abdominal aorta. 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 Narrowing of the celiac artery origin. Patent superior mesenteric and inferior m esenteric arteries. Narrowing of the right renal artery origin. Patent left renal artery origin. Bones: Chronic T10 superior endplate mild compression deformity, unchanged. Moderate lower thoracic spondylosis. Increased L5 compression fracture with moderate height loss approximately 50 percent centrally. Mild retropulsion. No significant canal narrowing. Chronic L3 superior endplate compression deformity. Multilevel lumbar spondylosis most prominent L4-5 and L5-S1. Impression: 1. Enhancing left renal solid lesions, concerning for malignancy. 2. Unchanged nonobstructing calculus within the left renal pelvis with adjacent inflammatory changes. 3. Extensive atheromatous plaque throughout the aorta with chronic calcified dissection inferiorly. 4. L5 moderate compression fracture as previously stated. 5. Additional findings are unchanged from prior noncontrast CT. Electronically signed by: Jeronimo Wright DO (06/20/2020 3:28 AM) [facility] Course & Med Decision Making: Course & Med Decision Making Pertinent Labs and Imaging studies reviewed. (See chart for details) Concern for chronic back pain in the setting of increased urinary frequency and uncontrolled, asymptomatic hypertension with no evidence of endorgan damage. Urinalysis with no signs of infection, mild amount of blood more than 40 RBCs. Patient is seen ambulating to the bathroom multiple times to void. Patient with no chest pain, dyspnea or confusion. CT imaging concerning for left renal mass, likely cause of hematuria although cannot exclude recently passed kidney stone. Thoracic aorta does appear enlarged around 3.9 cm, was 3.8 cm in 2018-I reviewed the studies and it appears the patient does have a with extensive aortic atheromatous plaque throughout the aorta with chronic calcified dissection inferiorly (this appears similar to 2018 CT images). For this reason in the setting of hematuria and uncontrolled hypertension, I recommended inpatient admission. Patient declined and states her back pain is not new and has been chronic. Is followingup today with Dr. Le. Unable to convince pt with at bedside to be admitted. CT report printed and given to patient to take to primary care physician. Patient with no pain out of proportion to physical exam, is calm/resting and ambulatory to bathroom with no significant distress. Equal upper extremity and lower extremity pulses. States her pain is well controlled in the ED. Will discharge home with strict ED return precautions were given for worsening or severe abdominal or back pain, syncope, weakness, near syncope or neurologic deficits. Encouraged urgent outpatient follow-up with PMD and nephrology/oncology. Life-threatening processes were considered but are low suspicion at this time, given history, physical exam and ED workup. Pt was educated on all prescription medications and adverse effects. All patient's questions were answered and pt was stable at time of discharge. Life/limb-threatening differential includes but is not limited to, aortic di ssection/aneurysm, cauda equina syndrome, transverse myelitis, spinal cord/epidural compression syndromes, discitis, spinal stenosis, epidural abscess or hematoma, osteomyelitis, disc herniation, surgical abdomen, stable or unstable fracture, renal/ureteral colic, sepsis, meningitis, musculoskeletal injury, traumatic injury, intraabdominal/retroperitoneal or pelvic bleeding. I spoken with the patient and her caregivers. I explained the patient's condition, diagnoses and treatment plan based on the information available to me at this time. I have answered the patient and her caregiver's questions and addressed any concerns. The patient and her caregivers have a good understanding of patient's diagnosis, condition and treatment plan as can be expected at this point. Vital signs have been stable. Patient's condition is stable and appropriate for discharge from the emergency department. Patient will pursue further outpatient evaluation with primary care physician or other designated or consulting physician as outlined in the discharge instructions. The patient and/or caregivers are agreeable to this plan of care and follow-up instructions have been explained in detail. The patient and/or caregivers have received these instructions in written form and have expressed an understanding of the discharge instructions. The patient and/or caregivers are aware that any significant change of condition or worsening of symptoms should prompt immediate return to this or the closest emergency department or call to 911. Kamla Disclaimer: Kamla Disclaimer: This electronic medical record was generated, in whole or in part, using a voice recognition dictation system. Departure Departure Impression: Primary Impression: Back pain Additional Impressions: Hematuria Renal mass, left Uncontrolled hypertension Disposition: 01 DC HOME SELF CARE/HOMELESS Condition: STABLE Referrals: CHRISTOPH LE MD (PCP) follow up in 24-48 hours for re-evaluation Patient Instructions: Hematuria, Adult, Hypertension Additional Instructions: FOLLOW UP WITH: Hematology/Oncology [facility] Address: [address] [place] [address] FOLLOW UP WITH NEPHROLOGY: Nephrology MD [place], [place] Address: [address] [place] [address] EMERGENCY DEPARTMENT GENERAL DISCHARGE INSTRUCTIONS Thank you for coming to [facility] Emergency Department (ED) today and trusting us with you care. We trust that you had a positive experience in our Emergency Department. If you wish to speak to the department management, you may call the Director at [phone]. YOUR FOLLOW UP INSTRUCTIONS ARE FOLLOWS: 1. Do you have a private Doctor? If you do not have a private doctor, please ask for a resource list of physicians or clinics that may be able to assist you with follow up care. 2. The Emergency Physicain has interpreted your x-rays. The X-Ray specialist will also review them. If there is a change in the findings, you will be notified in 48 hours when at all possible. 3. A lab test or culture has been done, your results will be reviewed and you will be notified if you need a change in treatment. ADDITIONAL INSTRUCTIONS AND INFORMATION: 1. Your care today has been supervised by a physician who is specially trained in emergency care. Many problems require more than one evaluation for a complete diagnosis and treatment. We recommend that you schedule your follow up appointment as recommended to ensure complete treatment of you illness or injury. If you are unable to obtain follow up care and continue to have a problem, or if your condition worsens, we recommend that you return to the ED. 2. We are not able to safely determine your condition over the phone nor are we able to give sound medical advice over the phone. For these safety reasons, if you call for medical advice we will ask you to come to the ED for further evaluation. 3. If you have any questions regarding these discharge instructions please call the ED at [phone]. SAFETY INFORMATION: In the interest of safety, wellness, and injury prevention; we encourage you to wear your sealbelt, if you smoke; quite smoking, and we encourage family to use a protective helmet for bicycling and other sporting events that present an increased risk for head injury. IF YOUR SYMPTOMS WORSEN OR NEW SYMPTOMS DEVELOP, OR YOU HAVE CONCERNS ABOUT YOUR CONDITION; OR IF YOUR CONDITION WORSENS WHILE YOU ARE WAITING FOR YOUR FOLLOW UP APPOINTMENT; EITHER CONTACT YOUR PRIMARY CARE DOCTOR, THE PHYSICIAN WHOSE NAME AND NUMBER YOU WERE GIVEN, OR RETURN TO THE ED IMMEDIATELY. MAGALI VALENTINE DO Jun 20, 2020 00:39
--- NOTE | 2020-06-20 00:48 | RAD ---
XR PELVIS 1-2V History: Reason: hip pain / Spl. Instructions: / History: Technique: AP view the pelvis. Comparison: October 17, 2019 Findings: Degraded evaluation due to patient body habitus. Normal alignment. No fracture. Lower lumbar spondylo sis. Surgical clips right upper quadrant. Impression: 1. No acute osseous abnormality. 2. Lower lumbar spondylosis. Electronically signed by: Jeronimo Wright DO (06/20/2020 12:45 AM) [facility]
--- NOTE | 2020-06-20 00:51 | RAD ---
XR SHOULDER 2+ VIEWS History: Reason: SHOULDER PAIN;ARTHRITIS / Spl. Instructions: / History: Technique: 3 views bilateral shoulders. Comparison: None. Findings: Right shoulder: Calcifications within the region of the right rotator cuff, may indicate calcific ten dinosis. Normal alignment. No fracture. Mild acromioclavicular DJD. Right midlung mass measures 2.3 x 1.8 cm. Left shoulder: Mild acromioclavicular DJD. No dislocation. No fracture. Impression: 1. No acute osseous abnormality. 2. Calcifications within the region of the right rotator cuff, may indicate calcific tendinosis. 3. Right lung mass better evaluated on chest x-ray. Electronically signed by: Jeronimo Wright DO (06/20/2020 12:49 AM) [facility]
--- NOTE | 2020-06-20 00:52 | RAD ---
XR CHEST 1V History: Reason: CP; ARTHRITIS / Spl. Instructions: / History: Comparison: November 09, 2019 Findings: Unchanged right midlung mass measures 2.8 x 2.4 cm. No consolidation or pleural effusion. Normal hear t size. No pneumothorax. Impression: 1. Unchanged right midlung mass. Electronically signed by: Jeronimo Wright DO (06/20/2020 12:50 AM) [facility]
--- NOTE | 2020-06-20 01:21 | EKG ---
[facility] [address] [place] [address] Test Date: 2020-06-20 Test Time: 01:02:48 Pat Name: RICKY BATISTA Department: Room: Gender: F [employer]: : 1950 Requested By: MAGALI DENNY Order Number: [id number] Reading MD: Measurements Intervals [place] Rate: 84 P: 19 MI: 166 QRS: 60 QRSD: 84 T: 58 QT: 394 QTc: 469 Interpretive Statements SINUS RHYTHM QRS(T) CONTOUR ABNORMALITY CONSIDER ANTEROLATERAL MYOCARDIAL DAMAGE POSSIBLY ABNORMAL ECG RI6.01 No previous ECG available for comparison
--- NOTE | 2020-06-20 01:27 | RAD ---
CT CHEST_ABDOMEN_ AND PELVIS WITHOUT CONTRAST History: Back pain. Hematuria. Technique: CT of the chest, abdomen and pelvis were performed without contrast. Coronal and sagittal reconstructions were performed. Exposure: One or more of the following individualized dose reduction techniques were utilized for thi s examination: 1. Automated exposure control 2. Adjustment of the mA and/or kV according to patient size 3. Use of iterative reconstruction technique. Comparison: CT chest November 08, 2019. CT abdomen pelvis February 08, 2018. Lumbar spine CT November 08, 2019 Findings: Chest: Atheromatous plaque throughout the aorta and branch vessels. Calcified mediastinal and hilar l ymph nodes as well as calcified pulmonary nodules, likely prior granulomatous disease. No pathologic lymphadenopathy. Coronary artery calcifications. Right midlung irregular lobulated mass measures 2.7 x 2.6 cm, similar compared to prior allowing for differences in technique. No pleural effusion. No pneumothorax. Left upper lobe groundglass nodule (s eries 2 image 15), unchanged. Right middle lobe groundglass nodule (image 36), unchanged. Additional upper lobe was smaller groundglass nodules, unchanged. Abdomen and pelvis: The liver, spleen, adrenal glands, and pancreas are unremarkable. Prior cholecyst ectomy. Lobulated appearance the kidneys. Left superior renal solid-appearing lesion measures 1.1 x 1.2 cm, u nchanged compared to prior lumbar spine CT. 0.8 x 0.5 cm calculus within the left renal pelvis. No hy dronephrosis. Mild adjacent fat stranding. Decompressed urinary bladder. Normal appendix. Postoperative changes small bowel anastomosis. No evidence of bowel obstruction. Ant erior abdominal wall mesh hernia repair. Diastases recti inferiorly. No pathologic lymphadenopathy. N o ascites. Prior hysterectomy. Extensive atheromatous plaque throughout the nonaneurysmal abdominal a zi and branch vessels. Right upper abdominal wall lipoma measures 9.7 x 3.1 cm. Bones: Chronic T10 superior endplate mild compression deformity, unchanged. Moderate lower thoracic s pondylosis. Increased L5 compression fracture with moderate height loss approximately 50 percent cent rally. Mild retropulsion. No significant canal narrowing. Chronic L3 superior endplate compression de formity. Multilevel lumbar spinal stenosis most prominent L4-5 and L5-S1. Impression: Chest CT: 1. Unchanged right upper lobe mass. Recommend correlation with prior biopsy. 2. Multifocal groundglass nodules, unchanged. Recommend continued follow-up. Abdomen and pelvis CT: 1. 8 mm calculus within the left renal pelvis with adjacent fat stranding. No hydronephrosis. 2. Left renal hyperdense lesion, unchanged. Recommend ultrasound to exclude solid lesion. 3. Increased L5 moderate compression fracture compared to prior. MRI can further evaluate for acuity as clinically warranted. Electronically signed by: Jeronimo Wright DO (06/20/2020 1:25 AM) [facility]
[2020-06-20] MEDS ORDERED: oxyCODONE IR 5 MG TABLET PO ONE (01:30)
[2020-06-20 01:34] LABS: BASO # 0.1 x10^3/uL (0.0-0.2); BASO % 1 % (0-3); EOS # 0.2 x10^3/uL (0.0-0.7); EOS % 3 % (0-3); HEMATOCRIT 43.2 % (36.0-47.0); HEMOGLOBIN 14.7 g/dL (12.0-15.5); LYMPH # 1.3 x10^3/uL (1.0-4.8); LYMPH % 16 % (24-48); MEAN CORPUSCULAR HEMOGLOBIN 30 pg (25-35); MEAN CORPUSCULAR HGB CONC 34 g/dL (31-37); MEAN CORPUSCULAR VOLUME 89 fL (79-100); MONO # 0.7 x10^3/uL (0.0-1.1); MONO % 9 % (0-9); NEUT % 72 % (31-73); PLATELET COUNT 291 x10^3/uL (140-400); RED BLOOD COUNT 4.87 x10^6/uL (3.50-5.40); RED CELL DISTRIBUTION WIDTH 13.5 % (11.5-14.5); WHITE BLOOD COUNT 8.4 x10^3/uL (4.0-11.0)
[2020-06-20 01:48] LABS: CALCIUM 8.8 mg/dL (8.5-10.1); CREATININE 0.9 mg/dL (0.6-1.0); GFR 62.3; POTASSIUM 3.7 mmol/L (3.5-5.1)
[2020-06-20 01:53] LABS: ALBUMIN 3.5 g/dL (3.4-5.0); ALBUMIN/GLOBULIN RATIO 0.9 (1.0-1.7); TOTAL BILIRUBIN 1.1 mg/dL (0.2-1.0); TOTAL PROTEIN 7.4 g/dL (6.4-8.2)
[2020-06-20] MEDS ORDERED: LIDOCAINE (700MG/PATCH) PATCH. TD ONE (02:30)
[2020-06-20] MEDS ORDERED: KETOROLAC 30 MG/ML VIAL. IM ONE (02:30)
[2020-06-20] MEDS ORDERED: HYDROmorphone 2 MG/ML VIAL IVP ONE (03:00)
[2020-06-20] MEDS ORDERED: IOHEXOL 350 MG/ML 100 ML VIAL. IV ONE (03:00)
[2020-06-20] MEDS ORDERED: CONTRAST GIVEN. MC PRN (03:00)
--- NOTE | 2020-06-20 03:30 | RAD ---
CTA CHEST_ABDOMEN_AND PELVIS History: Hematuria. Flank pain. Technique: CT angiogram chest abdomen and pelvis with intravenous contrast. Coronal and sagittal sage nstructions were performed. 3-D reconstructions were performed. Exposure: One or more of the following individualized dose reduction techniques were utilized for thi s examination: 1. Automated exposure control 2. Adjustment of the mA and/or kV according to patient size 3. Use of iterative reconstruction technique. Comparison: Noncontrast CT June 20, 2020 Findings: Chest: No aortic aneurysm or dissection. Moderate atheromatous plaque within the thoracic aorta. No p athologic lymphadenopathy. Right upper lobe mass and bilateral ground glass nodules unchanged compared to recent prior. No pleur al effusion. No pneumothorax. No consolidation. Upper abdomen: The liver, spleen, adrenal glands, and pancreas are unremarkable. Prior cholecystectom y. Previously identified left mid renal lesion enhances measures 1.1 x 0.9 cm (series 5 image 29). Addit ional left anterior enhancing lesion measures 0.7 x 0.6 cm (image 34). Additional bilateral renal hyp odensities, likely cysts. Left renal pelvis calculus is unchanged although evaluation is degraded by contrast in the renal collecting system. No hydronephrosis. Mild left peripelvic infiltration, unchan ged. Decompressed urinary bladder. Normal appendix. Postoperative changes small bowel anastomosis. No evidence of bowel obstruction. Ant erior abdominal wall mesh hernia repair. Diastases recti inferiorly. No pathologic lymphadenopathy. N o ascites. Prior hysterectomy. Right upper abdominal wall lipoma, unchanged. Extensive atheromatous plaque throughout the nonaneurysmal abdominal aorta. 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 Narrowing of the celiac artery origin. Patent supe rior mesenteric and inferior mesenteric arteries. Narrowing of the right renal artery origin. Patent left renal artery origin. Bones: Chronic T10 superior endplate mild compression deformity, unchanged. Moderate lower thoracic s pondylosis. Increased L5 compression fracture with moderate height loss approximately 50 percent cent rally. Mild retropulsion. No significant canal narrowing. Chronic L3 superior endplate compression de formity. Multilevel lumbar spondylosis most prominent L4-5 and L5-S1. Impression: 1. Enhancing left renal solid lesions, concerning for malignancy. 2. Unchanged nonobstructing calculus within the left renal pelvis with adjacent inflammatory changes . 3. Extensive atheromatous plaque throughout the aorta with chronic calcified dissection inferiorly. 4. L5 moderate compression fracture as previously stated. 5. Additional findings are unchanged from prior noncontrast CT. Electronically signed by: Jeronimo Wright DO (06/20/2020 3:28 AM) [facility]
[2020-06-20 03:55] VITALS: BP 208/93
== END 2020-06-20 04:24 | disposition home or self-care (01) ==
LOC: ER 23:06
DX: N28.89 Other specified disorders of kidney and ureter (principal); R31.9 Hematuria, unspecified; I10 Essential (primary) hypertension; M54.9 Dorsalgia, unspecified; M25.512 Pain in left shoulder; M25.511 Pain in right shoulder; M19.90 Unspecified osteoarthritis, unspecified site; E11.9 Type 2 diabetes mellitus without complications; F17.200 Nicotine dependence, unspecified, uncomplicated; Z90.49 Acquired absence of other specified parts of digestive tract; Z90.89 Acquired absence of other organs; Z90.710 Acquired absence of both cervix and uterus
CPT/HCPCS: 36415; 71045; 71250; 71275; 72170; 73030; 74176; 74177; 80053; 80307; 81001; 84484; 85025; 93005; 96372; 96374; 99285; J1170; J1885; Q9967